=== PATIENT | male | born 1940 | race Caucasian/White ===

== ENCOUNTER → 2023-09-26 | Outpatient (CLI) | payer MEDICARE, SELFPAY ==
[2023-09-26 15:08] LABS: Creatinine, Serum 1.18 mg/dL (0.70-1.30); EST Glomerular Filtration Rate 63 mL/min (>60); Est Glom Filt Rate - Afr Amer 76 mL/min (>60)
== END | disposition home or self-care (01) ==
PROVIDERS: PCP Internal Medicine; Referring Provider Surgery Trauma Surgery; Visit Provider Surgery Trauma Surgery
DX: I65.21 Occlusion and stenosis of right carotid artery (principal)
CPT/HCPCS: 36415; 82565

== ENCOUNTER → 2023-10-11 | Outpatient (CLI) | payer MEDICARE, SELFPAY ==
--- NOTE | 2023-10-11 12:54 | ART_ITS ---
Reason For Study: Claudication Procedure A bilateral lower extremity continuous wave Doppler with analog waveform analysis,segmental pressures,and ankle brachial indexes without exercise. Left Segmental Pressures Left brachial= 114mmHg. Left posterior tibial artery = 186mmHg. Left dorsalis pedis artery = 170mmHg. Left digit = 169 mmHg. The left posterior tibial artery waveforms are triphasic. The left dorsalis pedis waveforms are triphasic. Right Segmental Pressures Right brachial= 164mmHg. Right posterior tibial artery = 175mmHg. Right dorsalis pedis artery = 163mmHg. Right digit = 127 mmHg. The right posterior tibial artery waveforms are triphasic. The right dorsalis pedis waveforms are triphasic. Indices The right ankle brachial index by the posterior tibial artery is 1.07. The right ankle brachial index by the dorsalis pedis is 0.99. The right digital-brachial index is 0.77. The left ankle brachial index by the posterior tibial artery is 1.13. The left ankle brachial index by the dorsalis pedis is 1.04. The left digital-brachial index is 1.03. VL/Lower Ext Art Exam w/o Exercis Interpretation Summary Right CORINNE 1.07, normal. TBI and Doppler/PVR waveforms of the right leg normal a t rest. Left CORINNE 1.13, normal. TBI and Doppler/PVR waveforms of the left leg normal at rest. Ordering Physician: Blake Gonzalez Referring Physician: Jaylen Delaney Performed By: Blas Palacios, RVT
--- NOTE | 2023-10-11 12:54 | CT_ITS ---
STUDY: CTA HEAD AND NECK WITH CONTRAST REASON FOR EXAM: Male, 82 years old. Carotid stenosis RADIATION DOSAGE (If Supplied By Facility): CTDIvol = ( 26.28 ) mGy, DLP = ( 1373.70 ) mGycm TECHNIQUE: CT angiography was performed with a multi-detector CT scanner. Data acquisition was obtained from the skull base through the vertex following intravenous administration of IV 100mL Isovue-370. MIP images were reconstructed from the axial data set. Post-processing of the angiographic images was performed, with multiplanar reformation and 3D reconstruction. Individualized dose optimization techniques were used for this CT. COMPARISON: No relevant priors. FINDINGS: Normal bilateral petrous carotid arteries. There is calcified plaque formation of the right cavernous carotid artery, without a cross-sectional luminal stenosis. There is calcified plaque formation of the left cavernous carotid artery, without a cross-sectional luminal stenosis. Normal right A1 segments of the anterior cerebral artery. Normal left A1 segments of the anterior cerebral artery. Normal intact anterior communicating artery (ACOM). Normal bilateral A2 segments of the anterior cerebral arteries. Normal right M1 and M2 segments of the middle cerebral arteries, with a normal M1 bifurcation. Normal left M1 and M2 segments of the middle cerebral arteries, with a normal M1 bifurcation. There is a persistent origin of the right posterior cerebral artery with absence of the posterior communicating artery (PCOM). There is a persistent origin of the left posterior cerebral artery with absence of the posterior communicating artery (PCOM). Normal bilateral vertebral arteries. Normal basilar artery with a normal basilar bifurcation. The visualized bilateral superior cerebellar (SCA) arteries are normal. Normal bilateral P1, P2 and visualized P3 segments of the posterior cerebral arteries. There is no demonstrated aneurysm of the [place]. Mild degree of cerebral atrophy. Focal hypodensity in the right villafana radiata suggestive of prior ischemic event. AORTIC ARCH: There is atherosclerotic calcific plaque formation of the aortic arch and great vessels arising from the aortic arch, without a hemodynamically significant stenosis. There is a normal origin of the brachiocephalic, left common carotid, and left subclavian arteries. Almost complete occlusion at the origin of the left subclavian artery. There is reconstitution in the region of the left clavicle. RIGHT CAROTID ARTERIES: Normal right common carotid artery (CCA). Normal right common carotid bulb. There is severe atherosclerotic plaque formation of the origin of the right internal carotid artery with a near complete occlusion. Normal visualized cervical portion of the right internal carotid artery. Normal origin of the right external carotid artery (ECA). LEFT CAROTID ARTERIES: Normal left common carotid artery (CCA). Normal left common carotid bulb. There is extensive atherosclerotic plaque formation of the origin of the left internal carotid artery with an estimated stenosis of greater than 70%. Normal visualized cervical portion of the left internal carotid artery. There is extensive atherosclerotic plaque formation of the origin of the left external carotid artery with an estimated stenosis of greater than 70%. VERTEBRAL ARTERIES: Normal bilateral vertebral arteries. CT/CTA Head AND Neck W/ Contrast IMPRESSION: High-grade stenosis of both internal carotid arteries at their origin worse on the right side. 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 Electronically Signed: Abhay Alcantar MD at 15:20 EST ,
== END | disposition home or self-care (01) ==
LOC: CVS 12:54
PROVIDERS: PCP Internal Medicine; Referring Provider Surgery Trauma Surgery; Visit Provider Surgery Trauma Surgery
DX: I65.21 Occlusion and stenosis of right carotid artery (principal); I73.9 Peripheral vascular disease, unspecified
CPT/HCPCS: 70496; 70498; 93923; Q9967

== ENCOUNTER → 2024-03-25 | Outpatient (CLI) | payer MEDICARE, SELFPAY ==
--- NOTE | 2024-03-25 13:06 | CDU_ITS ---
Reason For Study: stenosis Rt. Velocities/BP Lt. Velocities/BP Prox CCA 66.6/14.2 cm/sec. Prox CCA 126.6/15.2 cm/sec. Mid CCA 88.4/13.3 cm/sec. Mid CCA 77.6/12.7 cm/sec. Dist CCA 87.5/14.2 cm/sec. Dist CCA 121.1/13.0 cm/sec. Prox ICA 175.9/35.3 cm/sec. Subclavian artery 322.9/9 cm/sec. Mid ICA 139.4/37.1 cm/sec. Prox ICA 121.6/15.7 cm/sec. Dist ICA 88.8/20.0 cm/sec. Mid ICA 80.6/20.4 cm/sec. Rt. ICA/CCA = 1.9. Dist ICA 81.8 cm/sec. Prox ECA 229./13.8 cm/sec. Lt. ICA/CCA = 1.5. Rt. Vert. 87.2/11.3 cm/sec. Prox ECA 166.0/5.3 cm/sec. Lt. Vert. 69.0/9.6 cm/sec. Right Extracranial There is intimal thickening but no significant atherosclerotic plaque noted in the right common carotid artery. There is heterogeneous, irregular atherosclerotic plaque noted in the right internal carotid artery. There is heterogeneous, irregular atherosclerotic plaque noted in the right external carotid artery. Antegrade flow is noted in the right vertebral artery. Left Extracranial There is intimal thickening but no significant atherosclerotic plaque noted in the left common carotid artery. There is heterogeneous, irregular atherosclerotic plaque noted in the left internal carotid artery. There is heterogeneous, irregular atherosclerotic plaque noted in the left external carotid artery. Retrograde flow noted. Procedure Carotid Duplex 11104. This is a Carotid Duplex examination using B-mode, color flow and specral Doppler. The exam was diagnostic. Exam performed in department. VL/Carotid Duplex Ultrasound Interpretation Summary Moderate (50-69%) stenosis right extracranial internal carotid. Mild (<50%) stenosis left extracranial internal carotid. The Right vertebral is patent and antegrade. The Left vertebral flow is retrograde. Left subclavian artery with >70% stenosis Ordering Physician: Blake Gonzalez Referring Physician: Blake Gonzalze Performed By: Irma Adrian RVT
== END | disposition home or self-care (01) ==
LOC: CVS 13:05
PROVIDERS: PCP Internal Medicine; Referring Provider Surgery Trauma Surgery; Visit Provider Surgery Trauma Surgery
DX: I65.21 Occlusion and stenosis of right carotid artery (principal)
CPT/HCPCS: 93880

== ENCOUNTER → 2024-05-05 | Outpatient (CLI) | payer MEDICARE, SELFPAY ==
[2024-05-05 15:26] LABS: PSA,Total - Annual Screen 7.09 ng/mL (0.00-4.00)
== END | disposition home or self-care (01) ==
LOC: LAB 14:22
PROVIDERS: PCP Internal Medicine; Referring Provider Urology; Visit Provider Urology
DX: Z12.5 Encounter for screening for malignant neoplasm of prostate (principal)
CPT/HCPCS: 36415; 84153; G0103

== ENCOUNTER → 2024-10-28 | Outpatient (CLI) | payer MEDICARE, SELFPAY ==
--- NOTE | 2024-10-28 12:32 | CDU_ITS ---
Reason For Study Reason For Study: Carotid Stenosis Rt. Velocities/BP Lt. Velocities/BP Prox CCA 73.2/10.6 cm/sec. Prox CCA 94.9/9.3 cm/sec. Mid CCA 86.7/8.1 cm/sec. Mid CCA 83.3/13.9 cm/sec. Dist CCA 101.6/10.2 cm/sec. Dist CCA 88.8/10.2 cm/sec. Prox ICA 237.9/40.7 cm/sec. Prox ICA 105.2/28.5 cm/sec. Mid ICA 136.3/14.5 cm/sec. Mid ICA 75.6/15.5 cm/sec. Dist ICA 102.6/22.3 cm/sec. Dist ICA 80.6/11.8 cm/sec. Rt. ICA/CCA = 2.7. Lt. ICA/CCA = 1.3. Prox ECA 205.6/0.0 cm/sec. Prox ECA 134.4/4.7 cm/sec. Rt. Vert. 107.8/9.3 cm/sec. Right Extracranial There is heterogeneous, irregular atherosclerotic plaque noted in the right common carotid artery. There is heterogeneous, irregular atherosclerotic plaque noted in the right internal carotid artery. The atherosclerotic plaque causes acoustic shadowing. There is heterogeneous, irregular atherosclerotic plaque noted in the right external carotid artery. Antegrade flow is noted in the right vertebral artery. Left Extracranial There is heterogeneous, irregular atherosclerotic plaque noted in the left common carotid artery. There is heterogeneous, irregular atherosclerotic plaque noted in the left internal carotid artery. The atherosclerotic plaque causes acoustic shadowing. There is heterogeneous, irregular atherosclerotic plaque noted in the left external carotid artery. Retrograde flow noted in left vertebral artery. Procedure Carotid Duplex 26830. This is a Carotid Duplex examination using B-mode, color flow and specral Doppler. Exam performed in department. VL/Carotid Duplex Ultrasound Interpretation Summary Severe (>70%) stenosis right extracranial internal carotid. Mild (<50%) stenosis left extracranial internal carotid. The Right vertebral is patent and antegrade. The Left vertebral flow is retrograde. Ordering Physician: Reanna Diaz Referring Physician: Shanice Delaney MD Performed By: Hoa Teague RVT and Student
== END | disposition home or self-care (01) ==
LOC: CVS 12:30
PROVIDERS: PCP Internal Medicine; Referring Provider Physician Assistant; Visit Provider Physician Assistant
DX: I65.21 Occlusion and stenosis of right carotid artery (principal); I77.1 Stricture of artery
CPT/HCPCS: 93880

== ENCOUNTER → 2025-04-26 | Outpatient (CLI) | payer MEDICARE, SELFPAY ==
--- NOTE | 2025-04-26 12:55 | CDU_ITS ---
Reason For Study Reason For Study: Right ICA stenosis Rt. Velocities/BP Lt. Velocities/BP Prox CCA 77.8/11.6 cm/sec. Prox CCA 140.7/13.7 cm/sec. Mid CCA 69.2/12.6 cm/sec. Mid CCA 104.5/11.1 cm/sec. Dist CCA 76.8/13.5 cm/sec. Dist CCA 103.8/11.6 cm/sec. Prox ICA 213.3/47.7 cm/sec. Prox ICA 123.6/18.2 cm/sec. Mid ICA 97.2/22.6 cm/sec. Mid ICA 88.8/20 cm/sec. Dist ICA 114.8/22.6 cm/sec. Dist ICA 81.4/18.8 cm/sec. Rt. ICA/CCA = 3.08. Lt. ICA/CCA = 1.18. Prox ECA 187.4/8.6 cm/sec. Prox ECA 163.1 cm/sec. Rt. Vert. 88.5/16 cm/sec. Right Extracranial There is heterogeneous, irregular atherosclerotic plaque noted in the right common carotid artery. There is heterogeneous, irregular atherosclerotic plaque noted in the right internal carotid artery. The atherosclerotic plaque causes acoustic shadowing. There is heterogeneous, irregular atherosclerotic plaque noted in the right external carotid artery. Antegrade flow is noted in the right vertebral artery. Left Extracranial There is heterogeneous, irregular atherosclerotic plaque noted in the left common carotid artery. There is heterogeneous, irregular atherosclerotic plaque noted in the left internal carotid artery. The atherosclerotic plaque causes acoustic shadowing. There is heterogeneous, irregular atherosclerotic plaque noted in the left external carotid artery. Retrograde flow noted in the left vertebral artery. Procedure Carotid Duplex [id number]. This is a Carotid Duplex examination using B-mode, color flow and specral Doppler. Exam performed in department. VL/Carotid Duplex Ultrasound Interpretation Summary Moderate (50-69%) stenosis right extracranial internal carotid. Limited due to calcific shadowing. Mild (<50%) stenosis left extracranial internal carotid. The Right vertebral is patent and antegrade. The Left vertebral flow is retrograde. Ordering Physician: Reanna Diaz Referring Physician: Shanice Delaney Performed By: Hoa Teague RVT
--- NOTE | 2025-04-26 12:55 | CDU_ITS ---
Reason For Study Reason For Study: Right ICA stenosis Rt. Velocities/BP Lt. Velocities/BP Prox CCA 77.8/11.6 cm/sec. Prox CCA 140.7/13.7 cm/sec. Mid CCA 69.2/12.6 cm/sec. Mid CCA 104.5/11.1 cm/sec. Dist CCA 76.8/13.5 cm/sec. Dist CCA 103.8/11.6 cm/sec. Prox ICA 213.3/47.7 cm/sec. Prox ICA 123.6/18.2 cm/sec. Mid ICA 97.2/22.6 cm/sec. Mid ICA 88.8/20 cm/sec. Dist ICA 114.8/22.6 cm/sec. Dist ICA 81.4/18.8 cm/sec. Rt. ICA/CCA = 3.08. Lt. ICA/CCA = 1.18. Prox ECA 187.4/8.6 cm/sec. Prox ECA 163.1 cm/sec. Rt. Vert. 88.5/16 cm/sec. Right Extracranial There is heterogeneous, irregular atherosclerotic plaque noted in the right common carotid artery. There is heterogeneous, irregular atherosclerotic plaque noted in the right internal carotid artery. The atherosclerotic plaque causes acoustic shadowing. There is heterogeneous, irregular atherosclerotic plaque noted in the right external carotid artery. Antegrade flow is noted in the right vertebral artery. Left Extracranial There is heterogeneous, irregular atherosclerotic plaque noted in the left common carotid artery. There is heterogeneous, irregular atherosclerotic plaque noted in the left internal carotid artery. The atherosclerotic plaque causes acoustic shadowing. There is heterogeneous, irregular atherosclerotic plaque noted in the left external carotid artery. Retrograde flow noted in the left vertebral artery. Procedure Carotid Duplex [id number]. This is a Carotid Duplex examination using B-mode, color flow and specral Doppler. Exam performed in department. VL/Carotid Duplex Ultrasound Interpretation Summary Moderate (50-69%) stenosis right extracranial internal carotid. Limited due to calcific shadowing. Mild (<50%) stenosis left extracranial internal carotid. The Right vertebral is patent and antegrade. The Left vertebral flow is retrograde. Ordering Physician: Reanna Diaz Referring Physician: Shanice Delaney Performed By: Hoa Teague RVT
--- OUTSIDE RECORDS SUMMARY | 2025-04-26 20:01 | XMS RPT_ITS | CCD ---
Author Organization [facility] Care Team Providers Care Document Improvement Specialist Name Role Phone BRENNAN BARROS Attending Unavailable BRENNAN BARROS Primary Care Unavailable BRENNAN BARROS Admitting Unavailable Dr. Blake Gonzalez Attending Provider Dr. Cody Delaney Primary Care Provider [phone] CODY DELANEY MD Attending Unavailable CODY DELANEY MD Admitting Unavailable CODY DELANEY MD Primary Care Unavailable CODY DELANEY MD Referring Unavailable LUIS LEBLANC JR Admitting Unavailable LUIS LEBLANC JR Primary Care Unavailable LUIS LEBLANC JR Attending Unavailable CODY DELANEY MD Consulting Unavailable PROVIDER, UNKNOWN Consulting Unavailable PROVIDER, UNKNOWN Consulting Unavailable PROVIDER, UNKNOWN Consulting Unavailable TOMEKA GOMES MD Admitting Unavailable TOMEKA GOMES MD Primary Care Unavailable TOMEKA GOMES MD Attending Unavailable TOMEKA GOMES MD Admitting Unavailable TOMEKA GOMES MD Primary Care Unavailable CODY DELANEY MD Consulting Unavailable TOMEKA GOMES MD Attending Unavailable PROVIDER, UNKNOWN Consulting Unavailable PROVIDER, UNKNOWN Consulting Unavailable PROVIDER, UNKNOWN Consulting Unavailable CODY DELANEY MD Attending Unavailable OCDY DELANEY MD Admitting Unavailable CODY DELANEY MD Primary Care Unavailable CODY DELANEY MD Consulting Unavailable PROVIDER, UNKNOWN Consulting Unavailable PROVIDER, UNKNOWN Consulting Unavailable PROVIDER, UNKNOWN Consulting Unavailable TOMEKA GOMES MD Admitting Unavailable TOMEKA GOMES MD Primary Care Unavailable TOMEKA GOMES MD Attending Unavailable TOMEKA GOMES MD Attending Unavailable TOMEKA GOMES MD Admitting Unavailable TOMEKA GOMES MD Primary Care Unavailable TOMEKA GOMES MD Admitting Unavailable TOMEKA GOMES MD Primary Care Unavailable TOMEKA GOMES MD Attending Unavailable Cody Delaney Primary Care Unavailable Issac Maravilla Referring Unavailable Issac Maravilla Attending Unavailable Cody Delaney Primary Care Unavailable Reanna Diaz Referring Unavailable Reanna Diaz Attending [facility] Unavailable Reanna Diaz Referring Unavailable Reanna Diaz Attending Unavailable [facility] Primary Care Unavailable Blake Gonzalez Attending Unavailable Reanna Diaz Referring Unavailable Medications Current Medications Medication Drug Class(es) Dates Sig (Normalized) Sig (Original) 8 hr acetaminophen 650 mg extended release oral tablet (2 sources) Start: 02-25-2023 take 1 tablet by mouth every eight hours Acetaminophen (Tylenol Arthritis Pain) 650 mg tablet extended release Active 650 MG PO Q8H February 24, 2023 11:00pm atorvastatin 20 mg oral tablet (2 sources) HMG-CoA Reductase Inhibitor Start: 09-26-2023 take 1 tablet by mouth at bedtime Atorvastatin (Lipitor) 20 mg tablet Active 20 MG PO AT BEDTIME September 26, 2023 12:00am folic acid 1 mg oral tablet (2 sources) Start: 02-25-2023 take 1 mg by mouth twice daily Folic Acid Active 1 MG PO TWICE A DAY February 24, 2023 11:00pm latanoprost 0.05 mg/ml ophthalmic solution (2 sources) Prostaglandin Analog Start: 02-25-2023 Latanoprost Active 1 DRP OPHTHALMIC EVERY EVENING February 24, 2023 11:00pm both eyes methotrexate 2.5 mg oral tablet (2 sources) Folate Analog Metabolic Inhibitor Start: 02-25-2023 take 12.5 mg by mouth every week Methotrexate Sodium Active 12.5 MG PO EVERY WEEK February 24, 2023 11:00pm Problems Active Problems Problem Classification Problem Date Documented Da te Episodic/Chronic Disorders of lipid metabolism (1 source) Pure hypercholesterolemi a, unspecified; Translations: [Pure hypercholesterolemi a, unspecified] Onset: 12-17-2024 Chronic Essential hypertension (3 sources) Hypertensive disorder; Translations: [Essential (primary) hypertension] Onset: 12-17-2024 02-25-2023 Chronic Occlusion or stenosis of precerebral arteries (6 sources) Right carotid artery stenosis; Translations: [Occlusion and stenosis of right carotid artery] Onset: 11-12-2024 09-26-2023 Chronic Other circulatory disease (2 sources) Subclavian artery stenosis; Translations: [Stricture of artery] 02-25-2023 Chronic Other circulatory disease (2 sources) Abnormal radial pulse; Translations: [Other specified symptoms and signs involving the circulatory and respiratory systems] 02-25-2023 Episodic Other nervous system disorders (2 sources) Cold feet; Translations: [Unspecified disturbances of skin sensation] 02-25-2023 Episodic Peripheral and visceral atherosclerosis (2 sources) Peripheral vascular disease; Translations: [Peripheral vascular disease, unspecified] 02-25-2023 Chronic Rheumatoid arthritis and related disease (3 sources) Rheumatoid arthritis with rheumatoid factor of unspecified site without organ or systems involvement; Translations: [Rheumatoid arthritis with rheumatoid factor of unspecified site without organ or systems involvement] Onset: 07-31-2024 Chronic Substance-related disorders (2 sources) Tobacco dependence syndrome; Translations: [Nicotine dependence, unspecified, uncomplicated] 02-25-2023 Chronic Past or Other Problems Problem Classification Problem Date Documented Da te Episodic/Chronic Other aftercare (1 source) 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; Translations: [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] Onset: 07-31-2024 Episodic Other screening for suspected conditions (not mental disorders or infectious disease) (2 sources) Other specified abnormal findings of blood chemistry; Translations: [Encounter for screening for malignant neoplasm of prostate] Onset: 05-26-2024 Episodic Results Test Name Value Interpretation Reference Range Facility CBC + DIFFon 04-08-2025 Baso # 0.02 x10EE3/UL Normal 0.00 - 0.10 [facility] Comment on above: Performed By: #### 2 71763 #### [place] [address] Basophils/100 WBC (Bld) 0.3 % Normal 0.0 - 2.0 [facility] Comment on above: Performed By: #### 2 41544 #### [place] [address] CBC + DIFF Normal [facility] Comment on above: Result Comment: CBC- COMPLETE BLOOD COUNT Performed By: #### 2 11293 #### [facility],[address] [place] [address] EO # 0.07 x10EE3/UL Normal 0.00 - 0.50 [facility] Comment on above: Performed By: #### 2 54535 #### [facility],[address] [place], [place] [id number] Eosinophils/100 WBC (Bld) 1.2 % Normal 0.0 - 7.0 [facility] Comment on above: Performed By: #### 2 31727 #### [facility],[address] [place] [address] Erythrocyte distribution width (RBC) [Ratio] 13.5 % Normal 12.0 - 15.6 [facility] Comment on above: Performed By: #### 2 04275 #### [facility],[address] [place] [address] Hematocrit (Bld) [Volume fraction] 41.4 % Normal 40.0 - 52.0 [facility] Comment on above: Performed By: #### 2 59729 #### [facility],[address] [place], [place] [address] Hemoglobin (Bld) [Mass/Vol] 14.4 g/dL Normal 13.0 - 17.5 [facility] Comment on above: Performed By: #### 2 52778 #### [facility],[address] [place] [address] 84915 Lymph # 1.04 x10EE3/UL Normal 0.80 - 2.80 [facility] Comment on above: Performed By: #### 2 78577 #### [facility],[address] [place] [address] 91278 Lymphocytes/100 WBC (Bld) 16.9 % Low 20.0 - 45.0 [facility] Comment on above: Performed By: #### 2 20705 #### [facility],[address] [place] [address] 92495 MANUAL DIFF N/A Normal [facility] Comment on above: Performed By: #### 2 01704 #### [facility],[address] [place] [address] 76454 MCH (RBC) [Entitic mass] 35 pg High 27 - 33 [facility] Comment on above: Performed By: #### 2 15659 #### [facility],[address] [place] [address] 67473 MCHC 35 X10 3 Normal 32 - 36 [facility] Comment on above: Performed By: #### 2 53764 #### [facility],[address] [place] [address] 96925 MCV (RBC) [Entitic vol] 100 fL High 81 - 98 [facility] Comment on above: Performed By: #### 2 05463 #### [facility],[address] [place] [address] 85168 Wharton # 0.66 x10EE3/UL Normal 0.20 - 1.00 [facility] Comment on above: Performed By: #### 2 49262 #### [facility],[address] [place] [address] 41836 MONOS % 10.8 % High 0.0 - 10.0 [facility] Comment on above: Performed By: #### 2 50854 #### [facility],[address] [place] [address] 01506 Morphology Yao (Bld) [Interp] N/A Normal [facility] Comment on above: Performed By: #### 2 02984 #### [facility],[address] [place] [address] 12113 Neut # 4.36 x10EE3/UL Normal 1.50 - 7.10 [facility] Comment on above: Performed By: #### 2 61070 #### [facility],[address] [place] [address] 68878 Neutrophils/100 WBC (Bld) 70.8 % Normal 46.0 - 76.0 [facility] Comment on above: Performed By: #### 2 30547 #### [facility],[address] [place] [address] 64772 PLATELET 186 x10EE3/UL Normal 150 - 450 [facility] Comment on above: Performed By: #### 2 95795 #### [facility],[address] [place] [address] 24296 Platelet mean volume (Bld) [Entitic vol] 9.1 fL Normal 6.4 - 10.5 [facility] Comment on above: Result Comment: AUTO MATED DIFFERENTIAL Performed By: #### 2 40128 #### [facility],[address] [place] [address] 52812 RBC 4.14 x 10EE6/UL Low 4.50 - 6.00 [facility] Comment on above: Performed By: #### 2 86318 #### [facility],[address] [place] [address] 99121 WBC 6.2 x 10EE3/UL Normal 4.5 - 10.8 [facility] Comment on above: Performed By: #### 2 48586 #### [facility],[address] [place] [address] 12700 CMP with eGFRon 04-08-2025 AGE 84 years Normal [facility] Comment on above: Performed By: #### 2 26477 #### [facility],[address] [place] [address] 32846 Albumin [Mass/Vol] 3.5 g/dL Normal 3.4 - 5.0 [facility] Comment on above: Performed By: #### 2 39083 #### [facility],[address] [place] [address] 55495 Albumin/Globulin [Mass ratio] 1.0 {ratio} Normal 0.9 - 1.6 [facility] Comment on above: Performed By: #### 2 25825 #### [facility],[address] [place] [address] 64291 ALK PHOS 118 U/L High 46 - 116 [facility] Comment on above: Performed By: #### 2 33950 #### [facility],[address] [place] [address] 68131 ALT [Catalytic activity/Vol] 42 U/L Normal 16 - 63 [facility] Comment on above: Performed By: #### 2 47748 #### [facility],[address] [place] [address] 83983 Anion gap [Moles/Vol] 11 mmol/L Normal 10 - 20 [facility] Comment on above: Performed By: #### 2 27155 #### [facility],[address] [place] [address] 40121 AST [Catalytic activity/Vol] 25 U/L Normal 15 - 37 [facility] Comment on above: Performed By: #### 2 50143 #### [facility],[address] [place] [address] 51491 B/C RATIO 30 ratio Normal 0 - 30 [facility] Comment on above: Performed By: #### 2 61536 #### [facility],[address] [place] [address] 08713 Bilirubin [Mass/Vol] 0.7 mg/dL Normal 0.2 - 1.0 [facility] Comment on above: Performed By: #### 2 86453 #### [facility],[address] [place] [address] 40464 Calcium [Mass/Vol] 9.1 mg/dL Normal 8.5 - 10.1 [facility] Comment on above: Performed By: #### 2 29837 #### [facility],[address] [place] [address] 01477 Chloride [Moles/Vol] 108 mmol/L High 98 - 107 [facility] Comment on above: Performed By: #### 2 15995 #### [facility],[address] [place] [address] 82067 CMP with eGFR Normal [facility] Comment on above: Result Comment: COMP REHENSIVE METABOLIC PANEL Performed By: #### 2 84792 #### [facility],[address] [place] [address] 71757 CO2 [Moles/Vol] 27.3 mmol/L Normal 21.0 - 32.0 [facility] Comment on above: Performed By: #### 2 29990 #### [facility],[address] [place] [address] 55212 Creatinine [Mass/Vol] 1.23 mg/dL Normal 0.70 - 1.30 [facility] Comment on above: Performed By: #### 2 30918 #### [facility],[address] [place] [address] 05801 eGFR 56 ML/MINUTE Low 60 - 999 [facility] Comment on above: Performed By: #### 2 61504 #### [facility],[address] [place] [address] 41225 GFR/1.73 sq M.predicted among non-blacks MDRD (S/P/Bld) [Vol rate/Area] mL/min/{1.73_m2} Normal 60 - 999 [facility] Comment on above: Result Comment: ACCO RDING TO THE NATIONAL KIDNEY DISEASE EDUCATION PROGRAM(NKDE), A NORMAL eGFR IS A VALUE GREATER THAN OR EQUAL TO 60 ML/MIN/1.73 SQ METERS. CHRONIC KIDNEY DISEASE: <60mL/MIN/1.73 SQ METERS KIDNEY FAILURE: <15mL/MIN/1.73 SQ METERS THIS TEST SHOULD ONLY BE USED FOR PATIENTS 18 YEARS OF AGE AND OLDER. Performed By: #### 2 45107 #### [facility],[address] [place] [address] 75137 Globulin (S) [Mass/Vol] 3.6 g/dL Normal 1.5 - 3.8 [facility] Comment on above: Performed By: #### 2 70708 #### [facility],[address] [place] [address] 35562 Glucose [Mass/Vol] 90 mg/dL Normal 74 - 106 [facility] Comment on above: Performed By: #### 2 73839 #### [facility],[address] [place] [address] Potassium [Moles/Vol] 4.6 mmol/L Normal 3.5 - 5.1 [facility] Comment on above: Performed By: #### 2 78064 #### [facility],[address] [place] [address] Protein [Mass/Vol] 7.1 g/dL Normal 6.4 - 8.2 [facility] Comment on above: Performed By: #### 2 00533 #### [place] [address] Sodium [Moles/Vol] 142 mmol/L Normal 136 - 145 [facility] Comment on above: Performed By: #### 2 43121 #### [place] [address] Urea nitrogen [Mass/Vol] 37 mg/dL High 7 - 18 [facility] Comment on above: Performed By: #### 2 70048 #### [place] [address] CBC + DIFFon 01-13-2025 Baso # 0.01 x10EE3/UL Normal 0.00 - 0.10 [facility] Comment on above: Performed By: #### 2 39384 #### [place] [id number] Basophils/100 WBC (Bld) 0.1 % Normal 0.0 - 2.0 [facility] Comment on above: Performed By: #### 2 02693 #### [place] [address] CBC + DIFF Normal [facility] Comment on above: Result Comment: CBC- COMPLETE BLOOD COUNT Performed By: #### 2 94889 #### [address] [address] EO # 0.03 x10EE3/UL Normal 0.00 - 0.50 [facility] Comment on above: Performed By: #### 2 39753 #### [facility],[address] [place] [address] 89303 Eosinophils/100 WBC (Bld) 0.5 % Normal 0.0 - 7.0 [facility] Comment on above: Performed By: #### 2 71287 #### [facility],[address] [place] [address] Erythrocyte distribution width (RBC) [Ratio] 13.1 % Normal 12.0 - 15.6 [facility] Comment on above: Performed By: #### 2 12220 #### [facility],[address] [place] [address] Hematocrit (Bld) [Volume fraction] 43.0 % Normal 40.0 - 52.0 [facility] Comment on above: Performed By: #### 2 24398 #### [facility],[address] [place] [address] Hemoglobin (Bld) [Mass/Vol] 14.5 g/dL Normal 13.0 - 17.5 [facility] Comment on above: Performed By: #### 2 72724 #### [facility],[address] [place] [address] 60912 Lymph # 0.87 x10EE3/UL Normal 0.80 - 2.80 [facility] Comment on above: Performed By: #### 2 34362 #### [facility],[address] [place] [address] 14472 Lymphocytes/100 WBC (Bld) 15.4 % Low 20.0 - 45.0 [facility] Comment on above: Performed By: #### 2 81856 #### [facility],[address] [place], [place] [address] MANUAL DIFF N/A Normal [facility] Comment on above: Performed By: #### 2 59263 #### [facility],[address] [place] [address] MCH (RBC) [Entitic mass] 35 pg High 27 - 33 [facility] Comment on above: Performed By: #### 2 88884 #### [facility],[address] [place] [address] MCHC 34 X10 3 Normal 32 - 36 [facility] Comment on above: Performed By: #### 2 03116 #### [facility],[address] [place], [place] [address] MCV (RBC) [Entitic vol] 103 fL High 81 - 98 [facility] Comment on above: Performed By: #### 2 26296 #### [facility],[address] [place] [address] Wharton # 0.36 x10EE3/UL Normal 0.20 - 1.00 [facility] Comment on above: Performed By: #### 2 93295 #### [facility],[address] [place], [place] [address] MONOS % 6.3 % Normal 0.0 - 10.0 [facility] Comment on above: Performed By: #### 2 97101 #### [facility],[address] [place], [place] [address] Morphology Yao (Bld) [Interp] N/A Normal [facility] Comment on above: Performed By: #### 2 46551 #### [facility],[address] [place] [address] Neut # 4.41 x10EE3/UL Normal 1.50 - 7.10 [facility] Comment on above: Performed By: #### 2 21116 #### [facility],[address] [place] [address] Neutrophils/100 WBC (Bld) 77.7 % High 46.0 - 76.0 [facility] Comment on above: Performed By: #### 2 45251 #### [facility],[address] [place] [address] 78208 PLATELET 214 x10EE3/UL Normal 150 - 450 [facility] Comment on above: Performed By: #### 2 14064 #### [facility],[address] [place] [address] 25334 Platelet mean volume (Bld) [Entitic vol] 9.1 fL Normal 6.4 - 10.5 [facility] Comment on above: Result Comment: AUTO MATED DIFFERENTIAL Performed By: #### 2 71626 #### [facility],[address] [place] [address] 11068 RBC 4.19 x 10EE6/UL Low 4.50 - 6.00 [facility] Comment on above: Performed By: #### 2 84570 #### [facility],[address] [place] [address] 87153 WBC 5.7 x 10EE3/UL Normal 4.5 - 10.8 [facility] Comment on above: Performed By: #### 2 48141 #### [facility],[address] [place] [address] 16478 CMP with eGFRon 01-13-2025 AGE 84 years Normal [facility] Comment on above: Performed By: #### 2 69729 #### [facility],[address] [place] [address] 75848 Albumin [Mass/Vol] 3.6 g/dL Normal 3.4 - 5.0 [facility] Comment on above: Performed By: #### 2 33171 #### [facility],[address] [place] [address] 79360 Albumin/Globulin [Mass ratio] 1.0 {ratio} Normal 0.9 - 1.6 [facility] Comment on above: Performed By: #### 2 49505 #### [facility],[address] [place] [address] 14598 ALK PHOS 112 U/L Normal 46 - 116 [facility] Comment on above: Performed By: #### 2 56143 #### [facility],[address] [place] [address] 59937 ALT [Catalytic activity/Vol] 30 U/L Normal 16 - 63 [facility] Comment on above: Performed By: #### 2 77381 #### [facility],[address] [place] [address] 80224 Anion gap [Moles/Vol] 13 mmol/L Normal 10 - 20 [facility] Comment on above: Performed By: #### 2 35833 #### [facility],[address] [place] [address] 37548 AST [Catalytic activity/Vol] 22 U/L Normal 15 - 37 [facility] Comment on above: Performed By: #### 2 01655 #### [facility],[address] [place] [address] 35625 B/C RATIO 26 ratio Normal 0 - 30 [facility] Comment on above: Performed By: #### 2 38059 #### [facility],[address] [place] [address] 52664 Bilirubin [Mass/Vol] 0.7 mg/dL Normal 0.2 - 1.0 [facility] Comment on above: Performed By: #### 2 02363 #### [facility],[address] [place] [address] 28786 Calcium [Mass/Vol] 9.6 mg/dL Normal 8.5 - 10.1 [facility] Comment on above: Performed By: #### 2 82976 #### [facility],[address] [place] [address] 27679 Chloride [Moles/Vol] 107 mmol/L Normal 98 - 107 [facility] Comment on above: Performed By: #### 2 27850 #### [facility],[address] [place] [address] 04780 CMP with eGFR Normal [facility] Comment on above: Result Comment: COMP REHENSIVE METABOLIC PANEL Performed By: #### 2 41007 #### [facility],[address] [place] [address] 22485 CO2 [Moles/Vol] 27.8 mmol/L Normal 21.0 - 32.0 [facility] Comment on above: Performed By: #### 2 94474 #### [facility],[address] [place] [address] 97810 Creatinine [Mass/Vol] 1.09 mg/dL Normal 0.70 - 1.30 [facility] Comment on above: Performed By: #### 2 67336 #### [facility],[address] [place] [address] 78100 GFR/1.73 sq M.predicted among non-blacks MDRD (S/P/Bld) [Vol rate/Area] mL/min/{1.73_m2} Normal 60 - 999 [facility] Comment on above: Performed By: #### 2 52994 #### [facility],[address] [place] [address] Result Comment: ACCO RDING TO THE NATIONAL KIDNEY DISEASE EDUCATION PROGRAM(NKDE), A NORMAL eGFR IS A VALUE GREATER THAN OR EQUAL TO 60 ML/MIN/1.73 SQ METERS. CHRONIC KIDNEY DISEASE: <60mL/MIN/1.73 SQ METERS KIDNEY FAILURE: <15mL/MIN/1.73 SQ METERS THIS TEST SHOULD ONLY BE USED FOR PATIENTS 18 YEARS OF AGE AND OLDER. Globulin (S) [Mass/Vol] 3.5 g/dL Normal 1.5 - 3.8 [facility] Comment on above: Performed By: #### 2 61617 #### [facility],[address] [place] [address] 78907 Glucose [Mass/Vol] 151 mg/dL High 74 - 106 [facility] Comment on above: Performed By: #### 2 25135 #### [facility],[address] [place] [address] 04478 Potassium [Moles/Vol] 4.3 mmol/L Normal 3.5 - 5.1 [facility] Comment on above: Performed By: #### 2 07844 #### [address] [address] Protein [Mass/Vol] 7.1 g/dL Normal 6.4 - 8.2 [facility] Comment on above: Performed By: #### 2 58623 #### [address] [address] Sodium [Moles/Vol] 143 mmol/L Normal 136 - 145 [facility] Comment on above: Performed By: #### 2 43015 #### [address] [address] Urea nitrogen [Mass/Vol] 28 mg/dL High 7 - 18 [facility] Comment on above: Performed By: #### 2 16811 #### [address] [address] T4, FREE [CCL]on 12-18-2024 Free T4 [Mass/Vol] 1.2 ng/dL Normal 0.9-1.7 [facility] Comment on above: Result Comment: [facility] [address] [place] [address] Wojciech Fuentes III, M.D. [id number] Performed By: #### 2 33533 #### [address] [address] CBC + DIFFon 12-17-2024 Baso # 0.02 x10EE3/UL Normal 0.00 - 0.10 [facility] Comment on above: Performed By: #### 2 54983 #### [address] [address] Basophils/100 WBC (Bld) 0.3 % Normal 0.0 - 2.0 [facility] Comment on above: Performed By: #### 2 03795 #### [facility] [place] [address] 26715 CBC + DIFF Normal [facility] Comment on above: Result Comment: CBC- COMPLETE BLOOD COUNT Performed By: #### 2 92882 #### [facility],[address] [place] [address] 19644 EO # 0.02 x10EE3/UL Normal 0.00 - 0.50 [facility] Comment on above: Performed By: #### 2 35888 #### [facility],[address] [place] [address] 78681 Eosinophils/100 WBC (Bld) 0.3 % Normal 0.0 - 7.0 [facility] Comment on above: Performed By: #### 2 61358 #### [facility],[address] [place] [address] 61914 Erythrocyte distribution width (RBC) [Ratio] 12.7 % Normal 12.0 - 15.6 [facility] Comment on above: Performed By: #### 2 44634 #### [facility],[address] [place] [address] 08818 Hematocrit (Bld) [Volume fraction] 42.0 % Normal 40.0 - 52.0 [facility] Comment on above: Performed By: #### 2 11863 #### [facility],[address] [place] [address] 14207 Hemoglobin (Bld) [Mass/Vol] 13.9 g/dL Normal 13.0 - 17.5 [facility] Comment on above: Performed By: #### 2 87044 #### [facility],[address] [place] [address] 98114 Lymph # 0.98 x10EE3/UL Normal 0.80 - 2.80 [facility] Comment on above: Performed By: #### 2 16449 #### [facility],[address] [place] [address] 59439 Lymphocytes/100 WBC (Bld) 16.9 % Low 20.0 - 45.0 [facility] Comment on above: Performed By: #### 2 97161 #### [facility],[address] [place] [address] 34041 MANUAL DIFF N/A Normal [facility] Comment on above: Performed By: #### 2 82622 #### [facility],[address] [place] [address] MCH (RBC) [Entitic mass] 34 pg High 27 - 33 [facility] Comment on above: Performed By: #### 2 12430 #### [facility],[address] [place] [address] MCHC 33 X10 3 Normal 32 - 36 [facility] Comment on above: Performed By: #### 2 79063 #### [facility],[address] [place] [address] MCV (RBC) [Entitic vol] 102 fL High 81 - 98 [facility] Comment on above: Performed By: #### 2 39645 #### [facility],[address] [place] [address] Wharton # 0.65 x10EE3/UL Normal 0.20 - 1.00 [facility] Comment on above: Performed By: #### 2 12447 #### [facility],[address] [place] [address] 78608 MONOS % 11.3 % High 0.0 - 10.0 [facility] Comment on above: Performed By: #### 2 80845 #### [facility],[address] [place], [place] [address] Morphology Yao (Bld) [Interp] N/A Normal [facility] Comment on above: Performed By: #### 2 51622 #### [facility],[address] [place] [address] 78350 Neut # 4.10 x10EE3/UL Normal 1.50 - 7.10 [facility] Comment on above: Performed By: #### 2 44910 #### [facility],[address] [place] [address] 10336 Neutrophils/100 WBC (Bld) 71.1 % Normal 46.0 - 76.0 [facility] Comment on above: Performed By: #### 2 74579 #### [facility],[address] [place] [address] 61827 PLATELET 190 x10EE3/UL Normal 150 - 450 [facility] Comment on above: Performed By: #### 2 19341 #### [facility],[address] [place] [address] 59868 Platelet mean volume (Bld) [Entitic vol] 8.7 fL Normal 6.4 - 10.5 [facility] Comment on above: Result Comment: AUTO MATED DIFFERENTIAL Performed By: #### 2 83185 #### [facility],[address] [place] [address] 88197 RBC 4.12 x 10EE6/UL Low 4.50 - 6.00 [facility] Comment on above: Performed By: #### 2 56720 #### [facility],[address] [place] [address] 89277 WBC 5.8 x 10EE3/UL Normal 4.5 - 10.8 [facility] Comment on above: Performed By: #### 2 01106 #### [facility],[address] [place] [address] 42796 CMP with eGFRon 12-17-2024 AGE 84 years Normal [facility] Comment on above: Performed By: #### 2 92520 #### [facility],[address] [place] [address] 81509 Albumin [Mass/Vol] 3.5 g/dL Normal 3.4 - 5.0 [facility] Comment on above: Performed By: #### 2 14658 #### [facility],[address] [place] [address] 11218 Albumin/Globulin [Mass ratio] 1.0 {ratio} Normal 0.9 - 1.6 [facility] Comment on above: Performed By: #### 2 64750 #### [facility],[address] [place] [address] 83407 ALK PHOS 117 U/L High 46 - 116 [facility] Comment on above: Performed By: #### 2 83896 #### [facility],[address] [place] [address] 10747 ALT [Catalytic activity/Vol] 28 U/L Normal 16 - 63 [facility] Comment on above: Performed By: #### 2 19571 #### [facility],[address] [place] [address] 78061 Anion gap [Moles/Vol] 11 mmol/L Normal 10 - 20 [facility] Comment on above: Performed By: #### 2 46969 #### [facility],[address] [place] [address] 50906 AST [Catalytic activity/Vol] 17 U/L Normal 15 - 37 [facility] Comment on above: Performed By: #### 2 21215 #### [facility],[address] [place] [address] 10596 B/C RATIO 22 ratio Normal 0 - 30 [facility] Comment on above: Performed By: #### 2 44692 #### [facility],[address] [place] [address] 25370 Bilirubin [Mass/Vol] 0.7 mg/dL Normal 0.2 - 1.0 [facility] Comment on above: Performed By: #### 2 72263 #### [facility],[address] [place] [address] 59714 Calcium [Mass/Vol] 9.0 mg/dL Normal 8.5 - 10.1 [facility] Comment on above: Performed By: #### 2 77155 #### [facility],[address] [place] [address] 60062 Chloride [Moles/Vol] 106 mmol/L Normal 98 - 107 [facility] Comment on above: Performed By: #### 2 21809 #### [facility],[address] [place] [address] 41103 CMP with eGFR Normal [facility] Comment on above: Result Comment: COMP REHENSIVE METABOLIC PANEL Performed By: #### 2 34489 #### [facility],[address] [place], [place] [address] CO2 [Moles/Vol] 28.8 mmol/L Normal 21.0 - 32.0 [facility] Comment on above: Performed By: #### 2 31626 #### [facility],[address] [place] [address] Creatinine [Mass/Vol] 1.05 mg/dL Normal 0.70 - 1.30 [facility] Comment on above: Performed By: #### 2 23718 #### [place] [address] GFR/1.73 sq M.predicted among non-blacks MDRD (S/P/Bld) [Vol rate/Area] mL/min/{1.73_m2} Normal 60 - 999 [facility] Comment on above: Performed By: #### 2 51391 #### [facility],[address] [place] [address] Result Comment: ACCO RDING TO THE NATIONAL KIDNEY DISEASE EDUCATION PROGRAM(NKDE), A NORMAL eGFR IS A VALUE GREATER THAN OR EQUAL TO 60 ML/MIN/1.73 SQ METERS. CHRONIC KIDNEY DISEASE: <60mL/MIN/1.73 SQ METERS KIDNEY FAILURE: <15mL/MIN/1.73 SQ METERS THIS TEST SHOULD ONLY BE USED FOR PATIENTS 18 YEARS OF AGE AND OLDER. Globulin (S) [Mass/Vol] 3.4 g/dL Normal 1.5 - 3.8 [facility] Comment on above: Performed By: #### 2 27831 #### [facility],[address] [place], [place] [address] Glucose [Mass/Vol] 93 mg/dL Normal 74 - 106 [facility] Comment on above: Performed By: #### 2 53000 #### [facility],[address] [place] [address] 24116 Potassium [Moles/Vol] 4.3 mmol/L Normal 3.5 - 5.1 [facility] Comment on above: Performed By: #### 2 61068 #### [facility],[address] [place] [address] 52084 Protein [Mass/Vol] 6.9 g/dL Normal 6.4 - 8.2 [facility] Comment on above: Performed By: #### 2 85226 #### [facility],[address] [place] [address] 72060 Sodium [Moles/Vol] 141 mmol/L Normal 136 - 145 [facility] Comment on above: Performed By: #### 2 02784 #### [facility],[address] [place] [address] 70124 Urea nitrogen [Mass/Vol] 23 mg/dL High 7 - 18 [facility] Comment on above: Performed By: #### 2 38867 #### [facility],[address] [place] [address] 60877 LIPID PROFILEon 12-17-2024 Cholesterol [Mass/Vol] 158 mg/dL Normal 0 - 240 [facility] Comment on above: Performed By: #### 2 33563 #### [facility],[address] [place] [address] 47714 Cholesterol in HDL [Mass/Vol] 72 mg/dL High 40 - 60 [facility] Comment on above: Performed By: #### 2 25700 #### [facility],[address] [place] [address] 13217 Cholesterol in LDL [Mass/Vol] 81 mg/dL Normal 0 - 129 [facility] Comment on above: Performed By: #### 2 11726 #### [facility],[address] [place] [address] Cholesterol.total/Beatrice sterol in HDL [Mass ratio] 2.2 {ratio} Normal 0.0 - 5.0 [facility] Comment on above: Performed By: #### 2 14541 #### [facility],[address] [place] [address] 59868 Lipid 1996 panel Normal [facility] Comment on above: Result Comment: LIPI D PROFILE Performed By: #### 2 82933 #### [facility],[address] [place] [address] 31458 Triglyceride [Mass/Vol] 27 mg/dL Normal 0 - 150 [facility] Comment on above: Performed By: #### 2 93442 #### [facility],[address] [place] [address] 67035 TSHon 12-17-2024 TSH Qn 3.05 m[IU]/L Normal 0.35 - 3.74 [facility] Comment on above: Performed By: #### 2 01655 #### [facility],[address] [place] [address] 97846 Carotid Duplex Ultrasoundon 10-28-2024 Carotid Duplex Ultrasound [facility] [address] [place] [address] Carotid Duplex Ultrasound 10/28/24 1300 MR#: [id number] Acct: [id number] Name: SABIHA WEBBER Rep #: [id number] : 1940 83 From: Blake Gonzalez MD Attending Dr: TATY Maciel Status: REG CLI Ordering Dr: Reanna Diaz Date: 10/28/24 Location: [facility] Sex: M C Admitted: Reason For Study Reason For Study: Carotid Stenosis Rt. Velocities/BP Lt. Velocities/BP Prox CCA 73.2/10.6 cm/sec. Prox CCA 94.9/9.3 cm/sec. Mid CCA 86.7/8.1 cm/sec. Mid CCA 83.3/13.9 cm/sec. Dist CCA 101.6/10.2 cm/sec. Dist CCA 88.8/10.2 cm/sec. Prox ICA 237.9/40.7 cm/sec. Prox ICA 105.2/28.5 cm/sec. Mid ICA 136.3/14.5 cm/sec. Mid ICA 75.6/15.5 cm/sec. Dist ICA 102.6/22.3 cm/sec. Dist ICA 80.6/11.8 cm/sec. Rt. ICA/CCA = 2.7. Lt. ICA/CCA = 1.3. Prox ECA 205.6/0.0 cm/sec. Prox ECA 134.4/4.7 cm/sec. Rt. Vert. 107.8/9.3 cm/sec. Right Extracranial There is heterogeneous, irregular atherosclerotic plaque noted in the right common carotid artery. There is heterogeneous, irregular atherosclerotic plaque noted in the right internal carotid artery. The atherosclerotic plaque causes acoustic shadowing. There is heterogeneous, irregular atherosclerotic plaque noted in the right external carotid artery. Antegrade flow is noted in the right vertebral artery. Left Extracranial There is heterogeneous, irregular atherosclerotic plaque noted in the left common carotid artery. There is heterogeneous, irregular atherosclerotic plaque noted in the left internal carotid artery. The atherosclerotic plaque causes acoustic shadowing. There is heterogeneous, irregular atherosclerotic plaque noted in the left external carotid artery. Retrograde flow noted in left vertebral artery. Procedure Carotid Duplex 03116. This is a Carotid Duplex examination using B-mode, color flow and specral Doppler. Exam performed in department. VL/Carotid Duplex Ultrasound Interpretation Summary Severe (>70%) stenosis right extracranial internal carotid. Mild (<50%) stenosis left extracranial internal carotid. The Right vertebral is patent and antegrade. The Left vertebral flow is retrograde. Ordering Physician: Reanna Diaz Referring Physician: Cody Delaney MD Performed By: Hoa Teague RVT and Student 10/29/24940 Date Blake Gonzalez MD CC: TATY Maciel; Dr. Cody Delaney MD Date Dictated: 10/28/24 1300 Date Transcribed: 10/29/24940 [employer] Bobbin Winder: Signed Normal [facility] CBC + DIFFon 10-16-2024 Baso # 0.03 x10EE3/UL Normal 0.00 - 0.10 [facility] Comment on above: Performed By: #### 2 49321 #### [facility],[address] [place] [address] Basophils/100 WBC (Bld) 0.3 % Normal 0.0 - 2.0 [facility] Comment on above: Performed By: #### 2 67928 #### [place] [address] CBC + DIFF Normal [facility] Comment on above: Result Comment: CBC- COMPLETE BLOOD COUNT Performed By: #### 2 54708 #### [place] [address] EO # 0.06 x10EE3/UL Normal 0.00 - 0.50 [facility] Comment on above: Performed By: #### 2 30894 #### [facility],[address] [place] [address] Eosinophils/100 WBC (Bld) 0.6 % Normal 0.0 - 7.0 [facility] Comment on above: Performed By: #### 2 03187 #### [place] [address] Erythrocyte distribution width (RBC) [Ratio] 13.6 % Normal 12.0 - 15.6 [facility] Comment on above: Performed By: #### 2 70857 #### [place] [address] Hematocrit (Bld) [Volume fraction] 42.4 % Normal 40.0 - 52.0 [facility] Comment on above: Performed By: #### 2 47685 #### [facility],[address] [place] [address] 90534 Hemoglobin (Bld) [Mass/Vol] 14.1 g/dL Normal 13.0 - 17.5 [facility] Comment on above: Performed By: #### 2 23252 #### [facility],[address] [place], [place] [address] Lymph # 0.70 x10EE3/UL Low 0.80 - 2.80 [facility] Comment on above: Performed By: #### 2 64960 #### [facility],[address] [place], [place] [address] Lymphocytes/100 WBC (Bld) 6.7 % Low 20.0 - 45.0 [facility] Comment on above: Performed By: #### 2 74443 #### [facility],[address] [place] [address] 73623 MANUAL DIFF N/A Normal [facility] Comment on above: Performed By: #### 2 01263 #### [facility],[address] [place] [address] 72988 MCH (RBC) [Entitic mass] 34 pg High 27 - 33 [facility] Comment on above: Performed By: #### 2 12795 #### [facility],[address] [place] [address] 25026 MCHC 33 X10 3 Normal 32 - 36 [facility] Comment on above: Performed By: #### 2 42569 #### [facility],[address] [place] [address] 61029 MCV (RBC) [Entitic vol] 104 fL High 81 - 98 [facility] Comment on above: Performed By: #### 2 78039 #### [facility],[address] [place] [address] 78917 Wharton # 1.04 x10EE3/UL High 0.20 - 1.00 [facility] Comment on above: Performed By: #### 2 17075 #### [facility],[address] [place] [address] 60405 MONOS % 10.1 % High 0.0 - 10.0 [facility] Comment on above: Performed By: #### 2 31271 #### [facility],[address] [place] [address] Morphology Yao (Bld) [Interp] N/A Normal [facility] Comment on above: Performed By: #### 2 29168 #### [facility],[address] [place] [address] Neut # 8.55 x10EE3/UL High 1.50 - 7.10 [facility] Comment on above: Performed By: #### 2 52178 #### [facility],[address] [place], [place] [address] Neutrophils/100 WBC (Bld) 82.4 % High 46.0 - 76.0 [facility] Comment on above: Performed By: #### 2 11790 #### [facility],[address] [place] [address] 59168 PLATELET 194 x10EE3/UL Normal 150 - 450 [facility] Comment on above: Performed By: #### 2 02230 #### [facility],[address] [place] [address] 84093 Platelet mean volume (Bld) [Entitic vol] 9.5 fL Normal 6.4 - 10.5 [facility] Comment on above: Result Comment: AUTO MATED DIFFERENTIAL Performed By: #### 2 99689 #### [facility],[address] [place] [address] 46704 RBC 4.10 x 10EE6/UL Low 4.50 - 6.00 [facility] Comment on above: Performed By: #### 2 96503 #### [facility],[address] [place] [address] 04729 WBC 10.4 x 10EE3/UL Normal 4.5 - 10.8 [facility] Comment on above: Performed By: #### 2 55387 #### [facility],[address] [place] [address] 13889 CMP with eGFRon 10-16-2024 AGE 83 years Normal [facility] Comment on above: Performed By: #### 2 48416 #### [facility],[address] [place] [address] 31116 Albumin [Mass/Vol] 3.3 g/dL Low 3.4 - 5.0 [facility] Comment on above: Performed By: #### 2 57181 #### [facility],[address] [place], [place] [address] Albumin/Globulin [Mass ratio] 1.0 {ratio} Normal 0.9 - 1.6 [facility] Comment on above: Performed By: #### 2 89668 #### [facility],[address] [place] [address] 59979 ALK PHOS 100 U/L Normal 46 - 116 [facility] Comment on above: Performed By: #### 2 74610 #### [facility],[address] [place] [address] 79552 ALT [Catalytic activity/Vol] 36 U/L Normal 16 - 63 [facility] Comment on above: Performed By: #### 2 73728 #### [facility],[address] [place] [address] 68145 Anion gap [Moles/Vol] 7 mmol/L Low 10 - 20 [facility] Comment on above: Performed By: #### 2 11616 #### [facility],[address] [place] [address] 06649 AST [Catalytic activity/Vol] 21 U/L Normal 15 - 37 [facility] Comment on above: Performed By: #### 2 74691 #### [facility],[address] [place] [address] 69303 B/C RATIO 23 ratio Normal 0 - 30 [facility] Comment on above: Performed By: #### 2 45684 #### [facility],[address] [place] [address] 13886 Bilirubin [Mass/Vol] 0.6 mg/dL Normal 0.2 - 1.0 [facility] Comment on above: Performed By: #### 2 80708 #### [facility],[address] [place] [address] 58216 Calcium [Mass/Vol] 9.0 mg/dL Normal 8.5 - 10.1 [facility] Comment on above: Performed By: #### 2 94492 #### [facility],[address] [place] [address] 30058 Chloride [Moles/Vol] 107 mmol/L Normal 98 - 107 [facility] Comment on above: Performed By: #### 2 36261 #### [facility],[address] [place] [address] 96422 CMP with eGFR Normal [facility] Comment on above: Result Comment: COMP REHENSIVE METABOLIC PANEL Performed By: #### 2 35492 #### [facility],[address] [place] [address] 73241 CO2 [Moles/Vol] 30.8 mmol/L Normal 21.0 - 32.0 [facility] Comment on above: Performed By: #### 2 30859 #### [facility],[address] [place] [address] 19769 Creatinine [Mass/Vol] 1.11 mg/dL Normal 0.70 - 1.30 [facility] Comment on above: Performed By: #### 2 00834 #### [facility],[address] [place] [address] 65893 GFR/1.73 sq M.predicted among non-blacks MDRD (S/P/Bld) [Vol rate/Area] mL/min/{1.73_m2} Normal 60 - 999 [facility] Comment on above: Performed By: #### 2 79053 #### [facility],[address] [place] [address] 31594 Result Comment: ACCO RDING TO THE NATIONAL KIDNEY DISEASE EDUCATION PROGRAM(NKDE), A NORMAL eGFR IS A VALUE GREATER THAN OR EQUAL TO 60 ML/MIN/1.73 SQ METERS. CHRONIC KIDNEY DISEASE: <60mL/MIN/1.73 SQ METERS KIDNEY FAILURE: <15mL/MIN/1.73 SQ METERS THIS TEST SHOULD ONLY BE USED FOR PATIENTS 18 YEARS OF AGE AND OLDER. Globulin (S) [Mass/Vol] 3.3 g/dL Normal 1.5 - 3.8 [facility] Comment on above: Performed By: #### 2 69948 #### [facility],[address] [place] [address] 06607 Glucose [Mass/Vol] 86 mg/dL Normal 74 - 106 [facility] Comment on above: Performed By: #### 2 14809 #### [facility],[address] [place] [address] 41530 Potassium [Moles/Vol] 4.1 mmol/L Normal 3.5 - 5.1 [facility] Comment on above: Performed By: #### 2 61319 #### [facility],[address] [place] [address] 93183 Protein [Mass/Vol] 6.6 g/dL Normal 6.4 - 8.2 [facility] Comment on above: Performed By: #### 2 47704 #### [facility],[address] [place] [address] 64096 Sodium [Moles/Vol] 141 mmol/L Normal 136 - 145 [facility] Comment on above: Performed By: #### 2 37967 #### [facility],[address] [place] [address] 54925 Urea nitrogen [Mass/Vol] 25 mg/dL High 7 - 18 [facility] Comment on above: Performed By: #### 2 61591 #### [facility],[address] [place] [address] 23866 ED MED ADMINISTRATION DETAIL on 09-06-2024 ED MED ADMINISTRATION DETAIL Core Man Medication Administration Record [address] [address] [id number] 09/06/2024 Patient: SABIHA WEBBER Sex: Male : 1940 Age: 83y MEASUREMENTS: Wt: 72.6 kg ALLERGIES: No known drug allergies Medication Ordered Medication Administration Date/Time Acetaminophen 14:23 12 Acetaminophen (Tylenol) PO 975 mg given. Allergies Given (Tylenol) PO 975 verified and confirmed 5 rights. Information reviewed with patient 14:23 09/06/2024 mg (NOW x1) including reason for taking this medication, signs of allergic reaction Brannon Melendez R.N. and precautions. Verbalizes understanding. - 14:24 Villa Edwards R.N. 1 of 1 Normal [facility] ED NURSES CLINICAL NOTEon ED NURSES CLINICAL NOTE Nurse Narrative Nurse Clinical Narrative [address] [address] [id number] 09/06/2024 Patient: SABIHA WEBBER Sex: Male : 1940 Age: 83y Disposition: Discharge to Home Disposition Decision Time: 16:04 09/06/2024 Departure Time: 16:57 09/06/2024 TRIAGE Arrived by private vehicle. Historian: patient. Accompanied by family. Triage time: 14:01 09/06/2024. Acuity: LEVEL 4. Chief Complaint: INJURY TO RIGHT KNEE. INJURY TO THE RIGHT HIP. SEPSIS SCREEN: NEGATIVE. SIRS criteria negative. No possible sources of infection. -- 14:11 09/06/24 PADMINI Nascimento R.N. 14:10 09/06/24. BP: 143/81 MAP: 102. HR: 87. RR: 18. O2 saturation: 95% Temperature: 98.9 F. Pain level now 6/10. -- 14:10 09/06/24 PADMINI Nascimento R.N. Measurements: 14:11 09/06/24 Wt: 72.6 kg -- 14:11 09/06/24 PADMINI Nascimento R.N. Medications: unable to obtain home medications -- 14:06 09/06/24 PADMINI Nascimento R.N. Allergies: no known drug allergies -- 14:06 09/06/24 PADMINI Nascimento R.N. 1 of 3 Nurse Narrative Problems: Hyperlipidemia -- 14:06 09/06/24 PADMINI Nascimento R.N. Arthritis -- 14:06 09/06/24 PADMINI Nascimento R.N. ADDITIONAL SURGERIES: Hernia Repair -- 14:08 09/06/24 PADMINI Nascimento R.N. History 14:09/06/24. SOCIAL HX: Former smoker. No alcohol use or drug use. The patient has not traveled outside the [place] Infectious disease exposure: No infectious disease exposure. ABUSE ASSESSMENT: The patient answered yes to the question(s) Do you feel safe in your home? and no to the question(s) Are you afraid to go home?. SELF HARM ASSESSMENT: Self harm assessment was performed. The patient answered no to the question(s) Have you recently felt down, depressed, or hopeless? and Do you have thoughts of harming or killing yourself?. FALL RISK ASSESSMENT: Fall risk assessment completed. Risk factors identified include severe pain. -- 14:11 09/06/24 PADMINI Nascimento R.N. Interventions 14:09/06/24. Advanced care plan discussed with patient. Patient does not have advanced directive. -- 14:11 09/06/24 PADMINI Nascimento R.N. PHYSICAL ASSESSMENT 14:09/06/24. Ambulatory to room. GENERAL / NEURO / PSYCH: Oriented X 4. Alert. Appears in pain. EXTREMITIES: Capillary refill is less than 2 seconds in the extremities. Extremity pulses are within normal limits. Extremities exhibit normal ROM. Neuro-vascular status intact to the extremity. Normal gait. Right hip: tenderness. Right knee: tenderness. SKIN: Skin intact. Skin is warm and dry. -- 14:05 09/06/24 PADMINI Nascimento R.N. 2 of 3 Nurse Narrative NURSING PROGRESS NOTES 14:23 09/06/24. Acetaminophen (Tylenol) PO 975 mg given. Allergies verified and confirmed 5 rights. Information reviewed with patient including reason for taking this medication, signs of allergic reaction and precautions. Verbalizes understanding. -- 14:24 09/06/24 PADMINI Melendez R.N. 15:24 09/06/24. Call light placed in reach. Side rails up x 2. Bed placed in lowest position. Brakes of bed on. -- 15:24 09/06/24 PADMINI Melendez R.N. 15:52 09/06/24. Patient returned from radiology by stretcher. -- 16:17 09/06/24 PADMINI Melendez R.N. DISPOSITION / DISCHARGE Departure time: 16:57 09/06/2024. Condition at departure: improved. The patient was discharged by the physician. The patient was discharged home and accompanied by family. The patient left ambulatory and via private vehicle. Family member driving. -- 17:07 09/06/24 PADMINI Melendez R.N. 16:57 09/06/24. BP: 124/79 MAP: 94. HR: 72. RR: 16. O2 saturation: 96% Temperature: 98 F. Pain level now 10. -- 17:06 09/06/24 PADMINI Melendez R.N. (Electronically signed by Brannon Melendez R.N. 09/06/24 17:10:38 EST) Generated by [facility] 3 of 3 Normal [facility] ED ORDER SHEET (CPOE ONLY)on 09-06-2024 ED ORDER SHEET (CPOE ONLY) Order Sheet Order Sheet [address] [address] [id number] 09/06/2024 Patient: SABIHA WEBBER Sex: Male : 1940 Age: 83y MEASUREMENTS: Wt: 72.6 kg ALLERGIES: No known drug allergies MEDICATION/IV/DRIP/F LUID ORDERS Order Description Priority Entered Acknowledged Completed Acetaminophen (Tylenol) 14:19 09/06/2024 14:19 14:24 PO975 mg (NOW x1) Luis Leblanc D.O. 09/06/2024 09/06/2024 Brannon Edwards R.N. RRhoda LAB ORDERS Order Description Priority Entered Acknowledged Collected Completed DIAGNOSTIC STUDY ORDERS Order Description Priority Entered Acknowledged Completed Knee R Complete Stat Stat 14:18 09/06/2024 14:19 16:15 Luis Leblanc D.O. 09/06/2024 09/06/2024 Brannon Edwards R.N. RRhoda Reason for Study: Pain Femur R 2V Stat Stat 14:18 09/06/2024 14:19 16:15 Luis Leblanc D.O. 09/06/2024 09/06/2024 Brannon Edwards, 1 of 2 Order Sheet R.N. R.N. Reason for Study: Thigh Injury STAFF ORDERS Order Description Priority Entered Acknowledged Collected Completed [Electronically signed by Luis Leblanc D.O. (09/06/2024 16:04 EST)] 2 of 2 Normal [facility] ED PHYSICIAN CLINICAL REPORT on 09-06-2024 ED PHYSICIAN CLINICAL REPORT Narrative Physician Clinical Narrative [address] [address] [id number] 09/06/2024 Patient: SABIHA WEBBER Sex: Male : 1940 Age: 83y Measurements Wt: 72.6 kg Initial Vital Sign Measured Time BP MAP HR RR O2Sat ETCO2 Temp Pain GCS RTS 14:10 09/06/2024 143/81 102 87 18 95% 98.9 F 6 Time Seen: 14:19 09/06/2024. Arrived- By private vehicle. Historian- patient. HISTORY OF PRESENT ILLNESS Chief Complaint: LOWER EXTREMITY PAIN. This started 4 weeks and is still present. Similar symptoms previously. Recent medical care: Not recently seen/assessed. REVIEW OF SYSTEMS CVS: No chest pain. CONSTITUTIONAL: No fever. SKIN: No skin rash. NEUROLOGICAL: No headache. EYES: No blurred vision. THROAT: No sore throat. GI: No abdominal pain, vomiting, diarrhea or black stools. ENDO/HEME/LYMPH: No enlarged lymph nodes. RESPIRATORY: No cough or difficulty breathing. PAST HISTORY See nurses notes. 1 of 3 Narrative Arthritis Hyperlipidemia Surgeries: Hernia Repair Medications: unable to obtain home medications Allergies: no known drug allergies SOCIAL HISTORY No alcohol use or drug use. FAMILY HISTORY Negative. ADDITIONAL NOTES The nursing notes have been reviewed. PHYSICAL EXAM Vital Signs: Have been reviewed. Appearance: Alert. Oriented X3. No acute distress. Anxious. Eyes: Pupils equal, round and reactive to light. Eyes normal inspection. CVS: Normal heart rate and rhythm. Respiratory: No respiratory distress. Back: Normal inspection. Extremities: (There is tenderness to palpation over the right mid hamstring. No bony tenderness or deformity. There is tenderness to palpation proximal to posterior Right knee in the popliteal region. Cords palpated. Deformity. No patellar tenderness. No ligamentous laxity.). Neuro: Oriented X 3. No motor deficit. No sensory deficit. 2 of 3 Narrative PROGRESS AND PROCEDURES MEDICAL DECISION MAKING: (this is an 83-year-old male presenting with right leg pain. It is mostly located behind his right knee and mid hamstring. No obvious deformities. Extensor mechanism is intact in the right knee. No patellar tenderness. Patient is given Tylenol and we did obtain x-rays of the right knee and right femur. Two views of the right femur and four views of the right knee interpreted by myself shows no evidence of fracture or subluxation. patient was counseled on these findings I believe he more than likely has a muscle tear or muscle strain. He is counseled on this. I believe he is stable for discharge home. He is discharged in the care). Disposition: Condition: good. Discharged in good condition. CLINICAL IMPRESSION Contusion to the right thigh and right knee. Fall on the same level by stumbling. DISCHARGE INSTRUCTIONS Follow-up: Follow up with your healthcare provider. Understanding of the discharge instructions verbalized by patient and parent. (Electronically signed by Luis Leblanc D.O. 09/06/24 16:04:18 EST) Generated by [facility] 3 of 3 Normal [facility] ED [facility] BILL 09-06-2024 ED [place] [address] [place] [address] [id number] 09/06/2024 Patient: SABIHA WEBBER Sex: Male : 1940 Age: 83y Item Professional Category Description Facility Code Code Quantity Fee Total Nurse/E/M EMERGENCY 940495 1 $0.00 $0.00 DEPARTMENT VISIT MODERATE SEVERITY (80995-66) Grand Total $0.00 Providers Luis Leblanc D.O. Chief Complaint LOWER EXTREMITY PAIN. Principal Diagnosis Contusion to the right thigh and right knee. Fall on the same level by stumbling. 1 of 2 Superbill ICD-10 Codes W01.0XXA: Fall on same level from slipping, tripping and stumbling without subsequent striking against object, initial encounter S70.11xA: Contusion of right thigh, initial encounter S80.01xA: Contusion of right knee, initial encounter 2 of 2 Normal [facility] ED VISIT SUMMARYon ED VISIT SUMMARY Visit Overview Visit Overview [address] [place] [address] [id number] 09/06/2024 Patient: SABIHA WEBBER Sex: Male : 1940 Age: 83y 09/06/2024 05:10 PM EST ED Arrival:13:53 09/06/2024 EST Status: Recent Travel:no Language:eng Adv Directive:No Isolation Status: Ethnicity:N Fall Risk:risk Infectious Disease Exposure:no Measurements:160.0 lb / 72.6 kg Self-Harm Status:risk Sepsis Screen:negative Chief Complaint:INJURY TO RIGHT KNEE ALLERGIES No Known Drug Allergies HOME MEDICATIONS Unable To Obtain PAST MEDICAL HISTORY / PROBLEMS Arthritis Hyperlipidemia See nurses notes 1 of 3 Visit Overview PAST SURGICAL HISTORY Hernia Repair SOCIAL HISTORY Smoking status: No Alcohol use: No Drug use: No ED COURSE MEDICATIONS GIVEN IN EMERGENCY DEPARTMENT 14:23 09/06/24 Acetaminophen (Tylenol) PO 975 mg IV SITE INFORMATION INTAKE OUTPUT REASSESMENT (most recent) 14:05 09/06/24. Ambulatory to room. GENERAL / NEURO / PSYCH: Oriented X 4. Alert. Appears in pain. EXTREMITIES: Capillary refill is less than 2 seconds in the extremities. Extremity pulses are within normal limits. Extremities exhibit normal ROM. Neuro-vascular status intact to the extremity. Normal gait. Right hip: tenderness. Right knee: tenderness. SKIN: Skin intact. Skin is warm and dry. VITAL SIGNS First Vitals Last Vitals Temp 14:10 09/06/24 98.9 F Temp 16:57 09/06/24 98.0 F BP 14:10 09/06/24 143/81 BP 16:57 09/06/24 124/79 HR 14:10 09/06/24 87 HR 16:57 09/06/24 72 RR 14:10 09/06/24 18 RR 16:57 09/06/24 16 O2 Sat 14:10 09/06/24 95% O2 Sat 16:57 09/06/24 96% Pain 14:10 09/06/24 6 Pain 16:57 09/06/24 1 ETCO2 14:10 09/06/24 ETCO2 16:57 09/06/24 GCS 14:10 09/06/24 GCS 16:57 09/06/24 RTS 14:10 09/06/24 RTS 16:57 09/06/24 2 of 3 Visit Overview PROCEDURES NURSING INTERVENTIONS LABS / STUDIES LABS / STUDIES ORDERED Femur R 2V Knee R Complete CLINICAL IMPRESSION CONTUSION TO THE RIGHT THIGH AND RIGHT KNEE FALL ON THE SAME LEVEL BY STUMBLING 3 of 3 Normal [facility] ED VITALS FLOW SHEETon 09-06 ED VITALS FLOW SHEET Vitals Vital Sign Flow Sheet [address] [address] [id number] 09/06/2024 Patient: SABIHA WEBBER Sex: Male : 1940 Age: 83y Measurements Wt: 72.6 kg Measured Time BP MAP HR RR O2Sat ETCO2 Temp Pain GCS RTS 16:57 09/06/2024 124/79 94 72 16 96% 98.0 F 1 14:10 09/06/2024 143/81 102 87 18 95% 98.9 F 6 1 of 1 Normal [facility] FEMUR RT 2+ VIEWSon 09-06-20 24 FEMUR RT 2+ VIEWS [address] [address] Patient: SABIHA WEBBER Alexandra Phone#: : 1940 Age: 83 Gender: M Pt. Type: ER Account: [id number] Location: [facility] Ordering: LUIS LEBLANC Exam Date: 09/06/2024/14:47 Family Phys: CODY BREWSTERF Charge Code: 412015 Physician: [place] Order #: [id number] Dose#: PROCEDURE: X-RAY FEMUR RT MIN 2 VIEWS COMPARISON: None. INDICATIONS: Thigh injury. FINDINGS: BONES: No significant arthropathy or acute abnormality. Degenerative changes are present at the hip. SOFT TISSUES: Negative. No visible soft tissue swelling. EFFUSION: None visible. OTHER: Negative. CONCLUSION: No acute disease. Dictated by: Luly Zambrano MD on 09/06/2024 at 22:02 Approved by: Luly Zambrano MD on 09/06/2024 at 22:03 Normal [facility] KNEE COMPLETE RT MIN 4 VIEWS on 09-06-2024 KNEE COMPLETE RT MIN 4 VIEWS [place] [address] Patient: SABIHA WEBBER Phone#: : 1940 Age: 83 Gender: M Pt. Type: ER Account: [id number] Location: [facility] Ordering: LUIS LEBLANC Exam Date: 09/06/2024/14:38 Family Phys: CODY DELANEY Charge Code: 708829 Physician: [place] Order #: [id number] Dose#: PROCEDURE: X-RAY KNEE RT COMPLETE 4 VIEWS COMPARISON: None. INDICATIONS: Pain. FINDINGS: BONES: Normal. No significant arthropathy or acute abnormality. SOFT TISSUES: Negative. No visible soft tissue swelling. EFFUSION: None visible. OTHER: Negative. CONCLUSION: No acute disease. Dictated by: Luly Zambrano MD on 09/06/2024 at 22:01 Approved by: Luly Zambrano MD on 09/06/2024 at 22:01 Normal [facility] CBC + DIFFon 07-31-2024 Baso # 0.02 x10EE3/UL Normal 0.00 - 0.10 [facility] Comment on above: Performed By: #### 2 00456 #### [facility],[address],[place] [address] Basophils/100 WBC (Bld) 0.3 % Normal 0.0 - 2.0 [facility] Comment on above: Performed By: #### 2 54044 #### [facility],[address] [place] [address] CBC + DIFF Normal [facility] Comment on above: Result Comment: CBC- COMPLETE BLOOD COUNT Performed By: #### 2 68618 #### [facility],[address] [place] [address] EO # 0.03 x10EE3/UL Normal 0.00 - 0.50 [facility] Comment on above: Performed By: #### 2 55600 #### [facility],[address] [place] [address] Eosinophils/100 WBC (Bld) 0.5 % Normal 0.0 - 7.0 [facility] Comment on above: Performed By: #### 2 60786 #### [facility],[address] [place] [address] Erythrocyte distribution width (RBC) [Ratio] 13.6 % Normal 12.0 - 15.6 [facility] Comment on above: Performed By: #### 2 94919 #### [facility],[address] [place] [address] Hematocrit (Bld) [Volume fraction] 43.5 % Normal 40.0 - 52.0 [facility] Comment on above: Performed By: #### 2 61329 #### [facility],[address] [place] [address] Hemoglobin (Bld) [Mass/Vol] 14.7 g/dL Normal 13.0 - 17.5 [facility] Comment on above: Performed By: #### 2 87475 #### [facility],[address] [place], [place] [id number] Lymph # 0.99 x10EE3/UL Normal 0.80 - 2.80 [facility] Comment on above: Performed By: #### 2 39234 #### [facility],[address] [place], [place] [address] Lymphocytes/100 WBC (Bld) 13.4 % Low 20.0 - 45.0 [facility] Comment on above: Performed By: #### 2 77040 #### [facility],[address] [place] [address] MANUAL DIFF N/A Normal [facility] Comment on above: Performed By: #### 2 07331 #### [facility],[address] [place] [address] MCH (RBC) [Entitic mass] 34 pg High 27 - 33 [facility] Comment on above: Performed By: #### 2 51233 #### [facility],[address] [place] [address] MCHC 34 X10 3 Normal 32 - 36 [facility] Comment on above: Performed By: #### 2 22560 #### [facility],[address] [place], [place] [address] MCV (RBC) [Entitic vol] 100 fL High 81 - 98 [facility] Comment on above: Performed By: #### 2 84633 #### [facility],[address] [place] [address] [place] # 0.60 x10EE3/UL Normal 0.20 - 1.00 [facility] Comment on above: Performed By: #### 2 46889 #### [facility],[address] [place], [place] [address] MONOS % 8.0 % Normal 0.0 - 10.0 [facility] Comment on above: Performed By: #### 2 89640 #### [facility],[address] [place] [address] Morphology Yao (Bld) [Interp] N/A Normal [facility] Comment on above: Performed By: #### 2 76761 #### [facility],[address] [place] [address] Neut # 5.79 x10EE3/UL Normal 1.50 - 7.10 [facility] Comment on above: Performed By: #### 2 64367 #### [facility],[address] [place] [address] Neutrophils/100 WBC (Bld) 77.9 % High 46.0 - 76.0 [facility] Comment on above: Performed By: #### 2 27447 #### [facility],[address] [place] [address] PLATELET 198 x10EE3/UL Normal 150 - 450 [facility] Comment on above: Performed By: #### 2 20190 #### [facility],[address] [place] [address]73 Platelet mean volume (Bld) [Entitic vol] 8.8 fL Normal 6.4 - 10.5 [facility] Comment on above: Result Comment: AUTO MATED DIFFERENTIAL Performed By: #### 2 80311 #### [facility],[address] [place] [address] 28072 RBC 4.33 x 10EE6/UL Low 4.50 - 6.00 [facility] Comment on above: Performed By: #### 2 64990 #### [facility],[address] [place] [address] WBC 7.4 x 10EE3/UL Normal 4.5 - 10.8 [facility] Comment on above: Performed By: #### 2 06945 #### [facility],[address] [place] [address] CMP with eGFRon 07-31-2024 AGE 83 years Normal [facility] Comment on above: Performed By: #### 2 26608 #### [facility],[address] [place] [address] Albumin [Mass/Vol] 3.7 g/dL Normal 3.4 - 5.0 [facility] Comment on above: Performed By: #### 2 45544 #### [facility],[address] [place] [address] Albumin/Globulin [Mass ratio] 1.0 {ratio} Normal 0.9 - 1.6 [facility] Comment on above: Performed By: #### 2 70624 #### [facility],[address] [place] [address]46[address] ALK PHOS 109 U/L Normal 46 - 116 [facility] Comment on above: Performed By: #### 2 85830 #### [facility],[address] [place] [address]2707 ALT [Catalytic activity/Vol] 25 U/L Normal 16 - 63 [facility] Comment on above: Performed By: #### 2 07357 #### [facility],[address] [place] [address]33 Anion gap [Moles/Vol] 12 mmol/L Normal 10 - 20 [facility] Comment on above: Performed By: #### 2 46381 #### [facility],[address] [place] [address] 34227 AST [Catalytic activity/Vol] 23 U/L Normal 15 - 37 [facility] Comment on above: Performed By: #### 2 04812 #### [facility],[address] [place] [address]7838 B/C RATIO 22 ratio Normal 0 - 30 [facility] Comment on above: Performed By: #### 2 03007 #### [facility],[address] [place] [address]228 Bilirubin [Mass/Vol] 0.7 mg/dL Normal 0.2 - 1.0 [facility] Comment on above: Performed By: #### 2 29891 #### [facility],[address] [place] [address] 10868 Calcium [Mass/Vol] 9.7 mg/dL Normal 8.5 - 10.1 [facility] Comment on above: Performed By: #### 2 56569 #### [facility],[address] [place] [address]3962 Chloride [Moles/Vol] 105 mmol/L Normal 98 - 107 [facility] Comment on above: Performed By: #### 2 58230 #### [facility],[address] [place] [address]9380 CMP with eGFR Normal [facility] Comment on above: Result Comment: COMP REHENSIVE METABOLIC PANEL Performed By: #### 2 94718 #### [facility],[address] [place] [address] 97951 CO2 [Moles/Vol] 29.1 mmol/L Normal 21.0 - 32.0 [facility] Comment on above: Performed By: #### 2 20361 #### [facility],[address] [place] [address]3542 Creatinine [Mass/Vol] 1.22 mg/dL Normal 0.70 - 1.30 [facility] Comment on above: Performed By: #### 2 63629 #### [facility],[address] [place] [address]2375 eGFR 57 ML/MINUTE Low 60 - 999 [facility] Comment on above: Performed By: #### 2 77967 #### [facility],[address] [place] [address] 11426 GFR/1.73 sq M.predicted among non-blacks MDRD (S/P/Bld) [Vol rate/Area] mL/min/{1.73_m2} Normal 60 - 999 [facility] Comment on above: Result Comment: ACCO RDING TO THE NATIONAL KIDNEY DISEASE EDUCATION PROGRAM(NKDE), A NORMAL eGFR IS A VALUE GREATER THAN OR EQUAL TO 60 ML/MIN/1.73 SQ METERS. CHRONIC KIDNEY DISEASE: <60mL/MIN/1.73 SQ METERS KIDNEY FAILURE: <15mL/MIN/1.73 SQ METERS THIS TEST SHOULD ONLY BE USED FOR PATIENTS 18 YEARS OF AGE AND OLDER. Performed By: #### 2 24709 #### [facility],[address] [place] [address]356 Globulin (S) [Mass/Vol] 3.7 g/dL Normal 1.5 - 3.8 [facility] Comment on above: Performed By: #### 2 16577 #### [facility],[address] [place] [address] 94636 Glucose [Mass/Vol] 97 mg/dL Normal 74 - 106 [facility] Comment on above: Performed By: #### 2 72887 #### [facility],[address] [place] [address] Potassium [Moles/Vol] 4.9 mmol/L Normal 3.5 - 5.1 [facility] Comment on above: Performed By: #### 2 65381 #### [facility],[address] [place] [address] 18799 Protein [Mass/Vol] 7.4 g/dL Normal 6.4 - 8.2 [facility] Comment on above: Performed By: #### 2 39042 #### [facility],[address] [place] [address] 12519 Sodium [Moles/Vol] 141 mmol/L Normal 136 - 145 [facility] Comment on above: Performed By: #### 2 79542 #### [facility],[address] [place] [address] 56873 Urea nitrogen [Mass/Vol] 27 mg/dL High 7 - 18 [facility] Comment on above: Performed By: #### 2 78010 #### [facility],[address] [place] [address] 38587 CBC + DIFFon 05-07-2024 Baso # 0.02 x10EE3/UL Normal 0.00 - 0.10 [facility] Comment on above: Performed By: #### 2 35196 #### [facility],[address] [place] [address] 07748 Basophils/100 WBC (Bld) 0.3 % Normal 0.0 - 2.0 [facility] Comment on above: Performed By: #### 2 73717 #### [facility],[address] [place] [address] CBC + DIFF Normal [facility] Comment on above: Result Comment: CBC- COMPLETE BLOOD COUNT Performed By: #### 2 79041 #### [facility],[address] [place] [address] EO # 0.05 x10EE3/UL Normal 0.00 - 0.50 [facility] Comment on above: Performed By: #### 2 06061 #### [facility],[address] [place] [address] Eosinophils/100 WBC (Bld) 0.9 % Normal 0.0 - 7.0 [facility] Comment on above: Performed By: #### 2 33651 #### [facility],[address] [place] [address] Erythrocyte distribution width (RBC) [Ratio] 13.4 % Normal 12.0 - 15.6 [facility] Comment on above: Performed By: #### 2 91198 #### [facility],[address] [place] [address] Hematocrit (Bld) [Volume fraction] 40.2 % Normal 40.0 - 52.0 [facility] Comment on above: Performed By: #### 2 10440 #### [facility],[address] [place] [address] Hemoglobin (Bld) [Mass/Vol] 13.6 g/dL Normal 13.0 - 17.5 [facility] Comment on above: Performed By: #### 2 90807 #### [facility],[address] [place] [address] Lymph # 0.82 x10EE3/UL Normal 0.80 - 2.80 [facility] Comment on above: Performed By: #### 2 96214 #### [facility],[address] [place], [place] [address] Lymphocytes/100 WBC (Bld) 13.3 % Low 20.0 - 45.0 [facility] Comment on above: Performed By: #### 2 98292 #### [facility],[address] [place] [address] MANUAL DIFF N/A Normal [facility] Comment on above: Performed By: #### 2 65411 #### [facility],[address] [place] [address] MCH (RBC) [Entitic mass] 34 pg High 27 - 33 [facility] Comment on above: Performed By: #### 2 71835 #### [facility],[address] [place] [address] MCHC 34 X10 3 Normal 32 - 36 [facility] Comment on above: Performed By: #### 2 [id number] #### [facility],[address] [place] [address] MCV (RBC) [Entitic vol] 99 fL High 81 - 98 [facility] Comment on above: Performed By: #### 2 99038 #### [facility],[address] [place] [address] Wharton # 0.64 x10EE3/UL Normal 0.20 - 1.00 [facility] Comment on above: Performed By: #### 2 15548 #### [facility],[address] [place] [address] MONOS % 10.5 % High 0.0 - 10.0 [facility] Comment on above: Performed By: #### 2 27756 #### [facility],[address] [place], [place] [id number] Morphology Yao (Bld) [Interp] N/A Normal [facility] Comment on above: Performed By: #### 2 43987 #### [facility],[address],[place] [address] Neut # 4.61 x10EE3/UL Normal 1.50 - 7.10 [facility] Comment on above: Performed By: #### 2 24269 #### [facility],[address] [place] [address] 76894 Neutrophils/100 WBC (Bld) 75.0 % Normal 46.0 - 76.0 [facility] Comment on above: Performed By: #### 2 18069 #### [facility],[address] [place] [address] 88096 PLATELET 184 x10EE3/UL Normal 150 - 450 [facility] Comment on above: Performed By: #### 2 43900 #### [facility],[address] [place] [address] 65484 Platelet mean volume (Bld) [Entitic vol] 8.6 fL Normal 6.4 - 10.5 [facility] Comment on above: Result Comment: AUTO MATED DIFFERENTIAL Performed By: #### 2 42936 #### [facility],[address] [place] [address] 72899 RBC 4.04 x 10EE6/UL Low 4.50 - 6.00 [facility] Comment on above: Performed By: #### 2 44884 #### [facility],[address] [place] [address] 56983 WBC 6.1 x 10EE3/UL Normal 4.5 - 10.8 [facility] Comment on above: Performed By: #### 2 35228 #### [facility],[address] [place] [address] 40927 CMP with eGFRon 05-07-2024 AGE 83 years Normal [facility] Comment on above: Performed By: #### 2 22913 #### [facility],[address] [place] [address] 58136 Albumin [Mass/Vol] 3.3 g/dL Low 3.4 - 5.0 [facility] Comment on above: Performed By: #### 2 10005 #### [facility],[address] [place] [address] 43885 Albumin/Globulin [Mass ratio] 0.9 {ratio} Normal 0.9 - 1.6 [facility] Comment on above: Performed By: #### 2 48993 #### [facility],[address] [place] [address] 49087 ALK PHOS 117 U/L High 46 - 116 [facility] Comment on above: Performed By: #### 2 11873 #### [facility],[address] [place] [address] 94746 ALT [Catalytic activity/Vol] 23 U/L Normal 16 - 63 [facility] Comment on above: Performed By: #### 2 01723 #### [facility],[address] [place] [address] 95721 Anion gap [Moles/Vol] 12 mmol/L Normal 10 - 20 [facility] Comment on above: Performed By: #### 2 24578 #### [facility],[address] [place] [address] 86206 AST [Catalytic activity/Vol] 21 U/L Normal 15 - 37 [facility] Comment on above: Performed By: #### 2 24331 #### [facility],[address] [place] [address] 48632 B/C RATIO 25 ratio Normal 0 - 30 [facility] Comment on above: Performed By: #### 2 03376 #### [facility],[address] [place] [address] 21745 Bilirubin [Mass/Vol] 0.7 mg/dL Normal 0.2 - 1.0 [facility] Comment on above: Performed By: #### 2 11022 #### [facility],[address] [place] [address] 97890 Calcium [Mass/Vol] 9.6 mg/dL Normal 8.5 - 10.1 [facility] Comment on above: Performed By: #### 2 89526 #### [facility],[address] [place] [address] 75507 Chloride [Moles/Vol] 105 mmol/L Normal 98 - 107 [facility] Comment on above: Performed By: #### 2 14554 #### [facility],[address] [place] [address] 72542 CMP with eGFR Normal [facility] Comment on above: Result Comment: COMP REHENSIVE METABOLIC PANEL Performed By: #### 2 21812 #### [facility],[address] [place] [address] 66283 CO2 [Moles/Vol] 27.6 mmol/L Normal 21.0 - 32.0 [facility] Comment on above: Performed By: #### 2 06520 #### [facility],[address] [place] [address] 36995 Creatinine [Mass/Vol] 1.06 mg/dL Normal 0.70 - 1.30 [facility] Comment on above: Performed By: #### 2 24637 #### [facility],[address] [place] [address] 25452 GFR/1.73 sq M.predicted among non-blacks MDRD (S/P/Bld) [Vol rate/Area] mL/min/{1.73_m2} Normal 60 - 999 [facility] Comment on above: Performed By: #### 2 26430 #### [facility],[address] [place] [address] 62974 Result Comment: ACCO RDING TO THE NATIONAL KIDNEY DISEASE EDUCATION PROGRAM(NKDE), A NORMAL eGFR IS A VALUE GREATER THAN OR EQUAL TO 60 ML/MIN/1.73 SQ METERS. CHRONIC KIDNEY DISEASE: <60mL/MIN/1.73 SQ METERS KIDNEY FAILURE: <15mL/MIN/1.73 SQ METERS THIS TEST SHOULD ONLY BE USED FOR PATIENTS 18 YEARS OF AGE AND OLDER. Globulin (S) [Mass/Vol] 3.7 g/dL Normal 1.5 - 3.8 [facility] Comment on above: Performed By: #### 2 04889 #### [facility],[address] [place] [address] 19942 Glucose [Mass/Vol] 80 mg/dL Normal 74 - 106 [facility] Comment on above: Performed By: #### 2 48373 #### [facility],[address] [place] [address] 45531 Potassium [Moles/Vol] 4.7 mmol/L Normal 3.5 - 5.1 [facility] Comment on above: Performed By: #### 2 07155 #### [facility],[address] [place] [address] 06789 Protein [Mass/Vol] 7.0 g/dL Normal 6.4 - 8.2 [facility] Comment on above: Performed By: #### 2 30099 #### [facility],[address] [place] [address] 84726 Sodium [Moles/Vol] 140 mmol/L Normal 136 - 145 [facility] Comment on above: Performed By: #### 2 69151 #### [facility],[address] [place] [address] 41792 Urea nitrogen [Mass/Vol] 27 mg/dL High 7 - 18 [facility] Comment on above: Performed By: #### 2 22102 #### [facility],[address] [place] [address] 92277 PSA,Total - Annual Screenon 05-05-2024 PSA,TOT SCREEN 7.09 ng/mL High 0.00-4.00 [facility] Comment on above: Result Comment: This test was performed using the TPSA assay method for the TripletPlus chemistry system. Values obtained with different assay methods cannot be used interchangably. When changing PSA assays in the course of monitoring a patient, additional sequential testing should be carried out to confirm baseline values. Performed By: #### L [phone] #### [facility] [place], [address] No Panel InformationOrdered By: Blake Gonzalez on 09-26-2023 Estimated GFR (MDRD) Amer 76 mL/min >60 [facility] Comment on above: GFR Calc Estimated GFR (MDRD) Non-Af Amer 63 mL/min >60 [facility] Comment on above: Non- GFR Calc Serum or plasma creatinine m easurement (mass/volume)Ordered By: Blake Gonzalez on 09-26-2023 Creatinine [Mass/Vol] 1.18 mg/dL 0.70-1.30 [facility] Comment on above: The validity of the calculated GFR & GFRAA in patients over 70 years has not been determined. Clinical correlation is essential. Vital Signs Date Time Vital Sign Value Performing Clinician Fionai valentinay 09-26-2023 13:14-0500 Body temperature 98.4 [degF] Dr. Blake Gonzalez Work Phone: [facility] 09-26-2023 13:14-0500 Body weight 59.[address] Blake Gonzalez Work Phone: [facility] 09-26-2023 13:14-0500 Diastolic blood pressure 76 mm[Hg] Dr. Blake Gonzalez Work Phone: [facility] 09-26-2023 13:14-0500 Heart rate 74 /min Dr. Blake Gonzalez Work Phone: [facility] 09-26-2023 13:14-0500 Respiratory rate 16 /min Dr. Blake Gonzalez Work Phone: [facility] 09-26-2023 13:14-0500 SaO2% (BldA) [Mass fraction] 96 % Dr. Blake Gonzalez Work Phone: [facility] 09-26-2023 13:14-0500 Systolic blood pressure 148 mm[Hg] Dr. Blake Gonzalez Work Phone: [facility] Encounters Encounter Date Encounter Type Care Provider Facility Start: 04-26-2025 ambulatory Cody Delaney Facility: [facility] Start: 04-08-2025 End: 04-08-2025 ambulatory TOMEKA MD VELLANKI [facility] Start: 01-13-2025 End: 01-13-2025 ambulatory [facility] L[facility]PEZ [facility] Start: 12-17-2024 End: 12-17-2024 ambulatory CODY DELANEY [facility] Start: 12-11-2024 ambulatory CODY DELANEY [facility] Start: 10-28-2024 ambulatory [facility] Facility: [facility] Start: 10-28-2024 End: 10-28-2024 ambulatory [facility] Facility:[facility] Start: 10-16-2024 End: 10-16-2024 ambulatory TOMEKA LÓPEZ [facility] Start: 09-06-2024 End: 09-06-2024 [facility] department [facility] Start: 07-31-2024 End: 07-31-2024 amb[facility] Start: 05-07-2024 End: 05-07-2024 ambulatory [facility] Start: 05-05-2024 End: 05-05-2024 ambulatory [facility] Facility:[facility] Start: 10-11-2023 Non-patient / Non-visit Dr. Boo Delaney Work Phone: [facility] Start: 10-11-2023 End: 10-11-[address] Cody Delaney Work Phone: [facility] Work Phone: Start: 10-11-2023 End: 10-11-[address] Cody Delaney Work Phone: [facility] Work Phone: Start: 09-26-2023 End: 09-26-[address] Blake Gonzalez Work Phone: [facility] Work Phone: Start: 09-26-2023 End: 09-26-[address] Blake Gonzalez Work Phone: [facility] Work Phone: Start: 09-26-2023 End: 09-26-[address] Blake Gonzalez Work Phone: [facility] Work Phone: Start: 08-16-2023 Emergency department patient visit BRENNAN BARROS [facility] Procedures Date Procedure Procedure Detail Performing Clinician Start: 10-11-2023 CT angiography of he ad and neck Dr. Cody Delaney Work Phone: Plan of Treatment Date Care Activity Detail Author Ankle brachial pressure index [facility] CTA Head vessels and Neck vessels W contrast IV [facility] Payers Date Payer Category Payer Self-pay 2010 Unknown [id number] 1940 Unknown [id number] 2.16.8 [id number] 1940 Unknown [id number] 2.16.8 [id number] 1940 Unknown [id number] 2.16.8 [id number] 1940 Unknown [id number] 2.16.8 [id number] 1940 Unknown [id number] 2.16.8 [id number] 1940 Unknown [id number] 2.16.8 [id number] 1940 Unknown [id number] 2.16.8 [id number] 1940 Unknown [id number] 2.16.8 [id number] Unknown [id number] 2.16.8 [id number] Unknown [id number] 2.16.8 [id number] Unknown [id number] 2.16.8 [id number] Unknown [id number] 2.16.8 [id number] Social History Date Type Detail Facility Start: [facility]23 [facility] Start: 1940 Sex Assigned At Male [facility] Clinical Note 09-06-2024 Note Date & Type Note Facility 09-06-2024 Note Discharge Instructio ns Discharge Summary [address] [address] [id number] 09/06/2024 Patient: SABIHA WEBBER Sex: Male : 1940 Age: 83y Thank you for visiting [facility]. You have been evaluated today by Luis Leblanc D.O. for the following condition(s): Principal Diagnosis Contusion to the right thigh and right knee. Fall on the same level by stumbling. INSTRUCTIONS Follow-up: Follow up with your healthcare provider. Understanding of the discharge instructions verbalized by patient and parent. You have been given the following additional information: After a Fall Lower Extremity Bruise Patient Signature Facility Photograph Editor Date/Time 1 of 5 Discharge Instructions General Instructions with ExitWriter [address] [address] [id number] 09/06/2024 Patient: SABIHA WEBBER Sex: Male : 1940 Age: 83y Thank you for visiting [facility]. You have been evaluated today by Luis Leblanc D.O. for the following condition(s): Principal Diagnosis Contusion to the right thigh and right knee. Fall on the same level by stumbling. INSTRUCTIONS Follow-up: Follow up with your healthcare provider. Understanding of the discharge instructions verbalized by patient and parent. ADDITIONAL INFORMATION After a Fall You have had a fall today. That means that you slipped, tripped, or lost your balance. If your fall had been because of fainting or a seizure, you might need other tests. It is normal to feel sore and tight in your muscles and back the next day, and not just the muscles you injured. Remember, all the parts of your body are connected, so while one area hurts now, the next day another may hurt. Also, when you injure yourself, it causes inflammation. This then causes the muscles to tighten up and hurt more. After the initial worsening, it should slowly improve over the next few days. Tell your healthcare provider if you have more severe pain. 2 of 5 Discharge Instructions Even without a definite head injury, you can still get a concussion from your head suddenly jerking forward, backward, or sideways when you fall. Concussions and even bleeding can still happen, especially if you have had a recent injury or take blood thinner medicine. It is not unusual to have a mild headache and feel tired and even nauseous or dizzy. Home care Rest today and go back to your normal activities when you are feeling back to normal. If you were injured during the fall, follow the advice from your healthcare provider about how to care for your injury. At first, don't try to stretch out the sore spots. If there is a strain, stretching may make it worse. Massage may help relax the muscles without stretching them. Use an ice pack or cold compress on and off at the sore spots 10 to 20 minutes at a time, as often as you feel comfortable. This may help reduce the inflammation, swelling, and pain. Know that if you have any scrapes (abrasions), they often heal within 10 days. Keep the scrapes clean while they start to heal. But an infection may happen even with correct care. So watch for early signs of infection (such as warmth, redness, or swelling). Medicines Talk with your healthcare provider before taking new medicines, especially if you have other health problems or are taking other medicines. If you need anything for pain, use acetaminophen or ibuprofen, unless you were given a different pain medicine to use. Talk with your healthcare provider before using these medicines if you: o Have chronic liver or kidney disease o Ever had a stomach ulcer or gastrointestinal bleeding o Are taking blood-thinner medicines Be careful if you are given prescription pain medicines, narcotics, or medicine for muscle spasm. They can make you sleepy and dizzy. And they can affect your coordination, reflexes, and judgment. Don't drive or do work where you can hurt yourself when taking them. Fall prevention Fix, remove, or replace anything that caused your fall. Make your home safe by keeping walkways clear of objects you may trip over. Use nonslip pads under rugs. Don't use small area rugs or throw rugs. Don't walk in poorly lit areas. Don't stand on chairs or wobbly ladders. 3 of 5 Discharge Instructions Be careful when reaching overhead or looking upward. This position can cause a loss of balance. Be sure your shoes fit correctly, have nonslip bottoms, and are in good condition. Be careful when going up and down curbs, and walking on uneven sidewalks. If your balance is poor, think about using a cane or walker. Stay as active as you can. Balance, flexibility, strength, and endurance all come from exercise. They all play a role in preventing falls. If (more content not included)... 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 Phone: Summary Purpose Family History No Family History Records Found Relationship Condition Age at Onset Recorded Date/T maria fernanda Not Specified Sudden cardiac Unknown father Myocardial infarction Unknown mother Cerebrovascular accident (CVA) Unknown brother Malignant neoplasm Unknown sister Chronic obstructive pulmonary disease Unk nown sister Dementia Unknown Advance Directives No Advanced Directives Records FoundNo Advanced Directives Records FoundNo Advanced Directives Records Found Chief Complaint and Reason for Visit Chief Complaint CAROTID STENOSIS EORDER Reason for Visit Carotid stenosis, ri ght Chief Complaint CAROTID STENOSIS EORDER Peripheral vascular disease, unspecified Reason for Visit Carotid stenosis, ri ght Additional Source Comments (unrecognized sect ion and content) No Status Records FoundNo Status Records FoundNo Status Records Found INFORMATION SOURCE (unrecogn ized section and content) DATE CREATED AUTHOR 08/19/2023 [facility] DATE CREATED AUTHOR AUTHOR'S ORGANIZ ATION 04/10/2025 [facility] DATE CREATED AUTHOR AUTHOR'S ORGANIZ ATION 04/20/2025 [facility] Care Teams (unrecognized sec tion and content) Team Status: Active Member Role Status Dates Dr. Cody Delaney MD Primary Care Provider Active Team Status: Inactive Member Role Status Dates Dr. Blake Gonzalez MD Attending Provider Active Team Status: Inactive Member Role Status Dates Dr. Cody Delaney MD Primary Care Provider Active Dr. Blake Gonzalez MD Attending Provider, Referring Pro vider Active Team Status: Active Member Role Status Dates Dr. Cody Delaney MD Primary Care Provider Active Dr. Blake Gonzalez MD Attending Provider Active Team Status: Inactive Member Role Status Dates Dr. Blake Gonzalez MD Attending Provider, Referring Pro vider Active Dr. Cody Delaney MD Primary Care Provider Active Goals (unrecognized section and content) Goals may be documented in a n alternate sectionGoals may be documented in an alternate section FOR RECORDS PERTAINING TO PATIENTS WHO ARE OR HAVE BEEN ENROLLED IN A CHEMICAL DEPENDENCY/SUBSTANCEABUSE PROGRAM, SOME INFORMATION MAY BE OMITTED. This clinical summary was aggregated from multiple sources. Caution should be exercised in using it in the provision of clinical care. This summary normalizes information from multiple sources, and as a consequence, information in this document may materially change the coding, format and clinical context of patient data. In addition, data may be omitted in some cases. CLINICAL DECISIONS SHOULD BE BASED ON THE PRIMARY CLINICAL RECORDS. [employer] provides no warranty or guarantee of the accuracy or completeness of information in this document.
--- OUTSIDE RECORDS SUMMARY | 2025-04-26 20:01 | XMS RPT_ITS | CCD ---
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 Blake Gonzalez Attending Provider Dr. Cody Delaney Primary Care Provider CODY DELANEY MD Attending Unavailable CODY DELANEY [...] Consulting Unavailable CODY DELANEY MD Attending Unavailable CODY DELANEY [...] Unavailable TOMEKA GOMES MD Admitting Unavailable TOMEKA GOEMS MD Primary Care Unavailable TOMEKA GOMES MD Attending Unavailable Cody Delaney Primary Care Unavailable Issac Maravilla Referring Unavailable Issac Maravilla Attending Unavailable Cody Delaney Primary Care Unavailable Reanna Diaz Referring Unavailable Reanna Diaz [facility] Unavailable Reanna Diaz Referring Unavailable Reanna Diaz Attending Unavailable [facility] Primary Care Unavailable Blake Gonzalez Attending Unavailable [...] te Episodic/Chronic Other aftercare (1 source) 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; Translations: [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] Onset: 07-31-2024 Episodic Other screening for suspected conditions (not mental disorders or infectious disease) (2 sources) Other specified abnormal findings of blood chemistry; Translations: [Encounter for screening for malignant neoplasm of prostate] Onset: 05-26-2024 Episodic Results Test Name Value Interpretation Reference Range Facility CBC + DIFFon 04-08-2025 Baso # 0.02 x10EE3/UL Normal 0.00 - 0.10 [facility] Comment on above: Performed By: #### 2 [id number] #### [place] [address] Basophils/100 WBC (Bld) 0.3 % Normal 0.0 - 2.0 [facility] Comment on above: Performed By: #### 2 79312 #### [place] [address] CBC + DIFF Normal [facility] Comment on above: Result Comment: CBC- COMPLETE BLOOD COUNT Performed By: #### 2 97846 #### [facility],[address] [place] [address] EO # 0.07 x10EE3/UL Normal 0.00 - 0.50 [facility] Comment on above: Performed By: #### 2 78671 #### [facility],[address] [place], [place] [address] Eosinophils/100 WBC (Bld) 1.2 % Normal 0.0 - 7.0 [facility] Comment on above: Performed By: #### 2 70967 #### [facility],[address] [place] [address] Erythrocyte distribution width (RBC) [Ratio] 13.5 % Normal 12.0 - 15.6 [facility] Comment on above: Performed By: #### 2 13789 #### [facility],[address] [place] [address] Hematocrit (Bld) [Volume fraction] 41.4 % Normal 40.0 - 52.0 [facility] Comment on above: Performed By: #### 2 51253 #### [facility],[address] [place], [place] [address] Hemoglobin (Bld) [Mass/Vol] 14.4 g/dL Normal 13.0 - 17.5 [facility] Comment on above: Performed By: #### 2 28392 #### [facility],[address] [place] [address] 55556 Lymph # 1.04 x10EE3/UL Normal 0.80 - 2.80 [facility] Comment on above: Performed By: #### 2 86889 #### [facility],[address] [place] [address] 53400 Lymphocytes/100 WBC (Bld) 16.9 % Low 20.0 - 45.0 [facility] Comment on above: Performed By: #### 2 41531 #### [facility],[address] [place] [address] 08786 MANUAL DIFF N/A Normal [facility] Comment on above: Performed By: #### 2 06514 #### [facility],[address] [place] [address] 35360 MCH (RBC) [Entitic mass] 35 pg High 27 - 33 [facility] Comment on above: Performed By: #### 2 22713 #### [facility],[address] [place] [address] 68373 MCHC 35 X10 3 Normal 32 - 36 [facility] Comment on above: Performed By: #### 2 72798 #### [facility],[address] [place] [address] 06003 MCV (RBC) [Entitic vol] 100 fL High 81 - 98 [facility] Comment on above: Performed By: #### 2 51978 #### [facility],[address] [place] [address] 55435 Dent # 0.66 x10EE3/UL Normal 0.20 - 1.00 [facility] Comment on above: Performed By: #### 2 24901 #### [facility],[address] [place] [address] 22311 MONOS % 10.8 % High 0.0 - 10.0 [facility] Comment on above: Performed By: #### 2 44681 #### [facility],[address] [place] [address] 98038 Morphology Yao (Bld) [Interp] N/A Normal [facility] Comment on above: Performed By: #### 2 65941 #### [facility],[address] [place] [address] 22961 Neut # 4.36 x10EE3/UL Normal 1.50 - 7.10 [facility] Comment on above: Performed By: #### 2 93904 #### [facility],[address] [place] [address] 79197 Neutrophils/100 WBC (Bld) 70.8 % Normal 46.0 - 76.0 [facility] Comment on above: Performed By: #### 2 79331 #### [facility],[address] [place] [address] 73851 PLATELET 186 x10EE3/UL Normal 150 - 450 [facility] Comment on above: Performed By: #### 2 22517 #### [facility],[address] [place] [address] 11124 Platelet mean volume (Bld) [Entitic vol] 9.1 fL Normal 6.4 - 10.5 [facility] Comment on above: Result Comment: AUTO MATED DIFFERENTIAL Performed By: #### 2 47187 #### [facility],[address] [place] [address] 33650 RBC 4.14 x 10EE6/UL Low 4.50 - 6.00 [facility] Comment on above: Performed By: #### 2 82395 #### [facility],[address] [place] [address] 34321 WBC 6.2 x 10EE3/UL Normal 4.5 - 10.8 [facility] Comment on above: Performed By: #### 2 00589 #### [facility],[address] [place] [address] 50864 CMP with eGFRon 04-08-2025 AGE 84 years Normal [facility] Comment on above: Performed By: #### 2 31008 #### [facility],[address] [place] [address] 67979 Albumin [Mass/Vol] 3.5 g/dL Normal 3.4 - 5.0 [facility] Comment on above: Performed By: #### 2 70120 #### [facility],[address] [place] [address] 16203 Albumin/Globulin [Mass ratio] 1.0 {ratio} Normal 0.9 - 1.6 [facility] Comment on above: Performed By: #### 2 40394 #### [facility],[address] [place] [address] 04977 ALK PHOS 118 U/L High 46 - 116 [facility] Comment on above: Performed By: #### 2 73219 #### [facility],[address] [place] [address] 99770 ALT [Catalytic activity/Vol] 42 U/L Normal 16 - 63 [facility] Comment on above: Performed By: #### 2 90626 #### [facility],[address] [place] [address] 78342 Anion gap [Moles/Vol] 11 mmol/L Normal 10 - 20 [facility] Comment on above: Performed By: #### 2 30630 #### [facility],[address] [place] [address] 96694 AST [Catalytic activity/Vol] 25 U/L Normal 15 - 37 [facility] Comment on above: Performed By: #### 2 30136 #### [facility],[address] [place] [address] 83203 B/C RATIO 30 ratio Normal 0 - 30 [facility] Comment on above: Performed By: #### 2 49669 #### [facility],[address] [place] [address] 44847 Bilirubin [Mass/Vol] 0.7 mg/dL Normal 0.2 - 1.0 [facility] Comment on above: Performed By: #### 2 52807 #### [facility],[address] [place] [address] 24845 Calcium [Mass/Vol] 9.1 mg/dL Normal 8.5 - 10.1 [facility] Comment on above: Performed By: #### 2 64887 #### [facility],[address] [place] [address] 85905 Chloride [Moles/Vol] 108 mmol/L High 98 - 107 [facility] Comment on above: Performed By: #### 2 61304 #### [facility],[address] [place] [address] 36388 CMP with eGFR Normal [facility] Comment on above: Result Comment: COMP REHENSIVE METABOLIC PANEL Performed By: #### 2 25203 #### [facility],[address] [place] [address] 65109 CO2 [Moles/Vol] 27.3 mmol/L Normal 21.0 - 32.0 [facility] Comment on above: Performed By: #### 2 72794 #### [facility],[address] [place] [address] 50517 Creatinine [Mass/Vol] 1.23 mg/dL Normal 0.70 - 1.30 [facility] Comment on above: Performed By: #### 2 99168 #### [facility],[address] [place] [address] 42503 eGFR 56 ML/MINUTE Low 60 - 999 [facility] Comment on above: Performed By: #### 2 36166 #### [facility],[address] [place] [address] 90148 GFR/1.73 sq M.predicted among non-blacks MDRD (S/P/Bld) [Vol rate/Area] mL/min/{1.73_m2} Normal 60 - 999 [facility] Comment on above: Result Comment: ACCO RDING TO THE NATIONAL KIDNEY DISEASE EDUCATION PROGRAM(NKDE), A NORMAL eGFR IS A VALUE GREATER THAN OR EQUAL TO 60 ML/MIN/1.73 SQ METERS. CHRONIC KIDNEY DISEASE: <60mL/MIN/1.73 SQ METERS KIDNEY FAILURE: <15mL/MIN/1.73 SQ METERS THIS TEST SHOULD ONLY BE USED FOR PATIENTS 18 YEARS OF AGE AND OLDER. Performed By: #### 2 91958 #### [facility],[address] [place] [address] 56291 Globulin (S) [Mass/Vol] 3.6 g/dL Normal 1.5 - 3.8 [facility] Comment on above: Performed By: #### 2 17032 #### [facility],[address] [place] [address] 65347 Glucose [Mass/Vol] 90 mg/dL Normal 74 - 106 [facility] Comment on above: Performed By: #### 2 87423 #### [facility],[address] [place] [address] Potassium [Moles/Vol] 4.6 mmol/L Normal 3.5 - 5.1 [facility] Comment on above: Performed By: #### 2 99570 #### [facility],[address] [place] [address] Protein [Mass/Vol] 7.1 g/dL Normal 6.4 - 8.2 [facility] Comment on above: Performed By: #### 2 68610 #### [place] [address] Sodium [Moles/Vol] 142 mmol/L Normal 136 - 145 [facility] Comment on above: Performed By: #### 2 51340 #### [place] [address] Urea nitrogen [Mass/Vol] 37 mg/dL High 7 - 18 [facility] Comment on above: Performed By: #### 2 67989 #### [place] [address] CBC + DIFFon 01-13-2025 Baso # 0.01 x10EE3/UL Normal 0.00 - 0.10 [facility] Comment on above: Performed By: #### 2 53502 #### [place] [id number] Basophils/100 WBC (Bld) 0.1 % Normal 0.0 - 2.0 [facility] Comment on above: Performed By: #### 2 75065 #### [place] [address] CBC + DIFF Normal [facility] Comment on above: Result Comment: CBC- COMPLETE BLOOD COUNT Performed By: #### 2 94606 #### [address] [address] EO # 0.03 x10EE3/UL Normal 0.00 - 0.50 [facility] Comment on above: Performed By: #### 2 36579 #### [facility],[address] [place] [address] 70228 Eosinophils/100 WBC (Bld) 0.5 % Normal 0.0 - 7.0 [facility] Comment on above: Performed By: #### 2 77438 #### [facility],[address] [place] [address] Erythrocyte distribution width (RBC) [Ratio] 13.1 % Normal 12.0 - 15.6 [facility] Comment on above: Performed By: #### 2 72287 #### [facility],[address] [place] [address] Hematocrit (Bld) [Volume fraction] 43.0 % Normal 40.0 - 52.0 [facility] Comment on above: Performed By: #### 2 17271 #### [facility],[address] [place] [address] Hemoglobin (Bld) [Mass/Vol] 14.5 g/dL Normal 13.0 - 17.5 [facility] Comment on above: Performed By: #### 2 33592 #### [facility],[address] [place] [address] 44811 Lymph # 0.87 x10EE3/UL Normal 0.80 - 2.80 [facility] Comment on above: Performed By: #### 2 10975 #### [facility],[address] [place] [address] 92896 Lymphocytes/100 WBC (Bld) 15.4 % Low 20.0 - 45.0 [facility] Comment on above: Performed By: #### 2 14528 #### [facility],[address] [place], [place] [address] MANUAL DIFF N/A Normal [facility] Comment on above: Performed By: #### 2 78595 #### [facility],[address] [place] [address] MCH (RBC) [Entitic mass] 35 pg High 27 - 33 [facility] Comment on above: Performed By: #### 2 06565 #### [facility],[address] [place] [address] MCHC 34 X10 3 Normal 32 - 36 [facility] Comment on above: Performed By: #### 2 52697 #### [facility],[address] [place], [place] [address] MCV (RBC) [Entitic vol] 103 fL High 81 - 98 [facility] Comment on above: Performed By: #### 2 69479 #### [facility],[address] [place] [address] Dent # 0.36 x10EE3/UL Normal 0.20 - 1.00 [facility] Comment on above: Performed By: #### 2 98287 #### [facility],[address] [place], [place] [address] MONOS % 6.3 % Normal 0.0 - 10.0 [facility] Comment on above: Performed By: #### 2 34955 #### [facility],[address] [place], [place] [address] Morphology Yao (Bld) [Interp] N/A Normal [facility] Comment on above: Performed By: #### 2 55516 #### [facility],[address] [place] [address] Neut # 4.41 x10EE3/UL Normal 1.50 - 7.10 [facility] Comment on above: Performed By: #### 2 55914 #### [facility],[address] [place] [address] Neutrophils/100 WBC (Bld) 77.7 % High 46.0 - 76.0 [facility] Comment on above: Performed By: #### 2 60188 #### [facility],[address] [place] [address] 67797 PLATELET 214 x10EE3/UL Normal 150 - 450 [facility] Comment on above: Performed By: #### 2 74684 #### [facility],[address] [place] [address] 01777 Platelet mean volume (Bld) [Entitic vol] 9.1 fL Normal 6.4 - 10.5 [facility] Comment on above: Result Comment: AUTO MATED DIFFERENTIAL Performed By: #### 2 63721 #### [facility],[address] [place] [address] 98269 RBC 4.19 x 10EE6/UL Low 4.50 - 6.00 [facility] Comment on above: Performed By: #### 2 21621 #### [facility],[address] [place] [address] 76218 WBC 5.7 x 10EE3/UL Normal 4.5 - 10.8 [facility] Comment on above: Performed By: #### 2 12897 #### [facility],[address] [place] [address] 99024 CMP with eGFRon 01-13-2025 AGE 84 years Normal [facility] Comment on above: Performed By: #### 2 91134 #### [facility],[address] [place] [address] 88505 Albumin [Mass/Vol] 3.6 g/dL Normal 3.4 - 5.0 [facility] Comment on above: Performed By: #### 2 67926 #### [facility],[address] [place] [address] 77886 Albumin/Globulin [Mass ratio] 1.0 {ratio} Normal 0.9 - 1.6 [facility] Comment on above: Performed By: #### 2 16485 #### [facility],[address] [place] [address] 59571 ALK PHOS 112 U/L Normal 46 - 116 [facility] Comment on above: Performed By: #### 2 00199 #### [facility],[address] [place] [address] 23548 ALT [Catalytic activity/Vol] 30 U/L Normal 16 - 63 [facility] Comment on above: Performed By: #### 2 52476 #### [facility],[address] [place] [address] 76606 Anion gap [Moles/Vol] 13 mmol/L Normal 10 - 20 [facility] Comment on above: Performed By: #### 2 32147 #### [facility],[address] [place] [address] 80582 AST [Catalytic activity/Vol] 22 U/L Normal 15 - 37 [facility] Comment on above: Performed By: #### 2 76078 #### [facility],[address] [place] [address] 46846 B/C RATIO 26 ratio Normal 0 - 30 [facility] Comment on above: Performed By: #### 2 32474 #### [facility],[address] [place] [address] 55317 Bilirubin [Mass/Vol] 0.7 mg/dL Normal 0.2 - 1.0 [facility] Comment on above: Performed By: #### 2 22366 #### [facility],[address] [place] [address] 51573 Calcium [Mass/Vol] 9.6 mg/dL Normal 8.5 - 10.1 [facility] Comment on above: Performed By: #### 2 71736 #### [facility],[address] [place] [address] 53028 Chloride [Moles/Vol] 107 mmol/L Normal 98 - 107 [facility] Comment on above: Performed By: #### 2 02568 #### [facility],[address] [place] [address] 49094 CMP with eGFR Normal [facility] Comment on above: Result Comment: COMP REHENSIVE METABOLIC PANEL Performed By: #### 2 69174 #### [facility],[address] [place] [address] 00873 CO2 [Moles/Vol] 27.8 mmol/L Normal 21.0 - 32.0 [facility] Comment on above: Performed By: #### 2 62842 #### [facility],[address] [place] [address] 19011 Creatinine [Mass/Vol] 1.09 mg/dL Normal 0.70 - 1.30 [facility] Comment on above: Performed By: #### 2 06851 #### [facility],[address] [place] [address] 72430 GFR/1.73 sq M.predicted among non-blacks MDRD (S/P/Bld) [Vol rate/Area] mL/min/{1.73_m2} Normal 60 - 999 [facility] Comment on above: Performed By: #### 2 75762 #### [facility],[address] [place] [address] Result Comment: ACCO RDING TO THE NATIONAL KIDNEY DISEASE EDUCATION PROGRAM(NKDE), A NORMAL eGFR IS A VALUE GREATER THAN OR EQUAL TO 60 ML/MIN/1.73 SQ METERS. CHRONIC KIDNEY DISEASE: <60mL/MIN/1.73 SQ METERS KIDNEY FAILURE: <15mL/MIN/1.73 SQ METERS THIS TEST SHOULD ONLY BE USED FOR PATIENTS 18 YEARS OF AGE AND OLDER. Globulin (S) [Mass/Vol] 3.5 g/dL Normal 1.5 - 3.8 [facility] Comment on above: Performed By: #### 2 03641 #### [facility],[address] [place] [address] 70135 Glucose [Mass/Vol] 151 mg/dL High 74 - 106 [facility] Comment on above: Performed By: #### 2 22319 #### [facility],[address] [place] [address] 35779 Potassium [Moles/Vol] 4.3 mmol/L Normal 3.5 - 5.1 [facility] Comment on above: Performed By: #### 2 07853 #### [address] [address] Protein [Mass/Vol] 7.1 g/dL Normal 6.4 - 8.2 [facility] Comment on above: Performed By: #### 2 87898 #### [address] [address] Sodium [Moles/Vol] 143 mmol/L Normal 136 - 145 [facility] Comment on above: Performed By: #### 2 51155 #### [address] [address] Urea nitrogen [Mass/Vol] 28 mg/dL High 7 - 18 [facility] Comment on above: Performed By: #### 2 05756 #### [address] [address] T4, FREE [CCL]on 12-18-2024 Free T4 [Mass/Vol] 1.2 ng/dL Normal 0.9-1.7 [facility] Comment on above: Result Comment: [facility] [address] [place] [address] Wojciech Fuentes III, M.D. [id number] Performed By: #### 2 76818 #### [address] [address] CBC + DIFFon 12-17-2024 Baso # 0.02 x10EE3/UL Normal 0.00 - 0.10 [facility] Comment on above: Performed By: #### 2 51037 #### [address] [address] Basophils/100 WBC (Bld) 0.3 % Normal 0.0 - 2.0 [facility] Comment on above: Performed By: #### 2 23554 #### [facility] [place] [address] 65341 CBC + DIFF Normal [facility] Comment on above: Result Comment: CBC- COMPLETE BLOOD COUNT Performed By: #### 2 23570 #### [facility],[address] [place] [address] 39469 EO # 0.02 x10EE3/UL Normal 0.00 - 0.50 [facility] Comment on above: Performed By: #### 2 81878 #### [facility],[address] [place] [address] 17322 Eosinophils/100 WBC (Bld) 0.3 % Normal 0.0 - 7.0 [facility] Comment on above: Performed By: #### 2 07622 #### [facility],[address] [place] [address] 13123 Erythrocyte distribution width (RBC) [Ratio] 12.7 % Normal 12.0 - 15.6 [facility] Comment on above: Performed By: #### 2 44866 #### [facility],[address] [place] [address] 46645 Hematocrit (Bld) [Volume fraction] 42.0 % Normal 40.0 - 52.0 [facility] Comment on above: Performed By: #### 2 78060 #### [facility],[address] [place] [address] 76351 Hemoglobin (Bld) [Mass/Vol] 13.9 g/dL Normal 13.0 - 17.5 [facility] Comment on above: Performed By: #### 2 26225 #### [facility],[address] [place] [address] 63977 Lymph # 0.98 x10EE3/UL Normal 0.80 - 2.80 [facility] Comment on above: Performed By: #### 2 43074 #### [facility],[address] [place] [address] 56905 Lymphocytes/100 WBC (Bld) 16.9 % Low 20.0 - 45.0 [facility] Comment on above: Performed By: #### 2 03367 #### [facility],[address] [place] [address] 52113 MANUAL DIFF N/A Normal [facility] Comment on above: Performed By: #### 2 90849 #### [facility],[address] [place] [address] MCH (RBC) [Entitic mass] 34 pg High 27 - 33 [facility] Comment on above: Performed By: #### 2 20415 #### [facility],[address] [place] [address] MCHC 33 X10 3 Normal 32 - 36 [facility] Comment on above: Performed By: #### 2 31161 #### [facility],[address] [place] [address] MCV (RBC) [Entitic vol] 102 fL High 81 - 98 [facility] Comment on above: Performed By: #### 2 33282 #### [facility],[address] [place] [address] Dent # 0.65 x10EE3/UL Normal 0.20 - 1.00 [facility] Comment on above: Performed By: #### 2 45763 #### [facility],[address] [place] [address] 90059 MONOS % 11.3 % High 0.0 - 10.0 [facility] Comment on above: Performed By: #### 2 37249 #### [facility],[address] [place], [place] [address] Morphology Yao (Bld) [Interp] N/A Normal [facility] Comment on above: Performed By: #### 2 58791 #### [facility],[address] [place] [address] 66528 Neut # 4.10 x10EE3/UL Normal 1.50 - 7.10 [facility] Comment on above: Performed By: #### 2 05774 #### [facility],[address] [place] [address] 62323 Neutrophils/100 WBC (Bld) 71.1 % Normal 46.0 - 76.0 [facility] Comment on above: Performed By: #### 2 07032 #### [facility],[address] [place] [address] 01580 PLATELET 190 x10EE3/UL Normal 150 - 450 [facility] Comment on above: Performed By: #### 2 33909 #### [facility],[address] [place] [address] 09961 Platelet mean volume (Bld) [Entitic vol] 8.7 fL Normal 6.4 - 10.5 [facility] Comment on above: Result Comment: AUTO MATED DIFFERENTIAL Performed By: #### 2 20732 #### [facility],[address] [place] [address] 16319 RBC 4.12 x 10EE6/UL Low 4.50 - 6.00 [facility] Comment on above: Performed By: #### 2 02050 #### [facility],[address] [place] [address] 78944 WBC 5.8 x 10EE3/UL Normal 4.5 - 10.8 [facility] Comment on above: Performed By: #### 2 17023 #### [facility],[address] [place] [address] 61461 CMP with eGFRon 12-17-2024 AGE 84 years Normal [facility] Comment on above: Performed By: #### 2 23238 #### [facility],[address] [place] [address] 40617 Albumin [Mass/Vol] 3.5 g/dL Normal 3.4 - 5.0 [facility] Comment on above: Performed By: #### 2 59945 #### [facility],[address] [place] [address] 47865 Albumin/Globulin [Mass ratio] 1.0 {ratio} Normal 0.9 - 1.6 [facility] Comment on above: Performed By: #### 2 07709 #### [facility],[address] [place] [address] 42201 ALK PHOS 117 U/L High 46 - 116 [facility] Comment on above: Performed By: #### 2 16123 #### [facility],[address] [place] [address] 91129 ALT [Catalytic activity/Vol] 28 U/L Normal 16 - 63 [facility] Comment on above: Performed By: #### 2 75016 #### [facility],[address] [place] [address] 69484 Anion gap [Moles/Vol] 11 mmol/L Normal 10 - 20 [facility] Comment on above: Performed By: #### 2 57291 #### [facility],[address] [place] [address] 09680 AST [Catalytic activity/Vol] 17 U/L Normal 15 - 37 [facility] Comment on above: Performed By: #### 2 52065 #### [facility],[address] [place] [address] 37893 B/C RATIO 22 ratio Normal 0 - 30 [facility] Comment on above: Performed By: #### 2 78715 #### [facility],[address] [place] [address] 66806 Bilirubin [Mass/Vol] 0.7 mg/dL Normal 0.2 - 1.0 [facility] Comment on above: Performed By: #### 2 73454 #### [facility],[address] [place] [address] 23785 Calcium [Mass/Vol] 9.0 mg/dL Normal 8.5 - 10.1 [facility] Comment on above: Performed By: #### 2 51574 #### [facility],[address] [place] [address] 75231 Chloride [Moles/Vol] 106 mmol/L Normal 98 - 107 [facility] Comment on above: Performed By: #### 2 53670 #### [facility],[address] [place] [address] 03412 CMP with eGFR Normal [facility] Comment on above: Result Comment: COMP REHENSIVE METABOLIC PANEL Performed By: #### 2 69636 #### [facility],[address] [place], [place] [address] CO2 [Moles/Vol] 28.8 mmol/L Normal 21.0 - 32.0 [facility] Comment on above: Performed By: #### 2 91062 #### [facility],[address] [place] [address] Creatinine [Mass/Vol] 1.05 mg/dL Normal 0.70 - 1.30 [facility] Comment on above: Performed By: #### 2 80376 #### [place] [address] GFR/1.73 sq M.predicted among non-blacks MDRD (S/P/Bld) [Vol rate/Area] mL/min/{1.73_m2} Normal 60 - 999 [facility] Comment on above: Performed By: #### 2 08480 #### [facility],[address] [place] [address] Result Comment: ACCO RDING TO THE NATIONAL KIDNEY DISEASE EDUCATION PROGRAM(NKDE), A NORMAL eGFR IS A VALUE GREATER THAN OR EQUAL TO 60 ML/MIN/1.73 SQ METERS. CHRONIC KIDNEY DISEASE: <60mL/MIN/1.73 SQ METERS KIDNEY FAILURE: <15mL/MIN/1.73 SQ METERS THIS TEST SHOULD ONLY BE USED FOR PATIENTS 18 YEARS OF AGE AND OLDER. Globulin (S) [Mass/Vol] 3.4 g/dL Normal 1.5 - 3.8 [facility] Comment on above: Performed By: #### 2 57282 #### [facility],[address] [place], [place] [address] Glucose [Mass/Vol] 93 mg/dL Normal 74 - 106 [facility] Comment on above: Performed By: #### 2 43264 #### [facility],[address] [place] [address] 68308 Potassium [Moles/Vol] 4.3 mmol/L Normal 3.5 - 5.1 [facility] Comment on above: Performed By: #### 2 31994 #### [facility],[address] [place] [address] 38106 Protein [Mass/Vol] 6.9 g/dL Normal 6.4 - 8.2 [facility] Comment on above: Performed By: #### 2 03533 #### [facility],[address] [place] [address] 86005 Sodium [Moles/Vol] 141 mmol/L Normal 136 - 145 [facility] Comment on above: Performed By: #### 2 59075 #### [facility],[address] [place] [address] 83608 Urea nitrogen [Mass/Vol] 23 mg/dL High 7 - 18 [facility] Comment on above: Performed By: #### 2 43886 #### [facility],[address] [place] [address] 58116 LIPID PROFILEon 12-17-2024 Cholesterol [Mass/Vol] 158 mg/dL Normal 0 - 240 [facility] Comment on above: Performed By: #### 2 72387 #### [facility],[address] [place] [address] 18066 Cholesterol in HDL [Mass/Vol] 72 mg/dL High 40 - 60 [facility] Comment on above: Performed By: #### 2 88863 #### [facility],[address] [place] [address] 14507 Cholesterol in LDL [Mass/Vol] 81 mg/dL Normal 0 - 129 [facility] Comment on above: Performed By: #### 2 23951 #### [facility],[address] [place] [address] Cholesterol.total/Beatrice sterol in HDL [Mass ratio] 2.2 {ratio} Normal 0.0 - 5.0 [facility] Comment on above: Performed By: #### 2 04907 #### [facility],[address] [place] [address] 24953 Lipid 1996 panel Normal [facility] Comment on above: Result Comment: LIPI D PROFILE Performed By: #### 2 89353 #### [facility],[address] [place] [address] 71343 Triglyceride [Mass/Vol] 27 mg/dL Normal 0 - 150 [facility] Comment on above: Performed By: #### 2 18510 #### [facility],[address] [place] [address] 27857 TSHon 12-17-2024 TSH Qn 3.05 m[IU]/L Normal 0.35 - 3.74 [facility] Comment on above: Performed By: #### 2 66228 #### [facility],[address] [place] [address] 86373 Carotid Duplex Ultrasoundon 10-28-2024 Carotid Duplex Ultrasound [facility] [address] [place] [address] Carotid Duplex Ultrasound 10/28/24 1300 MR#: [id number] Acct: [id number] Name: SABIHA WEBBER Rep #: [id number] : 1940 83 From: Blake Gonzalez MD [...] in left vertebral artery. Procedure Carotid Duplex 98477. This is a Carotid Duplex examination using [...] Date Dictated: 10/28/24 1300 Date Transcribed: 10/29/24940 [employer] Specialist: Signed Normal [facility] CBC + DIFFon 10-16-2024 Baso # 0.03 x10EE3/UL Normal 0.00 - 0.10 [facility] Comment on above: Performed By: #### 2 27281 #### [facility],[address] [place] [address] Basophils/100 WBC (Bld) 0.3 % Normal 0.0 - 2.0 [facility] Comment on above: Performed By: #### 2 28781 #### [place] [address] CBC + DIFF Normal [facility] Comment on above: Result Comment: CBC- COMPLETE BLOOD COUNT Performed By: #### 2 89832 #### [place] [address] EO # 0.06 x10EE3/UL Normal 0.00 - 0.50 [facility] Comment on above: Performed By: #### 2 67812 #### [facility],[address] [place] [address] Eosinophils/100 WBC (Bld) 0.6 % Normal 0.0 - 7.0 [facility] Comment on above: Performed By: #### 2 92464 #### [place] [address] Erythrocyte distribution width (RBC) [Ratio] 13.6 % Normal 12.0 - 15.6 [facility] Comment on above: Performed By: #### 2 50169 #### [place] [address] Hematocrit (Bld) [Volume fraction] 42.4 % Normal 40.0 - 52.0 [facility] Comment on above: Performed By: #### 2 43258 #### [facility],[address] [place] [address] 82221 Hemoglobin (Bld) [Mass/Vol] 14.1 g/dL Normal 13.0 - 17.5 [facility] Comment on above: Performed By: #### 2 33691 #### [facility],[address] [place], [place] [address] Lymph # 0.70 x10EE3/UL Low 0.80 - 2.80 [facility] Comment on above: Performed By: #### 2 62558 #### [facility],[address] [place], [place] [address] Lymphocytes/100 WBC (Bld) 6.7 % Low 20.0 - 45.0 [facility] Comment on above: Performed By: #### 2 73171 #### [facility],[address] [place] [address] 48960 MANUAL DIFF N/A Normal [facility] Comment on above: Performed By: #### 2 76905 #### [facility],[address] [place] [address] 87863 MCH (RBC) [Entitic mass] 34 pg High 27 - 33 [facility] Comment on above: Performed By: #### 2 38244 #### [facility],[address] [place] [address] 86593 MCHC 33 X10 3 Normal 32 - 36 [facility] Comment on above: Performed By: #### 2 64956 #### [facility],[address] [place] [address] 58758 MCV (RBC) [Entitic vol] 104 fL High 81 - 98 [facility] Comment on above: Performed By: #### 2 44438 #### [facility],[address] [place] [address] 38185 Dent # 1.04 x10EE3/UL High 0.20 - 1.00 [facility] Comment on above: Performed By: #### 2 13995 #### [facility],[address] [place] [address] 43291 MONOS % 10.1 % High 0.0 - 10.0 [facility] Comment on above: Performed By: #### 2 27198 #### [facility],[address] [place] [address] Morphology Yao (Bld) [Interp] N/A Normal [facility] Comment on above: Performed By: #### 2 07544 #### [facility],[address] [place] [address] Neut # 8.55 x10EE3/UL High 1.50 - 7.10 [facility] Comment on above: Performed By: #### 2 20500 #### [facility],[address] [place], [place] [address] Neutrophils/100 WBC (Bld) 82.4 % High 46.0 - 76.0 [facility] Comment on above: Performed By: #### 2 40214 #### [facility],[address] [place] [address] 09323 PLATELET 194 x10EE3/UL Normal 150 - 450 [facility] Comment on above: Performed By: #### 2 49307 #### [facility],[address] [place] [address] 19478 Platelet mean volume (Bld) [Entitic vol] 9.5 fL Normal 6.4 - 10.5 [facility] Comment on above: Result Comment: AUTO MATED DIFFERENTIAL Performed By: #### 2 09078 #### [facility],[address] [place] [address] 17699 RBC 4.10 x 10EE6/UL Low 4.50 - 6.00 [facility] Comment on above: Performed By: #### 2 57804 #### [facility],[address] [place] [address] 78176 WBC 10.4 x 10EE3/UL Normal 4.5 - 10.8 [facility] Comment on above: Performed By: #### 2 49295 #### [facility],[address] [place] [address] 80863 CMP with eGFRon 10-16-2024 AGE 83 years Normal [facility] Comment on above: Performed By: #### 2 31280 #### [facility],[address] [place] [address] 43711 Albumin [Mass/Vol] 3.3 g/dL Low 3.4 - 5.0 [facility] Comment on above: Performed By: #### 2 53961 #### [facility],[address] [place], [place] [address] Albumin/Globulin [Mass ratio] 1.0 {ratio} Normal 0.9 - 1.6 [facility] Comment on above: Performed By: #### 2 59017 #### [facility],[address] [place] [address] 96894 ALK PHOS 100 U/L Normal 46 - 116 [facility] Comment on above: Performed By: #### 2 89899 #### [facility],[address] [place] [address] 57284 ALT [Catalytic activity/Vol] 36 U/L Normal 16 - 63 [facility] Comment on above: Performed By: #### 2 87150 #### [facility],[address] [place] [address] 40263 Anion gap [Moles/Vol] 7 mmol/L Low 10 - 20 [facility] Comment on above: Performed By: #### 2 41026 #### [facility],[address] [place] [address] 87164 AST [Catalytic activity/Vol] 21 U/L Normal 15 - 37 [facility] Comment on above: Performed By: #### 2 65968 #### [facility],[address] [place] [address] 04356 B/C RATIO 23 ratio Normal 0 - 30 [facility] Comment on above: Performed By: #### 2 90541 #### [facility],[address] [place] [address] 63269 Bilirubin [Mass/Vol] 0.6 mg/dL Normal 0.2 - 1.0 [facility] Comment on above: Performed By: #### 2 35569 #### [facility],[address] [place] [address] 18116 Calcium [Mass/Vol] 9.0 mg/dL Normal 8.5 - 10.1 [facility] Comment on above: Performed By: #### 2 97885 #### [facility],[address] [place] [address] 68714 Chloride [Moles/Vol] 107 mmol/L Normal 98 - 107 [facility] Comment on above: Performed By: #### 2 21445 #### [facility],[address] [place] [address] 44336 CMP with eGFR Normal [facility] Comment on above: Result Comment: COMP REHENSIVE METABOLIC PANEL Performed By: #### 2 95640 #### [facility],[address] [place] [address] 32582 CO2 [Moles/Vol] 30.8 mmol/L Normal 21.0 - 32.0 [facility] Comment on above: Performed By: #### 2 67581 #### [facility],[address] [place] [address] 19303 Creatinine [Mass/Vol] 1.11 mg/dL Normal 0.70 - 1.30 [facility] Comment on above: Performed By: #### 2 45990 #### [facility],[address] [place] [address] 20007 GFR/1.73 sq M.predicted among non-blacks MDRD (S/P/Bld) [Vol rate/Area] mL/min/{1.73_m2} Normal 60 - 999 [facility] Comment on above: Performed By: #### 2 78878 #### [facility],[address] [place] [address] 13713 Result Comment: ACCO RDING TO THE NATIONAL KIDNEY DISEASE EDUCATION PROGRAM(NKDE), A NORMAL eGFR IS A VALUE GREATER THAN OR EQUAL TO 60 ML/MIN/1.73 SQ METERS. CHRONIC KIDNEY DISEASE: <60mL/MIN/1.73 SQ METERS KIDNEY FAILURE: <15mL/MIN/1.73 SQ METERS THIS TEST SHOULD ONLY BE USED FOR PATIENTS 18 YEARS OF AGE AND OLDER. Globulin (S) [Mass/Vol] 3.3 g/dL Normal 1.5 - 3.8 [facility] Comment on above: Performed By: #### 2 63199 #### [facility],[address] [place] [address] 63063 Glucose [Mass/Vol] 86 mg/dL Normal 74 - 106 [facility] Comment on above: Performed By: #### 2 21203 #### [facility],[address] [place] [address] 81718 Potassium [Moles/Vol] 4.1 mmol/L Normal 3.5 - 5.1 [facility] Comment on above: Performed By: #### 2 41775 #### [facility],[address] [place] [address] 37639 Protein [Mass/Vol] 6.6 g/dL Normal 6.4 - 8.2 [facility] Comment on above: Performed By: #### 2 91276 #### [facility],[address] [place] [address] 57171 Sodium [Moles/Vol] 141 mmol/L Normal 136 - 145 [facility] Comment on above: Performed By: #### 2 30306 #### [facility],[address] [place] [address] 45360 Urea nitrogen [Mass/Vol] 25 mg/dL High 7 - 18 [facility] Comment on above: Performed By: #### 2 61221 #### [facility],[address] [place] [address] 93966 ED MED ADMINISTRATION DETAIL on 09-06-2024 ED MED ADMINISTRATION DETAIL Can Dryer Medication Administration Record [address] [address] [id number] 09/06/2024 Patient: SABIHA WEBBER Sex: Male : [...] [place] Edwards R.N. 1 of 1 Normal [facility] ED NURSES CLINICAL NOTEon ED NURSES CLINICAL NOTE Nurse Narrative Nurse Clinical Narrative [address] [address] [id number] 09/06/2024 Patient: SABIHA WEBBER Sex: Male : [...] Melendez R.N. 09/06/24 17:10:38 EST) Generated by [facility] 3 of 3 Normal [facility] ED ORDER SHEET (CPOE ONLY)on 09-06-2024 ED ORDER SHEET (CPOE ONLY) Order Sheet Order Sheet [address] [address] [id number] 09/06/2024 Patient: SABIHA WEBBER Sex: Male : [...] (09/06/2024 16:04 EST)] 2 of 2 Normal [facility] ED PHYSICIAN CLINICAL REPORT on 09-06-2024 ED PHYSICIAN CLINICAL REPORT Narrative Physician Clinical Narrative [address] [address] [id number] 09/06/2024 Patient: SABIHA WEBBER Sex: Male : [...] Leblanc D.O. 09/06/24 16:04:18 EST) Generated by [facility] 3 of 3 Normal [facility] ED [facility] BILL 09-06-2024 ED [place] [id number] [facility] [place] [address] [id number] 09/06/2024 Patient: SABIHA WEBBER Sex: Male : 1940 Age: 83y Item Professional Category Description Facility Code Code Quantity Fee Total Nurse/E/M EMERGENCY 188697 1 $0.00 $0.00 DEPARTMENT VISIT MODERATE SEVERITY (97042-13) Grand Total $0.00 Providers Luis Leblanc D.O. [...] knee, initial encounter 2 of 2 Normal [facility] ED VISIT SUMMARYon ED VISIT SUMMARY Visit Overview Visit Overview [address] [place] [address] [id number] 09/06/2024 Patient: SABIHA WEBBER Sex: Male : [...] LEVEL BY STUMBLING 3 of 3 Normal [facility] ED VITALS FLOW SHEETon 09-06 ED VITALS FLOW SHEET Vitals Vital Sign Flow Sheet [address] [address] [id number] 09/06/2024 Patient: SABIHA WEBBER Sex: Male : 1940 Age: 83y Measurements Wt: 72.6 kg Measured Time BP MAP HR RR O2Sat ETCO2 Temp Pain GCS RTS 16:57 09/06/2024 124/79 94 72 16 96% 98.0 F 1 14:10 09/06/2024 143/81 102 87 18 95% 98.9 F 6 1 of 1 Normal [facility] FEMUR RT 2+ VIEWSon 09-06-20 24 FEMUR RT 2+ VIEWS [address] [address] Patient: SABIHA WEBBER Alexandra Phone#: : 1940 Age: 83 Gender: M Pt. Type: ER Account: [id number] Location: [facility] Ordering: LUIS LEBLANC Exam Date: 09/06/2024/14:47 Family Phys: CODY BREWSTERF Charge Code: [id number] Physician: Burke Order #: [id number] Dose#: PROCEDURE: X-RAY FEMUR RT MIN 2 [...] Zambrano MD on 09/06/2024 at 22:03 Normal [facility] KNEE COMPLETE RT MIN 4 VIEWS on 09-06-2024 KNEE COMPLETE RT MIN 4 VIEWS [place] [address] Patient: SABIHA WEBBER Phone#: : 1940 Age: 83 Gender: M Pt. Type: ER Account: [id number] Location: [facility] Ordering: LUIS LEBLANC Exam Date: 09/06/2024/14:38 Family Phys: CODY DELANEY Charge Code: [id number] Physician: Burke Order #: [id number] Dose#: PROCEDURE: X-RAY KNEE RT COMPLETE 4 VIEWS COMPARISON: None. INDICATIONS: Pain. FINDINGS: BONES: Normal. No significant arthropathy or acute abnormality. SOFT TISSUES: Negative. No visible soft tissue swelling. EFFUSION: None visible. OTHER: Negative. CONCLUSION: No acute disease. Dictated by: Luly Zambrano MD on 09/06/2024 at 22:01 Approved by: Luly Zambrano MD on 09/06/2024 at 22:01 Normal [facility] [facility] DIFFon 07-31-2024 Baso # 0.02 x10EE3/UL Normal 0.00 - 0.10 [facility] Comment on above: Performed By: #### 2 63225 #### [facility],[address],[place] [address] Basophils/100 WBC (Bld) 0.3 % Normal 0.0 - 2.0 [facility] Comment on above: Performed By: #### 2 52489 #### [facility],[address] [place] [address] CBC + DIFF Normal [facility] Comment on above: Result Comment: CBC- COMPLETE BLOOD COUNT Performed By: #### 2 38251 #### [facility],[address] [place] [address] EO # 0.03 x10EE3/UL Normal 0.00 - 0.50 [facility] Comment on above: Performed By: #### 2 44900 #### [facility],[address] [place] [address] Eosinophils/100 WBC (Bld) 0.5 % Normal 0.0 - 7.0 [facility] Comment on above: Performed By: #### 2 44555 #### [facility],[address] [place] [address] Erythrocyte distribution width (RBC) [Ratio] 13.6 % Normal 12.0 - 15.6 [facility] Comment on above: Performed By: #### 2 12459 #### [facility],[address] [place] [address] Hematocrit (Bld) [Volume fraction] 43.5 % Normal 40.0 - 52.0 [facility] Comment on above: Performed By: #### 2 42030 #### [facility],[address] [place] [address] Hemoglobin (Bld) [Mass/Vol] 14.7 g/dL Normal 13.0 - 17.5 [facility] Comment on above: Performed By: #### 2 98482 #### [facility],[address] [place], [place] [address] Lymph # 0.99 x10EE3/UL Normal 0.80 - 2.80 [facility] Comment on above: Performed By: #### 2 58903 #### [facility],[address] [place], [place] [address] Lymphocytes/100 WBC (Bld) 13.4 % Low 20.0 - 45.0 [facility] Comment on above: Performed By: #### 2 35763 #### [facility],[address] [place] [address] MANUAL DIFF N/A Normal [facility] Comment on above: Performed By: #### 2 12755 #### [facility],[address] [place] [address] MCH (RBC) [Entitic mass] 34 pg High 27 - 33 [facility] Comment on above: Performed By: #### 2 64606 #### [facility],[address] [place] [address] MCHC 34 X10 3 Normal 32 - 36 [facility] Comment on above: Performed By: #### 2 20035 #### [facility],[address] [place], [place] [address] MCV (RBC) [Entitic vol] 100 fL High 81 - 98 [facility] Comment on above: Performed By: #### 2 48090 #### [facility],[address] [place] [address] Dent # 0.60 x10EE3/UL Normal 0.20 - 1.00 [facility] Comment on above: Performed By: #### 2 65640 #### [facility],[address] [place], [place] [address] MONOS % 8.0 % Normal 0.0 - 10.0 [facility] Comment on above: Performed By: #### 2 45230 #### [facility],[address] [place] [address] 07959 Morphology Yao (Bld) [Interp] N/A Normal [facility] Comment on above: Performed By: #### 2 92090 #### [facility],[address] [place] [address] 44153 Neut # 5.79 x10EE3/UL Normal 1.50 - 7.10 [facility] Comment on above: Performed By: #### 2 41192 #### [facility],[address] [place] [address] 88196 Neutrophils/100 WBC (Bld) 77.9 % High 46.0 - 76.0 [facility] Comment on above: Performed By: #### 2 14383 #### [facility],[address] [place] [address] 55687 PLATELET 198 x10EE3/UL Normal 150 - 450 [facility] Comment on above: Performed By: #### 2 91978 #### [facility],[address] [place] [address] 18345 Platelet mean volume (Bld) [Entitic vol] 8.8 fL Normal 6.4 - 10.5 [facility] Comment on above: Result Comment: AUTO MATED DIFFERENTIAL Performed By: #### 2 16342 #### [facility],[address] [place] [address] 81188 RBC 4.33 x 10EE6/UL Low 4.50 - 6.00 [facility] Comment on above: Performed By: #### 2 05723 #### [facility],[address] [place] [address] 73959 WBC 7.4 x 10EE3/UL Normal 4.5 - 10.8 [facility] Comment on above: Performed By: #### 2 24300 #### [facility],[address] [place] [address] 25099 CMP with eGFRon 07-31-2024 AGE 83 years Normal [facility] Comment on above: Performed By: #### 2 93569 #### [facility],[address] [place] [address] 10773 Albumin [Mass/Vol] 3.7 g/dL Normal 3.4 - 5.0 [facility] Comment on above: Performed By: #### 2 30209 #### [facility],[address] [place] [address] 59852 Albumin/Globulin [Mass ratio] 1.0 {ratio} Normal 0.9 - 1.6 [facility] Comment on above: Performed By: #### 2 37178 #### [facility],[address] [place] [address] 99594 ALK PHOS 109 U/L Normal 46 - 116 [facility] Comment on above: Performed By: #### 2 57740 #### [facility],[address] [place] [address] 06794 ALT [Catalytic activity/Vol] 25 U/L Normal 16 - 63 [facility] Comment on above: Performed By: #### 2 33362 #### [facility],[address] [place] [address] 16523 Anion gap [Moles/Vol] 12 mmol/L Normal 10 - 20 [facility] Comment on above: Performed By: #### 2 02938 #### [facility],[address] [place] [address] 59443 AST [Catalytic activity/Vol] 23 U/L Normal 15 - 37 [facility] Comment on above: Performed By: #### 2 97089 #### [facility],[address] [place] [address] 17632 B/C RATIO 22 ratio Normal 0 - 30 [facility] Comment on above: Performed By: #### 2 78796 #### [facility],[address] [place] [address] 97525 Bilirubin [Mass/Vol] 0.7 mg/dL Normal 0.2 - 1.0 [facility] Comment on above: Performed By: #### 2 82934 #### [facility],[address] [place] [address] 14887 Calcium [Mass/Vol] 9.7 mg/dL Normal 8.5 - 10.1 [facility] Comment on above: Performed By: #### 2 83048 #### [facility],[address] [place] [address] 09771 Chloride [Moles/Vol] 105 mmol/L Normal 98 - 107 [facility] Comment on above: Performed By: #### 2 61253 #### [facility],[address] [place] [address] 68565 CMP with eGFR Normal [facility] Comment on above: Result Comment: COMP REHENSIVE METABOLIC PANEL Performed By: #### 2 06503 #### [facility],[address] [place] [address] 03667 CO2 [Moles/Vol] 29.1 mmol/L Normal 21.0 - 32.0 [facility] Comment on above: Performed By: #### 2 17521 #### [facility],[address] [place] [address] 87417 Creatinine [Mass/Vol] 1.22 mg/dL Normal 0.70 - 1.30 [facility] Comment on above: Performed By: #### 2 48945 #### [facility],[address] [place] [address] 56644 eGFR 57 ML/MINUTE Low 60 - 999 [facility] Comment on above: Performed By: #### 2 52695 #### [facility],[address] [place] [address] 67622 GFR/1.73 sq M.predicted among non-blacks MDRD (S/P/Bld) [Vol rate/Area] mL/min/{1.73_m2} Normal 60 - 999 [facility] Comment on above: Result Comment: ACCO RDING TO THE NATIONAL KIDNEY DISEASE EDUCATION PROGRAM(NKDE), A NORMAL eGFR IS A VALUE GREATER THAN OR EQUAL TO 60 ML/MIN/1.73 SQ METERS. CHRONIC KIDNEY DISEASE: <60mL/MIN/1.73 SQ METERS KIDNEY FAILURE: <15mL/MIN/1.73 SQ METERS THIS TEST SHOULD ONLY BE USED FOR PATIENTS 18 YEARS OF AGE AND OLDER. Performed By: #### 2 20010 #### [facility],[address] [place] [address] 36266 Globulin (S) [Mass/Vol] 3.7 g/dL Normal 1.5 - 3.8 [facility] Comment on above: Performed By: #### 2 34394 #### [facility],[address] [place] [address] 09422 Glucose [Mass/Vol] 97 mg/dL Normal 74 - 106 [facility] Comment on above: Performed By: #### 2 18351 #### [facility],[address] [place] [address] 17260 Potassium [Moles/Vol] 4.9 mmol/L Normal 3.5 - 5.1 [facility] Comment on above: Performed By: #### 2 66535 #### [facility],[address] [place] [address] 40381 Protein [Mass/Vol] 7.4 g/dL Normal 6.4 - 8.2 [facility] Comment on above: Performed By: #### 2 32167 #### [facility],[address] [place] [address] 13516 Sodium [Moles/Vol] 141 mmol/L Normal 136 - 145 [facility] Comment on above: Performed By: #### 2 06014 #### [facility],[address] [place] [address] 11681 Urea nitrogen [Mass/Vol] 27 mg/dL High 7 - 18 [facility] Comment on above: Performed By: #### 2 32822 #### [facility],[address] [place] [address] 73575 CBC + DIFFon 05-07-2024 Baso # 0.02 x10EE3/UL Normal 0.00 - 0.10 [facility] Comment on above: Performed By: #### 2 50961 #### [facility],[address] [place] [address] 28173 Basophils/100 WBC (Bld) 0.3 % Normal 0.0 - 2.0 [facility] Comment on above: Performed By: #### 2 83904 #### [facility],[address] [place] [address] CBC + DIFF Normal [facility] Comment on above: Result Comment: CBC- COMPLETE BLOOD COUNT Performed By: #### 2 36198 #### [facility],[address] [place] [address] EO # 0.05 x10EE3/UL Normal 0.00 - 0.50 [facility] Comment on above: Performed By: #### 2 57055 #### [facility],[address] [place] [address] Eosinophils/100 WBC (Bld) 0.9 % Normal 0.0 - 7.0 [facility] Comment on above: Performed By: #### 2 84370 #### [facility],[address] [place] [address] Erythrocyte distribution width (RBC) [Ratio] 13.4 % Normal 12.0 - 15.6 [facility] Comment on above: Performed By: #### 2 98527 #### [facility],[address] [place] [address] Hematocrit (Bld) [Volume fraction] 40.2 % Normal 40.0 - 52.0 [facility] Comment on above: Performed By: #### 2 96624 #### [facility],[address] [place] [address] Hemoglobin (Bld) [Mass/Vol] 13.6 g/dL Normal 13.0 - 17.5 [facility] Comment on above: Performed By: #### 2 58894 #### [facility],[address] [place] [address] Lymph # 0.82 x10EE3/UL Normal 0.80 - 2.80 [facility] Comment on above: Performed By: #### 2 40449 #### [facility],[address] [place], [place] [address] Lymphocytes/100 WBC (Bld) 13.3 % Low 20.0 - 45.0 [facility] Comment on above: Performed By: #### 2 64741 #### [facility],[address] [place] [address] MANUAL DIFF N/A Normal [facility] Comment on above: Performed By: #### 2 67254 #### [facility],[address] [place] [address] MCH (RBC) [Entitic mass] 34 pg High 27 - 33 [facility] Comment on above: Performed By: #### 2 45436 #### [facility],[address] [place] [address] MCHC 34 X10 3 Normal 32 - 36 [facility] Comment on above: Performed By: #### 2 75209 #### [facility],[address] [place] [address] MCV (RBC) [Entitic vol] 99 fL High 81 - 98 [facility] Comment on above: Performed By: #### 2 83828 #### [facility],[address] [place] [address] Dent # 0.64 x10EE3/UL Normal 0.20 - 1.00 [facility] Comment on above: Performed By: #### 2 32410 #### [facility],[address] [place] [address] MONOS % 10.5 % High 0.0 - 10.0 [facility] Comment on above: Performed By: #### 2 83991 #### [facility],[address] [place], [place] [address] Morphology Yao (Bld) [Interp] N/A Normal [facility] Comment on above: Performed By: #### 2 89530 #### [facility],[address],[place] [address] Neut # 4.61 x10EE3/UL Normal 1.50 - 7.10 [facility] Comment on above: Performed By: #### 2 00833 #### [facility],[address] [place] [address] 38553 Neutrophils/100 WBC (Bld) 75.0 % Normal 46.0 - 76.0 [facility] Comment on above: Performed By: #### 2 99853 #### [facility],[address] [place] [address] 30018 PLATELET 184 x10EE3/UL Normal 150 - 450 [facility] Comment on above: Performed By: #### 2 34412 #### [facility],[address] [place] [address] 34225 Platelet mean volume (Bld) [Entitic vol] 8.6 fL Normal 6.4 - 10.5 [facility] Comment on above: Result Comment: AUTO MATED DIFFERENTIAL Performed By: #### 2 36341 #### [facility],[address] [place] [address] 77745 RBC 4.04 x 10EE6/UL Low 4.50 - 6.00 [facility] Comment on above: Performed By: #### 2 62022 #### [facility],[address] [place] [address] 44711 WBC 6.1 x 10EE3/UL Normal 4.5 - 10.8 [facility] Comment on above: Performed By: #### 2 77216 #### [facility],[address] [place] [address] 29030 CMP with eGFRon 05-07-2024 AGE 83 years Normal [facility] Comment on above: Performed By: #### 2 07540 #### [facility],[address] [place] [address] 65486 Albumin [Mass/Vol] 3.3 g/dL Low 3.4 - 5.0 [facility] Comment on above: Performed By: #### 2 82977 #### [facility],[address] [place] [address] 12725 Albumin/Globulin [Mass ratio] 0.9 {ratio} Normal 0.9 - 1.6 [facility] Comment on above: Performed By: #### 2 72958 #### [facility],[address] [place] [address] 96088 ALK PHOS 117 U/L High 46 - 116 [facility] Comment on above: Performed By: #### 2 49044 #### [facility],[address] [place] [address] 06490 ALT [Catalytic activity/Vol] 23 U/L Normal 16 - 63 [facility] Comment on above: Performed By: #### 2 98494 #### [facility],[address] [place] [address] 76361 Anion gap [Moles/Vol] 12 mmol/L Normal 10 - 20 [facility] Comment on above: Performed By: #### 2 66287 #### [facility],[address] [place] [address] 27841 AST [Catalytic activity/Vol] 21 U/L Normal 15 - 37 [facility] Comment on above: Performed By: #### 2 30466 #### [facility],[address] [place] [address] 68226 B/C RATIO 25 ratio Normal 0 - 30 [facility] Comment on above: Performed By: #### 2 49343 #### [facility],[address] [place] [address] 26331 Bilirubin [Mass/Vol] 0.7 mg/dL Normal 0.2 - 1.0 [facility] Comment on above: Performed By: #### 2 05513 #### [facility],[address] [place] [address] 84595 Calcium [Mass/Vol] 9.6 mg/dL Normal 8.5 - 10.1 [facility] Comment on above: Performed By: #### 2 86022 #### [facility],[address] [place] [address] 81837 Chloride [Moles/Vol] 105 mmol/L Normal 98 - 107 [facility] Comment on above: Performed By: #### 2 25538 #### [facility],[address] [place] [address] 61444 CMP with eGFR Normal [facility] Comment on above: Result Comment: COMP REHENSIVE METABOLIC PANEL Performed By: #### 2 27605 #### [facility],[address] [place] [address] 49187 CO2 [Moles/Vol] 27.6 mmol/L Normal 21.0 - 32.0 [facility] Comment on above: Performed By: #### 2 91889 #### [facility],[address] [place] [address] 11618 Creatinine [Mass/Vol] 1.06 mg/dL Normal 0.70 - 1.30 [facility] Comment on above: Performed By: #### 2 40968 #### [facility],[address] [place] [address] 04944 GFR/1.73 sq M.predicted among non-blacks MDRD (S/P/Bld) [Vol rate/Area] mL/min/{1.73_m2} Normal 60 - 999 [facility] Comment on above: Performed By: #### 2 33245 #### [facility],[address] [place] [address] 49676 Result Comment: ACCO RDING TO THE NATIONAL KIDNEY DISEASE EDUCATION PROGRAM(NKDE), A NORMAL eGFR IS A VALUE GREATER THAN OR EQUAL TO 60 ML/MIN/1.73 SQ METERS. CHRONIC KIDNEY DISEASE: <60mL/MIN/1.73 SQ METERS KIDNEY FAILURE: <15mL/MIN/1.73 SQ METERS THIS TEST SHOULD ONLY BE USED FOR PATIENTS 18 YEARS OF AGE AND OLDER. Globulin (S) [Mass/Vol] 3.7 g/dL Normal 1.5 - 3.8 [facility] Comment on above: Performed By: #### 2 59444 #### [facility],[address] [place] [address] 69110 Glucose [Mass/Vol] 80 mg/dL Normal 74 - 106 [facility] Comment on above: Performed By: #### 2 55934 #### [facility],[address] [place] [address] 45172 Potassium [Moles/Vol] 4.7 mmol/L Normal 3.5 - 5.1 [facility] Comment on above: Performed By: #### 2 87749 #### [facility],[address] [place] [address] 18340 Protein [Mass/Vol] 7.0 g/dL Normal 6.4 - 8.2 [facility] Comment on above: Performed By: #### 2 59200 #### [facility],[address] [place] [address] 09813 Sodium [Moles/Vol] 140 mmol/L Normal 136 - 145 [facility] Comment on above: Performed By: #### 2 77738 #### [facility],[address] [place] [address] 10054 Urea nitrogen [Mass/Vol] 27 mg/dL High 7 - 18 [facility] Comment on above: Performed By: #### 2 98912 #### [facility],[address] [place] [address] 27160 PSA,Total - Annual Screenon 05-05-2024 PSA,TOT SCREEN 7.09 ng/mL High 0.00-4.00 [facility] Comment on above: Result Comment: This test was performed using the TPSA assay method for the [employer] chemistry system. Values obtained with different assay methods cannot be used interchangably. When changing PSA assays in the course of monitoring a patient, additional sequential testing should be carried out to confirm baseline values. Performed By: #### L [id number] #### [facility] [place], [address] No Panel InformationOrdered By: Blake Gonzalez on 09-26-2023 Estimated GFR (MDRD) Amer 76 mL/min >60 [facility] Comment on above: GFR Calc Estimated GFR (MDRD) Non-Af Amer 63 mL/min >60 [facility] Comment on above: Non- GFR Calc Serum or plasma creatinine m easurement (mass/volume)Ordered By: Blake Gonzalez on 09-26-2023 Creatinine [Mass/Vol] 1.18 mg/dL 0.70-1.30 [facility] Comment on above: The validity of the calculated GFR & GFRAA in patients over 70 years has not been determined. Clinical correlation is essential. Vital Signs Date Time Vital Sign Value Performing Clinician Fionai valentinay 09-26-2023 13:14-0500 Body temperature 98.4 [degF] Dr. Blake Gonzalez Work Phone: [facility] 09-26-2023 13:14-0500 Body weight 59.[address] Blake Gonzalez Work Phone: [facility] 09-26-2023 13:14-0500 Diastolic blood pressure 76 mm[Hg] Dr. Blake Gonzalez Work Phone: [facility] 09-26-2023 13:14-0500 Heart rate 74 /min Dr. Blake Gonzalez Work Phone: [facility] 09-26-2023 13:14-0500 Respiratory rate 16 /min Dr. Blake Gonzalez Work Phone: [facility] 09-26-2023 13:14-0500 SaO2% (BldA) [Mass fraction] 96 % Dr. Blake Gonzalez Work Phone: [facility] 09-26-2023 13:14-0500 Systolic blood pressure 148 mm[Hg] Dr. Blake Gonzalez Work Phone: [facility] Encounters Encounter Date Encounter Type Care Provider Facility Start: 04-26-2025 ambulatory Cody Delaney Facility: [facility] Start: 04-08-2025 End: 04-08-2025 ambulatory TOMEKA MD VELLANKI [facility] Start: 01-13-2025 End: 01-13-2025 [facility] Start: 12-17-2024 End: 12-17-2024 ambulatory CODY DELANEY [facility] Start: 12-11-2024 ambulatory CODY DELANEY [facility] Start: 10-28-2024 ambulatory [facility] Facility: [facility] Start: 10-28-2024 End: 10-28-2024 ambulatory [facility] Facility:[facility] Start: 10-16-2024 End: 10-16-2024 ambulatory TOMEKA LÓPEZ [facility] Start: 09-06-2024 End: 09-06-2024 Emergency department [facility] Start: 07-31-2024 End: 07-31-2024 [facility] Start: 05-07-2024 End: 05-07-2024 [facility] [facility] Start: 05-05-2024 End: 05-05-2024 ambulatory [facility] Facility:[facility] Start: 10-11-2023 Non-patient / Non-visit Dr. Boo Delaney Work Phone: [facility] Start: 10-11-2023 End: 10-11-[address] Cody Delaney Work Phone: [facility] Work Phone: Start: 10-11-2023 End: 10-11-[address] Cody Delaney Work Phone: [facility] Work Phone: Start: 09-26-2023 End: 09-26-[address] Blake Gonzalez Work Phone: [facility] Work Phone: Start: 09-26-2023 End: 09-26-[address] Blake Gonzalez Work Phone: [facility] Work Phone: Start: 09-26-2023 End: 09-26-[address] Blake Gonzalez Work Phone: [facility] Work Phone: Start: 08-16-2023 Emergency department patient visit BRENNAN BARROS [facility] Procedures Date Procedure Procedure Detail Performing Clinician Start: 10-11-2023 CT angiography of he ad and neck Dr. Cody Delaney Work Phone: Plan of Treatment Date Care Activity Detail Author Ankle brachial pressure index [facility] CTA Head vessels and Neck vessels W contrast IV [facility] Payers Date Payer Category Payer Self-pay 2010 Unknown [id number] 1940 Unknown [id number] 2.16.8 [id number] 1940 Unknown [id number] 2.16.8 [id number] 1940 Unknown [id number] 2.16.8 [id number] 1940 Unknown [id number] 2.16.8 [id number] 1940 Unknown [id number] 2.16.8 [id number] 1940 Unknown [id number] 2.16.8 [id number] 1940 Unknown [id number] 2.16.8 [id number] 1940 Unknown [id number] 2.16.8 [id number] Unknown [id number] 2.16.8 [id number] Unknown [id number] 2.16.8 [id number] Unknown [id number] 2.16.8 [id number] Unknown [id number] 2.16.8 [id number] Social History Date Type Detail Facility Start: 09-26-2023 [facility] Start: 1940 Sex Assigned At Male [facility] Clinical Note 09-06-2024 Note Date & Type Note Facility 09-06-2024 Note Discharge Instructio ns Discharge Summary [address] [address] [id number] 09/06/2024 Patient: SABIHA WEBBER Sex: Male : 1940 Age: 83y Thank you for visiting [facility]. 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 You have been evaluated today by Luis [...] preventing falls. If (more content not included)... 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 Work Phone: Summary Purpose Family History [...] section and content) DATE CREATED AUTHOR 08/19/2023 [facility] DATE CREATED AUTHOR AUTHOR'S ORGANIZ ATION 04/10/2025 [facility] DATE CREATED AUTHOR AUTHOR'S ORGANIZ ATION 04/20/2025 [facility] Care Teams (unrecognized sec tion and content) [...] BE BASED ON THE PRIMARY CLINICAL RECORDS. [employer] provides no warranty or guarantee of the accuracy or completeness of information in this document.
== END | disposition home or self-care (01) ==
PROVIDERS: Referring Provider Physician Assistant; Visit Provider Physician Assistant
DX: I65.21 Occlusion and stenosis of right carotid artery (principal)
CPT/HCPCS: 93880

== ENCOUNTER 2025-09-01 05:56 | Day surgery (SDC) | payer MEDICARE, SELFPAY ==
--- NOTE | 2025-08-27 15:41 | PAT.ANESEVAL ---
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 When Was Last Pacemaker Check QUESTION #4 FULL TEXT: You/Your Family Experience fever (hyperthermia) with Anesthesia Last Oral Intake Last Oral intake: Last Oral Intake NPO since Meds taken in AM with sips of water? Meds patient instructed to take am of surgery PONV PONV - aircraft instrument engineer: PONV - aircraft instrument engineer Female No 08/27/25 08:40 HX of Motion Sickness No 08/27/25 08:40 HX of N/V After Surgery No 08/27/25 08:40 Non-Smoker Yes 08/27/25 08:40 Duration of Surgery greater Yes 08/27/25 08:40 than 60 minutes Number of Risk Factors 2 08/27/25 08:40 PONV Score Moderate Risk 08/27/25 08:40 Respiratory Assessment Respiratory Assessment - aircraft instrument engineer: Respiratory Tract Infection Hx - aircraft instrument engineer Hx Respiratory Tract Infection No 08/27/25 08:40 STOP Sleep Apnea STOP Sleep Apnea - aircraft instrument engineer: STOP Sleep Apnea - aircraft instrument engineer Hx Hypertension No 08/27/25 08:40 Hx Sleep Apnea No 08/27/25 08:40 CPAP BIPAP Do you snore loudly (louder Yes 08/27/25 08:40 than talking or can be heard Do you often feel tired/ No 08/27/25 08:40 fatigued/ sleepy during daytime? Has anyone observed you stop Yes 08/27/25 08:40 breathing during sleep? STOP Results Positive 08/27/25 08:40 QUESTION #5 FULL TEXT : Do you snore loudly (louder than talking or can be heard through closed doors)? 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 Specify any problems Hx of Preganancy in last 3 N/A 08/27/25 08:40 Months Nurse Filling Out Transfusion DSCHRIBER 08/27/25 08:40 & Questions: Date: 08/27/25 08/27/25 08:40 Time: 08:44 08/27/25 08:40 Patient unable to answer at this time (ie. confused, unrespo /Reproduction History /Reproductive History - aircraft instrument engineer: /Reproductive Hx- aircraft instrument engineer Hx Now No 08/27/25 08:40 Gestational Age (in weeks): EDC: Hx Hx Para Hx Section SAB No 08/27/25 08:40 Does the father of the baby or his family experience fever w Father of the baby Malignant Hypertension history comment [facility] Medical History (Updated 08/27/25 @ 08:59 by Denisse Martinez) Wears glasses Fall Ambulates with cane Walker as ambulation aid Rheumatoid arthritis UTI (urinary tract infection) Prostate disease Indwelling urethral catheter present High cholesterol Back pain Shingles Former smoker History of pain when walking Elevated serum creatinine Glaucoma Benign prostatic hyperplasia Home Medications ?Medication ?Instructions ?Recorded ?Last Taken ?Type acetaminophen 650 mg 650 mg PO Q8H PRN pain 02/25/23 Unknown History tablet,extended release (Tylenol Arthritis Pain) folic acid 1 mg tablet 2 mg PO DAILY 02/25/23 Unknown History latanoprost 0.005 % eye drops 1 drp ophthalmic (eye) QPM 02/25/23 Unknown History methotrexate sodium 2.5 mg tablet 12.5 mg PO WE 02/25/23 Unknown History atorvastatin 40 mg tablet 40 mg PO QHS #30 tabs 12/08/24 Unknown Rx lutein 20 mg capsule 20 mg PO QDAY 06/09/25 Unknown History tamsulosin 0.4 mg capsule 0.4 mg PO QHS 06/09/25 Unknown History finasteride 5 mg tablet 5 mg PO DAILY 08/27/25 Unknown History prednisone 10 mg tablet 10 mg PO DAILY PRN RA 08/27/25 Unknown History tramadol 50 mg tablet 50 mg PO TID PRN PRN pain 08/27/25 Unknown History Allergy/AdvReac Type Severity Reaction Status Date / Time No Known Allergies Allergy Verified 08/27/25 08:35 Family History Father Myocardial infarction Mother CVA (cerebral vascular accident) Brother Cancer lung ca. Sister COPD (chronic obstructive pulmonary disease) Sister Dementia Other Sudden cardiac Surgical History (Updated 08/27/25 @ 08:59 by Denisse Martinez) Hx of colonoscopy History of prostate surgery H/O inguinal hernia repair (~2010) H/O cataract extraction (~2015) Social History Smoking Status: Former smoker Audit: Pertinent Findings Pertinent Findings EKG Perinent findings: 08/16/2023. Sinus rhythm with PACs. [address] abnormality. Recommendation Anesthesia Recommendation Anesthesia recommendation: OPTIMIZED for anesthesia
[2025-09-01] VITALS (21 sets, daily range): BP systolic 73–160; BP diastolic 59–93; PULSE 89–110; RESP 14–20; TEMP 36.1–36.7; O2SAT 90–99; BMI 21.4; BMI 25.7
--- OUTSIDE RECORDS SUMMARY | 2025-09-01 05:59 | XMS RPT_ITS | CCD ---
Author Organization [facility] Care Team Providers Care Vegetable Tester Name Role Phone BRENNAN BARROS Attending Unavailable BRENNAN BARROS Primary Care Unavailable BRENNAN BARROS Admitting Unavailable Dr. Blake Gonzalez Attending Provider [phone] Cody Delaney Primary Care Provider Unavailable Primary Care Provider Unavailabl e Reanna Maldonado Attending Provider [phone] Reanna Maldonado Referring Provider [phone] Care Physician, No Primary Primary Care Provider Unavailable Dr. Blake Gonzalez MD Attending Provider Cody Delaney Primary Care Unavailable Diaz, Reanna Attending Unavailable Diaz, Reanna Referring Unavailable Diaz, Reanna Attending Unavailable Diaz, Reanna Referring Unavailable Care Physician, No Primary Primary Care Unava ilable Cody Delaney Primary Care Unavailable Diaz, Reanna Referring Unavailable Blake Gonzalez Attending Unavailable Diaz, Reanna Referring Unavailable Lisa Blake Attending Unavailable Care Physician, No Primary Primary Care Unava ilable Blake Gonzalez Attending Unavailable Care Physician, No Primary Primary Care Unava ilable Care Physician, No Primary Referring Unava ilable Reanna Maldonado Attending Physician Care Physician, No Primary Primary Care Physicia n Unavailable Dr. Blake Gonzalez MD Attending Physician Care Physician, No Primary Referring Provider Un available TOMEKA GOMES MD Admitting Unavailable TOMEKA GOMES MD Attending Unavailable TOMEKA GOMES MD Primary Care Unavailable TOMEKA GOMES MD Admitting Unavailable TOMEKA GOMES MD Attending Unavailable TOMEKA GOMES MD Primary Care Unavailable TOMEKA GOMES MD Admitting Unavailable TOMEKA GOMES MD Attending Unavailable TOMEKA GOMES MD Primary Care Unavailable CODY DELANEY MD Consulting Unavailable PROVIDER, UNKNOWN Consulting Unavailable PROVIDER, UNKNOWN Consulting Unavailable PROVIDER, UNKNOWN Consulting Unavailable CODY DELANEY MD Consulting Unavailable CODY DELANEY MD Primary Care Unavailable CODY DELANEY MD Admitting Unavailable CODY DELANEY MD Attending Unavailable PROVIDER, UNKNOWN Consulting Unavailable PROVIDER, UNKNOWN Consulting Unavailable PROVIDER, UNKNOWN Consulting Unavailable TOMEKA GOMES MD Attending Unavailable TOMEKA GOMES MD Primary Care Unavailable TOMEKA GOMES MD Admitting Unavailable TOMEKA GOMES MD Admitting Unavailable TOMEKA GOMES MD Attending Unavailable VIRGIE GAMBOA APRN Referring UnavailTOMEKA Drummond MD Primary Care Unavailable CODY DELANEY MD Primary Care Unavailable CODY DELANEY MD Admitting Unavailable CODY DELANEY MD Attending Unavailable VIRGIE GAMBOA APRN Referring Unavailabl e VIRGIE GAMBOA APRN Consulting Unavailnima e JENNIFER GIMENEZ MD Attending Unavailable JENNIFER GIMENEZ MD Primary Care Unavailable JENNIFER GIMENEZ MD Admitting Unavailable PROVIDER, UNKNOWN Consulting Unavailable CODY DELANEY MD Consulting Unavailable LUIS LEBLANC JR Attending Unavailable LUIS LEBLANC JR Primary Care Unavailable LUIS LEBLANC JR Admitting Unavailable CODY DELANEY MD Referring Unavailable PROVIDER, UNKNOWN Consulting Unavailable PROVIDER, UNKNOWN Consulting Unavailable PROVIDER, UNKNOWN Consulting Unavailable Medications Current Medications Medication Drug Class(es) Dates Sig (Normalized) Sig (Original) 8 hr acetaminophen 650 mg extended release oral tablet (4 sources) Start: 02-25-2023 take 1 tablet by mouth every eight hours as needed for pain Acetaminophen (Tylenol Arthritis Pain) 650 mg tablet extended release Active 650 mg PO Q8H as needed for pain February 25, 2023 12:00am Complies with drug therapy methotrexate 2.5 mg oral tablet (5 sources) Folate Analog Metabolic Inhibitor Start: 02-25-2023 take 5 tablets by mouth every week Methotrexate Sodium 2.5 mg tablet Active 12.5 mg PO EVERY WEEK February 25, 2023 12:00am Complies with drug therapy Start: 02-25-2023 take 12.5 mg by mout h every week Methotrexate Sodium Active 12.5 MG PO EVERY WEEK February 24, 2023 11:00pm Comment on above: Take 12.5 mg by mout h. Completed/Discontinued Medications Medication Drug Class(es) Dates Sig (Normalized) Sig (Original) atorvastatin 40 mg oral tablet (13 sources) HMG-CoA Reductase Inhibitor Start: 10-16-2023 End: 12-08-2024 take 1 tablet by mouth at bedtime Atorvastatin 40 mg tablet Discontinued 40 mg PO AT BEDTIME 30 5 December 10, 2023 7:47am December 08, 2024 10:21am Start: 09-26-2023 End: 10-30-2023 take 1 tablet by mouth at bedtime Atorvastatin (Lipitor) 20 mg tablet Discontinued 20 mg PO AT BEDTIME 30 0 September 26, 2023 1:00am October 30, 2023 12:59pm Comment on above: Take 40 mg by mouth daily at bedtime. benzonatate 100 mg oral capsule (1 source) Non-narcotic Antitussive Start: 4 take 1 capsule by mouth three times daily as needed for cough benzonatate (TESSALON PERLES) 100 mg capsule Indications: Viral URI with cough Take 1 capsule by mouth three times a day as needed for cough. 30 capsule 0 12/20/2023 Active Comment on above: Take 1 capsule by mo [facility] three times a day as needed for cough. folic acid 1 mg oral tablet (5 sources) Start: 4 take 2 tablets by mouth once folic acid 1 mg tablet Take 2 tablets by mouth every afternoon. 0 11/12/2023 Active Start: 02-25-2023 [facility] Folic Acid 1 mg tablet Active 1 mg PO TWICE A DAY February 25, 2023 12:00am Complies with drug therapy Comment on above: Take 2 tablets by mo [facility] every afternoon. latanoprost 0.05 mg/ml ophthalmic solution (5 sources) Prostaglandin Analog Start: 4 take 1 drop(s) into the eye(s) once daily at bedtime latanoprost (XALATAN) 0.005 % ophthalmic solution Use 1 Drop in both eyes daily at bedtime. 0 11/11/2023 Active Start: 02-25-2023 Latanoprost 0. 005 % drops Active 1 NMA OPHTHALMIC EVERY EVENING February 25, 2023 12:00am both eyes Complies with drug therapy Start: 02-25-2023 Latanoprost Ac tive 1 DRP OPHTHALMIC EVERY EVENING February 24, 2023 11:00pm both eyes Comment on above: Use 1 Drop in both e yes daily at bedtime. lutein 20 mg oral capsule (1 source) Start: take 1 capsule by mouth once daily Lutein 20 mg capsule Discontinued 20 mg PO daily June 09, 2025 12:00am give with meal/snack tamsulosin hydrochloride 0.4 mg oral capsule (1 source) alpha-Adrenergic Myrna Start: 5 take 1 capsule by mouth once daily Tamsulosin 0.4 mg capsule Discontinued 0.4 mg PO daily June 09, 2025 12:00am Problems Problem Classification Problem Date Documented Date Episodic/Chronic Disorders of lipid metabolism (1 source) Pure hypercholesterolemia, unspecified; Translations: [Pure hypercholesterolemia, unspecified] Onset: 12-17-2024 Chronic Essential hypertension (5 sources) Hypertensive disorder; Translations: [Essential (primary) hypertension] Onset: 07-01-2025 02-25-2023 Chronic Hyperplasia of prostate (1 source) Benign prostatic hyperplasia without lower urinary tract symptoms; Translations: [Benign prostatic hyperplasia without lower urinary tract symptoms] Onset: 07-01-2025 Chronic Occlusion or stenosis of precerebral arteries (8 sources) Right carotid artery stenosis; Translations: [Occlusion and stenosis of right carotid artery] Onset: 04-30-2025 09-26-2023 Chronic Comment on above: CTA- images reviewed , right ICA 46% by NASCET, 67% by ECST, left ICA 18% by NASCET, 51% by ECST, left subclavian occlusion Duplex- Interpretati on SummaryModerate (50-69%) stenosis right extracranial internal carotid. Limited due to calcific shadowing.Mild (<50%) stenosis left extracranial internal carotid.The Right vertebral is patent and antegrade.The Left vertebral flow is retrograde. 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; Translations: [Other residential (current) drug therapy] Onset: 07-01-2025 Episodic Other circulatory disease (4 sources) Subclavian artery stenosis; Translations: [Stricture of artery] 02-25-2023 Chronic Other circulatory disease (4 sources) Abnormal radial pulse; Translations: [Other specified symptoms and signs involving the circulatory and respiratory systems] 02-25-2023 Episodic Other nervous system disorders (4 sources) Cold feet; Translations: [Unspecified disturbances of skin sensation] 02-25-2023 Episodic Other screening for suspected conditions (not mental disorders or infectious disease) (2 sources) Abnormal results of thyroid function studies; Translations: [Other specified abnormal findings of blood chemistry] Onset: 12-17-2024 Episodic Other upper respiratory infections (1 source) Viral upper respiratory tract infection; Translations: [Acute upper respiratory infection, unspecified] 12-20-2023 Episodic Peripheral and visceral atherosclerosis (4 sources) Peripheral vascular disease; Translations: [Peripheral vascular disease, unspecified] 02-25-2023 Chronic Rheumatoid arthritis and related disease (3 sources) Rheumatoid arthritis with rheumatoid factor of unspecified site without organ or systems involvement; Translations: [Rheumatoid arthritis with rheumatoid factor of unspecified site without organ or systems involvement] Onset: 07-01-2025 Chronic Substance-related disorders (4 sources) Tobacco dependence syndrome; Translations: [Nicotine dependence, unspecified, uncomplicated] 02-25-2023 Chronic Results Test Name Value Interpretation Reference Range Facility BMP with eGFRon 07-27-2025 AGE 84 years Normal [facility] Comment on above: Performed By: #### 2 [id number] ####[facility],[address] [place] [address] Anion gap [Moles/Vol] 9 mmol/L Low 10 - 20 [facility] Comment on above: Performed By: #### 2 [id number] ####[facility],[address] [place] [address] BMP with eGFR Normal [facility] Comment on above: Result Comment: BASI C METABOLIC PANEL Performed By: #### 2 [id number] ####[facility],[address] [place] [address] Calcium [Mass/Vol] 8.2 mg/dL Low 8.5 - 10.1 [facility] Comment on above: Performed By: #### 2 78417 ####[facility],[address] [place], [place] [id number] Chloride [Moles/Vol] 99 mmol/L Normal 98 - 107 [facility] Comment on above: Performed By: #### 2 34086 ####[facility],[address] [place], [place] [id number] CO2 [Moles/Vol] 26.1 mmol/L Normal 21.0 - 32.0 [facility] Comment on above: Performed By: #### 2 89795 ####[facility],[address] [place] [address] Creatinine [Mass/Vol] 0.96 mg/dL Normal 0.70 - 1.30 [facility] Comment on above: Performed By: #### 2 89053 ####[facility],[address] [place] [address] GFR/1.73 sq M.predicted among non-blacks MDRD (S/P/Bld) [Vol rate/Area] mL/min/{1.73_m2} Normal 60 - 999 [facility] Comment on above: Performed By: #### 2 67957 ####[facility],[address] [place] [address] Result Comment: ACCO RDING TO THE NATIONAL KIDNEY DISEASE EDUCATION PROGRAM(NKDE), A NORMAL eGFR IS A VALUE GREATER THAN OR EQUAL TO 60 ML/MIN/1.73 SQ METERS. CHRONIC KIDNEY DISEASE: <60mL/MIN/1.73 SQ METERS KIDNEY FAILURE: <15mL/MIN/1.73 SQ METERS THIS TEST SHOULD ONLY BE USED FOR PATIENTS 18 YEARS OF AGE AND OLDER. Glucose [Mass/Vol] 83 mg/dL Normal 74 - 106 [facility] Comment on above: Performed By: #### 2 51768 ####[facility],[address] [place], [place] [id number] Potassium [Moles/Vol] 4.2 mmol/L Normal 3.5 - 5.1 [facility] Comment on above: Performed By: #### 2 86851 ####[facility],[address] [place] [address] 56938 Sodium [Moles/Vol] 130 mmol/L Low 136 - 145 [facility] Comment on above: Performed By: #### 2 84026 ####[facility],[address] [place] [address] 79504 Urea nitrogen [Mass/Vol] 20 mg/dL High 7 - 18 [facility] Comment on above: Performed By: #### 2 82918 ####[facility],[address] [place] [address] 82070 B12 FOLATE PANELon Cobalamin (Vitamin B12) [Mass/Vol] 1094 pg/mL High 193 - 986 [facility] Comment on above: Performed By: #### 2 74426 #### [facility],[address] [place] [address] 83177 FOLATES 37.7 ng/ml Normal 8.6 - 58.9 [facility] Comment on above: Performed By: #### 2 91585 #### [facility],[address] [place] [address] 35285 CBC + DIFFon 07-26-2025 Baso # 0.02 x10EE3/UL Normal 0.00 - 0.10 [facility] Comment on above: Performed By: #### 2 76393 ####[facility],[address] [place] [address] 14374 Basophils/100 WBC (Bld) 0.3 % Normal 0.0 - 2.0 [facility] Comment on above: Performed By: #### 2 14258 ####[facility],[address] [place] [address] 21235 CBC + DIFF Normal [facility] Comment on above: Result Comment: CBC- COMPLETE BLOOD COUNT Performed By: #### 2 71036 ####[facility],[address] [place] [address] 01117 EO # 0.08 x10EE3/UL Normal 0.00 - 0.50 [facility] Comment on above: Performed By: #### 2 31295 ####[place] [address] Eosinophils/100 WBC (Bld) 1.1 % Normal 0.0 - 7.0 [facility] Comment on above: Performed By: #### 2 21527 ####[facility],[address] [place] [address] Erythrocyte distribution width (RBC) [Ratio] 12.9 % Normal 12.0 - 15.6 [facility] Comment on above: Performed By: #### 2 93253 ####[place] [address] Hematocrit (Bld) [Volume fraction] 39.3 % Low 40.0 - 52.0 [facility] Comment on above: Performed By: #### 2 65499 ####[place] [address] Hemoglobin (Bld) [Mass/Vol] 13.6 g/dL Normal 13.0 - 17.5 [facility] Comment on above: Performed By: #### 2 36823 ####[place] [address] Lymph # 0.84 x10EE3/UL Normal 0.80 - 2.80 [facility] Comment on above: Performed By: #### 2 31278 ####[place] [id number] Lymphocytes/100 WBC (Bld) 11.1 % Low 20.0 - 45.0 [facility] Comment on above: Performed By: #### 2 80316 ####[place] [id number] MANUAL DIFF N/A Normal [facility] Comment on above: Performed By: #### 2 47633 ####[place] [address] MCH (RBC) [Entitic mass] 34 pg High 27 - 33 [facility] Comment on above: Performed By: #### 2 73195 ####[facility],[address] [place] [address] MCHC 35 X10 3 Normal 32 - 36 [facility] Comment on above: Performed By: #### 2 48003 ####[facility],[address] [place] [address] MCV (RBC) [Entitic vol] 98 fL Normal 81 - 98 [facility] Comment on above: Performed By: #### 2 15242 ####[facility],[address] [place] [address] [place] # 1.40 x10EE3/UL High 0.20 - 1.00 [facility] Comment on above: Performed By: #### 2 77423 ####[facility],[address] [place] [address] MONOS % 18.5 % High 0.0 - 10.0 [facility] Comment on above: Performed By: #### 2 36237 ####[facility],[address] [place] [address] Morphology Yao (Bld) [Interp] N/A Normal [facility] Comment on above: Performed By: #### 2 14364 ####[facility],[address] [place] [address] Neut # 5.23 x10EE3/UL Normal 1.50 - 7.10 [facility] Comment on above: Performed By: #### 2 96039 ####[facility],[address] [place] [address] Neutrophils/100 WBC (Bld) 69.0 % Normal 46.0 - 76.0 [facility] Comment on above: Performed By: #### 2 06421 ####[facility],[address] [place] [address] PLATELET 127 x10EE3/UL Low 150 - 450 [facility] Comment on above: Performed By: #### 2 14522 ####[facility],[address] [place] [address] 67119 Platelet mean volume (Bld) [Entitic vol] 8.6 fL Normal 6.4 - 10.5 [facility] Comment on above: Result Comment: AUTO MATED DIFFERENTIAL Performed By: #### 2 74853 ####[facility],[address] [place] [address] RBC 4.03 x 10EE6/UL Low 4.50 - 6.00 [facility] Comment on above: Performed By: #### 2 28864 ####[facility],[address] [place], [place] [id number] WBC 7.6 x 10EE3/UL Normal 4.5 - 10.8 [facility] Comment on above: Performed By: #### 2 11953 ####[facility],[address] [place], [place] [id number] CMP with eGFRon 07-26-2025 AGE 84 years Normal [facility] Comment on above: Performed By: #### 2 21328 ####[facility],[address] [place], [place] [id number] Albumin [Mass/Vol] 2.5 g/dL Low 3.4 - 5.0 [facility] Comment on above: Performed By: #### 2 30904 ####[facility],[address] [place], [place] [address] Albumin/Globulin [Mass ratio] 0.9 {ratio} Normal 0.9 - 1.6 [facility] Comment on above: Performed By: #### 2 03984 ####[facility],[address] [place] [address] 19358 ALK PHOS 67 U/L Normal 46 - 116 [facility] Comment on above: Performed By: #### 2 69378 ####[facility],[address] [place] [address] 48352 ALT [Catalytic activity/Vol] 17 U/L Normal 16 - 63 [facility] Comment on above: Performed By: #### 2 09889 ####[facility],[address] [place] [address] 95413 Anion gap [Moles/Vol] 11 mmol/L Normal 10 - 20 [facility] Comment on above: Performed By: #### 2 04535 ####[facility],[address] [place] [address] 61204 AST [Catalytic activity/Vol] 23 U/L Normal 15 - 37 [facility] Comment on above: Performed By: #### 2 73472 ####[facility],[address] [place] [address] 56230 B/C RATIO 18 ratio Normal 0 - 30 [facility] Comment on above: Performed By: #### 2 75516 ####[facility],[address] [place] [address] 79858 Bilirubin [Mass/Vol] 0.7 mg/dL Normal 0.2 - 1.0 [facility] Comment on above: Performed By: #### 2 49721 ####[facility],[address] [place] [address] 02803 Calcium [Mass/Vol] 8.0 mg/dL Low 8.5 - 10.1 [facility] Comment on above: Performed By: #### 2 10088 ####[facility],[address] [place] [address] 20645 Chloride [Moles/Vol] 98 mmol/L Normal 98 - 107 [facility] Comment on above: Performed By: #### 2 99084 ####[facility],[address] [place] [address] 87358 CMP with eGFR Normal [facility] Comment on above: Result Comment: COMP REHENSIVE METABOLIC PANEL Performed By: #### 2 49370 ####[facility],[address] [place], [place] [address] CO2 [Moles/Vol] 23.5 mmol/L Normal 21.0 - 32.0 [facility] Comment on above: Performed By: #### 2 86077 ####[facility],[address] [place] [address] 19411 Creatinine [Mass/Vol] 0.95 mg/dL Normal 0.70 - 1.30 [facility] Comment on above: Performed By: #### 2 94553 ####[facility],[address] [place], [place] [address] GFR/1.73 sq M.predicted among non-blacks MDRD (S/P/Bld) [Vol rate/Area] mL/min/{1.73_m2} Normal 60 - 999 [facility] Comment on above: Performed By: #### 2 73144 ####[facility],[address] [place] [address] Result Comment: ACCO RDING TO THE NATIONAL KIDNEY DISEASE EDUCATION PROGRAM(NKDE), A NORMAL eGFR IS A VALUE GREATER THAN OR EQUAL TO 60 ML/MIN/1.73 SQ METERS. CHRONIC KIDNEY DISEASE: <60mL/MIN/1.73 SQ METERS KIDNEY FAILURE: <15mL/MIN/1.73 SQ METERS THIS TEST SHOULD ONLY BE USED FOR PATIENTS 18 YEARS OF AGE AND OLDER. Globulin (S) [Mass/Vol] 2.9 g/dL Normal 1.5 - 3.8 [facility] Comment on above: Performed By: #### 2 84460 ####[facility],[address] [place] [address] 93586 Glucose [Mass/Vol] 95 mg/dL Normal 74 - 106 [facility] Comment on above: Performed By: #### 2 20849 ####[facility],[address] [place] [address] 14684 Potassium [Moles/Vol] 3.9 mmol/L Normal 3.5 - 5.1 [facility] Comment on above: Performed By: #### 2 88900 ####[facility],[address] [place] [address] 37463 Protein [Mass/Vol] 5.4 g/dL Low 6.4 - 8.2 [facility] Comment on above: Performed By: #### 2 77775 ####[facility],[address] [place] [address] 83965 Sodium [Moles/Vol] 129 mmol/L Low 136 - 145 [facility] Comment on above: Performed By: #### 2 57764 ####[facility],[address] [place] [address] 41428 Urea nitrogen [Mass/Vol] 17 mg/dL Normal 7 - 18 [facility] Comment on above: Performed By: #### 2 10215 ####[facility],[address] [place] [address] 89403 TSH W/ REFLEX TO FREE T4on 1 09-25-2024 TSH Qn 3.54 m[IU]/L Normal 0.34 - 5.60 [facility] Comment on above: Performed By: #### 2 53570 #### [facility],[address] [place] [address] 28901 URINALYSISon 07-26-2025 Amorphous NONE Normal [facility] Comment on above: Performed By: #### 2 92441 ####[facility],[address] [place] [address] 96915 Bacteria TRACE Normal [facility] Comment on above: Performed By: #### 2 27799 ####[facility],[address] [place] [address] 46447 Bilirubin Ql (U) Negative Normal NORMAL: NEGATIVE [facility] Comment on above: Performed By: #### 2 41037 ####[facility],[address] [place] [address] 58004 Casts NONE Normal [facility] Comment on above: Performed By: #### 2 49818 ####[facility],[address] [place], [place] [address] Clarity (U) clear Normal NORMAL: CLEAR [facility] Comment on above: Performed By: #### 2 90470 ####[facility],[address] [place], [place] [id number] Color (U) p.yel Normal NORMAL: YELLOW [facility] Comment on above: Performed By: #### 2 40341 ####[facility],[address] [place], [place] [id number] Crystals LM Nom (Urine sed) NONE Normal [facility] Comment on above: Performed By: #### 2 57669 ####[facility],[address] [place], [place] [id number] Epi Cells NONE Normal [facility] Comment on above: Performed By: #### 2 75611 ####[facility],[address] [place], [place] [id number] Glucose Ql (U) NORM Normal NORMAL: NORMAL [facility] Comment on above: Performed By: #### 2 18736 ####[facility],[address] [place] [address] 69544 Hemoglobin Ql (U) 150 Abnormal NORMAL: NEGATIVE [facility] Comment on above: Performed By: #### 2 54932 ####[facility],[address] [place] [address] 29017 Ketone Negative Normal NORMAL: NEGATIVE [facility] Comment on above: Performed By: #### 2 36922 ####[facility],[address] [place] [address] 97830 Leukocytes Negative Normal NORMAL: NEGATIVE [facility] Comment on above: Performed By: #### 2 91251 ####[facility],[address] [place] [address] 05698 Mucous NONE Normal [facility] Comment on above: Performed By: #### 2 43028 ####[facility],[address] [place] [address] 49515 Nitrite Ql (U) Negative Normal NORMAL: NEGATIVE [facility] Comment on above: Performed By: #### 2 41751 ####[facility],[address] [place] [address] pH (U) 6 [pH] Normal NORMAL: 5.0-8.0 [facility] Comment on above: Performed By: #### 2 49704 ####[facility],[address] [place] [address] Protein Ql (U) 15 Abnormal NORMAL: NEGATIVE [facility] Comment on above: Performed By: #### 2 46939 ####[facility],[address] [place] [address] Rbc 5-10 Normal 0-3/hpf [facility] Comment on above: Performed By: #### 2 57113 ####[facility],[address] [place] [address] Sp [place] 1.010 Normal NORMAL: 1.010-1.030 [facility] Comment on above: Performed By: #### 2 02539 ####[facility],[address] [place] [address] Specimen Type Catheter Normal [facility] Comment on above: Performed By: #### 2 82704 ####[facility],[address] [place] [address] Urinalysis dipstick W Reflex Microscopic panel (U) SEE BELOW Normal [facility] Comment on above: Result Comment: MICR OSCOPIC Performed By: #### 2 84819 ####[facility],[address] [place] [address] Urobilinog NORM Normal NORMAL: NORMAL [facility] Comment on above: Performed By: #### 2 72991 ####[facility],[address] [place] [address] Wbc NONE Normal 0-5/hpf [facility] Comment on above: Performed By: #### 2 71984 ####[facility],[address] [place] [address] 61309 Yeast NONE Normal [facility] Comment on above: Performed By: #### 2 07618 ####[facility],[address] [place] [address] 35266 VITAMIN B-12on 07-26-2025 Cobalamin (Vitamin B12) [Mass/Vol] 1094 pg/mL High 193 - 986 [facility] Comment on above: Performed By: #### 2 96534 #### [facility],[address] [place] [address] 58839 VITAMIN D, 25 HYDROXYon 07-17 VitD 35.80 ng/mL Normal 30.00 - 100 [facility] Comment on above: Result Comment: 25-O HD3 indicates both endogenous production and supplementation. 25-OHD2 is an indicator of exogenous sources, such as diet or supplementation. Therapy is based on measurement of Total 25-OHD, with levels <20 ng/mL indicative of Vitamin D deficiency, while levels between 20 ng/mL and 30 ng/mL suggest insufficiency. Optimal levels are >=30ng/mL. Vitamin D, 25-OH D3 Not Established Vitamin D, 25-OH D2 Not Established Performed By: #### 2 94704 ####[facility],[address] [place] [address] 45322 CBC + DIFFon 07-25-2025 Baso # 0.03 x10EE3/UL Normal 0.00 - 0.10 [facility] Comment on above: Performed By: #### 2 70336 ####[facility],[address] [place] [address] 91720 Basophils/100 WBC (Bld) 0.3 % Normal 0.0 - 2.0 [facility] Comment on above: Performed By: #### 2 87268 ####[facility],[address] [place] [address] 35742 CBC + DIFF Normal [facility] Comment on above: Result Comment: CBC- COMPLETE BLOOD COUNT Performed By: #### 2 04052 ####[facility] [place] [address] 21081 EO # 0.07 x10EE3/UL Normal 0.00 - 0.50 [facility] Comment on above: Performed By: #### 2 32753 ####[facility],[address] [place] [address] 38868 Eosinophils/100 WBC (Bld) 0.8 % Normal 0.0 - 7.0 [facility] Comment on above: Performed By: #### 2 73567 ####[facility],[address] [place] [address] Erythrocyte distribution width (RBC) [Ratio] 12.9 % Normal 12.0 - 15.6 [facility] Comment on above: Performed By: #### 2 26259 ####[facility],[address] [place] [address] Hematocrit (Bld) [Volume fraction] 41.0 % Normal 40.0 - 52.0 [facility] Comment on above: Performed By: #### 2 92048 ####[facility],[address] [place] [address] Hemoglobin (Bld) [Mass/Vol] 14.4 g/dL Normal 13.0 - 17.5 [facility] Comment on above: Performed By: #### 2 48698 ####[facility],[address] [place] [address] 70329 Lymph # 0.71 x10EE3/UL Low 0.80 - 2.80 [facility] Comment on above: Performed By: #### 2 56709 ####[facility],[address] [place] [address] 84287 Lymphocytes/100 WBC (Bld) 7.7 % Low 20.0 - 45.0 [facility] Comment on above: Performed By: #### 2 42308 ####[facility],[address] [place], [place] [id number] MANUAL DIFF N/A Normal [facility] Comment on above: Performed By: #### 2 46920 ####[facility],[address] [place] [address] 80473 MCH (RBC) [Entitic mass] 34 pg High 27 - 33 [facility] Comment on above: Performed By: #### 2 16712 ####[facility],[address] [place] [address] 25556 MCHC 35 X10 3 Normal 32 - 36 [facility] Comment on above: Performed By: #### 2 20348 ####[facility],[address] [place] [address] 97403 MCV (RBC) [Entitic vol] 98 fL Normal 81 - 98 [facility] Comment on above: Performed By: #### 2 05804 ####[facility],[address] [place] [address] 85298 [place] # 1.47 x10EE3/UL High 0.20 - 1.00 [facility] Comment on above: Performed By: #### 2 42372 ####[facility],[address] [place] [address] 39375 MONOS % 15.9 % High 0.0 - 10.0 [facility] Comment on above: Performed By: #### 2 00057 ####[facility],[address] [place] [address] 29137 Morphology Yao (Bld) [Interp] N/A Normal [facility] Comment on above: Performed By: #### 2 83409 ####[facility],[address] [place] [address] 91858 Neut # 6.96 x10EE3/UL Normal 1.50 - 7.10 [facility] Comment on above: Performed By: #### 2 39508 ####[facility],[address] [place] [address] 47136 Neutrophils/100 WBC (Bld) 75.3 % Normal 46.0 - 76.0 [facility] Comment on above: Performed By: #### 2 82972 ####[facility],[address] [place] [address] 87765 PLATELET 118 x10EE3/UL Low 150 - 450 [facility] Comment on above: Performed By: #### 2 40485 ####[facility],[address] [place] [address] 88480 Platelet mean volume (Bld) [Entitic vol] 8.7 fL Normal 6.4 - 10.5 [facility] Comment on above: Result Comment: AUTO MATED DIFFERENTIAL Performed By: #### 2 65077 ####[facility],[address] [place] [address] 83389 RBC 4.19 x 10EE6/UL Low 4.50 - 6.00 [facility] Comment on above: Performed By: #### 2 23798 ####[facility],[address] [place] [address] 01018 WBC 9.2 x 10EE3/UL Normal 4.5 - 10.8 [facility] Comment on above: Performed By: #### 2 88680 ####[facility],[address] [place] [address] 79043 CMP with eGFRon 07-25-2025 AGE 84 years Normal [facility] Comment on above: Performed By: #### 2 88764 #### [facility],[address] [place] [address] 77149 Albumin [Mass/Vol] 2.9 g/dL Low 3.4 - 5.0 [facility] Comment on above: Performed By: #### 2 41079 #### [facility],[address] [place] [address] 54160 Albumin/Globulin [Mass ratio] 0.9 {ratio} Normal 0.9 - 1.6 [facility] Comment on above: Performed By: #### 2 14576 #### [facility],[address] [place] [address] 23671 ALK PHOS 86 U/L Normal 46 - 116 [facility] Comment on above: Performed By: #### 2 31160 #### [facility],[address] [place] [address] 97304 ALT [Catalytic activity/Vol] 18 U/L Normal 16 - 63 [facility] Comment on above: Performed By: #### 2 18566 #### [facility],[address] [place] [address] Anion gap [Moles/Vol] 12 mmol/L Normal 10 - 20 [facility] Comment on above: Performed By: #### 2 16958 #### [facility],[address] [place] [address] AST [Catalytic activity/Vol] 23 U/L Normal 15 - 37 [facility] Comment on above: Performed By: #### 2 99749 #### [facility],[address] [place] [address] B/C RATIO 25 ratio Normal 0 - 30 [facility] Comment on above: Performed By: #### 2 35968 #### [facility],[address] [place] [address] 63825 Bilirubin [Mass/Vol] 0.8 mg/dL Normal 0.2 - 1.0 [facility] Comment on above: Performed By: #### 2 61451 #### [facility],[address] [place] [address] 48062 Calcium [Mass/Vol] 8.8 mg/dL Normal 8.5 - 10.1 [facility] Comment on above: Performed By: #### 2 46541 #### [facility],[address] [place] [address] 58964 Chloride [Moles/Vol] 96 mmol/L Low 98 - 107 [facility] Comment on above: Performed By: #### 2 57401 #### [facility],[address] [place] [address] 01155 CMP with eGFR Normal [facility] Comment on above: Result Comment: COMP REHENSIVE METABOLIC PANEL Performed By: #### 2 08940 #### [facility],[address] [place] [address] 99571 CO2 [Moles/Vol] 25.6 mmol/L Normal 21.0 - 32.0 [facility] Comment on above: Performed By: #### 2 93991 #### [place] [id number] Creatinine [Mass/Vol] 1.16 mg/dL Normal 0.70 - 1.30 [facility] Comment on above: Performed By: #### 2 95634 #### [facility],[address] [place] [address] 19094 eGFR 60 ML/MINUTE Normal 60 - 999 [facility] Comment on above: Performed By: #### 2 58617 #### [place] [id number] GFR/1.73 sq M.predicted among non-blacks MDRD (S/P/Bld) [Vol rate/Area] mL/min/{1.73_m2} Normal 60 - 999 [facility] Comment on above: Result Comment: ACCO RDING TO THE NATIONAL KIDNEY DISEASE EDUCATION PROGRAM(NKDE), A NORMAL eGFR IS A VALUE GREATER THAN OR EQUAL TO 60 ML/MIN/1.73 SQ METERS. CHRONIC KIDNEY DISEASE: <60mL/MIN/1.73 SQ METERS KIDNEY FAILURE: <15mL/MIN/1.73 SQ METERS THIS TEST SHOULD ONLY BE USED FOR PATIENTS 18 YEARS OF AGE AND OLDER. Performed By: #### 2 69078 #### [facility],[address] [place] [address] 49459 Globulin (S) [Mass/Vol] 3.3 g/dL Normal 1.5 - 3.8 [facility] Comment on above: Performed By: #### 2 40519 #### [address] [address] Glucose [Mass/Vol] 106 mg/dL Normal 74 - 106 [facility] Comment on above: Performed By: #### 2 76089 #### [facility],[address] [place] [address] Potassium [Moles/Vol] 4.0 mmol/L Normal 3.5 - 5.1 [facility] Comment on above: Performed By: #### 2 63452 #### [facility],[address] [place] [address] Protein [Mass/Vol] 6.2 g/dL Low 6.4 - 8.2 [facility] Comment on above: Performed By: #### 2 34437 #### [facility],[address] [place] [address] Sodium [Moles/Vol] 130 mmol/L Low 136 - 145 [facility] Comment on above: Performed By: #### 2 59665 #### [facility],[address] [place] [address] Urea nitrogen [Mass/Vol] 29 mg/dL High 7 - 18 [facility] Comment on above: Performed By: #### 2 79364 #### [facility],[address] [place] [address] CORONAVIRUS (SARS) ANTIGEN T ESTon 07-25-2025 EXTERNAL QC DONE? YES Normal [facility] Comment on above: Performed By: #### 2 43866 #### [facility],[address] [place] [address] INTERNAL CONTROL PASS Normal [facility] Comment on above: Performed By: #### 2 79999 #### [facility],[address] [place] [address] SARS ANTIGEN Negative Normal NORMAL: NEGATIVE [facility] Comment on above: Performed By: #### 2 66751 #### [facility],[address] [place] [address] SEND TO ? NO Normal [facility] Comment on above: Result Comment: SARS -CoV-2 THIS TEST IS BEING USED UNDER THE FDA EUA PROCEDURE. THIS ASSAY HAS BEEN VALIDATED AT [facility] FOR USE WITH NASAL AND NASOPHARYNGEAL SWAB SPECIMENS. INTERPRETIVE DATA TEST RESULTS SHOULD ALWAYS BE CONSIDERED IN THE CONTEXT OF CLINICAL OBSERVATIONS AND EPIDEMIOLOGICAL DATA IN MAKING FINAL DIAGNOSIS AND PATIENT MANAGEMENT DECISIONS. PATIENT MANAGEMENT SHOULD FOLLOW CURRENT CDC GUIDELINES. THE MUNIR SARS ANTIGEN NIKKI DOES NOT DIFFERENTIATE BETWEEN SARS-CoV & SARS-CoV-2. A POSITIVE TEST RESULT INDICATES THE PRESENCE OF SARS-CoV-2 NUCLEOCAPSID PROTEIN ANTIGEN, AND THE PATIENT IS INFECTED WITH THE VIRUS AND PRESUMED TO BE CONTAGIOUS. A NEGATIVE TEST RESULT FOR THIS TEST MEANS THAT SARS-CoV-2 NUCLEOCAPSID PROTEIN ANTIGEN WAS NOT PRESENT IN THE SPECIMEN ABOVE THE LIMIT OF DETECTION. HOWEVER, A NEGATIVE RESULT DOES NOT RULE OUT COVID-19 AND SHOULD NOT BE USED THE SOLE BASIS FOR TREATMENT OR PATIENT MANAGEMENT DECISIONS. A NEGATIVE RESULT DOES NOT EXCLUDE THE POSSIBILITY OF COVID-19. NEGATIVE RESULTS, FROM PATIENTS WITH SYMPTOM ONSET BEYOND FIVE DAYS, SHOULD BE TREATED PRESUMPTIVE AND CONFIRMATION WITH A MOLECULAR ASSAY, IF NECESSARY, FOR PATIENT MANAGEMENT, MAY BE PERFORMED. WHEN DIAGNOSTIC TESTING IS NEGATIVE, THE POSSIBLILTY OF A FALSE NEGATIVE RESULT SHOULD BE CONSIDERED IN THE CONTEXT OF A PATIENT'S RECENT EXPOSURES AND THE PRESENCE OF CLINICAL SIGNS AND SYMPTOMS CONSISTENT WITH COVID-19. THE POSSIBILITY OF A FALSE NEGATIVE RESULT SHOULD ESPECIALLY BE CONSIDERED IF THE PATIENT'S RECENT EXPOSURES OR CLINICAL PRESENTATION INDICATE THAT COVID-19 IS LIKELY, AND DIAGNOSTIC TESTS FOR OTHER CAUSES OF ILLNESS (e.g., OTHER RESPIRATORY ILLNESS) ARE NEGATIVE. IF COVID-19 IS STILL SUSPECTED BASED ON EXPOSURE HISTORY TOGETHER WITH OTHER CLINICAL FINDINGS, RE-TESTING SHOULD BE CONSIDERED BY HEALTHCARE PROVIDERS IN CONSULTATION WITH PUBLIC HEALTH AUTHORITIES. Performed By: #### 2 10728 #### [facility],[address] [place], [place] [id number] CT BRAIN W/O CONTRASTon 11-0 CT BRAIN W/O CONTRAST [address] ? [place], [place] [address] ? Patient: SABIHA WEBBER Phone#: : 1940 Age: 84 Gender: M Pt. Type: ER Account: [id number] Location: 052 Ordering: DR. MADHAVI HARRISONDAJENISE Exam Date: 07/25/2025/9:50 Family Phys: VIRGIE SHAYURSZULA Charge Code: [id number] Physician: [place] Order #: [id number] Dose#: 52.3 mGy PROCEDURE: CT BRAIN WITHOUT CONTRAST COMPARISON: [facility], CT, BRAIN W/O CON, 07/03/2022, 17:58. INDICATIONS: Trauma. TECHNIQUE: CT images were obtained without contrast material. All CT scans at this facility use dose modulation, iterative reconstruction, and/or weight based dosing when appropriate to reduce radiation dose to as low as reasonably achievable. IV CONTRAST: No IV contrast used,0ml TOTAL DOSE: 52.3 CTDIvol(mGy) FINDINGS: CEREBRUM: Age-appropriate atrophy is present, without visible acute hemorrhage or lesion. CEREBELLUM: No edema, hemorrhage, mass, acute infarction, or inappropriate atrophy. BRAINSTEM: No edema, hemorrhage, mass, acute infarction, or inappropriate atrophy. CSF SPACES: Ventricles, cisterns, and sulci are appropriate for age. No hydrocephalus, subarachnoid hemorrhage, or mass. SKULL: No mass or other significant visible lesion. SINUSES: Mucosal thickening is present in the ethmoid and sphenoid sinuses. ORBITS: Limited views are unremarkable. OTHER: Negative. CONCLUSION: 1. There is no evidence of acute intracranial abnormality. Dictated by: Luly Zambrano MD on 07/25/2025 at 10:26 Approved by: Luly Zambrano MD on 07/25/2025 at 10:34 Normal [facility] CT CHEST (PE PROTOCOL)on CT CHEST (PE PROTOCOL) [address] ? [place] [address] ? Patient: SABIHA WEBBER Phone#: : 1940 Age: 84 Gender: M Pt. Type: ER Account: [id number] Location: 052 Ordering: DR. MADHAVI SYED Exam Date: 07/25/2025/11:59 Family Phys: VIRGIE GILBERTSTEFFEN Charge Code: [id number] Physician: [place] Order #: [id number] Dose#: 5.3 mGy PROCEDURE: CT CHEST WITH CONTRAST FOR PE COMPARISON: [facility], CT, CHEST W/O CON, 07/25/2025, 9:54. INDICATIONS: Chest pain. TECHNIQUE: After obtaining the patient's consent, CT images were obtained with non-ionic intravenous contrast material. Multi-planar images were created to optimize visualization of vascular anatomy with MPR/MIPS and 3D imaging. All CT scans at this facility use dose modulation, iterative reconstruction, and/or weight based dosing when appropriate to reduce radiation dose to as low as reasonably achievable. IV CONTRAST: Omnipaque 350,100ml TOTAL DOSE: 5.3 CTDIvol(mGy) FINDINGS: VASCULATURE: Normal. No visible pulmonary arterial thrombus or attenuation. AORTA: Calcification is present without aneurysmal dilatation. There is extensive calcification of the left subclavian artery. 3 centimeter filling defect is present initially demonstrated at 11 millimeters beyond the origin. There is reconstitution at approximately 4.3 centimeters from the origin. LUNGS: Normal. No visible pulmonary disease. PRO: Normal. No mass or adenopathy. MEDIASTINUM: Normal. No mass or adenopathy. CARDIAC: Trace pericardial effusion. Coronary artery calcification is present. PLEURA: Normal. No mass or effusion. CHEST WALL: Normal. No mass or axillary adenopathy. LIMITED ABDOMEN: Peripelvic renal cysts are present. BONES: Normal. No bony lesion or fracture. OTHER: Mixed plaque is present at the carotid bulb bilaterally. There is approximately 50% stenosis at the right carotid bulb and origin of the right internal carotid artery. Continued Report - Page 2 of 2 Patient: AKBAR SABIHA D. Phone#: : 1940 Age: 84 Gender: M Pt. Type: ER Account: [id number] Location: 2 Ordering: DR. MADHAVI SYED Exam Date: 07/25/2025/11:59 Family Phys: VIRGIE GAMBOA Charge Code: [id number] Physician: [place] Order #: [id number] Dose#: 5.3 mGy CONCLUSION: 1. There is no evidence of pulmonary embolus. 2. There is no evidence of acute pulmonary abnormality. 3. Hard plaque is present at the carotid bulb bilaterally. There is proximally 50% stenosis at the right bulb. 4. There is extensive dense calcification of the left subclavian artery. Filling defect is seen 11 millimeters beyond the origin with reconstitution at 4.3 centimeters. Similar finding is not seen on prior exam of July 03, 2022. Age of filling defect is uncertain. Dictated by: Luly Zambrano MD on 07/25/2025 at 12:33 Approved by: Luly Zambrano MD on 07/25/2025 at 12:52 Normal [facility] CT CHEST W/O CONTRASTon 11-0 CT CHEST W/O CONTRAST [address] ? [place] [address] ? Patient: SABIHA WEBBER Phone#: : 1940 Age: 84 Gender: M Pt. Type: ER Account: [id number] Location: [facility] Ordering: DR. MADHAVI SYED Exam Date: 07/25/2025/9:54 Family Phys: VIRGIE GILBERTSTEFFEN Charge Code: [id number] Physician: [place] Order #: [id number] Dose#: 4.1 mGy PROCEDURE: CT CHEST WITHOUT CONTRAST COMPARISON: [facility], CT, CHEST/ABDOMEN/PELVIS W CON, 07/03/2022, 18:13. INDICATIONS: Trauma. TECHNIQUE: CT images were created without the administration of contrast material. All CT scans at this facility use dose modulation, iterative reconstruction, and/or weight based dosing when appropriate to reduce radiation dose to as low as reasonably achievable. IV CONTRAST: No IV contrast used,0ml TOTAL DOSE: 4.1 CTDIvol(mGy) FINDINGS: LUNGS: The lungs are hyperinflated. No visible pulmonary disease. VASCULATURE: Normal. Thrombus cannot be excluded without intravenous contrast. PRO: Normal. No mass or adenopathy. MEDIASTINUM: Normal. No mass or adenopathy. CARDIAC: Coronary artery calcification is present. Trace pericardial effusion is present. PLEURA: Normal. No mass or effusion. AORTA: Aortic calcification is present without aneurysmal dilatation. CHEST WALL: Normal. No mass or axillary adenopathy. LIMITED ABDOMEN: Nonobstructing 5 millimeter left renal calculus. BONES: Healed left rib fractures unchanged from prior exam. Possible osseous hemangioma at T8 unchanged from previous exam. OTHER: Negative. CONCLUSION: 1. There is no evidence of acute thoracic abnormality. 2. COPD. 3. Remote healed left rib fracture. Continued Report - Page 2 of 2 Patient: SABIHA WEBBER Phone#: : 1940 Age: 84 Gender: M Pt. Type: ER Account: [id number] Location: [facility] Ordering: DR. MADHAVI SYED Exam Date: 07/25/2025/9:54 Family Phys: VIRGIE GAMBOA Charge Code: [id number] Physician: [place] Order #: [id number] Dose#: 4.1 mGy Dictated by: Luly Zambrano MD on 07/25/2025 at 10:35 Approved by: Luly Zambrano MD on 07/25/2025 at 10:44 Normal [facility] D-DIMER, QUANTITATIVEon 11-0 D-DIMER QUANT 1013 ng/ml High 0 - 230 [facility] Comment on above: Performed By: #### 2 64921 ####[facility],[address] [place], [place] [id number] D-DIMER, QUANTITATIVE Normal [facility] Comment on above: Result Comment: [place] T D-DIMER Performed By: #### 2 19486 ####[facility],[address] [place], [place] [id number] INFLUENZA VIRUS RAPID A/Bon 07-25-2025 INFLUENZA VIRUS RAPID A/B INFLUENZA A NEGATIVE INFLUENZA B NEGATIVE INTERNAL NEG QC PASS INTERNAL POS QC PASS EXTERNAL QC DONE? YES SEND TO IC? NO A NEGATIVE TEST RESULT DOES NOT EXCLUDE INFECTION WITH INFLUENZA A OR B. THEREFORE, THE RESULTS OBTAINED FROM THIS FLU TEST SHOULD BE USED IN CONJUCTION WITH CLINICAL FINDINGS TO MAKE AN ACCURATE DIAGNOSIS. A POSITIVE RESULT DOES NOT RULE OUT CO-INFECTIONS WITH OTHER PATHOGENS OR IDENTIFY ANY SPECIFIC INFLUENZA A VIRUS SUBTYPE.CO-INFECTION WITH INFLUENZA A AND B IS RARE. IT IS RECOMMENDED THAT DUAL POSITIVE RESULTS BE CONFIRMED BY VIRAL CULTURE OR AN FDA-CLEARED INFLUENZA A AND B MOLECULAR ASSAY. INDIVIDUALS WHO HAVE RECEIVED NASALLY ADMINISTERED INFLUENZA A VACCINE MAY TEST POSITIVE IN COMMERCIALLY AVAILABLE INFLUENZA RAPID DIAGNOSTIC TESTS FOR UP TO THREE DAYS. Normal [facility] Comment on above: Performed By: #### 2 96820 ####[facility],[address] [place] [address] 47502 LACTATEon 07-25-2025 Lactate [Moles/Vol] 1.7 mmol/L Normal 0.4 - 2.0 [facility] Comment on above: Performed By: #### 2 16807 #### [facility],[address] [place] [address] 66497 NT-proBNPon 07-25-2025 Natriuretic peptide B (Bld) [Mass/Vol] 316 pg/mL Normal 0 - 450 [facility] Comment on above: Performed By: #### 2 71773 ####[facility],[address] [place] [address] 17171 TROPONINon 07-25-2025 HS TROPONIN 24.5 pg/mL Normal 0.0 - 76.2 [facility] Comment on above: Performed By: #### 2 53210 #### [facility],[address] [place] [address] 14084 URINALYSISon 07-25-2025 Amorphous NONE Normal [facility] Comment on above: Performed By: #### 2 48756 #### [facility],[address] [place] [address] 97491 Bacteria NONE Normal [facility] Comment on above: Performed By: #### 2 63398 #### [facility],[address] [place] [address] 48830 Bilirubin Ql (U) Negative Normal NORMAL: NEGATIVE [facility] Comment on above: Performed By: #### 2 89609 #### [facility],[address] [place] [address] 99977 Casts NONE Normal [facility] Comment on above: Performed By: #### 2 88928 #### [facility],[address] [place] [address] Clarity (U) clear Normal NORMAL: CLEAR [facility] Comment on above: Performed By: #### 2 75373 #### [facility],[address] [place], [place] [address] Color (U) yellow Normal NORMAL: YELLOW [facility] Comment on above: Performed By: #### 2 15587 #### [facility],[address] [place], [place] [address] Crystals LM Nom (Urine sed) NONE Normal [facility] Comment on above: Performed By: #### 2 81832 #### [facility],[address] [place] [address] Epi Cells NONE Normal [facility] Comment on above: Performed By: #### 2 68207 #### [facility],[address] [place], [place] [address] Glucose Ql (U) NORM Normal NORMAL: NORMAL [facility] Comment on above: Performed By: #### 2 94204 #### [facility],[address] [place] [address] 75949 Hemoglobin Ql (U) 10 Abnormal NORMAL: NEGATIVE [facility] Comment on above: Performed By: #### 2 99411 #### [facility],[address] [place] [address] 59194 Ketone Negative Normal NORMAL: NEGATIVE [facility] Comment on above: Performed By: #### 2 01356 #### [facility],[address] [place] [address] 35437 Leukocytes Negative Normal NORMAL: NEGATIVE [facility] Comment on above: Performed By: #### 2 04979 #### [facility],[address] [place] [address] 07126 Mucous NONE Normal [facility] Comment on above: Performed By: #### 2 01819 #### [facility],[address] [place] [address] 70432 Nitrite Ql (U) Negative Normal NORMAL: NEGATIVE [facility] Comment on above: Performed By: #### 2 48508 #### [facility],[address] [place] [address] pH (U) 5 [pH] Normal NORMAL: 5.0-8.0 [facility] Comment on above: Performed By: #### 2 80220 #### [facility],[address] [place] [address] Protein Ql (U) 30 Abnormal NORMAL: NEGATIVE [facility] Comment on above: Performed By: #### 2 83148 #### [facility],[address] [place] [address] Rbc 0-5 Normal 0-3/hpf [facility] Comment on above: Performed By: #### 2 92671 #### [facility],[address] [place] [address] Sp [place] 1.015 Normal NORMAL: 1.010-1.030 [facility] Comment on above: Performed By: #### 2 05109 #### [facility],[address] [place] [address] Specimen Type R Normal [facility] Comment on above: Performed By: #### 2 69200 #### [facility],[address] [place] [address] Urinalysis dipstick W Reflex Microscopic panel (U) SEE BELOW Normal [facility] Comment on above: Result Comment: MICR OSCOPIC Performed By: #### 2 34198 #### [facility],[address] [place] [address] Urobilinog NORM Normal NORMAL: NORMAL [facility] Comment on above: Performed By: #### 2 59686 #### [facility],[address] [place] [address] Wbc NONE Normal 0-5/hpf [facility] Comment on above: Performed By: #### 2 66789 #### [facility],[address] [place] [address] 08633 Yeast NONE Normal [facility] Comment on above: Performed By: #### 2 99274 #### [facility],[address] [place], [place] [id number] CBC + DIFFon 07-01-2025 Baso # 0.02 x10EE3/UL Normal 0.00 - 0.10 [facility] Comment on above: Performed By: #### 2 12531 #### [facility],[address] [place] [address] 11030 Basophils/100 WBC (Bld) 0.3 % Normal 0.0 - 2.0 [facility] Comment on above: Performed By: #### 2 09799 #### [facility],[address] [place] [address] CBC + DIFF Normal [facility] Comment on above: Result Comment: CBC- COMPLETE BLOOD COUNT Performed By: #### 2 58303 #### [facility],[address] [place] [address] EO # 0.06 x10EE3/UL Normal 0.00 - 0.50 [facility] Comment on above: Performed By: #### 2 21557 #### [facility],[address] [place], [place] [address] Eosinophils/100 WBC (Bld) 0.8 % Normal 0.0 - 7.0 [facility] Comment on above: Performed By: #### 2 44338 #### [facility],[address] [place] [address] Erythrocyte distribution width (RBC) [Ratio] 13.1 % Normal 12.0 - 15.6 [facility] Comment on above: Performed By: #### 2 83145 #### [facility],[address] [place] [address] Hematocrit (Bld) [Volume fraction] 43.0 % Normal 40.0 - 52.0 [facility] Comment on above: Performed By: #### 2 68444 #### [facility],[address] [place] [address] 15848 Hemoglobin (Bld) [Mass/Vol] 14.5 g/dL Normal 13.0 - 17.5 [facility] Comment on above: Performed By: #### 2 28348 #### [facility],[address] [place] [address] 93425 Lymph # 0.74 x10EE3/UL Low 0.80 - 2.80 [facility] Comment on above: Performed By: #### 2 66056 #### [facility],[address] [place] [address] 42860 Lymphocytes/100 WBC (Bld) 9.2 % Low 20.0 - 45.0 [facility] Comment on above: Performed By: #### 2 71430 #### [facility],[address] [place] [address] 58458 MANUAL DIFF N/A Normal [facility] Comment on above: Performed By: #### 2 47140 #### [facility],[address] [place] [address] 03979 MCH (RBC) [Entitic mass] 34 pg High 27 - 33 [facility] Comment on above: Performed By: #### 2 48831 #### [facility],[address] [place] [address] 94700 MCHC 34 X10 3 Normal 32 - 36 [facility] Comment on above: Performed By: #### 2 72295 #### [facility],[address] [place] [address] 95746 MCV (RBC) [Entitic vol] 100 fL High 81 - 98 [facility] Comment on above: Performed By: #### 2 14865 #### [facility],[address] [place] [address] 89494 [place] # 0.68 x10EE3/UL Normal 0.20 - 1.00 [facility] Comment on above: Performed By: #### 2 78263 #### [facility],[address] [place] [address] 54506 MONOS % 8.4 % Normal 0.0 - 10.0 [facility] Comment on above: Performed By: #### 2 07332 #### [facility],[address] [place] [address] 09719 Morphology Yao (Bld) [Interp] N/A Normal [facility] Comment on above: Performed By: #### 2 41364 #### [facility],[address] [place] [address] 75234 Neut # 6.57 x10EE3/UL Normal 1.50 - 7.10 [facility] Comment on above: Performed By: #### 2 10122 #### [facility],[address] [place] [address] 36698 Neutrophils/100 WBC (Bld) 81.4 % High 46.0 - 76.0 [facility] Comment on above: Performed By: #### 2 79236 #### [facility],[address] [place] [address] 64330 PLATELET 168 x10EE3/UL Normal 150 - 450 [facility] Comment on above: Performed By: #### 2 71807 #### [facility],[address] [place] [address] 33342 Platelet mean volume (Bld) [Entitic vol] 8.7 fL Normal 6.4 - 10.5 [facility] Comment on above: Result Comment: AUTO MATED DIFFERENTIAL Performed By: #### 2 92272 #### [facility],[address] [place] [address] 77858 RBC 4.29 x 10EE6/UL Low 4.50 - 6.00 [facility] Comment on above: Performed By: #### 2 09291 #### [facility],[address] [place] [address] 06389 WBC 8.1 x 10EE3/UL Normal 4.5 - 10.8 [facility] Comment on above: Performed By: #### 2 17696 #### [facility],[address] [place] [address] 49307 CMP with eGFRon 07-01-2025 AGE 84 years Normal [facility] Comment on above: Performed By: #### 2 07108 ####[facility],[address] [place] [address] 19532 Albumin [Mass/Vol] 3.3 g/dL Low 3.4 - 5.0 [facility] Comment on above: Performed By: #### 2 13718 ####[facility],[address] [place] [address] 73537 Albumin/Globulin [Mass ratio] 1.1 {ratio} Normal 0.9 - 1.6 [facility] Comment on above: Performed By: #### 2 92278 ####[facility],[address] [place] [address] 50865 ALK PHOS 119 U/L High 46 - 116 [facility] Comment on above: Performed By: #### 2 45960 ####[facility],[address] [place] [address] 69233 ALT [Catalytic activity/Vol] 26 U/L Normal 16 - 63 [facility] Comment on above: Performed By: #### 2 34212 ####[facility],[address] [place] [address] 40642 Anion gap [Moles/Vol] 9 mmol/L Low 10 - 20 [facility] Comment on above: Performed By: #### 2 75532 ####[facility],[address] [place] [address] 34649 AST [Catalytic activity/Vol] 20 U/L Normal 15 - 37 [facility] Comment on above: Performed By: #### 2 58157 ####[facility],[address] [place] [address] 14715 B/C RATIO 24 ratio Normal 0 - 30 [facility] Comment on above: Performed By: #### 2 70892 ####[facility],[address] [place] [address] 54462 Bilirubin [Mass/Vol] 0.8 mg/dL Normal 0.2 - 1.0 [facility] Comment on above: Performed By: #### 2 44006 ####[facility],[address] [place] [address] 81033 Calcium [Mass/Vol] 9.1 mg/dL Normal 8.5 - 10.1 [facility] Comment on above: Performed By: #### 2 21697 ####[facility],[address] [place] [address] 32576 Chloride [Moles/Vol] 106 mmol/L Normal 98 - 107 [facility] Comment on above: Performed By: #### 2 33799 ####[facility],[address] [place], [place] [address] CMP with eGFR Normal [facility] Comment on above: Result Comment: COMP REHENSIVE METABOLIC PANEL Performed By: #### 2 60167 ####[facility],[address] [place] [address] 11715 CO2 [Moles/Vol] 29.2 mmol/L Normal 21.0 - 32.0 [facility] Comment on above: Performed By: #### 2 11401 ####[facility],[address] [place] [address] 95450 Creatinine [Mass/Vol] 0.87 mg/dL Normal 0.70 - 1.30 [facility] Comment on above: Performed By: #### 2 03948 ####[facility],[address] [place] [address] 60432 GFR/1.73 sq M.predicted among non-blacks MDRD (S/P/Bld) [Vol rate/Area] mL/min/{1.73_m2} Normal 60 - 999 [facility] Comment on above: Performed By: #### 2 69567 ####[facility],[address] [place] [address] Result Comment: ACCO RDING TO THE NATIONAL KIDNEY DISEASE EDUCATION PROGRAM(NKDE), A NORMAL eGFR IS A VALUE GREATER THAN OR EQUAL TO 60 ML/MIN/1.73 SQ METERS. CHRONIC KIDNEY DISEASE: <60mL/MIN/1.73 SQ METERS KIDNEY FAILURE: <15mL/MIN/1.73 SQ METERS THIS TEST SHOULD ONLY BE USED FOR PATIENTS 18 YEARS OF AGE AND OLDER. Globulin (S) [Mass/Vol] 3.1 g/dL Normal 1.5 - 3.8 [facility] Comment on above: Performed By: #### 2 59275 ####[place] [address] Glucose [Mass/Vol] 92 mg/dL Normal 74 - 106 [facility] Comment on above: Performed By: #### 2 47585 ####[facility],[address] [place] [address] Potassium [Moles/Vol] 4.6 mmol/L Normal 3.5 - 5.1 [facility] Comment on above: Performed By: #### 2 96244 ####[facility],[address] [place], [place] [address] Protein [Mass/Vol] 6.4 g/dL Normal 6.4 - 8.2 [facility] Comment on above: Performed By: #### 2 52439 ####[facility],[address] [place] [address] 26590 Sodium [Moles/Vol] 140 mmol/L Normal 136 - 145 [facility] Comment on above: Performed By: #### 2 68562 ####[address] [address] Urea nitrogen [Mass/Vol] 21 mg/dL High 7 - 18 [facility] Comment on above: Performed By: #### 2 48087 ####[facility],[address] [place] [address] 38865 LIPID PROFILEon 07-01-2025 Cholesterol [Mass/Vol] 104 mg/dL Normal 0 - 240 [facility] Comment on above: Performed By: #### 2 57299 ####[facility],[address] [place] [address] 86602 Cholesterol in HDL [Mass/Vol] 60 mg/dL Normal 40 - 60 [facility] Comment on above: Performed By: #### 2 26653 ####[facility],[address] [place] [address] 83874 Cholesterol in LDL [Mass/Vol] 40 mg/dL Normal 0 - 129 [facility] Comment on above: Performed By: #### 2 35791 ####[facility],[address] [place] [address] 61318 Cholesterol.total/Beatrice sterol in HDL [Mass ratio] 1.7 {ratio} Normal 0.0 - 5.0 [facility] Comment on above: Performed By: #### 2 80510 ####[facility],[address] [place] [address] 84237 Lipid 1996 panel Normal [facility] Comment on above: Result Comment: LIPI D PROFILE Performed By: #### 2 36449 ####[facility],[address] [place] [address] 99840 Triglyceride [Mass/Vol] 22 mg/dL Normal 0 - 150 [facility] Comment on above: Performed By: #### 2 42096 ####[facility],[address] [place] [address] 68762 MR/BMS.Ancelmo 06-09-2025 MR/BMS.[facility] Surgery [address] [place] [address]. [address] [place] [address] [id number] OFFICE VISIT Date of Service: 06/09/25 MR#: [id number] Acct: [id number] Name: SABIHA WEBBER Rep #: [id number] : 1940 Provider: Dr. Blake Gonzalez MD Age/Sex: 84/M Location: [facility] Status: Signed Intake Vital Signs 06/09/25 16:10 Weight: 135 lb BP 144/79 H Blood Pressure Location Rt brachial Position Sitting Respiration 16 Pulse 86 Pulse Source Monitor Temp 98.2 F Temp Source Temporal Pulse Oximetry (%) 95 Oxygen Delivery Method room air Intake Visit Reasons: 1 YR F/U Chief Complaint: establish care. Is patient in pain?: Yes Allergies No Known Allergies Allergy (Verified 06/09/25 16:08) Medications ???Medication ???Instructions ???Recorded ???Confirmed ???Type acetaminophen 650 mg 650 mg PO Q8H PRN pain 02/25/23 History tablet,extended release (Tylenol Arthritis Pain) folic acid 1 mg tablet 1 mg PO BID 02/25/23 06/09/25 Hist ory latanoprost 0.005 % eye drops 1 drp ophthalmic (eye) QPM 3 06/09/25 History methotrexate sodium 2.5 mg tablet 12.5 mg PO QWEEK 02/25/23 5 History atorvastatin 40 mg tablet 40 mg PO QHS #30 tabs 12/08/24 Rx lutein 20 mg capsule 20 mg PO QDAY 06/09/25 06/09/25 Hi story tamsulosin 0.4 mg capsule 0.4 mg PO QDAY 06/09/25 06/09/25 H istory Have you fallen in the past year?: Yes PFSH Medical History Tobacco dependence Elevated serum creatinine Situational depression Rheumatoid arteritis HTN (hypertension) Glaucoma Benign prostatic hyperplasia Subclavian arterial stenosis Surgical History History of prostate surgery ( 2016) H/O inguinal hernia repair ( 2010) H/O cataract extraction ( 2015) Family History Father Myocardial infarction Mother CVA (cerebral vascular accident) Brother Cancer lung ca. Sister COPD (chronic obstructive pulmonary disease) Sister Dementia Other Sudden cardiac Social History Smoking Status: Current some day smoker HPI HPI HPI: SABIHA WEBBER, is a 84 M who presents to the office today for yearly follow up of bilateral carotid stenosis, R>L. He has been doing well overall since his last visit with no new medical concerns or events. He denies numbness/weakness/vi cha loss/speech difficulty. He has been slowing down in general this past year, less active and just not as energetic/strong as before. ROS General General: Yes fatigue and weakness (legs); No weight change, appetite, colon cancer or breast cancer HEENT HEENT: Yes difficulty swallowing; No eye injury, eye surgery, swollen glands or hoarseness Endo Endocrine: No thyroid disease, diabetes mellitus, thyroid cancer, Hair loss, heat intolerance or cold intolerance Skin Skin: No rash or changing moles Musc Musculoskeletal: Yes back problems, arthritis, rheumatoid arthritis and joint pain; No gout Cardio Cardiovascular: Yes high blood pressure; No murmur, pacemaker, heart disease, atrial fibrillation, heart attack, heart stent, palpitations, shortness of breath with exertion or chest pain Psych Psychiatric: Yes depression; No anxiety or hearing voices Resp Respiratory: Yes shortness of breath, No sleep apnea, No cough, No COPD, No asthma, No emphysema and No wheezing Gastro Gastrointestinal: No abdominal pain, No nausea or vomiting, No diarrhea, No constipation, No blood in stool, Yes acid reflux, No hemorrhoids, No ulcers, No gallbladder problem and No black,tarry stools Mina Hematologic: No blood thinners, No blood disorders, No bleeding, No anemia and No blood clots Neuro Neurologic: No system reviewed and no additional complaints, except as documented, No as per HPI, No abnormal gait, No abnormal hearing, No abnormal movements, No abnormal speech, No behavioral changes, No burning sensations, Yes confusion, No convulsions, Yes disequilibrium, Yes dizziness, No localized weakness, No frequent falls, No headache(s), No lack of coordination, No loss of vision, No memory loss, Yes numbness, Yes other visual disturbances, No radicular pain, No restless legs, No sensory deficit, No syncope, Yes tingling, Yes tremor(s), Yes weakness (legs) and No other Exam Const General: cooperative, healthy appearing, comfortable, no acute distress and well developed Nutritional Appearance: well nourished Orientation: alert, awake and oriented x3 HENMT Head: normocephalic and atraumatic Ears: hearing grossly normal bilaterally Nose: external nose nor (more content not included)... Normal [facility] Carotid Duplex Ultrasoundon 04-26-2025 Carotid Duplex Ultrasound [facility] [place] [address] [place] [address] Carotid Duplex Ultrasound 04/26/25 1255 MR#: [id number] Acct: [id number] Name: SABIHA WEBBER Rep #: [id number] : 1940 84 From: Blake Gonzalez MD Attending Dr: TATY Maciel Status: REG CLI Ordering Dr: Reanna Diaz Date: 04/26/25 Location: [facility] Sex: M C Admitted: Reason For Study Reason For Study: Right ICA stenosis Rt. Velocities/BP Lt. Velocities/BP Prox CCA 77.8/11.6 cm/sec. Prox CCA 140.7/13.7 cm/sec. Mid CCA 69.2/12.6 cm/sec. Mid CCA 104.5/11.1 cm/sec. Dist CCA 76.8/13.5 cm/sec. Dist CCA 103.8/11.6 cm/sec. Prox ICA 213.3/47.7 cm/sec. Prox ICA 123.6/18.2 cm/sec. Mid ICA 97.2/22.6 cm/sec. Mid ICA 88.8/20 cm/sec. Dist ICA 114.8/22.6 cm/sec. Dist ICA 81.4/18.8 cm/sec. Rt. ICA/CCA = 3.08. Lt. ICA/CCA = 1.18. Prox ECA 187.4/8.6 cm/sec. Prox ECA 163.1 cm/sec. Rt. Vert. 88.5/16 cm/sec. Right Extracranial There is heterogeneous, irregular [...] external carotid artery. Retrograde flow noted in the left vertebral artery. Procedure Carotid Duplex 94180. This is a Carotid Duplex examination using B-mode, color flow and specral Doppler. Exam performed in department. VL/Carotid Duplex Ultrasound Interpretation Summary Moderate (50-69%) stenosis right extracranial internal carotid. Limited due to calcific shadowing. Mild (<50%) stenosis left extracranial internal carotid. The Right vertebral is patent and antegrade. The Left vertebral flow is retrograde. Ordering Physician: Reanna Diaz Referring Physician: Cody Delaney Performed By: Hoa Teague Israel 04/26/25 1608 Date Blake Gonzalez MD CC: TATY Maciel; No Primary Care Physician Date Dictated: 04/26/25 1255 Date Transcribed: 04/26/25 1608 Cigarette Catcher: Signed Normal [facility] Duplex ultrasound of carotid artery reportOrdered By: Blake Gonzalez on 04-26-2025 Study report [facility] [address] [place] [address] Carotid Duplex Ultrasound 04/26/25 1255 MR#: [id number] Acct: [id number] Name: SABIHA WEBBER Rep #:[id number] : 1940 84 From: Blake Lynn Attending Dr: TATY Maciel Stat us: REG CLI Ordering Dr: Reanna Diaz Date: Location: [facility] Sex: M C Admitted: Reason For Study Reason For Study: Right ICA stenosis Rt. Velocities/BP Lt. Velocities/BP Prox CCA 77.8/11.6 cm/sec. Prox CCA 140.7/13.7 cm/sec. Mid CCA 69.2/12.6 cm/sec. Mid CCA 104.5/11.1 cm/sec. Dist CCA 76.8/13.5 cm/sec. Dist CCA 103.8/11.6 cm/sec. Prox ICA 213.3/47.7 cm/sec. Prox ICA 123.6/18.2 cm/sec. Mid ICA 97.2/22.6 cm/sec. Mid ICA 88.8/20 cm/sec. Dist ICA 114.8/22.6 cm/sec. Dist ICA 81.4/18.8 cm/sec. Rt. ICA/CCA = 3.08. Lt. ICA/CCA = 1.18. Prox ECA 187.4/8.6 cm/sec. Prox ECA 163.1 cm/sec. Rt. Vert. 88.5/16 cm/sec. Right Extracranial There is heterogeneous, irregular [...] external carotid artery. Retrograde flow noted in the left vertebral artery. Procedure Carotid Duplex 75417. This is a Carotid Duplex examination using B-mode, color flow and specral Doppler. Exam performed in department. VL/Carotid Duplex Ultrasound Interpretation Summary Moderate (50-69%) stenosis right extracranial internal carotid. Limited due to calcific shadowing. Mild (<50%) stenosis left extracranial internal carotid. The Right vertebral is patent and antegrade. The Left vertebral flow is retrograde. Ordering Physician: Reanna Diaz Referring Physician: Cody Delaney Performed By: Hoa Teague RVT 04/26/25 1608 Date _ Blake Gonzalez MD CC: TATY Maciel; No Primary Care Physician ~ Date Dictated: 04/26/25 125 Date Transcribed: 04/26/251607 Cigarette Catcher: Signed [facility] Work Phone: CBC + DIFFon 04-08-2025 Baso # 0.02 x10EE3/UL Normal 0.00 - 0.10 [facility] Comment on above: Performed By: #### 2 94636 #### [address] [address] Basophils/100 WBC (Bld) 0.3 % Normal 0.0 - 2.0 [facility] Comment on above: Performed By: #### 2 67343 #### [facility],[address] [place] [address] 22213 CBC + DIFF Normal [facility] Comment on above: Result Comment: CBC- COMPLETE BLOOD COUNT Performed By: #### 2 98159 #### [facility],[address] [place] [address] 66242 EO # 0.07 x10EE3/UL Normal 0.00 - 0.50 [facility] Comment on above: Performed By: #### 2 16399 #### [facility],[address] [place] [address] 81971 Eosinophils/100 WBC (Bld) 1.2 % Normal 0.0 - 7.0 [facility] Comment on above: Performed By: #### 2 31074 #### [facility],[address] [place] [address] Erythrocyte distribution width (RBC) [Ratio] 13.5 % Normal 12.0 - 15.6 [facility] Comment on above: Performed By: #### 2 77824 #### [facility],[address] [place] [address] Hematocrit (Bld) [Volume fraction] 41.4 % Normal 40.0 - 52.0 [facility] Comment on above: Performed By: #### 2 74461 #### [facility],[address] [place] [address] Hemoglobin (Bld) [Mass/Vol] 14.4 g/dL Normal 13.0 - 17.5 [facility] Comment on above: Performed By: #### 2 34225 #### [facility],[address] [place] [address] Lymph # 1.04 x10EE3/UL Normal 0.80 - 2.80 [facility] Comment on above: Performed By: #### 2 07085 #### [facility],[address] [place], [place] [address] Lymphocytes/100 WBC (Bld) 16.9 % Low 20.0 - 45.0 [facility] Comment on above: Performed By: #### 2 15729 #### [facility],[address] [place], [place] [address] MANUAL DIFF N/A Normal [facility] Comment on above: Performed By: #### 2 95223 #### [place] [id number] MCH (RBC) [Entitic mass] 35 pg High 27 - 33 [facility] Comment on above: Performed By: #### 2 82449 #### [place] [address] MCHC 35 X10 3 Normal 32 - 36 [facility] Comment on above: Performed By: #### 2 77610 #### [facility],[address] [place] [address] 88482 MCV (RBC) [Entitic vol] 100 fL High 81 - 98 [facility] Comment on above: Performed By: #### 2 94436 #### [facility],[address] [place] [address] 91560 [place] # 0.66 x10EE3/UL Normal 0.20 - 1.00 [facility] Comment on above: Performed By: #### 2 17007 #### [facility],[address] [place] [address] 63352 MONOS % 10.8 % High 0.0 - 10.0 [facility] Comment on above: Performed By: #### 2 44693 #### [facility],[address] [place], [place] [address] Morphology Yao (Bld) [Interp] N/A Normal [facility] Comment on above: Performed By: #### 2 78217 #### [facility],[address] [place] [address] 60459 Neut # 4.36 x10EE3/UL Normal 1.50 - 7.10 [facility] Comment on above: Performed By: #### 2 91322 #### [facility],[address] [place] [address] 78534 Neutrophils/100 WBC (Bld) 70.8 % Normal 46.0 - 76.0 [facility] Comment on above: Performed By: #### 2 73027 #### [facility],[address] [place] [address] 74616 PLATELET 186 x10EE3/UL Normal 150 - 450 [facility] Comment on above: Performed By: #### 2 75153 #### [facility],[address] [place] [address] 73134 Platelet mean volume (Bld) [Entitic vol] 9.1 fL Normal 6.4 - 10.5 [facility] Comment on above: Result Comment: AUTO MATED DIFFERENTIAL Performed By: #### 2 54051 #### [facility],[address] [place] [address] 76729 RBC 4.14 x 10EE6/UL Low 4.50 - 6.00 [facility] Comment on above: Performed By: #### 2 98149 #### [facility],[address] [place] [address] 97474 WBC 6.2 x 10EE3/UL Normal 4.5 - 10.8 [facility] Comment on above: Performed By: #### 2 09314 #### [facility],[address] [place] [address] 89219 CMP with eGFRon 04-08-2025 AGE 84 years Normal [facility] Comment on above: Performed By: #### 2 16916 ####[facility],[address] [place] [address] 13225 Albumin [Mass/Vol] 3.5 g/dL Normal 3.4 - 5.0 [facility] Comment on above: Performed By: #### 2 91351 ####[facility],[address] [place] [address] 60569 Albumin/Globulin [Mass ratio] 1.0 {ratio} Normal 0.9 - 1.6 [facility] Comment on above: Performed By: #### 2 15707 ####[facility],[address] [place] [address] 01766 ALK PHOS 118 U/L High 46 - 116 [facility] Comment on above: Performed By: #### 2 48177 ####[facility],[address] [place] [address] 61610 ALT [Catalytic activity/Vol] 42 U/L Normal 16 - 63 [facility] Comment on above: Performed By: #### 2 51965 ####[facility],[address] [place] [address] 54953 Anion gap [Moles/Vol] 11 mmol/L Normal 10 - 20 [facility] Comment on above: Performed By: #### 2 04953 ####[facility],[address] [place] [address] 50288 AST [Catalytic activity/Vol] 25 U/L Normal 15 - 37 [facility] Comment on above: Performed By: #### 2 67313 ####[facility],[address] [place] [address] 90216 B/C RATIO 30 ratio Normal 0 - 30 [facility] Comment on above: Performed By: #### 2 44030 ####[facility],[address] [place] [address] 62187 Bilirubin [Mass/Vol] 0.7 mg/dL Normal 0.2 - 1.0 [facility] Comment on above: Performed By: #### 2 88102 ####[facility],[address] [place] [address] 38195 Calcium [Mass/Vol] 9.1 mg/dL Normal 8.5 - 10.1 [facility] Comment on above: Performed By: #### 2 24449 ####[facility],[address] [place] [address] 30530 Chloride [Moles/Vol] 108 mmol/L High 98 - 107 [facility] Comment on above: Performed By: #### 2 76983 ####[facility],[address] [place] [address] 58065 CMP with eGFR Normal [facility] Comment on above: Result Comment: COMP REHENSIVE METABOLIC PANEL Performed By: #### 2 01727 ####[facility],[address] [place] [address] 48068 CO2 [Moles/Vol] 27.3 mmol/L Normal 21.0 - 32.0 [facility] Comment on above: Performed By: #### 2 25745 ####[facility],[address] [place] [address] 88427 Creatinine [Mass/Vol] 1.23 mg/dL Normal 0.70 - 1.30 [facility] Comment on above: Performed By: #### 2 13128 ####[facility],[address] [place] [address] 50541 eGFR 56 ML/MINUTE Low 60 - 999 [facility] Comment on above: Performed By: #### 2 96775 ####[facility],[address] [place] [address] 75115 GFR/1.73 sq M.predicted among non-blacks MDRD (S/P/Bld) [Vol rate/Area] mL/min/{1.73_m2} Normal 60 - 999 [facility] Comment on above: Result Comment: ACCO RDING TO THE NATIONAL KIDNEY DISEASE EDUCATION PROGRAM(NKDE), A NORMAL eGFR IS A VALUE GREATER THAN OR EQUAL TO 60 ML/MIN/1.73 SQ METERS. CHRONIC KIDNEY DISEASE: <60mL/MIN/1.73 SQ METERS KIDNEY FAILURE: <15mL/MIN/1.73 SQ METERS THIS TEST SHOULD ONLY BE USED FOR PATIENTS 18 YEARS OF AGE AND OLDER. Performed By: #### 2 56686 ####[facility],[address] [place] [address] 18335 Globulin (S) [Mass/Vol] 3.6 g/dL Normal 1.5 - 3.8 [facility] Comment on above: Performed By: #### 2 94757 ####[facility],[address] [place] [address] 16568 Glucose [Mass/Vol] 90 mg/dL Normal 74 - 106 [facility] Comment on above: Performed By: #### 2 67567 ####[facility],[address] [place] [address] 02273 Potassium [Moles/Vol] 4.6 mmol/L Normal 3.5 - 5.1 [facility] Comment on above: Performed By: #### 2 48011 ####[facility],[address] [place] [address] 58078 Protein [Mass/Vol] 7.1 g/dL Normal 6.4 - 8.2 [facility] Comment on above: Performed By: #### 2 09363 ####[facility],[address] [place] [address] 79971 Sodium [Moles/Vol] 142 mmol/L Normal 136 - 145 [facility] Comment on above: Performed By: #### 2 00207 ####[facility],[address] [place] [address] 95265 Urea nitrogen [Mass/Vol] 37 mg/dL High 7 - 18 [facility] Comment on above: Performed By: #### 2 82406 ####[facility],[address] [place] [address] 84216 CBC + DIFFon 01-13-2025 Baso # 0.01 x10EE3/UL Normal 0.00 - 0.10 [facility] Comment on above: Performed By: #### 2 59214 ####[facility],[address] [place] [address] 39851 Basophils/100 WBC (Bld) 0.1 % Normal 0.0 - 2.0 [facility] Comment on above: Performed By: #### 2 04274 ####[facility],[address] [place] [address] 13743 CBC + DIFF Normal [facility] Comment on above: Result Comment: CBC- COMPLETE BLOOD COUNT Performed By: #### 2 90898 ####[facility],[address] [place] [address] 44301 EO # 0.03 x10EE3/UL Normal 0.00 - 0.50 [facility] Comment on above: Performed By: #### 2 83433 ####[facility],[address] [place] [address] 53871 Eosinophils/100 WBC (Bld) 0.5 % Normal 0.0 - 7.0 [facility] Comment on above: Performed By: #### 2 72626 ####[facility],[address] [place] [address] Erythrocyte distribution width (RBC) [Ratio] 13.1 % Normal 12.0 - 15.6 [facility] Comment on above: Performed By: #### 2 71470 ####[facility],[address] [place] [address] Hematocrit (Bld) [Volume fraction] 43.0 % Normal 40.0 - 52.0 [facility] Comment on above: Performed By: #### 2 21806 ####[facility],[address] [place] [address] Hemoglobin (Bld) [Mass/Vol] 14.5 g/dL Normal 13.0 - 17.5 [facility] Comment on above: Performed By: #### 2 21138 ####[place] [address] Lymph # 0.87 x10EE3/UL Normal 0.80 - 2.80 [facility] Comment on above: Performed By: #### 2 07257 ####[place] [address] Lymphocytes/100 WBC (Bld) 15.4 % Low 20.0 - 45.0 [facility] Comment on above: Performed By: #### 2 35977 ####[place] [id number] MANUAL DIFF N/A Normal [facility] Comment on above: Performed By: #### 2 26731 ####[place] [id number] MCH (RBC) [Entitic mass] 35 pg High 27 - 33 [facility] Comment on above: Performed By: #### 2 97275 ####[place] 008224 MCHC 34 X10 3 Normal 32 - 36 [facility] Comment on above: Performed By: #### 2 94357 ####[facility],[address] [place] [address] 00271 MCV (RBC) [Entitic vol] 103 fL High 81 - 98 [facility] Comment on above: Performed By: #### 2 78682 ####[facility],[address] [place] [address] 22515 [place] # 0.36 x10EE3/UL Normal 0.20 - 1.00 [facility] Comment on above: Performed By: #### 2 65923 ####[facility],[address] [place] [address] 51215 MONOS % 6.3 % Normal 0.0 - 10.0 [facility] Comment on above: Performed By: #### 2 27476 ####[facility],[address] [place], [place] [id number] Morphology Yao (Bld) [Interp] N/A Normal [facility] Comment on above: Performed By: #### 2 32189 ####[facility],[address] [place], [place] [address] Neut # 4.41 x10EE3/UL Normal 1.50 - 7.10 [facility] Comment on above: Performed By: #### 2 56870 ####[facility],[address] [place] [address] 97676 Neutrophils/100 WBC (Bld) 77.7 % High 46.0 - 76.0 [facility] Comment on above: Performed By: #### 2 62014 ####[facility],[address] [place] [address] 93934 PLATELET 214 x10EE3/UL Normal 150 - 450 [facility] Comment on above: Performed By: #### 2 43734 ####[facility],[address] [place] [address] 81252 Platelet mean volume (Bld) [Entitic vol] 9.1 fL Normal 6.4 - 10.5 [facility] Comment on above: Result Comment: AUTO MATED DIFFERENTIAL Performed By: #### 2 34925 ####[facility],[address] [place] [address] 28155 RBC 4.19 x 10EE6/UL Low 4.50 - 6.00 [facility] Comment on above: Performed By: #### 2 01792 ####[facility],[address] [place] [address] 09445 WBC 5.7 x 10EE3/UL Normal 4.5 - 10.8 [facility] Comment on above: Performed By: #### 2 17272 ####[facility],[address] [place] [address] 95892 CMP with eGFRon 01-13-2025 AGE 84 years Normal [facility] Comment on above: Performed By: #### 2 61662 ####[facility],[address] [place] [address] 72656 Albumin [Mass/Vol] 3.6 g/dL Normal 3.4 - 5.0 [facility] Comment on above: Performed By: #### 2 97924 ####[facility],[address] [place] [address] 99878 Albumin/Globulin [Mass ratio] 1.0 {ratio} Normal 0.9 - 1.6 [facility] Comment on above: Performed By: #### 2 86379 ####[facility],[address] [place] [address] 56606 ALK PHOS 112 U/L Normal 46 - 116 [facility] Comment on above: Performed By: #### 2 12872 ####[facility],[address] [place] [address] 38711 ALT [Catalytic activity/Vol] 30 U/L Normal 16 - 63 [facility] Comment on above: Performed By: #### 2 17931 ####[facility],[address] [place] [address] 58702 Anion gap [Moles/Vol] 13 mmol/L Normal 10 - 20 [facility] Comment on above: Performed By: #### 2 97794 ####[facility],[address] [place] [address] 39741 AST [Catalytic activity/Vol] 22 U/L Normal 15 - 37 [facility] Comment on above: Performed By: #### 2 89345 ####[facility],[address] [place] [address] 20326 B/C RATIO 26 ratio Normal 0 - 30 [facility] Comment on above: Performed By: #### 2 61989 ####[facility],[address] [place] [address] 62517 Bilirubin [Mass/Vol] 0.7 mg/dL Normal 0.2 - 1.0 [facility] Comment on above: Performed By: #### 2 03955 ####[facility],[address] [place], [place] [address] Calcium [Mass/Vol] 9.6 mg/dL Normal 8.5 - 10.1 [facility] Comment on above: Performed By: #### 2 97718 ####[facility],[address] [place] [address] 01213 Chloride [Moles/Vol] 107 mmol/L Normal 98 - 107 [facility] Comment on above: Performed By: #### 2 52556 ####[facility],[address] [place] [address] 56502 CMP with eGFR Normal [facility] Comment on above: Result Comment: COMP REHENSIVE METABOLIC PANEL Performed By: #### 2 50906 ####[facility],[address] [place] [address] 47569 CO2 [Moles/Vol] 27.8 mmol/L Normal 21.0 - 32.0 [facility] Comment on above: Performed By: #### 2 00561 ####[facility],[address] [place] [address] 88221 Creatinine [Mass/Vol] 1.09 mg/dL Normal 0.70 - 1.30 [facility] Comment on above: Performed By: #### 2 89062 ####[facility],[address] [place] [address] 12180 GFR/1.73 sq M.predicted among non-blacks MDRD (S/P/Bld) [Vol rate/Area] mL/min/{1.73_m2} Normal 60 - 999 [facility] Comment on above: Performed By: #### 2 37058 ####[facility],[address] [place] [address] Result Comment: ACCO RDING TO THE NATIONAL KIDNEY DISEASE EDUCATION PROGRAM(NKDE), A NORMAL eGFR IS A VALUE GREATER THAN OR EQUAL TO 60 ML/MIN/1.73 SQ METERS. CHRONIC KIDNEY DISEASE: <60mL/MIN/1.73 SQ METERS KIDNEY FAILURE: <15mL/MIN/1.73 SQ METERS THIS TEST SHOULD ONLY BE USED FOR PATIENTS 18 YEARS OF AGE AND OLDER. Globulin (S) [Mass/Vol] 3.5 g/dL Normal 1.5 - 3.8 [facility] Comment on above: Performed By: #### 2 36766 ####[facility],[address] [place] [address] 02557 Glucose [Mass/Vol] 151 mg/dL High 74 - 106 [facility] Comment on above: Performed By: #### 2 34748 ####[facility],[address] [place] [address] 82471 Potassium [Moles/Vol] 4.3 mmol/L Normal 3.5 - 5.1 [facility] Comment on above: Performed By: #### 2 20011 ####[facility],[address] [place] [address] 44683 Protein [Mass/Vol] 7.1 g/dL Normal 6.4 - 8.2 [facility] Comment on above: Performed By: #### 2 88073 ####[facility],[address] [place] [address] 68099 Sodium [Moles/Vol] 143 mmol/L Normal 136 - 145 [facility] Comment on above: Performed By: #### 2 15730 ####[facility],[address] [place] [address] 61074 Urea nitrogen [Mass/Vol] 28 mg/dL High 7 - 18 [facility] Comment on above: Performed By: #### 2 31200 ####[facility],[address] [place] [address] 95254 T4, FREE [CCL]on 12-18-2024 Free T4 [Mass/Vol] 1.2 ng/dL Normal 0.9-1.7 [facility] Comment on above: Result Comment: [place] [address] Wojciech Fuentes III, M.D. [id number] Performed By: #### 2 88043 #### [facility],[address] [place] [address] 78744 CBC + DIFFon 12-17-2024 Baso # 0.02 x10EE3/UL Normal 0.00 - 0.10 [facility] Comment on above: Performed By: #### 2 78965 #### [facility],[address] [place] [address] 02389 Basophils/100 WBC (Bld) 0.3 % Normal 0.0 - 2.0 [facility] Comment on above: Performed By: #### 2 10895 #### [facility],[address] [place] [address] 61577 CBC + DIFF Normal [facility] Comment on above: Result Comment: CBC- COMPLETE BLOOD COUNT Performed By: #### 2 23769 #### [facility],[address] [place] [address] 45464 EO # 0.02 x10EE3/UL Normal 0.00 - 0.50 [facility] Comment on above: Performed By: #### 2 78888 #### [place] [address] Eosinophils/100 WBC (Bld) 0.3 % Normal 0.0 - 7.0 [facility] Comment on above: Performed By: #### 2 50150 #### [facility],[address] [place] [address] Erythrocyte distribution width (RBC) [Ratio] 12.7 % Normal 12.0 - 15.6 [facility] Comment on above: Performed By: #### 2 59913 #### [place] [address] Hematocrit (Bld) [Volume fraction] 42.0 % Normal 40.0 - 52.0 [facility] Comment on above: Performed By: #### 2 21622 #### [place] [address] Hemoglobin (Bld) [Mass/Vol] 13.9 g/dL Normal 13.0 - 17.5 [facility] Comment on above: Performed By: #### 2 15320 #### [facility],[address] [place] [address] Lymph # 0.98 x10EE3/UL Normal 0.80 - 2.80 [facility] Comment on above: Performed By: #### 2 21496 #### [place] [id number] Lymphocytes/100 WBC (Bld) 16.9 % Low 20.0 - 45.0 [facility] Comment on above: Performed By: #### 2 33686 #### [place] [address] MANUAL DIFF N/A Normal [facility] Comment on above: Performed By: #### 2 96011 #### [place] [address] MCH (RBC) [Entitic mass] 34 pg High 27 - 33 [facility] Comment on above: Performed By: #### 2 28662 #### [address] [address] MCHC 33 X10 3 Normal 32 - 36 [facility] Comment on above: Performed By: #### 2 04913 #### [facility],[address] [place] [address] 42201 MCV (RBC) [Entitic vol] 102 fL High 81 - 98 [facility] Comment on above: Performed By: #### 2 22309 #### [facility],[address] [place] [address] 51692 [place] # 0.65 x10EE3/UL Normal 0.20 - 1.00 [facility] Comment on above: Performed By: #### 2 67535 #### [facility],[address] [place] [address] 01719 MONOS % 11.3 % High 0.0 - 10.0 [facility] Comment on above: Performed By: #### 2 39430 #### [facility],[address] [place] [address] 24357 Morphology Yao (Bld) [Interp] N/A Normal [facility] Comment on above: Performed By: #### 2 51350 #### [facility],[address] [place] [address] 68320 Neut # 4.10 x10EE3/UL Normal 1.50 - 7.10 [facility] Comment on above: Performed By: #### 2 57094 #### [address] [address]66 Neutrophils/100 WBC (Bld) 71.1 % Normal 46.0 - 76.0 [facility] Comment on above: Performed By: #### 2 15376 #### [place] [phone] PLATELET 190 x10EE3/UL Normal 150 - 450 [facility] Comment on above: Performed By: #### 2 93182 #### [facility],[address] [place] [address] 09430 Platelet mean volume (Bld) [Entitic vol] 8.7 fL Normal 6.4 - 10.5 [facility] Comment on above: Result Comment: AUTO MATED DIFFERENTIAL Performed By: #### 2 50699 #### [facility],[address] [place] [address] RBC 4.12 x 10EE6/UL Low 4.50 - 6.00 [facility] Comment on above: Performed By: #### 2 24849 #### [facility],[address] [place] [address] 51899 WBC 5.8 x 10EE3/UL Normal 4.5 - 10.8 [facility] Comment on above: Performed By: #### 2 92472 #### [facility],[address] [place] [address] 82677 CMP with eGFRon 12-17-2024 AGE 84 years Normal [facility] Comment on above: Performed By: #### 2 26829 ####[facility],[address] [place] [address] 38952 Albumin [Mass/Vol] 3.5 g/dL Normal 3.4 - 5.0 [facility] Comment on above: Performed By: #### 2 33553 ####[facility],[address] [place] [address] 95790 Albumin/Globulin [Mass ratio] 1.0 {ratio} Normal 0.9 - 1.6 [facility] Comment on above: Performed By: #### 2 48109 ####[facility],[address] [place] [address] 56267 ALK PHOS 117 U/L High 46 - 116 [facility] Comment on above: Performed By: #### 2 99780 ####[facility],[address] [place] [address] 72432 ALT [Catalytic activity/Vol] 28 U/L Normal 16 - 63 [facility] Comment on above: Performed By: #### 2 93815 ####[facility],[address] [place] [address] 61454 Anion gap [Moles/Vol] 11 mmol/L Normal 10 - 20 [facility] Comment on above: Performed By: #### 2 15761 ####[facility],[address] [place] [address] 32310 AST [Catalytic activity/Vol] 17 U/L Normal 15 - 37 [facility] Comment on above: Performed By: #### 2 71332 ####[facility],[address] [place] [address] 25969 B/C RATIO 22 ratio Normal 0 - 30 [facility] Comment on above: Performed By: #### 2 95086 ####[facility],[address] [place] [address] 70317 Bilirubin [Mass/Vol] 0.7 mg/dL Normal 0.2 - 1.0 [facility] Comment on above: Performed By: #### 2 82510 ####[facility],[address] [place] [address] 58264 Calcium [Mass/Vol] 9.0 mg/dL Normal 8.5 - 10.1 [facility] Comment on above: Performed By: #### 2 10135 ####[facility],[address] [place] [address] 73111 Chloride [Moles/Vol] 106 mmol/L Normal 98 - 107 [facility] Comment on above: Performed By: #### 2 13776 ####[facility],[address] [place] [address] 81510 CMP with eGFR Normal [facility] Comment on above: Result Comment: COMP REHENSIVE METABOLIC PANEL Performed By: #### 2 99688 ####[facility],[address] [place] [address] 68427 CO2 [Moles/Vol] 28.8 mmol/L Normal 21.0 - 32.0 [facility] Comment on above: Performed By: #### 2 02497 ####[facility],[address] [place] [address] 98745 Creatinine [Mass/Vol] 1.05 mg/dL Normal 0.70 - 1.30 [facility] Comment on above: Performed By: #### 2 04055 ####[facility],[address] [place] [address] 41378 GFR/1.73 sq M.predicted among non-blacks MDRD (S/P/Bld) [Vol rate/Area] mL/min/{1.73_m2} Normal 60 - 999 [facility] Comment on above: Performed By: #### 2 87906 ####[facility],[address] [place] [address] Result Comment: ACCO RDING TO THE NATIONAL KIDNEY DISEASE EDUCATION PROGRAM(NKDE), A NORMAL eGFR IS A VALUE GREATER THAN OR EQUAL TO 60 ML/MIN/1.73 SQ METERS. CHRONIC KIDNEY DISEASE: <60mL/MIN/1.73 SQ METERS KIDNEY FAILURE: <15mL/MIN/1.73 SQ METERS THIS TEST SHOULD ONLY BE USED FOR PATIENTS 18 YEARS OF AGE AND OLDER. Globulin (S) [Mass/Vol] 3.4 g/dL Normal 1.5 - 3.8 [facility] Comment on above: Performed By: #### 2 13782 ####[facility],[address] [place] [address] 89823 Glucose [Mass/Vol] 93 mg/dL Normal 74 - 106 [facility] Comment on above: Performed By: #### 2 67549 ####[facility],[address] [place] [address] 31267 Potassium [Moles/Vol] 4.3 mmol/L Normal 3.5 - 5.1 [facility] Comment on above: Performed By: #### 2 29880 ####[facility],[address] [place] [address] 79935 Protein [Mass/Vol] 6.9 g/dL Normal 6.4 - 8.2 [facility] Comment on above: Performed By: #### 2 44871 ####[facility],[address] [place] [address] 64691 Sodium [Moles/Vol] 141 mmol/L Normal 136 - 145 [facility] Comment on above: Performed By: #### 2 91151 ####[facility],[address] [place] [address] 73353 Urea nitrogen [Mass/Vol] 23 mg/dL High 7 - 18 [facility] Comment on above: Performed By: #### 2 12821 ####[facility],[address] [place] [address] 88220 LIPID PROFILEon 12-17-2024 Cholesterol [Mass/Vol] 158 mg/dL Normal 0 - 240 [facility] Comment on above: Performed By: #### 2 35657 #### [facility],[address] [place] [address] 91589 Cholesterol in HDL [Mass/Vol] 72 mg/dL High 40 - 60 [facility] Comment on above: Performed By: #### 2 71422 #### [facility],[address] [place] [address] 58650 Cholesterol in LDL [Mass/Vol] 81 mg/dL Normal 0 - 129 [facility] Comment on above: Performed By: #### 2 08285 #### [facility],[address] [place] [address] 87744 Cholesterol.total/Beatrice sterol in HDL [Mass ratio] 2.2 {ratio} Normal 0.0 - 5.0 [facility] Comment on above: Performed By: #### 2 85973 #### [facility],[address] [place] [address] 87336 Lipid 1996 panel Normal [facility] Comment on above: Result Comment: LIPI D PROFILE Performed By: #### 2 76467 #### [facility],[address] [place] [address] 38410 Triglyceride [Mass/Vol] 27 mg/dL Normal 0 - 150 [facility] Comment on above: Performed By: #### 2 75335 #### [facility],[address] [place] [address] 98465 T4 Free SerPl-mCncon 025 Free T4 [Mass/Vol] 1.2 ng/dL Normal 0.9-1.7 [facility] Comment on above: Order Comment: Speci men Type: BLOOD SPECIMEN Ordering Facility: [facility] Address: [address] [place] [address] Performed By: #### 3 024-7 #### [facility] CLIA [id number] [address] [place] [address] [place] TSHon 12-17-2024 TSH Qn 3.05 m[IU]/L Normal 0.35 - 3.74 [facility] Comment on above: Performed By: #### 2 96095 #### [facility],[address] [place] [address] 96437 Carotid Duplex Ultrasoundon 10-28-2024 Carotid Duplex Ultrasound [facility] [address] [place] [address] Carotid Duplex Ultrasound 10/28/24 1300 MR#: [id number] Acct: [id number] Name: SABIHA WEBBER Rep #: [id number] : 1940 83 From: Blake Gonzalez MD [...] in left vertebral artery. Procedure Carotid Duplex 34375. This is a Carotid Duplex examination using [...] Date Dictated: 10/28/24 1300 Date Transcribed: 10/29/24940 Cigarette Catcher: Signed Normal [facility] CBC + DIFFon 10-16-2024 Baso # 0.03 x10EE3/UL Normal 0.00 - 0.10 [facility] Comment on above: Performed By: #### 2 13565 ####[facility],[address] [place] [address] 81184 Basophils/100 WBC (Bld) 0.3 % Normal 0.0 - 2.0 [facility] Comment on above: Performed By: #### 2 62320 ####[facility],[address] [place] [address] 56857 CBC + DIFF Normal [facility] Comment on above: Result Comment: CBC- COMPLETE BLOOD COUNT Performed By: #### 2 23211 ####[facility],[address] [place] [address] 29143 EO # 0.06 x10EE3/UL Normal 0.00 - 0.50 [facility] Comment on above: Performed By: #### 2 79546 ####[facility],[address] [place] [address] 72785 Eosinophils/100 WBC (Bld) 0.6 % Normal 0.0 - 7.0 [facility] [facility] Comment on above: Performed By: #### 2 21034 ####[facility],[address] [place] [address] 54460 Erythrocyte distribution width (RBC) [Ratio] 13.6 % Normal 12.0 - 15.6 [facility] Comment on above: Performed By: #### 2 19634 ####[facility],[address] [place] [address] 34139 Hematocrit (Bld) [Volume fraction] 42.4 % Normal 40.0 - 52.0 [facility] Comment on above: Performed By: #### 2 90800 ####[facility],[address] [place] [address] 77160 Hemoglobin (Bld) [Mass/Vol] 14.1 g/dL Normal 13.0 - 17.5 [facility] Comment on above: Performed By: #### 2 93435 ####[facility],[address] [place] [address] 41723 Lymph # 0.70 x10EE3/UL Low 0.80 - 2.80 [facility] Comment on above: Performed By: #### 2 87885 ####[facility],[address] [place], [place] [address] Lymphocytes/100 WBC (Bld) 6.7 % Low 20.0 - 45.0 [facility] Comment on above: Performed By: #### 2 78429 ####[facility],[address] [place] [address] 57795 MANUAL DIFF N/A Normal [facility] Comment on above: Performed By: #### 2 48514 ####[facility],[address] [place] [address] 84882 MCH (RBC) [Entitic mass] 34 pg High 27 - 33 [facility] Comment on above: Performed By: #### 2 83208 ####[facility],[address] [place] [address] 26003 MCHC 33 X10 3 Normal 32 - 36 [facility] Comment on above: Performed By: #### 2 01771 ####[facility],[address] [place] [address] 53659 MCV (RBC) [Entitic vol] 104 fL High 81 - 98 [facility] Comment on above: Performed By: #### 2 38186 ####[facility],[address] [place] [address] 77169 [place] # 1.04 x10EE3/UL High 0.20 - 1.00 [facility] Comment on above: Performed By: #### 2 37978 ####[facility],[address] [place] [address] 62571 MONOS % 10.1 % High 0.0 - 10.0 [facility] Comment on above: Performed By: #### 2 00521 ####[facility],[address] [place] [address] 44655 Morphology Yao (Bld) [Interp] N/A Normal [facility] Comment on above: Performed By: #### 2 50047 ####[facility],[address] [place] [address] 06755 Neut # 8.55 x10EE3/UL High 1.50 - 7.10 [facility] Comment on above: Performed By: #### 2 32247 ####[facility],[address] [place] [address] 69701 Neutrophils/100 WBC (Bld) 82.4 % High 46.0 - 76.0 [facility] Comment on above: Performed By: #### 2 20120 ####[facility],[address] [place] [address] 60986 PLATELET 194 x10EE3/UL Normal 150 - 450 [facility] Comment on above: Performed By: #### 2 51287 ####[facility],[address] [place] [address] 08534 Platelet mean volume (Bld) [Entitic vol] 9.5 fL Normal 6.4 - 10.5 [facility] Comment on above: Result Comment: AUTO MATED DIFFERENTIAL Performed By: #### 2 47630 ####[facility],[address] [place] [address] 81093 RBC 4.10 x 10EE6/UL Low 4.50 - 6.00 [facility] Comment on above: Performed By: #### 2 74983 ####[facility],[address] [place] [address] 36174 WBC 10.4 x 10EE3/UL Normal 4.5 - 10.8 [facility] Comment on above: Performed By: #### 2 81019 ####[facility],[address] [place] [address] 65593 CMP with eGFRon 10-16-2024 AGE 83 years Normal [facility] Comment on above: Performed By: #### 2 54780 #### [facility],[address] [place] [address] 58252 Albumin [Mass/Vol] 3.3 g/dL Low 3.4 - 5.0 [facility] Comment on above: Performed By: #### 2 58652 #### [facility],[address] [place] [address] 85490 Albumin/Globulin [Mass ratio] 1.0 {ratio} Normal 0.9 - 1.6 [facility] Comment on above: Performed By: #### 2 36715 #### [facility],[address] [place] [address] 05399 ALK PHOS 100 U/L Normal 46 - 116 [facility] Comment on above: Performed By: #### 2 51706 #### [facility],[address] [place] [address] 59225 ALT [Catalytic activity/Vol] 36 U/L Normal 16 - 63 [facility] Comment on above: Performed By: #### 2 00721 #### [facility],[address] [place] [address] 31459 Anion gap [Moles/Vol] 7 mmol/L Low 10 - 20 [facility] Comment on above: Performed By: #### 2 58669 #### [facility],[address] [place] [address] 64603 AST [Catalytic activity/Vol] 21 U/L Normal 15 - 37 [facility] Comment on above: Performed By: #### 2 98069 #### [facility],[address] [place] [address] 00632 B/C RATIO 23 ratio Normal 0 - 30 [facility] Comment on above: Performed By: #### 2 85348 #### [facility],[address] [place] [address] 05733 Bilirubin [Mass/Vol] 0.6 mg/dL Normal 0.2 - 1.0 [facility] Comment on above: Performed By: #### 2 44197 #### [facility],[address] [place] [address] 53707 Calcium [Mass/Vol] 9.0 mg/dL Normal 8.5 - 10.1 [facility] Comment on above: Performed By: #### 2 36478 #### [facility],[address] [place] [address] 97858 Chloride [Moles/Vol] 107 mmol/L Normal 98 - 107 [facility] Comment on above: Performed By: #### 2 69146 #### [facility],[address] [place] [address] 58587 CMP with eGFR Normal [facility] Comment on above: Result Comment: COMP REHENSIVE METABOLIC PANEL Performed By: #### 2 13387 #### [facility],[address] [place] [address] 28973 CO2 [Moles/Vol] 30.8 mmol/L Normal 21.0 - 32.0 [facility] Comment on above: Performed By: #### 2 35243 #### [facility],[address] [place] [address] 58617 Creatinine [Mass/Vol] 1.11 mg/dL Normal 0.70 - 1.30 [facility] Comment on above: Performed By: #### 2 05455 #### [facility],[address] [place] [address] 58622 GFR/1.73 sq M.predicted among non-blacks MDRD (S/P/Bld) [Vol rate/Area] mL/min/{1.73_m2} Normal 60 - 999 [facility] Comment on above: Performed By: #### 2 35323 #### [facility],[address] [place] [address] 56524 Result Comment: ACCO RDING TO THE NATIONAL KIDNEY DISEASE EDUCATION PROGRAM(NKDE), A NORMAL eGFR IS A VALUE GREATER THAN OR EQUAL TO 60 ML/MIN/1.73 SQ METERS. CHRONIC KIDNEY DISEASE: <60mL/MIN/1.73 SQ METERS KIDNEY FAILURE: <15mL/MIN/1.73 SQ METERS THIS TEST SHOULD ONLY BE USED FOR PATIENTS 18 YEARS OF AGE AND OLDER. Globulin (S) [Mass/Vol] 3.3 g/dL Normal 1.5 - 3.8 [facility] Comment on above: Performed By: #### 2 11558 #### [facility],[address] [place] [address] 41554 Glucose [Mass/Vol] 86 mg/dL Normal 74 - 106 [facility] Comment on above: Performed By: #### 2 05057 #### [facility],[address] [place] [address] 81109 Potassium [Moles/Vol] 4.1 mmol/L Normal 3.5 - 5.1 [facility] Comment on above: Performed By: #### 2 85169 #### [facility],[address] [place] [address] 89223 Protein [Mass/Vol] 6.6 g/dL Normal 6.4 - 8.2 [facility] Comment on above: Performed By: #### 2 04557 #### [facility],[address] [place] [address] 29362 Sodium [Moles/Vol] 141 mmol/L Normal 136 - 145 [facility] Comment on above: Performed By: #### 2 89321 #### [facility],[address] [place] [address] 30694 Urea nitrogen [Mass/Vol] 25 mg/dL High 7 - 18 [facility] Comment on above: Performed By: #### 2 68505 #### [facility],[address] [place] [address] 08311 ED MED ADMINISTRATION DETAIL on 09-06-2024 ED MED ADMINISTRATION DETAIL [employer]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 1 of 1 Normal [facility] ED NURSES CLINICAL NOTEon ED NURSES CLINICAL NOTE Nurse Narrative Nurse Clinical Narrative [address] [address] [id number] 09/06/2024 Patient: SABIHA WEBBER Sex: Male : [...] 95% Temperature: 98.9 F. Pain level now 02/23. -- 14:10 09/06/24 PADMINI Nascimento R.N. Measurements: [...] Melendez R.N. 09/06/24 17:10:38 EST) Generated by [facility] 3 of 3 Normal [facility] ED ORDER SHEET (CPOE ONLY)on 09-06-2024 ED ORDER SHEET (CPOE ONLY) Order Sheet Order Sheet [address] [place] [address] [id number] 09/06/2024 Patient: SABIHA WEBBER Sex: Male : 1940 Age: 83y MEASUREMENTS: Wt: 72.6 kg ALLERGIES: No known drug allergies MEDICATION/IV/DRIP/F LUID ORDERS Order Description Priority Entered Acknowledged Completed Acetaminophen (Tylenol) 14:19 09/06/2024 14:19 14:24 PO975 mg (NOW x1) Luis Leblanc D.O. 09/06/2024 09/06/2024 Brannon Edwards, GeorgeNTracee RTraceeNTracee LAB ORDERS Order Description Priority Entered Acknowledged Collected Completed DIAGNOSTIC STUDY ORDERS Order Description Priority Entered Acknowledged Completed Knee R Complete Stat Stat 14:18 09/06/2024 14:19 16:15 Luis Leblanc D.O. 09/06/2024 09/06/2024 Brannon Edwards, Mare.NTracee R.NTracee Reason for Study: Pain Femur R 2V Stat Stat 14:18 09/06/2024 14:19 16:15 Luis Leblanc D.O. 09/06/2024 09/06/2024 Brannon Edwards, 1 of 2 Order Sheet R.N. R.N. Reason for Study: Thigh Injury STAFF ORDERS Order Description Priority Entered Acknowledged Collected Completed [Electronically signed by Luis Leblanc D.O. (09/06/2024 16:04 EST)] 2 of 2 Normal [facility] ED PHYSICIAN CLINICAL REPORT on 09-06-2024 ED PHYSICIAN CLINICAL REPORT Narrative Physician Clinical Narrative [address] [place] [address] [id number] 09/06/2024 Patient: SABIHA WEBBER Sex: Male : [...] Leblanc D.O. 09/06/24 16:04:18 EST) Generated by [facility] 3 of 3 Normal [facility] ED [facility] BILL 09-06-2024 ED [facility] [address] [place] [address] [id number] 09/06/2024 Patient: SABIHA WEBBER Sex: Male : 1940 Age: 83y Item Professional Category Description Facility Code Code Quantity Fee Total Nurse/E/M EMERGENCY 277493 1 $0.00 $0.00 DEPARTMENT VISIT MODERATE SEVERITY (24254-77) Grand Total $0.00 Providers Luis Leblanc D.O. [...] knee, initial encounter 2 of 2 Normal [facility] ED VISIT SUMMARYon ED VISIT SUMMARY Visit Overview Visit Overview [address] [place] [address] [id number] 09/06/2024 Patient: SABIHA WEBBER Sex: Male : [...] LEVEL BY STUMBLING 3 of 3 Normal [facility] ED VITALS FLOW SHEETon 09-06 ED VITALS FLOW SHEET Vitals Vital Sign Flow Sheet [address] [address] [id number] 09/06/2024 Patient: SABIHA WEBBER Sex: Male : 1940 Age: 83y Measurements Wt: 72.6 kg Measured Time BP MAP HR RR O2Sat ETCO2 Temp Pain GCS RTS 16:57 09/06/2024 124/79 94 72 16 96% 98.0 F 1 14:10 09/06/2024 143/81 102 87 18 95% 98.9 F 6 1 of 1 Normal [facility] FEMUR RT 2+ VIEWSon 09-06-20 FEMUR RT 2+ VIEWS [address] [address] Patient: SABIHA WEBBER Phone#: : 1940 Age: 83 Gender: M Pt. Type: ER Account: [id number] Location: 052 Ordering: LUIS LEBLANC Exam Date: 09/06/2024/14:47 Family Phys: BUTROS LATOUF Charge Code: 680929 Physician: [place] Order #: [id number] Dose#: PROCEDURE: X-RAY FEMUR RT MIN 2 [...] Zambrano MD on 09/06/2024 at 22:03 Normal [facility] KNEE COMPLETE RT MIN 4 VIEWS on 09-06-2024 KNEE COMPLETE RT MIN 4 VIEWS [place] [address] Patient: SABIHA WEBBER Phone#: : 1940 Age: 83 Gender: M Pt. Type: ER Account: [id number] Location: 052 Ordering: LUIS LEBLANC Exam Date: 09/06/2024/14:38 Family Phys: BUTROS LATOUF Charge Code: 078698 Physician: [place] Order #: [id number] Dose#: PROCEDURE: X-RAY KNEE RT COMPLETE 4 VIEWS COMPARISON: None. INDICATIONS: Pain. FINDINGS: BONES: Normal. No significant arthropathy or acute abnormality. SOFT TISSUES: Negative. No visible soft tissue swelling. EFFUSION: None visible. OTHER: Negative. CONCLUSION: No acute disease. Dictated by: Luly Zambrano MD on 09/06/2024 at 22:01 Approved by: Luly Zambrano MD on 09/06/2024 at 22:01 Normal [facility] CBC + DIFFon 07-31-2024 Baso # 0.02 x10EE3/UL Normal 0.00 - 0.10 [facility] Comment on above: Performed By: #### 2 11565 ####[facility],[address] [place] [address] 04706 Basophils/100 WBC (Bld) 0.3 % Normal 0.0 - 2.0 [facility] Comment on above: Performed By: #### 2 91121 ####[facility],[address] [place] [address] CBC + DIFF Normal [facility] Comment on above: Result Comment: CBC- COMPLETE BLOOD COUNT Performed By: #### 2 63087 ####[facility],[address] [place] [address] EO # 0.03 x10EE3/UL Normal 0.00 - 0.50 [facility] Comment on above: Performed By: #### 2 54698 ####[facility],[address] [place] [address] 15795 Eosinophils/100 WBC (Bld) 0.5 % Normal 0.0 - 7.0 [facility] Comment on above: Performed By: #### 2 11757 ####[facility],[address] [place] [address] Erythrocyte distribution width (RBC) [Ratio] 13.6 % Normal 12.0 - 15.6 [facility] Comment on above: Performed By: #### 2 46247 ####[facility],[address] [place] [address] Hematocrit (Bld) [Volume fraction] 43.5 % Normal 40.0 - 52.0 [facility] Comment on above: Performed By: #### 2 01730 ####[facility],[address] [place] [address] 46383 Hemoglobin (Bld) [Mass/Vol] 14.7 g/dL Normal 13.0 - 17.5 [facility] Comment on above: Performed By: #### 2 98227 ####[facility],[address] [place], [place] [address] Lymph # 0.99 x10EE3/UL Normal 0.80 - 2.80 [facility] Comment on above: Performed By: #### 2 57133 ####[facility],[address] [place] [address] 38189 Lymphocytes/100 WBC (Bld) 13.4 % Low 20.0 - 45.0 [facility] Comment on above: Performed By: #### 2 36058 ####[facility],[address] [place] [address] MANUAL DIFF N/A Normal [facility] Comment on above: Performed By: #### 2 07072 ####[facility],[address] [place] [address] MCH (RBC) [Entitic mass] 34 pg High 27 - 33 [facility] Comment on above: Performed By: #### 2 07873 ####[facility],[address] [place] [address] MCHC 34 X10 3 Normal 32 - 36 [facility] Comment on above: Performed By: #### 2 22930 ####[facility],[address] [place], [place] [address] MCV (RBC) [Entitic vol] 100 fL High 81 - 98 [facility] Comment on above: Performed By: #### 2 63113 ####[facility],[address] [place] [address] [place] # 0.60 x10EE3/UL Normal 0.20 - 1.00 [facility] Comment on above: Performed By: #### 2 86489 ####[address] [address] MONOS % 8.0 % Normal 0.0 - 10.0 [facility] Comment on above: Performed By: #### 2 88581 ####[facility],[address] [place] [address] 39595 Morphology Yao (Bld) [Interp] N/A Normal [facility] Comment on above: Performed By: #### 2 91407 ####[facility],[address] [place] [address] 54694 Neut # 5.79 x10EE3/UL Normal 1.50 - 7.10 [facility] Comment on above: Performed By: #### 2 68620 ####[facility],[address] [place] [address] 15476 Neutrophils/100 WBC (Bld) 77.9 % High 46.0 - 76.0 [facility] Comment on above: Performed By: #### 2 64756 ####[facility],[address] [place] [address] 19659 PLATELET 198 x10EE3/UL Normal 150 - 450 [facility] Comment on above: Performed By: #### 2 98771 ####[facility],[address] [place] [address] 67098 Platelet mean volume (Bld) [Entitic vol] 8.8 fL Normal 6.4 - 10.5 [facility] Comment on above: Result Comment: AUTO MATED DIFFERENTIAL Performed By: #### 2 90776 ####[facility],[address] [place] [address] 65386 RBC 4.33 x 10EE6/UL Low 4.50 - 6.00 [facility] Comment on above: Performed By: #### 2 12777 ####[facility],[address] [place] [address] 87195 WBC 7.4 x 10EE3/UL Normal 4.5 - 10.8 [facility] Comment on above: Performed By: #### 2 38546 ####[facility],[address] [place] [address] 16961 CMP with eGFRon 07-31-2024 AGE 83 years Normal [facility] Comment on above: Performed By: #### 2 94789 #### [facility],[address] [place] [address] 52881 Albumin [Mass/Vol] 3.7 g/dL Normal 3.4 - 5.0 [facility] Comment on above: Performed By: #### 2 73488 #### [facility],[address] [place] [address] Albumin/Globulin [Mass ratio] 1.0 {ratio} Normal 0.9 - 1.6 [facility] Comment on above: Performed By: #### 2 02428 #### [facility],[address] [place] [address] ALK PHOS 109 U/L Normal 46 - 116 [facility] Comment on above: Performed By: #### 2 49827 #### [facility],[address] [place] [address] ALT [Catalytic activity/Vol] 25 U/L Normal 16 - 63 [facility] Comment on above: Performed By: #### 2 79884 #### [facility],[address] [place] [address] Anion gap [Moles/Vol] 12 mmol/L Normal 10 - 20 [facility] Comment on above: Performed By: #### 2 70889 #### [facility],[address] [place] [address] AST [Catalytic activity/Vol] 23 U/L Normal 15 - 37 [facility] Comment on above: Performed By: #### 2 72241 #### [facility],[address] [place] [address] B/C RATIO 22 ratio Normal 0 - 30 [facility] Comment on above: Performed By: #### 2 85134 #### [facility],[address] [place] [address] 85774 Bilirubin [Mass/Vol] 0.7 mg/dL Normal 0.2 - 1.0 [facility] Comment on above: Performed By: #### 2 79831 #### [facility],[address] [place] [address] 45906 Calcium [Mass/Vol] 9.7 mg/dL Normal 8.5 - 10.1 [facility] Comment on above: Performed By: #### 2 66660 #### [facility],[address] [place], [place] [address] Chloride [Moles/Vol] 105 mmol/L Normal 98 - 107 [facility] Comment on above: Performed By: #### 2 50641 #### [facility],[address] [place] [address] CMP with eGFR Normal [facility] Comment on above: Result Comment: COMP REHENSIVE METABOLIC PANEL Performed By: #### 2 75759 #### [facility],[address] [place] [address] CO2 [Moles/Vol] 29.1 mmol/L Normal 21.0 - 32.0 [facility] Comment on above: Performed By: #### 2 20715 #### [facility],[address] [place], [place] [address] Creatinine [Mass/Vol] 1.22 mg/dL Normal 0.70 - 1.30 [facility] Comment on above: Performed By: #### 2 28351 #### [facility],[address] [place] [address] eGFR 57 ML/MINUTE Low 60 - 999 [facility] Comment on above: Performed By: #### 2 98628 #### [facility],[address] [place], [place] [address] GFR/1.73 sq M.predicted among non-blacks MDRD (S/P/Bld) [Vol rate/Area] mL/min/{1.73_m2} Normal 60 - 999 [facility] Comment on above: Result Comment: ACCO RDING TO THE NATIONAL KIDNEY DISEASE EDUCATION PROGRAM(NKDE), A NORMAL eGFR IS A VALUE GREATER THAN OR EQUAL TO 60 ML/MIN/1.73 SQ METERS. CHRONIC KIDNEY DISEASE: <60mL/MIN/1.73 SQ METERS KIDNEY FAILURE: <15mL/MIN/1.73 SQ METERS THIS TEST SHOULD ONLY BE USED FOR PATIENTS 18 YEARS OF AGE AND OLDER. Performed By: #### 2 57294 #### [facility],[address] [place] [address] 56000 Globulin (S) [Mass/Vol] 3.7 g/dL Normal 1.5 - 3.8 [facility] Comment on above: Performed By: #### 2 76569 #### [facility],[address] [place] [address] 87060 Glucose [Mass/Vol] 97 mg/dL Normal 74 - 106 [facility] Comment on above: Performed By: #### 2 71599 #### [facility],[address] [place] [address] 84944 Potassium [Moles/Vol] 4.9 mmol/L Normal 3.5 - 5.1 [facility] Comment on above: Performed By: #### 2 98961 #### [facility],[address] [place] [address] 87603 Protein [Mass/Vol] 7.4 g/dL Normal 6.4 - 8.2 [facility] Comment on above: Performed By: #### 2 37325 #### [facility],[address] [place] [address] 37347 Sodium [Moles/Vol] 141 mmol/L Normal 136 - 145 [facility] Comment on above: Performed By: #### 2 34396 #### [facility],[address] [place] [address] 04778 Urea nitrogen [Mass/Vol] 27 mg/dL High 7 - 18 [facility] Comment on above: Performed By: #### 2 49023 #### [facility],[address] [place] [address] 33170 No Panel InformationOrdered By: Blake Gonzalez on 09-26-2023 Estimated GFR (MDRD) Amer 76 mL/min >60 [facility] Comment on above: GFR Calc Estimated GFR (MDRD) Non-Af Amer 63 mL/min >60 [facility] Comment on above: Non- GFR Calc Serum or plasma creatinine m easurement (mass/volume)Ordered By: Blake Gonzalez on 09-26-2023 Creatinine [Mass/Vol] 1.18 mg/dL 0.70-1.30 [facility] Comment on above: The validity of the calculated GFR & GFRAA in patients over 70 years has not been determined. Clinical correlation is essential. Vital Signs Date Time Vital Sign Value Performing Clinician Facility 06-09-2025 16:10-0400 Body temperature 98.2 [degF] Reanna Diaz PA Work Phone: [facility] 06-09-2025 16:10-0400 Body weight 61.23 kg Reanna Diaz PA Work Phone: [facility] 06-09-2025 16:10-0400 Diastolic blood pressure 79 mm[Hg] Reanna Diaz PA Work Phone: [facility] 06-09-2025 16:10-0400 Heart rate 86 /min Reanna Diaz PA Work Phone: [facility] 06-09-2025 16:10-0400 Respiratory rate 16 /min Reanna Diaz PA Work Phone: [facility] 06-09-2025 16:10-0400 SaO2% (BldA) [Mass fraction] 95 % Reanna Diaz PA Work Phone: [facility] 06-09-2025 16:10-0400 Systolic blood pressure 144 mm[Hg] Reanna Diaz PA Work Phone: [facility] 12-20-2023 14:47-0400 Body temperature 97.39 [degF] Cristina Elias [employer] Work Phone: [facility] 12-20-2023 14:47-0400 Body weight 62.9 kg Cristina Elias [employer] Work Phone: [facility] 12-20-2023 14:47-0400 Diastolic blood pressure 61 mm[Hg] Cristina Elias [employer] Work Phone: [facility] 12-20-2023 14:47-0400 Heart rate 74 /min Cristina Praisler-Wood [employer] Work Phone: [facility] 12-20-2023 14:47-0400 Respiratory rate 18 /min Cristina Praisler-Wood [employer] Work Phone: [facility] 12-20-2023 14:47-0400 SaO2% (BldA) [Mass fraction] 99 % Cristina Praisler-Wood [employer] Work Phone: [facility] 12-20-2023 14:47-0400 Systolic blood pressure 92 mm[Hg] Cristina Praisler-Wood [employer] Work Phone: [facility] 09-26-2023 13:14-0500 Body temperature 98.4 [degF] Dr. Blake Gonzalez Work Phone: [facility] 09-26-2023 13:14-0500 Body weight 59.[address] Blake Gonzalez Work Phone: [facility] 09-26-2023 13:14-0500 Diastolic blood pressure 76 mm[Hg] Dr. Blake Gonzalez Work Phone: [facility] 09-26-2023 13:14-0500 Heart rate 74 /min Dr. Blake Gonzalez Work Phone: [facility] 09-26-2023 13:14-0500 Respiratory rate 16 /min Dr. Blake Gonzalez Work Phone: [facility] 09-26-2023 13:14-0500 SaO2% (BldA) [Mass fraction] 96 % Dr. Blake Gonzalez Work Phone: [facility] 09-26-2023 13:14-0500 Systolic blood pressure 148 mm[Hg] Dr. Blake Gonzalez Work Phone: [facility] Encounters Encounter Date Encounter Type Care Provider Facility Start: 07-25-2025 End: 07-27-2025 ambulatory VIRGIE BURLAP SPREADER SEFFENS [facility] Start: 07-01-2025 End: 07-01-2025 [facility] Start: 06-09-2025 End: 06-09-[address] Blake Gonzalez MD [facility] Work Phone: Start: 06-09-2025 End: 06-09-2025 ambulatory Blake Gonzalez Facility:[facility] Start: 04-26-2025 Non-patient / Non-visit Dr. Blake yuen MD -[facility] Start: 04-26-2025 End: 04-26-2025 ambulatory Reanna POSEY Work Phone: -[facility] Start: 04-26-2025 End: 04-26-2025 Patient encounter procedure Reanna POSEY -[facility] Services Work Phone: Start: 04-26-2025 End: 04-26-2025 ambulatory Reanna Diaz Facility:[facility] Start: 04-08-2025 End: 04-08-2025 ambulatory TOMEKA GOMES [facility] Start: 01-13-2025 End: 01-13-2025 ambulatory [facility] Start: 12-17-2024 End: 12-17-2024 ambulatory CODY DELANEY [facility] Start: 12-11-2024 ambulatory [facility] Start: 10-28-2024 ambulatory Cody Crowrobert Facility: [facility] Start: 10-28-2024 End: 10-28-2024 ambulatory Cody [facility] Facility:[facility] Start: 10-16-2024 End: 10-16-2024 ambulatory TOMEKA GOMES [facility] Start: 09-06-2024 End: 09-06-2024 Emergency department [facility] Start: 07-31-2024 End: 07-31-2024 ambulatory TOMEKA GOMES [facility] Start: 12-20-2023 End: 12-20-2023 Patient encounter procedure Cristina LevinOsvaldo ARMSTRONG Work Phone: [facility] Comment on above: Viral URI with cough (Primary Dx) Start: 10-11-2023 Non-patient / Non-visit Dr. oBo Delaney Work Phone: [facility] Start: 10-11-2023 End: 10-11-[address] Cody Delaney Work Phone: [facility] Work Phone: Start: 10-11-2023 End: 10-11-[address] Cody Delaney Work Phone: [facility]-Cardiovascular Services Work Phone: Start: 09-26-2023 End: 09-26-[address] Blake Gonzalez Work Phone: [facility] Work Phone: Start: 09-26-2023 End: 09-26-[address] Blake Gonzalez Work Phone: [facility]-Laboratory Work Phone: Start: 09-26-2023 End: 09-26-[address] Blake Gonzalez Work Phone: [facility] Work Phone: Start: 08-16-2023 Emergency department patient visit BRENNAN BARROS [facility] Procedures Date Procedure Procedure Detail Performing Clinician Start: 07-26-2025 Urinalysis TOMEKA ROSALVA ANKI Comment on above: Result Comment: URIN ALYSIS Performed By: #### [id number] ####[facility],[address] [place] [address] Start: 07-25-2025 Urinalysis TOMEKA ROSALVA ANKI Comment on above: Result Comment: URIN ALYSIS Performed By: #### 2 [id number] #### [facility],[address] [facility] [address] Start: 10-11-2023 CT angiography of he ad and neck Dr. Cody Delaney Work Phone: Plan of Treatment Date Care Activity Detail Author Start: 05-17-2024 Influenza vaccination Influenza Vaccine (Season Ended) [facility] Start: 09-16-2023 Advance Directive Discussion Advance Directive Discussion [facility] Start: 09-16-2023 Behavioral Health Screening Behavioral Health Screening [facility] Start: 05-17-2023 Covid-19 Vaccine ( season) Covid-19 Vaccine ( season) [facility] Start: 2005 Pneumococcal Vaccine: 65+ (1 of 1 - PCV) Pneumococcal Vaccine: 65+ (1 of 1 - PCV) [facility] Start: 2000 RSV Vaccine (1 - 1-dose 60+ series) RSV Vaccine (1 - 1-dose 60+ series) [facility] Start: 1990 Shingrix Vaccine (1 of 2) Shingrix Vaccine (1 of 2) [facility] Start: 1985 Diabetes Screening Diabetes Screening [facility] Start: 12-16-1959 Urine microalbumin profile DTaP,Tdap,Td Vaccine (1 - Tdap) [facility] Ankle brachial press ure index [facility] CTA Head vessels and Neck vessels W contrast IV [facility] US Carotid arteries [facility] Payers Date Payer Category Payer Self-pay 2023 Unknown [employer]IMETIME [employer] H[employer] POS [id number] 2023-Present [phone] [address] [place] [address] O [id number] 2010 Unknown [id number] 1940 Unknown [id number] 1940 Unknown [id number] [id number] 1940 Unknown [id number] [id number] 1940 Unknown [id number] [id number] 1940 Unknown [id number] [id number] 1940 Unknown [id number] [id number] 1940 Unknown [id number] [id number] 1940 Unknown [id number] [id number] 1940 Unknown [id number] [id number] Unknown [id number] [id number] Unknown [id number] [id number] Unknown [id number] [id number] Unknown [id number] [id number] Unknown [id number] Social History Date Type Detail Facility Start: 09-26-2023 [facility] ever smoked [facility] Start: 1940 Sex Assigned At Male [facility] Start: 12-20-2023 Tobacco [facility] Never smoked tobacco [facility] Start: 12-20-2023 Tobacco use and exposure Smokeless tobacco non-user [facility] Start: 12-20-2023 History of Social function [facility] Start: 12-20-2023 Tobacco use panel [facility] Start: 1940 Sex Assigned At Not on file [facility] Start: 10-16-2023 Tobacco smoking stat [facility] Current some day smoker [facility] Clinical Notes 12-20-2023 to 07-25-2025 Note Date & Type Note Facility 07-25-2025 Note . MICRO - Microbiology PROCEDURE: Blood Culture (bacterial) [*1] SOURCE: Blood BODY SITE: COLLECTED DATE/TIME: 07/25/2025 09:45 EST RECEIVED DATE/TIME: 07/25/2025 17:30 EST START DATE/TIME: 07/25/2025 17:30 EST FREE TEXT SOURCE: PRELIMINARY REPORTS Preliminary Report [] Verified Date/Time/Personnel: 07/25/2025 18:59 EST Culture has been received in lab and is no growth to date. Routine cultures are held for 5 days. Performing Locations *1: This test was performed at: [address], [facility] , [facility] 07-25-2025 Note . MICRO - Microbiology PROCEDURE: Blood Culture (bacterial) [*1] SOURCE: Blood BODY SITE: COLLECTED DATE/TIME: 07/25/2025 09:33 EST RECEIVED DATE/TIME: 07/25/2025 17:30 EST START DATE/TIME: 07/25/2025 17:30 EST FREE TEXT SOURCE: PRELIMINARY REPORTS Preliminary Report [] Verified Date/Time/Personnel: 07/25/2025 18:59 EST Culture has been received in lab and is no growth to date. Routine cultures are held for 5 days. Performing Locations *1: This test was performed at: [address], [address] [place] [address] 06-09-2025 Progress note [facility] 06-09-2025 Progress note Note Date/Time June 09, 2025 4:29pm [facility] [address] [place] [address] OFFICE VISIT Date of Service: 06/09/25 MR#: [id number] Acct: [id number] Name: SABIHA WEBBER Rep #: [id number] : 1940 Provider: Dr. Blake Gonzalez MD Age/Sex: 84/M Location: [facility] Status: Signed Intake Vital Signs 06/09/25 16:10 Weight: 135 lb BP 144/79 H Blood Pressure Location Rt brachial Position Sitting Respiration 16 Pulse 86 Pulse Source Monitor Temp 98.2 F Temp Source Temporal Pulse Oximetry (%) 95 Oxygen Delivery Method room air Intake Visit Reasons: 1 YR F/U Chief Complaint: establish care. Is patient in pain?: Yes Allergies No Known Allergies Allergy (Verified 06/09/25 16:08) Medications ?Medication ?Instructions ?Recorded ?Confirmed ?Type acetaminophen 650 mg 650 mg PO Q8H PRN pain 02/2506/09/25 History tablet,extended release (Tylenol Arthritis Pain) folic acid 1 mg tablet 1 mg PO BID 02/25/23 5 History latanoprost 0.005 % eye drops 1 drp ophthalmic (eye) Q PM 02/25/23 06/09/25 History methotrexate sodium 2.5 mg tablet 12.5 mg PO QWEEK 09/0706/09/25 History atorvastatin 40 mg tablet 40 mg PO QHS #30 tabs 06/09/25 Rx lutein 20 mg capsule 20 mg PO QDAY 06/09/2506/09 History tamsulosin 0.4 mg capsule 0.4 mg PO QDAY 06/09/2505/18 History Have you fallen in the past year?: Yes PFSH Medical History Tobacco dependence Elevated serum creatinine Situational depression Rheumatoid arteritis HTN (hypertension) Glaucoma Benign prostatic hyperplasia Subclavian arterial stenosis Surgical History History of prostate surgery (~2016) H/O inguinal hernia repair (~2010) H/O cataract extraction (~2015) Family History Father Myocardial infarction Mother CVA (cerebral vascular accident) Brother Cancer lung ca. Sister COPD (chronic obstructive pulmonary disease) Sister Dementia Other Sudden cardiac Social History Smoking Status: Current some day smoker HPI HPI HPI: SABIHA WEBBER, is a 84 M who presents to the office today for yearly follow up of bilateral carotid stenosis, R>L. He has been doing well overall since his last visit with no new medical concerns or events. He denies numbness/weakness/vision loss/speech difficulty. He has been slowing down in general this past year, less active and just not as energetic/strong as before. ROS General General: Yes fatigue and weakness (legs); No weight change, appetite, colon cancer or breast cancer HEENT HEENT: Yes difficulty swallowing; No eye injury, eye surgery, swollen glands or hoarseness Endo Endocrine: No thyroid disease, diabetes mellitus, thyroid cancer, Hair loss, heat intolerance or cold intolerance Skin Skin: No rash or changing moles Musc Musculoskeletal: Yes back problems, arthritis, rheumatoid arthritis and joint pain; No gout Cardio Cardiovascular: Yes high blood pressure; No murmur, pacemaker, heart disease, atrial fibrillation, heart attack, heart stent, palpitations, shortness of breath with exertion or chest pain Psych Psychiatric: Yes depression; No anxiety or hearing voices Resp Respiratory: Yes shortness of breath, No sleep apnea, No cough, No COPD, No asthma, No emphysema and No wheezing Gastro Gastrointestinal: No abdominal pain, No nausea or vomiting, No diarrhea, No constipation, No blood in stool, Yes acid reflux, No hemorrhoids, No ulcers, No gallbladder problem and No black,tarry stools Mina Hematologic: No blood thinners, No blood disorders, No bleeding, No anemia and No blood clots Neuro Neurologic: No system reviewed and no additional complaints, except as documented, No as per HPI, No abnormal gait, No abnormal hearing, No abnormal movements, No abnormal speech, No behavioral changes, No burning sensations, Yesconfusion, No convulsions, Yes disequilibrium, Yes dizziness, No localized weakness, No frequent falls, No headache(s), No lack of coordination, No loss ofvision, No memory loss, Yes numbness, Yes other visual disturbances, No radicular pain, No restless legs, No sensory deficit, No syncope, Yes tingling, Yes tremor(s), Yes weakness (legs) and No other Exam Const General: cooperative, healthy appearing, comfortable, no acute distress and welldeveloped Nutritional Appearance: well nourished Orientation: alert, awake and oriented x3 HENMT Head: normocephalic and atraumatic Ears: hearing grossly normal bilaterally Nose: external nose normal Eyes General: appearance normal, both eyes and all related structures EOM: EOM intact bilaterally Neck Neck: normal visual inspection, full ROM, no lymphadenopathy and trachea midline Thyroid: thyroid normal Lymphatic: no lymphadenopathy noted Resp Effort & Inspection: normal respiratory effort, able to speak in complete sentences, symmetric chest movement, no audible wheezes, not labored, no stridorand no use of accessory muscles Auscultation: clear to auscultation bilaterally Cardio Rate: regular rate Rhythm: regular rhythm Heart Sounds: no murmurs Bruits: carotid bruit (right) Pulses: brachial pulses present, radial pulses present, posterior tibial pulses present and dorsalis pedis present Skin General: no rashes or lesions noted and no erythema Wounds: no wounds Neuro Cranial Nerves: CN's II-XI intact bilaterally and EOM intact bilaterally Speech: speech normal Gait: normal gait Motor: strength 5/5 throughout Sensory Exam: no sensory deficits noted Psych Appearance: grossly normal and well kempt Mental Status: mental status grossly normal Mood: congruent mood Speech and Movement: speech and movement normal Thought Content: normal Judgment: judgment good Coding Level of Care Code Off vis,est,level 3 Diagnoses Carotid stenosis, right I65.21 Assessment and Plan Assessment and Plan (1) Carotid stenosis, right: Status: Chronic Comment: Duplex- Interpretation Summary Moderate (50-69%) stenosis right extracranial internal carotid. Limited due to calcific shadowing. Mild (<50%) stenosis left extracranial internal carotid. The Right vertebral is patent and antegrade. The Left vertebral flow is retrograde. Plan: -stable duplex within low end of moderate category -next study 1 year, return at 2 year if stable Orders: Orders Carotid Duplex Ultrasound 1 Year I65.21 - Occlusion and stenosis of right carotid artery Clinical Quality Measures Falls Risk Screening/Assistive Devices Have you fallen in the past year?: Yes 06/10/25 6256 <Electronically signed by Blake Lynn> Date _ Blake Joel Signature: Date (if applicable) CC: ~ [facility] [employer] Work Phone: [phone] 278-108712-22-2024 NoteDischarge Instructions Discharge Summary [address] [place] [address] [id number] 09/06/2024 Patient: SABIHA WEBBER Sex: Male : 1940 Age: 83y Thank you for visiting [facility]. 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 [address] [phone] 09/06/2024 Patient: SABIHA WEBBER Sex: Male : 1940 Age: 83y Thank you for visiting [facility]. You have been evaluated today by [...] tripped, or lost your balance. If your fallhad been because of fainting or a seizure, you might need other tests. It is normal to feel sore and tight in your muscles and back the next day, and not just the musclesyou injured. Remember, all the parts of your [...] get a concussion from your head suddenly jerkingforward, backward, or sideways when you fall. Concussions [...] in preventing falls. If (more content not included)...[facility]-05-2024 Instructions* Patient Instructions* Cristina Elias APRN.COMMERCIAL INSTALLER - 12/20/2023 3:07 PM EDT ASSESSMENT/PLAN: 1. Viral URI with cough - ICD9: 465.9, ICD10: J06.9 - Discussed viral etiology and rationale for treatment. - Symptomatic treatment with prn analgesia - Supportive care with fluids and rest - The patient may also use OTC cough and cold meds as needed. - BENZONATATE 100 MG CAPSULE Treatment for Viral Upper Respiratory Tract Infections Your body will kill off the virus by itself. Additionally, you can prime your body's immune system.This may help you get better more quickly. Drink lots of fluids Make sure you are eating well Get plenty of rest We do not have any medications that kill off these viruses. Antibiotics are used to treat bacterialinfections; however, they are not active against viral infections. There are some things that mighthelp you feel better, though. Vaporizers, humidifiers, hot showers, and hot fluids help open respiratory and sinus passages [place] Nasal Emma may offer relief of nasal and head congestion Jaun's Vapor Rub may relieve congestion Tylenol and Advil help control fevers and headaches Salt water gargles help relieve sore throats Chloraceptic spray or throat lozenges may also help relieve sore throat symptoms Occasionally, viral infections turn into something more serious. You should see your doctor or return to the Urgent Care if: You have fevers for longer than five days You have fevers above 102 degrees You are still sick after 10 days You have shortness of breath or wheezing After several days you are getting worse rather than better [facility] History of Present illness Narrative* Bess Wallace - 12/20/2023 3:02 PM EDT Subjective Cough Associated symptoms include sore throat and myalgias. Pertinent negatives include no chest pain, nochills, no ear pain, no headaches and no shortness of breath. Pt presents to clinic with on December 20, 2023 for CC: cough and nasal drainage x 2 days Productive cough that is intermittent Nasal congestion and runny nose Sore throat- postnasal drip Body aches due to RA, not present illness Sleeping well No sick exposures Meds: cold and flu capsules Does not want to do a flu and covid test Used vix vapor rub Denies: sinus pain, ear pain, n/v, diarrhea, constipation, headache, dizziness, fever, chills, sweats, fatigue Eating and drinking well Review of Systems Constitutional: Negative for chills, diaphoresis, fever and malaise/fatigue. HENT: Positive for congestion and sore throat. Negative for ear discharge, ear pain and sinus pain. Eyes: Negative for pain. Respiratory: Positive for cough and sputum production. Negative for shortness of breath. Cardiovascular: Negative for chest pain. Gastrointestinal: Negative for abdominal pain, constipation, diarrhea, nausea and vomiting. Genitourinary: Negative for dysuria. Musculoskeletal: Positive for myalgias. Neurological: Negative for dizziness and headaches. BP 92/61 Pulse 74 Temp 36.3 C (97.4 F) Resp 18 Wt 62.9 kg (138 lb 10.7 oz) SpO2 99% No past medical history on file. No past surgical history on file. ALLERGIES Patient has no known allergies. MEDICATIONS atorvastatin (LIPITOR) 40 mg tablet Take 40 mg by mouth daily at bedtime. folic acid 1 mg tablet Take 2 tablets by mouth every afternoon. latanoprost (XALATAN) 0.005 % ophthalmic solution Use 1 Drop in both eyes daily at bedtime. methotrexate 2.5 mg tablet Take 12.5 mg by mouth. No family history on file. Social History Tobacco Use Smoking status: Never Smokeless tobacco: Never Objective Physical Exam Constitutional: General: He is not in acute distress. Appearance: Normal appearance. He is not ill-appearing, toxic-appearing or diaphoretic. HENT: Head: Normocephalic. Right Ear: Tympanic membrane, ear canal and external ear normal. There is no impacted cerumen. Left Ear: Tympanic membrane, ear canal and external ear normal. There is no impacted cerumen. Nose: Congestion and rhinorrhea present. Mouth/Throat: Mouth: Mucous membranes are moist. Pharynx: Posterior oropharyngeal erythema present. No oropharyngeal exudate. Eyes: General: Right eye: No discharge. Left eye: No discharge. Conjunctiva/sclera: Conjunctivae normal. Cardiovascular: Rate and Rhythm: Normal rate and regular rhythm. Heart sounds: Normal heart sounds. No murmur heard. No gallop. Pulmonary: Effort: Pulmonary effort is normal. No respiratory distress. Breath sounds: Normal breath sounds. No stridor. No wheezing, rhonchi or rales. Chest: Chest wall: No tenderness. Neurological: Mental Status: He is alert and oriented to person, place, and time. Psychiatric: Mood and Affect: Mood normal. Behavior: Behavior normal. Thought Content: Thought content normal. Judgment: Judgment normal. ASSESSMENT/PLAN: 1. Viral URI with cough - ICD9: 465.9, ICD10: J06.9 - Discussed viral etiology and rationale for treatment. - Symptomatic treatment with prn analgesia - Supportive care with fluids and rest - The patient may also use OTC cough and cold meds as needed. - BENZONATATE 100 MG CAPSULE - Offered viral testing, patient declined. CHERYL Brand TEACHING PROVIDER (Physician/PA/BURLAP SPREADER) NOTE OF PERSONAL INVOLVEMENT IN CARE: I have personally seen and examined the patient and performed the medical decision-making components. I have reviewed the Advanced Practice Registered Nurse (BURLAP SPREADER) Student's documentation and verified the findings in the note as written. Any additions or changes are noted in bold/italics. 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 [facility] Work Phone: Evaluation note* Diagnosis Viral URI with cough- Primary Acute upper respiratory infections of unspecified site documented in this encounter [facility] noteNo assessment information availableWWVUMed[facility] Work Phone: Evaluation note* Diagnosis Onset Date Resolution Status Admit Date Carotid stenosis, right chronic S eptember 2024 3:59pm [facility] Work Phone: Reason for referral (narrative)No reason for referral information availableWWVUMedicine [facility] Work Phone: Summary Purpose Family History No Family History Records Found Relationship Condition Age at Onset Recorded Date/T sebastián Not Specified Sudden cardiac Unknown father Myocardial [...] Visit Carotid stenosis, ri ght Chief Complaint Admit Date R ICA STENOSIS April 26, 2025 12 :53pm Chief Complaint Admit Date R ICA STENOSIS April 26, 2025 12 :53pm 1 YR F/U June 09, 2025 3:59pm Reason for Visit Admit Date Carotid stenosis, right June 09, 2025 3:59pm Additional Source Comments (unrecognized sect ion and content) No Status Records FoundNo Status Records FoundNo Status Records FoundNo Status Records FoundNo Status Records Found INFORMATION SOURCE (unrecogn ized section and content) DATE CREATED AUTHOR 08/19/2023 Brannon Carmichael [facility] DATE CREATED AUTHOR AUTHOR'S ORGANIZ ATION 12/20/2024 [facility] DATE CREATED AUTHOR AUTHOR'S ORGANIZ ATION 06/11/2025 [facility] DATE CREATED AUTHOR AUTHOR'S ORGANIZ ATION 07/26/2025 [facility] DATE CREATED AUTHOR AUTHOR'S ORGANIZ ATION 07/28/2025 [facility] Care Teams (unrecognized sec tion and [...] MD Primary Care Provider Active Team Status: Active Member Role/Relationship Status Dates No Primary Care Physician Primary Care Provider Active Team Status: Inactive Member Role/Relationship Status Dates TATY Maciel Attending Provider Active Star t: April 26, 2025 End: April 26, 2025 TATY Maciel Referring Provider Active Star t: April 26, 2025 End: April 26, 2025 No Primary Care Physician Primary Care Provider Active Start: April 26, 2025 End: April 26, 2025 Team Status: Active Member Role/Relationship Status Dates No Primary Care Physician Primary Care Provider Active Start: April 26, 2025 Dr. Blake Gonzalez MD Attending Provider Active S tart: April 26, 2025 Team Status: Active Member Role/Relationship Status Dates No Primary Care Physician Primary care physician Activ e Team Status: Inactive Member Role/Relationship Status Dates TATY Maciel Attending physician Active Sta rt: April 26, 2025 End: April 26, 2025 TATY Maciel Referring Provider Active Star t: April 26, 2025 End: April 26, 2025 No Primary Care Physician Primary care physician Activ e Start: April 26, 2025 End: April 26, 2025 Team Status: Active Member Role/Relationship Status Dates No Primary Care Physician Primary care physician Activ e Start: April 26, 2025 Dr. Blake Gonzalez MD Attending physician Active Start: April 26, 2025 TATY Maciel Referring Provider Active Star t: April 26, 2025 Team Status: Inactive Member Role/Relationship Status Dates No Primary Care Physician Primary care physician Activ e Start: June 09, 2025 End: June 09, 2025 No Primary Care Physician Referring Provider Active Start: June 09, 2025 End: June 09, 2025 Dr. Blake Gonzalez MD Attending physician Active Start: June 09, 2025 End: June 09, 2025 Goals (unrecognized section and content) Goals may be documented in a n alternate sectionGoals may be documented in an alternate sectionGoals may be documented in an alternate sectionGoals may be documented in an alternate section Source Comments (unrecognize d section and content) In the event this informatio n is protected by the Federal Confidentiality of Alcohol and Drug Abuse Patient Records regulations: The Federal rules restrict any use of the information to criminally investigate or prosecute any alcohol or drug abuse patient.[facility] Reason for Visit (unrecogniz ed section and content) Reason Comments Cough Runny nose, congesti on x2 days FOR RECORDS PERTAINING TO PATIENTS WHO ARE [...] BE BASED ON THE PRIMARY CLINICAL RECORDS. [employer] provides no warranty or guarantee of the accuracy or completeness of information in this document.
[2025-09-01] MEDS: Lactated Ringers 1,000 ML 15 ML IV (06:45)
--- NOTE | 2025-09-01 06:59 | PCM.PRE.AN2 ---
ASA Classification* ASA Classification ASA Classification: 3 Assessment & Plan Anesthesia* Anesthesia Assessment Anesthesia Assessment: Discussed sedation and/or anesthesia options, risks, benefits, and alternatives with patient/parents/legal guardian/POA. Questions invited. The patient/parents/legal guardian/POA seems to understand and agrees to proceed with anesthesia plan. Reviewed the physical assessment, medical history, allergy history and patient home medications list prior to surgery/procedure/anesthetic and documented any changes. Performed airway and anesthesia risk assessments. Anesthesia Type Anesthesia Type: General History Source History Obtained from:: Patient and Chart Anesthesia Focused Assessment* Temperature: 98.1 F Pulse Rate: 92 Blood Pressure: 160/88 Respiratory Rate: 16 Pulse Ox: 96 Oxygen Delivery Method: Room Air Airway Assessment Mouth opens: >3 cm Mallampati Score: III Teeth Condition: Missing (Patient missing a couple of molars on the left lower jaw. Everything else is tight.) Neck Range of motion (ROM): Limited ROM (Somewhat Decreased) Labs Anesthesia Preop lab: CBC WBC, (4.4-11.0) 6.6 k/mm3 09/01/12, 13:12 RBC, (4.6-6.2) 4.78 M/mm3 09/01/12, 13:12 Hgb, (13.0-16.5) 15.2 g/dl 09/01/12, 13:12 Hct, (40-54) 45.8 % 09/01/12, 13:12 Plt Count, (150-450) 252 K/mm3 09/01/12, 13:12 CHEMISTRY Potassium, (3.5-5.1) 4.5 mmol/L 09/01/12, 13:12 Sodium, (136-145) 138 mmol/L 09/01/12, 13:12 BUN, (7-18) 26 mg/dL H 09/01/12, 13:12 Creatinine, (0.70-1.30) 1.18 mg/dL 09/26/23, 14:25 Glucose, (70-110) 73 mg/dL 09/01/12, 13:12 COAG Pre-Assessment Diagnosis/Proposed Procedure Planned Operative Procedure(s): ROBOTIC SIMPLE PROSTATECTOMY Anesthesia History 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 When Was Last Pacemaker Check QUESTION #4 FULL TEXT: You/Your Family Experience fever (hyperthermia) with Anesthesia Last Oral Intake Last Oral intake: Last Oral Intake NPO since 21:00 09/01/25 06:40 Meds taken in AM with sips of water? Meds patient instructed to take am of surgery PONV PONV - websphere process server developer: PONV - websphere process server developer Female No 08/27/25 08:40 HX of Motion Sickness No 08/27/25 08:40 HX of N/V After Surgery No 08/27/25 08:40 Non-Smoker Yes 08/27/25 08:40 Duration of Surgery greater Yes 08/27/25 08:40 than 60 minutes Number of Risk Factors 2 08/27/25 08:40 PONV Score Moderate Risk 08/27/25 08:40 Height & Weight Height & Weight: Anesthesia: Height & Weight Height 5 ft 5 in 09/01/25 06:40 Weight: 58.513 kg 09/01/25 06:40 Body Mass Index (BMI) 21.4 09/01/25 06:40 Respiratory Assessment Respiratory Assessment - websphere process server developer: Respiratory Tract Infection Hx - websphere process server developer Hx Respiratory Tract Infection No 08/27/25 08:40 STOP Sleep Apnea STOP Sleep Apnea - websphere process server developer: STOP Sleep Apnea - websphere process server developer Hx Hypertension No 08/27/25 08:40 Hx Sleep Apnea No 08/27/25 08:40 CPAP BIPAP Do you snore loudly (louder Yes 08/27/25 08:40 than talking or can be heard Do you often feel tired/ No 08/27/25 08:40 fatigued/ sleepy during daytime? Has anyone observed you stop Yes 08/27/25 08:40 breathing during sleep? STOP Results Positive 08/27/25 08:40 QUESTION #5 FULL TEXT : Do you snore loudly (louder than talking or can be heard through closed doors)? 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 Specify any problems Hx of Preganancy in last 3 N/A 08/27/25 08:40 Months Nurse Filling Out Transfusion DSCHRIBER 08/27/25 08:40 & Questions: Date: 08/27/25 08/27/25 08:40 Time: 08:44 08/27/25 08:40 Patient unable to answer at this time (ie. confused, unrespo /Reproduction History /Reproductive History - websphere process server developer: /Reproductive Hx- websphere process server developer Hx Now No 08/27/25 08:40 Gestational Age (in weeks): EDC: Hx Hx Para Hx Section SAB No 08/27/25 08:40 Does the father of the baby or his family experience fever w Father of the baby Malignant Hypertension history comment Active Medications Active Medications: Current Medications Generic Name Dose Route Start Last Admin Trade Name Freq PRN Reason Stop Dose Admin Cefazolin Sodium 2 gm/ Sodium 110 mls @ 200 mls/hr 09/01/25 07:00 Chloride IV 09/01/25 07:32 INTRAOP ONE Lactated Ringer's 1,000 mls @ 15 mls/hr 09/01/25 06:15 09/01/25 06:45 IV 15 mls/hr .Q48H ULICES Administration PFSH Medical History (Updated 08/27/25 @ 08:59 by Denisse Martinez) Wears glasses Fall Ambulates with cane Walker as ambulation aid Rheumatoid arthritis UTI (urinary tract infection) Prostate disease Indwelling urethral catheter present High cholesterol Back pain Shingles Former smoker History of pain when walking Elevated serum creatinine Glaucoma Benign prostatic hyperplasia Home Medications ?Medication ?Instructions ?Recorded ?Last Taken ?Type acetaminophen 650 mg 650 mg PO Q8H PRN pain 02/25/23 Unknown History tablet,extended release (Tylenol Arthritis Pain) folic acid 1 mg tablet 2 mg PO DAILY 02/25/23 Unknown History latanoprost 0.005 % eye drops 1 drp ophthalmic (eye) QPM 02/25/23 Unknown History methotrexate sodium 2.5 mg tablet 12.5 mg PO WE 02/25/23 Unknown History atorvastatin 40 mg tablet 40 mg PO QHS #30 tabs 12/08/24 Unknown Rx lutein 20 mg capsule 20 mg PO QDAY 06/09/25 Unknown History tamsulosin 0.4 mg capsule 0.4 mg PO QHS 06/09/25 Unknown History finasteride 5 mg tablet 5 mg PO DAILY 08/27/25 Unknown History prednisone 10 mg tablet 10 mg PO DAILY PRN RA 08/27/25 Unknown History tramadol 50 mg tablet 50 mg PO TID PRN PRN pain 08/27/25 Unknown History gabapentin 100 mg capsule 100 mg PO BID 09/01/25 Unknown History Allergy/AdvReac Type Severity Reaction Status Date / Time No Known Allergies Allergy Verified 09/01/25 06:27 Family History Father Myocardial infarction Mother CVA (cerebral vascular accident) Brother Cancer lung ca. Sister COPD (chronic obstructive pulmonary disease) Sister Dementia Other Sudden cardiac Surgical History (Updated 08/27/25 @ 08:59 by Denisse Martinez) Hx of colonoscopy History of prostate surgery H/O inguinal hernia repair (~2010) H/O cataract extraction (~2015) Social History Smoking Status: Former smoker Review of Systems (Anesthesia) ROS Narrative System reviewed and no additional complaints, except as documented.
--- NOTE | 2025-09-01 07:30 | PROST_PTH ---
PATIENT: SABIHA WEBBER LOC: [facility] [place] U#:[id number] AGE/SX: 84/M ROOM: RE09/01/[address]: Dr. Issac Maravilla MD : 1940 BED: DIS: 09/02/2025 SPEC #: [id number] RECD: 09/01/25 11:20 STATUS: KAYDEN REQ #: [id number] LOGAN: 09/01/25 07:[address]: Issac Maravilla DEPT: SURGICAL PATHOLOGY RECD BY: Alec Chavez ENTERED: 09/01/25 15:42 SP TYPE: PROSTATE OTHR DR: Kaylee Primary Care Phys Tissues: A - Prostate, NOS Procedures: Surgery Specimen Level V HEADER OPERATION: Laparoscopic robotic simple prostatectomy PRE-OP DIAGNOSIS: Benign prostatic hyperplasia TISSUE SUBMITTED: A- Prostate MICROSCOPIC DIAGNOSIS A. Prostate, simple prostatectomy: Benign prostatic tissue. Acute inflammation, patchy. MICROSCOPIC DESCRIPTION Slides are reviewed. GROSS DESCRIPTION A. Received in formalin labeled with the patient's name and date of . Designated as prostate is a 64.9 g schaffer-pink, shaggy, nodular and disrupted prostate in multiple pieces, 6.5 x 5.5 x 3.6 cm in aggregate. A few lambert metallic clip like portions of hardware are identified. Sectioning reveals pale schaffer-pink to yellow, rubbery, edematous cut surfaces with focal erythema, and possible calculi. Integration Developer sections are submitted in 10 cassettes. AR 09/01/2025 CPT:96933
[2025-09-01] MEDS: Cefazolin 1 GM/5 ML Vial 2 GM IV (07:48)
[2025-09-01] MEDS: dexMEDEtomidine 200 MCG/2 ML ML IV (07:49)
[2025-09-01] MEDS: fentaNYL 100 MCG/2 ML Ampul IV (08:29)
[2025-09-01] MEDS: Lidocaine 1% (5 ml sdv) 5 ML Vial 15 ML IV (09:59)
--- NOTE | 2025-09-01 10:09 | DCINST_ITS ---
Discharge Instructions DC O2, CPAP, BIPAP needs Home O2 Discharge instructions: No Dressing / Incision Discharge Activity: May Not Drive and May Shower Dressing / Incision Call your doctor if you observe: Fever of 101 or Higher and Uncontrolled pain Cleanse incision/area with: Soap & Water and Keep Dressing Clean & Dry Catheter: Ortiz to leg bag and Ortiz to large bag Drain: [place] Follow Up Care Please Follow Up With: Issac Maravilla MD When: Call [phone] for an appointment Test Results: Test results from this visit will be discussed in further detail at your follow- up appointment, if applicable. Discharge Plan Admission Primary Reason for Your Visit: Simple robotic prostatectomy Attending Provider: Issac Maravilla Primary Care Provider: Care Physician,No Primary Instructions Print Language: Greenlandic Discharge Orders/Prescriptions Prescriptions: New oxycodone 5 mg tablet 5 mg PO Q6H PRN (Reason: pain) 7 Days Qty: 20 0RF ciprofloxacin HCl 500 mg tablet 500 mg PO BID Qty: 14 0RF docusate sodium [Colace] 100 mg capsule 100 mg PO BID Qty: 20 0RF Continued folic acid 1 mg tablet 2 mg PO DAILY acetaminophen [Tylenol Arthritis Pain] 650 mg tablet extended release 650 mg PO Q8H PRN (Reason: pain) latanoprost 0.005 % drops 1 drp ophthalmic (eye) QPM Rx Instructions: both eyes methotrexate sodium 2.5 mg tablet 12.5 mg PO WE lutein 20 mg capsule 20 mg PO QDAY Rx Instructions: give with meal/snack prednisone 10 mg tablet 10 mg PO DAILY PRN (Reason: RA) tramadol 50 mg tablet 50 mg PO TID PRN PRN (Reason: pain) gabapentin 100 mg capsule 100 mg PO BID atorvastatin 40 mg tablet 40 mg PO QHS Qty: 30 5RF Discontinued tamsulosin 0.4 mg capsule 0.4 mg PO QHS finasteride 5 mg tablet 5 mg PO DAILY Referrals / Follow Up: Issac Maravilla MD [Med Staff - Active Staff, Urology] Care Physician,No Primary [Primary Care Provider, Medical] Disposition Disposition (needs filled in before D/C Order can be placed): Home, Self Care
--- NOTE | 2025-09-01 10:19 | OP.PCM_ITS ---
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 Post-Operative Diagnosis: The same Surgery/Procedure Performed: Laparoscopic robotic assisted simple prostatectomy car salter: Yes Case Assembler: [place] Tasks completed by speech correction assistant: Opening, Closing, Opening & closing, Harvesting grafts, Dissecting tissue, Removing tissue, Implanting device, Altering tissue, Insert Trochanter, Hemostasis: Clamp, Hemostasis: Tie, Hemostasis: Electrocautery, Trocar, Retracting and Other Type of Anesthesia: General RN Documented Start/Stop Times: Operation Date: 09/01/25 07:30 Case Time Into Pre-Op 09/01/25 06:05 Out of Pre-Op 09/01/25 07:33 Anesthesia Start 09/01/25 07:38 Into Room 09/01/25 07:38 Procedure Start 09/01/25 08:09 Procedure Start Time: 08:09 Procedure Stop Time: 10:20 Select all DRAINS/GRAFTS/IMPLANTS that apply: Drains Drain details: 22 [place] three-way Oritz Special Medications: None Estimated Blood Loss: 50 cc Specimen collected: Yes Description of specimen(s) removed: Prostate adenoma Description of surgery: Indication this is an 84-year-old male with a enlarged prostate with BPH has had retention of urine is not able to urinate he was found to have an enlarged obstructing prostate so organ to proceed with a simple robotic prostatectomy to remove the obstructing adenoma and hopefully restore normal urination. Patient understand the risk of surgery is bleeding infection failure to the surgery to work unable to urinate afterwards postop requiring a catheter long-term or intermittent catheterization. Patient was taken back to the operating room after induction of anesthesia he was placed supine on the table he was intubated and then the existing catheter was removed the penis and testicles and lower abdomen were prepped and draped in usual sterile fashion he was placed in dorsolithotomy position on the surgical table ensuring that all pressure points were padded we did a tilt test to make sure he did not slide off the table, we then prepped and draped the patient for a robotic approach to the bladder. Using 10 cc of lidocaine the skin was infiltrated above the umbilicus to create a wheal and then made an incision above the umbilicus with a 15 blade knife dissected down to the anterior fascia with hemostat identified the fascia and then using a Veress needle the Veress needle was then advanced through the anterior fascia into the peritoneal cavity after the second click then we aspirated the Veress needle to ensure correct position and then insufflated the abdomen with CO2 gas. Once the abdomen was insufflated with CO2 gas then we used a bait bladeless trocar to going with the robotic 8 mm trocar above the umbilicus and advanced this through the umbilicus into the abdomen. Once were inside the abdomen we used the 0 degree lens robotic camera to go into the abdomen and inspected no obvious injury structures were normal within the abdomen then after inspecting the abdomen and then we marked out our other sites organ to place a trocar on the right side and a trocar in the left side for robotic arms and the trocar in the umbilicus will be the camera trocar and then we placed an air seal port bilaterally so we first placed a first trocar infiltrated the skin with lidocaine and advanced the needle into the abdomen we could see the needle poking into the peritoneum and then we made incision in the skin and then we advanced a trocar through the skin through the peritoneum into the peritoneal cavity. Once this trocar was placed then we went to the other trocar site we infiltrated the skin with lidocaine and advanced the needle into the peritoneal cavity making sure it is safe to go in and then we placed a second trocar into the peritoneal cavity. Then we looked in the lateral wall of the abdomen and we decided to place our AirSeal port made an incision in the site for the AirSeal port this was can be used by the assistant auto center manager Rey to pass sutures and to suction during the case we advanced the 15 1012 AirSeal port into the abdomen under direct visualization and once this was placed then we initiated the AirSeal port and with continuous-flow AirSeal port. The patient was then placed in steep Trendelenburg we then brought in the robot over the patient and then docked the robot arm to the trocars and then under direct visualization station we brought in the scissors and then there direct visualization was brought in the ProGrasp scissors in the right arm and the ProGrasp in the left arm and then the assistant auto center manager will use the suction port through the AirSeal port for suction. After inside the abdomen the first thing that was necessary was to release some adhesions between the colon and the lateral wall of the bladder once this was released the lateral colon and appendix were released off the bladder wall and then I could see the bladder in the midline. The assistant auto center manager then filled the bladder up with a 300 mL of normal saline this distended the bladder and then in the midline using electrocautery the bladder was opened we went through the peritoneal layer layer of the serosal layer and then through the muscle and then finally through the mucosal layer of the bladder opened up the bladder in the midline. Next up was attacked the bladder laterally using a Andres needle we find a safe place to go and laterally to the inferior epigastric artery and we advanced a Andres needle in the direct visitation into the peritoneal cavity the needle was then grabbed by the scissors and then used to retract we went through the lateral edge of the bladder and then put the Andres needle back up and so the the Nereida was then clamped on both the edges of the suture to then lateral retract the bladder on the right side than the left side we did the same thing we found a safe spot to come into the left lower abdomen with a Andres needle grab the Andres needle and then put it through the lateral edges of the bladder and then retracted the bladder laterally once the retraction of the bladder was sufficient then we started working into the bladder and the bladder but opened in the midline to keep beetles warm up to the bladder edges laterally we then went into the the bladder and we saw the the BPH adenoma prostate then first made an incision in the peritoneum mucosa working my way circumferentially around the urethra to get down to the adenoma. The adenoma on the patient's left side was much larger than the than the right side adenoma once I dissected down to the adenoma then we identified the avascular plane between the adenoma and the prostatic pseudocapsule between the adenoma and the prostate use electrocautery to go through the muscle layers to get down to the adenoma and then was slowly dissected inferior to the adenoma the assistant auto center manager would retract the adenoma superiorly and I would retract inferiorly and then we would we went through this bloodless plane to go inferiorly as possible towards the urethra and sphincter inferior to the adenoma we dissected the left side adenoma first and then work towards the right side adenoma and then using the retraction on the adenoma superiorly and lateral retraction on the prostate capsule we continued following this is a avascular plane around the adenoma as deep as possible working away from the 6 o'clock position to the 5:00 3:00 and then finally to the anterior part of the adenoma working away towards the sphincter complex in order to dissect out the adenoma so that with the Endo it could be freed up once we got anteriorly then we had to pull back and we went back underneath the adenoma and then worked our way to the right side and then worked her way laterally on the right side and the adenoma again retracting the adenoma and the medially retracting the prostate capsule laterally to free up the adenoma as we went deeper inside the prostate and finally we got to the anterior part of the prostate came to the anterior commensurate with electrocautery to dissect into the adenoma to free up the anterior part of prostate from the adenoma then d ecided to split the prostate in half we the patient had a catheter put in a ready at the beginning of the case it was a new catheter I left the balloon up but did not deflate the balloon and then incised the mucosa and splitting the adenoma in half so that the right and the left side were separate this allowed me to then dissect only the right adenoma first it was a smaller adenoma was quite adherent as I kept working my way to the adenoma I could not get around the edges of it so we decided to break up the adenoma into smaller little pieces and this allowed me then to finally get to the bottom of the adenoma which was attached to urethral strep and then very carefully I dissected the adenoma off the urethral strip and then the the adenoma came out of note also during the dissection the patient did have a prior UroLift procedure this was done by another surgeon long time ago and I did come across several UroLift clips the adenoma was being removed and these clips were then removed one by one and some of the clips were removed manually and then some of the other clips were attached to the adenoma these were left attached to the adenoma 1 site has successfully then enucleated the right adenoma then we went to the left adenoma I went underneath the adenoma and anterior the adenoma and then very carefully worked anterior trying to roll the adenoma towards me and I was able then to get down to the urethral complex and then identified the urethral strip but then the urethral strip was cut very carefully and then then I released the adenoma from the left side and at this point the adenoma pieces the right adenoma broken with a bunch of little pieces this was then put in Endo Catch bag and then the left adenoma was then put in Endo Catch bag as well make sure that all the pieces were put in the Endo Catch bag and then the Endo Catch bag was then closed up and left in the abdomen for the end of the case we went back and this now we inspected the cavity where both the adenoma were and this was the cavity that was open cavity can see the urethra complex and the urethra we irrigated and suctioned out the cavity and then identified some minor bleeding use electrocautery to cauterize is much as possible and then within the cavity I placed Surgiflo and left the Surgiflo and there for about 5 minutes to allow for to help with hemostasis after the surgical was left in there then we suctioned out the Surgiflo there was only a minor amount of oozing at this point and I decided to proceed with the reconstruction of the bladder neck between the bladder and the urethra we used a 3 oh V-Loc stitch and started at the bladder neck at the 6:00 I placed a stage stitch at the bladder neck and then I ran the stitch coming from the bladder neck to the urethra so I ran it inside out on the urethra and outside and in the bladder neck slowly approximating the bladder neck to the urethral complex all the way working from the 6 o'clock position to the 12 o'clock position in the left side this is the first V-Loc stitch then I switched over to the second V-Loc stitch and I ran in the second side I used a V-Loc stitch placed it on the bladder neck secured this to the loop and then did the ureter approximating stitch on the the right side bringing the mucosa of the bladder down to the urethral complex we would follow the catheter when we did the stitches onto the urethra and then eventually reconstructed the bladder next to advance the mucosa circumferentially down to the urethra complex to cover the gaps from the adenoma resection. This point the large catheter was removed and then we put into a 22 [place] three-way irrigating catheter this was advanced under direct visualization and then once the catheter was then we inflated 30 cc in the balloon and then the lateral pena of the bladder were released the Andres needles were then released off of the lateral pena of the bladder and then we proceeded with closing up the bladder in the midline I used a 2 oh V-Loc stitch started the stitch inferior to the bladder and bladder incision and then slowly working my way up the bladder we closed the bladder in the midline with a continuous fashion using the 2 oh V-Loc stitch once this was closed continuously then left the end of the stitch at the top edge of the bladder closure cut off and then the the suture was bent to allow it to come out the trocar and then went with the assistant auto center manager and then removed the suture from the trocar over the 1012 mm trocar we then closed the second layer of the bladder using a 0 Vicryl stitch again using surgeons not to start a stitch at the bottom and then we did a continuous stitch all the way up following along the bladder to close the bladder and a second layer and then we tied the 0 Vicryl to the 2 oh V-Loc at the top and and then I buried the stitch and cut the ends of the sutures off of both sides the 0 Vicryl stitch was then bent so that I could come out the port and then the surgeon remove the port we then inspected the abdomen and there was no signs of any injury or bleeding at this point the abdomen was clear we irrigated and suctioned we then took out the robot fourth arm and then put in the camera through that arm and then through our umbilicus camera we grabbed the end the Endo Catch bag they had the adenoma and then all the robotic arms were removed the dock the robot was undocked and the patient was taken out of Trendelenburg and the robot was moved out the way and then we went and proceeded with the extraction of the prostate adenoma made an incision at above the umbilicus and around the port I extended an incision about centimeter half each way and then use retractors to dissect down to the fascia open up the fascia in the midline will let the air seal on during this time to facilitate the di ssection and then once we opened into the peritoneal cavity the air seal was turned off I then manually retracted and then opened up the fascia enough above the umbilicus and then pulled out the adenoma through the extraction site. Then the other ports were removed and the AirSeal port was removed and then we closed the fascia with 0 Vicryl in a running fashion making sure to get good approximation of both edges to close the fascia completely and once the fascia was closed then we closed the fascia on the AirSeal port which was a 1012 mm AirSeal port and then at this point the catheter was irrigated and we started continuous irrigation the urine was a light pizano colored but running freely and then the assistant auto center manager and I finished closing the and subcuticular incisions using 4-0 Monocryl on the 3 sites the 3 trocar sites and also the AirSeal port site the abdomen was then cleaned dressings and bandages were placed the ports the catheter was then secured to the patient's leg using the secure cath patient is anesthetic is was reversed he was extubated and taken back to the PACU in stable condition all sponges and needles were accounted for blood loss was fairly minimal at 50 cc and patient was stable in the PACU I then went spoke to the family after the procedure and and told on the results of the procedure Surgical Findings: Prostate adenoma enucleated Complications Complications: No Admit VTE Documentation VTE Present on Admission: No VTE Mechan Device Prophylaxis: SCD's VTE Pharm Prophylaxis ordered?: No
--- NOTE | 2025-09-01 10:30 | PCM.POST.ANE ---
Anesthesia: Postop Eval I Current Vital Signs Temperature: 97.7 F Pulse Rate: 95 Blood Pressure: 90/73 Respiratory Rate: 20 Pulse Ox: 91 Oxygen Delivery Method: Room Air Assessment Airway patent: Yes Spontaneous unlabored respirations: Yes Mental status: Awake and Calm nausea: No Vomiting: No Anesthesia Complication: No Fluid Hydration Crystalloid volume administer (ml): 1,800 Total IV fluid infused: 1,800 Progress Note Anesthesia document: Postop Eval 1 completed: Yes
[2025-09-01] MEDS: 0.9% Normal Saline (1000mL) 1,000 ML 75 ML IV (13:46)
[2025-09-01] MEDS: Latanoprost 0.005% 1 Bottle 1 DRP OPHTHALMIC (21:56)
--- NOTE | 2025-09-01 22:12 | POSTOPAN2_ITS ---
Anesthesia Postop Eval I Sum Postop Eval Completion status Anesthesia document: Postop Eval 1 completed: Yes Anesthesia Postop Eval I Summary Anesthesia Postop Eval I Summary: Anesthesia Postop Eval I: Assessment Summary Airway patent Yes 09/01/25 10:31 MENTAL RETARDATION AIDE.[email or web address] Spontaneous unlabored Yes 09/01/25 10:31 MENTAL RETARDATION AIDE.JDEF respirations Mental status Awake,Calm 09/01/25 10:31 MENTAL RETARDATION AIDE.JDEF nausea No 09/01/25 10:31 MENTAL RETARDATION AIDE.JDEF Vomiting No 09/01/25 10:31 MENTAL RETARDATION AIDE.JDEF Anesthesia Postop Eval I: Fluid Summary Crystalloid volume administer 1,800 09/01/25 10:31 MENTAL RETARDATION AIDE.JDEF (ml) Colloids volume administered ( ml) Blood Product volume administered (ml) Total IV fluid infused 1,800 09/01/25 10:31 MENTAL RETARDATION AIDE.JDEF Anesthesia Postop Eval I: Summary Notes Anesthesia Complication No 09/01/25 10:31 MENTAL RETARDATION AIDE.JDEF Anesthesia Complication Comment: Post-operative progress note Anesthesia: Postop Eval II Evaluation Mental status: Awake and Calm Pain Level: 2 nausea: No Vomiting: No Complications Anesthesia Complication: No
--- NOTE | 2025-09-01 22:12 | PCM.POSTANE2 ---
Anesthesia Postop Eval I Sum Postop Eval Completion status Anesthesia document: Postop Eval 1 completed: Yes Anesthesia Postop Eval I Summary Anesthesia Postop Eval I Summary: Anesthesia Postop Eval I: Assessment Summary Airway patent Yes 09/01/25 10:31 AWNING [email or web address] Spontaneous unlabored Yes 09/01/25 10:31 AWNING [email or web address].JDEF respirations Mental status Awake,Calm 09/01/25 10:31 AWNING [email or web address].JDEF nausea No 09/01/25 10:31 AWNING HANGER.JDEF Vomiting No 09/01/25 10:31 AWNING [email or web address].JDEF Anesthesia Postop Eval I: Fluid Summary Crystalloid volume administer 1,800 09/01/25 10:31 AWNING [email or web address].JDEF (ml) Colloids volume administered ( ml) Blood Product volume administered (ml) Total IV fluid infused 1,800 09/01/25 10:31 AWNING [email or web address].JDEF Anesthesia Postop Eval I: Summary Notes Anesthesia Complication No 09/01/25 10:31 AWNING [email or web address].JDEF Anesthesia Complication Comment: Post-operative progress note Anesthesia: Postop Eval II Evaluation Mental status: Awake and Calm Pain Level: 2 nausea: No Vomiting: No Complications Anesthesia Complication: No
[2025-09-02 01:14] VITALS: BP 143/75; PULSE 63; RESP 18; TEMP 36.6; O2SAT 96
[2025-09-02] MEDS: 0.9% Normal Saline (1000mL) 1,000 ML 75 ML IV (02:55)
[2025-09-02 05:07] LABS: Hematocrit 29.3 % (40-54); Hemoglobin 9.8 g/dL (13.0-16.5); Immature Granulocytes Count 0.080 X10^3/uL (0.0-0.0); Mean Corp Hgb Conc 33.4 g/dL (32-36); Mean Corpuscular Volume 101.7 fL (80-94); Mean Platelet Vol. 10.5 fl (6.2-12.0); NRBC Flagged by Analyzer 0 % (0-5); POSITIVE DIFFERENTIAL YES; Platelet Count 190 K/mm3 (150-450); RBC Distribution Width CV 13.3 % (11.6-14.6); RBC Distribution Width SD 49.1 fl (35.1-43.9); Red Blood Count 2.88 M/mm3 (4.6-6.2); White Blood Count 14.1 K/mm3 (4.4-11.0)
[2025-09-02 05:09] LABS: Differential Indicated SCAN CRITERIA MET
[2025-09-02 05:28] VITALS: BP 140/64; PULSE 83; RESP 18; TEMP 36.3; O2SAT 95
[2025-09-02 05:46] LABS: Anion Gap 11 (5-15); BUN 34 mg/dL (4-19); BUN/Creat Ratio 10.4 RATIO (10-20); Calcium,Total 8.5 mg/dL (7.6-11.0); Carbon Dioxide 19.5 mmol/L (21.0-32.0); Chloride 102 mmol/L (98-108); Estimated Creatinine Clearance 14.58 ml/min (50-250); Glucose 111 mg/dL (70-99); Potassium 5.9 mmol/L (3.3-5.1)
[2025-09-02 05:53] LABS: Differential Comment SCANNED
--- NOTE | 2025-09-02 07:20 | PN.URO_ITS ---
Subjective Subjective Status post simple prostatectomy he can go home today with a Ortiz catheter on a regular diet and follow-up for catheter removal Objective Data Objective Data Vital Signs: Vital Signs Temp Pulse Resp BP Pulse Ox O2 Del Method O2 Flow Rate 97.4 F L 83 18 140/64 H 95 Room Air 2 09/02/25 05:28 09/02/25 05:28 09/02/25 05:28 09/02/25 05:28 09/02/25 05:28 09/02/25 05:28 09/01/25 12:30 Oxygen Flow Rate (L/min) 2 Oxygen Delivery Method Room Air Weight: 70.2 kg Body Mass Index (BMI) 25.7 Intake & Output: Intake and Output for Last 24 Hours 08/31/25 09/01/25 09/02/25 23:59 23:59 23:59 Intake Total 3200 / 3200 986.25 / 986.25 Output Total 2675 / 2675 400 / 400 Balance 525 / 525 586.25 / 586.25 Lab / Micro Data 09/02/25 04:19 09/02/25 04:19 Labs: Laboratory Results - last 24 hr 09/02/25 04:19: WBC 14.1 H, RBC 2.88 L, Hgb 9.8 L, Hct 29.3 L, MCV 101.7 H, MCH 34.0 H, MCHC 33.4, RDW Std Deviation 49.1 H, RDW Coeff of Jaky 13.3, Plt Count 190, MPV 10.5, Immature Gran % (Auto) 0.600, Neut % (Auto) 80.8 H, Lymph % (Auto) 5.1 L, [place] % (Auto) 13.3 H, Eos % (Auto) 0.1, Baso % (Auto) 0.1, A bsolute Neuts (auto) 11.4 H, Absolute Lymphs (auto) 0.72 L, Nucleated RBC % 0, Differential Comment SCANNED, Sodium 132 L, Potassium 5.9 H, Chloride 102, C arbon Dioxide 19.5 L, Anion Gap 11, BUN 34 H, Creatinine 3.28 H, Estim Creat Clear Calc 14.58 L, Est GFR (MDRD) Non-Af 18 L, BUN/Creatinine Ratio 10.4, G lucose 111 H, Calcium 8.5
[2025-09-02 09:00] VITALS: BP 132/59; PULSE 65; RESP 18; TEMP 36.2; O2SAT 98
--- NOTE | 2025-09-02 09:15 | CASEMGMT ---
RN CRESCENCIO NOTE: Discharge order is in. Pt to dc home w/ F/C. RN CM to room. Pt resting in bed. RNCarito, @ bedside. Pt aware he is discharging today & states and daughter will be taking him home. He states he does have some steps to get into the home and his and daughter will assist him up them. He uses a walker @ baseline. He states nursing got him and assisted walking him to [place] and back, stating he was a little dizzy @ first, but felt like he did well over-all. Carito states will get him and have him ambulate to ensure he is walking safely prior to dc. He was made aware Rx's have been sent to [facility] in [place] and states they can pick them up on the way home. Pt states is familiar w/managing F/C @ home, as he has had this in the past. PARAS Patino, will review w/pt prior to dc. Pt denies having any concerns w/going home or further questions. Yossi BOJORQUEZ RN CM
[2025-09-02] MEDS: Tolterodine Tartrate 4 MG CAP.SA PO (09:35)
[2025-09-02 09:56] VITALS: BP 132/59; PULSE 65; RESP 18; TEMP 36.2; O2SAT 96
--- NOTE | 2025-09-02 11:55 | PHA.DC.COU.R ---
Pharmacy [facility] has performed discharge medication counseling for this patient. The patient was counseled on the following discharge medications and changes in medications for homegoing review. - Ciprofloxacin 500 mg tablet, Docusate 100 mg capsule, Oxycodone 5 mg tablet The Reason for Use, instructions for use, and potential side effects were reviewed for all new medications. The patient's questions regarding all of their medications were answered. The patient was able to verbally demonstrate an understanding of their discharge medications but could be helped by further reinforcement regarding new medications. Medications at Discharge Home Medications acetaminophen 650 mg tablet,extended release (Tylenol Arthritis Pain) 650 mg PO Q8H PRN pain 02/25/23 folic acid 1 mg tablet 2 mg PO DAILY 02/25/23 latanoprost 0.005 % eye drops 1 drp ophthalmic (eye) QPM 02/25/23 methotrexate sodium 2.5 mg tablet 12.5 mg PO WE 02/25/23 atorvastatin 40 mg tablet 40 mg PO QHS #30 tabs 12/08/24 lutein 20 mg capsule 20 mg PO QDAY 06/09/25 prednisone 10 mg tablet 10 mg PO DAILY PRN RA 08/27/25 tramadol 50 mg tablet 50 mg PO TID PRN PRN pain 08/27/25 ciprofloxacin HCl 500 mg tablet 500 mg PO BID #14 tabs 09/01/25 docusate sodium 100 mg capsule (Colace) 100 mg PO BID #20 caps 09/01/25 gabapentin 100 mg capsule 100 mg PO BID 09/01/25 oxycodone 5 mg tablet 5 mg PO Q6H PRN pain 7 days #20 tabs 09/01/25
[2025-09-02 14:16] VITALS: BP 122/70; PULSE 77; RESP 18; TEMP 37.2; O2SAT 96
== END 2025-09-02 14:16 | disposition home or self-care (01) ==
LOC: SDC 05:57 → AC 05:58 → MS3 16:53
PROVIDERS: Referring Provider Urology; Visit Provider Urology
PROC: 0VT04ZZ Resection of Prostate, Percutaneous Endoscopic Approach (ICD-10-PCS; CPT 55867; principal; 2025-09-01 07:10)
DX: D29.1 Benign neoplasm of prostate (principal); D30.3 Benign neoplasm of bladder; R33.8 Other retention of urine; Z79.899 Other long term (current) drug therapy
CPT/HCPCS: 55867; S2900; 00840; 80048; 85025; 88309; 94668; J0744; J2405; J8610

== ENCOUNTER 2025-09-04 12:17 | Inpatient (IN) | payer MEDICARE, SELFPAY ==
[2025-09-04 12:18] VITALS: BP 152/63; PULSE 112; RESP 20; TEMP 36.8; O2SAT 94; BMI 20.7
--- NOTE | 2025-09-04 12:34 | EDS_ITS ---
HPI History of Present Illness Chief Complaint: Ortiz C/O Detail of Chief Complaint: Ortiz catheter problem Informant: patient and family Narrative Narrative: Patient presents to the emergency department with a problem with his Ortiz catheter. Patient states that he had surgery [address] Maravilla who then placed a catheter in his bladder. He has had hematuria since that time but the blood seems to be getting darker. He thinks the catheter then subsequently became blocked and has been leaking around it and he is having abdominal discomfort. Denies fevers or chills or sweats. Not anticoagulated. No significant medical history otherwise [facility] Medical History (Updated 09/04/25 @ 15:[address] Laura Wolfe, DO) Wears glasses Fall Ambulates with cane Walker as ambulation aid Rheumatoid arthritis UTI (urinary tract infection) Prostate disease Indwelling urethral catheter present High cholesterol Back pain Shingles Former smoker History of pain when walking Elevated serum creatinine Glaucoma Benign prostatic hyperplasia Home Medications ?Medication ?Instructions ?Recorded ?Last Taken ?Type acetaminophen 650 mg 650 mg PO Q8H PRN pain 02/25 Unknown History tablet,extended release (Tylenol Arthritis Pain) folic acid 1 mg tablet 2 mg PO DAILY 02/25/23 Unkno wn History latanoprost 0.005 % eye drops 1 drp ophthalmic (eye) Q PM 02/25/23 Unknown History methotrexate sodium 2.5 mg tablet 12.5 mg PO WE Unknown History atorvastatin 40 mg tablet 40 mg PO QHS #30 tabs Unknown Rx lutein 20 mg capsule 20 mg PO QDAY 06/09/25 Unkno wn History prednisone 10 mg tablet 10 mg PO DAILY PRN RA Unknown History tramadol 50 mg tablet 50 mg PO TID PRN PRN pain Unknown History ciprofloxacin HCl 500 mg tablet 500 mg PO BID #14 tabs 09/01/25 Unknown Rx docusate sodium 100 mg capsule 100 mg PO BID #20 caps 09/01/25 Unknown Rx (Colace) gabapentin 100 mg capsule 100 mg PO BID 09/01/25 Unkno wn History oxycodone 5 mg tablet 5 mg PO Q6H PRN pain 7 days #20 09/01/25 Unknown Rx tabs Allergy/AdvReac Type Severity Reaction Status Date / Time No Known Allergies Allergy Verified 09/04/25 12:21 Family History Father Myocardial infarction Mother CVA (cerebral vascular accident) Brother Cancer lung ca. Sister COPD (chronic obstructive pulmonary disease) Sister Dementia Other Sudden cardiac Surgical History Hx of colonoscopy History of prostate surgery H/O inguinal hernia repair (~2010) H/O cataract extraction (~2015) Social History Smoking Status: Former smoker ROS ROS ED Review of Systems ROS Unobtainable: other Constitutional Constitutional ED: Reports lethargy; Denies chills, fever(s), sweats or weight loss Eyes Eyes: Denies blurry vision, change in vision or diplopia ENT ENT ED: Denies rhinorrhea or sore throat Cardiovascular Cardiovascular: Denies chest pain, orthopnea or racing heartbeat Respiratory/Chest Respiratory/Chest: Denies cough, dyspnea, dyspnea on exertion, orthopnea or sputum Gastrointestinal Gastrointestinal: Reports abdominal pain; Denies diarrhea, nausea or vomiting Genitourinary Genitourinary ED: Reports hematuria and other Details: Clogged Ortiz catheter ; Denies dysuria or urinary frequency Musculoskeletal Musculoskeletal: Denies arthralgias, back pain, myalgias or neck pain Integumentary Denies abscess, Abrasions or rash Neurologic Neurologic: Denies headache(s) or weakness Psychiatric Psychiatric: Denies anxiety, depression or suicidal thoughts Endocrine Endocrinology: Denies polydipsia, polyphagia or polyuria Hematologic/Lymphatic Hematologic/Lymphatic: Denies easy bleeding, easy bruising or lymphadenopathy Allergic/Immunologic Allergic/Immunologic ED: Denies mouth swelling, tongue swelling or urticaria EXAM Physical Exam Const Vital Signs: 09/04/25 12:18 Temperature 98.3 F Temperature Source Oral Pulse Rate 112 H Respiratory Rate 20 H Blood Pressure 152/63 H Blood Pressure Mean 92 Pulse Ox 94 Oxygen Delivery Method Room Air Positive well nourished and well developed General Appearance ED: well developed and NAD HEENT Reports TM's clear and moist mucous membranes normocephalic and atraumatic; Negative for trauma or tenderness Tympanic Membrane ED: Yes TM's clear Eyes PERRL and EOMs intact bilaterally General Eye ED: Negative for pale conjunctiva or scleral icterus Neck no lymphadenopathy, supple and no JVD General: Negative for tenderness Chest Wall inspection of chest normal and palpation of chest normal Chest: Negative for tenderness Resp normal respiratory effort and clear to auscultation bilaterally Effort and Inspection: Negative for respiratory distress or pain with movement Auscultation: Negative for rhonchi, wheezes or diminished lung sounds Cardio regular rate, regular rhythm, S1 normal heart sound, S2 normal heart sound and no murmurs Peripheral Pulses: pulses 2+ throughout GI normal to inspection, nondistended, normoactive bowel sounds, soft to palpation, non-distended and no masses GI Narrative: Mild fullness and tenderness palpation over the suprapubic region with some guarding. There is no rebound, rigidity, or. No signs Narrative: Ortiz catheter in place and dark blood small amount within the Ortiz bag. Back/Spine no CVA tenderness and no thoracic nor lumbar tenderness Extremity normal to inspection General Extremety ED: Negative for edema General Extremity: Negative for edema Neuro oriented x3, CN's II-XII intact bilaterally, no sensory deficits noted and gait normal Sensorium / Orientation: awake, alert, oriented to person, oriented to place and oriented to time Motor Exam: strength 5/5 throughout and strength abnormal Psych mental status grossly normal Skin no rashes or lesions noted and no wounds MDM MDM MDM Narrative Medical decision making narrative: Patient presents to the emergency department with postop pain and concern for his Ortiz catheter not draining properly. He has hematuria. He is status post prostatectomy 3 days ago. IV line established. Initially with attempted to irrigate his Ortiz catheter and did get some clots out but was not draining very well. Nursing staff placed a three-way Ortiz catheter. Patient continued to complain of significant pain and was medicated with morphine and Zofran. CBC with differential white, 13.9 with hemoglobin 9.5 and platelet count of 206. Chemistries unremarkable. BUN 35 and creatinine 1.78. I did obtain a CT scan o f the abdomen pelvis which showed bilateral wall thickening of the bladder which may be due to decompressed state or cystitis. Patient also had scattered pneumoperitoneum of the abdomen and pelvis this could be secondary to recent procedure. Patient also had extensive subcutaneous emphysema of the abdomen proximal thigh and scrotum. He has some fecal stasis. I feel all these CT changes likely related to recent surgery. I did discuss case with patient's urologist Dr. Maravilla who will evaluate patient for admission. Patient's Ortiz catheter was draining and after placing the three-way catheter were obtained about 200 cc of pink-tinged urine. Lab Data Attestation: I reviewed the patient's lab results. Labs: Laboratory Results - last 24 hr 09/04/25 12:40 WBC 13.9 H RBC 2.84 L Hgb 9.5 L Hct 28.5 L MCV 100.4 H MCH 33.5 H MCHC 33.3 RDW Std Deviation 48.2 H RDW Coeff of Jaky 13.2 Plt Count 206 MPV 10.2 Immature Gran % (Auto) 0.500 Neut % (Auto) 93.8 H Lymph % (Auto) 3.7 L [place] % (Auto) 1.6 Eos % (Auto) 0.3 Baso % (Auto) 0.1 Absolute Neuts (auto) 13.1 H Absolute Lymphs (auto) 0.52 L Nucleated RBC % 0 Sodium 132 L Potassium 5.4 H Chloride 101 Carbon Dioxide 20.1 L Anion Gap 11 BUN 35 H Creatinine 1.78 H Estim Creat Clear Calc 24.77 L Est GFR (MDRD) Non-Af 37 L BUN/Creatinine Ratio 19.6 Glucose 118 H Calcium 9.4 Radiography Diagnostic Testing: Clinical Impression(s) from Imaging Studies Abdomen/Pelvis CT 09/04/25 13:22 IMPRESSION: 1. Emphysematous lung changes. Right pleural effusion with partial consolidation could be atelectasis or pneumonia. Partially visualized soft tissue emphysema of the right chest wall. 2. Bladder wall thickening which may be due to the decompressed state of the bladder or due to cystitis. 3. Scattered pneumoperitoneum of the abdomen and pelvis. This could be secondary to recent procedure. Clinical correlation is recommended. 4. Fecal retention in the colon consistent with constipation. 5. Extensive subcutaneous emphysema of the abdome, proximal thigh and scrotum n. 6. Degenerative changes of the spine as above. Reading Location: [id number] Discharge Plan Dx/Rx/DC Orders Clinical Impression: Post-operative pain, Hematuria Disposition Disposition: Acute Care Hospital [facility]
[2025-09-04 12:54] LABS: Hematocrit 28.5 % (40-54); Hemoglobin 9.5 g/dL (13.0-16.5); Immature Granulocytes Count 0.070 X10^3/uL (0.0-0.0); Mean Corp Hgb Conc 33.3 g/dL (32-36); Mean Corpuscular Volume 100.4 fL (80-94); Mean Platelet Vol. 10.2 fl (6.2-12.0); NRBC Flagged by Analyzer 0 % (0-5); POSITIVE DIFFERENTIAL YES; Platelet Count 206 K/mm3 (150-450); RBC Distribution Width CV 13.2 % (11.6-14.6); RBC Distribution Width SD 48.2 fl (35.1-43.9); Red Blood Count 2.84 M/mm3 (4.6-6.2); White Blood Count 13.9 K/mm3 (4.4-11.0)
--- OUTSIDE RECORDS SUMMARY | 2025-09-04 13:03 | XMS RPT_ITS | CCD ---
Author Organization [facility] Care Team Providers Care Form Designer Name Role Phone BRENNAN BARROS Attending Unavailable BRENNAN BARROS Primary Care Unavailable BRENNAN BARROS Admitting Unavailable Dr. Blake Gonzalez Attending Provider [phone] Cody Delaney Primary Care Provider Unavailable Primary Care Provider Unavailabl e Reanna Maldonado Attending Provider [phone] Reanna Maldonado Referring Provider [phone] Care Physician, No Primary Primary Care [...] Unavailable Dr. Blake Gonzalez MD Attending Physician [phone] Care Physician, No Primary Referring Provider Un [...] on above: Take 1 capsule by mo [facility] three times a day as needed for cough. folic acid 1 mg oral tablet (5 sources) Start: 4 take 2 tablets by mouth once folic acid 1 mg tablet Take 2 tablets by mouth every afternoon. 0 11/12/2023 Active Start: 02-25-2023 [facility] Folic Acid 1 mg tablet Active 1 mg PO TWICE A DAY February 25, 2023 12:00am Complies with drug therapy Comment on above: Take 2 tablets by mo [facility] every afternoon. latanoprost 0.05 mg/ml ophthalmic solution [...] 07-01-2025 Chronic Other aftercare (1 source) Other [place] (current) drug therapy; Translations: [Other [facility] (current) drug therapy] Onset: 07-01-2025 Episodic Other [...] Comment on above: Performed By: #### 2 68939 ####[facility],[address] [place] [address] Anion gap [Moles/Vol] 9 mmol/L Low 10 - 20 [facility] Comment on above: Performed By: #### 2 06905 ####[facility],[address] [place] [address] BMP with eGFR Normal [facility] Comment on above: Result Comment: BASI C METABOLIC PANEL Performed By: #### 2 47488 ####[facility],[address] [place] [address] Calcium [Mass/Vol] 8.2 mg/dL Low 8.5 - 10.1 [facility] Comment on above: Performed By: #### 2 22052 ####[facility],[address] [place], [place] [id number] Chloride [Moles/Vol] 99 mmol/L Normal 98 - 107 [facility] Comment on above: Performed By: #### 2 75745 ####[facility],[address] [place], [place] [id number] CO2 [Moles/Vol] 26.1 mmol/L Normal 21.0 - 32.0 [facility] Comment on above: Performed By: #### 2 73783 ####[facility],[address] [place] [address] Creatinine [Mass/Vol] 0.96 mg/dL Normal 0.70 - 1.30 [facility] Comment on above: Performed By: #### 2 78505 ####[facility],[address] [place] [address] GFR/1.73 sq M.predicted among non-blacks MDRD (S/P/Bld) [Vol rate/Area] mL/min/{1.73_m2} Normal 60 - 999 [facility] Comment on above: Performed By: #### 2 31284 ####[facility],[address] [place] [address] Result Comment: ACCO RDING TO THE NATIONAL KIDNEY DISEASE EDUCATION PROGRAM(NKDE), A NORMAL eGFR IS A VALUE GREATER THAN OR EQUAL TO 60 ML/MIN/1.73 SQ METERS. CHRONIC KIDNEY DISEASE: <60mL/MIN/1.73 SQ METERS KIDNEY FAILURE: <15mL/MIN/1.73 SQ METERS THIS TEST SHOULD ONLY BE USED FOR PATIENTS 18 YEARS OF AGE AND OLDER. Glucose [Mass/Vol] 83 mg/dL Normal 74 - 106 [facility] Comment on above: Performed By: #### 2 94445 ####[facility],[address] [place], [place] [id number] Potassium [Moles/Vol] 4.2 mmol/L Normal 3.5 - 5.1 [facility] Comment on above: Performed By: #### 2 05296 ####[facility],[address] [place] [address] 31780 Sodium [Moles/Vol] 130 mmol/L Low 136 - 145 [facility] Comment on above: Performed By: #### 2 45779 ####[facility],[address] [place] [address] 58751 Urea nitrogen [Mass/Vol] 20 mg/dL High 7 - 18 [facility] Comment on above: Performed By: #### 2 78457 ####[facility],[address] [place] [address] 67486 B12 FOLATE PANELon Cobalamin (Vitamin B12) [Mass/Vol] 1094 pg/mL High 193 - 986 [facility] Comment on above: Performed By: #### 2 28053 #### [facility],[address] [place] [address] 68240 FOLATES 37.7 ng/ml Normal 8.6 - 58.9 [facility] Comment on above: Performed By: #### 2 87841 #### [facility],[address] [place] [address] 13795 CBC + DIFFon 07-26-2025 Baso # 0.02 x10EE3/UL Normal 0.00 - 0.10 [facility] Comment on above: Performed By: #### 2 26699 ####[facility],[address] [place] [address] 60560 Basophils/100 WBC (Bld) 0.3 % Normal 0.0 - 2.0 [facility] Comment on above: Performed By: #### 2 80874 ####[facility],[address] [place] [address] 44995 CBC + DIFF Normal [facility] Comment on above: Result Comment: CBC- COMPLETE BLOOD COUNT Performed By: #### 2 81122 ####[facility],[address] [place] [address] 70507 EO # 0.08 x10EE3/UL Normal 0.00 - 0.50 [facility] Comment on above: Performed By: #### 2 77293 ####[place] [address] Eosinophils/100 WBC (Bld) 1.1 % Normal 0.0 - 7.0 [facility] Comment on above: Performed By: #### 2 18175 ####[facility],[address] [place] [address] Erythrocyte distribution width (RBC) [Ratio] 12.9 % Normal 12.0 - 15.6 [facility] Comment on above: Performed By: #### 2 15705 ####[place] [address] Hematocrit (Bld) [Volume fraction] 39.3 % Low 40.0 - 52.0 [facility] Comment on above: Performed By: #### 2 13502 ####[place] [address] Hemoglobin (Bld) [Mass/Vol] 13.6 g/dL Normal 13.0 - 17.5 [facility] Comment on above: Performed By: #### 2 90660 ####[place] [address] Lymph # 0.84 x10EE3/UL Normal 0.80 - 2.80 [facility] Comment on above: Performed By: #### 2 18527 ####[place] [id number] Lymphocytes/100 WBC (Bld) 11.1 % Low 20.0 - 45.0 [facility] Comment on above: Performed By: #### 2 99388 ####[place] [id number] MANUAL DIFF N/A Normal [facility] Comment on above: Performed By: #### 2 92028 ####[place] [address] MCH (RBC) [Entitic mass] 34 pg High 27 - 33 [facility] Comment on above: Performed By: #### 2 51720 ####[facility],[address] [place] [address] MCHC 35 X10 3 Normal 32 - 36 [facility] Comment on above: Performed By: #### 2 19383 ####[facility],[address] [place] [address] MCV (RBC) [Entitic vol] 98 fL Normal 81 - 98 [facility] Comment on above: Performed By: #### 2 47352 ####[facility],[address] [place] [address] [place] # 1.40 x10EE3/UL High 0.20 - 1.00 [facility] Comment on above: Performed By: #### 2 40801 ####[facility],[address] [place] [address] MONOS % 18.5 % High 0.0 - 10.0 [facility] Comment on above: Performed By: #### 2 00843 ####[facility],[address] [place] [address] Morphology Yao (Bld) [Interp] N/A Normal [facility] Comment on above: Performed By: #### 2 92902 ####[facility],[address] [place] [address] Neut # 5.23 x10EE3/UL Normal 1.50 - 7.10 [facility] Comment on above: Performed By: #### 2 99594 ####[facility],[address] [place] [address] Neutrophils/100 WBC (Bld) 69.0 % Normal 46.0 - 76.0 [facility] Comment on above: Performed By: #### 2 86659 ####[facility],[address] [place] [address] PLATELET 127 x10EE3/UL Low 150 - 450 [facility] Comment on above: Performed By: #### 2 34856 ####[facility],[address] [place] [address] 66505 Platelet mean volume (Bld) [Entitic vol] 8.6 fL Normal 6.4 - 10.5 [facility] Comment on above: Result Comment: AUTO MATED DIFFERENTIAL Performed By: #### 2 72648 ####[facility],[address] [place] [address] RBC 4.03 x 10EE6/UL Low 4.50 - 6.00 [facility] Comment on above: Performed By: #### 2 01085 ####[facility],[address] [place], [place] [id number] WBC 7.6 x 10EE3/UL Normal 4.5 - 10.8 [facility] Comment on above: Performed By: #### 2 10092 ####[facility],[address] [place], [place] [phone] CMP with eGFRon 07-26-2025 AGE 84 years Normal [facility] Comment on above: Performed By: #### 2 94452 ####[facility],[address] [place], [place] [id number] Albumin [Mass/Vol] 2.5 g/dL Low 3.4 - 5.0 [facility] Comment on above: Performed By: #### 2 39767 ####[facility],[address] [place], [place] [id number] Albumin/Globulin [Mass ratio] 0.9 {ratio} Normal 0.9 - 1.6 [facility] Comment on above: Performed By: #### 2 75144 ####[facility],[address] [place] [address] 00163 ALK PHOS 67 U/L Normal 46 - 116 [facility] Comment on above: Performed By: #### 2 27845 ####[facility],[address] [place] [address] 40791 ALT [Catalytic activity/Vol] 17 U/L Normal 16 - 63 [facility] Comment on above: Performed By: #### 2 67798 ####[facility],[address] [place] [address] 76883 Anion gap [Moles/Vol] 11 mmol/L Normal 10 - 20 [facility] Comment on above: Performed By: #### 2 59692 ####[facility],[address] [place] [address] 93960 AST [Catalytic activity/Vol] 23 U/L Normal 15 - 37 [facility] Comment on above: Performed By: #### 2 04141 ####[facility],[address] [place] [address] 94426 B/C RATIO 18 ratio Normal 0 - 30 [facility] Comment on above: Performed By: #### 2 53214 ####[facility],[address] [place] [address] 75364 Bilirubin [Mass/Vol] 0.7 mg/dL Normal 0.2 - 1.0 [facility] Comment on above: Performed By: #### 2 13884 ####[facility],[address] [place] [address] 30850 Calcium [Mass/Vol] 8.0 mg/dL Low 8.5 - 10.1 [facility] Comment on above: Performed By: #### 2 27270 ####[facility],[address] [place] [address] 16099 Chloride [Moles/Vol] 98 mmol/L Normal 98 - 107 [facility] Comment on above: Performed By: #### 2 35315 ####[facility],[address] [place] [address] 94088 CMP with eGFR Normal [facility] Comment on above: Result Comment: COMP REHENSIVE METABOLIC PANEL Performed By: #### 2 17754 ####[facility],[address] [place], [place] [id number] CO2 [Moles/Vol] 23.5 mmol/L Normal 21.0 - 32.0 [facility] Comment on above: Performed By: #### 2 00976 ####[facility],[address] [place] [address] 45654 Creatinine [Mass/Vol] 0.95 mg/dL Normal 0.70 - 1.30 [facility] Comment on above: Performed By: #### 2 56423 ####[facility],[address] [place], [place] [address] GFR/1.73 sq M.predicted among non-blacks MDRD (S/P/Bld) [Vol rate/Area] mL/min/{1.73_m2} Normal 60 - 999 [facility] Comment on above: Performed By: #### 2 54392 ####[facility],[address] [place] [address] Result Comment: ACCO RDING TO THE NATIONAL KIDNEY DISEASE EDUCATION PROGRAM(NKDE), A NORMAL eGFR IS A VALUE GREATER THAN OR EQUAL TO 60 ML/MIN/1.73 SQ METERS. CHRONIC KIDNEY DISEASE: <60mL/MIN/1.73 SQ METERS KIDNEY FAILURE: <15mL/MIN/1.73 SQ METERS THIS TEST SHOULD ONLY BE USED FOR PATIENTS 18 YEARS OF AGE AND OLDER. Globulin (S) [Mass/Vol] 2.9 g/dL Normal 1.5 - 3.8 [facility] Comment on above: Performed By: #### 2 33082 ####[facility],[address] [place] [address] 20797 Glucose [Mass/Vol] 95 mg/dL Normal 74 - 106 [facility] Comment on above: Performed By: #### 2 61302 ####[facility],[address] [place] [address] 22722 Potassium [Moles/Vol] 3.9 mmol/L Normal 3.5 - 5.1 [facility] Comment on above: Performed By: #### 2 61314 ####[facility],[address] [place] [address] 27544 Protein [Mass/Vol] 5.4 g/dL Low 6.4 - 8.2 [facility] Comment on above: Performed By: #### 2 62414 ####[facility],[address] [place] [address] 99296 Sodium [Moles/Vol] 129 mmol/L Low 136 - 145 [facility] Comment on above: Performed By: #### 2 86871 ####[facility],[address] [place] [address] 36603 Urea nitrogen [Mass/Vol] 17 mg/dL Normal 7 - 18 [facility] Comment on above: Performed By: #### 2 39837 ####[facility],[address] [place] [address] 56766 TSH W/ REFLEX TO FREE T4on 1 09-25-2024 TSH Qn 3.54 m[IU]/L Normal 0.34 - 5.60 [facility] Comment on above: Performed By: #### 2 80450 #### [facility],[address] [place] [address] 95303 URINALYSISon 07-26-2025 Amorphous NONE Normal [facility] Comment on above: Performed By: #### 2 25229 ####[facility],[address] [place] [address] 68750 Bacteria TRACE Normal [facility] Comment on above: Performed By: #### 2 89054 ####[facility],[address] [place] [address] 12306 Bilirubin Ql (U) Negative Normal NORMAL: NEGATIVE [facility] Comment on above: Performed By: #### 2 47508 ####[facility],[address] [place] [address] 67858 Casts NONE Normal [facility] Comment on above: Performed By: #### 2 19146 ####[facility],[address] [place], [place] [phone] Clarity (U) clear Normal NORMAL: CLEAR [facility] Comment on above: Performed By: #### 2 51033 ####[facility],[address] [place], [place] [id number] Color (U) p.yel Normal NORMAL: YELLOW [facility] Comment on above: Performed By: #### 2 17297 ####[facility],[address] [place], [place] [phone] Crystals LM Nom (Urine sed) NONE Normal [facility] Comment on above: Performed By: #### 2 45419 ####[facility],[address] [place], [place] [id number] Epi Cells NONE Normal [facility] Comment on above: Performed By: #### 2 41334 ####[facility],[address] [place], [place] [id number] Glucose Ql (U) NORM Normal NORMAL: NORMAL [facility] Comment on above: Performed By: #### 2 80676 ####[facility],[address] [place] [address] 81196 Hemoglobin Ql (U) 150 Abnormal NORMAL: NEGATIVE [facility] Comment on above: Performed By: #### 2 41122 ####[facility],[address] [place] [address] 95428 Ketone Negative Normal NORMAL: NEGATIVE [facility] Comment on above: Performed By: #### 2 12658 ####[facility],[address] [place] [address] 88306 Leukocytes Negative Normal NORMAL: NEGATIVE [facility] Comment on above: Performed By: #### 2 64390 ####[facility],[address] [place] [address] 03764 Mucous NONE Normal [facility] Comment on above: Performed By: #### 2 27129 ####[facility],[address] [place] [address] 53556 Nitrite Ql (U) Negative Normal NORMAL: NEGATIVE [facility] Comment on above: Performed By: #### 2 56694 ####[facility],[address] [place] [address] pH (U) 6 [pH] Normal NORMAL: 5.0-8.0 [facility] Comment on above: Performed By: #### 2 93915 ####[facility],[address] [place] [address] Protein Ql (U) 15 Abnormal NORMAL: NEGATIVE [facility] Comment on above: Performed By: #### 2 01923 ####[facility],[address] [place] [address] Rbc 5-10 Normal 0-3/hpf [facility] Comment on above: Performed By: #### 2 81810 ####[facility],[address] [place] [address] Sp [place] 1.010 Normal NORMAL: 1.010-1.030 [facility] Comment on above: Performed By: #### 2 02798 ####[facility],[address] [place] [address] Specimen Type Catheter Normal [facility] Comment on above: Performed By: #### 2 11301 ####[facility],[address] [place] [address] Urinalysis dipstick W Reflex Microscopic panel (U) SEE BELOW Normal [facility] Comment on above: Result Comment: MICR OSCOPIC Performed By: #### 2 07611 ####[facility],[address] [place] [address] Urobilinog NORM Normal NORMAL: NORMAL [facility] Comment on above: Performed By: #### 2 72225 ####[facility],[address] [place] [address] Wbc NONE Normal 0-5/hpf [facility] Comment on above: Performed By: #### 2 71491 ####[facility],[address] [place] [address] 09947 Yeast NONE Normal [facility] Comment on above: Performed By: #### 2 85059 ####[facility],[address] [place] [address] 63328 VITAMIN B-12on 07-26-2025 Cobalamin (Vitamin B12) [Mass/Vol] 1094 pg/mL High 193 - 986 [facility] Comment on above: Performed By: #### 2 22976 #### [facility],[address] [place] [address] 94181 VITAMIN D, 25 HYDROXYon 07-17 VitD 35.80 ng/mL Normal 30.00 - 100 [facility] Comment on above: Result Comment: 25-O [...] D2 Not Established Performed By: #### 2 49247 ####[facility],[address] [place] [address] 64630 CBC + DIFFon 07-25-2025 Baso # 0.03 x10EE3/UL Normal 0.00 - 0.10 [facility] Comment on above: Performed By: #### 2 38874 ####[facility],[address] [place] [address] 96374 Basophils/100 WBC (Bld) 0.3 % Normal 0.0 - 2.0 [facility] Comment on above: Performed By: #### 2 21274 ####[facility],[address] [place] [address] 87157 CBC + DIFF Normal [facility] Comment on above: Result Comment: CBC- COMPLETE BLOOD COUNT Performed By: #### 2 92514 ####[facility] [place] [address] 77595 EO # 0.07 x10EE3/UL Normal 0.00 - 0.50 [facility] Comment on above: Performed By: #### 2 20630 ####[facility],[address] [place] [address] 83180 Eosinophils/100 WBC (Bld) 0.8 % Normal 0.0 - 7.0 [facility] Comment on above: Performed By: #### 2 47710 ####[facility],[address] [place] [address] Erythrocyte distribution width (RBC) [Ratio] 12.9 % Normal 12.0 - 15.6 [facility] Comment on above: Performed By: #### 2 61319 ####[facility],[address] [place] [address] Hematocrit (Bld) [Volume fraction] 41.0 % Normal 40.0 - 52.0 [facility] Comment on above: Performed By: #### 2 87795 ####[facility],[address] [place] [address] Hemoglobin (Bld) [Mass/Vol] 14.4 g/dL Normal 13.0 - 17.5 [facility] Comment on above: Performed By: #### 2 24390 ####[facility],[address] [place] [address] 23732 Lymph # 0.71 x10EE3/UL Low 0.80 - 2.80 [facility] Comment on above: Performed By: #### 2 52509 ####[facility],[address] [place] [address] 13368 Lymphocytes/100 WBC (Bld) 7.7 % Low 20.0 - 45.0 [facility] Comment on above: Performed By: #### 2 57431 ####[facility],[address] [place], [place] [id number] MANUAL DIFF N/A Normal [facility] Comment on above: Performed By: #### 2 41949 ####[facility],[address] [place] [address] 72895 MCH (RBC) [Entitic mass] 34 pg High 27 - 33 [facility] Comment on above: Performed By: #### 2 00979 ####[facility],[address] [place] [address] 45569 MCHC 35 X10 3 Normal 32 - 36 [facility] Comment on above: Performed By: #### 2 49691 ####[facility],[address] [place] [address] 13168 MCV (RBC) [Entitic vol] 98 fL Normal 81 - 98 [facility] Comment on above: Performed By: #### 2 26024 ####[facility],[address] [place] [address] 89453 [place] # 1.47 x10EE3/UL High 0.20 - 1.00 [facility] Comment on above: Performed By: #### 2 66014 ####[facility],[address] [place] [address] 23453 MONOS % 15.9 % High 0.0 - 10.0 [facility] Comment on above: Performed By: #### 2 78969 ####[facility],[address] [place] [address] 06532 Morphology Yao (Bld) [Interp] N/A Normal [facility] Comment on above: Performed By: #### 2 34576 ####[facility],[address] [place] [address] 20725 Neut # 6.96 x10EE3/UL Normal 1.50 - 7.10 [facility] Comment on above: Performed By: #### 2 34029 ####[facility],[address] [place] [address] 38010 Neutrophils/100 WBC (Bld) 75.3 % Normal 46.0 - 76.0 [facility] Comment on above: Performed By: #### 2 27206 ####[facility],[address] [place] [address] 34855 PLATELET 118 x10EE3/UL Low 150 - 450 [facility] Comment on above: Performed By: #### 2 18118 ####[facility],[address] [place] [address] 74929 Platelet mean volume (Bld) [Entitic vol] 8.7 fL Normal 6.4 - 10.5 [facility] Comment on above: Result Comment: AUTO MATED DIFFERENTIAL Performed By: #### 2 47036 ####[facility],[address] [place] [address] 69445 RBC 4.19 x 10EE6/UL Low 4.50 - 6.00 [facility] Comment on above: Performed By: #### 2 51087 ####[facility],[address] [place] [address] 60692 WBC 9.2 x 10EE3/UL Normal 4.5 - 10.8 [facility] Comment on above: Performed By: #### 2 82620 ####[facility],[address] [place] [address] 01293 CMP with eGFRon 07-25-2025 AGE 84 years Normal [facility] Comment on above: Performed By: #### 2 48753 #### [facility],[address] [place] [address] 34276 Albumin [Mass/Vol] 2.9 g/dL Low 3.4 - 5.0 [facility] Comment on above: Performed By: #### 2 01681 #### [facility],[address] [place] [address] 36296 Albumin/Globulin [Mass ratio] 0.9 {ratio} Normal 0.9 - 1.6 [facility] Comment on above: Performed By: #### 2 94436 #### [facility],[address] [place] [address] 32784 ALK PHOS 86 U/L Normal 46 - 116 [facility] Comment on above: Performed By: #### 2 36889 #### [facility],[address] [place] [address] 61189 ALT [Catalytic activity/Vol] 18 U/L Normal 16 - 63 [facility] Comment on above: Performed By: #### 2 05070 #### [facility],[address] [place] [address] Anion gap [Moles/Vol] 12 mmol/L Normal 10 - 20 [facility] Comment on above: Performed By: #### 2 86519 #### [facility],[address] [place] [address] AST [Catalytic activity/Vol] 23 U/L Normal 15 - 37 [facility] Comment on above: Performed By: #### 2 35341 #### [facility],[address] [place] [address] B/C RATIO 25 ratio Normal 0 - 30 [facility] Comment on above: Performed By: #### 2 55577 #### [facility],[address] [place] [address] 74160 Bilirubin [Mass/Vol] 0.8 mg/dL Normal 0.2 - 1.0 [facility] Comment on above: Performed By: #### 2 31881 #### [facility],[address] [place] [address] 21949 Calcium [Mass/Vol] 8.8 mg/dL Normal 8.5 - 10.1 [facility] Comment on above: Performed By: #### 2 97769 #### [facility],[address] [place] [address] 33627 Chloride [Moles/Vol] 96 mmol/L Low 98 - 107 [facility] Comment on above: Performed By: #### 2 96967 #### [facility],[address] [place] [address] 93461 CMP with eGFR Normal [facility] Comment on above: Result Comment: COMP REHENSIVE METABOLIC PANEL Performed By: #### 2 07625 #### [facility],[address] [place] [address] 86971 CO2 [Moles/Vol] 25.6 mmol/L Normal 21.0 - 32.0 [facility] Comment on above: Performed By: #### 2 09202 #### [place] [id number] Creatinine [Mass/Vol] 1.16 mg/dL Normal 0.70 - 1.30 [facility] Comment on above: Performed By: #### 2 51081 #### [facility],[address] [place] [address] 33186 eGFR 60 ML/MINUTE Normal 60 - 999 [facility] Comment on above: Performed By: #### 2 06429 #### [place] [id number] GFR/1.73 sq M.predicted among non-blacks MDRD (S/P/Bld) [...] AGE AND OLDER. Performed By: #### 2 81490 #### [facility],[address] [place] [address] 15925 Globulin (S) [Mass/Vol] 3.3 g/dL Normal 1.5 - 3.8 [facility] Comment on above: Performed By: #### 2 25161 #### [address] [address] Glucose [Mass/Vol] 106 mg/dL Normal 74 - 106 [facility] Comment on above: Performed By: #### 2 83286 #### [facility],[address] [place] [address] Potassium [Moles/Vol] 4.0 mmol/L Normal 3.5 - 5.1 [facility] Comment on above: Performed By: #### 2 25465 #### [facility],[address] [place] [address] Protein [Mass/Vol] 6.2 g/dL Low 6.4 - 8.2 [facility] Comment on above: Performed By: #### 2 71816 #### [facility],[address] [place] [address] Sodium [Moles/Vol] 130 mmol/L Low 136 - 145 [facility] Comment on above: Performed By: #### 2 85090 #### [facility],[address] [place] [address] Urea nitrogen [Mass/Vol] 29 mg/dL High 7 - 18 [facility] Comment on above: Performed By: #### 2 31458 #### [facility],[address] [place] [address] CORONAVIRUS (SARS) ANTIGEN T ESTon 07-25-2025 EXTERNAL QC DONE? YES Normal [facility] Comment on above: Performed By: #### 2 05460 #### [facility],[address] [place] [address] INTERNAL CONTROL PASS Normal [facility] Comment on above: Performed By: #### 2 68138 #### [facility],[address] [place] [address] SARS ANTIGEN Negative Normal NORMAL: NEGATIVE [facility] Comment on above: Performed By: #### 2 98977 #### [facility],[address] [place] [address] SEND TO ? NO Normal [facility] Comment on above: Result Comment: SARS -CoV-2 THIS TEST IS BEING USED UNDER THE FDA EUA PROCEDURE. THIS ASSAY HAS BEEN VALIDATED AT [facility] FOR USE WITH NASAL AND NASOPHARYNGEAL SWAB [...] PUBLIC HEALTH AUTHORITIES. Performed By: #### 2 68283 #### [facility],[address] [place], [place] [id number] CT BRAIN W/O CONTRASTon 11-0 CT BRAIN W/O CONTRAST [address] ? [place], [place] [address] ? Patient: SABIHA WEBBER Phone#: : 1940 Age: 84 Gender: M Pt. Type: ER Account: [id number] Location: 052 Ordering: DR. MADHAVI HARRISONDAJENISE Exam Date: 07/25/2025/9:50 Family Phys: VIRGIE SHAYURSZULA Charge Code: [id number] Physician: [place] Order #: [id number] Dose#: 52.3 mGy PROCEDURE: CT BRAIN WITHOUT CONTRAST COMPARISON: [facility], CT, BRAIN W/O CON, 07/03/2022, 17:58. [...] CHEST (PE PROTOCOL)on CT CHEST (PE PROTOCOL) [address] ? [place] [address] ? Patient: SABIHA WEBBER Phone#: : 1940 Age: 84 Gender: M Pt. Type: ER Account: [id number] Location: 052 Ordering: DR. MADHAVI SYED Exam Date: 07/25/2025/11:59 Family Phys: VIRGIE GILBERTSTEFFEN Charge Code: [id number] Physician: [place] Order #: [id number] Dose#: 5.3 mGy PROCEDURE: CT CHEST WITH CONTRAST FOR PE COMPARISON: [facility], CT, CHEST W/O CON, 07/25/2025, 9:54. [...] 84 Gender: M Pt. Type: ER Account: [id number] Location: 2 Ordering: DR. MADHAVI SYED Exam Date: 07/25/2025/11:59 Family Phys: VIRGIE GAMBOA Charge Code: [id number] Physician: [place] Order #: [id number] Dose#: 5.3 mGy CONCLUSION: 1. There is [...] W/O CONTRASTon 11-0 CT CHEST W/O CONTRAST [address] ? [place] [address] ? Patient: SABIHA WEBBER Phone#: : 1940 Age: 84 Gender: M Pt. Type: ER Account: [id number] Location: [facility] Ordering: DR. MADHAVI SYED Exam Date: 07/25/2025/9:54 Family Phys: VIRGIE GILBERTSTEFFEN Charge Code: [id number] Physician: [place] Order #: [id number] Dose#: 4.1 mGy PROCEDURE: CT CHEST WITHOUT CONTRAST COMPARISON: [facility], CT, CHEST/ABDOMEN/PELVIS W CON, 07/03/2022, 18:13. [...] 84 Gender: M Pt. Type: ER Account: [id number] Location: [facility] Ordering: DR. MADHAVI SYED Exam Date: 07/25/2025/9:54 Family Phys: VIRGIE GAMBOA Charge Code: [id number] Physician: [place] Order #: [id number] Dose#: 4.1 mGy Dictated by: Luly Zambrano MD on 07/25/2025 at 10:35 Approved by: Luly Zambrano MD on 07/25/2025 at 10:44 Normal [facility] D-DIMER, QUANTITATIVEon 11-0 D-DIMER QUANT 1013 ng/ml High 0 - 230 [facility] Comment on above: Performed By: #### 2 57239 ####[facility],[address] [place], [place] [id number] D-DIMER, QUANTITATIVE Normal [facility] Comment on above: Result Comment: [place] T D-DIMER Performed By: #### 2 87551 ####[facility],[address] [place], [place] [id number] INFLUENZA VIRUS RAPID A/Bon 07-25-2025 INFLUENZA VIRUS [...] Comment on above: Performed By: #### 2 97139 ####[facility],[address] [place] [address] 80025 LACTATEon 07-25-2025 Lactate [Moles/Vol] 1.7 mmol/L Normal 0.4 - 2.0 [facility] Comment on above: Performed By: #### 2 05287 #### [facility],[address] [place] [address] 48389 NT-proBNPon 07-25-2025 Natriuretic peptide B (Bld) [Mass/Vol] 316 pg/mL Normal 0 - 450 [facility] Comment on above: Performed By: #### 2 39237 ####[facility],[address] [place] [address] 98297 TROPONINon 07-25-2025 HS TROPONIN 24.5 pg/mL Normal 0.0 - 76.2 [facility] Comment on above: Performed By: #### 2 65074 #### [facility],[address] [place] [address] 75755 URINALYSISon 07-25-2025 Amorphous NONE Normal [facility] Comment on above: Performed By: #### 2 24044 #### [facility],[address] [place] [address] 89554 Bacteria NONE Normal [facility] Comment on above: Performed By: #### 2 79307 #### [facility],[address] [place] [address] 12907 Bilirubin Ql (U) Negative Normal NORMAL: NEGATIVE [facility] Comment on above: Performed By: #### 2 05902 #### [facility],[address] [place] [address] 60433 Casts NONE Normal [facility] Comment on above: Performed By: #### 2 79241 #### [facility],[address] [place] [address] Clarity (U) clear Normal NORMAL: CLEAR [facility] Comment on above: Performed By: #### 2 83256 #### [facility],[address] [place], [place] [phone] Color (U) yellow Normal NORMAL: YELLOW [facility] Comment on above: Performed By: #### 2 49110 #### [facility],[address] [place], [place] [phone] Crystals LM Nom (Urine sed) NONE Normal [facility] Comment on above: Performed By: #### 2 16406 #### [facility],[address] [place] [address] Epi Cells NONE Normal [facility] Comment on above: Performed By: #### 2 66404 #### [facility],[address] [place], [place] [phone] Glucose Ql (U) NORM Normal NORMAL: NORMAL [facility] Comment on above: Performed By: #### 2 24541 #### [facility],[address] [place] [address] 58179 Hemoglobin Ql (U) 10 Abnormal NORMAL: NEGATIVE [facility] Comment on above: Performed By: #### 2 86310 #### [facility],[address] [place] [address] 69789 Ketone Negative Normal NORMAL: NEGATIVE [facility] Comment on above: Performed By: #### 2 16085 #### [facility],[address] [place] [address] 26199 Leukocytes Negative Normal NORMAL: NEGATIVE [facility] Comment on above: Performed By: #### 2 63412 #### [facility],[address] [place] [address] 90314 Mucous NONE Normal [facility] Comment on above: Performed By: #### 2 80114 #### [facility],[address] [place] [address] 00373 Nitrite Ql (U) Negative Normal NORMAL: NEGATIVE [facility] Comment on above: Performed By: #### 2 86243 #### [facility],[address] [place] [address] pH (U) 5 [pH] Normal NORMAL: 5.0-8.0 [facility] Comment on above: Performed By: #### 2 40551 #### [facility],[address] [place] [address] Protein Ql (U) 30 Abnormal NORMAL: NEGATIVE [facility] Comment on above: Performed By: #### 2 17795 #### [facility],[address] [place] [address] Rbc 0-5 Normal 0-3/hpf [facility] Comment on above: Performed By: #### 2 17229 #### [facility],[address] [place] [address] Sp [place] 1.015 Normal NORMAL: 1.010-1.030 [facility] Comment on above: Performed By: #### 2 49768 #### [facility],[address] [place] [address] Specimen Type R Normal [facility] Comment on above: Performed By: #### 2 33729 #### [facility],[address] [place] [address] Urinalysis dipstick W Reflex Microscopic panel (U) SEE BELOW Normal [facility] Comment on above: Result Comment: MICR OSCOPIC Performed By: #### 2 27308 #### [facility],[address] [place] [address] Urobilinog NORM Normal NORMAL: NORMAL [facility] Comment on above: Performed By: #### 2 70737 #### [facility],[address] [place] [address] Wbc NONE Normal 0-5/hpf [facility] Comment on above: Performed By: #### 2 56379 #### [facility],[address] [place] [address] 70674 Yeast NONE Normal [facility] Comment on above: Performed By: #### 2 34971 #### [facility],[address] [place], [place] [id number] CBC + DIFFon 07-01-2025 Baso # 0.02 x10EE3/UL Normal 0.00 - 0.10 [facility] Comment on above: Performed By: #### 2 76262 #### [facility],[address] [place] [address] 10175 Basophils/100 WBC (Bld) 0.3 % Normal 0.0 - 2.0 [facility] Comment on above: Performed By: #### 2 53741 #### [facility],[address] [place] [address] CBC + DIFF Normal [facility] Comment on above: Result Comment: CBC- COMPLETE BLOOD COUNT Performed By: #### 2 65054 #### [facility],[address] [place] [address] EO # 0.06 x10EE3/UL Normal 0.00 - 0.50 [facility] Comment on above: Performed By: #### 2 51137 #### [facility],[address] [place], [place] [id number] Eosinophils/100 WBC (Bld) 0.8 % Normal 0.0 - 7.0 [facility] Comment on above: Performed By: #### 2 97480 #### [facility],[address] [place] [address] Erythrocyte distribution width (RBC) [Ratio] 13.1 % Normal 12.0 - 15.6 [facility] Comment on above: Performed By: #### 2 74990 #### [facility],[address] [place] [address] Hematocrit (Bld) [Volume fraction] 43.0 % Normal 40.0 - 52.0 [facility] Comment on above: Performed By: #### 2 22584 #### [facility],[address] [place] [address] 97992 Hemoglobin (Bld) [Mass/Vol] 14.5 g/dL Normal 13.0 - 17.5 [facility] Comment on above: Performed By: #### 2 79937 #### [facility],[address] [place] [address] 95328 Lymph # 0.74 x10EE3/UL Low 0.80 - 2.80 [facility] Comment on above: Performed By: #### 2 23115 #### [facility],[address] [place] [address] 50274 Lymphocytes/100 WBC (Bld) 9.2 % Low 20.0 - 45.0 [facility] Comment on above: Performed By: #### 2 81805 #### [facility],[address] [place] [address] 12880 MANUAL DIFF N/A Normal [facility] Comment on above: Performed By: #### 2 16410 #### [facility],[address] [place] [address] 37896 MCH (RBC) [Entitic mass] 34 pg High 27 - 33 [facility] Comment on above: Performed By: #### 2 76112 #### [facility],[address] [place] [address] 53171 MCHC 34 X10 3 Normal 32 - 36 [facility] Comment on above: Performed By: #### 2 76717 #### [facility],[address] [place] [address] 42933 MCV (RBC) [Entitic vol] 100 fL High 81 - 98 [facility] Comment on above: Performed By: #### 2 10258 #### [facility],[address] [place] [address] 02458 [place] # 0.68 x10EE3/UL Normal 0.20 - 1.00 [facility] Comment on above: Performed By: #### 2 40584 #### [facility],[address] [place] [address] 78861 MONOS % 8.4 % Normal 0.0 - 10.0 [facility] Comment on above: Performed By: #### 2 93661 #### [facility],[address] [place] [address] 23082 Morphology Yao (Bld) [Interp] N/A Normal [facility] Comment on above: Performed By: #### 2 51008 #### [facility],[address] [place] [address] 86793 Neut # 6.57 x10EE3/UL Normal 1.50 - 7.10 [facility] Comment on above: Performed By: #### 2 09826 #### [facility],[address] [place] [address] 51557 Neutrophils/100 WBC (Bld) 81.4 % High 46.0 - 76.0 [facility] Comment on above: Performed By: #### 2 58871 #### [facility],[address] [place] [address] 73891 PLATELET 168 x10EE3/UL Normal 150 - 450 [facility] Comment on above: Performed By: #### 2 43133 #### [facility],[address] [place] [address] 60967 Platelet mean volume (Bld) [Entitic vol] 8.7 fL Normal 6.4 - 10.5 [facility] Comment on above: Result Comment: AUTO MATED DIFFERENTIAL Performed By: #### 2 25974 #### [facility],[address] [place] [address] 35603 RBC 4.29 x 10EE6/UL Low 4.50 - 6.00 [facility] Comment on above: Performed By: #### 2 99664 #### [facility],[address] [place] [address] 20285 WBC 8.1 x 10EE3/UL Normal 4.5 - 10.8 [facility] Comment on above: Performed By: #### 2 10984 #### [facility],[address] [place] [address] 62115 CMP with eGFRon 07-01-2025 AGE 84 years Normal [facility] Comment on above: Performed By: #### 2 54517 ####[facility],[address] [place] [address] 65873 Albumin [Mass/Vol] 3.3 g/dL Low 3.4 - 5.0 [facility] Comment on above: Performed By: #### 2 90484 ####[facility],[address] [place] [address] 21722 Albumin/Globulin [Mass ratio] 1.1 {ratio} Normal 0.9 - 1.6 [facility] Comment on above: Performed By: #### 2 98905 ####[facility],[address] [place] [address] 20229 ALK PHOS 119 U/L High 46 - 116 [facility] Comment on above: Performed By: #### 2 10080 ####[facility],[address] [place] [address] 03461 ALT [Catalytic activity/Vol] 26 U/L Normal 16 - 63 [facility] Comment on above: Performed By: #### 2 50259 ####[facility],[address] [place] [address] 24149 Anion gap [Moles/Vol] 9 mmol/L Low 10 - 20 [facility] Comment on above: Performed By: #### 2 61321 ####[facility],[address] [place] [address] 57994 AST [Catalytic activity/Vol] 20 U/L Normal 15 - 37 [facility] Comment on above: Performed By: #### 2 42795 ####[facility],[address] [place] [address] 72331 B/C RATIO 24 ratio Normal 0 - 30 [facility] Comment on above: Performed By: #### 2 14096 ####[facility],[address] [place] [address] 22198 Bilirubin [Mass/Vol] 0.8 mg/dL Normal 0.2 - 1.0 [facility] Comment on above: Performed By: #### 2 76956 ####[facility],[address] [place] [address] 03270 Calcium [Mass/Vol] 9.1 mg/dL Normal 8.5 - 10.1 [facility] Comment on above: Performed By: #### 2 96934 ####[facility],[address] [place] [address] 08069 Chloride [Moles/Vol] 106 mmol/L Normal 98 - 107 [facility] Comment on above: Performed By: #### 2 95725 ####[facility],[address] [place], [place] [phone] CMP with eGFR Normal [facility] Comment on above: Result Comment: COMP REHENSIVE METABOLIC PANEL Performed By: #### 2 76785 ####[facility],[address] [place] [address] 83283 CO2 [Moles/Vol] 29.2 mmol/L Normal 21.0 - 32.0 [facility] Comment on above: Performed By: #### 2 72472 ####[facility],[address] [place] [address] 97837 Creatinine [Mass/Vol] 0.87 mg/dL Normal 0.70 - 1.30 [facility] Comment on above: Performed By: #### 2 03197 ####[facility],[address] [place] [address] 45584 GFR/1.73 sq M.predicted among non-blacks MDRD (S/P/Bld) [Vol rate/Area] mL/min/{1.73_m2} Normal 60 - 999 [facility] Comment on above: Performed By: #### 2 32192 ####[facility],[address] [place] [address] Result Comment: ACCO RDING TO THE NATIONAL KIDNEY DISEASE EDUCATION PROGRAM(NKDE), A NORMAL eGFR IS A VALUE GREATER THAN OR EQUAL TO 60 ML/MIN/1.73 SQ METERS. CHRONIC KIDNEY DISEASE: <60mL/MIN/1.73 SQ METERS KIDNEY FAILURE: <15mL/MIN/1.73 SQ METERS THIS TEST SHOULD ONLY BE USED FOR PATIENTS 18 YEARS OF AGE AND OLDER. Globulin (S) [Mass/Vol] 3.1 g/dL Normal 1.5 - 3.8 [facility] Comment on above: Performed By: #### 2 28418 ####[place] [address] Glucose [Mass/Vol] 92 mg/dL Normal 74 - 106 [facility] Comment on above: Performed By: #### 2 61783 ####[facility],[address] [place] [address] Potassium [Moles/Vol] 4.6 mmol/L Normal 3.5 - 5.1 [facility] Comment on above: Performed By: #### 2 87430 ####[facility],[address] [place], [place] [id number] Protein [Mass/Vol] 6.4 g/dL Normal 6.4 - 8.2 [facility] Comment on above: Performed By: #### 2 35515 ####[facility],[address] [place] [address] 25281 Sodium [Moles/Vol] 140 mmol/L Normal 136 - 145 [facility] Comment on above: Performed By: #### 2 76008 ####[address] [address] Urea nitrogen [Mass/Vol] 21 mg/dL High 7 - 18 [facility] Comment on above: Performed By: #### 2 62048 ####[facility],[address] [place] [address] 49986 LIPID PROFILEon 07-01-2025 Cholesterol [Mass/Vol] 104 mg/dL Normal 0 - 240 [facility] Comment on above: Performed By: #### 2 67625 ####[facility],[address] [place] [address] 76879 Cholesterol in HDL [Mass/Vol] 60 mg/dL Normal 40 - 60 [facility] Comment on above: Performed By: #### 2 58729 ####[facility],[address] [place] [address] 30700 Cholesterol in LDL [Mass/Vol] 40 mg/dL Normal 0 - 129 [facility] Comment on above: Performed By: #### 2 60897 ####[facility],[address] [place] [address] 80793 Cholesterol.total/Beatrice sterol in HDL [Mass ratio] 1.7 {ratio} Normal 0.0 - 5.0 [facility] Comment on above: Performed By: #### 2 56224 ####[facility],[address] [place] [address] 38376 Lipid 1996 panel Normal [facility] Comment on above: Result Comment: LIPI D PROFILE Performed By: #### 2 87283 ####[facility],[address] [place] [address] 71896 Triglyceride [Mass/Vol] 22 mg/dL Normal 0 - 150 [facility] Comment on above: Performed By: #### 2 55421 ####[facility],[address] [place] [address] 37325 MR/BMS.Ancelmo 06-09-2025 MR/BMS.[facility] Surgery [address] [place] [address]. [address] [place] [address] [id number] OFFICE VISIT Date of Service: 06/09/25 MR#: [id number] Acct: [id number] Name: SABIHA WEBBER Rep #: [id number] : 1940 Provider: Dr. Blake Gonzalez MD Age/Sex: 84/M Location: [facility] Status: Signed Intake Vital Signs 06/09/25 16:10 [...] nose nor (more content not included)... Normal [facility] Carotid Duplex Ultrasoundon 04-26-2025 Carotid Duplex Ultrasound [facility] [place] [address] [place] [address] Carotid Duplex Ultrasound 04/26/25 1255 MR#: [id number] Acct: [id number] Name: SABIHA WEBBER Rep #: [id number] : 1940 84 From: Blake Gonzalez MD [...] the left vertebral artery. Procedure Carotid Duplex 02521. This is a Carotid Duplex examination using [...] Dictated: 04/26/25 1255 Date Transcribed: 04/26/25 1608 Legal Mediator: Signed Normal [facility] Duplex ultrasound of carotid artery reportOrdered By: Blake Gonzalez on 04-26-2025 Study report [facility] [address] [place] [address] Carotid Duplex Ultrasound 04/26/25 1255 MR#: [id number] Acct: [id number] Name: SABIHA WEBBER Rep #:[id number] : 1940 84 From: Blake Lynn Attending Dr: TATY Maciel Stat us: REG CLI Ordering Dr: Reanna Diaz Date: Location: [facility] Sex: M C Admitted: Reason For [...] the left vertebral artery. Procedure Carotid Duplex 66720. This is a Carotid Duplex examination using [...] Date Dictated: 04/26/25 125 Date Transcribed: 04/26/251607 Legal Mediator: Signed [facility] Work Phone: CBC + DIFFon 04-08-2025 Baso # 0.02 x10EE3/UL Normal 0.00 - 0.10 [facility] Comment on above: Performed By: #### 2 03372 #### [address] [address] Basophils/100 WBC (Bld) 0.3 % Normal 0.0 - 2.0 [facility] Comment on above: Performed By: #### 2 50708 #### [facility],[address] [place] [address] 88313 CBC + DIFF Normal [facility] [facility] Comment on above: Result Comment: CBC- COMPLETE BLOOD COUNT Performed By: #### 2 95172 #### [facility],[address] [place] [address] 98035 EO # 0.07 x10EE3/UL Normal 0.00 - 0.50 [facility] Comment on above: Performed By: #### 2 93990 #### [facility],[address] [place] [address] 36741 Eosinophils/100 WBC (Bld) 1.2 % Normal 0.0 - 7.0 [facility] Comment on above: Performed By: #### 2 62017 #### [facility],[address] [place] [address] Erythrocyte distribution width (RBC) [Ratio] 13.5 % Normal 12.0 - 15.6 [facility] Comment on above: Performed By: #### 2 69656 #### [facility],[address] [place] [address] Hematocrit (Bld) [Volume fraction] 41.4 % Normal 40.0 - 52.0 [facility] Comment on above: Performed By: #### 2 59935 #### [facility],[address] [place] [address] Hemoglobin (Bld) [Mass/Vol] 14.4 g/dL Normal 13.0 - 17.5 [facility] Comment on above: Performed By: #### 2 73055 #### [facility],[address] [place] [address] Lymph # 1.04 x10EE3/UL Normal 0.80 - 2.80 [facility] Comment on above: Performed By: #### 2 43443 #### [facility],[address] [place], [place] [phone] Lymphocytes/100 WBC (Bld) 16.9 % Low 20.0 - 45.0 [facility] Comment on above: Performed By: #### 2 37914 #### [facility],[address] [place], [place] [id number] MANUAL DIFF N/A Normal [facility] Comment on above: Performed By: #### 2 07642 #### [place] [phone] MCH (RBC) [Entitic mass] 35 pg High 27 - 33 [facility] Comment on above: Performed By: #### 2 06757 #### [place] [address] MCHC 35 X10 3 Normal 32 - 36 [facility] Comment on above: Performed By: #### 2 49816 #### [facility],[address] [place] [address] 43253 MCV (RBC) [Entitic vol] 100 fL High 81 - 98 [facility] Comment on above: Performed By: #### 2 93543 #### [facility],[address] [place] [address] 72764 [place] # 0.66 x10EE3/UL Normal 0.20 - 1.00 [facility] Comment on above: Performed By: #### 2 69303 #### [facility],[address] [place] [address] 59087 MONOS % 10.8 % High 0.0 - 10.0 [facility] Comment on above: Performed By: #### 2 72280 #### [facility],[address] [place], [place] [phone] Morphology Yao (Bld) [Interp] N/A Normal [facility] Comment on above: Performed By: #### 2 78332 #### [facility],[address] [place] [address] 45075 Neut # 4.36 x10EE3/UL Normal 1.50 - 7.10 [facility] Comment on above: Performed By: #### 2 69481 #### [facility],[address] [place] [address] 71353 Neutrophils/100 WBC (Bld) 70.8 % Normal 46.0 - 76.0 [facility] Comment on above: Performed By: #### 2 65539 #### [facility],[address] [place] [address] 87057 PLATELET 186 x10EE3/UL Normal 150 - 450 [facility] Comment on above: Performed By: #### 2 66776 #### [facility],[address] [place] [address] 37267 Platelet mean volume (Bld) [Entitic vol] 9.1 fL Normal 6.4 - 10.5 [facility] Comment on above: Result Comment: AUTO MATED DIFFERENTIAL Performed By: #### 2 94634 #### [facility],[address] [place] [address] 22406 RBC 4.14 x 10EE6/UL Low 4.50 - 6.00 [facility] Comment on above: Performed By: #### 2 45133 #### [facility],[address] [place] [address] 67924 WBC 6.2 x 10EE3/UL Normal 4.5 - 10.8 [facility] Comment on above: Performed By: #### 2 30446 #### [facility],[address] [place] [address] 92944 CMP with eGFRon 04-08-2025 AGE 84 years Normal [facility] Comment on above: Performed By: #### 2 14698 ####[facility],[address] [place] [address] 78326 Albumin [Mass/Vol] 3.5 g/dL Normal 3.4 - 5.0 [facility] Comment on above: Performed By: #### 2 63159 ####[facility],[address] [place] [address] 18306 Albumin/Globulin [Mass ratio] 1.0 {ratio} Normal 0.9 - 1.6 [facility] Comment on above: Performed By: #### 2 39807 ####[facility],[address] [place] [address] 46996 ALK PHOS 118 U/L High 46 - 116 [facility] Comment on above: Performed By: #### 2 60812 ####[facility],[address] [place] [address] 67785 ALT [Catalytic activity/Vol] 42 U/L Normal 16 - 63 [facility] Comment on above: Performed By: #### 2 65445 ####[facility],[address] [place] [address] 57410 Anion gap [Moles/Vol] 11 mmol/L Normal 10 - 20 [facility] Comment on above: Performed By: #### 2 11789 ####[facility],[address] [place] [address] 73669 AST [Catalytic activity/Vol] 25 U/L Normal 15 - 37 [facility] Comment on above: Performed By: #### 2 16175 ####[facility],[address] [place] [address] 30423 B/C RATIO 30 ratio Normal 0 - 30 [facility] Comment on above: Performed By: #### 2 48459 ####[facility],[address] [place] [address] 51767 Bilirubin [Mass/Vol] 0.7 mg/dL Normal 0.2 - 1.0 [facility] Comment on above: Performed By: #### 2 37897 ####[facility],[address] [place] [address] 05159 Calcium [Mass/Vol] 9.1 mg/dL Normal 8.5 - 10.1 [facility] Comment on above: Performed By: #### 2 18849 ####[facility],[address] [place] [address] 34239 Chloride [Moles/Vol] 108 mmol/L High 98 - 107 [facility] Comment on above: Performed By: #### 2 35096 ####[facility],[address] [place] [address] 96011 CMP with eGFR Normal [facility] Comment on above: Result Comment: COMP REHENSIVE METABOLIC PANEL Performed By: #### 2 80553 ####[facility],[address] [place] [address] 79000 CO2 [Moles/Vol] 27.3 mmol/L Normal 21.0 - 32.0 [facility] Comment on above: Performed By: #### 2 84991 ####[facility],[address] [place] [address] 79626 Creatinine [Mass/Vol] 1.23 mg/dL Normal 0.70 - 1.30 [facility] Comment on above: Performed By: #### 2 77763 ####[facility],[address] [place] [address] 51831 eGFR 56 ML/MINUTE Low 60 - 999 [facility] Comment on above: Performed By: #### 2 20852 ####[facility],[address] [place] [address] 80875 GFR/1.73 sq M.predicted among non-blacks MDRD (S/P/Bld) [...] AGE AND OLDER. Performed By: #### 2 31624 ####[facility],[address] [place] [address] 36617 Globulin (S) [Mass/Vol] 3.6 g/dL Normal 1.5 - 3.8 [facility] Comment on above: Performed By: #### 2 23390 ####[facility],[address] [place] [address] 93924 Glucose [Mass/Vol] 90 mg/dL Normal 74 - 106 [facility] Comment on above: Performed By: #### 2 85239 ####[facility],[address] [place] [address] 34953 Potassium [Moles/Vol] 4.6 mmol/L Normal 3.5 - 5.1 [facility] Comment on above: Performed By: #### 2 06716 ####[facility],[address] [place] [address] 68930 Protein [Mass/Vol] 7.1 g/dL Normal 6.4 - 8.2 [facility] Comment on above: Performed By: #### 2 20677 ####[facility],[address] [place] [address] 75952 Sodium [Moles/Vol] 142 mmol/L Normal 136 - 145 [facility] Comment on above: Performed By: #### 2 76053 ####[facility],[address] [place] [address] 28274 Urea nitrogen [Mass/Vol] 37 mg/dL High 7 - 18 [facility] Comment on above: Performed By: #### 2 77751 ####[facility],[address] [place] [address] 57414 CBC + DIFFon 01-13-2025 Baso # 0.01 x10EE3/UL Normal 0.00 - 0.10 [facility] Comment on above: Performed By: #### 2 40994 ####[facility],[address] [place] [address] 06506 Basophils/100 WBC (Bld) 0.1 % Normal 0.0 - 2.0 [facility] Comment on above: Performed By: #### 2 00906 ####[facility],[address] [place] [address] 49180 CBC + DIFF Normal [facility] Comment on above: Result Comment: CBC- COMPLETE BLOOD COUNT Performed By: #### 2 69722 ####[facility],[address] [place] [address] 96072 EO # 0.03 x10EE3/UL Normal 0.00 - 0.50 [facility] Comment on above: Performed By: #### 2 17018 ####[facility],[address] [place] [address] 64715 Eosinophils/100 WBC (Bld) 0.5 % Normal 0.0 - 7.0 [facility] Comment on above: Performed By: #### 2 49590 ####[facility],[address] [place] [address] Erythrocyte distribution width (RBC) [Ratio] 13.1 % Normal 12.0 - 15.6 [facility] Comment on above: Performed By: #### 2 79252 ####[facility],[address] [place] [address] Hematocrit (Bld) [Volume fraction] 43.0 % Normal 40.0 - 52.0 [facility] Comment on above: Performed By: #### 2 35915 ####[facility],[address] [place] [address] Hemoglobin (Bld) [Mass/Vol] 14.5 g/dL Normal 13.0 - 17.5 [facility] Comment on above: Performed By: #### 2 71786 ####[place] [address] Lymph # 0.87 x10EE3/UL Normal 0.80 - 2.80 [facility] Comment on above: Performed By: #### 2 80692 ####[place] [address] Lymphocytes/100 WBC (Bld) 15.4 % Low 20.0 - 45.0 [facility] Comment on above: Performed By: #### 2 78568 ####[place] [phone] MANUAL DIFF N/A Normal [facility] Comment on above: Performed By: #### 2 63403 ####[place] [phone] MCH (RBC) [Entitic mass] 35 pg High 27 - 33 [facility] Comment on above: Performed By: #### 2 95269 ####[place] [address] MCHC 34 X10 3 Normal 32 - 36 [facility] Comment on above: Performed By: #### 2 91029 ####[facility],[address] [place] [address] 14069 MCV (RBC) [Entitic vol] 103 fL High 81 - 98 [facility] Comment on above: Performed By: #### 2 43692 ####[facility],[address] [place] [address] 45712 [place] # 0.36 x10EE3/UL Normal 0.20 - 1.00 [facility] Comment on above: Performed By: #### 2 35086 ####[facility],[address] [place] [address] 09053 MONOS % 6.3 % Normal 0.0 - 10.0 [facility] Comment on above: Performed By: #### 2 13152 ####[facility],[address] [place], [place] [address] Morphology Yao (Bld) [Interp] N/A Normal [facility] Comment on above: Performed By: #### 2 19285 ####[facility],[address] [place], [place] [address] Neut # 4.41 x10EE3/UL Normal 1.50 - 7.10 [facility] Comment on above: Performed By: #### 2 00276 ####[facility],[address] [place] [address] 37081 Neutrophils/100 WBC (Bld) 77.7 % High 46.0 - 76.0 [facility] Comment on above: Performed By: #### 2 62938 ####[facility],[address] [place] [address] 24678 PLATELET 214 x10EE3/UL Normal 150 - 450 [facility] Comment on above: Performed By: #### 2 56737 ####[facility],[address] [place] [address] 04714 Platelet mean volume (Bld) [Entitic vol] 9.1 fL Normal 6.4 - 10.5 [facility] Comment on above: Result Comment: AUTO MATED DIFFERENTIAL Performed By: #### 2 73040 ####[facility],[address] [place] [address] 28089 RBC 4.19 x 10EE6/UL Low 4.50 - 6.00 [facility] Comment on above: Performed By: #### 2 69189 ####[facility],[address] [place] [address] 71488 WBC 5.7 x 10EE3/UL Normal 4.5 - 10.8 [facility] Comment on above: Performed By: #### 2 67496 ####[facility],[address] [place] [address] 89188 CMP with eGFRon 01-13-2025 AGE 84 years Normal [facility] Comment on above: Performed By: #### 2 70157 ####[facility],[address] [place] [address] 54676 Albumin [Mass/Vol] 3.6 g/dL Normal 3.4 - 5.0 [facility] Comment on above: Performed By: #### 2 85060 ####[facility],[address] [place] [address] 71957 Albumin/Globulin [Mass ratio] 1.0 {ratio} Normal 0.9 - 1.6 [facility] Comment on above: Performed By: #### 2 03580 ####[facility],[address] [place] [address] 27625 ALK PHOS 112 U/L Normal 46 - 116 [facility] Comment on above: Performed By: #### 2 86489 ####[facility],[address] [place] [address] 70906 ALT [Catalytic activity/Vol] 30 U/L Normal 16 - 63 [facility] Comment on above: Performed By: #### 2 55867 ####[facility],[address] [place] [address] 03693 Anion gap [Moles/Vol] 13 mmol/L Normal 10 - 20 [facility] Comment on above: Performed By: #### 2 49968 ####[facility],[address] [place] [address] 40882 AST [Catalytic activity/Vol] 22 U/L Normal 15 - 37 [facility] Comment on above: Performed By: #### 2 36291 ####[facility],[address] [place] [address] 12143 B/C RATIO 26 ratio Normal 0 - 30 [facility] Comment on above: Performed By: #### 2 11922 ####[facility],[address] [place] [address] 98169 Bilirubin [Mass/Vol] 0.7 mg/dL Normal 0.2 - 1.0 [facility] Comment on above: Performed By: #### 2 08931 ####[facility],[address] [place], [place] [address] Calcium [Mass/Vol] 9.6 mg/dL Normal 8.5 - 10.1 [facility] Comment on above: Performed By: #### 2 16496 ####[facility],[address] [place] [address] 57508 Chloride [Moles/Vol] 107 mmol/L Normal 98 - 107 [facility] Comment on above: Performed By: #### 2 53630 ####[facility],[address] [place] [address] 15022 CMP with eGFR Normal [facility] Comment on above: Result Comment: COMP REHENSIVE METABOLIC PANEL Performed By: #### 2 63699 ####[facility],[address] [place] [address] 71404 CO2 [Moles/Vol] 27.8 mmol/L Normal 21.0 - 32.0 [facility] Comment on above: Performed By: #### 2 36292 ####[facility],[address] [place] [address] 30416 Creatinine [Mass/Vol] 1.09 mg/dL Normal 0.70 - 1.30 [facility] Comment on above: Performed By: #### 2 18010 ####[facility],[address] [place] [address] 77285 GFR/1.73 sq M.predicted among non-blacks MDRD (S/P/Bld) [Vol rate/Area] mL/min/{1.73_m2} Normal 60 - 999 [facility] Comment on above: Performed By: #### 2 63212 ####[facility],[address] [place] [address] Result Comment: ACCO RDING TO THE NATIONAL KIDNEY DISEASE EDUCATION PROGRAM(NKDE), A NORMAL eGFR IS A VALUE GREATER THAN OR EQUAL TO 60 ML/MIN/1.73 SQ METERS. CHRONIC KIDNEY DISEASE: <60mL/MIN/1.73 SQ METERS KIDNEY FAILURE: <15mL/MIN/1.73 SQ METERS THIS TEST SHOULD ONLY BE USED FOR PATIENTS 18 YEARS OF AGE AND OLDER. Globulin (S) [Mass/Vol] 3.5 g/dL Normal 1.5 - 3.8 [facility] Comment on above: Performed By: #### 2 09983 ####[facility],[address] [place] [address] 78039 Glucose [Mass/Vol] 151 mg/dL High 74 - 106 [facility] Comment on above: Performed By: #### 2 48134 ####[facility],[address] [place] [address] 13465 Potassium [Moles/Vol] 4.3 mmol/L Normal 3.5 - 5.1 [facility] Comment on above: Performed By: #### 2 17679 ####[facility],[address] [place] [address] 31619 Protein [Mass/Vol] 7.1 g/dL Normal 6.4 - 8.2 [facility] Comment on above: Performed By: #### 2 28272 ####[facility],[address] [place] [address] 95815 Sodium [Moles/Vol] 143 mmol/L Normal 136 - 145 [facility] Comment on above: Performed By: #### 2 25405 ####[facility],[address] [place] [address] 41964 Urea nitrogen [Mass/Vol] 28 mg/dL High 7 - 18 [facility] Comment on above: Performed By: #### 2 55068 ####[facility],[address] [place] [address] 00035 T4, FREE [CCL]on 12-18-2024 Free T4 [Mass/Vol] 1.2 ng/dL Normal 0.9-1.7 [facility] Comment on above: Result Comment: [place] [address] Wojciech Fuentes III, M.D. [id number] Performed By: #### 2 80321 #### [facility],[address] [place] [address] 35862 CBC + DIFFon 12-17-2024 Baso # 0.02 x10EE3/UL Normal 0.00 - 0.10 [facility] Comment on above: Performed By: #### 2 82245 #### [facility],[address] [place] [address] 58923 Basophils/100 WBC (Bld) 0.3 % Normal 0.0 - 2.0 [facility] Comment on above: Performed By: #### 2 74106 #### [facility],[address] [place] [address] 57224 CBC + DIFF Normal [facility] Comment on above: Result Comment: CBC- COMPLETE BLOOD COUNT Performed By: #### 2 00263 #### [facility],[address] [place] [address] 41646 EO # 0.02 x10EE3/UL Normal 0.00 - 0.50 [facility] Comment on above: Performed By: #### 2 59756 #### [place] [address] Eosinophils/100 WBC (Bld) 0.3 % Normal 0.0 - 7.0 [facility] Comment on above: Performed By: #### 2 42626 #### [facility],[address] [place] [address] Erythrocyte distribution width (RBC) [Ratio] 12.7 % Normal 12.0 - 15.6 [facility] Comment on above: Performed By: #### 2 83126 #### [place] [address] Hematocrit (Bld) [Volume fraction] 42.0 % Normal 40.0 - 52.0 [facility] Comment on above: Performed By: #### 2 19485 #### [place] [address] Hemoglobin (Bld) [Mass/Vol] 13.9 g/dL Normal 13.0 - 17.5 [facility] Comment on above: Performed By: #### 2 45669 #### [facility],[address] [place] [address] Lymph # 0.98 x10EE3/UL Normal 0.80 - 2.80 [facility] Comment on above: Performed By: #### 2 32472 #### [place] [phone] Lymphocytes/100 WBC (Bld) 16.9 % Low 20.0 - 45.0 [facility] Comment on above: Performed By: #### 2 67499 #### [place] [address] MANUAL DIFF N/A Normal [facility] Comment on above: Performed By: #### 2 62314 #### [place] [address] MCH (RBC) [Entitic mass] 34 pg High 27 - 33 [facility] Comment on above: Performed By: #### 2 98818 #### [address] [address] MCHC 33 X10 3 Normal 32 - 36 [facility] Comment on above: Performed By: #### 2 84432 #### [facility],[address] [place] [address] 68875 MCV (RBC) [Entitic vol] 102 fL High 81 - 98 [facility] Comment on above: Performed By: #### 2 20043 #### [facility],[address] [place] [address] 29598 [place] # 0.65 x10EE3/UL Normal 0.20 - 1.00 [facility] Comment on above: Performed By: #### 2 18282 #### [facility],[address] [place] [address] 73246 MONOS % 11.3 % High 0.0 - 10.0 [facility] Comment on above: Performed By: #### 2 00753 #### [facility],[address] [place] [address] 21247 Morphology Yao (Bld) [Interp] N/A Normal [facility] Comment on above: Performed By: #### 2 05800 #### [facility],[address] [place] [address] 67847 Neut # 4.10 x10EE3/UL Normal 1.50 - 7.10 [facility] Comment on above: Performed By: #### 2 25299 #### [address] [address] Neutrophils/100 WBC (Bld) 71.1 % Normal 46.0 - 76.0 [facility] Comment on above: Performed By: #### 2 90709 #### [place] [phone] PLATELET 190 x10EE3/UL Normal 150 - 450 [facility] Comment on above: Performed By: #### 2 79609 #### [facility],[address] [place] [address] 02722 Platelet mean volume (Bld) [Entitic vol] 8.7 fL Normal 6.4 - 10.5 [facility] Comment on above: Result Comment: AUTO MATED DIFFERENTIAL Performed By: #### 2 97690 #### [facility],[address] [place] [address] RBC 4.12 x 10EE6/UL Low 4.50 - 6.00 [facility] Comment on above: Performed By: #### 2 42710 #### [facility],[address] [place] [address] 53746 WBC 5.8 x 10EE3/UL Normal 4.5 - 10.8 [facility] Comment on above: Performed By: #### 2 68715 #### [facility],[address] [place] [address] 86835 CMP with eGFRon 12-17-2024 AGE 84 years Normal [facility] Comment on above: Performed By: #### 2 10678 ####[facility],[address] [place] [address] 11430 Albumin [Mass/Vol] 3.5 g/dL Normal 3.4 - 5.0 [facility] Comment on above: Performed By: #### 2 85836 ####[facility],[address] [place] [address] 87834 Albumin/Globulin [Mass ratio] 1.0 {ratio} Normal 0.9 - 1.6 [facility] Comment on above: Performed By: #### 2 07379 ####[facility],[address] [place] [address] 00057 ALK PHOS 117 U/L High 46 - 116 [facility] Comment on above: Performed By: #### 2 96242 ####[facility],[address] [place] [address] 24868 ALT [Catalytic activity/Vol] 28 U/L Normal 16 - 63 [facility] Comment on above: Performed By: #### 2 91113 ####[facility],[address] [place] [address] 63749 Anion gap [Moles/Vol] 11 mmol/L Normal 10 - 20 [facility] Comment on above: Performed By: #### 2 37856 ####[facility],[address] [place] [address] 45681 AST [Catalytic activity/Vol] 17 U/L Normal 15 - 37 [facility] Comment on above: Performed By: #### 2 96348 ####[facility],[address] [place] [address] 11852 B/C RATIO 22 ratio Normal 0 - 30 [facility] Comment on above: Performed By: #### 2 45334 ####[facility],[address] [place] [address] 75463 Bilirubin [Mass/Vol] 0.7 mg/dL Normal 0.2 - 1.0 [facility] Comment on above: Performed By: #### 2 51339 ####[facility],[address] [place] [address] 14574 Calcium [Mass/Vol] 9.0 mg/dL Normal 8.5 - 10.1 [facility] Comment on above: Performed By: #### 2 68142 ####[facility],[address] [place] [address] 88766 Chloride [Moles/Vol] 106 mmol/L Normal 98 - 107 [facility] Comment on above: Performed By: #### 2 63554 ####[facility],[address] [place] [address] 20977 CMP with eGFR Normal [facility] Comment on above: Result Comment: COMP REHENSIVE METABOLIC PANEL Performed By: #### 2 11104 ####[facility],[address] [place] [address] 11345 CO2 [Moles/Vol] 28.8 mmol/L Normal 21.0 - 32.0 [facility] Comment on above: Performed By: #### 2 93073 ####[facility],[address] [place] [address] 90738 Creatinine [Mass/Vol] 1.05 mg/dL Normal 0.70 - 1.30 [facility] Comment on above: Performed By: #### 2 41563 ####[facility],[address] [place] [address] 99959 GFR/1.73 sq M.predicted among non-blacks MDRD (S/P/Bld) [Vol rate/Area] mL/min/{1.73_m2} Normal 60 - 999 [facility] Comment on above: Performed By: #### 2 66288 ####[facility],[address] [place] [address] Result Comment: ACCO RDING TO THE NATIONAL KIDNEY DISEASE EDUCATION PROGRAM(NKDE), A NORMAL eGFR IS A VALUE GREATER THAN OR EQUAL TO 60 ML/MIN/1.73 SQ METERS. CHRONIC KIDNEY DISEASE: <60mL/MIN/1.73 SQ METERS KIDNEY FAILURE: <15mL/MIN/1.73 SQ METERS THIS TEST SHOULD ONLY BE USED FOR PATIENTS 18 YEARS OF AGE AND OLDER. Globulin (S) [Mass/Vol] 3.4 g/dL Normal 1.5 - 3.8 [facility] Comment on above: Performed By: #### 2 19371 ####[facility],[address] [place] [address] 00574 Glucose [Mass/Vol] 93 mg/dL Normal 74 - 106 [facility] Comment on above: Performed By: #### 2 88587 ####[facility],[address] [place] [address] 48419 Potassium [Moles/Vol] 4.3 mmol/L Normal 3.5 - 5.1 [facility] Comment on above: Performed By: #### 2 48726 ####[facility],[address] [place] [address] 75978 Protein [Mass/Vol] 6.9 g/dL Normal 6.4 - 8.2 [facility] Comment on above: Performed By: #### 2 25281 ####[facility],[address] [place] [address] 64955 Sodium [Moles/Vol] 141 mmol/L Normal 136 - 145 [facility] Comment on above: Performed By: #### 2 04082 ####[facility],[address] [place] [address] 40720 Urea nitrogen [Mass/Vol] 23 mg/dL High 7 - 18 [facility] Comment on above: Performed By: #### 2 60731 ####[facility],[address] [place] [address] 84362 LIPID PROFILEon 12-17-2024 Cholesterol [Mass/Vol] 158 mg/dL Normal 0 - 240 [facility] Comment on above: Performed By: #### 2 16988 #### [facility],[address] [place] [address] 82541 Cholesterol in HDL [Mass/Vol] 72 mg/dL High 40 - 60 [facility] Comment on above: Performed By: #### 2 73717 #### [facility],[address] [place] [address] 60613 Cholesterol in LDL [Mass/Vol] 81 mg/dL Normal 0 - 129 [facility] Comment on above: Performed By: #### 2 23790 #### [facility],[address] [place] [address] 85511 Cholesterol.total/Beatrice sterol in HDL [Mass ratio] 2.2 {ratio} Normal 0.0 - 5.0 [facility] Comment on above: Performed By: #### 2 86666 #### [facility],[address] [place] [address] 92656 Lipid 1996 panel Normal [facility] Comment on above: Result Comment: LIPI D PROFILE Performed By: #### 2 37839 #### [facility],[address] [place] [address] 23379 Triglyceride [Mass/Vol] 27 mg/dL Normal 0 - 150 [facility] Comment on above: Performed By: #### 2 79096 #### [facility],[address] [place] [address] 47296 T4 Free SerPl-mCncon 025 Free T4 [Mass/Vol] 1.2 ng/dL Normal 0.9-1.7 [facility] Comment on above: Order Comment: Speci men Type: BLOOD SPECIMEN Ordering Facility: [facility] Address: [address] [place] [address] Performed By: #### 3 024-7 #### [facility] CLIA [id number] [address] [place] [address] [place] TSHon 12-17-2024 TSH Qn 3.05 m[IU]/L Normal 0.35 - 3.74 [facility] Comment on above: Performed By: #### 2 21367 #### [facility],[address] [place] [address] 01080 Carotid Duplex Ultrasoundon 10-28-2024 Carotid Duplex Ultrasound [facility] [address] [place] [address] Carotid Duplex Ultrasound 10/28/24 1300 MR#: [id number] Acct: [id number] Name: SABIHA WEBBER Rep #: [id number] : 1940 83 From: Blake Gonzalez MD [...] in left vertebral artery. Procedure Carotid Duplex 54302. This is a Carotid Duplex examination using [...] Date Dictated: 10/28/24 1300 Date Transcribed: 10/29/24940 Legal Mediator: Signed Normal [facility] CBC + DIFFon 10-16-2024 Baso # 0.03 x10EE3/UL Normal 0.00 - 0.10 [facility] Comment on above: Performed By: #### 2 68025 ####[facility],[address] [place] [address] 27228 Basophils/100 WBC (Bld) 0.3 % Normal 0.0 - 2.0 [facility] Comment on above: Performed By: #### 2 96774 ####[facility],[address] [place] [address] 53090 CBC + DIFF Normal [facility] Comment on above: Result Comment: CBC- COMPLETE BLOOD COUNT Performed By: #### 2 35888 ####[facility],[address] [place] [address] 50548 EO # 0.06 x10EE3/UL Normal 0.00 - 0.50 [facility] Comment on above: Performed By: #### 2 74577 ####[facility],[address] [place] [address] 83714 Eosinophils/100 WBC (Bld) 0.6 % Normal 0.0 - 7.0 [facility] Comment on above: Performed By: #### 2 69807 ####[facility],[address] [place] [address] 89673 Erythrocyte distribution width (RBC) [Ratio] 13.6 % Normal 12.0 - 15.6 [facility] Comment on above: Performed By: #### 2 33938 ####[facility],[address] [place] [address] 72642 Hematocrit (Bld) [Volume fraction] 42.4 % Normal 40.0 - 52.0 [facility] Comment on above: Performed By: #### 2 82771 ####[facility],[address] [place] [address] 52786 Hemoglobin (Bld) [Mass/Vol] 14.1 g/dL Normal 13.0 - 17.5 [facility] Comment on above: Performed By: #### 2 21858 ####[facility],[address] [place] [address] 99122 Lymph # 0.70 x10EE3/UL Low 0.80 - 2.80 [facility] Comment on above: Performed By: #### 2 86931 ####[facility],[address] [place], [place] [address] Lymphocytes/100 WBC (Bld) 6.7 % Low 20.0 - 45.0 [facility] Comment on above: Performed By: #### 2 72825 ####[facility],[address] [place] [address] 19006 MANUAL DIFF N/A Normal [facility] Comment on above: Performed By: #### 2 45077 ####[facility],[address] [place] [address] 30145 MCH (RBC) [Entitic mass] 34 pg High 27 - 33 [facility] Comment on above: Performed By: #### 2 52518 ####[facility],[address] [place] [address] 18276 MCHC 33 X10 3 Normal 32 - 36 [facility] Comment on above: Performed By: #### 2 75520 ####[facility],[address] [place] [address] 66409 MCV (RBC) [Entitic vol] 104 fL High 81 - 98 [facility] Comment on above: Performed By: #### 2 99348 ####[facility],[address] [place] [address] 27908 [place] # 1.04 x10EE3/UL High 0.20 - 1.00 [facility] Comment on above: Performed By: #### 2 67619 ####[facility],[address] [place] [address] 95749 MONOS % 10.1 % High 0.0 - 10.0 [facility] Comment on above: Performed By: #### 2 63339 ####[facility],[address] [place] [address] 98321 Morphology Yao (Bld) [Interp] N/A Normal [facility] Comment on above: Performed By: #### 2 24136 ####[facility],[address] [place] [address] 65110 Neut # 8.55 x10EE3/UL High 1.50 - 7.10 [facility] Comment on above: Performed By: #### 2 04844 ####[facility],[address] [place] [address] 74490 Neutrophils/100 WBC (Bld) 82.4 % High 46.0 - 76.0 [facility] Comment on above: Performed By: #### 2 85693 ####[facility],[address] [place] [address] 68845 PLATELET 194 x10EE3/UL Normal 150 - 450 [facility] Comment on above: Performed By: #### 2 91876 ####[facility],[address] [place] [address] 14062 Platelet mean volume (Bld) [Entitic vol] 9.5 fL Normal 6.4 - 10.5 [facility] Comment on above: Result Comment: AUTO MATED DIFFERENTIAL Performed By: #### 2 56279 ####[facility],[address] [place] [address] 70187 RBC 4.10 x 10EE6/UL Low 4.50 - 6.00 [facility] Comment on above: Performed By: #### 2 50006 ####[facility],[address] [place] [address] 02444 WBC 10.4 x 10EE3/UL Normal 4.5 - 10.8 [facility] Comment on above: Performed By: #### 2 24254 ####[facility],[address] [place] [address] 55482 CMP with eGFRon 10-16-2024 AGE 83 years Normal [facility] Comment on above: Performed By: #### 2 73300 #### [facility],[address] [place] [address] 84475 Albumin [Mass/Vol] 3.3 g/dL Low 3.4 - 5.0 [facility] Comment on above: Performed By: #### 2 37268 #### [facility],[address] [place] [address] 69822 Albumin/Globulin [Mass ratio] 1.0 {ratio} Normal 0.9 - 1.6 [facility] Comment on above: Performed By: #### 2 52753 #### [facility],[address] [place] [address] 21153 ALK PHOS 100 U/L Normal 46 - 116 [facility] Comment on above: Performed By: #### 2 23075 #### [facility],[address] [place] [address] 24094 ALT [Catalytic activity/Vol] 36 U/L Normal 16 - 63 [facility] Comment on above: Performed By: #### 2 14101 #### [facility],[address] [place] [address] 12645 Anion gap [Moles/Vol] 7 mmol/L Low 10 - 20 [facility] Comment on above: Performed By: #### 2 14663 #### [facility],[address] [place] [address] 55062 AST [Catalytic activity/Vol] 21 U/L Normal 15 - 37 [facility] Comment on above: Performed By: #### 2 93079 #### [facility],[address] [place] [address] 01534 B/C RATIO 23 ratio Normal 0 - 30 [facility] Comment on above: Performed By: #### 2 07693 #### [facility],[address] [place] [address] 61577 Bilirubin [Mass/Vol] 0.6 mg/dL Normal 0.2 - 1.0 [facility] Comment on above: Performed By: #### 2 26565 #### [facility],[address] [place] [address] 06893 Calcium [Mass/Vol] 9.0 mg/dL Normal 8.5 - 10.1 [facility] Comment on above: Performed By: #### 2 14519 #### [facility],[address] [place] [address] 65318 Chloride [Moles/Vol] 107 mmol/L Normal 98 - 107 [facility] Comment on above: Performed By: #### 2 30012 #### [facility],[address] [place] [address] 27791 CMP with eGFR Normal [facility] Comment on above: Result Comment: COMP REHENSIVE METABOLIC PANEL Performed By: #### 2 46835 #### [facility],[address] [place] [address] 09511 CO2 [Moles/Vol] 30.8 mmol/L Normal 21.0 - 32.0 [facility] Comment on above: Performed By: #### 2 01771 #### [facility],[address] [place] [address] 17575 Creatinine [Mass/Vol] 1.11 mg/dL Normal 0.70 - 1.30 [facility] Comment on above: Performed By: #### 2 25946 #### [facility],[address] [place] [address] 99654 GFR/1.73 sq M.predicted among non-blacks MDRD (S/P/Bld) [Vol rate/Area] mL/min/{1.73_m2} Normal 60 - 999 [facility] Comment on above: Performed By: #### 2 25335 #### [facility],[address] [place] [address] 11215 Result Comment: ACCO RDING TO THE NATIONAL KIDNEY DISEASE EDUCATION PROGRAM(NKDE), A NORMAL eGFR IS A VALUE GREATER THAN OR EQUAL TO 60 ML/MIN/1.73 SQ METERS. CHRONIC KIDNEY DISEASE: <60mL/MIN/1.73 SQ METERS KIDNEY FAILURE: <15mL/MIN/1.73 SQ METERS THIS TEST SHOULD ONLY BE USED FOR PATIENTS 18 YEARS OF AGE AND OLDER. Globulin (S) [Mass/Vol] 3.3 g/dL Normal 1.5 - 3.8 [facility] Comment on above: Performed By: #### 2 69391 #### [facility],[address] [place] [address] 90581 Glucose [Mass/Vol] 86 mg/dL Normal 74 - 106 [facility] Comment on above: Performed By: #### 2 16315 #### [facility],[address] [place] [address] 44553 Potassium [Moles/Vol] 4.1 mmol/L Normal 3.5 - 5.1 [facility] Comment on above: Performed By: #### 2 83935 #### [facility],[address] [place] [address] 58635 Protein [Mass/Vol] 6.6 g/dL Normal 6.4 - 8.2 [facility] Comment on above: Performed By: #### 2 34465 #### [facility],[address] [place] [address] 51973 Sodium [Moles/Vol] 141 mmol/L Normal 136 - 145 [facility] Comment on above: Performed By: #### 2 59792 #### [facility],[address] [place] [address] 47284 Urea nitrogen [Mass/Vol] 25 mg/dL High 7 - 18 [facility] Comment on above: Performed By: #### 2 57356 #### [facility],[address] [place] [address] 81027 ED MED ADMINISTRATION DETAIL on 09-06-2024 ED MED ADMINISTRATION DETAIL Clerical Coordinator Medication Administration Record [address] [address] [id number] 09/06/2024 Patient: SABIHA WEBBER Sex: Male : [...] and precautions. Verbalizes understanding. - 14:24 Villa Edwrads R.N. 1 of 1 Normal [facility] ED NURSES CLINICAL NOTEon ED NURSES CLINICAL NOTE Nurse Narrative Nurse Clinical Narrative [address] [address] [id number] 09/06/2024 Patient: SABIHA WEBBER Sex: Male : [...] Melendez R.N. 09/06/24 17:10:38 EST) Generated by [facility] 3 of 3 Normal [facility] ED ORDER SHEET (CPOE ONLY)on 09-06-2024 ED ORDER SHEET (CPOE ONLY) Order Sheet Order Sheet [address] [place] [address] [id number] 09/06/2024 Patient: SABIHA WEBBER Sex: Male : [...] PHYSICIAN CLINICAL REPORT Narrative Physician Clinical Narrative [address] [place] [address] [id number] 09/06/2024 Patient: SABIHA WEBBER Sex: Male : [...] Leblanc D.O. 09/06/24 16:04:18 EST) Generated by [facility] 3 of 3 Normal [facility] ED [facility] BILL 09-06-2024 ED [facility] [address] [place] [address] [phone] 09/06/2024 Patient: SABIHA WEBBER Sex: Male : 1940 Age: 83y Item Professional Category Description Facility Code Code Quantity Fee Total Nurse/E/M EMERGENCY 814429 1 $0.00 $0.00 DEPARTMENT VISIT MODERATE SEVERITY (63368-17) Grand Total $0.00 Providers Luis Leblanc D.O. [...] ED VISIT SUMMARY Visit Overview Visit Overview [address] [place] [address] [id number] 09/06/2024 Patient: SABIHA WEBBER Sex: Male : [...] FLOW SHEET Vitals Vital Sign Flow Sheet [address] [address] [id number] 09/06/2024 Patient: SABIHA WEBBER Sex: Male : 1940 Age: 83y Measurements Wt: 72.6 kg Measured Time BP MAP HR RR O2Sat ETCO2 Temp Pain [facility] RTS 16:57 09/06/2024 124/79 94 72 16 96% 98.0 F 1 14:10 09/06/2024 143/81 102 87 18 95% 98.9 F 6 1 of 1 Normal [facility] FEMUR RT 2+ VIEWSon 09-06-20 FEMUR RT 2+ VIEWS [address] [address] Patient: SABIHA WEBBER Phone#: : 1940 Age: 83 Gender: M Pt. Type: ER Account: [id number] Location: 052 Ordering: LUIS LEBLANC Exam Date: 09/06/2024/14:47 Family Phys: BUTROS LATOUF Charge Code: [id number] Physician: [place] Order #: [id number] Dose#: PROCEDURE: X-RAY FEMUR RT MIN 2 [...] 09-06-2024 KNEE COMPLETE RT MIN 4 VIEWS [place] [address] Patient: SABIHA WEBBER Phone#: : 1940 Age: 83 Gender: M Pt. Type: ER Account: [id number] Location: 052 Ordering: LUIS LEBLANC Exam Date: 09/06/2024/14:38 Family Phys: BUTROS LATOUF Charge Code: [id number] Physician: [place] Order #: [id number] Dose#: PROCEDURE: X-RAY KNEE RT COMPLETE 4 [...] # 0.02 x10EE3/UL Normal 0.00 - 0.10 [facility] Comment on above: Performed By: #### 2 83195 ####[facility],[address] [place] [address] 96839 Basophils/100 WBC (Bld) 0.3 % Normal 0.0 - 2.0 [facility] Comment on above: Performed By: #### 2 46239 ####[facility],[address] [place] [address] CBC + DIFF Normal [facility] Comment on above: Result Comment: CBC- COMPLETE BLOOD COUNT Performed By: #### 2 49284 ####[facility],[address] [place] [address] EO # 0.03 x10EE3/UL Normal 0.00 - 0.50 [facility] Comment on above: Performed By: #### 2 29187 ####[facility],[address] [place] [address] 18220 Eosinophils/100 WBC (Bld) 0.5 % Normal 0.0 - 7.0 [facility] Comment on above: Performed By: #### 2 87668 ####[facility],[address] [place] [address] Erythrocyte distribution width (RBC) [Ratio] 13.6 % Normal 12.0 - 15.6 [facility] Comment on above: Performed By: #### 2 63992 ####[facility],[address] [place] [address] Hematocrit (Bld) [Volume fraction] 43.5 % Normal 40.0 - 52.0 [facility] Comment on above: Performed By: #### 2 78692 ####[facility],[address] [place] [address] 21855 Hemoglobin (Bld) [Mass/Vol] 14.7 g/dL Normal 13.0 - 17.5 [facility] Comment on above: Performed By: #### 2 35615 ####[facility],[address] [place], [place] [address] Lymph # 0.99 x10EE3/UL Normal 0.80 - 2.80 [facility] Comment on above: Performed By: #### 2 64946 ####[facility],[address] [place] [address] 04490 Lymphocytes/100 WBC (Bld) 13.4 % Low 20.0 - 45.0 [facility] Comment on above: Performed By: #### 2 05812 ####[facility],[address] [place] [address] MANUAL DIFF N/A Normal [facility] Comment on above: Performed By: #### 2 99092 ####[facility],[address] [place] [address] MCH (RBC) [Entitic mass] 34 pg High 27 - 33 [facility] Comment on above: Performed By: #### 2 15313 ####[facility],[address] [place] [address] MCHC 34 X10 3 Normal 32 - 36 [facility] Comment on above: Performed By: #### 2 77551 ####[facility],[address] [place], [place] [phone] MCV (RBC) [Entitic vol] 100 fL High 81 - 98 [facility] Comment on above: Performed By: #### 2 67964 ####[facility],[address] [place] [address] [place] # 0.60 x10EE3/UL Normal 0.20 - 1.00 [facility] Comment on above: Performed By: #### 2 75934 ####[address] [address] MONOS % 8.0 % Normal 0.0 - 10.0 [facility] Comment on above: Performed By: #### 2 69260 ####[facility],[address] [place] [address] 33398 Morphology Yao (Bld) [Interp] N/A Normal [facility] Comment on above: Performed By: #### 2 54286 ####[facility],[address] [place] [address] 57716 Neut # 5.79 x10EE3/UL Normal 1.50 - 7.10 [facility] Comment on above: Performed By: #### 2 66817 ####[facility],[address] [place] [address] 24584 Neutrophils/100 WBC (Bld) 77.9 % High 46.0 - 76.0 [facility] Comment on above: Performed By: #### 2 03900 ####[facility],[address] [place] [address] 94597 PLATELET 198 x10EE3/UL Normal 150 - 450 [facility] Comment on above: Performed By: #### 2 21761 ####[facility],[address] [place] [address] 39478 Platelet mean volume (Bld) [Entitic vol] 8.8 fL Normal 6.4 - 10.5 [facility] Comment on above: Result Comment: AUTO MATED DIFFERENTIAL Performed By: #### 2 44627 ####[facility],[address] [place] [address] 25420 RBC 4.33 x 10EE6/UL Low 4.50 - 6.00 [facility] Comment on above: Performed By: #### 2 66538 ####[facility],[address] [place] [address] 64114 WBC 7.4 x 10EE3/UL Normal 4.5 - 10.8 [facility] Comment on above: Performed By: #### 2 81676 ####[facility],[address] [place] [address] 73294 CMP with eGFRon 07-31-2024 AGE 83 years Normal [facility] Comment on above: Performed By: #### 2 28651 #### [facility],[address] [place] [address] 78411 Albumin [Mass/Vol] 3.7 g/dL Normal 3.4 - 5.0 [facility] Comment on above: Performed By: #### 2 80840 #### [facility],[address] [place] [address] Albumin/Globulin [Mass ratio] 1.0 {ratio} Normal 0.9 - 1.6 [facility] Comment on above: Performed By: #### 2 37674 #### [facility],[address] [place] [address] ALK PHOS 109 U/L Normal 46 - 116 [facility] Comment on above: Performed By: #### 2 60111 #### [facility],[address] [place] [address] ALT [Catalytic activity/Vol] 25 U/L Normal 16 - 63 [facility] Comment on above: Performed By: #### 2 06653 #### [facility],[address] [place] [address] Anion gap [Moles/Vol] 12 mmol/L Normal 10 - 20 [facility] Comment on above: Performed By: #### 2 96291 #### [facility],[address] [place] [address] AST [Catalytic activity/Vol] 23 U/L Normal 15 - 37 [facility] Comment on above: Performed By: #### 2 48160 #### [facility],[address] [place] [address] B/C RATIO 22 ratio Normal 0 - 30 [facility] Comment on above: Performed By: #### 2 10852 #### [facility],[address] [place] [address] 79648 Bilirubin [Mass/Vol] 0.7 mg/dL Normal 0.2 - 1.0 [facility] Comment on above: Performed By: #### 2 91961 #### [facility],[address] [place] [address] 66842 Calcium [Mass/Vol] 9.7 mg/dL Normal 8.5 - 10.1 [facility] Comment on above: Performed By: #### 2 17515 #### [facility],[address] [place], [place] [address] Chloride [Moles/Vol] 105 mmol/L Normal 98 - 107 [facility] Comment on above: Performed By: #### 2 00536 #### [facility],[address] [place] [address] CMP with eGFR Normal [facility] Comment on above: Result Comment: COMP REHENSIVE METABOLIC PANEL Performed By: #### 2 65522 #### [facility],[address] [place] [address] CO2 [Moles/Vol] 29.1 mmol/L Normal 21.0 - 32.0 [facility] Comment on above: Performed By: #### 2 32539 #### [facility],[address] [place], [place] [address] Creatinine [Mass/Vol] 1.22 mg/dL Normal 0.70 - 1.30 [facility] Comment on above: Performed By: #### 2 31436 #### [facility],[address] [place] [address] eGFR 57 ML/MINUTE Low 60 - 999 [facility] Comment on above: Performed By: #### 2 99088 #### [facility],[address] [place], [place] [address] GFR/1.73 sq M.predicted among non-blacks MDRD (S/P/Bld) [...] AGE AND OLDER. Performed By: #### 2 79717 #### [facility],[address] [place] [address] 79134 Globulin (S) [Mass/Vol] 3.7 g/dL Normal 1.5 - 3.8 [facility] Comment on above: Performed By: #### [id number] #### [facility],[address] [place] [address]41 Glucose [Mass/Vol] 97 mg/dL Normal 74 - 106 [facility] Comment on above: Performed By: #### [id number] #### [facility],[address] [place] [address] 09833 Potassium [Moles/Vol] 4.9 mmol/L Normal 3.5 - 5.1 [facility] Comment on above: Performed By: #### [id number] #### [facility],[address] [place] [address] 72749 Protein [Mass/Vol] 7.4 g/dL Normal 6.4 - 8.2 [facility] Comment on above: Performed By: #### 2 [id number] #### [facility],[address] [place] [address] 94076 Sodium [Moles/Vol] 141 mmol/L Normal 136 - 145 [facility] Comment on above: Performed By: #### [id number] #### [facility],[address] [place] [address] 98739 Urea nitrogen [Mass/Vol] 27 mg/dL High 7 - 18 [facility] Comment on above: Performed By: #### 2 [id number] #### [facility],[address] [place] [address] No Panel InformationOrdered By: Blake Gonzalez on 09-26-2023 Estimated GFR (MDRD) Amer 76 mL/min >60 [facility] Comment on above: GFR Calc Estimated GFR (MDRD) Non-Af Amer 63 mL/min >60 [facility] Comment on above: Non- GFR Calc Serum or plasma creatinine m easurement (mass/volume)Ordered By: Blake Gonzalez on 09-26-2023 Creatinine [Mass/Vol] 1.18 mg/dL 0.70-1.30 [facility] Comment on above: The validity of the calculated GFR & GFRAA in patients over 70 years has not been determined. Clinical correlation is essential. Vital Signs Date Time Vital Sign Value Performing Clinician Facility 06-09-2025 16:10-0400 Body temperature 98.2 [degF] Reanna Diaz PA Work Phone: [facility] 06-09-2025 16:10-0400 Body weight 61.23 kg Reanna Diaz PA Work Phone: [facility] 06-09-2025 16:10-0400 Diastolic blood pressure 79 mm[Hg] Reanna Diaz PA Work Phone: [facility] 06-09-2025 16:10-0400 Heart rate 86 /min Reanna Diaz PA Work Phone: [facility] 06-09-2025 16:10-0400 Respiratory rate 16 /min Reanna Diaz PA Work Phone: [facility] 06-09-2025 16:10-0400 SaO2% (BldA) [Mass fraction] 95 % Reanna Diaz PA Work Phone: [facility] 06-09-2025 16:10-0400 Systolic blood pressure 144 mm[Hg] Reanna Diaz PA Work Phone: [facility] 12-20-2023 14:47-0400 Body temperature 97.39 [degF] Cristina Elias GRE TUTOR.TRAFFIC DIVISION COMMANDING OFFICER Work Phone: [facility] 12-20-2023 14:47-0400 Body weight 62.9 kg Cristina Elias GRE TUTOR.TRAFFIC DIVISION COMMANDING OFFICER Work Phone: [facility] 12-20-2023 14:47-0400 Diastolic blood pressure 61 mm[Hg] Cristina Elias GRE TUTOR.TRAFFIC DIVISION COMMANDING OFFICER Work Phone: [facility] 12-20-2023 14:47-0400 Heart rate 74 /min Cristina Praisler-Wood GRE TUTOR.TRAFFIC DIVISION COMMANDING OFFICER Work Phone: [facility] 12-20-2023 14:47-0400 Respiratory rate 18 /min Cristina Praisler-Wood GRE TUTOR.TRAFFIC DIVISION COMMANDING OFFICER Work Phone: [facility] 12-20-2023 14:47-0400 SaO2% (BldA) [Mass fraction] 99 % Cristina Praisler-Wood GRE TUTOR.TRAFFIC DIVISION COMMANDING OFFICER Work Phone: [facility] 12-20-2023 14:47-0400 Systolic blood pressure 92 mm[Hg] Cristina Praisler-Wood GRE TUTOR.TRAFFIC DIVISION COMMANDING OFFICER Work Phone: [facility] 09-26-2023 13:14-0500 Body temperature 98.4 [degF] Dr. Blake Gonzalez Work Phone: [facility] 09-26-2023 13:14-0500 Body weight 59.[address] Blake Gonzalez Work Phone: [facility] 09-26-2023 13:14-0500 Diastolic blood pressure 76 mm[Hg] Dr. Blake Gonzalez Work Phone: [facility] 09-26-2023 13:14-0500 Heart rate 74 /min Dr. Blake Gonzalez Work Phone: [facility] 09-26-2023 13:14-0500 Respiratory rate 16 /min Dr. Blake Gonzalez Work Phone: [facility] 09-26-2023 13:14-0500 SaO2% (BldA) [Mass fraction] 96 % Dr. Blake Gonzalez Work Phone: [facility] 09-26-2023 13:14-0500 Systolic blood pressure 148 mm[Hg] Dr. Blake Gonzalez Work Phone: [facility] Encounters Encounter Date Encounter Type Care Provider Facility Start: 07-25-2025 End: 07-27-2025 ambulatory VIRGIE GRE TUTOR SEFFENS [facility] Start: 07-01-2025 End: 07-01-2025 [facility] Start: 06-09-2025 End: 06-09-[address] Blake Gonzalez MD -[facility] Work Phone: Start: 06-09-2025 End: 06-09-2025 ambulatory Blake Gonzalez Facility:[facility] Start: 04-26-2025 Non-patient / Non-visit Dr. Blake yuen MD -[facility] Start: 04-26-2025 End: 04-26-2025 ambulatory Reanna POSEY Work Phone: -[facility] Start: 04-26-2025 End: 04-26-2025 Patient encounter procedure Reanna POSEY -[facility] Work Phone: Start: 04-26-2025 End: 04-26-2025 ambulatory Reanna Diaz Facility:[facility] Start: 04-08-2025 End: 04-08-2025 ambulatory TOMEKA GOMES [facility] Start: 01-13-2025 End: 01-13-2025 amb[facility] Start: 12-17-2024 End: 12-17-2024 ambulatory CODY DELANEY [facility] Start: 12-11-2024 ambulatory CODY DELANEY [facility] Start: 10-28-2024 ambulatory Cody Crowrobert Facility: [facility] Start: 10-28-2024 End: 10-28-2024 ambulatory Cody [facility] Facility:[facility] Start: 10-16-2024 End: 10-16-2024 ambulatory TOMEKA GOMES [facility] Start: 09-06-2024 End: 09-06-2024 Emergency department [facility] Start: 07-31-2024 End: 07-31-2024 ambulatory TOMEKA GOMES [facility] Start: 12-20-2023 End: 12-20-2023 Patient encounter procedure Cristina LevinOsvaldo ARMSTRONG Work Phone: [facility] Comment on above: Viral URI with cough (Primary Dx) Start: 10-11-2023 Non-patient / Non-visit Dr. Boo Delaney Work Phone: [facility] Start: 10-11-2023 End: 10-11-[address] Cody Delaney Work Phone: [facility] Work Phone: Start: 10-11-2023 End: 10-11-[address] Cody Delaney Work Phone: [facility]-Cardiovascular Services Work Phone: Start: 09-26-2023 End: 09-26-[address] Blake Gonzalez Work Phone: [facility] Work Phone: Start: 09-26-2023 End: 09-26-[address] Blake Gonzalez Work Phone: [facility]-Laboratory Work Phone: Start: 09-26-2023 End: 09-26-[address] Blake Gonzalez Work Phone: [facility] Work Phone: Start: 08-16-2023 Emergency department patient visit BRENNAN BARROS [facility] Procedures Date Procedure Procedure Detail Performing Clinician Start: 07-26-2025 Urinalysis TOMEKA ROSALVA ANKI Comment on above: Result Comment: URIN ALYSIS Performed By: #### [id number] ####[facility],[address] [place] [address] Start: 07-25-2025 Urinalysis TOMEKA ROSALVA ANKI Comment on above: Result Comment: URIN ALYSIS Performed By: #### 2 [id number] #### [facility],[address] [facility] [address] Start: 10-11-2023 CT angiography of he ad and neck Dr. Cody Delaney Work Phone: Plan of Treatment Date Care Activity Detail Author Start: 05-17-2024 Influenza vaccination Influenza Vaccine (Season Ended) [facility] Start: 09-16-2023 Advance Directive Discussion Advance Directive Discussion [facility] Start: 09-16-2023 Behavioral Health Screening Behavioral Health Screening [facility] Start: 05-17-2023 Covid-19 Vaccine ( season) Covid-19 Vaccine ( season) [facility] Start: 2005 Pneumococcal Vaccine: 65+ (1 of 1 - PCV) Pneumococcal Vaccine: 65+ (1 of 1 - PCV) [facility] Start: 2000 RSV Vaccine (1 - 1-dose 60+ series) RSV Vaccine (1 - 1-dose 60+ series) [facility] Start: 1990 Shingrix Vaccine (1 of 2) Shingrix Vaccine (1 of 2) [facility] Start: 1985 Diabetes Screening Diabetes Screening [facility] Start: 12-16-1959 Urine microalbumin profile DTaP,Tdap,Td Vaccine (1 - Tdap) [facility] Ankle brachial press ure index [facility] CTA Head vessels and Neck vessels W contrast IV [facility] US Carotid arteries [facility] Payers Date Payer Category Payer Self-pay 2023 Unknown [employer] H[employer] POS [id number] 2023-Present [phone] [address] [place] [address] O [id number] 2010 Unknown [id number] 1940 Unknown [id number] 1940 Unknown [id number] [id number] 1940 Unknown [id number] [id number] 1940 Unknown [id number] [id number] 1940 Unknown [id number] [id number] 1940 Unknown [id number] [id number] 1940 Unknown [id number] [id number] 1940 Unknown [id number] [id number] 1940 Unknown [id number] [id number] Unknown [id number] [id number] Unknown [id number] [id number] Unknown [id number] [id number] Unknown [id number] [id number] Unknown [id number] Social History Date Type Detail Facility Start: 09-26-2023 [facility] Start: 1940 Sex Assigned At Male [facility] Start: 12-20-2023 [facility] Never smoked tobacco [facility] Start: 12-20-2023 Tobacco use and exposure Smokeless tobacco non-user [facility] Start: 12-20-2023 History of Social function [facility] Start: 12-20-2023 Tobacco use panel [facility] Start: 1940 Sex Assigned At Not on file [facility] Start: 10-16-2023 Tobacco smoking stat us NHIS Current some day smoker [facility] Clinical Notes 12-20-2023 to 07-25-2025 Note [...] Locations *1: This test was performed at: [address], [facility] 07-25-2025 Note . MICRO - Microbiology [...] Locations *1: This test was performed at: [address], [address] [place] [address] 06-09-2025 Progress note [facility] 06-09-2025 Progress note Note Date/Time June 09, 2025 4:29pm [facility] [address] [place] [address] OFFICE VISIT Date of Service: 06/09/25 MR#: [id number] Acct: [id number] Name: SABIHA WEBBER Rep #: [id number] : 1940 Provider: Dr. Blake Gonzalez MD Age/Sex: 84/M Location: [facility] Status: Signed Intake Vital Signs 06/09/25 16:10 [...] fallen in the past year?: Yes 06/10/25 [id number] <Electronically signed by Blake Lynn> Date _ Blake Joel Signature: Date (if applicable) CC: ~ [facility] Work Phone: 1(228) 185-823512-22-2024 NoteDischarge Instructions Discharge Summary [address] [place] [address] [phone] 09/06/2024 Patient: SABIHA WEBBER Sex: Male : 1940 Age: 83y Thank you for visiting [facility]. You have been evaluated today by [...] Fall Lower Extremity Bruise Patient Signature Facility [facility]er Date/Time 1 of 5 Discharge Instructions General Instructions with ExitWriter [address] [place] [address] [phone] 09/06/2024 Patient: SABIHA WEBBER Sex: Male : 1940 Age: 83y Thank you for visiting [facility]. You have been evaluated today by [...] not included)...[facility]04-05-2024 Instructions* Patient Instructions* Cristnia Elias APRN.TRAFFIC DIVISION COMMANDING OFFICER - 12/20/2023 3:07 PM EDT ASSESSMENT/PLAN: 1. [...] fluids help open respiratory and sinus passages [place] [facility] [place] may offer relief of nasal and head [...] worse rather than better [facility] History of Present illness Narrative* Bess [...] testing, patient declined. CHERYL Brand TEACHING PROVIDER (Physician/PA/GRE TUTOR) NOTE OF PERSONAL INVOLVEMENT IN CARE: I have personally seen and examined the patient and performed the medical decision-making components. I have reviewed the Advanced Practice Registered Nurse (GRE TUTOR) Student's documentation and verified the findings in the note as written. Any additions or changes are noted in bold/italics. 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 Work Phone: Reason for referral (narrative)No reason for referral information availableWOhioHealth Hardin [facility] Hospital Work Phone: Summary Purpose Family History [...] content) DATE CREATED AUTHOR 08/19/2023 Brannon Carmichael [facility] DATE CREATED AUTHOR AUTHOR'S ORGANIZ ATION 12/20/2024 [facility] DATE CREATED AUTHOR AUTHOR'S ORGANIZ ATION 06/11/2025 [facility] DATE CREATED AUTHOR AUTHOR'S ORGANIZ ATION 07/26/2025 [facility] DATE CREATED AUTHOR AUTHOR'S ORGANIZ ATION 07/28/2025 [facility] Care Teams (unrecognized sec tion and content) Team Status: Active Member Role Status Dates Dr. Cody Delaney MD Primary Care Provider Active Team Status: Inactive Member Role Status Dates Dr. Blake Gonzalez MD Attending Provider Active Team Status: Inactive Member Role Status Dates Dr. Cody eDlaney MD Primary Care Provider Active Dr. Blake [...] or prosecute any alcohol or drug abuse patient.[facility] Reason for Visit (unrecogniz ed section [...] BE BASED ON THE PRIMARY CLINICAL RECORDS. [employer] provides no warranty or guarantee of the accuracy or completeness of information in this document.
[2025-09-04 13:10] LABS: Anion Gap 11 (5-15); BUN 35 mg/dL (4-19); BUN/Creat Ratio 19.6 RATIO (10-20); Calcium,Total 9.4 mg/dL (7.6-11.0); Carbon Dioxide 20.1 mmol/L (21.0-32.0); Chloride 101 mmol/L (98-108); Estimated Creatinine Clearance 24.77 ml/min (50-250); Glucose 118 mg/dL (70-99); Potassium 5.4 mmol/L (3.3-5.1)
--- NOTE | 2025-09-04 13:22 | CT_ITS ---
EXAM: CT Abdomen and Pelvis Without Intravenous Contrast CLINICAL INDICATION: ABDOMINAL PAIN POST OP TECHNIQUE: Axial computed tomography images of the abdomen and pelvis without intravenous contrast. This CT exam was performed using one or more of the following dose reduction techniques: automated exposure control, adjustment of the mA and/or kV according to patient size, and/or use of iterative reconstruction technique. RADIATION DOSE: CTDIvol = 6 mGy, DLP = 324 mGy-cm COMPARISON: No relevant prior studies available. FINDINGS: LUNG BASES: See below. PLEURAL SPACE: Emphysematous lung changes. Right pleural effusion with partial consolidation could be atelectasis or pneumonia. Partially visualized soft tissue emphysema of the right chest wall. HEART: Calcified coronary arterial disease. ABDOMEN: LIVER: Unremarkable. GALLBLADDER AND BILE DUCTS: Unremarkable. No calcified stones. No ductal dilation. PANCREAS: Unremarkable. No ductal dilation. SPLEEN: Unremarkable. No splenomegaly. ADRENALS: Unremarkable. No mass. KIDNEYS AND URETERS: Unremarkable. No obstructing stones. No hydronephrosis. STOMACH AND BOWEL: Fecal retention in the colon consistent with constipation. No obstruction. No mucosal thickening. PELVIS: APPENDIX: No findings to suggest acute appendicitis. BLADDER: Bladder wall thickening which may be due to the decompressed state of the bladder or due to cystitis. No stones. REPRODUCTIVE: Unremarkable as visualized. ABDOMEN and PELVIS: INTRAPERITONEAL SPACE: Scattered pneumoperitoneum of the abdomen and pelvis. This could be secondary to recent procedure. Clinical correlation is recommended. No significant fluid collection. BONES/JOINTS: Multilevel endplate degenerative changes and disc degeneration of the visualized spine. No acute fracture. No dislocation. SOFT TISSUES: Extensive subcutaneous emphysema of the abdome, proximal thigh and scrotum n. VASCULATURE: Scattered calcified atherosclerotic disease of aorta. LYMPH NODES: Unremarkable. No enlarged lymph nodes. CT/Abdomen/Pelvis without Cont IMPRESSION: 1. Emphysematous lung changes. Right pleural effusion with partial consolidat ion could be atelectasis or pneumonia. Partially visualized soft tissue emphysema of the right chest wall. 2. Bladder wall thickening which may be due to the decompressed state of the b ladder or due to cystitis. 3. Scattered pneumoperitoneum of the abdomen and pelvis. This could be second lydia to recent procedure. Clinical correlation is recommended. 4. Fecal retention in the colon consistent with constipation. 5. Extensive subcutaneous emphysema of the abdome, proximal thigh and scrotum n. 6. Degenerative changes of the spine as above. Reading Location: [facility]
[2025-09-04 15:09] VITALS: BP 152/89; PULSE 101; RESP 18; TEMP 36.6; O2SAT 99
--- OUTSIDE RECORDS SUMMARY | 2025-09-04 15:53 | XMS RPT_ITS | CCD ---
Author Organization [facility] Care Team Providers Care Interventional Physiatrist Name Role Phone BRENNAN BARROS Attending Unavailable BRENNAN BARROS Primary Care Unavailable BRENNAN BARROS Admitting Unavailable Dr. Blake Gonzalez Attending Provider [phone] Cody Delaney Primary Care Provider Unavailable Primary Care Provider Unavailabl e Reanna Maldonado Attending Provider [phone] Reanna Maldonado Referring Provider [phone] Care Physician, No Primary Primary Care Provider Unavailable Dr. Blake Gonzalez MD Attending Provider [phone] Cody Delaney Primary Care Unavailable Diaz, Reanna Attending Unavailable Diaz, Reanna Referring Unavailable Diaz, Reanna Attending Unavailable Diaz, Reanna Referring Unavailable Care Physician, No Primary Primary Care Unava ilable Cody Delaney Primary Care Unavailable Diaz, Reanna Referring Unavailable Blaek Gonzalez Attending Unavailable Diaz, Reanna Referring Unavailable Lisa Blake Attending Unavailable Care Physician, No Primary Primary Care Unava ilable Blake Gonzalez Attending Unavailable Care Physician, No Primary Primary Care Unava ilable Care Physician, No Primary Referring Unava ilable Reanna Maldonado Attending Physician Care Physician, No Primary Primary Care Physicia n Unavailable Dr. Blake Gonzalez MD Attending Physician [phone] Care Physician, No Primary Referring Provider Un [...] on above: Take 1 capsule by mo [facility] three times a day as needed for cough. folic acid 1 mg oral tablet (5 sources) Start: 4 take 2 tablets by mouth once folic acid 1 mg tablet Take 2 tablets by mouth every afternoon. 0 11/12/2023 Active Start: 02-25-2023 [facility] Folic Acid 1 mg tablet Active 1 mg PO TWICE A DAY February 25, 2023 12:00am Complies with drug therapy Comment on above: Take 2 tablets by mo [facility] every afternoon. 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; Translations: [Other longterm (current) drug therapy] Onset: 07-01-2025 Episodic Other [...] with eGFRon 07-27-2025 AGE 84 years Normal [facility] Comment on above: Performed By: #### 2 [id number] ####[facility],[address] [place] [address] Anion gap [Moles/Vol] 9 mmol/L Low 10 - 20 [facility] Comment on above: Performed By: #### 2 50144 ####[facility],[address] [place] [address] BMP with eGFR Normal [facility] Comment on above: Result Comment: BASI C METABOLIC PANEL Performed By: #### 2 03982 ####[facility],[address] [place] [address] Calcium [Mass/Vol] 8.2 mg/dL Low 8.5 - 10.1 [facility] Comment on above: Performed By: #### 2 55360 ####[facility],[address] [place], [place] [address] Chloride [Moles/Vol] 99 mmol/L Normal 98 - 107 [facility] Comment on above: Performed By: #### 2 33311 ####[facility],[address] [place], [place] [address] CO2 [Moles/Vol] 26.1 mmol/L Normal 21.0 - 32.0 [facility] Comment on above: Performed By: #### 2 20483 ####[facility],[address] [place] [address] Creatinine [Mass/Vol] 0.96 mg/dL Normal 0.70 - 1.[address] [facility] Comment on above: Performed By: #### 2 97821 ####[facility],[address] [place] [address] GFR/1.73 sq M.predicted among non-blacks MDRD (S/P/Bld) [Vol rate/Area] mL/min/{1.73_m2} Normal 60 - 999 [facility] Comment on above: Performed By: #### 2 69277 ####[facility],[address] [place] [address] Result Comment: ACCO RDING TO THE NATIONAL KIDNEY DISEASE EDUCATION PROGRAM(NKDE), A NORMAL eGFR IS A VALUE GREATER THAN OR EQUAL TO 60 ML/MIN/1.73 SQ METERS. CHRONIC KIDNEY DISEASE: <60mL/MIN/1.73 SQ METERS KIDNEY FAILURE: <15mL/MIN/1.73 SQ METERS THIS TEST SHOULD ONLY BE USED FOR PATIENTS 18 YEARS OF AGE AND OLDER. Glucose [Mass/Vol] 83 mg/dL Normal 74 - 106 [facility] Comment on above: Performed By: #### 2 97301 ####[facility],[address] [place], [place] [address] Potassium [Moles/Vol] 4.2 mmol/L Normal 3.5 - 5.1 [facility] Comment on above: Performed By: #### 2 24561 ####[facility],[address] [place] [address] 07423 Sodium [Moles/Vol] 130 mmol/L Low 136 - 145 [facility] Comment on above: Performed By: #### 2 61577 ####[facility],[address] [place] [address] 64224 Urea nitrogen [Mass/Vol] 20 mg/dL High 7 - 18 [facility] Comment on above: Performed By: #### 2 79572 ####[facility],[address] [place] [address] 38976 B12 FOLATE PANELon Cobalamin (Vitamin B12) [Mass/Vol] 1094 pg/mL High 193 - 986 [facility] Comment on above: Performed By: #### 2 17963 #### [facility],[address] [place] [address] 68859 FOLATES 37.7 ng/ml Normal 8.6 - 58.9 [facility] Comment on above: Performed By: #### 2 09649 #### [facility],[address] [place] [address] 31279 CBC + DIFFon 07-26-2025 Baso # 0.02 x10EE3/UL Normal 0.00 - 0.10 [facility] Comment on above: Performed By: #### 2 75938 ####[facility],[address] [place] [address] 04838 Basophils/100 WBC (Bld) 0.3 % Normal 0.0 - 2.0 [facility] Comment on above: Performed By: #### 2 59446 ####[facility],[address] [place] [address] 85639 CBC + DIFF Normal [facility] Comment on above: Result Comment: CBC- COMPLETE BLOOD COUNT Performed By: #### 2 95790 ####[facility],[address] [place] [address] 26966 EO # 0.08 x10EE3/UL Normal 0.00 - 0.50 [facility] Comment on above: Performed By: #### 2 39367 ####[place] [address] Eosinophils/100 WBC (Bld) 1.1 % Normal 0.0 - 7.0 [facility] Comment on above: Performed By: #### 2 24631 ####[facility],[address] [place] [address] Erythrocyte distribution width (RBC) [Ratio] 12.9 % Normal 12.0 - 15.6 [facility] Comment on above: Performed By: #### 2 94784 ####[place] [address] Hematocrit (Bld) [Volume fraction] 39.3 % Low 40.0 - 52.0 [facility] Comment on above: Performed By: #### 2 32921 ####[place] [address] Hemoglobin (Bld) [Mass/Vol] 13.6 g/dL Normal 13.0 - 17.5 [facility] Comment on above: Performed By: #### 2 40169 ####[place] [address] Lymph # 0.84 x10EE3/UL Normal 0.80 - 2.80 [facility] Comment on above: Performed By: #### 2 70062 ####[place] [id number] Lymphocytes/100 WBC (Bld) 11.1 % Low 20.0 - 45.0 [facility] Comment on above: Performed By: #### 2 32700 ####[place] [id number] MANUAL DIFF N/A Normal [facility] Comment on above: Performed By: #### 2 23819 ####[place] [address] MCH (RBC) [Entitic mass] 34 pg High 27 - 33 [facility] Comment on above: Performed By: #### 2 67730 ####[facility],[address] [place] [address] MCHC 35 X10 3 Normal 32 - 36 [facility] Comment on above: Performed By: #### 2 13969 ####[facility],[address] [place] [address] MCV (RBC) [Entitic vol] 98 fL Normal 81 - 98 [facility] Comment on above: Performed By: #### 2 34785 ####[facility],[address] [place] [address] [place] # 1.40 x10EE3/UL High 0.20 - 1.00 [facility] Comment on above: Performed By: #### 2 45736 ####[facility],[address] [place] [address] MONOS % 18.5 % High 0.0 - 10.0 [facility] Comment on above: Performed By: #### 2 66726 ####[facility],[address] [place] [address] Morphology Yao (Bld) [Interp] N/A Normal [facility] Comment on above: Performed By: #### 2 61294 ####[facility],[address] [place] [address] Neut # 5.23 x10EE3/UL Normal 1.50 - 7.10 [facility] Comment on above: Performed By: #### 2 31007 ####[facility],[address] [place] [address] Neutrophils/100 WBC (Bld) 69.0 % Normal 46.0 - 76.0 [facility] Comment on above: Performed By: #### 2 69627 ####[facility],[address] [place] [address] PLATELET 127 x10EE3/UL Low 150 - 450 [facility] Comment on above: Performed By: #### 2 91810 ####[facility],[address] [place] [address] 48328 Platelet mean volume (Bld) [Entitic vol] 8.6 fL Normal 6.4 - 10.5 [facility] Comment on above: Result Comment: AUTO MATED DIFFERENTIAL Performed By: #### 2 60274 ####[facility],[address] [place] [address] RBC 4.03 x 10EE6/UL Low 4.50 - 6.00 [facility] Comment on above: Performed By: #### 2 35109 ####[facility],[address] [place], [place] [address] WBC 7.6 x 10EE3/UL Normal 4.5 - 10.8 [facility] Comment on above: Performed By: #### 2 69365 ####[facility],[address] [place], [place] [address] CMP with eGFRon 07-26-2025 AGE 84 years Normal [facility] Comment on above: Performed By: #### 2 89515 ####[facility],[address] [place], [place] [address] Albumin [Mass/Vol] 2.5 g/dL Low 3.4 - 5.0 [facility] Comment on above: Performed By: #### 2 29597 ####[facility],[address] [place], [place] [address] Albumin/Globulin [Mass ratio] 0.9 {ratio} Normal 0.9 - 1.6 [facility] Comment on above: Performed By: #### 2 91698 ####[facility],[address] [place] [address] 89366 ALK PHOS 67 U/L Normal 46 - 116 [facility] Comment on above: Performed By: #### 2 40975 ####[facility],[address] [place] [address] 20322 ALT [Catalytic activity/Vol] 17 U/L Normal 16 - 63 [facility] Comment on above: Performed By: #### 2 25504 ####[facility],[address] [place] [address] 88252 Anion gap [Moles/Vol] 11 mmol/L Normal 10 - 20 [facility] Comment on above: Performed By: #### 2 94738 ####[facility],[address] [place] [address] 81957 AST [Catalytic activity/Vol] 23 U/L Normal 15 - 37 [facility] Comment on above: Performed By: #### 2 64798 ####[facility],[address] [place] [address] 79672 B/C RATIO 18 ratio Normal 0 - 30 [facility] Comment on above: Performed By: #### 2 11860 ####[facility],[address] [place] [address] 24940 Bilirubin [Mass/Vol] 0.7 mg/dL Normal 0.2 - 1.0 [facility] Comment on above: Performed By: #### 2 64170 ####[facility],[address] [place] [address] 28047 Calcium [Mass/Vol] 8.0 mg/dL Low 8.5 - 10.1 [facility] Comment on above: Performed By: #### 2 73597 ####[facility],[address] [place] [address] 75205 Chloride [Moles/Vol] 98 mmol/L Normal 98 - 107 [facility] Comment on above: Performed By: #### 2 58638 ####[facility],[address] [place] [address] 93668 CMP with eGFR Normal [facility] Comment on above: Result Comment: COMP REHENSIVE METABOLIC PANEL Performed By: #### 2 09952 ####[facility],[address] [place], [place] [address] CO2 [Moles/Vol] 23.5 mmol/L Normal 21.0 - 32.0 [facility] Comment on above: Performed By: #### 2 25672 ####[facility],[address] [place] [address] 80722 Creatinine [Mass/Vol] 0.95 mg/dL Normal 0.70 - 1.[address] [facility] Comment on above: Performed By: #### 2 38300 ####[facility],[address] [place], [place] [address] GFR/1.73 sq M.predicted among non-blacks MDRD (S/P/Bld) [Vol rate/Area] mL/min/{1.73_m2} Normal 60 - 999 [facility] Comment on above: Performed By: #### 2 50350 ####[facility],[address] [place] [address] Result Comment: ACCO RDING TO THE NATIONAL KIDNEY DISEASE EDUCATION PROGRAM(NKDE), A NORMAL eGFR IS A VALUE GREATER THAN OR EQUAL TO 60 ML/MIN/1.73 SQ METERS. CHRONIC KIDNEY DISEASE: <60mL/MIN/1.73 SQ METERS KIDNEY FAILURE: <15mL/MIN/1.73 SQ METERS THIS TEST SHOULD ONLY BE USED FOR PATIENTS 18 YEARS OF AGE AND OLDER. Globulin (S) [Mass/Vol] 2.9 g/dL Normal 1.5 - 3.8 [facility] Comment on above: Performed By: #### 2 45124 ####[facility],[address] [place] [address] 97202 Glucose [Mass/Vol] 95 mg/dL Normal 74 - 106 [facility] Comment on above: Performed By: #### 2 60678 ####[facility],[address] [place] [address] 62788 Potassium [Moles/Vol] 3.9 mmol/L Normal 3.5 - 5.1 [facility] Comment on above: Performed By: #### 2 11785 ####[facility],[address] [place] [address] 21853 Protein [Mass/Vol] 5.4 g/dL Low 6.4 - 8.2 [facility] Comment on above: Performed By: #### 2 16771 ####[facility],[address] [place] [address] 20550 Sodium [Moles/Vol] 129 mmol/L Low 136 - 145 [facility] Comment on above: Performed By: #### 2 69382 ####[facility],[address] [place] [address] 01750 Urea nitrogen [Mass/Vol] 17 mg/dL Normal 7 - 18 [facility] Comment on above: Performed By: #### 2 53064 ####[facility],[address] [place] [address] 30870 TSH W/ REFLEX TO FREE T4on 1 09-25-2024 TSH Qn 3.54 m[IU]/L Normal 0.34 - 5.60 [facility] Comment on above: Performed By: #### 2 49772 #### [facility],[address] [place] [address] 07200 URINALYSISon 07-26-2025 Amorphous NONE Normal [facility] Comment on above: Performed By: #### 2 95884 ####[facility],[address] [place] [address] 36301 Bacteria TRACE Normal [facility] Comment on above: Performed By: #### 2 77661 ####[facility],[address] [place] [address] 34806 Bilirubin Ql (U) Negative Normal NORMAL: NEGATIVE [facility] Comment on above: Performed By: #### 2 15320 ####[facility],[address] [place] [address] 93276 Casts NONE Normal [facility] Comment on above: Performed By: #### 2 61773 ####[facility],[address] [place], [place] [address] Clarity (U) clear Normal NORMAL: CLEAR [facility] Comment on above: Performed By: #### 2 08755 ####[facility],[address] [place], [place] [address] Color (U) p.yel Normal NORMAL: YELLOW [facility] Comment on above: Performed By: #### 2 08403 ####[facility],[address] [place], [place] [address] Crystals LM Nom (Urine sed) NONE Normal [facility] Comment on above: Performed By: #### 2 54348 ####[facility],[address] [place], [place] [address] Epi Cells NONE Normal [facility] Comment on above: Performed By: #### 2 87572 ####[facility],[address] [place], [place] [address] Glucose Ql (U) NORM Normal NORMAL: NORMAL [facility] Comment on above: Performed By: #### 2 56743 ####[facility],[address] [place] [address] 53243 Hemoglobin Ql (U) 150 Abnormal NORMAL: NEGATIVE [facility] Comment on above: Performed By: #### 2 96350 ####[facility],[address] [place] [address] 78557 Ketone Negative Normal NORMAL: NEGATIVE [facility] Comment on above: Performed By: #### 2 86314 ####[facility],[address] [place] [address] 57819 Leukocytes Negative Normal NORMAL: NEGATIVE [facility] Comment on above: Performed By: #### 2 20863 ####[facility],[address] [place] [address] 77831 Mucous NONE Normal [facility] Comment on above: Performed By: #### 2 56510 ####[facility],[address] [place] [address] 21439 Nitrite Ql (U) Negative Normal NORMAL: NEGATIVE [facility] Comment on above: Performed By: #### 2 81893 ####[facility],[address] [place] [address] pH (U) 6 [pH] Normal NORMAL: 5.0-8.0 [facility] Comment on above: Performed By: #### 2 06500 ####[facility],[address] [place] [address] Protein Ql (U) 15 Abnormal NORMAL: NEGATIVE [facility] Comment on above: Performed By: #### 2 53812 ####[facility],[address] [place] [address] Rbc 5-10 Normal 0-3/hpf [facility] Comment on above: Performed By: #### 2 57937 ####[facility],[address] [place] [address] Sp [place] 1.010 Normal NORMAL: 1.010-1.030 [facility] Comment on above: Performed By: #### 2 27910 ####[facility],[address] [place] [address] Specimen Type Catheter Normal [facility] Comment on above: Performed By: #### 2 67686 ####[facility],[address] [place] [address] Urinalysis dipstick W Reflex Microscopic panel (U) SEE BELOW Normal [facility] Comment on above: Result Comment: MICR OSCOPIC Performed By: #### 2 85102 ####[facility],[address] [place] [address] Urobilinog NORM Normal NORMAL: NORMAL [facility] Comment on above: Performed By: #### 2 79318 ####[facility],[address] [place] [address] Wbc NONE Normal 0-5/hpf [facility] Comment on above: Performed By: #### 2 42449 ####[facility],[address] [place] [address] 43899 Yeast NONE Normal [facility] Comment on above: Performed By: #### 2 43069 ####[facility],[address] [place] [address] 49533 VITAMIN B-12on 07-26-2025 Cobalamin (Vitamin B12) [Mass/Vol] 1094 pg/mL High 193 - 986 [facility] Comment on above: Performed By: #### 2 41302 #### [facility],[address] [place] [address] 75091 VITAMIN D, 25 HYDROXYon 07-17 VitD 35.80 ng/mL Normal 30.00 - 100 [facility] Comment on above: Result Comment: 25-O [...] D2 Not Established Performed By: #### 2 27814 ####[facility],[address] [place] [address] 60510 CBC + DIFFon 07-25-2025 Baso # 0.03 x10EE3/UL Normal 0.00 - 0.10 [facility] Comment on above: Performed By: #### 2 63207 ####[facility],[address] [place] [address] 91202 Basophils/100 WBC (Bld) 0.3 % Normal 0.0 - 2.0 [facility] Comment on above: Performed By: #### 2 02774 ####[facility],[address] [place] [address] 04451 CBC + DIFF Normal [facility] Comment on above: Result Comment: CBC- COMPLETE BLOOD COUNT Performed By: #### 2 65038 ####[facility] [place] [address] 87979 EO # 0.07 x10EE3/UL Normal 0.00 - 0.50 [facility] Comment on above: Performed By: #### 2 54555 ####[facility],[address] [place] [address] 93422 Eosinophils/100 WBC (Bld) 0.8 % Normal 0.0 - 7.0 [facility] Comment on above: Performed By: #### 2 94636 ####[facility],[address] [place] [address] Erythrocyte distribution width (RBC) [Ratio] 12.9 % Normal 12.0 - 15.6 [facility] Comment on above: Performed By: #### 2 63070 ####[facility],[address] [place] [address] Hematocrit (Bld) [Volume fraction] 41.0 % Normal 40.0 - 52.0 [facility] Comment on above: Performed By: #### 2 87293 ####[facility],[address] [place] [address] Hemoglobin (Bld) [Mass/Vol] 14.4 g/dL Normal 13.0 - 17.5 [facility] Comment on above: Performed By: #### 2 70304 ####[facility],[address] [place] [address] 63681 Lymph # 0.71 x10EE3/UL Low 0.80 - 2.80 [facility] Comment on above: Performed By: #### 2 79352 ####[facility],[address] [place] [address] 56812 Lymphocytes/100 WBC (Bld) 7.7 % Low 20.0 - 45.0 [facility] Comment on above: Performed By: #### 2 91074 ####[facility],[address] [place], [place] [address] MANUAL DIFF N/A Normal [facility] Comment on above: Performed By: #### 2 14994 ####[facility],[address] [place] [address] 86983 MCH (RBC) [Entitic mass] 34 pg High 27 - 33 [facility] Comment on above: Performed By: #### 2 83848 ####[facility],[address] [place] [address] 64755 MCHC 35 X10 3 Normal 32 - 36 [facility] Comment on above: Performed By: #### 2 31178 ####[facility],[address] [place] [address] 06506 MCV (RBC) [Entitic vol] 98 fL Normal 81 - 98 [facility] Comment on above: Performed By: #### 2 31271 ####[facility],[address] [place] [address] 36392 [place] # 1.47 x10EE3/UL High 0.20 - 1.00 [facility] Comment on above: Performed By: #### 2 96306 ####[facility],[address] [place] [address] 15097 MONOS % 15.9 % High 0.0 - 10.0 [facility] [facility] Comment on above: Performed By: #### 2 09186 ####[facility],[address] [place] [address] 05377 Morphology Yao (Bld) [Interp] N/A Normal [facility] Comment on above: Performed By: #### 2 10606 ####[facility],[address] [place] [address] 97143 Neut # 6.96 x10EE3/UL Normal 1.50 - 7.10 [facility] Comment on above: Performed By: #### 2 74117 ####[facility],[address] [place] [address] 21098 Neutrophils/100 WBC (Bld) 75.3 % Normal 46.0 - 76.0 [facility] Comment on above: Performed By: #### 2 62751 ####[facility],[address] [place] [address] 08733 PLATELET 118 x10EE3/UL Low 150 - 450 [facility] Comment on above: Performed By: #### 2 98570 ####[facility],[address] [place] [address] 60859 Platelet mean volume (Bld) [Entitic vol] 8.7 fL Normal 6.4 - 10.5 [facility] Comment on above: Result Comment: AUTO MATED DIFFERENTIAL Performed By: #### 2 04982 ####[facility],[address] [place] [address] 82694 RBC 4.19 x 10EE6/UL Low 4.50 - 6.00 [facility] Comment on above: Performed By: #### 2 50455 ####[facility],[address] [place] [address] 28968 WBC 9.2 x 10EE3/UL Normal 4.5 - 10.8 [facility] Comment on above: Performed By: #### 2 40365 ####[facility],[address] [place] [address] 63516 CMP with eGFRon 07-25-2025 AGE 84 years Normal [facility] Comment on above: Performed By: #### 2 25241 #### [facility],[address] [place] [address] 00511 Albumin [Mass/Vol] 2.9 g/dL Low 3.4 - 5.0 [facility] Comment on above: Performed By: #### 2 98165 #### [facility],[address] [place] [address] 08131 Albumin/Globulin [Mass ratio] 0.9 {ratio} Normal 0.9 - 1.6 [facility] Comment on above: Performed By: #### 2 56300 #### [facility],[address] [place] [address] 95410 ALK PHOS 86 U/L Normal 46 - 116 [facility] Comment on above: Performed By: #### 2 80803 #### [facility],[address] [place] [address] 12351 ALT [Catalytic activity/Vol] 18 U/L Normal 16 - 63 [facility] Comment on above: Performed By: #### 2 34609 #### [facility],[address] [place] [address] Anion gap [Moles/Vol] 12 mmol/L Normal 10 - 20 [facility] Comment on above: Performed By: #### 2 89117 #### [facility],[address] [place] [address] AST [Catalytic activity/Vol] 23 U/L Normal 15 - 37 [facility] Comment on above: Performed By: #### 2 03284 #### [facility],[address] [place] [address] B/C RATIO 25 ratio Normal 0 - 30 [facility] Comment on above: Performed By: #### 2 23331 #### [facility],[address] [place] [address] 11864 Bilirubin [Mass/Vol] 0.8 mg/dL Normal 0.2 - 1.0 [facility] Comment on above: Performed By: #### 2 72894 #### [facility],[address] [place] [address] 66251 Calcium [Mass/Vol] 8.8 mg/dL Normal 8.5 - 10.1 [facility] Comment on above: Performed By: #### 2 58485 #### [facility],[address] [place] [address] 56145 Chloride [Moles/Vol] 96 mmol/L Low 98 - 107 [facility] Comment on above: Performed By: #### 2 38662 #### [facility],[address] [place] [address] 56016 CMP with eGFR Normal [facility] Comment on above: Result Comment: COMP REHENSIVE METABOLIC PANEL Performed By: #### 2 77895 #### [facility],[address] [place] [address] 37663 CO2 [Moles/Vol] 25.6 mmol/L Normal 21.0 - 32.0 [facility] Comment on above: Performed By: #### 2 49083 #### [place] [id number] Creatinine [Mass/Vol] 1.16 mg/dL Normal 0.70 - 1.[address] [facility] Comment on above: Performed By: #### 2 51408 #### [facility],[address] [place] [address] 47919 eGFR 60 ML/MINUTE Normal 60 - 999 [facility] Comment on above: Performed By: #### 2 33236 #### [place] [id number] GFR/1.73 sq M.predicted among non-blacks MDRD (S/P/Bld) [Vol rate/Area] mL/min/{1.73_m2} Normal 60 - 999 [facility] Comment on above: Result Comment: ACCO RDING TO THE NATIONAL KIDNEY DISEASE EDUCATION PROGRAM(NKDE), A NORMAL eGFR IS A VALUE GREATER THAN OR EQUAL TO 60 ML/MIN/1.73 SQ METERS. CHRONIC KIDNEY DISEASE: <60mL/MIN/1.73 SQ METERS KIDNEY FAILURE: <15mL/MIN/1.73 SQ METERS THIS TEST SHOULD ONLY BE USED FOR PATIENTS 18 YEARS OF AGE AND OLDER. Performed By: #### 2 42786 #### [facility],[address] [place] [address] 03695 Globulin (S) [Mass/Vol] 3.3 g/dL Normal 1.5 - 3.8 [facility] Comment on above: Performed By: #### 2 19640 #### [address] [address] Glucose [Mass/Vol] 106 mg/dL Normal 74 - 106 [facility] Comment on above: Performed By: #### 2 06940 #### [facility],[address] [place] [address] Potassium [Moles/Vol] 4.0 mmol/L Normal 3.5 - 5.1 [facility] Comment on above: Performed By: #### 2 19204 #### [facility],[address] [place] [address] Protein [Mass/Vol] 6.2 g/dL Low 6.4 - 8.2 [facility] Comment on above: Performed By: #### 2 48174 #### [facility],[address] [place] [address] Sodium [Moles/Vol] 130 mmol/L Low 136 - 145 [facility] Comment on above: Performed By: #### 2 21694 #### [facility],[address] [place] [address] Urea nitrogen [Mass/Vol] 29 mg/dL High 7 - 18 [facility] Comment on above: Performed By: #### 2 24218 #### [facility],[address] [place] [address] CORONAVIRUS (SARS) ANTIGEN T ESTon 07-25-2025 EXTERNAL QC DONE? YES Normal [facility] Comment on above: Performed By: #### 2 11332 #### [facility],[address] [place] [address] INTERNAL CONTROL PASS Normal [facility] Comment on above: Performed By: #### 2 62160 #### [facility],[address] [place] [address] SARS ANTIGEN Negative Normal NORMAL: NEGATIVE [facility] Comment on above: Performed By: #### 2 73400 #### [facility],[address] [place] [address] SEND TO ? NO Normal [facility] Comment on above: Result Comment: SARS -CoV-2 THIS TEST IS BEING USED UNDER THE FDA EUA PROCEDURE. THIS ASSAY HAS BEEN VALIDATED AT [facility] FOR USE WITH NASAL AND NASOPHARYNGEAL SWAB [...] PUBLIC HEALTH AUTHORITIES. Performed By: #### 2 25521 #### [facility],[address] [place], [place] [id number] CT BRAIN W/O CONTRASTon 11-0 CT BRAIN W/O CONTRAST [address] ? [place], [place] [address] ? Patient: SABIHA WEBBER Phone#: : 1940 Age: 84 Gender: M Pt. Type: ER Account: [id number] Location: 052 Ordering: DR. MADHAVI HARRISONDAJENISE Exam Date: 07/25/2025/9:50 Family Phys: VIRGIE SHAYURSZULA Charge Code: [id number] Physician: [place] Order #: [id number] Dose#: 52.3 mGy PROCEDURE: CT BRAIN WITHOUT CONTRAST COMPARISON: [facility], CT, BRAIN W/O CON, 07/03/2022, 17:58. [...] Zambrano MD on 07/25/2025 at 10:34 Normal [facility] CT CHEST (PE PROTOCOL)on CT CHEST (PE PROTOCOL) [address] ? [place] [address] ? Patient: SABIHA WEBBER Phone#: : 1940 Age: 84 Gender: M Pt. Type: ER Account: [id number] Location: 052 Ordering: DR. MADHAVI SYED Exam Date: 07/25/2025/11:59 Family Phys: VIRGIE GILBERTSTEFFEN Charge Code: [id number] Physician: [place] Order #: [id number] Dose#: 5.3 mGy PROCEDURE: CT CHEST WITH CONTRAST FOR PE COMPARISON: [facility], CT, CHEST W/O CON, 07/25/2025, 9:54. [...] 84 Gender: M Pt. Type: ER Account: [id number] Location: 2 Ordering: DR. MADHAVI SYED Exam Date: 07/25/2025/11:59 Family Phys: VIRGIE GAMBOA Charge Code: [id number] Physician: [place] Order #: [id number] Dose#: 5.3 mGy CONCLUSION: 1. There is [...] Zambrano MD on 07/25/2025 at 12:52 Normal [facility] CT CHEST W/O CONTRASTon 11-0 CT CHEST W/O CONTRAST [address] ? [place] [address] ? Patient: SABIHA WEBBER Phone#: : 1940 Age: 84 Gender: M Pt. Type: ER Account: [id number] Location: [facility] Ordering: DR. MADHAVI SYED Exam Date: 07/25/2025/9:54 Family Phys: VIRGIE GILBERTSTEFFEN Charge Code: [id number] Physician: [place] Order #: [id number] Dose#: 4.1 mGy PROCEDURE: CT CHEST WITHOUT CONTRAST COMPARISON: [facility], CT, CHEST/ABDOMEN/PELVIS W CON, 07/03/2022, 18:13. [...] 84 Gender: M Pt. Type: ER Account: [id number] Location: [facility] Ordering: DR. MADHAVI SYED Exam Date: 07/25/2025/9:54 Family Phys: VIRGIE GAMBOA Charge Code: [id number] Physician: [place] Order #: [id number] Dose#: 4.1 mGy Dictated by: Luly Zambrano MD on 07/25/2025 at 10:35 Approved by: Luly Zambrano MD on 07/25/2025 at 10:44 Normal [facility] D-DIMER, QUANTITATIVEon 11-0 D-DIMER QUANT 1013 ng/ml High 0 - 230 [facility] Comment on above: Performed By: #### 2 89640 ####[facility],[address] [place], [place] [address] D-DIMER, QUANTITATIVE Normal [facility] Comment on above: Result Comment: [place] T D-DIMER Performed By: #### 2 15210 ####[facility],[address] [place], [place] [address] INFLUENZA VIRUS RAPID A/Bon 07-25-2025 INFLUENZA VIRUS [...] TESTS FOR UP TO THREE DAYS. Normal [facility] Comment on above: Performed By: #### 2 24395 ####[facility],[address] [place] [address] 91796 LACTATEon 07-25-2025 Lactate [Moles/Vol] 1.7 mmol/L Normal 0.4 - 2.0 [facility] Comment on above: Performed By: #### 2 55037 #### [facility],[address] [place] [address] 81601 NT-proBNPon 07-25-2025 Natriuretic peptide B (Bld) [Mass/Vol] 316 pg/mL Normal 0 - 450 [facility] Comment on above: Performed By: #### 2 79927 ####[facility],[address] [place] [address] 19210 TROPONINon 07-25-2025 HS TROPONIN 24.5 pg/mL Normal 0.0 - 76.2 [facility] Comment on above: Performed By: #### 2 48891 #### [facility],[address] [place] [address] 02770 URINALYSISon 07-25-2025 Amorphous NONE Normal [facility] Comment on above: Performed By: #### 2 80641 #### [facility],[address] [place] [address] 19733 Bacteria NONE Normal [facility] Comment on above: Performed By: #### 2 72656 #### [facility],[address] [place] [address] 63693 Bilirubin Ql (U) Negative Normal NORMAL: NEGATIVE [facility] Comment on above: Performed By: #### 2 82184 #### [facility],[address] [place] [address] 84165 Casts NONE Normal [facility] Comment on above: Performed By: #### 2 31831 #### [facility],[address] [place] [address] Clarity (U) clear Normal NORMAL: CLEAR [facility] Comment on above: Performed By: #### 2 45465 #### [facility],[address] [place], [place] [address] Color (U) yellow Normal NORMAL: YELLOW [facility] Comment on above: Performed By: #### 2 66212 #### [facility],[address] [place], [place] [address] Crystals LM Nom (Urine sed) NONE Normal [facility] Comment on above: Performed By: #### 2 95817 #### [facility],[address] [place] [address] Epi Cells NONE Normal [facility] Comment on above: Performed By: #### 2 72032 #### [facility],[address] [place], [place] [address] Glucose Ql (U) NORM Normal NORMAL: NORMAL [facility] Comment on above: Performed By: #### 2 59354 #### [facility],[address] [place] [address] 96131 Hemoglobin Ql (U) 10 Abnormal NORMAL: NEGATIVE [facility] Comment on above: Performed By: #### 2 21799 #### [facility],[address] [place] [address] 60143 Ketone Negative Normal NORMAL: NEGATIVE [facility] Comment on above: Performed By: #### 2 73683 #### [facility],[address] [place] [address] 53381 Leukocytes Negative Normal NORMAL: NEGATIVE [facility] Comment on above: Performed By: #### 2 92584 #### [facility],[address] [place] [address] 60864 Mucous NONE Normal [facility] Comment on above: Performed By: #### 2 08917 #### [facility],[address] [place] [address] 74159 Nitrite Ql (U) Negative Normal NORMAL: NEGATIVE [facility] Comment on above: Performed By: #### 2 07183 #### [facility],[address] [place] [address] pH (U) 5 [pH] Normal NORMAL: 5.0-8.0 [facility] Comment on above: Performed By: #### 2 84517 #### [facility],[address] [place] [address] Protein Ql (U) 30 Abnormal NORMAL: NEGATIVE [facility] Comment on above: Performed By: #### 2 70054 #### [facility],[address] [place] [address] Rbc 0-5 Normal 0-3/hpf [facility] Comment on above: Performed By: #### 2 97453 #### [facility],[address] [place] [address] Sp [place] 1.015 Normal NORMAL: 1.010-1.030 [facility] Comment on above: Performed By: #### 2 37657 #### [facility],[address] [place] [address] Specimen Type R Normal [facility] Comment on above: Performed By: #### 2 88975 #### [facility],[address] [place] [address] Urinalysis dipstick W Reflex Microscopic panel (U) SEE BELOW Normal [facility] Comment on above: Result Comment: MICR OSCOPIC Performed By: #### 2 90907 #### [facility],[address] [place] [address] Urobilinog NORM Normal NORMAL: NORMAL [facility] Comment on above: Performed By: #### 2 59405 #### [facility],[address] [place] [address] Wbc NONE Normal 0-5/hpf [facility] Comment on above: Performed By: #### 2 05699 #### [facility],[address] [place] [address] 88905 Yeast NONE Normal [facility] Comment on above: Performed By: #### 2 52708 #### [facility],[address] [place], [place] [address] CBC + DIFFon 07-01-2025 Baso # 0.02 x10EE3/UL Normal 0.00 - 0.10 [facility] Comment on above: Performed By: #### 2 21876 #### [facility],[address] [place] [address] 31210 Basophils/100 WBC (Bld) 0.3 % Normal 0.0 - 2.0 [facility] Comment on above: Performed By: #### 2 63067 #### [facility],[address] [place] [address] CBC + DIFF Normal [facility] Comment on above: Result Comment: CBC- COMPLETE BLOOD COUNT Performed By: #### 2 91079 #### [facility],[address] [place] [address] EO # 0.06 x10EE3/UL Normal 0.00 - 0.50 [facility] Comment on above: Performed By: #### 2 39669 #### [facility],[address] [place], [place] [address] Eosinophils/100 WBC (Bld) 0.8 % Normal 0.0 - 7.0 [facility] Comment on above: Performed By: #### 2 01918 #### [facility],[address] [place] [address] Erythrocyte distribution width (RBC) [Ratio] 13.1 % Normal 12.0 - 15.6 [facility] Comment on above: Performed By: #### 2 33395 #### [facility],[address] [place] [address] Hematocrit (Bld) [Volume fraction] 43.0 % Normal 40.0 - 52.0 [facility] Comment on above: Performed By: #### 2 62269 #### [facility],[address] [place] [address] 91143 Hemoglobin (Bld) [Mass/Vol] 14.5 g/dL Normal 13.0 - 17.5 [facility] Comment on above: Performed By: #### 2 83875 #### [facility],[address] [place] [address] 44951 Lymph # 0.74 x10EE3/UL Low 0.80 - 2.80 [facility] Comment on above: Performed By: #### 2 64192 #### [facility],[address] [place] [address] 63092 Lymphocytes/100 WBC (Bld) 9.2 % Low 20.0 - 45.0 [facility] Comment on above: Performed By: #### 2 64755 #### [facility],[address] [place] [address] 53991 MANUAL DIFF N/A Normal [facility] Comment on above: Performed By: #### 2 82969 #### [facility],[address] [place] [address] 16371 MCH (RBC) [Entitic mass] 34 pg High 27 - 33 [facility] Comment on above: Performed By: #### 2 85149 #### [facility],[address] [place] [address] 97926 MCHC 34 X10 3 Normal 32 - 36 [facility] Comment on above: Performed By: #### 2 90872 #### [facility],[address] [place] [address] 07410 MCV (RBC) [Entitic vol] 100 fL High 81 - 98 [facility] Comment on above: Performed By: #### 2 14734 #### [facility],[address] [place] [address] 36046 [place] # 0.68 x10EE3/UL Normal 0.20 - 1.00 [facility] Comment on above: Performed By: #### 2 56249 #### [facility],[address] [place] [address] 35105 MONOS % 8.4 % Normal 0.0 - 10.0 [facility] Comment on above: Performed By: #### 2 70903 #### [facility],[address] [place] [address] 03617 Morphology Yao (Bld) [Interp] N/A Normal [facility] Comment on above: Performed By: #### 2 87931 #### [facility],[address] [place] [address] 22158 Neut # 6.57 x10EE3/UL Normal 1.50 - 7.10 [facility] Comment on above: Performed By: #### 2 55268 #### [facility],[address] [place] [address] 56198 Neutrophils/100 WBC (Bld) 81.4 % High 46.0 - 76.0 [facility] Comment on above: Performed By: #### 2 12021 #### [facility],[address] [place] [address] 41163 PLATELET 168 x10EE3/UL Normal 150 - 450 [facility] Comment on above: Performed By: #### 2 18656 #### [facility],[address] [place] [address] 77685 Platelet mean volume (Bld) [Entitic vol] 8.7 fL Normal 6.4 - 10.5 [facility] Comment on above: Result Comment: AUTO MATED DIFFERENTIAL Performed By: #### 2 91701 #### [facility],[address] [place] [address] 33490 RBC 4.29 x 10EE6/UL Low 4.50 - 6.00 [facility] Comment on above: Performed By: #### 2 27924 #### [facility],[address] [place] [address] 33093 WBC 8.1 x 10EE3/UL Normal 4.5 - 10.8 [facility] Comment on above: Performed By: #### 2 97368 #### [facility],[address] [place] [address] 91510 CMP with eGFRon 07-01-2025 AGE 84 years Normal [facility] Comment on above: Performed By: #### 2 74300 ####[facility],[address] [place] [address] 97576 Albumin [Mass/Vol] 3.3 g/dL Low 3.4 - 5.0 [facility] Comment on above: Performed By: #### 2 11902 ####[facility],[address] [place] [address] 85388 Albumin/Globulin [Mass ratio] 1.1 {ratio} Normal 0.9 - 1.6 [facility] Comment on above: Performed By: #### 2 23188 ####[facility],[address] [place] [address] 59514 ALK PHOS 119 U/L High 46 - 116 [facility] Comment on above: Performed By: #### 2 84177 ####[facility],[address] [place] [address] 04781 ALT [Catalytic activity/Vol] 26 U/L Normal 16 - 63 [facility] Comment on above: Performed By: #### 2 04568 ####[facility],[address] [place] [address] 27453 Anion gap [Moles/Vol] 9 mmol/L Low 10 - 20 [facility] Comment on above: Performed By: #### 2 85459 ####[facility],[address] [place] [address] 15975 AST [Catalytic activity/Vol] 20 U/L Normal 15 - 37 [facility] Comment on above: Performed By: #### 2 49486 ####[facility],[address] [place] [address] 89673 B/C RATIO 24 ratio Normal 0 - 30 [facility] Comment on above: Performed By: #### 2 39297 ####[facility],[address] [place] [address] 02177 Bilirubin [Mass/Vol] 0.8 mg/dL Normal 0.2 - 1.0 [facility] Comment on above: Performed By: #### 2 93080 ####[facility],[address] [place] [address] 31725 Calcium [Mass/Vol] 9.1 mg/dL Normal 8.5 - 10.1 [facility] Comment on above: Performed By: #### 2 59413 ####[facility],[address] [place] [address] 21940 Chloride [Moles/Vol] 106 mmol/L Normal 98 - 107 [facility] Comment on above: Performed By: #### 2 81584 ####[facility],[address] [place], [place] [address] CMP with eGFR Normal [facility] Comment on above: Result Comment: COMP REHENSIVE METABOLIC PANEL Performed By: #### 2 01854 ####[facility],[address] [place] [address] 95014 CO2 [Moles/Vol] 29.2 mmol/L Normal 21.0 - 32.0 [facility] Comment on above: Performed By: #### 2 60736 ####[facility],[address] [place] [address] 48048 Creatinine [Mass/Vol] 0.87 mg/dL Normal 0.70 - 1.[address] [facility] Comment on above: Performed By: #### 2 22802 ####[facility],[address] [place] [address] 84475 GFR/1.73 sq M.predicted among non-blacks MDRD (S/P/Bld) [Vol rate/Area] mL/min/{1.73_m2} Normal 60 - 999 [facility] Comment on above: Performed By: #### 2 99665 ####[facility],[address] [place] [address] Result Comment: ACCO RDING TO THE NATIONAL KIDNEY DISEASE EDUCATION PROGRAM(NKDE), A NORMAL eGFR IS A VALUE GREATER THAN OR EQUAL TO 60 ML/MIN/1.73 SQ METERS. CHRONIC KIDNEY DISEASE: <60mL/MIN/1.73 SQ METERS KIDNEY FAILURE: <15mL/MIN/1.73 SQ METERS THIS TEST SHOULD ONLY BE USED FOR PATIENTS 18 YEARS OF AGE AND OLDER. Globulin (S) [Mass/Vol] 3.1 g/dL Normal 1.5 - 3.8 [facility] Comment on above: Performed By: #### 2 24640 ####[place] [address] Glucose [Mass/Vol] 92 mg/dL Normal 74 - 106 [facility] Comment on above: Performed By: #### 2 00983 ####[facility],[address] [place] [address] Potassium [Moles/Vol] 4.6 mmol/L Normal 3.5 - 5.1 [facility] Comment on above: Performed By: #### 2 73936 ####[facility],[address] [place], [place] [address] Protein [Mass/Vol] 6.4 g/dL Normal 6.4 - 8.2 [facility] Comment on above: Performed By: #### 2 58864 ####[facility],[address] [place] [address] 74727 Sodium [Moles/Vol] 140 mmol/L Normal 136 - 145 [facility] Comment on above: Performed By: #### 2 12221 ####[address] [address] Urea nitrogen [Mass/Vol] 21 mg/dL High 7 - 18 [facility] Comment on above: Performed By: #### 2 73182 ####[facility],[address] [place] [address] 24498 LIPID PROFILEon 07-01-2025 Cholesterol [Mass/Vol] 104 mg/dL Normal 0 - [address] [facility] Comment on above: Performed By: #### 2 20774 ####[facility],[address] [place] [address] 24146 Cholesterol in HDL [Mass/Vol] 60 mg/dL Normal 40 - 60 [facility] Comment on above: Performed By: #### 2 37030 ####[facility],[address] [place] [address] 25388 Cholesterol in LDL [Mass/Vol] 40 mg/dL Normal 0 - 129 [facility] Comment on above: Performed By: #### 2 73844 ####[facility],[address] [place] [address] 29790 Cholesterol.total/Beatrice sterol in HDL [Mass ratio] 1.7 {ratio} Normal 0.0 - 5.0 [facility] Comment on above: Performed By: #### 2 10696 ####[facility],[address] [place] [address] 24582 Lipid 1996 panel Normal [facility] Comment on above: Result Comment: LIPI D PROFILE Performed By: #### 2 11580 ####[facility],[address] [place] [address] 37968 Triglyceride [Mass/Vol] 22 mg/dL Normal 0 - 150 [facility] Comment on above: Performed By: #### 2 26586 ####[facility],[address] [place] [address] 38268 MR/BMS.Ancelmo 06-09-2025 MR/BMS.[facility] Vascular Surgery [address] [place] [address]. [address] [place] [address] 316671 OFFICE VISIT Date of Service: 06/09/25 MR#: [id number] Acct: [id number] Name: SABIHA WEBBER Rep #: [id number] : 1940 Provider: Dr. Blake Gonzalez MD Age/Sex: 84/M Location: [facility] Status: Signed Intake Vital Signs 06/09/25 16:10 [...] nose nor (more content not included)... Normal [facility] Carotid Duplex Ultrasoundon 04-26-2025 Carotid Duplex Ultrasound [facility] [place] [address] [place] [address] Carotid Duplex Ultrasound 04/26/25 1255 MR#: [id number] Acct: [id number] Name: SABIHA WEBBER Rep #: [id number] : 1940 84 From: Blake Gonzalez MD [...] the left vertebral artery. Procedure Carotid Duplex 90327. This is a Carotid Duplex examination using [...] Dictated: 04/26/25 1255 Date Transcribed: 04/26/25 1608 Claims Correspondence Clerk: Signed Normal [facility] Duplex ultrasound of carotid artery reportOrdered By: Blake Gonzalez on 04-26-2025 Study report [facility] [address] [place] [address] Carotid Duplex Ultrasound 04/26/25 1255 MR#: [id number] Acct: [id number] Name: SABIHA WEBBER Rep #:[id number] : 1940 84 From: Blake Lynn Attending Dr: TATY Maciel Stat us: REG CLI Ordering Dr: Reanna Diaz Date: Location: [facility] Sex: M C Admitted: Reason For [...] the left vertebral artery. Procedure Carotid Duplex 61386. This is a Carotid Duplex examination using [...] Date Dictated: 04/26/25 125 Date Transcribed: 04/26/251607 Claims Correspondence Clerk: Signed [facility] Work Phone: CBC + DIFFon 04-08-2025 Baso # 0.02 x10EE3/UL Normal 0.00 - 0.10 [facility] Comment on above: Performed By: #### 2 56901 #### [address] [address] Basophils/100 WBC (Bld) 0.3 % Normal 0.0 - 2.0 [facility] Comment on above: Performed By: #### 2 70643 #### [facility],[address] [place] [address] 04305 CBC + DIFF Normal [facility] Comment on above: Result Comment: CBC- COMPLETE BLOOD COUNT Performed By: #### 2 46419 #### [facility],[address] [place] [address] 65960 EO # 0.07 x10EE3/UL Normal 0.00 - 0.50 [facility] Comment on above: Performed By: #### 2 79444 #### [facility],[address] [place] [address] 99079 Eosinophils/100 WBC (Bld) 1.2 % Normal 0.0 - 7.0 [facility] Comment on above: Performed By: #### 2 35267 #### [facility],[address] [place] [address] Erythrocyte distribution width (RBC) [Ratio] 13.5 % Normal 12.0 - 15.6 [facility] Comment on above: Performed By: #### 2 48197 #### [facility],[address] [place] [address] Hematocrit (Bld) [Volume fraction] 41.4 % Normal 40.0 - 52.0 [facility] Comment on above: Performed By: #### 2 01051 #### [facility],[address] [place] [address] Hemoglobin (Bld) [Mass/Vol] 14.4 g/dL Normal 13.0 - 17.5 [facility] Comment on above: Performed By: #### 2 58655 #### [facility],[address] [place] [address] Lymph # 1.04 x10EE3/UL Normal 0.80 - 2.80 [facility] Comment on above: Performed By: #### 2 51604 #### [facility],[address] [place], [place] [address] Lymphocytes/100 WBC (Bld) 16.9 % Low 20.0 - 45.0 [facility] Comment on above: Performed By: #### 2 86457 #### [facility],[address] [place], [place] [address] MANUAL DIFF N/A Normal [facility] Comment on above: Performed By: #### 2 95215 #### [place] [id number] MCH (RBC) [Entitic mass] 35 pg High 27 - 33 [facility] Comment on above: Performed By: #### 2 72774 #### [place] [address] MCHC 35 X10 3 Normal 32 - 36 [facility] Comment on above: Performed By: #### 2 65465 #### [facility],[address] [place] [address] 44463 MCV (RBC) [Entitic vol] 100 fL High 81 - 98 J l [facility] Comment on above: Performed By: #### 2 19247 #### [facility],[address] [place] [address] 55744 [place] # 0.66 x10EE3/UL Normal 0.20 - 1.00 [facility] Comment on above: Performed By: #### 2 76034 #### [facility],[address] [place] [address] 43660 MONOS % 10.8 % High 0.0 - 10.0 [facility] Comment on above: Performed By: #### 2 66448 #### [facility],[address] [place], [place] [address] Morphology Yao (Bld) [Interp] N/A Normal [facility] Comment on above: Performed By: #### 2 24381 #### [facility],[address] [place] [address] 32035 Neut # 4.36 x10EE3/UL Normal 1.50 - 7.10 [facility] Comment on above: Performed By: #### 2 89027 #### [facility],[address] [place] [address] 46487 Neutrophils/100 WBC (Bld) 70.8 % Normal 46.0 - 76.0 [facility] Comment on above: Performed By: #### 2 57204 #### [facility],[address] [place] [address] 30777 PLATELET 186 x10EE3/UL Normal 150 - 450 [facility] Comment on above: Performed By: #### 2 89995 #### [facility],[address] [place] [address] 78580 Platelet mean volume (Bld) [Entitic vol] 9.1 fL Normal 6.4 - 10.5 [facility] Comment on above: Result Comment: AUTO MATED DIFFERENTIAL Performed By: #### 2 59716 #### [facility],[address] [place] [address] 74998 RBC 4.14 x 10EE6/UL Low 4.50 - 6.00 [facility] Comment on above: Performed By: #### 2 97001 #### [facility],[address] [place] [address] 28809 WBC 6.2 x 10EE3/UL Normal 4.5 - 10.8 [facility] Comment on above: Performed By: #### 2 34597 #### [facility],[address] [place] [address] 65662 CMP with eGFRon 04-08-2025 AGE 84 years Normal [facility] Comment on above: Performed By: #### 2 97493 ####[facility],[address] [place] [address] 43231 Albumin [Mass/Vol] 3.5 g/dL Normal 3.4 - 5.0 [facility] Comment on above: Performed By: #### 2 13130 ####[facility],[address] [place] [address] 73642 Albumin/Globulin [Mass ratio] 1.0 {ratio} Normal 0.9 - 1.6 [facility] Comment on above: Performed By: #### 2 15683 ####[facility],[address] [place] [address] 44429 ALK PHOS 118 U/L High 46 - 116 [facility] Comment on above: Performed By: #### 2 82273 ####[facility],[address] [place] [address] 90709 ALT [Catalytic activity/Vol] 42 U/L Normal 16 - 63 [facility] Comment on above: Performed By: #### 2 82367 ####[facility],[address] [place] [address] 04809 Anion gap [Moles/Vol] 11 mmol/L Normal 10 - 20 [facility] Comment on above: Performed By: #### 2 95631 ####[facility],[address] [place] [address] 26786 AST [Catalytic activity/Vol] 25 U/L Normal 15 - 37 [facility] Comment on above: Performed By: #### 2 95197 ####[facility],[address] [place] [address] 00228 B/C RATIO 30 ratio Normal 0 - 30 [facility] Comment on above: Performed By: #### 2 31811 ####[facility],[address] [place] [address] 66794 Bilirubin [Mass/Vol] 0.7 mg/dL Normal 0.2 - 1.0 [facility] Comment on above: Performed By: #### 2 33349 ####[facility],[address] [place] [address] 31712 Calcium [Mass/Vol] 9.1 mg/dL Normal 8.5 - 10.1 [facility] Comment on above: Performed By: #### 2 60226 ####[facility],[address] [place] [address] 28478 Chloride [Moles/Vol] 108 mmol/L High 98 - 107 [facility] Comment on above: Performed By: #### 2 71881 ####[facility],[address] [place] [address] 95983 CMP with eGFR Normal [facility] Comment on above: Result Comment: COMP REHENSIVE METABOLIC PANEL Performed By: #### 2 98069 ####[facility],[address] [place] [address] 39033 CO2 [Moles/Vol] 27.3 mmol/L Normal 21.0 - 32.0 [facility] Comment on above: Performed By: #### 2 54906 ####[facility],[address] [place] [address] 85927 Creatinine [Mass/Vol] 1.23 mg/dL Normal 0.70 - 1.[address] [facility] Comment on above: Performed By: #### 2 03877 ####[facility],[address] [place] [address] 53964 eGFR 56 ML/MINUTE Low 60 - 999 [facility] Comment on above: Performed By: #### 2 27689 ####[facility],[address] [place] [address] 20801 GFR/1.73 sq M.predicted among non-blacks MDRD (S/P/Bld) [Vol rate/Area] mL/min/{1.73_m2} Normal 60 - 999 [facility] Comment on above: Result Comment: ACCO RDING TO THE NATIONAL KIDNEY DISEASE EDUCATION PROGRAM(NKDE), A NORMAL eGFR IS A VALUE GREATER THAN OR EQUAL TO 60 ML/MIN/1.73 SQ METERS. CHRONIC KIDNEY DISEASE: <60mL/MIN/1.73 SQ METERS KIDNEY FAILURE: <15mL/MIN/1.73 SQ METERS THIS TEST SHOULD ONLY BE USED FOR PATIENTS 18 YEARS OF AGE AND OLDER. Performed By: #### 2 41300 ####[facility],[address] [place] [address] 09233 Globulin (S) [Mass/Vol] 3.6 g/dL Normal 1.5 - 3.8 [facility] Comment on above: Performed By: #### 2 78033 ####[facility],[address] [place] [address] 66936 Glucose [Mass/Vol] 90 mg/dL Normal 74 - 106 [facility] Comment on above: Performed By: #### 2 22427 ####[facility],[address] [place] [address] 77371 Potassium [Moles/Vol] 4.6 mmol/L Normal 3.5 - 5.1 [facility] Comment on above: Performed By: #### 2 18762 ####[facility],[address] [place] [address] 21470 Protein [Mass/Vol] 7.1 g/dL Normal 6.4 - 8.2 [facility] Comment on above: Performed By: #### 2 69476 ####[facility],[address] [place] [address] 04842 Sodium [Moles/Vol] 142 mmol/L Normal 136 - 145 [facility] Comment on above: Performed By: #### 2 20765 ####[facility],[address] [place] [address] 76524 Urea nitrogen [Mass/Vol] 37 mg/dL High 7 - 18 [facility] Comment on above: Performed By: #### 2 07742 ####[facility],[address] [place] [address] 37277 CBC + DIFFon 01-13-2025 Baso # 0.01 x10EE3/UL Normal 0.00 - 0.10 [facility] Comment on above: Performed By: #### 2 79298 ####[facility],[address] [place] [address] 94432 Basophils/100 WBC (Bld) 0.1 % Normal 0.0 - 2.0 [facility] Comment on above: Performed By: #### 2 37523 ####[facility],[address] [place] [address] 61550 CBC + DIFF Normal [facility] Comment on above: Result Comment: CBC- COMPLETE BLOOD COUNT Performed By: #### 2 30931 ####[facility],[address] [place] [address] 50562 EO # 0.03 x10EE3/UL Normal 0.00 - 0.50 [facility] Comment on above: Performed By: #### 2 11003 ####[facility],[address] [place] [address] 15881 Eosinophils/100 WBC (Bld) 0.5 % Normal 0.0 - 7.0 [facility] Comment on above: Performed By: #### 2 36383 ####[facility],[address] [place] [address] Erythrocyte distribution width (RBC) [Ratio] 13.1 % Normal 12.0 - 15.6 [facility] Comment on above: Performed By: #### 2 15808 ####[facility],[address] [place] [address] Hematocrit (Bld) [Volume fraction] 43.0 % Normal 40.0 - 52.0 [facility] Comment on above: Performed By: #### 2 08578 ####[facility],[address] [place] [address] Hemoglobin (Bld) [Mass/Vol] 14.5 g/dL Normal 13.0 - 17.5 [facility] Comment on above: Performed By: #### 2 92835 ####[place] [address] Lymph # 0.87 x10EE3/UL Normal 0.80 - 2.80 [facility] Comment on above: Performed By: #### 2 07699 ####[place] [address] Lymphocytes/100 WBC (Bld) 15.4 % Low 20.0 - 45.0 [facility] Comment on above: Performed By: #### 2 07685 ####[place] [id number] MANUAL DIFF N/A Normal [facility] Comment on above: Performed By: #### 2 03999 ####[place] [id number] MCH (RBC) [Entitic mass] 35 pg High 27 - 33 [facility] Comment on above: Performed By: #### 2 44050 ####[place] [address] MCHC 34 X10 3 Normal 32 - 36 [facility] Comment on above: Performed By: #### 2 60078 ####[facility],[address] [place] [address] 70433 MCV (RBC) [Entitic vol] 103 fL High 81 - 98 J [facility] Comment on above: Performed By: #### 2 64162 ####[facility],[address] [place] [address] 36258 [place] # 0.36 x10EE3/UL Normal 0.20 - 1.00 [facility] Comment on above: Performed By: #### 2 46187 ####[facility],[address] [place] [address] 25822 MONOS % 6.3 % Normal 0.0 - 10.0 [facility] Comment on above: Performed By: #### 2 00105 ####[facility],[address] [place], [place] [address] Morphology Yao (Bld) [Interp] N/A Normal [facility] Comment on above: Performed By: #### 2 85600 ####[facility],[address] [place], [place] [address] Neut # 4.41 x10EE3/UL Normal 1.50 - 7.10 [facility] Comment on above: Performed By: #### 2 65033 ####[facility],[address] [place] [address] 13296 Neutrophils/100 WBC (Bld) 77.7 % High 46.0 - 76.0 [facility] Comment on above: Performed By: #### 2 89079 ####[facility],[address] [place] [address] 23727 PLATELET 214 x10EE3/UL Normal 150 - 450 [facility] Comment on above: Performed By: #### 2 05187 ####[facility],[address] [place] [address] 94350 Platelet mean volume (Bld) [Entitic vol] 9.1 fL Normal 6.4 - 10.5 [facility] Comment on above: Result Comment: AUTO MATED DIFFERENTIAL Performed By: #### 2 37424 ####[facility],[address] [place] [address] 56027 RBC 4.19 x 10EE6/UL Low 4.50 - 6.00 [facility] Comment on above: Performed By: #### 2 21314 ####[facility],[address] [place] [address] 91799 WBC 5.7 x 10EE3/UL Normal 4.5 - 10.8 [facility] Comment on above: Performed By: #### 2 67042 ####[facility],[address] [place] [address] 79835 CMP with eGFRon 01-13-2025 AGE 84 years Normal [facility] Comment on above: Performed By: #### 2 66991 ####[facility],[address] [place] [address] 29191 Albumin [Mass/Vol] 3.6 g/dL Normal 3.4 - 5.0 [facility] Comment on above: Performed By: #### 2 99617 ####[facility],[address] [place] [address] 81916 Albumin/Globulin [Mass ratio] 1.0 {ratio} Normal 0.9 - 1.6 [facility] Comment on above: Performed By: #### 2 09275 ####[facility],[address] [place] [address] 85446 ALK PHOS 112 U/L Normal 46 - 116 [facility] Comment on above: Performed By: #### 2 18038 ####[facility],[address] [place] [address] 65550 ALT [Catalytic activity/Vol] 30 U/L Normal 16 - 63 [facility] Comment on above: Performed By: #### 2 69841 ####[facility],[address] [place] [address] 55446 Anion gap [Moles/Vol] 13 mmol/L Normal 10 - 20 [facility] Comment on above: Performed By: #### 2 20758 ####[facility],[address] [place] [address] 10021 AST [Catalytic activity/Vol] 22 U/L Normal 15 - 37 [facility] Comment on above: Performed By: #### 2 38262 ####[facility],[address] [place] [address] 01933 B/C RATIO 26 ratio Normal 0 - 30 [facility] Comment on above: Performed By: #### 2 57502 ####[facility],[address] [place] [address] 64073 Bilirubin [Mass/Vol] 0.7 mg/dL Normal 0.2 - 1.0 [facility] Comment on above: Performed By: #### 2 68357 ####[facility],[address] [place], [place] [address] Calcium [Mass/Vol] 9.6 mg/dL Normal 8.5 - 10.1 [facility] Comment on above: Performed By: #### 2 41815 ####[facility],[address] [place] [address] 21061 Chloride [Moles/Vol] 107 mmol/L Normal 98 - 107 [facility] Comment on above: Performed By: #### 2 33428 ####[facility],[address] [place] [address] 83589 CMP with eGFR Normal [facility] Comment on above: Result Comment: COMP REHENSIVE METABOLIC PANEL Performed By: #### 2 89284 ####[facility],[address] [place] [address] 16793 CO2 [Moles/Vol] 27.8 mmol/L Normal 21.0 - 32.0 [facility] Comment on above: Performed By: #### 2 60342 ####[facility],[address] [place] [address] 42660 Creatinine [Mass/Vol] 1.09 mg/dL Normal 0.70 - 1.[address] [facility] Comment on above: Performed By: #### 2 19534 ####[facility],[address] [place] [address] 34766 GFR/1.73 sq M.predicted among non-blacks MDRD (S/P/Bld) [Vol rate/Area] mL/min/{1.73_m2} Normal 60 - 999 [facility] Comment on above: Performed By: #### 2 55039 ####[facility],[address] [place] [address] Result Comment: ACCO RDING TO THE NATIONAL KIDNEY DISEASE EDUCATION PROGRAM(NKDE), A NORMAL eGFR IS A VALUE GREATER THAN OR EQUAL TO 60 ML/MIN/1.73 SQ METERS. CHRONIC KIDNEY DISEASE: <60mL/MIN/1.73 SQ METERS KIDNEY FAILURE: <15mL/MIN/1.73 SQ METERS THIS TEST SHOULD ONLY BE USED FOR PATIENTS 18 YEARS OF AGE AND OLDER. Globulin (S) [Mass/Vol] 3.5 g/dL Normal 1.5 - 3.8 [facility] Comment on above: Performed By: #### 2 90979 ####[facility],[address] [place] [address] 64106 Glucose [Mass/Vol] 151 mg/dL High 74 - 106 [facility] [facility] Comment on above: Performed By: #### 2 81789 ####[facility],[address] [place] [address] 94073 Potassium [Moles/Vol] 4.3 mmol/L Normal 3.5 - 5.1 [facility] Comment on above: Performed By: #### 2 81305 ####[facility],[address] [place] [address] 49222 Protein [Mass/Vol] 7.1 g/dL Normal 6.4 - 8.2 [facility] Comment on above: Performed By: #### 2 16673 ####[facility],[address] [place] [address] 78635 Sodium [Moles/Vol] 143 mmol/L Normal 136 - 145 [facility] Comment on above: Performed By: #### 2 06389 ####[facility],[address] [place] [address] 61626 Urea nitrogen [Mass/Vol] 28 mg/dL High 7 - 18 [facility] Comment on above: Performed By: #### 2 12295 ####[facility],[address] [place] [address] 82651 T4, FREE [CCL]on 12-18-2024 Free T4 [Mass/Vol] 1.2 ng/dL Normal 0.9-1.7 [facility] Comment on above: Result Comment: [place] [address] Wojciech Fuentes III, M.D. [id number] Performed By: #### 2 63097 #### [facility],[address] [place] [address] 26148 CBC + DIFFon 12-17-2024 Baso # 0.02 x10EE3/UL Normal 0.00 - 0.10 [facility] Comment on above: Performed By: #### 2 88605 #### [facility],[address] [place] [address] 44404 Basophils/100 WBC (Bld) 0.3 % Normal 0.0 - 2.0 [facility] Comment on above: Performed By: #### 2 83832 #### [facility],[address] [place] [address] 73731 CBC + DIFF Normal [facility] Comment on above: Result Comment: CBC- COMPLETE BLOOD COUNT Performed By: #### 2 84113 #### [facility],[address] [place] [address] 18818 EO # 0.02 x10EE3/UL Normal 0.00 - 0.50 [facility] Comment on above: Performed By: #### 2 81576 #### [place] [address] Eosinophils/100 WBC (Bld) 0.3 % Normal 0.0 - 7.0 [facility] Comment on above: Performed By: #### 2 37347 #### [facility],[address] [place] [address] Erythrocyte distribution width (RBC) [Ratio] 12.7 % Normal 12.0 - 15.6 [facility] Comment on above: Performed By: #### 2 18363 #### [place] [address] Hematocrit (Bld) [Volume fraction] 42.0 % Normal 40.0 - 52.0 [facility] Comment on above: Performed By: #### 2 97608 #### [place] [address] Hemoglobin (Bld) [Mass/Vol] 13.9 g/dL Normal 13.0 - 17.5 [facility] Comment on above: Performed By: #### 2 90989 #### [facility],[address] [place] [address] Lymph # 0.98 x10EE3/UL Normal 0.80 - 2.80 [facility] Comment on above: Performed By: #### 2 08758 #### [place] [id number] Lymphocytes/100 WBC (Bld) 16.9 % Low 20.0 - 45.0 [facility] Comment on above: Performed By: #### 2 47598 #### [place] [address] MANUAL DIFF N/A Normal [facility] Comment on above: Performed By: #### 2 73356 #### [place] [address] MCH (RBC) [Entitic mass] 34 pg High 27 - 33 [facility] Comment on above: Performed By: #### 2 81816 #### [address] [address] MCHC 33 X10 3 Normal 32 - 36 [facility] Comment on above: Performed By: #### 2 09916 #### [facility],[address] [place] [address] 35669 MCV (RBC) [Entitic vol] 102 fL High 81 - 98 [facility] Comment on above: Performed By: #### 2 67024 #### [facility],[address] [place] [address] 20778 [place] # 0.65 x10EE3/UL Normal 0.20 - 1.00 [facility] Comment on above: Performed By: #### 2 15630 #### [facility],[address] [place] [address] 06969 MONOS % 11.3 % High 0.0 - 10.0 [facility] Comment on above: Performed By: #### 2 70769 #### [facility],[address] [place] [address] 87428 Morphology Yao (Bld) [Interp] N/A Normal [facility] Comment on above: Performed By: #### 2 31346 #### [facility],[address] [place] [address] 81516 Neut # 4.10 x10EE3/UL Normal 1.50 - 7.10 [facility] Comment on above: Performed By: #### 2 82604 #### [address] [address] Neutrophils/100 WBC (Bld) 71.1 % Normal 46.0 - 76.0 [facility] Comment on above: Performed By: #### 2 00246 #### [place] [id number] PLATELET 190 x10EE3/UL Normal 150 - 450 [facility] Comment on above: Performed By: #### 2 27316 #### [facility],[address] [place] [address] 67018 Platelet mean volume (Bld) [Entitic vol] 8.7 fL Normal 6.4 - 10.5 [facility] Comment on above: Result Comment: AUTO MATED DIFFERENTIAL Performed By: #### 2 89328 #### [facility],[address] [place] [address] RBC 4.12 x 10EE6/UL Low 4.50 - 6.00 [facility] Comment on above: Performed By: #### 2 26791 #### [facility],[address] [place] [address] 30573 WBC 5.8 x 10EE3/UL Normal 4.5 - 10.8 [facility] Comment on above: Performed By: #### 2 62978 #### [facility],[address] [place] [address] 65321 CMP with eGFRon 12-17-2024 AGE 84 years Normal [facility] Comment on above: Performed By: #### 2 49299 ####[facility],[address] [place] [address] 92573 Albumin [Mass/Vol] 3.5 g/dL Normal 3.4 - 5.0 [facility] Comment on above: Performed By: #### 2 80537 ####[facility],[address] [place] [address] 73119 Albumin/Globulin [Mass ratio] 1.0 {ratio} Normal 0.9 - 1.6 [facility] Comment on above: Performed By: #### 2 61260 ####[facility],[address] [place] [address] 82862 ALK PHOS 117 U/L High 46 - 116 [facility] Comment on above: Performed By: #### 2 55165 ####[facility],[address] [place] [address] 89056 ALT [Catalytic activity/Vol] 28 U/L Normal 16 - 63 [facility] Comment on above: Performed By: #### 2 70265 ####[facility],[address] [place] [address] 50768 Anion gap [Moles/Vol] 11 mmol/L Normal 10 - 20 [facility] Comment on above: Performed By: #### 2 59360 ####[facility],[address] [place] [address] 89727 AST [Catalytic activity/Vol] 17 U/L Normal 15 - 37 [facility] Comment on above: Performed By: #### 2 95627 ####[facility],[address] [place] [address] 48305 B/C RATIO 22 ratio Normal 0 - 30 [facility] Comment on above: Performed By: #### 2 93754 ####[facility],[address] [place] [address] 19873 Bilirubin [Mass/Vol] 0.7 mg/dL Normal 0.2 - 1.0 [facility] Comment on above: Performed By: #### 2 71813 ####[facility],[address] [place] [address] 09481 Calcium [Mass/Vol] 9.0 mg/dL Normal 8.5 - 10.1 [facility] Comment on above: Performed By: #### 2 57561 ####[facility],[address] [place] [address] 53039 Chloride [Moles/Vol] 106 mmol/L Normal 98 - 107 [facility] Comment on above: Performed By: #### 2 66001 ####[facility],[address] [place] [address] 03324 CMP with eGFR Normal [facility] Comment on above: Result Comment: COMP REHENSIVE METABOLIC PANEL Performed By: #### 2 94547 ####[facility],[address] [place] [address] 02687 CO2 [Moles/Vol] 28.8 mmol/L Normal 21.0 - 32.0 [facility] Comment on above: Performed By: #### 2 89265 ####[facility],[address] [place] [address] 83195 Creatinine [Mass/Vol] 1.05 mg/dL Normal 0.70 - 1.[address] [facility] Comment on above: Performed By: #### 2 08933 ####[facility],[address] [place] [address] 74939 GFR/1.73 sq M.predicted among non-blacks MDRD (S/P/Bld) [Vol rate/Area] mL/min/{1.73_m2} Normal 60 - 999 [facility] Comment on above: Performed By: #### 2 13816 ####[facility],[address] [place] [address] Result Comment: ACCO RDING TO THE NATIONAL KIDNEY DISEASE EDUCATION PROGRAM(NKDE), A NORMAL eGFR IS A VALUE GREATER THAN OR EQUAL TO 60 ML/MIN/1.73 SQ METERS. CHRONIC KIDNEY DISEASE: <60mL/MIN/1.73 SQ METERS KIDNEY FAILURE: <15mL/MIN/1.73 SQ METERS THIS TEST SHOULD ONLY BE USED FOR PATIENTS 18 YEARS OF AGE AND OLDER. Globulin (S) [Mass/Vol] 3.4 g/dL Normal 1.5 - 3.8 [facility] Comment on above: Performed By: #### 2 65692 ####[facility],[address] [place] [address] 07226 Glucose [Mass/Vol] 93 mg/dL Normal 74 - 106 [facility] Comment on above: Performed By: #### 2 92406 ####[facility],[address] [place] [address] 09367 Potassium [Moles/Vol] 4.3 mmol/L Normal 3.5 - 5.1 [facility] Comment on above: Performed By: #### 2 33815 ####[facility],[address] [place] [address] 06451 Protein [Mass/Vol] 6.9 g/dL Normal 6.4 - 8.2 [facility] Comment on above: Performed By: #### 2 57620 ####[facility],[address] [place] [address] 47979 Sodium [Moles/Vol] 141 mmol/L Normal 136 - 145 [facility] Comment on above: Performed By: #### 2 86845 ####[facility],[address] [place] [address] 25106 Urea nitrogen [Mass/Vol] 23 mg/dL High 7 - 18 [facility] Comment on above: Performed By: #### 2 92808 ####[facility],[address] [place] [address] 52112 LIPID PROFILEon 12-17-2024 Cholesterol [Mass/Vol] 158 mg/dL Normal 0 - [address] [facility] Comment on above: Performed By: #### 2 42239 #### [facility],[address] [place] [address] 09976 Cholesterol in HDL [Mass/Vol] 72 mg/dL High 40 - 60 [facility] Comment on above: Performed By: #### 2 67531 #### [facility],[address] [place] [address] 74662 Cholesterol in LDL [Mass/Vol] 81 mg/dL Normal 0 - 129 [facility] Comment on above: Performed By: #### 2 75675 #### [facility],[address] [place] [address] 74068 Cholesterol.total/Beatrice sterol in HDL [Mass ratio] 2.2 {ratio} Normal 0.0 - 5.0 [facility] Comment on above: Performed By: #### 2 25435 #### [facility],[address] [place] [address] 12005 Lipid 1996 panel Normal [facility] Comment on above: Result Comment: LIPI D PROFILE Performed By: #### 2 59617 #### [facility],[address] [place] [address] 98937 Triglyceride [Mass/Vol] 27 mg/dL Normal 0 - 150 [facility] Comment on above: Performed By: #### 2 84496 #### [facility],[address] [place] [address] 62829 T4 Free SerPl-mCncon 025 Free T4 [Mass/Vol] 1.2 ng/dL Normal 0.9-1.7 [facility] Comment on above: Order Comment: Speci men Type: BLOOD SPECIMEN Ordering Facility: [facility] Address: [address] [place] [address] Performed By: #### 3 024-7 #### [facility] CLIA [id number] [address] [place] [address] [place] TSHon 12-17-2024 TSH Qn 3.05 m[IU]/L Normal 0.35 - 3.74 [facility] Comment on above: Performed By: #### 2 29453 #### [facility],[address] [place] [address] 06942 Carotid Duplex Ultrasoundon 10-28-2024 Carotid Duplex Ultrasound [facility] [address] [place] [address] Carotid Duplex Ultrasound 10/28/24 1300 MR#: [id number] Acct: [id number] Name: SABIHA WEBBER Rep #: [id number] : 1940 83 From: Blake Gonzalez MD [...] in left vertebral artery. Procedure Carotid Duplex 11135. This is a Carotid Duplex examination using [...] Date Dictated: 10/28/24 1300 Date Transcribed: 10/29/24940 Claims Correspondence Clerk: Signed Normal [facility] CBC + DIFFon 10-16-2024 Baso # 0.03 x10EE3/UL Normal 0.00 - 0.10 [facility] Comment on above: Performed By: #### 2 55345 ####[facility],[address] [place] [address] 24174 Basophils/100 WBC (Bld) 0.3 % Normal 0.0 - 2.0 [facility] Comment on above: Performed By: #### 2 01169 ####[facility],[address] [place] [address] 70296 CBC + DIFF Normal [facility] Comment on above: Result Comment: CBC- COMPLETE BLOOD COUNT Performed By: #### 2 54909 ####[facility],[address] [place] [address] 79401 EO # 0.06 x10EE3/UL Normal 0.00 - 0.50 [facility] Comment on above: Performed By: #### 2 01083 ####[facility],[address] [place] [address] 04651 Eosinophils/100 WBC (Bld) 0.6 % Normal 0.0 - 7.0 [facility] Comment on above: Performed By: #### 2 17509 ####[facility],[address] [place] [address] 35958 Erythrocyte distribution width (RBC) [Ratio] 13.6 % Normal 12.0 - 15.6 [facility] Comment on above: Performed By: #### 2 63667 ####[facility],[address] [place] [address] 15680 Hematocrit (Bld) [Volume fraction] 42.4 % Normal 40.0 - 52.0 [facility] Comment on above: Performed By: #### 2 65101 ####[facility],[address] [place] [address] 12980 Hemoglobin (Bld) [Mass/Vol] 14.1 g/dL Normal 13.0 - 17.5 [facility] Comment on above: Performed By: #### 2 01914 ####[facility],[address] [place] [address] 28715 Lymph # 0.70 x10EE3/UL Low 0.80 - 2.80 [facility] Comment on above: Performed By: #### 2 56823 ####[facility],[address] [place], [place] [address] Lymphocytes/100 WBC (Bld) 6.7 % Low 20.0 - 45.0 [facility] Comment on above: Performed By: #### 2 94751 ####[facility],[address] [place] [address] 71988 MANUAL DIFF N/A Normal [facility] Comment on above: Performed By: #### 2 46982 ####[facility],[address] [place] [address] 91498 MCH (RBC) [Entitic mass] 34 pg High 27 - 33 [facility] Comment on above: Performed By: #### 2 76651 ####[facility],[address] [place] [address] 58752 MCHC 33 X10 3 Normal 32 - 36 [facility] Comment on above: Performed By: #### 2 00089 ####[facility],[address] [place] [address] 65663 MCV (RBC) [Entitic vol] 104 fL High 81 - 98 [facility] Comment on above: Performed By: #### 2 01112 ####[facility],[address] [place] [address] 72604 [place] # 1.04 x10EE3/UL High 0.20 - 1.00 [facility] Comment on above: Performed By: #### 2 19166 ####[facility],[address] [place] [address] 98935 MONOS % 10.1 % High 0.0 - 10.0 [facility] Comment on above: Performed By: #### 2 38938 ####[facility],[address] [place] [address] 81143 Morphology Yao (Bld) [Interp] N/A Normal [facility] Comment on above: Performed By: #### 2 81875 ####[facility],[address] [place] [address] 79355 Neut # 8.55 x10EE3/UL High 1.50 - 7.10 [facility] Comment on above: Performed By: #### 2 17792 ####[facility],[address] [place] [address] 40993 Neutrophils/100 WBC (Bld) 82.4 % High 46.0 - 76.0 [facility] Comment on above: Performed By: #### 2 64985 ####[facility],[address] [place] [address] 09546 PLATELET 194 x10EE3/UL Normal 150 - 450 [facility] Comment on above: Performed By: #### 2 14319 ####[facility],[address] [place] [address] 20542 Platelet mean volume (Bld) [Entitic vol] 9.5 fL Normal 6.4 - 10.5 [facility] Comment on above: Result Comment: AUTO MATED DIFFERENTIAL Performed By: #### 2 73188 ####[facility],[address] [place] [address] 60541 RBC 4.10 x 10EE6/UL Low 4.50 - 6.00 [facility] Comment on above: Performed By: #### 2 86298 ####[facility],[address] [place] [address] 51556 WBC 10.4 x 10EE3/UL Normal 4.5 - 10.8 [facility] Comment on above: Performed By: #### 2 59514 ####[facility],[address] [place] [address] 08865 CMP with eGFRon 10-16-2024 AGE 83 years Normal [facility] Comment on above: Performed By: #### 2 12977 #### [facility],[address] [place] [address] 65328 Albumin [Mass/Vol] 3.3 g/dL Low 3.4 - 5.0 [facility] Comment on above: Performed By: #### 2 38801 #### [facility],[address] [place] [address] 27099 Albumin/Globulin [Mass ratio] 1.0 {ratio} Normal 0.9 - 1.6 [facility] Comment on above: Performed By: #### 2 26064 #### [facility],[address] [place] [address] 83769 ALK PHOS 100 U/L Normal 46 - 116 [facility] Comment on above: Performed By: #### 2 13645 #### [facility],[address] [place] [address] 61245 ALT [Catalytic activity/Vol] 36 U/L Normal 16 - 63 [facility] Comment on above: Performed By: #### 2 25759 #### [facility],[address] [place] [address] 68110 Anion gap [Moles/Vol] 7 mmol/L Low 10 - 20 [facility] Comment on above: Performed By: #### 2 53957 #### [facility],[address] [place] [address] 49729 AST [Catalytic activity/Vol] 21 U/L Normal 15 - 37 [facility] Comment on above: Performed By: #### 2 70149 #### [facility],[address] [place] [address] 34843 B/C RATIO 23 ratio Normal 0 - 30 [facility] Comment on above: Performed By: #### 2 94364 #### [facility],[address] [place] [address] 38387 Bilirubin [Mass/Vol] 0.6 mg/dL Normal 0.2 - 1.0 [facility] Comment on above: Performed By: #### 2 52199 #### [facility],[address] [place] [address] 43088 Calcium [Mass/Vol] 9.0 mg/dL Normal 8.5 - 10.1 [facility] Comment on above: Performed By: #### 2 39695 #### [facility],[address] [place] [address] 69720 Chloride [Moles/Vol] 107 mmol/L Normal 98 - 107 [facility] Comment on above: Performed By: #### 2 66443 #### [facility],[address] [place] [address] 46167 CMP with eGFR Normal [facility] Comment on above: Result Comment: COMP REHENSIVE METABOLIC PANEL Performed By: #### 2 50444 #### [facility],[address] [place] [address] 46719 CO2 [Moles/Vol] 30.8 mmol/L Normal 21.0 - 32.0 [facility] Comment on above: Performed By: #### 2 10605 #### [facility],[address] [place] [address] 41834 Creatinine [Mass/Vol] 1.11 mg/dL Normal 0.70 - 1.[address] [facility] Comment on above: Performed By: #### 2 17539 #### [facility],[address] [place] [address] 74909 GFR/1.73 sq M.predicted among non-blacks MDRD (S/P/Bld) [Vol rate/Area] mL/min/{1.73_m2} Normal 60 - 999 [facility] Comment on above: Performed By: #### 2 35329 #### [facility],[address] [place] [address] 81868 Result Comment: ACCO RDING TO THE NATIONAL KIDNEY DISEASE EDUCATION PROGRAM(NKDE), A NORMAL eGFR IS A VALUE GREATER THAN OR EQUAL TO 60 ML/MIN/1.73 SQ METERS. CHRONIC KIDNEY DISEASE: <60mL/MIN/1.73 SQ METERS KIDNEY FAILURE: <15mL/MIN/1.73 SQ METERS THIS TEST SHOULD ONLY BE USED FOR PATIENTS 18 YEARS OF AGE AND OLDER. Globulin (S) [Mass/Vol] 3.3 g/dL Normal 1.5 - 3.8 [facility] Comment on above: Performed By: #### 2 63245 #### [facility],[address] [place] [address] 42536 Glucose [Mass/Vol] 86 mg/dL Normal 74 - 106 [facility] Comment on above: Performed By: #### 2 79787 #### [facility],[address] [place] [address] 92908 Potassium [Moles/Vol] 4.1 mmol/L Normal 3.5 - 5.1 [facility] Comment on above: Performed By: #### 2 31202 #### [facility],[address] [place] [address] 97771 Protein [Mass/Vol] 6.6 g/dL Normal 6.4 - 8.2 [facility] Comment on above: Performed By: #### 2 07629 #### [facility],[address] [place] [address] 31138 Sodium [Moles/Vol] 141 mmol/L Normal 136 - 145 [facility] Comment on above: Performed By: #### 2 70893 #### [facility],[address] [place] [address] 84028 Urea nitrogen [Mass/Vol] 25 mg/dL High 7 - 18 [facility] Comment on above: Performed By: #### 2 07798 #### [facility],[address] [place] [address] 16525 ED MED ADMINISTRATION DETAIL on 09-06-2024 ED MED ADMINISTRATION DETAIL [employer] Medication Administration Record [address] [address] [id number] 09/06/2024 Patient: SABIHA WEBBER Sex: Male : [...] [place] R.N. 1 of 1 Normal [facility] ED NURSES CLINICAL NOTEon ED NURSES CLINICAL NOTE Nurse Narrative Nurse Clinical Narrative [address] [address] [id number] 09/06/2024 Patient: SABIHA WEBBER Sex: Male : [...] Melendez R.N. 09/06/24 17:10:38 EST) Generated by [facility] 3 of 3 Normal [facility] [facility] ED ORDER SHEET (CPOE ONLY)on 09-06-2024 ED ORDER SHEET (CPOE ONLY) Order Sheet Order Sheet [address] [place] [address] [id number] 09/06/2024 Patient: SABIHA WEBBER Sex: Male : [...] (09/06/2024 16:04 EST)] 2 of 2 Normal [facility] ED PHYSICIAN CLINICAL REPORT on 09-06-2024 ED PHYSICIAN CLINICAL REPORT Narrative Physician Clinical Narrative [address] [place] [address] [id number] 09/06/2024 Patient: SABIHA WEBBER Sex: Male : [...] Leblanc D.O. 09/06/24 16:04:18 EST) Generated by [facility] 3 of 3 Normal [facility] ED [facility] BILL 09-06-2024 ED [facility] [address] [place] [address] [id number] 09/06/2024 Patient: SABIHA WEBBER Sex: Male : 1940 Age: 83y Item Professional Category Description Facility Code Code Quantity Fee Total Nurse/E/M EMERGENCY 689091 1 $0.00 $0.00 DEPARTMENT VISIT MODERATE SEVERITY (35085-56) Grand Total $0.00 Providers Luis Leblanc D.O. [...] knee, initial encounter 2 of 2 Normal [facility] ED VISIT SUMMARYon ED VISIT SUMMARY Visit Overview Visit Overview [address] [place] [address] [id number] 09/06/2024 Patient: SABIHA WEBBER Sex: Male : [...] LEVEL BY STUMBLING 3 of 3 Normal [facility] ED VITALS FLOW SHEETon 09-06 ED VITALS FLOW SHEET Vitals Vital Sign Flow Sheet [address] [address] [id number] 09/06/2024 Patient: SABIHA WEBBER Sex: Male : 1940 Age: 83y Measurements Wt: 72.6 kg Measured Time BP MAP HR RR O2Sat ETCO2 Temp Pain GCS RTS 16:57 09/06/2024 124/79 94 72 16 96% 98.0 F 1 14:10 09/06/2024 143/81 102 87 18 95% 98.9 F 6 1 of 1 Normal [facility] FEMUR RT 2+ VIEWSon 09-06-20 FEMUR RT 2+ VIEWS [address] [address] Patient: SABIHA WEBBER Phone#: : 1940 Age: 83 Gender: M Pt. Type: ER Account: [id number] Location: 052 Ordering: LUIS LEBLANC Exam Date: 09/06/2024/14:47 Family Phys: BUTROS LATOUF Charge Code: 180816 Physician: [place] Order #: [id number] Dose#: PROCEDURE: X-RAY FEMUR RT MIN 2 [...] Zambrano MD on 09/06/2024 at 22:03 Normal [facility] KNEE COMPLETE RT MIN 4 VIEWS on 09-06-2024 KNEE COMPLETE RT MIN 4 VIEWS [place] [address] Patient: SABIHA WEBBER Phone#: : 1940 Age: 83 Gender: M Pt. Type: ER Account: [id number] Location: 052 Ordering: LUIS LEBLANC Exam Date: 09/06/2024/14:38 Family Phys: BUTROS LATOUF Charge Code: 583003 Physician: [place] Order #: [id number] Dose#: PROCEDURE: X-RAY KNEE RT COMPLETE 4 VIEWS COMPARISON: None. INDICATIONS: Pain. FINDINGS: BONES: Normal. No significant arthropathy or acute abnormality. SOFT TISSUES: Negative. No visible soft tissue swelling. EFFUSION: None visible. OTHER: Negative. CONCLUSION: No acute disease. Dictated by: Luly Zambrano MD on 09/06/2024 at 22:01 Approved by: Luly Zambrano MD on 09/06/2024 at 22:01 Normal [facility] CBC + DIFFon 07-31-2024 Baso # 0.02 x10EE3/UL Normal 0.00 - 0.10 [facility] Comment on above: Performed By: #### 2 27687 ####[facility],[address] [place] [address] 35265 Basophils/100 WBC (Bld) 0.3 % Normal 0.0 - 2.0 [facility] Comment on above: Performed By: #### 2 90315 ####[facility],[address] [place] [address] CBC + DIFF Normal [facility] Comment on above: Result Comment: CBC- COMPLETE BLOOD COUNT Performed By: #### 2 14605 ####[facility],[address] [place] [address] EO # 0.03 x10EE3/UL Normal 0.00 - 0.50 [facility] Comment on above: Performed By: #### 2 20384 ####[facility],[address] [place] [address]47 Eosinophils/100 WBC (Bld) 0.5 % Normal 0.0 - 7.0 [facility] Comment on above: Performed By: #### 2 36575 ####[facility],[address] [place] [address] Erythrocyte distribution width (RBC) [Ratio] 13.6 % Normal 12.0 - 15.6 [facility] Comment on above: Performed By: #### 2 69044 ####[facility],[address] [place] [address] Hematocrit (Bld) [Volume fraction] 43.5 % Normal 40.0 - 52.0 [facility] Comment on above: Performed By: #### 2 46949 ####[facility],[address] [place] [address] Hemoglobin (Bld) [Mass/Vol] 14.7 g/dL Normal 13.0 - 17.5 [facility] Comment on above: Performed By: #### 2 52059 ####[facility],[address] [place], [place] [address] Lymph # 0.99 x10EE3/UL Normal 0.80 - 2.80 [facility] Comment on above: Performed By: #### 2 56982 ####[facility],[address] [place] [address]286 Lymphocytes/100 WBC (Bld) 13.4 % Low 20.0 - 45.0 [facility] Comment on above: Performed By: #### 2 91294 ####[facility],[address] [place] [address] MANUAL DIFF N/A Normal [facility] Comment on above: Performed By: #### 2 63902 ####[facility],[address] [place] [address] MCH (RBC) [Entitic mass] 34 pg High 27 - 33 [facility] Comment on above: Performed By: #### 2 00524 ####[facility],[address] [place] [address] MCHC 34 X10 3 Normal 32 - 36 [facility] Comment on above: Performed By: #### 2 09648 ####[facility],[address] [place], [place] [address] MCV (RBC) [Entitic vol] 100 fL High 81 - 98 [facility] Comment on above: Performed By: #### 2 93492 ####[facility],[address] [place] [address] [place] # 0.60 x10EE3/UL Normal 0.20 - 1.00 [facility] Comment on above: Performed By: #### 2 52030 ####[address] [address] MONOS % 8.0 % Normal 0.0 - 10.0 [facility] Comment on above: Performed By: #### 2 75448 ####[facility],[address] [place] [address] Morphology Yao (Bld) [Interp] N/A Normal [facility] Comment on above: Performed By: #### 2 34740 ####[facility],[address] [place] [address]649 Neut # 5.79 x10EE3/UL Normal 1.50 - 7.10 [facility] Comment on above: Performed By: #### 2 61091 ####[facility],[address] [place] [address]244 Neutrophils/100 WBC (Bld) 77.9 % High 46.0 - 76.0 [facility] Comment on above: Performed By: #### 2 68553 ####[facility],[address] [place] [address] PLATELET 198 x10EE3/UL Normal 150 - 450 [facility] Comment on above: Performed By: #### 2 22935 ####[facility],[address] [place] [address] 35970 Platelet mean volume (Bld) [Entitic vol] 8.8 fL Normal 6.4 - 10.5 [facility] Comment on above: Result Comment: AUTO MATED DIFFERENTIAL Performed By: #### 2 51325 ####[facility],[address] [place] [address] 91968 RBC 4.33 x 10EE6/UL Low 4.50 - 6.00 [facility] Comment on above: Performed By: #### 2 21744 ####[facility],[address] [place] [address] WBC 7.4 x 10EE3/UL Normal 4.5 - 10.8 [facility] Comment on above: Performed By: #### 2 25414 ####[facility],[address] [place] [address] 14556 CMP with eGFRon 07-31-2024 AGE 83 years Normal [facility] Comment on above: Performed By: #### 2 62625 #### [facility],[address] [place] [address] 83163 Albumin [Mass/Vol] 3.7 g/dL Normal 3.4 - 5.0 [facility] Comment on above: Performed By: #### 2 37277 #### [facility],[address] [place] [address] Albumin/Globulin [Mass ratio] 1.0 {ratio} Normal 0.9 - 1.6 [facility] Comment on above: Performed By: #### 2 25507 #### [facility],[address] [place] [address] ALK PHOS 109 U/L Normal 46 - 116 [facility] Comment on above: Performed By: #### 2 42760 #### [facility],[address] [place] [address] ALT [Catalytic activity/Vol] 25 U/L Normal 16 - 63 [facility] Comment on above: Performed By: #### 2 22375 #### [facility],[address] [place] [address] Anion gap [Moles/Vol] 12 mmol/L Normal 10 - 20 [facility] Comment on above: Performed By: #### 2 82333 #### [facility],[address] [place] [address] AST [Catalytic activity/Vol] 23 U/L Normal 15 - 37 [facility] Comment on above: Performed By: #### 2 20528 #### [facility],[address] [place] [address] B/C RATIO 22 ratio Normal 0 - 30 [facility] Comment on above: Performed By: #### 2 29846 #### [facility],[address] [place] [address]4670 Bilirubin [Mass/Vol] 0.7 mg/dL Normal 0.2 - 1.0 [facility] Comment on above: Performed By: #### 2 99550 #### [facility],[address] [place] [address]897 Calcium [Mass/Vol] 9.7 mg/dL Normal 8.5 - 10.1 [facility] Comment on above: Performed By: #### 2 25485 #### [facility],[address] [place], [place] [address] Chloride [Moles/Vol] 105 mmol/L Normal 98 - 107 [facility] Comment on above: Performed By: #### 2 91588 #### [facility],[address] [place] [address] CMP with eGFR Normal [facility] Comment on above: Result Comment: COMP REHENSIVE METABOLIC PANEL Performed By: #### 2 79330 #### [facility],[address] [place] [address] CO2 [Moles/Vol] 29.1 mmol/L Normal 21.0 - 32.0 [facility] Comment on above: Performed By: #### 2 34933 #### [facility],[address] [place], [place] [address] Creatinine [Mass/Vol] 1.22 mg/dL Normal 0.70 - 1.[address] [facility] Comment on above: Performed By: #### 2 42161 #### [facility],[address] [place] [address] eGFR 57 ML/MINUTE Low 60 - 999 [facility] Comment on above: Performed By: #### 2 02579 #### [facility],[address] [place], [place] [address] GFR/1.73 sq M.predicted among non-blacks MDRD (S/P/Bld) [Vol rate/Area] mL/min/{1.73_m2} Normal 60 - 999 [facility] Comment on above: Result Comment: ACCO RDING TO THE NATIONAL KIDNEY DISEASE EDUCATION PROGRAM(NKDE), A NORMAL eGFR IS A VALUE GREATER THAN OR EQUAL TO 60 ML/MIN/1.73 SQ METERS. CHRONIC KIDNEY DISEASE: <60mL/MIN/1.73 SQ METERS KIDNEY FAILURE: <15mL/MIN/1.73 SQ METERS THIS TEST SHOULD ONLY BE USED FOR PATIENTS 18 YEARS OF AGE AND OLDER. Performed By: #### 2 73452 #### [facility],[address] [place] [address] Globulin (S) [Mass/Vol] 3.7 g/dL Normal 1.5 - 3.8 [facility] Comment on above: Performed By: #### 2 35162 #### [facility],[address] [place] [address]3761 Glucose [Mass/Vol] 97 mg/dL Normal 74 - 106 [facility] Comment on above: Performed By: #### 2 38633 #### [facility],[address] [place] [address] 20971 Potassium [Moles/Vol] 4.9 mmol/L Normal 3.5 - 5.1 [facility] Comment on above: Performed By: #### 2 35789 #### [facility],[address] [place] [address]6031 Protein [Mass/Vol] 7.4 g/dL Normal 6.4 - 8.2 [facility] Comment on above: Performed By: #### 2 89546 #### [facility],[address] [place] [address] 26792 Sodium [Moles/Vol] 141 mmol/L Normal 136 - 145 [facility] Comment on above: Performed By: #### 2 88712 #### [facility],[address] [place] [address] 79710 Urea nitrogen [Mass/Vol] 27 mg/dL High 7 - 18 [facility] Comment on above: Performed By: #### 2 87046 #### [facility],[address] [place] [address] 06273 No Panel InformationOrdered By: Blake Gonzalez on 09-26-2023 Estimated GFR (MDRD) Amer 76 mL/min >60 [facility] Comment on above: GFR Calc Estimated GFR (MDRD) Non-Af Amer 63 mL/min >60 [facility] Comment on above: Non- GFR Calc Serum or plasma creatinine m easurement (mass/volume)Ordered By: Blake Gonzalez on 09-26-2023 Creatinine [Mass/Vol] 1.18 mg/dL 0.70-1.30 [facility] Comment on above: The validity of the calculated GFR & GFRAA in patients over 70 years has not been determined. Clinical correlation is essential. Vital Signs Date Time Vital Sign Value Performing Clinician Facility 06-09-2025 16:10-0400 Body temperature 98.2 [degF] Reanna Diaz PA Work Phone: [facility] 06-09-2025 16:10-0400 Body weight 61.23 kg Reanna Diaz PA Work Phone: [facility] 06-09-2025 16:10-0400 Diastolic blood pressure 79 mm[Hg] Reanna Diaz PA Work Phone: [facility] 06-09-2025 16:10-0400 Heart rate 86 /min Reanna Diaz PA Work Phone: [facility] 06-09-2025 16:10-0400 Respiratory rate 16 /min Reanna Diaz PA Work Phone: [facility] 06-09-2025 16:10-0400 SaO2% (BldA) [Mass fraction] 95 % Reanna Diaz PA Work Phone: [facility] 06-09-2025 16:10-0400 Systolic blood pressure 144 mm[Hg] Reanna Diaz PA Work Phone: [facility] 12-20-2023 14:47-0400 Body temperature 97.39 [degF] Cristina Elias BILLING CLINICIAN.CONDITIONING MACHINE OPERATOR Work Phone: [facility] 12-20-2023 14:47-0400 Body weight 62.9 kg Cristina Elias BILLING CLINICIAN.CONDITIONING MACHINE OPERATOR Work Phone: [facility] 12-20-2023 14:47-0400 Diastolic blood pressure 61 mm[Hg] Cristina Elias BILLING CLINICIAN.CONDITIONING MACHINE OPERATOR Work Phone: [facility] 12-20-2023 14:47-0400 Heart rate 74 /min Cristina Praisler-Wood BILLING CLINICIAN.CONDITIONING MACHINE OPERATOR Work Phone: [facility] 12-20-2023 14:47-0400 Respiratory rate 18 /min Cristina Praisler-Wood BILLING CLINICIAN.CONDITIONING MACHINE OPERATOR Work Phone: [facility] 12-20-2023 14:47-0400 SaO2% (BldA) [Mass fraction] 99 % Cristina Praisler-Wood BILLING CLINICIAN.CONDITIONING MACHINE OPERATOR Work Phone: [facility] 12-20-2023 14:47-0400 Systolic blood pressure 92 mm[Hg] Cristina Praisler-Wood BILLING CLINICIAN.CONDITIONING MACHINE OPERATOR Work Phone: [facility] 09-26-2023 13:14-0500 Body temperature 98.4 [degF] Dr. Blake Gonzalez Work Phone: [facility] 09-26-2023 13:14-0500 Body weight 59.[address] Blake Gonzalez Work Phone: [facility] 09-26-2023 13:14-0500 Diastolic blood pressure 76 mm[Hg] Dr. Blake Gonzalez Work Phone: [facility] 09-26-2023 13:14-0500 Heart rate 74 /min Dr. Blake Gonzalez Work Phone: [facility] 09-26-2023 13:14-0500 Respiratory rate 16 /min Dr. Blake Gonzalez Work Phone: [facility] 09-26-2023 13:14-0500 SaO2% (BldA) [Mass fraction] 96 % Dr. Blake Gonzalez Work Phone: [facility] 09-26-2023 13:14-0500 Systolic blood pressure 148 mm[Hg] Dr. Blake Gonzalez Work Phone: [facility] Encounters Encounter Date Encounter Type Care Provider Facility Start: 07-25-2025 End: 07-27-2025 ambulatory VIRGIE BILLING CLINICIAN SEFFENS [facility] Start: 07-01-2025 End: 07-01-2025 amb[facility] Start: 06-09-2025 End: 06-09-[address] Blake Gonzalez MD -[facility] Work Phone: Start: 06-09-2025 End: 06-09-2025 ambulatory Blake Gonzalez Facility:[facility] Start: 04-26-2025 Non-patient / Non-visit Dr. Blake yuen MD -[facility] Start: 04-26-2025 End: 04-26-2025 ambulatory Reanna POSEY Work Phone: -[facility] Start: 04-26-2025 End: 04-26-2025 Patient encounter procedure Reanna POSEY -[facility] Work Phone: Start: 04-26-2025 End: 04-26-2025 ambulatory Reanna Diaz Facility:[facility] Start: 04-08-2025 End: 04-08-2025 ambulatory TOMEKA GOMES [facility] Start: 01-13-2025 End: 01-13-2025 ambulatory T[facility] L[facility]PEZ [facility] Start: 12-17-2024 End: 12-17-2024 ambulatory CODY DELANEY [facility] Start: 12-11-2024 ambulatory CODY DELANEY [facility] Start: 10-28-2024 ambulatory Cody Crowrobert Facility: [facility] Start: 10-28-2024 End: 10-28-2024 ambulatory Cody [facility] Facility:[facility] Start: 10-16-2024 End: 10-16-2024 ambulatory TOMEKA GOMES [facility] Start: 09-06-2024 End: 09-06-2024 [facility] Start: 07-31-2024 End: 07-31-2024 ambulatory TOMEKA GOMES [facility] Start: 12-20-2023 End: 12-20-2023 Patient encounter procedure Cristina LevinOsvaldo ARMSTRONG Work Phone: [facility] Comment on above: Viral URI with cough (Primary Dx) Start: 10-11-2023 Non-patient / Non-visit Dr. Boo Delaney Work Phone: [facility] Start: 10-11-2023 End: 10-11-[address] Cody Delaney Work Phone: [facility] Work Phone: Start: 10-11-2023 End: 10-11-[address] Cody Delaney Work Phone: [facility] Work Phone: Start: 09-26-2023 End: 09-26-[address] Blake Gonzalez Work Phone: [facility] Work Phone: Start: 09-26-2023 End: 09-26-[address] Blake Gonzalez Work Phone: [facility]Laboratory Work Phone: Start: 09-26-2023 End: 09-26-[address] Blake Gonzalez Work Phone: [facility] Work Phone: Start: 08-16-2023 Emergency department patient visit BRENNAN BARROS [facility] Procedures Date Procedure Procedure Detail Performing Clinician Start: 07-26-2025 Urinalysis TOMEKA ROSALVA ANKI Comment on above: Result Comment: URIN ALYSIS Performed By: #### 2 43625 ####[facility],[address] [place] [address] Start: 07-25-2025 Urinalysis TOMEKA ROSALVA ANKI Comment on above: Result Comment: URIN ALYSIS Performed By: #### 2 80922 #### [facility],[address] [facility] [address] Start: 10-11-2023 CT angiography of he ad and neck Dr. Cody Delaney Work Phone: Plan of Treatment Date Care Activity Detail Author Start: 05-17-2024 Influenza vaccination Influenza Vaccine (Season Ended) [facility] Start: 09-16-2023 Advance Directive Discussion Advance Directive Discussion [facility] Start: 09-16-2023 Behavioral Health Screening Behavioral Health Screening [facility] Start: 05-17-2023 Covid-19 Vaccine ( season) Covid-19 Vaccine ( season) [facility] Start: 2005 Pneumococcal Vaccine: 65+ (1 of 1 - PCV) Pneumococcal Vaccine: 65+ (1 of 1 - PCV) [facility] Start: 2000 RSV Vaccine (1 - 1-dose 60+ series) RSV Vaccine (1 - 1-dose 60+ series) [facility] Start: 1990 Shingrix Vaccine (1 of 2) Shingrix Vaccine (1 of 2) [facility] Start: 1985 Diabetes Screening Diabetes Screening [facility] Start: 12-16-1959 Urine microalbumin profile DTaP,Tdap,Td Vaccine (1 - Tdap) [facility] Ankle brachial press ure index [facility] CTA Head vessels and Neck vessels W contrast IV [facility] US Carotid arteries [facility] Payers Date Payer Category Payer Self-pay 2023 Unknown [employer] H[employer] POS [id number] 2023-Present [phone] [address] [place] [address] O [id number] 2010 Unknown [id number] 1940 Unknown [id number] 1940 Unknown [id number] 2.16.840.1.060491.3.579.2.651 1940 Unknown [id number] 2.16.840.1.586725.3.579.2.651 1940 Unknown [id number] 2.16.840.1.478485.3.579.2.651 1940 Unknown [id number] 2.16.840.1.964334.3.579.2.651 1940 Unknown [id number] 2.16.840.1.855002.3.579.2.651 1940 Unknown [id number] 2.16.840.1.410437.3.579.2.651 1940 Unknown [id number] 2.16.840.1.237969.3.579.2.651 1940 Unknown [id number] 2.16.840.1.476747.3.579.2.651 Unknown [id number] 2.16.840.1.270082.3.579.2.462 Unknown [id number] 2.16.840.1.825351.3.579.2.462 Unknown [id number] 2.16.840.1.345777.3.579.2.462 Unknown [id number] 2.16.840.1.720115.3.579.2.462 Unknown [id number] 2.16.840.1.128894.3.579.2.462 Social History Date Type Detail Facility Start: 09-26-[address] [facility] Start: 1940 Sex Assigned At Male [facility] Start: 12-20-[address] [facility] tobacco [facility] Start: 12-20-2023 Tobacco use and exposure Smokeless tobacco non-user [facility] Start: 12-20-2023 History of Social function [facility] Start: 12-20-2023 Tobacco use panel [facility] Start: 1940 Sex Assigned At Not on file [facility] Start: 10-16-2023 Tobacco smoking stat us NHIS Current some day smoker [facility] Clinical Notes 12-20-2023 to 07-25-2025 [...] Locations *1: This test was performed at: [address], [facility] , [facility] 07-25-2025 Note . MICRO - Microbiology PROCEDURE: [...] Locations *1: This test was performed at: [address], [address] [place] [address] 06-09-2025 Progress note [facility] 06-09-2025 Progress note Note Date/Time June 09, 2025 4:29pm [facility] [address] [place] [address] OFFICE VISIT Date of Service: 06/09/25 MR#: [id number] Acct: [id number] Name: SABIHA WEBBER Rep #: [id number] : 1940 Provider: Dr. Blake Gonzalez MD Age/Sex: 84/M Location: [facility] Status: Signed Intake Vital Signs 06/09/25 16:10 [...] fallen in the past year?: Yes 06/10/25 1846 <Electronically signed by Blake Lynn> Date _ Blake Joel Signature: Date (if applicable) CC: ~ [facility] Work Phone: 1(882) 279-180012-22-2024 NoteDischarge Instructions Discharge Summary [address] [place] [address] [id number] 09/06/2024 Patient: SABIHA WEBBER Sex: Male : 1940 Age: 83y Thank you for visiting [facility]. You have been evaluated today by [...] Fall Lower Extremity Bruise Patient Signature Facility Configuration Consultant Date/Time 1 of 5 Discharge Instructions General Instructions with ExitWriter [address] [place] [address] [phone] 09/06/2024 Patient: SABIHA WEBBER Sex: Male : 1940 Age: 83y Thank you for visiting [facility]. You have been evaluated today by [...] in preventing falls. If (more content not included)...[facility]04-05-2024 Instructions* Patient Instructions* Cristina Elias APRN.CONDITIONING MACHINE OPERATOR - 12/20/2023 3:07 PM EDT ASSESSMENT/PLAN: 1. [...] fluids help open respiratory and sinus passages [place] Nasal Brewer may offer relief of nasal and head [...] worse rather than better [facility] History of Present illness Narrative* Bess [...] testing, patient declined. CHERYL Brand TEACHING PROVIDER (Physician/PA/BILLING CLINICIAN) NOTE OF PERSONAL INVOLVEMENT IN CARE: I have personally seen and examined the patient and performed the medical decision-making components. I have reviewed the Advanced Practice Registered Nurse (BILLING CLINICIAN) Student's documentation and verified the findings in the note as written. Any additions or changes are noted in bold/italics. Signature: Cristina Elias Date: 12/20/2023 Time: 3:21 PM [facility]* Diagnosis Onset Date Resolution Status Carotid stenosis, right chore worker [facility] Work Phone: Evaluation note* Diagnosis Viral URI with cough- Primary Acute upper respiratory infections of unspecified site [facility] encounter [facility] noteNo assessment information availableWMagruder [facility] Work Phone: Evaluation note* Diagnosis Onset Date Resolution Status Admit Date Carotid stenosis, right chronic S eptember 2024 3:59pm [facility] Work Phone: Reason for referral (narrative)No reason for referral information availableWMagruder Memorial Hospital Work Phone: Summary Purpose Family [...] content) DATE CREATED AUTHOR 08/19/2023 Brannon Carmichael [facility] DATE CREATED AUTHOR AUTHOR'S ORGANIZ ATION 12/20/2024 [facility] DATE CREATED AUTHOR AUTHOR'S ORGANIZ ATION 06/11/2025 [facility] DATE CREATED AUTHOR AUTHOR'S ORGANIZ ATION 07/26/2025 [facility] DATE CREATED AUTHOR AUTHOR'S ORGANIZ ATION 07/28/2025 [facility] Care Teams (unrecognized sec tion and [...] or prosecute any alcohol or drug abuse patient.[facility] Reason for Visit (unrecogniz ed section [...] BE BASED ON THE PRIMARY CLINICAL RECORDS. [employer] provides no warranty or guarantee of the accuracy or completeness of information in this document.
[2025-09-04 16:30] VITALS: BP 154/69; PULSE 96; RESP 18; TEMP 36.6; O2SAT 98
[2025-09-04 16:55] VITALS: PULSE 96; RESP 18; O2SAT 98; BMI 20.7
--- NOTE | 2025-09-04 17:42 | PCM.HP.STD ---
HPI - General General Date of Admission: 09/04/25 Chief Complaint: post op pain HPI Narrative SABIHA WEBBER, is a 84 M who presents to er with bladder spasma and postop pain will admit. [facility] Medical History (Updated 09/04/25 @ 15:[address] Laura Wolfe, DO) Wears glasses Fall Ambulates with cane Walker as ambulation aid Rheumatoid arthritis UTI (urinary tract infection) Prostate disease Indwelling urethral catheter present High cholesterol Back pain Shingles Former smoker History of pain when walking Elevated serum creatinine Glaucoma Benign prostatic hyperplasia Home Medications ?Medication ?Instructions ?Recorded ?Last Taken ?Type acetaminophen 650 mg 650 mg PO Q8H PRN pain 02/25/23 Unknown History tablet,extended release (Tylenol Arthritis Pain) folic acid 1 mg tablet 2 mg PO DAILY 02/25/23 Unknown History latanoprost 0.005 % eye drops 1 drp ophthalmic (eye) QPM 02/25/23 Unknown History methotrexate sodium 2.5 mg tablet 12.5 mg PO WE 02/25/23 Unknown History atorvastatin 40 mg tablet 40 mg PO QHS #30 tabs 12/08/24 Unknown Rx lutein 20 mg capsule 20 mg PO QDAY 06/09/25 Unknown History prednisone 10 mg tablet 10 mg PO DAILY PRN RA 08/27/25 Unknown History tramadol 50 mg tablet 50 mg PO TID PRN PRN pain 08/27/25 Unknown History ciprofloxacin HCl 500 mg tablet 500 mg PO BID #14 tabs 09/01/25 Unknown Rx docusate sodium 100 mg capsule 100 mg PO BID #20 caps 09/01/25 Unknown Rx (Colace) gabapentin 100 mg capsule 100 mg PO BID 09/01/25 Unknown History oxycodone 5 mg tablet 5 mg PO Q6H PRN pain 7 days #20 09/01/25 Unknown Rx tabs Allergy/AdvReac Type Severity Reaction Status Date / Time No Known Allergies Allergy Verified 09/04/25 12:21 Family History Father Myocardial infarction Mother CVA (cerebral vascular accident) Brother Cancer lung ca. Sister COPD (chronic obstructive pulmonary disease) Sister Dementia Other Sudden cardiac Surgical History Hx of colonoscopy History of prostate surgery H/O inguinal hernia repair (~2010) H/O cataract extraction (~2015) Social History Smoking Status: Former smoker Patient's Goals Of Care . What would you like to achieve or improve as a result of your hospital stay?: yes Vital Signs Vital Signs Vital Signs: 09/04/25 12:18 09/04/25 15:09 09/04/25 16:15 Temperature 98.3 F 98 F 98 F Temperature Source Oral Oral Pulse Rate 112 H 101 H 96 Respiratory Rate 20 H 18 18 Blood Pressure 152/63 H 152/89 H 154/69 H Blood Pressure Mean 92 110 97 Blood Pressure Source Monitor Blood Pressure Position Semi-Fowlers Blood Pressure Location Right Arm Pulse Ox 94 99 98 Oxygen Delivery Method Room Air Room Air Weight Weight: 56.699 kg Body Mass Index (BMI) 20.7 Physical Exam Const alert and oriented x3 General Appearance: cooperative HEENT normocephalic, head/scalp atraumatic, EAC's normal and TM's normal bilaterally Eyes PERRL and EOMs intact bilaterally Pupil: sluggish Neck no lymphadenopathy, supple and no JVD General: trachea midline Lymph Lymphatic: no lymphadenopathy noted, lymphedema and lymphadenopathy Resp normal respiratory effort, normal air movement and clear to auscultation bilaterally Cardio regular rate, regular rhythm and peripheral pulses 2+ throughout GI soft to palpation, non-tender and non-distended Extremity normal capillary refill and no clubbing, cyanosis or edema General Extremity: no tenderness to palpation of joints or extremities Skin no rashes or lesions noted General Skin Exam: turgor normal Lesions: no lesions Rashes: no rashes Neuro CN's II-XII intact bilaterally Speech: speech normal Motor Exam: strength 5/5 throughout; Negative for general weakness Psych thought process normal, cooperative and affect normal Appearance: appropriate Results Lab / Micro Data 09/04/25 12:40 09/04/25 12:40 Labs: Laboratory Results - last 24 hr 09/04/25 12:40: WBC 13.9 H, RBC 2.84 L, Hgb 9.5 L, Hct 28.5 L, MCV 100.4 H, MCH 33.5 H, MCHC 33.3, RDW Std Deviation 48.2 H, RDW Coeff of Jaky 13.2, Plt Count 206, MPV 10.2, Immature Gran % (Auto) 0.500, Neut % (Auto) 93.8 H, Lymph % (Auto) 3.7 L, [place] % (Auto) 1.6, Eos % (Auto) 0.3, Baso % (Auto) 0.1, Absolute Neuts (auto) 13.1 H, Absolute Lymphs (auto) 0.52 L, Nucleated RBC % 0, Sodium 132 L, Potassium 5.4 H, Chloride 101, Carbon Dioxide 20.1 L, Anion Gap 11, BUN 35 H, Creatinine 1.78 H, Estim Creat Clear Calc 24.77 L, Est GFR (MDRD) Non-Af 37 L, BUN/Creatinine Ratio 19.6, Glucose 118 H, Calcium 9.4 Imaging Radiology Impression Abdomen/Pelvis CT 09/04/25 13:22 IMPRESSION: 1. Emphysematous lung changes. Right pleural effusion with partial consolidation could be atelectasis or pneumonia. Partially visualized soft tissue emphysema of the right chest wall. 2. Bladder wall thickening which may be due to the decompressed state of the bladder or due to cystitis. 3. Scattered pneumoperitoneum of the abdomen and pelvis. This could be secondary to recent procedure. Clinical correlation is recommended. 4. Fecal retention in the colon consistent with constipation. 5. Extensive subcutaneous emphysema of the abdome, proximal thigh and scrotum n. 6. Degenerative changes of the spine as above. Reading Location: [id number] Assessment & Plan Assessment/Plan (1) Hematuria: PLAN: admit for obs (2) Post-operative pain:
--- OUTSIDE RECORDS SUMMARY | 2025-09-04 18:10 | XMS RPT_ITS | CCD ---
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 Blake Gonzalez Attending Provider [phone] Cody Delaney Primary Care Provider Unavailable Primary Care Provider Unavailabl e Reanna Maldonado Attending Provider [phone] Reanna Maldonado Referring Provider [phone] Care Physician, No Primary Primary Care [...] Referring Unava ilable Reanna Maldonado Attending Physician [phone] Care Physician, No Primary Primary Care Physicia [...] on above: Take 1 capsule by [facility] three times a day as needed for cough. folic acid 1 mg oral tablet (5 sources) Start: 4 take 2 tablets by mouth once folic acid 1 mg tablet Take 2 tablets by mouth every afternoon. 0 11/12/2023 Active Start: 02-25-2023 [facility] F[facility] 1 mg tablet Active 1 mg PO TWICE A DAY February 25, 2023 12:00am Complies with drug therapy Comment on above: Take 2 tablets by mo [facility] every afternoon. 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; Translations: [Other [facility] [...] eGFRon 07-27-2025 AGE 84 years Normal [facility] Comment on above: Performed By: #### 2 81880 ####[facility],[address] [place] [address] Anion gap [Moles/Vol] 9 mmol/L Low 10 - 20 [facility] Comment on above: Performed By: #### 2 83189 ####[facility],[address] [place] [address] BMP with eGFR Normal [facility] Comment on above: Result Comment: BASI C METABOLIC PANEL Performed By: #### 2 28156 ####[facility],[address] [place] [address] Calcium [Mass/Vol] 8.2 mg/dL Low 8.5 - 10.1 [facility] Comment on above: Performed By: #### 2 84507 ####[facility],[address] [place], [place] [address] Chloride [Moles/Vol] 99 mmol/L Normal 98 - 107 [facility] Comment on above: Performed By: #### 2 89720 ####[facility],[address] [place], [place] [address] CO2 [Moles/Vol] 26.1 mmol/L Normal 21.0 - 32.0 [facility] Comment on above: Performed By: #### 2 76928 ####[facility],[address] [place] [address] Creatinine [Mass/Vol] 0.96 mg/dL Normal 0.70 - 1.30 [place] Comment on above: Performed By: #### 2 80601 ####[facility],[address] [place] [address] GFR/1.73 sq M.predicted among non-blacks MDRD (S/P/Bld) [Vol rate/Area] mL/min/{1.73_m2} Normal 60 - 999 [facility] Comment on above: Performed By: #### 2 87347 ####[facility],[address] [place] [address] Result Comment: ACCO RDING TO THE NATIONAL KIDNEY DISEASE EDUCATION PROGRAM(NKDE), A NORMAL eGFR IS A VALUE GREATER THAN OR EQUAL TO 60 ML/MIN/1.73 SQ METERS. CHRONIC KIDNEY DISEASE: <60mL/MIN/1.73 SQ METERS KIDNEY FAILURE: <15mL/MIN/1.73 SQ METERS THIS TEST SHOULD ONLY BE USED FOR PATIENTS 18 YEARS OF AGE AND OLDER. Glucose [Mass/Vol] 83 mg/dL Normal 74 - 106 [facility] Comment on above: Performed By: #### 2 76421 ####[facility],[address] [place], [place] [address] Potassium [Moles/Vol] 4.2 mmol/L Normal 3.5 - 5.1 [facility] Comment on above: Performed By: #### 2 35235 ####[facility],[address] [place] [address] 83036 Sodium [Moles/Vol] 130 mmol/L Low 136 - 145 [facility] Comment on above: Performed By: #### 2 57146 ####[facility],[address] [place] [address] 18714 Urea nitrogen [Mass/Vol] 20 mg/dL High 7 - 18 [facility] Comment on above: Performed By: #### 2 60942 ####[facility],[address] [place] [address] 27996 B12 FOLATE PANELon Cobalamin (Vitamin B12) [Mass/Vol] 1094 pg/mL High 193 - 986 [facility] Comment on above: Performed By: #### 2 38431 #### [facility],[address] [place] [address] 45538 FOLATES 37.7 ng/ml Normal 8.6 - 58.9 [facility] Comment on above: Performed By: #### 2 00511 #### [facility],[address] [place] [address] 71546 CBC + DIFFon 07-26-2025 Baso # 0.02 x10EE3/UL Normal 0.00 - 0.10 [facility] Comment on above: Performed By: #### 2 24240 ####[facility],[address] [place] [address] 36812 Basophils/100 WBC (Bld) 0.3 % Normal 0.0 - 2.[address] [facility] Comment on above: Performed By: #### 2 69953 ####[facility],[address] [place] [address] 97452 CBC + DIFF Normal [facility] Comment on above: Result Comment: CBC- COMPLETE BLOOD COUNT Performed By: #### 2 35538 ####[facility],[address] [place] [address] 26244 EO # 0.08 x10EE3/UL Normal 0.00 - 0.50 [facility] Comment on above: Performed By: #### 2 38663 ####[place] [address] Eosinophils/100 WBC (Bld) 1.1 % Normal 0.0 - 7.0 [facility] Comment on above: Performed By: #### 2 45364 ####[facility],[address] [place] [address] Erythrocyte distribution width (RBC) [Ratio] 12.9 % Normal 12.0 - 15.6 [facility] Comment on above: Performed By: #### 2 57183 ####[place] [address] Hematocrit (Bld) [Volume fraction] 39.3 % Low 40.0 - 52.0 [facility] Comment on above: Performed By: #### 2 71577 ####[place] [address] Hemoglobin (Bld) [Mass/Vol] 13.6 g/dL Normal 13.0 - 17.5 [facility] Comment on above: Performed By: #### 2 52203 ####[place] [address] Lymph # 0.84 x10EE3/UL Normal 0.80 - 2.80 [facility] Comment on above: Performed By: #### 2 90404 ####[place] [id number] Lymphocytes/100 WBC (Bld) 11.1 % Low 20.0 - 45.0 [facility] Comment on above: Performed By: #### 2 56701 ####[place] [id number] MANUAL DIFF N/A Normal [facility] Comment on above: Performed By: #### 2 46836 ####[place] [address] MCH (RBC) [Entitic mass] 34 pg High 27 - 33 [facility] Comment on above: Performed By: #### 2 08947 ####[facility],[address] [place] [address] MCHC 35 X10 3 Normal 32 - 36 [facility] Comment on above: Performed By: #### 2 68014 ####[facility],[address] [place] [address] MCV (RBC) [Entitic vol] 98 fL Normal 81 - [address] [facility] Comment on above: Performed By: #### 2 44197 ####[facility],[address] [place] [address] Tama # 1.40 x10EE3/UL High 0.20 - 1.00 [facility] Comment on above: Performed By: #### 2 64757 ####[facility],[address] [place] [address] MONOS % 18.5 % High 0.0 - 10.0 [facility] Comment on above: Performed By: #### 2 61676 ####[facility],[address] [place] [address] Morphology Yao (Bld) [Interp] N/A Normal [facility] Comment on above: Performed By: #### 2 88168 ####[facility],[address] [place] [address] Neut # 5.23 x10EE3/UL Normal 1.50 - 7.10 [facility] Comment on above: Performed By: #### 2 56683 ####[facility],[address] [place] [address] Neutrophils/100 WBC (Bld) 69.0 % Normal 46.0 - 76.0 [facility] Comment on above: Performed By: #### 2 01934 ####[facility],[address] [place] [address] PLATELET 127 x10EE3/UL Low 150 - 450 [facility] Comment on above: Performed By: #### 2 26935 ####[facility],[address] [place] [address] 38666 Platelet mean volume (Bld) [Entitic vol] 8.6 fL Normal 6.4 - 10.5 [facility] Comment on above: Result Comment: AUTO MATED DIFFERENTIAL Performed By: #### 2 42788 ####[facility],[address] [place] [address] RBC 4.03 x 10EE6/UL Low 4.50 - 6.00 [facility] Comment on above: Performed By: #### 2 02879 ####[facility],[address] [place], [place] [address] WBC 7.6 x 10EE3/UL Normal 4.5 - 10.8 [facility] Comment on above: Performed By: #### 2 19188 ####[facility],[address] [place], [place] [address] CMP with eGFRon 07-26-2025 AGE 84 years Normal [facility] Comment on above: Performed By: #### 2 41209 ####[facility],[address] [place], [place] [address] Albumin [Mass/Vol] 2.5 g/dL Low 3.4 - 5.0 [facility] Comment on above: Performed By: #### 2 69100 ####[facility],[address] [place], [place] [address] Albumin/Globulin [Mass ratio] 0.9 {ratio} Normal 0.9 - 1.6 [facility] Comment on above: Performed By: #### 2 91252 ####[facility],[address] [place] [address] 63705 ALK PHOS 67 U/L Normal 46 - 116 [facility] Comment on above: Performed By: #### 2 18592 ####[facility],[address] [place] [address] 11392 ALT [Catalytic activity/Vol] 17 U/L Normal 16 - 63 [facility] Comment on above: Performed By: #### 2 03589 ####[facility],[address] [place] [address] 23265 Anion gap [Moles/Vol] 11 mmol/L Normal 10 - 20 [facility] Comment on above: Performed By: #### 2 99730 ####[facility],[address] [place] [address] 17244 AST [Catalytic activity/Vol] 23 U/L Normal 15 - 37 [facility] Comment on above: Performed By: #### 2 19555 ####[facility],[address] [place] [address] 74573 B/C RATIO 18 ratio Normal 0 - 30 [facility] Comment on above: Performed By: #### 2 91885 ####[facility],[address] [place] [address] 20841 Bilirubin [Mass/Vol] 0.7 mg/dL Normal 0.2 - 1.0 [facility] Comment on above: Performed By: #### 2 02411 ####[facility],[address] [place] [address] 58600 Calcium [Mass/Vol] 8.0 mg/dL Low 8.5 - 10.1 [facility] Comment on above: Performed By: #### 2 76871 ####[facility],[address] [place] [address] 67603 Chloride [Moles/Vol] 98 mmol/L Normal 98 - 107 [facility] Comment on above: Performed By: #### 2 45141 ####[facility],[address] [place] [address] 58135 CMP with eGFR Normal [facility] Comment on above: Result Comment: COMP REHENSIVE METABOLIC PANEL Performed By: #### 2 11560 ####[facility],[address] [place], [place] [address] CO2 [Moles/Vol] 23.5 mmol/L Normal 21.0 - 32.0 [facility] Comment on above: Performed By: #### 2 56250 ####[facility],[address] [place] [address] 49681 Creatinine [Mass/Vol] 0.95 mg/dL Normal 0.70 - 1.30 [place] Comment on above: Performed By: #### 2 50341 ####[facility],[address] [place], [place] [address] GFR/1.73 sq M.predicted among non-blacks MDRD (S/P/Bld) [Vol rate/Area] mL/min/{1.73_m2} Normal 60 - 999 [facility] Comment on above: Performed By: #### 2 32869 ####[facility],[address] [place] [address] Result Comment: ACCO RDING TO THE NATIONAL KIDNEY DISEASE EDUCATION PROGRAM(NKDE), A NORMAL eGFR IS A VALUE GREATER THAN OR EQUAL TO 60 ML/MIN/1.73 SQ METERS. CHRONIC KIDNEY DISEASE: <60mL/MIN/1.73 SQ METERS KIDNEY FAILURE: <15mL/MIN/1.73 SQ METERS THIS TEST SHOULD ONLY BE USED FOR PATIENTS 18 YEARS OF AGE AND OLDER. Globulin (S) [Mass/Vol] 2.9 g/dL Normal 1.5 - 3.[address] [facility] Comment on above: Performed By: #### 2 63948 ####[facility],[address] [place] [address] 34790 Glucose [Mass/Vol] 95 mg/dL Normal 74 - 106 [facility] Comment on above: Performed By: #### 2 56880 ####[facility],[address] [place] [address] 30173 Potassium [Moles/Vol] 3.9 mmol/L Normal 3.5 - 5.1 [facility] Comment on above: Performed By: #### 2 63638 ####[facility],[address] [place] [address] 75838 Protein [Mass/Vol] 5.4 g/dL Low 6.4 - 8.2 [facility] Comment on above: Performed By: #### 2 96992 ####[facility],[address] [place] [address] 77643 Sodium [Moles/Vol] 129 mmol/L Low 136 - 145 [facility] Comment on above: Performed By: #### 2 31094 ####[facility],[address] [place] [address] 87456 Urea nitrogen [Mass/Vol] 17 mg/dL Normal 7 - 18 [facility] Comment on above: Performed By: #### 2 56935 ####[facility],[address] [place] [address] 59237 TSH W/ REFLEX TO FREE T4on 1 09-25-2024 TSH Qn 3.54 m[IU]/L Normal 0.34 - 5.60 [facility] Comment on above: Performed By: #### 2 16242 #### [facility],[address] [place] [address] 69429 URINALYSISon 07-26-2025 Amorphous NONE Normal [facility] Comment on above: Performed By: #### 2 00319 ####[facility],[address] [place] [address] 19563 Bacteria TRACE Normal [facility] Comment on above: Performed By: #### 2 64542 ####[facility],[address] [place] [address] 49486 Bilirubin Ql (U) Negative Normal NORMAL: NEGATIVE [facility] Comment on above: Performed By: #### 2 33926 ####[facility],[address] [place] [address] 15077 Casts NONE Normal [facility] Comment on above: Performed By: #### 2 14452 ####[facility],[address] [place], [place] [address] Clarity (U) clear Normal NORMAL: CLEAR [facility] Comment on above: Performed By: #### 2 05145 ####[facility],[address] [place], [place] [address] Color (U) p.yel Normal NORMAL: YELLOW [facility] Comment on above: Performed By: #### 2 64943 ####[facility],[address] [place], [place] [address] Crystals LM Nom (Urine sed) NONE Normal [facility] Comment on above: Performed By: #### 2 72017 ####[facility],[address] [place], [place] [address] Epi Cells NONE Normal [facility] Comment on above: Performed By: #### 2 55234 ####[facility],[address] [place], [place] [address] Glucose Ql (U) NORM Normal NORMAL: NORMAL [facility] Comment on above: Performed By: #### 2 08020 ####[facility],[address] [place] [address] 88470 Hemoglobin Ql (U) 150 Abnormal NORMAL: NEGATIVE [facility] Comment on above: Performed By: #### 2 87544 ####[facility],[address] [place] [address] 72479 Ketone Negative Normal NORMAL: NEGATIVE [facility] Comment on above: Performed By: #### 2 46019 ####[facility],[address] [place] [address] 28215 Leukocytes Negative Normal NORMAL: NEGATIVE [facility] Comment on above: Performed By: #### 2 21811 ####[facility],[address] [place] [address] 64686 Mucous NONE Normal [facility] Comment on above: Performed By: #### 2 35338 ####[facility],[address] [place] [address] 68760 Nitrite Ql (U) Negative Normal NORMAL: NEGATIVE [facility] Comment on above: Performed By: #### 2 87522 ####[facility],[address] [place] [address] pH (U) 6 [pH] Normal NORMAL: 5.0-8.0 [facility] Comment on above: Performed By: #### 2 87117 ####[facility],[address] [place] [address] Protein Ql (U) 15 Abnormal NORMAL: NEGATIVE [facility] Comment on above: Performed By: #### 2 64917 ####[facility],[address] [place] [address] Rbc 5-10 Normal 0-3/hpf [facility] Comment on above: Performed By: #### 2 27426 ####[facility],[address] [place] [address] Sp [place] 1.010 Normal NORMAL: 1.010-1.030 [facility] Comment on above: Performed By: #### 2 28427 ####[facility],[address] [place] [address] Specimen Type Catheter Normal [facility] Comment on above: Performed By: #### 2 33499 ####[facility],[address] [place] [address] Urinalysis dipstick W Reflex Microscopic panel (U) SEE BELOW Normal [facility] Comment on above: Result Comment: MICR OSCOPIC Performed By: #### 2 11000 ####[facility],[address] [place] [address] Urobilinog NORM Normal NORMAL: NORMAL [facility] Comment on above: Performed By: #### 2 78234 ####[facility],[address] [place] [address] Wbc NONE Normal 0-5/hpf [facility] Comment on above: Performed By: #### 2 98732 ####[facility],[address] [place] [address] 58583 Yeast NONE Normal [facility] Comment on above: Performed By: #### 2 06759 ####[facility],[address] [place] [address] 97426 VITAMIN B-12on 07-26-2025 Cobalamin (Vitamin B12) [Mass/Vol] 1094 pg/mL High 193 - 986 [facility] Comment on above: Performed By: #### 2 51493 #### [facility],[address] [place] [address] 16463 VITAMIN D, 25 HYDROXYon 07-17 VitD 35.80 ng/mL Normal 30.00 - 100 [facility] Comment on above: Result Comment: 25-O [...] D2 Not Established Performed By: #### 2 02023 ####[facility],[address] [place] [address] 82072 CBC + DIFFon 07-25-2025 Baso # 0.03 x10EE3/UL Normal 0.00 - 0.10 [facility] Comment on above: Performed By: #### 2 04047 ####[facility],[address] [place] [address] 13317 Basophils/100 WBC (Bld) 0.3 % Normal 0.0 - 2.[address] [facility] Comment on above: Performed By: #### 2 88150 ####[facility],[address] [place] [address] 63173 CBC + DIFF Normal [facility] Comment on above: Result Comment: CBC- COMPLETE BLOOD COUNT Performed By: #### 2 41318 ####[facility] [place] [address] 42253 EO # 0.07 x10EE3/UL Normal 0.00 - 0.50 [facility] Comment on above: Performed By: #### 2 16297 ####[facility],[address] [place] [address] 15100 Eosinophils/100 WBC (Bld) 0.8 % Normal 0.0 - 7.0 [facility] Comment on above: Performed By: #### 2 96197 ####[facility],[address] [place] [address] Erythrocyte distribution width (RBC) [Ratio] 12.9 % Normal 12.0 - 15.6 [facility] Comment on above: Performed By: #### 2 64464 ####[facility],[address] [place] [address] Hematocrit (Bld) [Volume fraction] 41.0 % Normal 40.0 - 52.0 [facility] Comment on above: Performed By: #### 2 38253 ####[facility],[address] [place] [address] Hemoglobin (Bld) [Mass/Vol] 14.4 g/dL Normal 13.0 - 17.5 [facility] Comment on above: Performed By: #### 2 96119 ####[facility],[address] [place] [address] 00839 Lymph # 0.71 x10EE3/UL Low 0.80 - 2.80 [facility] Comment on above: Performed By: #### 2 84432 ####[facility],[address] [place] [address] 91822 Lymphocytes/100 WBC (Bld) 7.7 % Low 20.0 - 45.0 [facility] Comment on above: Performed By: #### 2 65305 ####[facility],[address] [place], [place] [address] MANUAL DIFF N/A Normal [facility] Comment on above: Performed By: #### 2 24547 ####[facility],[address] [place] [address] 81835 MCH (RBC) [Entitic mass] 34 pg High 27 - 33 [facility] Comment on above: Performed By: #### 2 46790 ####[facility],[address] [place] [address] 93066 MCHC 35 X10 3 Normal 32 - 36 [facility] Comment on above: Performed By: #### 2 88013 ####[facility],[address] [place] [address] 49853 MCV (RBC) [Entitic vol] 98 fL Normal 81 - [address] [facility] Comment on above: Performed By: #### 2 67367 ####[facility],[address] [place] [address] 08695 Tama # 1.47 x10EE3/UL High 0.20 - 1.00 [facility] Comment on above: Performed By: #### 2 14671 ####[facility],[address] [place] [address] 06678 MONOS % 15.9 % High 0.0 - 10.0 [facility] Comment on above: Performed By: #### 2 08956 ####[facility],[address] [place] [address] 44640 Morphology Yao (Bld) [Interp] N/A Normal [facility] Comment on above: Performed By: #### 2 48458 ####[facility],[address] [place] [address] 21055 Neut # 6.96 x10EE3/UL Normal 1.50 - 7.10 [facility] Comment on above: Performed By: #### 2 45208 ####[facility],[address] [place] [address] 84583 Neutrophils/100 WBC (Bld) 75.3 % Normal 46.0 - 76.0 [facility] Comment on above: Performed By: #### 2 45802 ####[facility],[address] [place] [address] 28083 PLATELET 118 x10EE3/UL Low 150 - 450 [facility] Comment on above: Performed By: #### 2 61188 ####[facility],[address] [place] [address] 17693 Platelet mean volume (Bld) [Entitic vol] 8.7 fL Normal 6.4 - 10.5 [facility] Comment on above: Result Comment: AUTO MATED DIFFERENTIAL Performed By: #### 2 88968 ####[facility],[address] [place] [address] 31647 RBC 4.19 x 10EE6/UL Low 4.50 - 6.00 [facility] Comment on above: Performed By: #### 2 60928 ####[facility],[address] [place] [address] 67599 WBC 9.2 x 10EE3/UL Normal 4.5 - 10.8 [facility] Comment on above: Performed By: #### 2 41237 ####[facility],[address] [place] [address] 04513 CMP with eGFRon 07-25-2025 AGE 84 years Normal [facility] Comment on above: Performed By: #### 2 17347 #### [facility],[address] [place] [address] 67971 Albumin [Mass/Vol] 2.9 g/dL Low 3.4 - 5.0 [facility] Comment on above: Performed By: #### 2 62702 #### [facility],[address] [place] [address] 77981 Albumin/Globulin [Mass ratio] 0.9 {ratio} Normal 0.9 - 1.6 [facility] Comment on above: Performed By: #### 2 79255 #### [facility],[address] [place] [address] 87088 ALK PHOS 86 U/L Normal 46 - 116 [facility] Comment on above: Performed By: #### 2 91231 #### [facility],[address] [place] [address] 24735 ALT [Catalytic activity/Vol] 18 U/L Normal 16 - 63 [facility] Comment on above: Performed By: #### 2 77283 #### [facility],[address] [place] [address] Anion gap [Moles/Vol] 12 mmol/L Normal 10 - 20 [facility] Comment on above: Performed By: #### 2 64363 #### [facility],[address] [place] [address] AST [Catalytic activity/Vol] 23 U/L Normal 15 - 37 [facility] Comment on above: Performed By: #### 2 08091 #### [facility],[address] [place] [address] B/C RATIO 25 ratio Normal 0 - 30 [facility] Comment on above: Performed By: #### 2 77623 #### [facility],[address] [place] [address] 32570 Bilirubin [Mass/Vol] 0.8 mg/dL Normal 0.2 - 1.0 [facility] Comment on above: Performed By: #### 2 25448 #### [facility],[address] [place] [address] 38486 Calcium [Mass/Vol] 8.8 mg/dL Normal 8.5 - 10.1 [facility] Comment on above: Performed By: #### 2 54758 #### [facility],[address] [place] [address] 39714 Chloride [Moles/Vol] 96 mmol/L Low 98 - 107 [facility] Comment on above: Performed By: #### 2 23174 #### [facility],[address] [place] [address] 36934 CMP with eGFR Normal [facility] Comment on above: Result Comment: COMP REHENSIVE METABOLIC PANEL Performed By: #### 2 58253 #### [facility],[address] [place] [address] 18329 CO2 [Moles/Vol] 25.6 mmol/L Normal 21.0 - 32.0 [facility] Comment on above: Performed By: #### 2 73730 #### [place] [id number] Creatinine [Mass/Vol] 1.16 mg/dL Normal 0.70 - 1.30 [place] Comment on above: Performed By: #### 2 97489 #### [facility],[address] [place] [address] 79640 eGFR 60 ML/MINUTE Normal 60 - 999 [facility] Comment on above: Performed By: #### 2 88271 #### [place] [id number] GFR/1.73 sq M.predicted among non-blacks MDRD (S/P/Bld) [Vol rate/Area] mL/min/{1.73_m2} Normal 60 - 999 [facility] Comment on above: Result Comment: ACCO RDING TO THE NATIONAL KIDNEY DISEASE EDUCATION PROGRAM(NKDE), A NORMAL eGFR IS A VALUE GREATER THAN OR EQUAL TO 60 ML/MIN/1.73 SQ METERS. CHRONIC KIDNEY DISEASE: <60mL/MIN/1.73 SQ METERS KIDNEY FAILURE: <15mL/MIN/1.73 SQ METERS THIS TEST SHOULD ONLY BE USED FOR PATIENTS 18 YEARS OF AGE AND OLDER. Performed By: #### 2 94300 #### [facility],[address] [place] [address] 95213 Globulin (S) [Mass/Vol] 3.3 g/dL Normal 1.5 - 3.[address] [facility] Comment on above: Performed By: #### 2 57003 #### [address] [address] Glucose [Mass/Vol] 106 mg/dL Normal 74 - 106 [facility] Comment on above: Performed By: #### 2 98369 #### [facility],[address] [place] [address] Potassium [Moles/Vol] 4.0 mmol/L Normal 3.5 - 5.1 [facility] Comment on above: Performed By: #### 2 99159 #### [facility],[address] [place] [address] Protein [Mass/Vol] 6.2 g/dL Low 6.4 - 8.2 [facility] Comment on above: Performed By: #### 2 09175 #### [facility],[address] [place] [address] Sodium [Moles/Vol] 130 mmol/L Low 136 - 145 [facility] Comment on above: Performed By: #### 2 85905 #### [facility],[address] [place] [address] Urea nitrogen [Mass/Vol] 29 mg/dL High 7 - 18 [facility] Comment on above: Performed By: #### 2 32044 #### [facility],[address] [place] [address] CORONAVIRUS (SARS) ANTIGEN T ESTon 07-25-2025 EXTERNAL QC DONE? YES Normal [facility] Comment on above: Performed By: #### 2 46781 #### [facility],[address] [place] [address] INTERNAL CONTROL PASS Normal [facility] Comment on above: Performed By: #### 2 36423 #### [facility],[address] [place] [address] SARS ANTIGEN Negative Normal NORMAL: NEGATIVE [facility] Comment on above: Performed By: #### 2 47860 #### [facility],[address] [place] [address] SEND TO ? NO Normal [facility] Comment on above: Result Comment: SARS -CoV-2 THIS TEST IS BEING USED UNDER THE FDA EUA PROCEDURE. THIS ASSAY HAS BEEN VALIDATED AT [facility] FOR USE WITH NASAL AND NASOPHARYNGEAL [...] PUBLIC HEALTH AUTHORITIES. Performed By: #### 2 48859 #### [facility],[address] [place], [place] [id number] CT BRAIN W/O CONTRASTon 11-0 CT BRAIN W/O CONTRAST [address] ? [place], [place] [address] ? Patient: SABIHA WEBBER Phone#: : 1940 Age: 84 Gender: M Pt. Type: ER Account: [id number] Location: 052 Ordering: DR. MADHAVI HARRISONDAJENISE Exam Date: 07/25/2025/9:50 Family Phys: VIRGIE SHAYURSZULA Charge Code: 142127 Physician: [place] Order #: [id number] Dose#: 52.3 mGy PROCEDURE: CT BRAIN WITHOUT CONTRAST COMPARISON: [facility], [place], BRAIN W/O CON, 07/03/2022, 17:58. INDICATIONS: [...] MD on 07/25/2025 at 10:34 Normal [facility] CT CHEST (PE PROTOCOL)on CT CHEST (PE PROTOCOL) [address] ? [place] [address] ? Patient: SABIHA WEBBER Phone#: : 1940 Age: 84 Gender: M Pt. Type: ER Account: [id number] Location: 052 Ordering: DR. MADHAVI SYED Exam Date: 07/25/2025/11:59 Family Phys: VIRGIE GILBERTSTEFFEN Charge Code: [id number] Physician: Mesa Order #: [id number] Dose#: 5.3 mGy PROCEDURE: CT CHEST WITH CONTRAST FOR PE COMPARISON: [facility], [place], CHEST W/O CON, 07/25/2025, 9:54. INDICATIONS: [...] 84 Gender: M Pt. Type: ER Account: [id number] Location: 2 Ordering: DR. MADHAVI SYED Exam Date: 07/25/2025/11:59 Family Phys: VIRGIE GAMBOA Charge Code: [id number] Physician: Mesa Order #: [id number] Dose#: 5.3 mGy CONCLUSION: 1. There is [...] MD on 07/25/2025 at 12:52 Normal [facility] CT CHEST W/O CONTRASTon 11-0 CT CHEST W/O CONTRAST [address] ? [place] [address] ? Patient: SABIHA WEBBER Phone#: : 1940 Age: 84 Gender: M Pt. Type: ER Account: [id number] Location: [facility] Ordering: DR. MADHAVI SYED Exam Date: 07/25/2025/9:54 Family Phys: VIRGIE GILBERTSTEFFEN Charge Code: [id number] Physician: Mesa Order #: [id number] Dose#: 4.1 mGy PROCEDURE: CT CHEST WITHOUT CONTRAST COMPARISON: [facility], CT, CHEST/ABDOMEN/PELVIS W CON, 07/03/2022, 18:13. INDICATIONS: [...] 84 Gender: M Pt. Type: ER Account: [id number] Location: [facility] Ordering: DR. MADHAVI SYED Exam Date: 07/25/2025/9:54 Family Phys: VIRGIE GAMBOA Charge Code: [id number] Physician: Mesa Order #: [id number] Dose#: 4.1 mGy Dictated by: Luly Zambrano MD on 07/25/2025 at 10:35 Approved by: Luly Zambrano MD on 07/25/2025 at 10:44 Normal [facility] D-DIMER, QUANTITATIVEon 11-0 D-DIMER QUANT 1013 ng/ml High 0 - 230 [facility] Comment on above: Performed By: #### 2 11614 ####[facility],[address] [place], [place] [address] D-DIMER, QUANTITATIVE Normal [facility] Comment on above: Result Comment: [place] T D-DIMER Performed By: #### 2 13023 ####[facility],[address] [place], [place] [address] INFLUENZA VIRUS RAPID A/Bon 07-25-2025 INFLUENZA VIRUS [...] FOR UP TO THREE DAYS. Normal [facility] Comment on above: Performed By: #### 2 73378 ####[facility],[address] [place] [address] 64385 LACTATEon 07-25-2025 Lactate [Moles/Vol] 1.7 mmol/L Normal 0.4 - 2.0 [facility] Comment on above: Performed By: #### 2 88793 #### [facility],[address] [place] [address] 49751 NT-proBNPon 07-25-2025 Natriuretic peptide B (Bld) [Mass/Vol] 316 pg/mL Normal 0 - 450 [facility] Comment on above: Performed By: #### 2 65050 ####[facility],[address] [place] [address] 22571 TROPONINon 07-25-2025 HS TROPONIN 24.5 pg/mL Normal 0.0 - 76.2 [facility] Comment on above: Performed By: #### 2 82071 #### [facility],[address] [place] [address] 87905 URINALYSISon 07-25-2025 Amorphous NONE Normal [facility] Comment on above: Performed By: #### 2 80932 #### [facility],[address] [place] [address] 10311 Bacteria NONE Normal [facility] Comment on above: Performed By: #### 2 73899 #### [facility],[address] [place] [address] 47815 Bilirubin Ql (U) Negative Normal NORMAL: NEGATIVE [facility] Comment on above: Performed By: #### 2 39774 #### [facility],[address] [place] [address] 00656 Casts NONE Normal [facility] Comment on above: Performed By: #### 2 17851 #### [facility],[address] [place] [address] Clarity (U) clear Normal NORMAL: CLEAR [facility] Comment on above: Performed By: #### 2 02263 #### [facility],[address] [place], [place] [address] Color (U) yellow Normal NORMAL: YELLOW [facility] Comment on above: Performed By: #### 2 96577 #### [facility],[address] [place], [place] [address] Crystals LM Nom (Urine sed) NONE Normal [facility] Comment on above: Performed By: #### 2 33872 #### [facility],[address] [place] [address] Epi Cells NONE Normal [facility] Comment on above: Performed By: #### 2 32019 #### [facility],[address] [place], [place] [address] Glucose Ql (U) NORM Normal NORMAL: NORMAL [facility] Comment on above: Performed By: #### 2 65179 #### [facility],[address] [place] [address] 50923 Hemoglobin Ql (U) 10 Abnormal NORMAL: NEGATIVE [facility] Comment on above: Performed By: #### 2 39032 #### [facility],[address] [place] [address] 18345 Ketone Negative Normal NORMAL: NEGATIVE [facility] Comment on above: Performed By: #### 2 56049 #### [facility],[address] [place] [address] 97817 Leukocytes Negative Normal NORMAL: NEGATIVE [facility] Comment on above: Performed By: #### 2 70037 #### [facility],[address] [place] [address] 56668 Mucous NONE Normal [facility] Comment on above: Performed By: #### 2 97798 #### [facility],[address] [place] [address] 66933 Nitrite Ql (U) Negative Normal NORMAL: NEGATIVE [facility] Comment on above: Performed By: #### 2 58455 #### [facility],[address] [place] [address] pH (U) 5 [pH] Normal NORMAL: 5.0-8.0 [facility] Comment on above: Performed By: #### 2 97071 #### [facility],[address] [place] [address] Protein Ql (U) 30 Abnormal NORMAL: NEGATIVE [facility] Comment on above: Performed By: #### 2 41365 #### [facility],[address] [place] [address] Rbc 0-5 Normal 0-3/hpf [facility] Comment on above: Performed By: #### 2 79235 #### [facility],[address] [place] [address] Sp [place] 1.015 Normal NORMAL: 1.010-1.030 [facility] Comment on above: Performed By: #### 2 16322 #### [facility],[address] [place] [address] Specimen Type R Normal [facility] Comment on above: Performed By: #### 2 21626 #### [facility],[address] [place] [address] Urinalysis dipstick W Reflex Microscopic panel (U) SEE BELOW Normal [facility] Comment on above: Result Comment: MICR OSCOPIC Performed By: #### 2 92075 #### [facility],[address] [place] [address] Urobilinog NORM Normal NORMAL: NORMAL [facility] Comment on above: Performed By: #### 2 57898 #### [facility],[address] [place] [address] Wbc NONE Normal 0-5/hpf [facility] Comment on above: Performed By: #### 2 05497 #### [facility],[address] [place] [address] 45546 Yeast NONE Normal [facility] Comment on above: Performed By: #### 2 13751 #### [facility],[address] [place], [place] [address] CBC + DIFFon 07-01-2025 Baso # 0.02 x10EE3/UL Normal 0.00 - 0.10 [facility] Comment on above: Performed By: #### 2 92008 #### [facility],[address] [place] [address] 01068 Basophils/100 WBC (Bld) 0.3 % Normal 0.0 - 2.[address] [facility] Comment on above: Performed By: #### 2 59351 #### [facility],[address] [place] [address] CBC + DIFF Normal [facility] Comment on above: Result Comment: CBC- COMPLETE BLOOD COUNT Performed By: #### 2 28421 #### [facility],[address] [place] [address] EO # 0.06 x10EE3/UL Normal 0.00 - 0.50 [facility] Comment on above: Performed By: #### 2 51746 #### [facility],[address] [place], [place] [address] Eosinophils/100 WBC (Bld) 0.8 % Normal 0.0 - 7.0 [facility] Comment on above: Performed By: #### 2 82377 #### [facility],[address] [place] [address] Erythrocyte distribution width (RBC) [Ratio] 13.1 % Normal 12.0 - 15.6 [facility] Comment on above: Performed By: #### 2 95316 #### [facility],[address] [place] [address] Hematocrit (Bld) [Volume fraction] 43.0 % Normal 40.0 - 52.0 [facility] Comment on above: Performed By: #### 2 45480 #### [facility],[address] [place] [address] 90409 Hemoglobin (Bld) [Mass/Vol] 14.5 g/dL Normal 13.0 - 17.5 [facility] Comment on above: Performed By: #### 2 89665 #### [facility],[address] [place] [address] 86983 Lymph # 0.74 x10EE3/UL Low 0.80 - 2.80 [facility] Comment on above: Performed By: #### 2 25346 #### [facility],[address] [place] [address] 19901 Lymphocytes/100 WBC (Bld) 9.2 % Low 20.0 - 45.0 [facility] Comment on above: Performed By: #### 2 22409 #### [facility],[address] [place] [address] 70766 MANUAL DIFF N/A Normal [facility] Comment on above: Performed By: #### 2 19136 #### [facility],[address] [place] [address] 57557 MCH (RBC) [Entitic mass] 34 pg High 27 - 33 [facility] Comment on above: Performed By: #### 2 04048 #### [facility],[address] [place] [address] 28591 MCHC 34 X10 3 Normal 32 - 36 [facility] Comment on above: Performed By: #### 2 43015 #### [facility],[address] [place] [address] 95879 MCV (RBC) [Entitic vol] 100 fL High 81 - [address] [facility] Comment on above: Performed By: #### 2 71511 #### [facility],[address] [place] [address] 88207 Tama # 0.68 x10EE3/UL Normal 0.20 - 1.00 [facility] Comment on above: Performed By: #### 2 85858 #### [facility],[address] [place] [address] 64160 MONOS % 8.4 % Normal 0.0 - 10.0 [facility] Comment on above: Performed By: #### 2 06155 #### [facility],[address] [place] [address] 55608 Morphology Yao (Bld) [Interp] N/A Normal [facility] Comment on above: Performed By: #### 2 95095 #### [facility],[address] [place] [address] 26108 Neut # 6.57 x10EE3/UL Normal 1.50 - 7.10 [facility] Comment on above: Performed By: #### 2 08882 #### [facility],[address] [place] [address] 28916 Neutrophils/100 WBC (Bld) 81.4 % High 46.0 - 76.0 [facility] Comment on above: Performed By: #### 2 87290 #### [facility],[address] [place] [address] 26178 PLATELET 168 x10EE3/UL Normal 150 - 450 [facility] Comment on above: Performed By: #### 2 35362 #### [facility],[address] [place] [address] 91952 Platelet mean volume (Bld) [Entitic vol] 8.7 fL Normal 6.4 - 10.5 [facility] Comment on above: Result Comment: AUTO MATED DIFFERENTIAL Performed By: #### 2 36553 #### [facility],[address] [place] [address] 99676 RBC 4.29 x 10EE6/UL Low 4.50 - 6.00 [facility] Comment on above: Performed By: #### 2 73496 #### [facility],[address] [place] [address] 28401 WBC 8.1 x 10EE3/UL Normal 4.5 - 10.8 [facility] Comment on above: Performed By: #### 2 24858 #### [facility],[address] [place] [address] 07279 CMP with eGFRon 07-01-2025 AGE 84 years Normal [facility] Comment on above: Performed By: #### 2 10821 ####[facility],[address] [place] [address] 03292 Albumin [Mass/Vol] 3.3 g/dL Low 3.4 - 5.0 [facility] Comment on above: Performed By: #### 2 55309 ####[facility],[address] [place] [address] 79993 Albumin/Globulin [Mass ratio] 1.1 {ratio} Normal 0.9 - 1.6 [facility] Comment on above: Performed By: #### 2 04608 ####[facility],[address] [place] [address] 15732 ALK PHOS 119 U/L High 46 - 116 [facility] Comment on above: Performed By: #### 2 56257 ####[facility],[address] [place] [address] 31609 ALT [Catalytic activity/Vol] 26 U/L Normal 16 - 63 [facility] Comment on above: Performed By: #### 2 02198 ####[facility],[address] [place] [address] 48663 Anion gap [Moles/Vol] 9 mmol/L Low 10 - 20 [facility] Comment on above: Performed By: #### 2 38015 ####[facility],[address] [place] [address] 11210 AST [Catalytic activity/Vol] 20 U/L Normal 15 - 37 [facility] Comment on above: Performed By: #### 2 12799 ####[facility],[address] [place] [address] 06606 B/C RATIO 24 ratio Normal 0 - 30 [facility] Comment on above: Performed By: #### 2 40925 ####[facility],[address] [place] [address] 25753 Bilirubin [Mass/Vol] 0.8 mg/dL Normal 0.2 - 1.0 [facility] Comment on above: Performed By: #### 2 92887 ####[facility],[address] [place] [address] 22250 Calcium [Mass/Vol] 9.1 mg/dL Normal 8.5 - 10.1 [facility] Comment on above: Performed By: #### 2 61931 ####[facility],[address] [place] [address] 28879 Chloride [Moles/Vol] 106 mmol/L Normal 98 - 107 [facility] Comment on above: Performed By: #### 2 12211 ####[facility],[address] [place], [place] [address] CMP with eGFR Normal [facility] Comment on above: Result Comment: COMP REHENSIVE METABOLIC PANEL Performed By: #### 2 10521 ####[facility],[address] [place] [address] 06309 CO2 [Moles/Vol] 29.2 mmol/L Normal 21.0 - 32.0 [facility] Comment on above: Performed By: #### 2 90496 ####[facility],[address] [place] [address] 88698 Creatinine [Mass/Vol] 0.87 mg/dL Normal 0.70 - 1.30 [place] Comment on above: Performed By: #### 2 73539 ####[facility],[address] [place] [address] 31783 GFR/1.73 sq M.predicted among non-blacks MDRD (S/P/Bld) [Vol rate/Area] mL/min/{1.73_m2} Normal 60 - 999 [facility] Comment on above: Performed By: #### 2 34174 ####[facility],[address] [place] [address] Result Comment: ACCO RDING TO THE NATIONAL KIDNEY DISEASE EDUCATION PROGRAM(NKDE), A NORMAL eGFR IS A VALUE GREATER THAN OR EQUAL TO 60 ML/MIN/1.73 SQ METERS. CHRONIC KIDNEY DISEASE: <60mL/MIN/1.73 SQ METERS KIDNEY FAILURE: <15mL/MIN/1.73 SQ METERS THIS TEST SHOULD ONLY BE USED FOR PATIENTS 18 YEARS OF AGE AND OLDER. Globulin (S) [Mass/Vol] 3.1 g/dL Normal 1.5 - 3.[address] [facility] Comment on above: Performed By: #### 2 40791 ####[place] [address] Glucose [Mass/Vol] 92 mg/dL Normal 74 - 106 [facility] Comment on above: Performed By: #### 2 95545 ####[facility],[address] [place] [address] Potassium [Moles/Vol] 4.6 mmol/L Normal 3.5 - 5.1 [facility] Comment on above: Performed By: #### 2 33060 ####[facility],[address] [place], [place] [address] Protein [Mass/Vol] 6.4 g/dL Normal 6.4 - 8.2 [facility] Comment on above: Performed By: #### 2 74686 ####[facility],[address] [place] [address] 13134 Sodium [Moles/Vol] 140 mmol/L Normal 136 - 145 [facility] Comment on above: Performed By: #### 2 07436 ####[address] [address] Urea nitrogen [Mass/Vol] 21 mg/dL High 7 - 18 [facility] Comment on above: Performed By: #### 2 74563 ####[facility],[address] [place] [address] 84035 LIPID PROFILEon 07-01-2025 Cholesterol [Mass/Vol] 104 mg/dL Normal 0 - 240 [place] Comment on above: Performed By: #### 2 05961 ####[facility],[address] [place] [address] 78005 Cholesterol in HDL [Mass/Vol] 60 mg/dL Normal 40 - 60 [facility] Comment on above: Performed By: #### 2 02467 ####[facility],[address] [place] [address] 85146 Cholesterol in LDL [Mass/Vol] 40 mg/dL Normal 0 - 129 [facility] Comment on above: Performed By: #### 2 41473 ####[facility],[address] [place] [address] 79808 Cholesterol.total/Beatrice sterol in HDL [Mass ratio] 1.7 {ratio} Normal 0.0 - 5.0 [facility] Comment on above: Performed By: #### 2 50420 ####[facility],[address] [place] [address] 37057 Lipid 1996 panel Normal [facility] Comment on above: Result Comment: LIPI D PROFILE Performed By: #### 2 70865 ####[facility],[address] [place] [address] 99285 Triglyceride [Mass/Vol] 22 mg/dL Normal 0 - [address] [facility] Comment on above: Performed By: #### 2 03351 ####[facility],[address] [place] [address] 46480 MR/BMS.Ancelmo 06-09-2025 MR/BMS.[facility] [address] [place] [address]. [address] [place] [address] 199731 OFFICE VISIT Date of Service: 06/09/25 MR#: [id number] Acct: [id number] Name: SABIHA WEBBER Rep #: [id number] : 1940 Provider: Dr. Blake Gonzalez MD Age/Sex: 84/M Location: [facility].BVS Status: Signed Intake Vital Signs 06/09/25 16:10 [...] nose nor (more content not included)... Normal [facility] Carotid Duplex Ultrasoundon 04-26-2025 Carotid Duplex Ultrasound [facility] [place] [address] [place] [address] Carotid Duplex Ultrasound 04/26/25 1255 MR#: [id number] Acct: [id number] Name: SABIHA WEBBER Rep #: [id number] : 1940 84 From: Blake Gonzalez MD [...] the left vertebral artery. Procedure Carotid Duplex 83331. This is a Carotid Duplex examination using [...] Referring Physician: Cody Delaney Performed By: Hoa Taegue Israel 04/26/25 1608 Date Blake Gonzalez MD CC: TATY Maciel; No Primary Care Physician Date Dictated: 04/26/25 1255 Date Transcribed: 04/26/25 1608 [employer] Principal: Signed Normal [facility] Duplex ultrasound of carotid artery reportOrdered By: Blake Gonzalez on 04-26-2025 Study report [facility] [address] [place] [address] Carotid Duplex Ultrasound 04/26/25 1255 MR#: [id number] Acct: [id number] Name: SABIHA WEBBER Rep #:[id number] : 1940 84 From: Blake Lynn Attending Dr: TATY Maciel Stat us: REG CLI Ordering Dr: Reanna Diaz Date: Location: [facility] Sex: M C Admitted: Reason For Study [...] the left vertebral artery. Procedure Carotid Duplex 48271. This is a Carotid Duplex examination using [...] Date Dictated: 04/26/25 125 Date Transcribed: 04/26/251607 [employer] Principal: Signed [facility] Work Phone: CBC + DIFFon 04-08-2025 Baso # 0.02 x10EE3/UL Normal 0.00 - 0.10 [facility] Comment on above: Performed By: #### 2 65482 #### [address] [address] Basophils/100 WBC (Bld) 0.3 % Normal 0.0 - 2.[address] [facility] Comment on above: Performed By: #### 2 42175 #### [facility],[address] [place] [address] 16837 CBC + DIFF Normal [facility] Comment on above: Result Comment: CBC- COMPLETE BLOOD COUNT Performed By: #### 2 07260 #### [facility],[address] [place] [address] 28896 EO # 0.07 x10EE3/UL Normal 0.00 - 0.50 [facility] Comment on above: Performed By: #### 2 50056 #### [facility],[address] [place] [address] 85195 Eosinophils/100 WBC (Bld) 1.2 % Normal 0.0 - 7.0 [facility] Comment on above: Performed By: #### 2 19484 #### [facility],[address] [place] [address] Erythrocyte distribution width (RBC) [Ratio] 13.5 % Normal 12.0 - 15.6 [facility] Comment on above: Performed By: #### 2 42469 #### [facility],[address] [place] [address] Hematocrit (Bld) [Volume fraction] 41.4 % Normal 40.0 - 52.0 [facility] Comment on above: Performed By: #### 2 02291 #### [facility],[address] [place] [address] Hemoglobin (Bld) [Mass/Vol] 14.4 g/dL Normal 13.0 - 17.5 [facility] Comment on above: Performed By: #### 2 10865 #### [facility],[address] [place] [address] Lymph # 1.04 x10EE3/UL Normal 0.80 - 2.80 [facility] Comment on above: Performed By: #### 2 62195 #### [facility],[address] [place], [place] [address] Lymphocytes/100 WBC (Bld) 16.9 % Low 20.0 - 45.0 [facility] Comment on above: Performed By: #### 2 62046 #### [facility],[address] [place], [place] [address] MANUAL DIFF N/A Normal [facility] Comment on above: Performed By: #### 2 68842 #### [place] [id number] MCH (RBC) [Entitic mass] 35 pg High 27 - 33 [facility] Comment on above: Performed By: #### 2 58742 #### [place] [address] MCHC 35 X10 3 Normal 32 - 36 [facility] Comment on above: Performed By: #### 2 15482 #### [facility],[address] [place] [address] 37391 MCV (RBC) [Entitic vol] 100 fL High 81 - 98 [facility] Comment on above: Performed By: #### 2 08176 #### [facility],[address] [place] [address] 47352 Tama # 0.66 x10EE3/UL Normal 0.20 - 1.00 [facility] Comment on above: Performed By: #### 2 16376 #### [facility],[address] [place] [address] 90543 MONOS % 10.8 % High 0.0 - 10.0 [facility] Comment on above: Performed By: #### 2 09803 #### [facility],[address] [place], [place] [address] Morphology Yao (Bld) [Interp] N/A Normal [facility] Comment on above: Performed By: #### 2 07598 #### [facility],[address] [place] [address] 27890 Neut # 4.36 x10EE3/UL Normal 1.50 - 7.10 [facility] Comment on above: Performed By: #### 2 54171 #### [facility],[address] [place] [address] 65655 Neutrophils/100 WBC (Bld) 70.8 % Normal 46.0 - 76.0 [facility] Comment on above: Performed By: #### 2 68949 #### [facility],[address] [place] [address] 34184 PLATELET 186 x10EE3/UL Normal 150 - 450 [facility] Comment on above: Performed By: #### 2 43989 #### [facility],[address] [place] [address] 87146 Platelet mean volume (Bld) [Entitic vol] 9.1 fL Normal 6.4 - 10.5 [facility] Comment on above: Result Comment: AUTO MATED DIFFERENTIAL Performed By: #### 2 13724 #### [facility],[address] [place] [address] 04335 RBC 4.14 x 10EE6/UL Low 4.50 - 6.00 [facility] Comment on above: Performed By: #### 2 95681 #### [facility],[address] [place] [address] 62525 WBC 6.2 x 10EE3/UL Normal 4.5 - 10.8 [facility] Comment on above: Performed By: #### 2 65180 #### [facility],[address] [place] [address] 14770 CMP with eGFRon 04-08-2025 AGE 84 years Normal [facility] Comment on above: Performed By: #### 2 42692 ####[facility],[address] [place] [address] 69917 Albumin [Mass/Vol] 3.5 g/dL Normal 3.4 - 5.0 [facility] Comment on above: Performed By: #### 2 79249 ####[facility],[address] [place] [address] 27600 Albumin/Globulin [Mass ratio] 1.0 {ratio} Normal 0.9 - 1.6 [facility] Comment on above: Performed By: #### 2 07748 ####[facility],[address] [place] [address] 30472 ALK PHOS 118 U/L High 46 - 116 [facility] Comment on above: Performed By: #### 2 81222 ####[facility],[address] [place] [address] 95234 ALT [Catalytic activity/Vol] 42 U/L Normal 16 - 63 [facility] Comment on above: Performed By: #### 2 61231 ####[facility],[address] [place] [address] 39882 Anion gap [Moles/Vol] 11 mmol/L Normal 10 - 20 [facility] Comment on above: Performed By: #### 2 96319 ####[facility],[address] [place] [address] 75360 AST [Catalytic activity/Vol] 25 U/L Normal 15 - 37 [facility] Comment on above: Performed By: #### 2 19162 ####[facility],[address] [place] [address] 54114 B/C RATIO 30 ratio Normal 0 - 30 [facility] Comment on above: Performed By: #### 2 00855 ####[facility],[address] [place] [address] 80899 Bilirubin [Mass/Vol] 0.7 mg/dL Normal 0.2 - 1.0 [facility] Comment on above: Performed By: #### 2 47332 ####[facility],[address] [place] [address] 18239 Calcium [Mass/Vol] 9.1 mg/dL Normal 8.5 - 10.1 [facility] Comment on above: Performed By: #### 2 04888 ####[facility],[address] [place] [address] 22953 Chloride [Moles/Vol] 108 mmol/L High 98 - 107 [facility] Comment on above: Performed By: #### 2 90544 ####[facility],[address] [place] [address] 34853 CMP with eGFR Normal [facility] Comment on above: Result Comment: COMP REHENSIVE METABOLIC PANEL Performed By: #### 2 83435 ####[facility],[address] [place] [address] 22460 CO2 [Moles/Vol] 27.3 mmol/L Normal 21.0 - 32.0 [facility] Comment on above: Performed By: #### 2 60776 ####[facility],[address] [place] [address] 64711 Creatinine [Mass/Vol] 1.23 mg/dL Normal 0.70 - 1.30 [place] Comment on above: Performed By: #### 2 96980 ####[facility],[address] [place] [address] 34311 eGFR 56 ML/MINUTE Low 60 - 999 [facility] Comment on above: Performed By: #### 2 82161 ####[facility],[address] [place] [address] 33578 GFR/1.73 sq M.predicted among non-blacks MDRD (S/P/Bld) [Vol rate/Area] mL/min/{1.73_m2} Normal 60 - 999 [facility] Comment on above: Result Comment: ACCO RDING TO THE NATIONAL KIDNEY DISEASE EDUCATION PROGRAM(NKDE), A NORMAL eGFR IS A VALUE GREATER THAN OR EQUAL TO 60 ML/MIN/1.73 SQ METERS. CHRONIC KIDNEY DISEASE: <60mL/MIN/1.73 SQ METERS KIDNEY FAILURE: <15mL/MIN/1.73 SQ METERS THIS TEST SHOULD ONLY BE USED FOR PATIENTS 18 YEARS OF AGE AND OLDER. Performed By: #### 2 76225 ####[facility],[address] [place] [address] 94375 Globulin (S) [Mass/Vol] 3.6 g/dL Normal 1.5 - 3.[address] [facility] Comment on above: Performed By: #### 2 85039 ####[facility],[address] [place] [address] 96875 Glucose [Mass/Vol] 90 mg/dL Normal 74 - 106 [facility] Comment on above: Performed By: #### 2 73213 ####[facility],[address] [place] [address] 37372 Potassium [Moles/Vol] 4.6 mmol/L Normal 3.5 - 5.1 [facility] Comment on above: Performed By: #### 2 52512 ####[facility],[address] [place] [address] 67174 Protein [Mass/Vol] 7.1 g/dL Normal 6.4 - 8.2 [facility] Comment on above: Performed By: #### 2 13878 ####[facility],[address] [place] [address] 50531 Sodium [Moles/Vol] 142 mmol/L Normal 136 - 145 [facility] Comment on above: Performed By: #### 2 40241 ####[facility],[address] [place] [address] 56148 Urea nitrogen [Mass/Vol] 37 mg/dL High 7 - 18 [facility] Comment on above: Performed By: #### 2 56370 ####[facility],[address] [place] [address] 96688 CBC + DIFFon 01-13-2025 Baso # 0.01 x10EE3/UL Normal 0.00 - 0.10 [facility] Comment on above: Performed By: #### 2 82522 ####[facility],[address] [place] [address] 25682 Basophils/100 WBC (Bld) 0.1 % Normal 0.0 - 2.[address] [facility] Comment on above: Performed By: #### 2 47392 ####[facility],[address] [place] [address] 69267 CBC + DIFF Normal [facility] Comment on above: Result Comment: CBC- COMPLETE BLOOD COUNT Performed By: #### 2 79798 ####[facility],[address] [place] [address] 09123 EO # 0.03 x10EE3/UL Normal 0.00 - 0.50 [facility] Comment on above: Performed By: #### 2 47164 ####[facility],[address] [place] [address] 40028 Eosinophils/100 WBC (Bld) 0.5 % Normal 0.0 - 7.0 [facility] Comment on above: Performed By: #### 2 09100 ####[facility],[address] [place] [address] Erythrocyte distribution width (RBC) [Ratio] 13.1 % Normal 12.0 - 15.6 [facility] Comment on above: Performed By: #### 2 82526 ####[facility],[address] [place] [address] Hematocrit (Bld) [Volume fraction] 43.0 % Normal 40.0 - 52.0 [facility] Comment on above: Performed By: #### 2 16453 ####[facility],[address] [place] [address] Hemoglobin (Bld) [Mass/Vol] 14.5 g/dL Normal 13.0 - 17.5 [facility] Comment on above: Performed By: #### 2 98289 ####[place] [address] Lymph # 0.87 x10EE3/UL Normal 0.80 - 2.80 [facility] Comment on above: Performed By: #### 2 99134 ####[place] [address] Lymphocytes/100 WBC (Bld) 15.4 % Low 20.0 - 45.0 [facility] Comment on above: Performed By: #### 2 71247 ####[place] [id number] MANUAL DIFF N/A Normal [facility] Comment on above: Performed By: #### 2 03139 ####[place] [id number] MCH (RBC) [Entitic mass] 35 pg High 27 - 33 [facility] Comment on above: Performed By: #### 2 80895 ####[place] [address]04 MCHC 34 X10 3 Normal 32 - 36 [facility] Comment on above: Performed By: #### 2 66440 ####[facility],[address] [place] [address] 00974 MCV (RBC) [Entitic vol] 103 fL High 81 - [address] [facility] Comment on above: Performed By: #### 2 66157 ####[facility],[address] [place] [address] 47510 Tama # 0.36 x10EE3/UL Normal 0.20 - 1.00 [facility] Comment on above: Performed By: #### 2 97129 ####[facility],[address] [place] [address] 31488 MONOS % 6.3 % Normal 0.0 - 10.0 [facility] Comment on above: Performed By: #### 2 74459 ####[facility],[address] [place], [place] [address] Morphology Yao (Bld) [Interp] N/A Normal [facility] Comment on above: Performed By: #### 2 09514 ####[facility],[address] [place], [place] [address] Neut # 4.41 x10EE3/UL Normal 1.50 - 7.10 [facility] Comment on above: Performed By: #### 2 78764 ####[facility],[address] [place] [address] 31364 Neutrophils/100 WBC (Bld) 77.7 % High 46.0 - 76.0 [facility] Comment on above: Performed By: #### 2 21080 ####[facility],[address] [place] [address] 56277 PLATELET 214 x10EE3/UL Normal 150 - 450 [facility] Comment on above: Performed By: #### 2 10500 ####[facility],[address] [place] [address] 26377 Platelet mean volume (Bld) [Entitic vol] 9.1 fL Normal 6.4 - 10.5 [facility] Comment on above: Result Comment: AUTO MATED DIFFERENTIAL Performed By: #### 2 65953 ####[facility],[address] [place] [address] 65837 RBC 4.19 x 10EE6/UL Low 4.50 - 6.00 [facility] Comment on above: Performed By: #### 2 62551 ####[facility],[address] [place] [address] 31209 WBC 5.7 x 10EE3/UL Normal 4.5 - 10.8 [facility] Comment on above: Performed By: #### 2 89679 ####[facility],[address] [place] [address] 95101 CMP with eGFRon 01-13-2025 AGE 84 years Normal [facility] Comment on above: Performed By: #### 2 30254 ####[facility],[address] [place] [address] 76765 Albumin [Mass/Vol] 3.6 g/dL Normal 3.4 - 5.0 [facility] Comment on above: Performed By: #### 2 64741 ####[facility],[address] [place] [address] 81867 Albumin/Globulin [Mass ratio] 1.0 {ratio} Normal 0.9 - 1.6 [facility] Comment on above: Performed By: #### 2 38600 ####[facility],[address] [place] [address] 11740 ALK PHOS 112 U/L Normal 46 - 116 [facility] Comment on above: Performed By: #### 2 03267 ####[facility],[address] [place] [address] 67666 ALT [Catalytic activity/Vol] 30 U/L Normal 16 - 63 [facility] Comment on above: Performed By: #### 2 37447 ####[facility],[address] [place] [address] 68588 Anion gap [Moles/Vol] 13 mmol/L Normal 10 - 20 [facility] Comment on above: Performed By: #### 2 77277 ####[facility],[address] [place] [address] 48251 AST [Catalytic activity/Vol] 22 U/L Normal 15 - 37 [facility] Comment on above: Performed By: #### 2 23518 ####[facility],[address] [place] [address] 46890 B/C RATIO 26 ratio Normal 0 - 30 [facility] Comment on above: Performed By: #### 2 78947 ####[facility],[address] [place] [address] 28094 Bilirubin [Mass/Vol] 0.7 mg/dL Normal 0.2 - 1.0 [facility] Comment on above: Performed By: #### 2 33177 ####[facility],[address] [place], [place] [address] Calcium [Mass/Vol] 9.6 mg/dL Normal 8.5 - 10.1 [facility] Comment on above: Performed By: #### 2 02968 ####[facility],[address] [place] [address] 38188 Chloride [Moles/Vol] 107 mmol/L Normal 98 - 107 [facility] Comment on above: Performed By: #### 2 54175 ####[facility],[address] [place] [address] 07749 CMP with eGFR Normal [facility] Comment on above: Result Comment: COMP REHENSIVE METABOLIC PANEL Performed By: #### 2 28716 ####[facility],[address] [place] [address] 39278 CO2 [Moles/Vol] 27.8 mmol/L Normal 21.0 - 32.0 [facility] Comment on above: Performed By: #### 2 34131 ####[facility],[address] [place] [address] 57403 Creatinine [Mass/Vol] 1.09 mg/dL Normal 0.70 - 1.30 [place] Comment on above: Performed By: #### 2 52278 ####[facility],[address] [place] [address] 66841 GFR/1.73 sq M.predicted among non-blacks MDRD (S/P/Bld) [Vol rate/Area] mL/min/{1.73_m2} Normal 60 - 999 [facility] Comment on above: Performed By: #### 2 96468 ####[facility],[address] [place] [address] Result Comment: ACCO RDING TO THE NATIONAL KIDNEY DISEASE EDUCATION PROGRAM(NKDE), A NORMAL eGFR IS A VALUE GREATER THAN OR EQUAL TO 60 ML/MIN/1.73 SQ METERS. CHRONIC KIDNEY DISEASE: <60mL/MIN/1.73 SQ METERS KIDNEY FAILURE: <15mL/MIN/1.73 SQ METERS THIS TEST SHOULD ONLY BE USED FOR PATIENTS 18 YEARS OF AGE AND OLDER. Globulin (S) [Mass/Vol] 3.5 g/dL Normal 1.5 - 3.[address] [facility] Comment on above: Performed By: #### 2 31319 ####[facility],[address] [place] [address] 26535 Glucose [Mass/Vol] 151 mg/dL High 74 - 106 [facility] Comment on above: Performed By: #### 2 69542 ####[facility],[address] [place] [address] 88799 Potassium [Moles/Vol] 4.3 mmol/L Normal 3.5 - 5.1 [facility] Comment on above: Performed By: #### 2 57685 ####[facility],[address] [place] [address] 18665 Protein [Mass/Vol] 7.1 g/dL Normal 6.4 - 8.2 [facility] Comment on above: Performed By: #### 2 54677 ####[facility],[address] [place] [address] 86163 Sodium [Moles/Vol] 143 mmol/L Normal 136 - 145 [facility] Comment on above: Performed By: #### 2 51119 ####[facility],[address] [place] [address] 45703 Urea nitrogen [Mass/Vol] 28 mg/dL High 7 - 18 [facility] Comment on above: Performed By: #### 2 11279 ####[facility],[address] [place] [address] 96444 T4, FREE [CCL]on 12-18-2024 Free T4 [Mass/Vol] 1.2 ng/dL Normal 0.9-1.7 [facility] Comment on above: Result Comment: [place] [address] Wojciech Fuentes III, M.D. [id number] Performed By: #### 2 96917 #### [facility],[address] [place] [address] 90385 CBC + DIFFon 12-17-2024 Baso # 0.02 x10EE3/UL Normal 0.00 - 0.10 [facility] Comment on above: Performed By: #### 2 13258 #### [facility],[address] [place] [address] 34589 Basophils/100 WBC (Bld) 0.3 % Normal 0.0 - 2.[address] [facility] Comment on above: Performed By: #### 2 92347 #### [facility],[address] [place] [address] 79793 CBC + DIFF Normal [facility] Comment on above: Result Comment: CBC- COMPLETE BLOOD COUNT Performed By: #### 2 27119 #### [facility],[address] [place] [address] 49522 EO # 0.02 x10EE3/UL Normal 0.00 - 0.50 [facility] Comment on above: Performed By: #### 2 61280 #### [place] [address] Eosinophils/100 WBC (Bld) 0.3 % Normal 0.0 - 7.0 [facility] Comment on above: Performed By: #### 2 96153 #### [facility],[address] [place] [address] Erythrocyte distribution width (RBC) [Ratio] 12.7 % Normal 12.0 - 15.6 [facility] Comment on above: Performed By: #### 2 26071 #### [place] [address] Hematocrit (Bld) [Volume fraction] 42.0 % Normal 40.0 - 52.0 [facility] Comment on above: Performed By: #### 2 33235 #### [place] [address] Hemoglobin (Bld) [Mass/Vol] 13.9 g/dL Normal 13.0 - 17.5 [facility] Comment on above: Performed By: #### 2 27873 #### [facility],[address] [place] [address] Lymph # 0.98 x10EE3/UL Normal 0.80 - 2.80 [facility] Comment on above: Performed By: #### 2 35254 #### [place] [id number] Lymphocytes/100 WBC (Bld) 16.9 % Low 20.0 - 45.0 [facility] Comment on above: Performed By: #### 2 14131 #### [place] [address] MANUAL DIFF N/A Normal [facility] Comment on above: Performed By: #### 2 28486 #### [place] [address] MCH (RBC) [Entitic mass] 34 pg High 27 - 33 [facility] Comment on above: Performed By: #### 2 27037 #### [address] [address] MCHC 33 X10 3 Normal 32 - 36 [facility] Comment on above: Performed By: #### 2 35195 #### [facility],[address] [place] [address] 89022 MCV (RBC) [Entitic vol] 102 fL High 81 - [address] [facility] Comment on above: Performed By: #### 2 83412 #### [facility],[address] [place] [address] 35362 Tama # 0.65 x10EE3/UL Normal 0.20 - 1.00 [facility] Comment on above: Performed By: #### 2 67881 #### [facility],[address] [place] [address] 83532 MONOS % 11.3 % High 0.0 - 10.0 [facility] Comment on above: Performed By: #### 2 73954 #### [facility],[address] [place] [address] 58032 Morphology Yao (Bld) [Interp] N/A Normal [facility] Comment on above: Performed By: #### 2 84364 #### [facility],[address] [place] [address] 44390 Neut # 4.10 x10EE3/UL Normal 1.50 - 7.10 [facility] Comment on above: Performed By: #### 2 48487 #### [address] [address] Neutrophils/100 WBC (Bld) 71.1 % Normal 46.0 - 76.0 [facility] Comment on above: Performed By: #### 2 83482 #### [place] [id number] PLATELET 190 x10EE3/UL Normal 150 - 450 [facility] Comment on above: Performed By: #### 2 82759 #### [facility],[address] [place] [address] 18799 Platelet mean volume (Bld) [Entitic vol] 8.7 fL Normal 6.4 - 10.5 [facility] Comment on above: Result Comment: AUTO MATED DIFFERENTIAL Performed By: #### 2 34763 #### [facility],[address] [place] [address] RBC 4.12 x 10EE6/UL Low 4.50 - 6.00 [facility] Comment on above: Performed By: #### 2 47305 #### [facility],[address] [place] [address] 00269 WBC 5.8 x 10EE3/UL Normal 4.5 - 10.8 [facility] Comment on above: Performed By: #### 2 44151 #### [facility],[address] [place] [address] 50758 CMP with eGFRon 12-17-2024 AGE 84 years Normal [facility] Comment on above: Performed By: #### 2 72620 ####[facility],[address] [place] [address] 30211 Albumin [Mass/Vol] 3.5 g/dL Normal 3.4 - 5.0 [facility] Comment on above: Performed By: #### 2 93994 ####[facility],[address] [place] [address] 35870 Albumin/Globulin [Mass ratio] 1.0 {ratio} Normal 0.9 - 1.6 [facility] Comment on above: Performed By: #### 2 35693 ####[facility],[address] [place] [address] 09340 ALK PHOS 117 U/L High 46 - 116 [facility] Comment on above: Performed By: #### 2 23106 ####[facility],[address] [place] [address] 15335 ALT [Catalytic activity/Vol] 28 U/L Normal 16 - 63 [facility] Comment on above: Performed By: #### 2 40253 ####[facility],[address] [place] [address] 30670 Anion gap [Moles/Vol] 11 mmol/L Normal 10 - 20 [facility] Comment on above: Performed By: #### 2 24297 ####[facility],[address] [place] [address] 18885 AST [Catalytic activity/Vol] 17 U/L Normal 15 - 37 [facility] Comment on above: Performed By: #### 2 10885 ####[facility],[address] [place] [address] 00260 B/C RATIO 22 ratio Normal 0 - 30 [facility] Comment on above: Performed By: #### 2 95211 ####[facility],[address] [place] [address] 67680 Bilirubin [Mass/Vol] 0.7 mg/dL Normal 0.2 - 1.0 [facility] Comment on above: Performed By: #### 2 03535 ####[facility],[address] [place] [address] 50219 Calcium [Mass/Vol] 9.0 mg/dL Normal 8.5 - 10.1 [facility] Comment on above: Performed By: #### 2 50967 ####[facility],[address] [place] [address] 11970 Chloride [Moles/Vol] 106 mmol/L Normal 98 - 107 [facility] Comment on above: Performed By: #### 2 47866 ####[facility],[address] [place] [address] 86151 CMP with eGFR Normal [facility] Comment on above: Result Comment: COMP REHENSIVE METABOLIC PANEL Performed By: #### 2 15023 ####[facility],[address] [place] [address] 03313 CO2 [Moles/Vol] 28.8 mmol/L Normal 21.0 - 32.0 [facility] Comment on above: Performed By: #### 2 85665 ####[facility],[address] [place] [address] 44599 Creatinine [Mass/Vol] 1.05 mg/dL Normal 0.70 - 1.30 [place] Comment on above: Performed By: #### 2 10129 ####[facility],[address] [place] [address] 03136 GFR/1.73 sq M.predicted among non-blacks MDRD (S/P/Bld) [Vol rate/Area] mL/min/{1.73_m2} Normal 60 - 999 [facility] Comment on above: Performed By: #### 2 45309 ####[facility],[address] [place] [address] Result Comment: ACCO RDING TO THE NATIONAL KIDNEY DISEASE EDUCATION PROGRAM(NKDE), A NORMAL eGFR IS A VALUE GREATER THAN OR EQUAL TO 60 ML/MIN/1.73 SQ METERS. CHRONIC KIDNEY DISEASE: <60mL/MIN/1.73 SQ METERS KIDNEY FAILURE: <15mL/MIN/1.73 SQ METERS THIS TEST SHOULD ONLY BE USED FOR PATIENTS 18 YEARS OF AGE AND OLDER. Globulin (S) [Mass/Vol] 3.4 g/dL Normal 1.5 - 3.[address] [facility] Comment on above: Performed By: #### 2 13339 ####[facility],[address] [place] [address] 05392 Glucose [Mass/Vol] 93 mg/dL Normal 74 - 106 [facility] Comment on above: Performed By: #### 2 06419 ####[facility],[address] [place] [address] 38385 Potassium [Moles/Vol] 4.3 mmol/L Normal 3.5 - 5.1 [facility] Comment on above: Performed By: #### 2 00341 ####[facility],[address] [place] [address] 27952 Protein [Mass/Vol] 6.9 g/dL Normal 6.4 - 8.2 [facility] Comment on above: Performed By: #### 2 28629 ####[facility],[address] [place] [address] 94858 Sodium [Moles/Vol] 141 mmol/L Normal 136 - 145 [facility] Comment on above: Performed By: #### 2 10636 ####[facility],[address] [place] [address] 97901 Urea nitrogen [Mass/Vol] 23 mg/dL High 7 - 18 [facility] Comment on above: Performed By: #### 2 80675 ####[facility],[address] [place] [address] 27072 LIPID PROFILEon 12-17-2024 Cholesterol [Mass/Vol] 158 mg/dL Normal 0 - 240 [place] Comment on above: Performed By: #### 2 69556 #### [facility],[address] [place] [address] 90685 Cholesterol in HDL [Mass/Vol] 72 mg/dL High 40 - 60 [facility] Comment on above: Performed By: #### 2 53163 #### [facility],[address] [place] [address] 57507 Cholesterol in LDL [Mass/Vol] 81 mg/dL Normal 0 - 129 [facility] Comment on above: Performed By: #### 2 92692 #### [facility],[address] [place] [address] 00238 Cholesterol.total/Beatrice sterol in HDL [Mass ratio] 2.2 {ratio} Normal 0.0 - 5.0 [facility] Comment on above: Performed By: #### 2 20104 #### [facility],[address] [place] [address] 99851 Lipid 1996 panel Normal [facility] Comment on above: Result Comment: LIPI D PROFILE Performed By: #### 2 30456 #### [facility],[address] [place] [address] 92543 Triglyceride [Mass/Vol] 27 mg/dL Normal 0 - [address] [facility] Comment on above: Performed By: #### 2 55025 #### [facility],[address] [place] [address] 63550 T4 Free SerPl-mCncon 025 Free T4 [Mass/Vol] 1.2 ng/dL Normal 0.9-1.7 [facility] Comment on above: Order Comment: Speci men Type: BLOOD SPECIMEN Ordering Facility: [facility] Address: [address] [place] [address] Performed By: #### 3 024-7 #### [facility] CLIA [id number] [address] [place] [address] [place] TSHon 12-17-2024 TSH Qn 3.05 m[IU]/L Normal 0.35 - 3.74 [facility] Comment on above: Performed By: #### 2 70573 #### [facility],[address] [place] [address] 15722 Carotid Duplex Ultrasoundon 10-28-2024 Carotid Duplex Ultrasound [facility] [address] [place] [address] Carotid Duplex Ultrasound 10/28/24 1300 MR#: [id number] Acct: [id number] Name: SABIHA WEBBER Rep #: [id number] : 1940 83 From: Blake Gonzalez MD [...] in left vertebral artery. Procedure Carotid Duplex 91474. This is a Carotid Duplex examination using [...] Date Dictated: 10/28/24 1300 Date Transcribed: 10/29/24940 [employer] Principal: Signed Normal [facility] CBC + DIFFon 10-16-2024 Baso # 0.03 x10EE3/UL Normal 0.00 - 0.10 [facility] Comment on above: Performed By: #### 2 83723 ####[facility],[address] [place] [address] 03187 Basophils/100 WBC (Bld) 0.3 % Normal 0.0 - 2.[address] [facility] Comment on above: Performed By: #### 2 19856 ####[facility],[address] [place] [address] 82630 CBC + DIFF Normal [facility] Comment on above: Result Comment: CBC- COMPLETE BLOOD COUNT Performed By: #### 2 76125 ####[facility],[address] [place] [address] 00546 EO # 0.06 x10EE3/UL Normal 0.00 - 0.50 [facility] Comment on above: Performed By: #### 2 75002 ####[facility],[address] [place] [address] 38506 Eosinophils/100 WBC (Bld) 0.6 % Normal 0.0 - 7.0 [facility] Comment on above: Performed By: #### 2 58684 ####[facility],[address] [place] [address] 96010 Erythrocyte distribution width (RBC) [Ratio] 13.6 % Normal 12.0 - 15.6 [facility] Comment on above: Performed By: #### 2 77654 ####[facility],[address] [place] [address] 96155 Hematocrit (Bld) [Volume fraction] 42.4 % Normal 40.0 - 52.0 [facility] Comment on above: Performed By: #### 2 68222 ####[facility],[address] [place] [address] 53700 Hemoglobin (Bld) [Mass/Vol] 14.1 g/dL Normal 13.0 - 17.5 [facility] Comment on above: Performed By: #### 2 55122 ####[facility],[address] [place] [address] 31250 Lymph # 0.70 x10EE3/UL Low 0.80 - 2.80 [facility] Comment on above: Performed By: #### 2 31793 ####[facility],[address] [place], [place] [address] Lymphocytes/100 WBC (Bld) 6.7 % Low 20.0 - 45.0 [facility] Comment on above: Performed By: #### 2 29805 ####[facility],[address] [place] [address] 79209 MANUAL DIFF N/A Normal [facility] Comment on above: Performed By: #### 2 35992 ####[facility],[address] [place] [address] 01280 MCH (RBC) [Entitic mass] 34 pg High 27 - 33 [facility] Comment on above: Performed By: #### 2 91857 ####[facility],[address] [place] [address] 51188 MCHC 33 X10 3 Normal 32 - 36 [facility] Comment on above: Performed By: #### 2 65650 ####[facility],[address] [place] [address] 77547 MCV (RBC) [Entitic vol] 104 fL High 81 - [address] [facility] Comment on above: Performed By: #### 2 11864 ####[facility],[address] [place] [address] 24165 Tama # 1.04 x10EE3/UL High 0.20 - 1.00 [facility] Comment on above: Performed By: #### 2 56269 ####[facility],[address] [place] [address] 47638 MONOS % 10.1 % High 0.0 - 10.0 [facility] Comment on above: Performed By: #### 2 64359 ####[facility],[address] [place] [address] 72038 Morphology Yao (Bld) [Interp] N/A Normal [facility] Comment on above: Performed By: #### 2 26420 ####[facility],[address] [place] [address] 46700 Neut # 8.55 x10EE3/UL High 1.50 - 7.10 [facility] Comment on above: Performed By: #### 2 89505 ####[facility],[address] [place] [address] 22274 Neutrophils/100 WBC (Bld) 82.4 % High 46.0 - 76.0 [facility] Comment on above: Performed By: #### 2 06904 ####[facility],[address] [place] [address] 47307 PLATELET 194 x10EE3/UL Normal 150 - 450 [facility] Comment on above: Performed By: #### 2 66800 ####[facility],[address] [place] [address] 72695 Platelet mean volume (Bld) [Entitic vol] 9.5 fL Normal 6.4 - 10.5 [facility] Comment on above: Result Comment: AUTO MATED DIFFERENTIAL Performed By: #### 2 17951 ####[facility],[address] [place] [address] 63713 RBC 4.10 x 10EE6/UL Low 4.50 - 6.00 [facility] Comment on above: Performed By: #### 2 35147 ####[facility],[address] [place] [address] 62639 WBC 10.4 x 10EE3/UL Normal 4.5 - 10.8 [facility] Comment on above: Performed By: #### 2 54178 ####[facility],[address] [place] [address] 17240 CMP with eGFRon 10-16-2024 AGE 83 years Normal [facility] Comment on above: Performed By: #### 2 67325 #### [facility],[address] [place] [address] 01173 Albumin [Mass/Vol] 3.3 g/dL Low 3.4 - 5.0 [facility] Comment on above: Performed By: #### 2 61571 #### [facility],[address] [place] [address] 60633 Albumin/Globulin [Mass ratio] 1.0 {ratio} Normal 0.9 - 1.6 [facility] Comment on above: Performed By: #### 2 52516 #### [facility],[address] [place] [address] 02782 ALK PHOS 100 U/L Normal 46 - 116 [facility] Comment on above: Performed By: #### 2 75264 #### [facility],[address] [place] [address] 28125 ALT [Catalytic activity/Vol] 36 U/L Normal 16 - 63 [facility] Comment on above: Performed By: #### 2 06036 #### [facility],[address] [place] [address] 61038 Anion gap [Moles/Vol] 7 mmol/L Low 10 - 20 [facility] Comment on above: Performed By: #### 2 98729 #### [facility],[address] [place] [address] 93830 AST [Catalytic activity/Vol] 21 U/L Normal 15 - 37 [facility] Comment on above: Performed By: #### 2 56437 #### [facility],[address] [place] [address] 55243 B/C RATIO 23 ratio Normal 0 - 30 [facility] Comment on above: Performed By: #### 2 16814 #### [facility],[address] [place] [address] 17449 Bilirubin [Mass/Vol] 0.6 mg/dL Normal 0.2 - 1.0 [facility] Comment on above: Performed By: #### 2 82391 #### [facility],[address] [place] [address] 61576 Calcium [Mass/Vol] 9.0 mg/dL Normal 8.5 - 10.1 [facility] Comment on above: Performed By: #### 2 66415 #### [facility],[address] [place] [address] 13821 Chloride [Moles/Vol] 107 mmol/L Normal 98 - 107 [facility] Comment on above: Performed By: #### 2 59747 #### [facility],[address] [place] [address] 10414 CMP with eGFR Normal [facility] Comment on above: Result Comment: COMP REHENSIVE METABOLIC PANEL Performed By: #### 2 87542 #### [facility],[address] [place] [address] 10655 CO2 [Moles/Vol] 30.8 mmol/L Normal 21.0 - 32.0 [facility] Comment on above: Performed By: #### 2 63054 #### [facility],[address] [place] [address] 82280 Creatinine [Mass/Vol] 1.11 mg/dL Normal 0.70 - 1.30 [place] Comment on above: Performed By: #### 2 67857 #### [facility],[address] [place] [address] 51505 GFR/1.73 sq M.predicted among non-blacks MDRD (S/P/Bld) [Vol rate/Area] mL/min/{1.73_m2} Normal 60 - 999 [facility] Comment on above: Performed By: #### 2 92423 #### [facility],[address] [place] [address] 14470 Result Comment: ACCO RDING TO THE NATIONAL KIDNEY DISEASE EDUCATION PROGRAM(NKDE), A NORMAL eGFR IS A VALUE GREATER THAN OR EQUAL TO 60 ML/MIN/1.73 SQ METERS. CHRONIC KIDNEY DISEASE: <60mL/MIN/1.73 SQ METERS KIDNEY FAILURE: <15mL/MIN/1.73 SQ METERS THIS TEST SHOULD ONLY BE USED FOR PATIENTS 18 YEARS OF AGE AND OLDER. Globulin (S) [Mass/Vol] 3.3 g/dL Normal 1.5 - 3.[address] [facility] Comment on above: Performed By: #### 2 73955 #### [facility],[address] [place] [address] 21110 Glucose [Mass/Vol] 86 mg/dL Normal 74 - 106 [facility] Comment on above: Performed By: #### 2 62657 #### [facility],[address] [place] [address] 38103 Potassium [Moles/Vol] 4.1 mmol/L Normal 3.5 - 5.1 [facility] Comment on above: Performed By: #### 2 77465 #### [facility],[address] [place] [address] 65778 Protein [Mass/Vol] 6.6 g/dL Normal 6.4 - 8.2 [facility] Comment on above: Performed By: #### 2 64557 #### [facility],[address] [place] [address] 79248 Sodium [Moles/Vol] 141 mmol/L Normal 136 - 145 [facility] Comment on above: Performed By: #### 2 42468 #### [facility],[address] [place] [address] 06320 Urea nitrogen [Mass/Vol] 25 mg/dL High 7 - 18 [facility] Comment on above: Performed By: #### 2 15043 #### [facility],[address] [place] [address] 13628 ED MED ADMINISTRATION DETAIL on 09-06-2024 ED MED ADMINISTRATION DETAIL Senior Network Engineer Medication Administration Record [address] [address] [id number] 09/06/2024 Patient: SABIHA WEBBER Sex: Male : [...] Edwards R.N. 1 of 1 Normal [facility] ED NURSES CLINICAL NOTEon ED NURSES CLINICAL NOTE Nurse Narrative Nurse Clinical Narrative [address] [address] [id number] 09/06/2024 Patient: SABIHA WEBBER Sex: Male : [...] Melendez R.N. 09/06/24 17:10:38 EST) Generated by [facility] 3 of 3 Normal [facility] ED ORDER SHEET (CPOE ONLY)on 09-06-2024 ED ORDER SHEET (CPOE ONLY) Order Sheet Order Sheet [address] [place] [address] [id number] 09/06/2024 Patient: SABIHA WEBBER Sex: Male : [...] 16:04 EST)] 2 of 2 Normal [facility] ED PHYSICIAN CLINICAL REPORT on 09-06-2024 ED PHYSICIAN CLINICAL REPORT Narrative Physician Clinical Narrative [address] [place] [address] [id number] 09/06/2024 Patient: SABIHA WEBBER Sex: Male : [...] Leblanc D.O. 09/06/24 16:04:18 EST) Generated by [facility] 3 of 3 Normal [facility] ED [facility] BILL 09-06-2024 ED [facility] [address] [place] [address] [id number] 09/06/2024 Patient: SABIHA WEBBER Sex: Male : 1940 Age: 83y Item Professional Category Description Facility Code Code Quantity Fee Total Nurse/E/M EMERGENCY 538577 1 $0.00 $0.00 DEPARTMENT VISIT MODERATE SEVERITY (01941-00) Grand Total $0.00 Providers Luis Leblanc D.O. [...] initial encounter 2 of 2 Normal [facility] ED VISIT SUMMARYon ED VISIT SUMMARY Visit Overview Visit Overview [address] [place] [address] [id number] 09/06/2024 Patient: SABIHA WEBBER Sex: Male : [...] BY STUMBLING 3 of 3 Normal [facility] ED VITALS FLOW SHEETon 09-06 ED VITALS FLOW SHEET Vitals Vital Sign Flow Sheet [address] [address] [id number] 09/06/2024 Patient: SABIHA WEBBER Sex: Male : 1940 Age: 83y Measurements Wt: 72.6 kg Measured Time BP MAP HR RR O2Sat ETCO2 Temp Pain GCS RTS 16:57 09/06/2024 124/79 94 72 16 96% 98.0 F 1 14:10 09/06/2024 143/81 102 87 18 95% 98.9 F 6 1 of 1 Normal [facility] FEMUR RT 2+ VIEWSon 09-06-20 FEMUR RT 2+ VIEWS [address] [address] Patient: SABIHA WEBBER Phone#: : 1940 Age: 83 Gender: M Pt. Type: ER Account: [id number] Location: 052 Ordering: LUIS LEBLANC Exam Date: 09/06/2024/14:47 Family Phys: BUTROS LATOUF Charge Code: 520408 Physician: Mesa Order #: [id number] Dose#: PROCEDURE: X-RAY FEMUR RT MIN 2 [...] MD on 09/06/2024 at 22:03 Normal [facility] KNEE COMPLETE RT MIN 4 VIEWS on 09-06-2024 KNEE COMPLETE RT MIN 4 VIEWS [place] [address] Patient: SABIHA WEBBER Phone#: : 1940 Age: 83 Gender: M Pt. Type: ER Account: [id number] Location: 052 Ordering: LUIS LEBLANC Exam Date: 09/06/2024/14:38 Family Phys: BUTROS LATOUF Charge Code: 730228 Physician: Mesa Order #: [id number] Dose#: PROCEDURE: X-RAY KNEE RT COMPLETE 4 VIEWS COMPARISON: None. INDICATIONS: Pain. FINDINGS: BONES: Normal. No significant arthropathy or acute abnormality. SOFT TISSUES: Negative. No visible soft tissue swelling. EFFUSION: None visible. OTHER: Negative. CONCLUSION: No acute disease. Dictated by: Luly Zambrano MD on 09/06/2024 at 22:01 Approved by: Luly Zambrano MD on 09/06/2024 at 22:01 Normal [facility] CBC + DIFFon 07-31-2024 Baso # 0.02 x10EE3/UL Normal 0.00 - 0.10 [facility] Comment on above: Performed By: #### 2 [id number] ####[facility],[address] [place] [address]896 Basophils/100 WBC (Bld) 0.3 % Normal 0.0 - 2.[address] [facility] Comment on above: Performed By: #### 2 02485 ####[facility],[address] [place] [address] CBC + DIFF Normal [facility] Comment on above: Result Comment: CBC- COMPLETE BLOOD COUNT Performed By: #### 2 97881 ####[facility],[address] [place] [address] EO # 0.03 x10EE3/UL Normal 0.00 - 0.50 [facility] Comment on above: Performed By: #### 2 23759 ####[facility],[address] [place] [address]87 Eosinophils/100 WBC (Bld) 0.5 % Normal 0.0 - 7.0 [facility] Comment on above: Performed By: #### 2 94043 ####[facility],[address] [place] [address] Erythrocyte distribution width (RBC) [Ratio] 13.6 % Normal 12.0 - 15.6 [facility] Comment on above: Performed By: #### 2 29106 ####[facility],[address] [place] [address] Hematocrit (Bld) [Volume fraction] 43.5 % Normal 40.0 - 52.0 [facility] Comment on above: Performed By: #### 2 80429 ####[facility],[address] [place] [address] 31575 Hemoglobin (Bld) [Mass/Vol] 14.7 g/dL Normal 13.0 - 17.5 [facility] Comment on above: Performed By: #### 2 24843 ####[facility],[address] [place], [place] [address] Lymph # 0.99 x10EE3/UL Normal 0.80 - 2.80 [facility] Comment on above: Performed By: #### 2 44110 ####[facility],[address] [place] [address]69 Lymphocytes/100 WBC (Bld) 13.4 % Low 20.0 - 45.0 [facility] Comment on above: Performed By: #### 2 48754 ####[facility],[address] [place] [address] MANUAL DIFF N/A Normal [facility] Comment on above: Performed By: #### 2 82676 ####[facility],[address] [place] [address] MCH (RBC) [Entitic mass] 34 pg High 27 - 33 [facility] Comment on above: Performed By: #### 2 64735 ####[facility],[address] [place] [address] MCHC 34 X10 3 Normal 32 - 36 [facility] Comment on above: Performed By: #### 2 58671 ####[facility],[address] [place], [place] [address] MCV (RBC) [Entitic vol] 100 fL High 81 - [address] [facility] Comment on above: Performed By: #### 2 22616 ####[facility],[address] [place] [address] Tama # 0.60 x10EE3/UL Normal 0.20 - 1.00 [facility] Comment on above: Performed By: #### 2 70717 ####[address] [address] MONOS % 8.0 % Normal 0.0 - 10.0 [facility] Comment on above: Performed By: #### 2 77455 ####[facility],[address] [place] [address]370 Morphology Yao (Bld) [Interp] N/A Normal [facility] Comment on above: Performed By: #### 2 95063 ####[facility],[address] [place] [address] Neut # 5.79 x10EE3/UL Normal 1.50 - 7.10 [facility] Comment on above: Performed By: #### 2 65414 ####[facility],[address] [place] [address]2367 Neutrophils/100 WBC (Bld) 77.9 % High 46.0 - 76.0 [facility] Comment on above: Performed By: #### 2 50066 ####[facility],[address] [place] [address] PLATELET 198 x10EE3/UL Normal 150 - 450 [facility] Comment on above: Performed By: #### 2 26917 ####[facility],[address] [place] [address]609 Platelet mean volume (Bld) [Entitic vol] 8.8 fL Normal 6.4 - 10.5 [facility] Comment on above: Result Comment: AUTO MATED DIFFERENTIAL Performed By: #### 2 71464 ####[facility],[address] [place] [address] 45223 RBC 4.33 x 10EE6/UL Low 4.50 - 6.00 [facility] Comment on above: Performed By: #### 2 70911 ####[facility],[address] [place] [address]355 WBC 7.4 x 10EE3/UL Normal 4.5 - 10.8 [facility] Comment on above: Performed By: #### 2 21718 ####[facility],[address] [place] [address] CMP with eGFRon 07-31-2024 AGE 83 years Normal [facility] Comment on above: Performed By: #### 2 43226 #### [facility],[address] [place] [address] 05367 Albumin [Mass/Vol] 3.7 g/dL Normal 3.4 - 5.0 [facility] Comment on above: Performed By: #### 2 54779 #### [facility],[address] [place] [address] Albumin/Globulin [Mass ratio] 1.0 {ratio} Normal 0.9 - 1.6 [facility] Comment on above: Performed By: #### 2 38349 #### [facility],[address] [place] [address] ALK PHOS 109 U/L Normal 46 - 116 [facility] Comment on above: Performed By: #### 2 80071 #### [facility],[address] [place] [address] ALT [Catalytic activity/Vol] 25 U/L Normal 16 - 63 [facility] Comment on above: Performed By: #### 2 31595 #### [facility],[address] [place] [address] Anion gap [Moles/Vol] 12 mmol/L Normal 10 - 20 [facility] Comment on above: Performed By: #### 2 63306 #### [facility],[address] [place] [address] AST [Catalytic activity/Vol] 23 U/L Normal 15 - 37 [facility] Comment on above: Performed By: #### 2 04945 #### [facility],[address] [place] [address] B/C RATIO 22 ratio Normal 0 - 30 [facility] Comment on above: Performed By: #### 2 84311 #### [facility],[address] [place] [address] Bilirubin [Mass/Vol] 0.7 mg/dL Normal 0.2 - 1.0 [facility] Comment on above: Performed By: #### 2 32795 #### [facility],[address] [place] [address]323 Calcium [Mass/Vol] 9.7 mg/dL Normal 8.5 - 10.1 [facility] Comment on above: Performed By: #### 2 31827 #### [facility],[address] [place], [place] [address] Chloride [Moles/Vol] 105 mmol/L Normal 98 - 107 [facility] Comment on above: Performed By: #### 2 36190 #### [facility],[address] [place] [address] CMP with eGFR Normal [facility] Comment on above: Result Comment: COMP REHENSIVE METABOLIC PANEL Performed By: #### 2 17799 #### [facility],[address] [place] [address] CO2 [Moles/Vol] 29.1 mmol/L Normal 21.0 - 32.0 [facility] Comment on above: Performed By: #### 2 05304 #### [facility],[address] [place], [place] [address] Creatinine [Mass/Vol] 1.22 mg/dL Normal 0.70 - 1.30 [place] Comment on above: Performed By: #### 2 96357 #### [facility],[address] [place] [address] eGFR 57 ML/MINUTE Low 60 - 999 [facility] Comment on above: Performed By: #### 2 72114 #### [facility],[address] [place], [place] [address] GFR/1.73 sq M.predicted among non-blacks MDRD (S/P/Bld) [Vol rate/Area] mL/min/{1.73_m2} Normal 60 - 999 [facility] Comment on above: Result Comment: ACCO RDING TO THE NATIONAL KIDNEY DISEASE EDUCATION PROGRAM(NKDE), A NORMAL eGFR IS A VALUE GREATER THAN OR EQUAL TO 60 ML/MIN/1.73 SQ METERS. CHRONIC KIDNEY DISEASE: <60mL/MIN/1.73 SQ METERS KIDNEY FAILURE: <15mL/MIN/1.73 SQ METERS THIS TEST SHOULD ONLY BE USED FOR PATIENTS 18 YEARS OF AGE AND OLDER. Performed By: #### 2 05459 #### [facility],[address] [place] [address] Globulin (S) [Mass/Vol] 3.7 g/dL Normal 1.5 - 3.[address] [facility] Comment on above: Performed By: #### 2 33574 #### [facility],[address] [place] [address]605 Glucose [Mass/Vol] 97 mg/dL Normal 74 - 106 [facility] Comment on above: Performed By: #### 2 42981 #### [facility],[address] [place] [address] Potassium [Moles/Vol] 4.9 mmol/L Normal 3.5 - 5.1 [facility] Comment on above: Performed By: #### 2 32196 #### [facility],[address] [place] [address] 50413 Protein [Mass/Vol] 7.4 g/dL Normal 6.4 - 8.2 [facility] Comment on above: Performed By: #### 2 79105 #### [facility],[address] [place] [address]351 Sodium [Moles/Vol] 141 mmol/L Normal 136 - 145 [facility] Comment on above: Performed By: #### 2 33403 #### [facility],[address] [place] [address] 09469 Urea nitrogen [Mass/Vol] 27 mg/dL High 7 - 18 [facility] Comment on above: Performed By: #### 2 82573 #### [facility],[address] [place] [address] 86127 No Panel InformationOrdered By: Blake Gonzalez on 09-26-2023 Estimated GFR (MDRD) Amer 76 mL/min >60 [facility] Comment on above: GFR Calc Estimated GFR (MDRD) Non-Af Amer 63 mL/min >60 [facility] Comment on above: Non- GFR Calc Serum or plasma creatinine m easurement (mass/volume)Ordered By: Blake Gonzalez on 09-26-2023 Creatinine [Mass/Vol] 1.18 mg/dL 0.70-1.30 [facility] Comment on above: The validity of the calculated GFR & GFRAA in patients over 70 years has not been determined. Clinical correlation is essential. Vital Signs Date Time Vital Sign Value Performing Clinician Facility 06-09-2025 16:10-0400 Body temperature 98.2 [degF] Reanna Diaz PA Work Phone: [facility] 06-09-2025 16:10-0400 Body weight 61.23 kg Reanna Diaz PA Work Phone: [facility] 06-09-2025 16:10-0400 Diastolic blood pressure 79 mm[Hg] Reanna Diaz PA Work Phone: [facility] 06-09-2025 16:10-0400 Heart rate 86 /min Reanna Diaz PA Work Phone: [facility] 06-09-2025 16:10-0400 Respiratory rate 16 /min Reanna Diaz PA Work Phone: [facility] 06-09-2025 16:10-0400 SaO2% (BldA) [Mass fraction] 95 % Reanna Diaz PA Work Phone: [facility] 06-09-2025 16:10-0400 Systolic blood pressure 144 mm[Hg] Reanna Diaz PA Work Phone: [facility] 12-20-2023 14:47-0400 Body temperature 97.39 [degF] Cristina Elias [employer]ER.MANAGER SERVICES Work Phone: [facility] 12-20-2023 14:47-0400 Body weight 62.9 kg Cristina Elias [employer].MANAGER SERVICES Work Phone: [facility] 12-20-2023 14:47-0400 Diastolic blood pressure 61 mm[Hg] Cristina Elias [employer]ER.MANAGER SERVICES Work Phone: [facility] 12-20-2023 14:47-0400 Heart rate 74 /min Cristina Praisler-Wood [employer]ER.MANAGER SERVICES Work Phone: [facility] 12-20-2023 14:47-0400 Respiratory rate 18 /min Cristina Praisler-Wood [employer]ER.MANAGER SERVICES Work Phone: [facility] 12-20-2023 14:47-0400 SaO2% (BldA) [Mass fraction] 99 % Cristina Praisler-Wood [employer]ER.MANAGER SERVICES Work Phone: [facility] 12-20-2023 14:47-0400 Systolic blood pressure 92 mm[Hg] Cristina Praisler-Wood [employer]ER.MANAGER SERVICES Work Phone: [facility] 09-26-2023 13:14-0500 Body temperature 98.4 [degF] Dr. Blake Gonzalez Work Phone: [facility] 09-26-2023 13:14-0500 Body weight 59.[address] Blake Gonzalez Work Phone: [facility] 09-26-2023 13:14-0500 Diastolic blood pressure 76 mm[Hg] Dr. Blake Gonzalez Work Phone: [facility] 09-26-2023 13:14-0500 Heart rate 74 /min Dr. Blake Gonzalez Work Phone: [facility] 09-26-2023 13:14-0500 Respiratory rate 16 /min Dr. Blake Gonzalez Work Phone: [facility] 09-26-2023 13:14-0500 SaO2% (BldA) [Mass fraction] 96 % Dr. Blake Gonzalez Work Phone: [facility] 09-26-2023 13:14-0500 Systolic blood pressure 148 mm[Hg] Dr. Blake Gonzalez Work Phone: [facility] Encounters Encounter Date Encounter Type Care Provider Facility Start: 07-25-2025 End: 07-27-2025 ambulatory VIRGIE [employer] SEFFENS [facility] Start: 07-01-2025 End: 07-01-2025 amb[facility] Start: 06-09-2025 End: 06-09-[address] Blake Gonzalez MD -[facility] Work Phone: Start: 06-09-2025 End: 06-09-2025 ambulatory Blake Gonzalez Facility:[facility] Start: 04-26-2025 Non-patient / Non-visit Dr. Blake yuen MD -[facility] Start: 04-26-2025 End: 04-26-2025 ambulatory Reanna POSEY Work Phone: -[facility] Start: 04-26-2025 End: 04-26-2025 Patient encounter procedure Reanna POSEY [facility] Work Phone: Start: 04-26-2025 End: 04-26-2025 ambulatory Reanna Diaz Facility:[facility] Start: 04-08-2025 End: 04-08-2025 ambulatory TOMEKA GOMES [facility] Start: 01-13-2025 End: 01-13-2025 ambulatory [facility] Start: 12-17-2024 End: 12-17-2024 ambulatory CODY DELANEY [facility] Start: 12-11-2024 ambulatory CODY DELANEY [facility] Start: 10-28-2024 ambulatory Cody Crowrobert Facility: [facility] Start: 10-28-2024 End: 10-28-2024 ambulatory Cody [facility] Facility:[facility] Start: 10-16-2024 End: 10-16-2024 ambulatory TOMEKA GOMES [facility] Start: 09-06-2024 End: 09-06-2024 Emergency department [facility] Start: 07-31-2024 End: 07-31-2024 ambulatory TOMEKA GOMES [facility] Start: 12-20-2023 End: 12-20-2023 Patient encounter procedure Cristina LevinOsvaldo ARMSTRONG Work Phone: [facility] Comment on above: Viral URI with cough (Primary Dx) Start: 10-11-2023 Non-patient / Non-visit Dr. Boo Delaney Work Phone: [facility] Start: 10-11-2023 End: 10-11-[address] Cody Delaney Work Phone: [facility] Work Phone: Start: 10-11-2023 End: 10-11-[address] Cody Delaney Work Phone: [facility]-Cardiovascular Services Work Phone: Start: 09-26-2023 End: 09-26-[address] Blake Gonzalez Work Phone: [facility] Work Phone: Start: 09-26-2023 End: 09-26-[address] Blake Gonzalez Work Phone: [facility]-Laboratory Work Phone: Start: 09-26-2023 End: 09-26-[address] Blake Gonzalez Work Phone: [facility] Work Phone: Start: 08-16-2023 Emergency department patient visit BRENNAN BARROS [facility] Procedures Date Procedure Procedure Detail Performing Clinician Start: 07-26-2025 Urinalysis TOMEKA ROSALVA ANKI Comment on above: Result Comment: URIN ALYSIS Performed By: #### 2 [id number] ####[facility],[address] [place] [address] Start: 07-25-2025 Urinalysis TOMEKA ROSALVA ANKI Comment on above: Result Comment: URIN ALYSIS Performed By: #### 2 89788 #### [facility],[address] [facility] [address] Start: 10-11-2023 CT angiography of he ad and neck Dr. Cody Delaney Work Phone: Plan of Treatment Date Care Activity Detail Author Start: 05-17-2024 Influenza vaccination Influenza Vaccine (Season Ended) [facility] Start: 09-16-2023 Advance Directive Discussion Advance Directive Discussion [facility] Start: 09-16-2023 Behavioral Health Screening Behavioral Health Screening [facility] Start: 05-17-2023 Covid-19 Vaccine ( season) Covid-19 Vaccine ( season) [facility] Start: 2005 Pneumococcal Vaccine: 65+ (1 of 1 - PCV) Pneumococcal Vaccine: 65+ (1 of 1 - PCV) [facility] Start: 2000 RSV Vaccine (1 - 1-dose 60+ series) RSV Vaccine (1 - 1-dose 60+ series) [facility] Start: 1990 Shingrix Vaccine (1 of 2) Shingrix Vaccine (1 of 2) [facility] Start: 1985 Diabetes Screening Diabetes Screening [facility] Start: 12-16-1959 Urine microalbumin profile DTaP,Tdap,Td Vaccine (1 - Tdap) [facility] Ankle brachial press ure index [facility] CTA Head vessels and Neck vessels W contrast IV [facility] US Carotid arteries [facility] Payers Date Payer Category Payer Self-pay 2023 Unknown [employer]IM[employer]IME [employer] HMO POS [id number] 2023-Present [phone] [address] [place] [address] O [id number] 2010 Unknown [id number] 1940 Unknown [id number] 1940 Unknown [id number] [id number] 1940 Unknown [id number] [id number] 1940 Unknown [id number] 2.16.840.1.478955.3.579.2.651 1940 Unknown [id number] 2.16.840.1.516378.3.579.2.651 1940 Unknown [id number] 2.16.840.1.426118.3.579.2.651 1940 Unknown [id number] 2.16.840.1.986078.3.579.2.651 1940 Unknown [id number] 2.16.840.1.774542.3.579.2.651 1940 Unknown [id number] [id number] Unknown [id number] [id number] Unknown [id number] 2.16.840.1.042311.3.579.2.462 Unknown [id number] 2.16.840.1.190782.3.579.2.462 Unknown [id number] [id number] Unknown [id number] [id number] Social History Date Type Detail Facility Start: [facility]-26-2023 [facility] Start: 1940 Sex Assigned At Male [facility] Start: 12-20-2023 [facility] tobacco [facility] Start: 12-20-2023 Tobacco use and exposure Smokeless tobacco non-user [facility] Start: 12-20-2023 History of Social function [facility] Start: 12-20-2023 Tobacco use panel [facility] Start: 1940 Sex Assigned At Not on file [facility] Start: 10-16-2023 Tobacco smoking stat us NHIS Current some day smoker [facility] Clinical Notes 12-20-2023 to 07-25-2025 Note [...] Locations *1: This test was performed at: [address], [facility] , [facility] 07-25-2025 Note . MICRO - Microbiology PROCEDURE: [...] Locations *1: This test was performed at: [address], [address] [place] [address] 06-09-2025 Progress note [facility] 06-09-2025 Progress note Note Date/Time June 09, 2025 4:29pm [facility] [address] [place] [address] OFFICE VISIT Date of Service: 06/09/25 MR#: [id number] Acct: [id number] Name: SABIHA WEBBER Rep #: [id number] : 1940 Provider: Dr. Blake Gonzalez MD Age/Sex: 84/M Location: [facility] Status: Signed Intake Vital Signs 06/09/25 16:10 [...] fallen in the past year?: Yes 06/10/25 9717 <Electronically signed by Blake Lynn> Date _ Blake Joel Signature: Date (if applicable) CC: ~ [facility] Work Phone: 1(609) 977-738912-22-2024 NoteDischarge Instructions Discharge Summary [address] [place] [address] [id number] 09/06/2024 Patient: SABIHA WEBBER Sex: Male : 1940 Age: 83y Thank you for visiting [facility]. 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 [address] [phone] 09/06/2024 Patient: SABIHA WEBBER Sex: Male : 1940 Age: 83y Thank you for visiting [facility]. You have been evaluated today by Luis [...] preventing falls. If (more content not included)...[facility]04-05-2024 Instructions* Patient Instructions* Cristina Elias APRN.MANAGER SERVICES - 12/20/2023 3:07 PM EDT ASSESSMENT/PLAN: 1. [...] fluids help open respiratory and sinus passages [place] [facility] [place] may offer relief of nasal and head [...] worse rather than better [facility] History of Present illness Narrative* Bess [...] testing, patient declined. CHERYL Brand TEACHING PROVIDER (Physician/PA/[employer] GRINDER) NOTE OF PERSONAL INVOLVEMENT IN CARE: I have personally seen and examined the patient and performed the medical decision-making components. I have reviewed the Advanced Practice Registered Nurse (PREC[employer] GRINDER) Student's documentation and verified the findings in the note as written. Any additions or changes are noted in bold/italics. Signature: Cristina Elias Date: 12/20/2023 Time: 3:21 PM [facility]* Diagnosis Onset Date Resolution Status Carotid stenosis, right confidential investigator rikki [facility] Work Phone: Evaluation note* Diagnosis Viral URI with cough- Primary Acute upper respiratory infections of unspecified site documented in this encounter [facility] noteNo assessment information availableWWyandot [facility] Work Phone: Evaluation note* Diagnosis Onset Date Resolution Status Admit Date Carotid stenosis, right chronic S eptember 2024 3:59pm [facility] Work Phone: Reason for referral (narrative)No reason for referral information availableWWyandot Memorial Hospital Work Phone: Summary Purpose Family [...] content) DATE CREATED AUTHOR 08/19/[address] [facility] DATE CREATED AUTHOR AUTHOR'S ORGANIZ ATION 12/20/2024 [facility] DATE CREATED AUTHOR AUTHOR'S ORGANIZ ATION 06/11/2025 [facility] DATE CREATED AUTHOR AUTHOR'S ORGANIZ ATION 07/26/2025 [facility] DATE CREATED AUTHOR AUTHOR'S ORGANIZ ATION 07/28/2025 [facility] Care Teams (unrecognized sec tion and content) [...] or prosecute any alcohol or drug abuse patient.[facility] Reason for Visit (unrecogniz ed section [...] BE BASED ON THE PRIMARY CLINICAL RECORDS. [employer] provides no warranty or guarantee of the accuracy or completeness of information in this document.
--- OUTSIDE RECORDS SUMMARY | 2025-09-04 18:12 | XMS RPT_ITS | CCD ---
Author Organization [facility] Care Team Providers Care Assistant Store Manager Operations Name Role Phone BRENNAN BARROS Attending Unavailable BRENNAN BARROS Primary Care Unavailable BRENNAN BARROS Admitting Unavailable Dr. Blake Gonzalez Attending Provider [phone] Cody Delaney Primary Care Provider Unavailable Primary Care Provider Unavailabl e Reanna Maldonado Attending Provider [phone] Reanna Maldonado Referring Provider [phone] Care Physician, No Primary Primary Care Provider Unavailable Dr. Blake Gonzalez MD Attending Provider [phone] Cody Delaney Primary Care Unavailable Diaz, Reanna [...] Referring Unava ilable Reanna Maldonado Attending Physician [phone] Care Physician, No Primary Primary Care [...] on above: Take 1 capsule by mo [facility] three times a day as needed for cough. folic acid 1 mg oral tablet (5 sources) Start: 4 take 2 tablets by mouth once folic acid 1 mg tablet Take 2 tablets by mouth every afternoon. 0 11/12/2023 Active Start: 02-25-2023 [facility] Folic Acid 1 mg tablet Active 1 mg PO TWICE A DAY February 25, 2023 12:00am Complies with drug therapy Comment on above: Take 2 tablets by mo [facility] every afternoon. 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) drug therapy; Translations: [Other senior care (current) drug therapy] Onset: 07-01-2025 Episodic Other [...] with eGFRon 07-27-2025 AGE 84 years Normal [facility] Comment on above: Performed By: #### 2 07075 ####[facility],[address] [place] [address] Anion gap [Moles/Vol] 9 mmol/L Low 10 - 20 [facility] Comment on above: Performed By: #### 2 11321 ####[facility],[address] [place] [address] BMP with eGFR Normal [facility] Comment on above: Result Comment: BASI C METABOLIC PANEL Performed By: #### 2 50789 ####[facility],[address] [place] [address] Calcium [Mass/Vol] 8.2 mg/dL Low 8.5 - 10.1 [facility] Comment on above: Performed By: #### 2 52315 ####[facility],[address] [place], [place] [address] Chloride [Moles/Vol] 99 mmol/L Normal 98 - 107 [facility] Comment on above: Performed By: #### 2 38617 ####[facility],[address] [place], [place] [address] CO2 [Moles/Vol] 26.1 mmol/L Normal 21.0 - 32.0 [facility] Comment on above: Performed By: #### 2 99174 ####[facility],[address] [place] [address] Creatinine [Mass/Vol] 0.96 mg/dL Normal 0.70 - 1.30 [facility] Comment on above: Performed By: #### 2 50225 ####[facility],[address] [place] [address] GFR/1.73 sq M.predicted among non-blacks MDRD (S/P/Bld) [Vol rate/Area] mL/min/{1.73_m2} Normal 60 - 999 [facility] Comment on above: Performed By: #### 2 35515 ####[facility],[address] [place] [address] Result Comment: ACCO RDING TO THE NATIONAL KIDNEY DISEASE EDUCATION PROGRAM(NKDE), A NORMAL eGFR IS A VALUE GREATER THAN OR EQUAL TO 60 ML/MIN/1.73 SQ METERS. CHRONIC KIDNEY DISEASE: <60mL/MIN/1.73 SQ METERS KIDNEY FAILURE: <15mL/MIN/1.73 SQ METERS THIS TEST SHOULD ONLY BE USED FOR PATIENTS 18 YEARS OF AGE AND OLDER. Glucose [Mass/Vol] 83 mg/dL Normal 74 - 106 [facility] Comment on above: Performed By: #### 2 81704 ####[facility],[address] [place], [place] [address] Potassium [Moles/Vol] 4.2 mmol/L Normal 3.5 - 5.1 [facility] Comment on above: Performed By: #### 2 97708 ####[facility],[address] [place] [address] 98746 Sodium [Moles/Vol] 130 mmol/L Low 136 - 145 [facility] Comment on above: Performed By: #### 2 69797 ####[facility],[address] [place] [address] 48372 Urea nitrogen [Mass/Vol] 20 mg/dL High 7 - 18 [facility] Comment on above: Performed By: #### 2 59416 ####[facility],[address] [place] [address] 58576 B12 FOLATE PANELon Cobalamin (Vitamin B12) [Mass/Vol] 1094 pg/mL High 193 - 986 [facility] Comment on above: Performed By: #### 2 62571 #### [facility],[address] [place] [address] 42353 FOLATES 37.7 ng/ml Normal 8.6 - 58.9 [facility] Comment on above: Performed By: #### 2 65349 #### [facility],[address] [place] [address] 73950 CBC + DIFFon 07-26-2025 Baso # 0.02 x10EE3/UL Normal 0.00 - 0.10 [facility] Comment on above: Performed By: #### 2 73356 ####[facility],[address] [place] [address] 32011 Basophils/100 WBC (Bld) 0.3 % Normal 0.0 - 2.0 [facility] Comment on above: Performed By: #### 2 27835 ####[facility],[address] [place] [address] 35767 CBC + DIFF Normal [facility] Comment on above: Result Comment: CBC- COMPLETE BLOOD COUNT Performed By: #### 2 54884 ####[facility],[address] [place] [address] 77365 EO # 0.08 x10EE3/UL Normal 0.00 - 0.50 [facility] Comment on above: Performed By: #### 2 50748 ####[place] [address] Eosinophils/100 WBC (Bld) 1.1 % Normal 0.0 - 7.0 [facility] Comment on above: Performed By: #### 2 93456 ####[facility],[address] [place] [address] Erythrocyte distribution width (RBC) [Ratio] 12.9 % Normal 12.0 - 15.6 [facility] Comment on above: Performed By: #### 2 73723 ####[place] [address] Hematocrit (Bld) [Volume fraction] 39.3 % Low 40.0 - 52.0 [facility] Comment on above: Performed By: #### 2 58624 ####[place] [address] Hemoglobin (Bld) [Mass/Vol] 13.6 g/dL Normal 13.0 - 17.5 [facility] Comment on above: Performed By: #### 2 22469 ####[place] [address] Lymph # 0.84 x10EE3/UL Normal 0.80 - 2.80 [facility] Comment on above: Performed By: #### 2 42190 ####[place] [id number] Lymphocytes/100 WBC (Bld) 11.1 % Low 20.0 - 45.0 [facility] Comment on above: Performed By: #### 2 40431 ####[place] [id number] MANUAL DIFF N/A Normal [facility] Comment on above: Performed By: #### 2 72770 ####[place] [address] MCH (RBC) [Entitic mass] 34 pg High 27 - 33 [facility] Comment on above: Performed By: #### 2 01116 ####[facility],[address] [place] [address] MCHC 35 X10 3 Normal 32 - 36 [facility] Comment on above: Performed By: #### 2 57885 ####[facility],[address] [place] [address] MCV (RBC) [Entitic vol] 98 fL Normal 81 - 98 [facility] Comment on above: Performed By: #### 2 15942 ####[facility],[address] [place] [address] [place] # 1.40 x10EE3/UL High 0.20 - 1.00 [facility] Comment on above: Performed By: #### 2 15330 ####[facility],[address] [place] [address] MONOS % 18.5 % High 0.0 - 10.0 [facility] Comment on above: Performed By: #### 2 50915 ####[facility],[address] [place] [address] Morphology Yao (Bld) [Interp] N/A Normal [facility] Comment on above: Performed By: #### 2 72173 ####[facility],[address] [place] [address] Neut # 5.23 x10EE3/UL Normal 1.50 - 7.10 [facility] Comment on above: Performed By: #### 2 47697 ####[facility],[address] [place] [address] Neutrophils/100 WBC (Bld) 69.0 % Normal 46.0 - 76.0 [facility] Comment on above: Performed By: #### 2 94414 ####[facility],[address] [place] [address] PLATELET 127 x10EE3/UL Low 150 - 450 [facility] Comment on above: Performed By: #### 2 41848 ####[facility],[address] [place] [address] 68531 Platelet mean volume (Bld) [Entitic vol] 8.6 fL Normal 6.4 - 10.5 [facility] Comment on above: Result Comment: AUTO MATED DIFFERENTIAL Performed By: #### 2 21362 ####[facility],[address] [place] [address] RBC 4.03 x 10EE6/UL Low 4.50 - 6.00 [facility] Comment on above: Performed By: #### 2 00937 ####[facility],[address] [place], [place] [address] WBC 7.6 x 10EE3/UL Normal 4.5 - 10.8 [facility] Comment on above: Performed By: #### 2 55228 ####[facility],[address] [place], [place] [address] CMP with eGFRon 07-26-2025 AGE 84 years Normal [facility] Comment on above: Performed By: #### 2 80006 ####[facility],[address] [place], [place] [address] Albumin [Mass/Vol] 2.5 g/dL Low 3.4 - 5.0 [facility] Comment on above: Performed By: #### 2 60829 ####[facility],[address] [place], [place] [address] Albumin/Globulin [Mass ratio] 0.9 {ratio} Normal 0.9 - 1.6 [facility] Comment on above: Performed By: #### 2 07430 ####[facility],[address] [place] [address] 12468 ALK PHOS 67 U/L Normal 46 - 116 [facility] Comment on above: Performed By: #### 2 00473 ####[facility],[address] [place] [address] 49419 ALT [Catalytic activity/Vol] 17 U/L Normal 16 - 63 [facility] Comment on above: Performed By: #### 2 95613 ####[facility],[address] [place] [address] 63445 Anion gap [Moles/Vol] 11 mmol/L Normal 10 - 20 [facility] Comment on above: Performed By: #### 2 67384 ####[facility],[address] [place] [address] 08077 AST [Catalytic activity/Vol] 23 U/L Normal 15 - 37 [facility] Comment on above: Performed By: #### 2 06765 ####[facility],[address] [place] [address] 01099 B/C RATIO 18 ratio Normal 0 - 30 [facility] Comment on above: Performed By: #### 2 65822 ####[facility],[address] [place] [address] 36131 Bilirubin [Mass/Vol] 0.7 mg/dL Normal 0.2 - 1.0 [facility] Comment on above: Performed By: #### 2 36405 ####[facility],[address] [place] [address] 91683 Calcium [Mass/Vol] 8.0 mg/dL Low 8.5 - 10.1 [facility] Comment on above: Performed By: #### 2 96331 ####[facility],[address] [place] [address] 98467 Chloride [Moles/Vol] 98 mmol/L Normal 98 - 107 [facility] Comment on above: Performed By: #### 2 00486 ####[facility],[address] [place] [address] 62878 CMP with eGFR Normal [facility] Comment on above: Result Comment: COMP REHENSIVE METABOLIC PANEL Performed By: #### 2 21357 ####[facility],[address] [place], [place] [address] CO2 [Moles/Vol] 23.5 mmol/L Normal 21.0 - 32.0 [facility] Comment on above: Performed By: #### 2 81493 ####[facility],[address] [place] [address] 62144 Creatinine [Mass/Vol] 0.95 mg/dL Normal 0.70 - 1.30 [facility] Comment on above: Performed By: #### 2 17687 ####[facility],[address] [place], [place] [address] GFR/1.73 sq M.predicted among non-blacks MDRD (S/P/Bld) [Vol rate/Area] mL/min/{1.73_m2} Normal 60 - 999 [facility] Comment on above: Performed By: #### 2 22991 ####[facility],[address] [place] [address] Result Comment: ACCO RDING TO THE NATIONAL KIDNEY DISEASE EDUCATION PROGRAM(NKDE), A NORMAL eGFR IS A VALUE GREATER THAN OR EQUAL TO 60 ML/MIN/1.73 SQ METERS. CHRONIC KIDNEY DISEASE: <60mL/MIN/1.73 SQ METERS KIDNEY FAILURE: <15mL/MIN/1.73 SQ METERS THIS TEST SHOULD ONLY BE USED FOR PATIENTS 18 YEARS OF AGE AND OLDER. Globulin (S) [Mass/Vol] 2.9 g/dL Normal 1.5 - 3.8 [facility] Comment on above: Performed By: #### 2 69947 ####[facility],[address] [place] [address] 94342 Glucose [Mass/Vol] 95 mg/dL Normal 74 - 106 [facility] Comment on above: Performed By: #### 2 44899 ####[facility],[address] [place] [address] 10062 Potassium [Moles/Vol] 3.9 mmol/L Normal 3.5 - 5.1 [facility] Comment on above: Performed By: #### 2 78439 ####[facility],[address] [place] [address] 19500 Protein [Mass/Vol] 5.4 g/dL Low 6.4 - 8.2 [facility] Comment on above: Performed By: #### 2 55943 ####[facility],[address] [place] [address] 84386 Sodium [Moles/Vol] 129 mmol/L Low 136 - 145 [facility] Comment on above: Performed By: #### 2 39928 ####[facility],[address] [place] [address] 53202 Urea nitrogen [Mass/Vol] 17 mg/dL Normal 7 - 18 [facility] Comment on above: Performed By: #### 2 39661 ####[facility],[address] [place] [address] 99743 TSH W/ REFLEX TO FREE T4on 1 09-25-2024 TSH Qn 3.54 m[IU]/L Normal 0.34 - 5.60 [facility] Comment on above: Performed By: #### 2 58034 #### [facility],[address] [place] [address] 35309 URINALYSISon 07-26-2025 Amorphous NONE Normal [facility] Comment on above: Performed By: #### 2 37514 ####[facility],[address] [place] [address] 74380 Bacteria TRACE Normal [facility] Comment on above: Performed By: #### 2 71400 ####[facility],[address] [place] [address] 70574 Bilirubin Ql (U) Negative Normal NORMAL: NEGATIVE [facility] Comment on above: Performed By: #### 2 46413 ####[facility],[address] [place] [address] 11513 Casts NONE Normal [facility] Comment on above: Performed By: #### 2 41748 ####[facility],[address] [place], [place] [address] Clarity (U) clear Normal NORMAL: CLEAR [facility] Comment on above: Performed By: #### 2 73523 ####[facility],[address] [place], [place] [address] Color (U) p.yel Normal NORMAL: YELLOW [facility] Comment on above: Performed By: #### 2 58880 ####[facility],[address] [place], [place] [address] Crystals LM Nom (Urine sed) NONE Normal [facility] Comment on above: Performed By: #### 2 88644 ####[facility],[address] [place], [place] [address] Epi Cells NONE Normal [facility] Comment on above: Performed By: #### 2 64266 ####[facility],[address] [place], [place] [address] Glucose Ql (U) NORM Normal NORMAL: NORMAL [facility] Comment on above: Performed By: #### 2 57170 ####[facility],[address] [place] [address] 44793 Hemoglobin Ql (U) 150 Abnormal NORMAL: NEGATIVE [facility] Comment on above: Performed By: #### 2 10271 ####[facility],[address] [place] [address] 01703 Ketone Negative Normal NORMAL: NEGATIVE [facility] Comment on above: Performed By: #### 2 89874 ####[facility],[address] [place] [address] 80560 Leukocytes Negative Normal NORMAL: NEGATIVE [facility] Comment on above: Performed By: #### 2 71597 ####[facility],[address] [place] [address] 99493 Mucous NONE Normal [facility] Comment on above: Performed By: #### 2 47070 ####[facility],[address] [place] [address] 00869 Nitrite Ql (U) Negative Normal NORMAL: NEGATIVE [facility] Comment on above: Performed By: #### 2 01810 ####[facility],[address] [place] [address] pH (U) 6 [pH] Normal NORMAL: 5.0-8.0 [facility] Comment on above: Performed By: #### 2 55962 ####[facility],[address] [place] [address] Protein Ql (U) 15 Abnormal NORMAL: NEGATIVE [facility] Comment on above: Performed By: #### 2 53644 ####[facility],[address] [place] [address] Rbc 5-10 Normal 0-3/hpf [facility] Comment on above: Performed By: #### 2 38050 ####[facility],[address] [place] [address] Sp [place] 1.010 Normal NORMAL: 1.010-1.030 [facility] Comment on above: Performed By: #### 2 01290 ####[facility],[address] [place] [address] Specimen Type Catheter Normal [facility] Comment on above: Performed By: #### 2 73594 ####[facility],[address] [place] [address] Urinalysis dipstick W Reflex Microscopic panel (U) SEE BELOW Normal [facility] Comment on above: Result Comment: MICR OSCOPIC Performed By: #### 2 39243 ####[facility],[address] [place] [address] Urobilinog NORM Normal NORMAL: NORMAL [facility] Comment on above: Performed By: #### 2 42541 ####[facility],[address] [place] [address] Wbc NONE Normal 0-5/hpf [facility] Comment on above: Performed By: #### 2 65268 ####[facility],[address] [place] [address] 14147 Yeast NONE Normal [facility] Comment on above: Performed By: #### 2 82791 ####[facility],[address] [place] [address] 31073 VITAMIN B-12on 07-26-2025 Cobalamin (Vitamin B12) [Mass/Vol] 1094 pg/mL High 193 - 986 [facility] Comment on above: Performed By: #### 2 12866 #### [facility],[address] [place] [address] 71956 VITAMIN D, 25 HYDROXYon 07-17 VitD 35.80 ng/mL Normal 30.00 - 100 [facility] Comment on above: Result Comment: 25-O HD3 [...] D2 Not Established Performed By: #### 2 77065 ####[facility],[address] [place] [address] 32614 CBC + DIFFon 07-25-2025 Baso # 0.03 x10EE3/UL Normal 0.00 - 0.10 [facility] Comment on above: Performed By: #### 2 39500 ####[facility],[address] [place] [address] 12447 Basophils/100 WBC (Bld) 0.3 % Normal 0.0 - 2.0 [facility] Comment on above: Performed By: #### 2 71762 ####[facility],[address] [place] [address] 77241 CBC + DIFF Normal [facility] Comment on above: Result Comment: CBC- COMPLETE BLOOD COUNT Performed By: #### 2 03823 ####[facility] [place] [address] 00505 EO # 0.07 x10EE3/UL Normal 0.00 - 0.50 [facility] Comment on above: Performed By: #### 2 79022 ####[facility],[address] [place] [address] 20499 Eosinophils/100 WBC (Bld) 0.8 % Normal 0.0 - 7.0 [facility] Comment on above: Performed By: #### 2 55309 ####[facility],[address] [place] [address] Erythrocyte distribution width (RBC) [Ratio] 12.9 % Normal 12.0 - 15.6 [facility] Comment on above: Performed By: #### 2 02272 ####[facility],[address] [place] [address] Hematocrit (Bld) [Volume fraction] 41.0 % Normal 40.0 - 52.0 [facility] Comment on above: Performed By: #### 2 30870 ####[facility],[address] [place] [address] Hemoglobin (Bld) [Mass/Vol] 14.4 g/dL Normal 13.0 - 17.5 [facility] Comment on above: Performed By: #### 2 00721 ####[facility],[address] [place] [address] 74267 Lymph # 0.71 x10EE3/UL Low 0.80 - 2.80 [facility] Comment on above: Performed By: #### 2 98092 ####[facility],[address] [place] [address] 72742 Lymphocytes/100 WBC (Bld) 7.7 % Low 20.0 - 45.0 [facility] Comment on above: Performed By: #### 2 94302 ####[facility],[address] [place], [place] [address] MANUAL DIFF N/A Normal [facility] Comment on above: Performed By: #### 2 81892 ####[facility],[address] [place] [address] 56616 MCH (RBC) [Entitic mass] 34 pg High 27 - 33 [facility] Comment on above: Performed By: #### 2 61801 ####[facility],[address] [place] [address] 95836 MCHC 35 X10 3 Normal 32 - 36 [facility] Comment on above: Performed By: #### 2 41049 ####[facility],[address] [place] [address] 33950 MCV (RBC) [Entitic vol] 98 fL Normal 81 - 98 [facility] Comment on above: Performed By: #### 2 43099 ####[facility],[address] [place] [address] 04869 [place] # 1.47 x10EE3/UL High 0.20 - 1.00 [facility] Comment on above: Performed By: #### 2 62417 ####[facility],[address] [place] [address] 80380 MONOS % 15.9 % High 0.0 - 10.0 [facility] Comment on above: Performed By: #### 2 44528 ####[facility],[address] [place] [address] 38175 Morphology Yao (Bld) [Interp] N/A Normal [facility] Comment on above: Performed By: #### 2 78346 ####[facility],[address] [place] [address] 81697 Neut # 6.96 x10EE3/UL Normal 1.50 - 7.10 [facility] Comment on above: Performed By: #### 2 24198 ####[facility],[address] [place] [address] 71003 Neutrophils/100 WBC (Bld) 75.3 % Normal 46.0 - 76.0 [facility] Comment on above: Performed By: #### 2 91949 ####[facility],[address] [place] [address] 94640 PLATELET 118 x10EE3/UL Low 150 - 450 [facility] Comment on above: Performed By: #### 2 06859 ####[facility],[address] [place] [address] 55505 Platelet mean volume (Bld) [Entitic vol] 8.7 fL Normal 6.4 - 10.5 [facility] Comment on above: Result Comment: AUTO MATED DIFFERENTIAL Performed By: #### 2 15147 ####[facility],[address] [place] [address] 03557 RBC 4.19 x 10EE6/UL Low 4.50 - 6.00 [facility] Comment on above: Performed By: #### 2 97083 ####[facility],[address] [place] [address] 82403 WBC 9.2 x 10EE3/UL Normal 4.5 - 10.8 [facility] Comment on above: Performed By: #### 2 75843 ####[facility],[address] [place] [address] 84534 CMP with eGFRon 07-25-2025 AGE 84 years Normal [facility] Comment on above: Performed By: #### 2 77001 #### [facility],[address] [place] [address] 93084 Albumin [Mass/Vol] 2.9 g/dL Low 3.4 - 5.0 [facility] Comment on above: Performed By: #### 2 93318 #### [facility],[address] [place] [address] 36872 Albumin/Globulin [Mass ratio] 0.9 {ratio} Normal 0.9 - 1.6 [facility] Comment on above: Performed By: #### 2 02290 #### [facility],[address] [place] [address] 88486 ALK PHOS 86 U/L Normal 46 - 116 [facility] Comment on above: Performed By: #### 2 46986 #### [facility],[address] [place] [address] 60106 ALT [Catalytic activity/Vol] 18 U/L Normal 16 - 63 [facility] Comment on above: Performed By: #### 2 22480 #### [facility],[address] [place] [address] Anion gap [Moles/Vol] 12 mmol/L Normal 10 - 20 [facility] Comment on above: Performed By: #### 2 39761 #### [facility] [facility],[address] [place] [address] AST [Catalytic activity/Vol] 23 U/L Normal 15 - 37 [facility] Comment on above: Performed By: #### 2 91101 #### [facility],[address] [place] [address] B/C RATIO 25 ratio Normal 0 - 30 [facility] Comment on above: Performed By: #### 2 95652 #### [facility],[address] [place] [address] 07926 Bilirubin [Mass/Vol] 0.8 mg/dL Normal 0.2 - 1.0 [facility] Comment on above: Performed By: #### 2 07242 #### [facility],[address] [place] [address] 11691 Calcium [Mass/Vol] 8.8 mg/dL Normal 8.5 - 10.1 [facility] Comment on above: Performed By: #### 2 82920 #### [facility],[address] [place] [address] 30193 Chloride [Moles/Vol] 96 mmol/L Low 98 - 107 [facility] Comment on above: Performed By: #### 2 46254 #### [facility],[address] [place] [address] 31530 CMP with eGFR Normal [facility] Comment on above: Result Comment: COMP REHENSIVE METABOLIC PANEL Performed By: #### 2 91550 #### [facility],[address] [place] [address] 25507 CO2 [Moles/Vol] 25.6 mmol/L Normal 21.0 - 32.0 [facility] Comment on above: Performed By: #### 2 21844 #### [place] [id number] Creatinine [Mass/Vol] 1.16 mg/dL Normal 0.70 - 1.30 [facility] Comment on above: Performed By: #### 2 19405 #### [facility],[address] [place] [address] 35545 eGFR 60 ML/MINUTE Normal 60 - 999 [facility] Comment on above: Performed By: #### 2 17000 #### [place] [id number] GFR/1.73 sq M.predicted among non-blacks MDRD (S/P/Bld) [Vol rate/Area] mL/min/{1.73_m2} Normal 60 - 999 [facility] Comment on above: Result Comment: ACCO RDING TO THE NATIONAL KIDNEY DISEASE EDUCATION PROGRAM(NKDE), A NORMAL eGFR IS A VALUE GREATER THAN OR EQUAL TO 60 ML/MIN/1.73 SQ METERS. CHRONIC KIDNEY DISEASE: <60mL/MIN/1.73 SQ METERS KIDNEY FAILURE: <15mL/MIN/1.73 SQ METERS THIS TEST SHOULD ONLY BE USED FOR PATIENTS 18 YEARS OF AGE AND OLDER. Performed By: #### 2 65362 #### [facility],[address] [place] [address] 58098 Globulin (S) [Mass/Vol] 3.3 g/dL Normal 1.5 - 3.8 [facility] Comment on above: Performed By: #### 2 94162 #### [address] [address] Glucose [Mass/Vol] 106 mg/dL Normal 74 - 106 [facility] Comment on above: Performed By: #### 2 53126 #### [facility],[address] [place] [address] Potassium [Moles/Vol] 4.0 mmol/L Normal 3.5 - 5.1 [facility] Comment on above: Performed By: #### 2 87996 #### [facility],[address] [place] [address] Protein [Mass/Vol] 6.2 g/dL Low 6.4 - 8.2 [facility] Comment on above: Performed By: #### 2 04902 #### [facility],[address] [place] [address] Sodium [Moles/Vol] 130 mmol/L Low 136 - 145 [facility] Comment on above: Performed By: #### 2 23904 #### [facility],[address] [place] [address] Urea nitrogen [Mass/Vol] 29 mg/dL High 7 - 18 [facility] Comment on above: Performed By: #### 2 17381 #### [facility],[address] [place] [address] CORONAVIRUS (SARS) ANTIGEN T ESTon 07-25-2025 EXTERNAL QC DONE? YES Normal [facility] Comment on above: Performed By: #### 2 13899 #### [facility],[address] [place] [address] INTERNAL CONTROL PASS Normal [facility] Comment on above: Performed By: #### 2 60821 #### [facility],[address] [place] [address] SARS ANTIGEN Negative Normal NORMAL: NEGATIVE [facility] Comment on above: Performed By: #### 2 18616 #### [facility],[address] [place] [address] SEND TO ? NO Normal [facility] Comment on above: Result Comment: SARS -CoV-2 THIS TEST IS BEING USED UNDER THE FDA EUA PROCEDURE. THIS ASSAY HAS BEEN VALIDATED AT [facility] FOR USE WITH NASAL AND [...] PUBLIC HEALTH AUTHORITIES. Performed By: #### 2 74207 #### [facility],[address] [place], [place] [address] CT BRAIN W/O CONTRASTon 11-0 CT BRAIN W/O CONTRAST [address] ? [place], [place] [address] ? Patient: SABIHA WEBBER Phone#: : 1940 Age: 84 Gender: M Pt. Type: ER Account: [id number] Location: 052 Ordering: DR. MADHAVI HARRISONDAJENISE Exam Date: 07/25/2025/9:50 Family Phys: VIRGIE SHAYURSZULA Charge Code: 419693 Physician: Lowndes Order #: [id number] Dose#: 52.3 mGy PROCEDURE: CT BRAIN WITHOUT CONTRAST COMPARISON: [facility], CT, BRAIN W/O CON, 07/03/2022, 17:58. [...] Zambrano MD on 07/25/2025 at 10:34 Normal [facility] CT CHEST (PE PROTOCOL)on CT CHEST (PE PROTOCOL) [address] ? [place] [address] ? Patient: SABIHA WEBBER Phone#: : 1940 Age: 84 Gender: M Pt. Type: ER Account: [id number] Location: 052 Ordering: DR. MADHAVI SYED Exam Date: 07/25/2025/11:59 Family Phys: VIRGIE GILBERTSTEFFEN Charge Code: 689007 Physician: Lowndes Order #: [id number] Dose#: 5.3 mGy PROCEDURE: CT CHEST WITH CONTRAST FOR PE COMPARISON: [facility], CT, CHEST W/O CON, 07/25/2025, 9:54. [...] 84 Gender: M Pt. Type: ER Account: [id number] Location: 2 Ordering: DR. MADHAVI SYED Exam Date: 07/25/2025/11:59 Family Phys: VIRGIE GAMBOA Charge Code: [id number] Physician: Lowndes Order #: [id number] Dose#: 5.3 mGy CONCLUSION: 1. There is [...] Zambrano MD on 07/25/2025 at 12:52 Normal [facility] CT CHEST W/O CONTRASTon 11-0 CT CHEST W/O CONTRAST [address] ? [place] [address] ? Patient: SABIHA WEBBER Phone#: : 1940 Age: 84 Gender: M Pt. Type: ER Account: [id number] Location: [facility] Ordering: DR. MADHAVI SYED Exam Date: 07/25/2025/9:54 Family Phys: VIRGIE GILBERTSTEFFEN Charge Code: [id number] Physician: Lowndes Order #: [id number] Dose#: 4.1 mGy PROCEDURE: CT CHEST WITHOUT CONTRAST COMPARISON: [facility], CT, CHEST/ABDOMEN/PELVIS W CON, 07/03/2022, 18:13. [...] 84 Gender: M Pt. Type: ER Account: [id number] Location: [facility] Ordering: DR. MADHAVI SYED Exam Date: 07/25/2025/9:54 Family Phys: VIRGIE GAMBOA Charge Code: [id number] Physician: Lowndes Order #: [id number] Dose#: 4.1 mGy Dictated by: Luly Zambrano MD on 07/25/2025 at 10:35 Approved by: Luly Zambrano MD on 07/25/2025 at 10:44 Normal [facility] D-DIMER, QUANTITATIVEon 11-0 D-DIMER QUANT 1013 ng/ml High 0 - 230 [facility] Comment on above: Performed By: #### 2 38092 ####[facility],[address] [place], [place] [address] D-DIMER, QUANTITATIVE Normal [facility] Comment on above: Result Comment: AUSTIN T D-DIMER Performed By: #### 2 28064 ####[facility],[address] [place], [place] [address] INFLUENZA VIRUS RAPID A/Bon 07-25-2025 INFLUENZA VIRUS [...] TESTS FOR UP TO THREE DAYS. Normal [facility] Comment on above: Performed By: #### 2 99478 ####[facility],[address] [place] [address] 99194 LACTATEon 07-25-2025 Lactate [Moles/Vol] 1.7 mmol/L Normal 0.4 - 2.0 [facility] Comment on above: Performed By: #### 2 16653 #### [facility],[address] [place] [address] 64290 NT-proBNPon 07-25-2025 Natriuretic peptide B (Bld) [Mass/Vol] 316 pg/mL Normal 0 - 450 [facility] Comment on above: Performed By: #### 2 74748 ####[facility],[address] [place] [address] 56115 TROPONINon 07-25-2025 HS TROPONIN 24.5 pg/mL Normal 0.0 - 76.2 [facility] Comment on above: Performed By: #### 2 04576 #### [facility],[address] [place] [address] 76198 URINALYSISon 07-25-2025 Amorphous NONE Normal [facility] Comment on above: Performed By: #### 2 56295 #### [facility],[address] [place] [address] 09583 Bacteria NONE Normal [facility] Comment on above: Performed By: #### 2 99762 #### [facility],[address] [place] [address] 36718 Bilirubin Ql (U) Negative Normal NORMAL: NEGATIVE [facility] Comment on above: Performed By: #### 2 01111 #### [facility],[address] [place] [address] 47774 Casts NONE Normal [facility] Comment on above: Performed By: #### 2 34564 #### [facility],[address] [place] [address] Clarity (U) clear Normal NORMAL: CLEAR [facility] Comment on above: Performed By: #### 2 84777 #### [facility],[address] [place], [place] [address] Color (U) yellow Normal NORMAL: YELLOW [facility] Comment on above: Performed By: #### 2 92947 #### [facility],[address] [place], [place] [address] Crystals LM Nom (Urine sed) NONE Normal [facility] Comment on above: Performed By: #### 2 32058 #### [facility],[address] [place] [address] Epi Cells NONE Normal [facility] Comment on above: Performed By: #### 2 39170 #### [facility],[address] [place], [place] [address] Glucose Ql (U) NORM Normal NORMAL: NORMAL [facility] Comment on above: Performed By: #### 2 17890 #### [facility],[address] [place] [address] 27340 Hemoglobin Ql (U) 10 Abnormal NORMAL: NEGATIVE [facility] Comment on above: Performed By: #### 2 24019 #### [facility],[address] [place] [address] 21366 Ketone Negative Normal NORMAL: NEGATIVE [facility] Comment on above: Performed By: #### 2 99114 #### [facility],[address] [place] [address] 42605 Leukocytes Negative Normal NORMAL: NEGATIVE [facility] Comment on above: Performed By: #### 2 07781 #### [facility],[address] [place] [address] 12659 Mucous NONE Normal [facility] Comment on above: Performed By: #### 2 32084 #### [facility],[address] [place] [address] 30514 Nitrite Ql (U) Negative Normal NORMAL: NEGATIVE [facility] Comment on above: Performed By: #### 2 24189 #### [facility],[address] [place] [address] pH (U) 5 [pH] Normal NORMAL: 5.0-8.0 [facility] Comment on above: Performed By: #### 2 47196 #### [facility],[address] [place] [address] Protein Ql (U) 30 Abnormal NORMAL: NEGATIVE [facility] Comment on above: Performed By: #### 2 03026 #### [facility],[address] [place] [address] Rbc 0-5 Normal 0-3/hpf [facility] Comment on above: Performed By: #### 2 49970 #### [facility],[address] [place] [address] Sp [place] 1.015 Normal NORMAL: 1.010-1.030 [facility] Comment on above: Performed By: #### 2 67551 #### [facility],[address] [place] [address] Specimen Type R Normal [facility] Comment on above: Performed By: #### 2 99658 #### [facility],[address] [place] [address] Urinalysis dipstick W Reflex Microscopic panel (U) SEE BELOW Normal [facility] Comment on above: Result Comment: MICR OSCOPIC Performed By: #### 2 04094 #### [facility],[address] [place] [address] Urobilinog NORM Normal NORMAL: NORMAL [facility] Comment on above: Performed By: #### 2 21622 #### [facility],[address] [place] [address] Wbc NONE Normal 0-5/hpf [facility] Comment on above: Performed By: #### 2 34111 #### [facility],[address] [place] [address] 88430 Yeast NONE Normal [facility] Comment on above: Performed By: #### 2 76141 #### [facility],[address] [place], [place] [address] CBC + DIFFon 07-01-2025 Baso # 0.02 x10EE3/UL Normal 0.00 - 0.10 [facility] Comment on above: Performed By: #### 2 62437 #### [facility],[address] [place] [address] 43024 Basophils/100 WBC (Bld) 0.3 % Normal 0.0 - 2.0 [facility] Comment on above: Performed By: #### 2 18157 #### [facility],[address] [place] [address] CBC + DIFF Normal [facility] Comment on above: Result Comment: CBC- COMPLETE BLOOD COUNT Performed By: #### 2 71394 #### [facility],[address] [place] [address] EO # 0.06 x10EE3/UL Normal 0.00 - 0.50 [facility] Comment on above: Performed By: #### 2 96829 #### [facility],[address] [place], [place] [address] Eosinophils/100 WBC (Bld) 0.8 % Normal 0.0 - 7.0 [facility] Comment on above: Performed By: #### 2 75725 #### [facility],[address] [place] [address] Erythrocyte distribution width (RBC) [Ratio] 13.1 % Normal 12.0 - 15.6 [facility] Comment on above: Performed By: #### 2 23420 #### [facility],[address] [place] [address] Hematocrit (Bld) [Volume fraction] 43.0 % Normal 40.0 - 52.0 [facility] Comment on above: Performed By: #### 2 50448 #### [facility],[address] [place] [address] 71025 Hemoglobin (Bld) [Mass/Vol] 14.5 g/dL Normal 13.0 - 17.5 [facility] Comment on above: Performed By: #### 2 06382 #### [facility],[address] [place] [address] 44233 Lymph # 0.74 x10EE3/UL Low 0.80 - 2.80 [facility] Comment on above: Performed By: #### 2 18058 #### [facility],[address] [place] [address] 67623 Lymphocytes/100 WBC (Bld) 9.2 % Low 20.0 - 45.0 [facility] Comment on above: Performed By: #### 2 71868 #### [facility],[address] [place] [address] 37258 MANUAL DIFF N/A Normal [facility] Comment on above: Performed By: #### 2 56315 #### [facility],[address] [place] [address] 10263 MCH (RBC) [Entitic mass] 34 pg High 27 - 33 [facility] Comment on above: Performed By: #### 2 33645 #### [facility],[address] [place] [address] 11150 MCHC 34 X10 3 Normal 32 - 36 [facility] Comment on above: Performed By: #### 2 16963 #### [facility],[address] [place] [address] 42342 MCV (RBC) [Entitic vol] 100 fL High 81 - 98 [facility] Comment on above: Performed By: #### 2 82313 #### [facility],[address] [place] [address] 46113 [place] # 0.68 x10EE3/UL Normal 0.20 - 1.00 [facility] Comment on above: Performed By: #### 2 26281 #### [facility],[address] [place] [address] 29334 MONOS % 8.4 % Normal 0.0 - 10.0 [facility] Comment on above: Performed By: #### 2 89933 #### [facility],[address] [place] [address] 64316 Morphology Yao (Bld) [Interp] N/A Normal [facility] Comment on above: Performed By: #### 2 94674 #### [facility],[address] [place] [address] Neut # 6.57 x10EE3/UL Normal 1.50 - 7.10 [facility] Comment on above: Performed By: #### 2 79230 #### [facility],[address] [place] [address] 08532 Neutrophils/100 WBC (Bld) 81.4 % High 46.0 - 76.0 [facility] Comment on above: Performed By: #### 2 25837 #### [facility],[address] [place] [address] 89481 PLATELET 168 x10EE3/UL Normal 150 - 450 [facility] Comment on above: Performed By: #### 2 26601 #### [facility],[address] [place] [address] 06463 Platelet mean volume (Bld) [Entitic vol] 8.7 fL Normal 6.4 - 10.5 [facility] Comment on above: Result Comment: AUTO MATED DIFFERENTIAL Performed By: #### 2 52662 #### [facility],[address] [place] [address] 61437 RBC 4.29 x 10EE6/UL Low 4.50 - 6.00 [facility] Comment on above: Performed By: #### 2 29492 #### [facility],[address] [place] [address] 22780 WBC 8.1 x 10EE3/UL Normal 4.5 - 10.8 [facility] Comment on above: Performed By: #### 2 98997 #### [facility],[address] [place] [address] 13051 CMP with eGFRon 07-01-2025 AGE 84 years Normal [facility] Comment on above: Performed By: #### 2 39390 ####[facility],[address] [place] [address] 07847 Albumin [Mass/Vol] 3.3 g/dL Low 3.4 - 5.0 [facility] Comment on above: Performed By: #### 2 33599 ####[facility],[address] [place] [address] 83247 Albumin/Globulin [Mass ratio] 1.1 {ratio} Normal 0.9 - 1.6 [facility] Comment on above: Performed By: #### 2 52008 ####[facility],[address] [place] [address] 96800 ALK PHOS 119 U/L High 46 - 116 [facility] Comment on above: Performed By: #### 2 45229 ####[facility],[address] [place] [address] 14539 ALT [Catalytic activity/Vol] 26 U/L Normal 16 - 63 [facility] Comment on above: Performed By: #### 2 26825 ####[facility],[address] [place] [address] 26876 Anion gap [Moles/Vol] 9 mmol/L Low 10 - 20 [facility] Comment on above: Performed By: #### 2 06709 ####[facility],[address] [place] [address] 36314 AST [Catalytic activity/Vol] 20 U/L Normal 15 - 37 [facility] Comment on above: Performed By: #### 2 72358 ####[facility],[address] [place] [address] 49287 B/C RATIO 24 ratio Normal 0 - 30 [facility] Comment on above: Performed By: #### 2 05076 ####[facility],[address] [place] [address] 84559 Bilirubin [Mass/Vol] 0.8 mg/dL Normal 0.2 - 1.0 [facility] Comment on above: Performed By: #### 2 37257 ####[facility],[address] [place] [address] 23602 Calcium [Mass/Vol] 9.1 mg/dL Normal 8.5 - 10.1 [facility] Comment on above: Performed By: #### 2 70641 ####[facility],[address] [place] [address] 55062 Chloride [Moles/Vol] 106 mmol/L Normal 98 - 107 [facility] Comment on above: Performed By: #### 2 44162 ####[facility],[address] [place], [place] [address] CMP with eGFR Normal [facility] Comment on above: Result Comment: COMP REHENSIVE METABOLIC PANEL Performed By: #### 2 61846 ####[facility],[address] [place] [address] 93935 CO2 [Moles/Vol] 29.2 mmol/L Normal 21.0 - 32.0 [facility] Comment on above: Performed By: #### 2 94241 ####[facility],[address] [place] [address] 28035 Creatinine [Mass/Vol] 0.87 mg/dL Normal 0.70 - 1.30 [facility] Comment on above: Performed By: #### 2 23834 ####[facility],[address] [place] [address] 86919 GFR/1.73 sq M.predicted among non-blacks MDRD (S/P/Bld) [Vol rate/Area] mL/min/{1.73_m2} Normal 60 - 999 [facility] Comment on above: Performed By: #### 2 86679 ####[facility],[address] [place] [address] Result Comment: ACCO RDING TO THE NATIONAL KIDNEY DISEASE EDUCATION PROGRAM(NKDE), A NORMAL eGFR IS A VALUE GREATER THAN OR EQUAL TO 60 ML/MIN/1.73 SQ METERS. CHRONIC KIDNEY DISEASE: <60mL/MIN/1.73 SQ METERS KIDNEY FAILURE: <15mL/MIN/1.73 SQ METERS THIS TEST SHOULD ONLY BE USED FOR PATIENTS 18 YEARS OF AGE AND OLDER. Globulin (S) [Mass/Vol] 3.1 g/dL Normal 1.5 - 3.8 [facility] Comment on above: Performed By: #### 2 96972 ####[place] [address] Glucose [Mass/Vol] 92 mg/dL Normal 74 - 106 [facility] Comment on above: Performed By: #### 2 58263 ####[facility],[address] [place] [address] Potassium [Moles/Vol] 4.6 mmol/L Normal 3.5 - 5.1 [facility] Comment on above: Performed By: #### 2 37382 ####[facility],[address] [place], [place] [address] Protein [Mass/Vol] 6.4 g/dL Normal 6.4 - 8.2 [facility] Comment on above: Performed By: #### 2 52016 ####[facility],[address] [place] [address] 41953 Sodium [Moles/Vol] 140 mmol/L Normal 136 - 145 [facility] Comment on above: Performed By: #### 2 61832 ####[address] [address] Urea nitrogen [Mass/Vol] 21 mg/dL High 7 - 18 [facility] Comment on above: Performed By: #### 2 32723 ####[facility],[address] [place] [address] 16726 LIPID PROFILEon 07-01-2025 Cholesterol [Mass/Vol] 104 mg/dL Normal 0 - 240 [facility] Comment on above: Performed By: #### 2 60698 ####[facility],[address] [place] [address] 55991 Cholesterol in HDL [Mass/Vol] 60 mg/dL Normal 40 - 60 [facility] Comment on above: Performed By: #### 2 19179 ####[facility],[address] [place] [address] 45462 Cholesterol in LDL [Mass/Vol] 40 mg/dL Normal 0 - 129 [facility] Comment on above: Performed By: #### 2 71645 ####[facility],[address] [place] [address] 10345 Cholesterol.total/Beatrice sterol in HDL [Mass ratio] 1.7 {ratio} Normal 0.0 - 5.0 [facility] Comment on above: Performed By: #### 2 67968 ####[facility],[address] [place] [address] 51433 Lipid 1996 panel Normal [facility] Comment on above: Result Comment: LIPI D PROFILE Performed By: #### 2 64709 ####[facility],[address] [place] [address] 04426 Triglyceride [Mass/Vol] 22 mg/dL Normal 0 - 150 [facility] Comment on above: Performed By: #### 2 36681 ####[facility],[address] [place] [address] 89671 MR/BMS.Ancelmo 06-09-2025 MR/BMS.[facility] V[facility] Surgery [address] [place] [address]. [address] [place] [address] 188051 OFFICE VISIT Date of Service: 06/09/25 MR#: [id number] Acct: [id number] Name: SABIHA WEBBER Rep #: [id number] [...] nose nor (more content not included)... Normal [facility] Carotid Duplex Ultrasoundon 04-26-2025 Carotid Duplex Ultrasound [facility] [place] [address] [address] [place] [address] Carotid Duplex Ultrasound 04/26/25 1255 MR#: [id number] Acct: [id number] Name: SABIHA WEBBER Rep #: [id number] : 1940 84 From: Blake Gonzalez MD [...] the left vertebral artery. Procedure Carotid Duplex 33079. This is a Carotid Duplex examination using B-mode, color flow and specral Doppler. Exam performed in department. VL/Carotid Duplex Ultrasound Interpretation Summary Moderate (50-69%) stenosis right extracranial internal carotid. Limited due to calcific shadowing. Mild (<50%) stenosis left extracranial internal carotid. The Right vertebral is patent and antegrade. The Left vertebral flow is retrograde. Ordering Physician: Reanna iDaz Referring Physician: Cody Delaney Performed By: Hoa Teague Israel 04/26/25 1608 Date Blake Gonzalez MD CC: TATY Maciel; No Primary Care Physician Date Dictated: 04/26/25 1255 Date Transcribed: 04/26/25 1608 Tag Stringer: Signed Normal [facility] Duplex ultrasound of carotid artery reportOrdered By: Blake Gonzalez on 04-26-2025 Study report [facility] [address] [place] [address] Carotid Duplex Ultrasound 04/26/25 1255 MR#: [id number] Acct: [id number] Name: SABIHA WEBBER Rep #:[id number] : 1940 84 From: Blake Lynn Attending Dr: TATY Maciel Stat us: REG CLI Ordering Dr: Reanna Diaz Date: Location: [facility] Sex: M C Admitted: Reason [...] the left vertebral artery. Procedure Carotid Duplex 94542. This is a Carotid Duplex examination using [...] Date Dictated: 04/26/25 125 Date Transcribed: 04/26/251607 Tag Stringer: Signed [facility] Work Phone: CBC + DIFFon 04-08-2025 Baso # 0.02 x10EE3/UL Normal 0.00 - 0.10 [facility] Comment on above: Performed By: #### 2 29234 #### [address] [address] Basophils/100 WBC (Bld) 0.3 % Normal 0.0 - 2.0 [facility] Comment on above: Performed By: #### 2 08493 #### [facility],[address] [place] [address] 52981 CBC + DIFF Normal [facility] Comment on above: Result Comment: CBC- COMPLETE BLOOD COUNT Performed By: #### 2 46643 #### [facility],[address] [place] [address] 84755 EO # 0.07 x10EE3/UL Normal 0.00 - 0.50 [facility] Comment on above: Performed By: #### 2 70646 #### [facility],[address] [place] [address] 48534 Eosinophils/100 WBC (Bld) 1.2 % Normal 0.0 - 7.0 [facility] Comment on above: Performed By: #### 2 72558 #### [facility],[address] [place] [address] Erythrocyte distribution width (RBC) [Ratio] 13.5 % Normal 12.0 - 15.6 [facility] Comment on above: Performed By: #### 2 37484 #### [facility],[address] [place] [address] Hematocrit (Bld) [Volume fraction] 41.4 % Normal 40.0 - 52.0 [facility] Comment on above: Performed By: #### 2 73150 #### [facility],[address] [place] [address] Hemoglobin (Bld) [Mass/Vol] 14.4 g/dL Normal 13.0 - 17.5 [facility] Comment on above: Performed By: #### 2 78415 #### [facility],[address] [place] [address] Lymph # 1.04 x10EE3/UL Normal 0.80 - 2.80 [facility] Comment on above: Performed By: #### 2 48539 #### [facility],[address] [place], [place] [address] Lymphocytes/100 WBC (Bld) 16.9 % Low 20.0 - 45.0 [facility] Comment on above: Performed By: #### 2 35746 #### [facility],[address] [place], [place] [address] MANUAL DIFF N/A Normal [facility] Comment on above: Performed By: #### 2 11140 #### [place] [id number] MCH (RBC) [Entitic mass] 35 pg High 27 - 33 [facility] Comment on above: Performed By: #### 2 28839 #### [place] [address] MCHC 35 X10 3 Normal 32 - 36 [facility] Comment on above: Performed By: #### 2 17516 #### [facility],[address] [place] [address] 92011 MCV (RBC) [Entitic vol] 100 fL High 81 - 98 J [facility] Comment on above: Performed By: #### 2 73103 #### [facility],[address] [place] [address] 06666 [place] # 0.66 x10EE3/UL Normal 0.20 - 1.00 [facility] Comment on above: Performed By: #### 2 71019 #### [facility],[address] [place] [address] 64885 MONOS % 10.8 % High 0.0 - 10.0 [facility] Comment on above: Performed By: #### 2 74534 #### [facility],[address] [place], [place] [address] Morphology Yao (Bld) [Interp] N/A Normal [facility] Comment on above: Performed By: #### 2 88513 #### [facility],[address] [place] [address] 70793 Neut # 4.36 x10EE3/UL Normal 1.50 - 7.10 [facility] Comment on above: Performed By: #### 2 50436 #### [facility],[address] [place] [address] 37012 Neutrophils/100 WBC (Bld) 70.8 % Normal 46.0 - 76.0 [facility] Comment on above: Performed By: #### 2 73107 #### [facility],[address] [place] [address] 82711 PLATELET 186 x10EE3/UL Normal 150 - 450 [facility] Comment on above: Performed By: #### 2 01603 #### [facility],[address] [place] [address] 30982 Platelet mean volume (Bld) [Entitic vol] 9.1 fL Normal 6.4 - 10.5 [facility] Comment on above: Result Comment: AUTO MATED DIFFERENTIAL Performed By: #### 2 27151 #### [facility],[address] [place] [address] 93776 RBC 4.14 x 10EE6/UL Low 4.50 - 6.00 [facility] Comment on above: Performed By: #### 2 53460 #### [facility],[address] [place] [address] 40981 WBC 6.2 x 10EE3/UL Normal 4.5 - 10.8 [facility] Comment on above: Performed By: #### 2 89193 #### [facility],[address] [place] [address] 83120 CMP with eGFRon 04-08-2025 AGE 84 years Normal [facility] Comment on above: Performed By: #### 2 78635 ####[facility],[address] [place] [address] 00822 Albumin [Mass/Vol] 3.5 g/dL Normal 3.4 - 5.0 [facility] Comment on above: Performed By: #### 2 74802 ####[facility],[address] [place] [address] 96273 Albumin/Globulin [Mass ratio] 1.0 {ratio} Normal 0.9 - 1.6 [facility] Comment on above: Performed By: #### 2 28798 ####[facility],[address] [place] [address] 32671 ALK PHOS 118 U/L High 46 - 116 [facility] Comment on above: Performed By: #### 2 65564 ####[facility],[address] [place] [address] 28068 ALT [Catalytic activity/Vol] 42 U/L Normal 16 - 63 [facility] Comment on above: Performed By: #### 2 27328 ####[facility],[address] [place] [address] 14664 Anion gap [Moles/Vol] 11 mmol/L Normal 10 - 20 [facility] Comment on above: Performed By: #### 2 36254 ####[facility],[address] [place] [address] 21009 AST [Catalytic activity/Vol] 25 U/L Normal 15 - 37 [facility] Comment on above: Performed By: #### 2 68217 ####[facility],[address] [place] [address] 64190 B/C RATIO 30 ratio Normal 0 - 30 [facility] Comment on above: Performed By: #### 2 57763 ####[facility],[address] [place] [address] 92153 Bilirubin [Mass/Vol] 0.7 mg/dL Normal 0.2 - 1.0 [facility] Comment on above: Performed By: #### 2 49612 ####[facility],[address] [place] [address] 80669 Calcium [Mass/Vol] 9.1 mg/dL Normal 8.5 - 10.1 [facility] Comment on above: Performed By: #### 2 39793 ####[facility],[address] [place] [address] 93011 Chloride [Moles/Vol] 108 mmol/L High 98 - 107 [facility] Comment on above: Performed By: #### 2 49063 ####[facility],[address] [place] [address] 84716 CMP with eGFR Normal [facility] Comment on above: Result Comment: COMP REHENSIVE METABOLIC PANEL Performed By: #### 2 69884 ####[facility],[address] [place] [address] 34146 CO2 [Moles/Vol] 27.3 mmol/L Normal 21.0 - 32.0 [facility] Comment on above: Performed By: #### 2 45563 ####[facility],[address] [place] [address] 51717 Creatinine [Mass/Vol] 1.23 mg/dL Normal 0.70 - 1.30 [facility] Comment on above: Performed By: #### 2 53670 ####[facility],[address] [place] [address] 93386 eGFR 56 ML/MINUTE Low 60 - 999 [facility] Comment on above: Performed By: #### 2 11217 ####[facility],[address] [place] [address] 51750 GFR/1.73 sq M.predicted among non-blacks MDRD (S/P/Bld) [Vol rate/Area] mL/min/{1.73_m2} Normal 60 - 999 [facility] Comment on above: Result Comment: ACCO RDING TO THE NATIONAL KIDNEY DISEASE EDUCATION PROGRAM(NKDE), A NORMAL eGFR IS A VALUE GREATER THAN OR EQUAL TO 60 ML/MIN/1.73 SQ METERS. CHRONIC KIDNEY DISEASE: <60mL/MIN/1.73 SQ METERS KIDNEY FAILURE: <15mL/MIN/1.73 SQ METERS THIS TEST SHOULD ONLY BE USED FOR PATIENTS 18 YEARS OF AGE AND OLDER. Performed By: #### 2 97033 ####[facility],[address] [place] [address] 86814 Globulin (S) [Mass/Vol] 3.6 g/dL Normal 1.5 - 3.8 [facility] Comment on above: Performed By: #### 2 75323 ####[facility],[address] [place] [address] 16498 Glucose [Mass/Vol] 90 mg/dL Normal 74 - 106 [facility] Comment on above: Performed By: #### 2 30399 ####[facility],[address] [place] [address] 57725 Potassium [Moles/Vol] 4.6 mmol/L Normal 3.5 - 5.1 [facility] Comment on above: Performed By: #### 2 10894 ####[facility],[address] [place] [address] 81778 Protein [Mass/Vol] 7.1 g/dL Normal 6.4 - 8.2 [facility] Comment on above: Performed By: #### 2 54028 ####[facility],[address] [place] [address] 62724 Sodium [Moles/Vol] 142 mmol/L Normal 136 - 145 [facility] Comment on above: Performed By: #### 2 88292 ####[facility],[address] [place] [address] 56191 Urea nitrogen [Mass/Vol] 37 mg/dL High 7 - 18 [facility] Comment on above: Performed By: #### 2 19332 ####[facility],[address] [place] [address] 72242 CBC + DIFFon 01-13-2025 Baso # 0.01 x10EE3/UL Normal 0.00 - 0.10 [facility] Comment on above: Performed By: #### 2 39769 ####[facility],[address] [place] [address] 59060 Basophils/100 WBC (Bld) 0.1 % Normal 0.0 - 2.0 [facility] Comment on above: Performed By: #### 2 05380 ####[facility],[address] [place] [address] 58915 CBC + DIFF Normal [facility] Comment on above: Result Comment: CBC- COMPLETE BLOOD COUNT Performed By: #### 2 98144 ####[facility],[address] [place] [address] 97202 EO # 0.03 x10EE3/UL Normal 0.00 - 0.50 [facility] Comment on above: Performed By: #### 2 94752 ####[facility],[address] [place] [address] 23013 Eosinophils/100 WBC (Bld) 0.5 % Normal 0.0 - 7.0 [facility] Comment on above: Performed By: #### 2 91543 ####[facility],[address] [place] [address] Erythrocyte distribution width (RBC) [Ratio] 13.1 % Normal 12.0 - 15.6 [facility] Comment on above: Performed By: #### 2 32513 ####[facility],[address] [place] [address] Hematocrit (Bld) [Volume fraction] 43.0 % Normal 40.0 - 52.0 [facility] Comment on above: Performed By: #### 2 93877 ####[facility],[address] [place] [address] Hemoglobin (Bld) [Mass/Vol] 14.5 g/dL Normal 13.0 - 17.5 [facility] Comment on above: Performed By: #### 2 73976 ####[place] [address] Lymph # 0.87 x10EE3/UL Normal 0.80 - 2.80 [facility] Comment on above: Performed By: #### 2 72719 ####[place] [address] Lymphocytes/100 WBC (Bld) 15.4 % Low 20.0 - 45.0 [facility] Comment on above: Performed By: #### 2 66768 ####[place] [phone] MANUAL DIFF N/A Normal [facility] Comment on above: Performed By: #### 2 36448 ####[place] [id number] MCH (RBC) [Entitic mass] 35 pg High 27 - 33 [facility] Comment on above: Performed By: #### 2 03325 ####[place] [address] MCHC 34 X10 3 Normal 32 - 36 [facility] Comment on above: Performed By: #### 2 28292 ####[facility],[address] [place] [address] 92807 MCV (RBC) [Entitic vol] 103 fL High 81 - 98 [facility] Comment on above: Performed By: #### 2 79017 ####[facility],[address] [place] [address] 92769 [place] # 0.36 x10EE3/UL Normal 0.20 - 1.00 [facility] Comment on above: Performed By: #### 2 99243 ####[facility],[address] [place] [address] 06523 MONOS % 6.3 % Normal 0.0 - 10.0 [facility] Comment on above: Performed By: #### 2 20894 ####[facility],[address] [place], [place] [address] Morphology Yao (Bld) [Interp] N/A Normal [facility] Comment on above: Performed By: #### 2 25598 ####[facility],[address] [place], [place] [address] Neut # 4.41 x10EE3/UL Normal 1.50 - 7.10 [facility] Comment on above: Performed By: #### 2 49496 ####[facility],[address] [place] [address] 07379 Neutrophils/100 WBC (Bld) 77.7 % High 46.0 - 76.0 [facility] Comment on above: Performed By: #### 2 15040 ####[facility],[address] [place] [address] 14459 PLATELET 214 x10EE3/UL Normal 150 - 450 [facility] Comment on above: Performed By: #### 2 46232 ####[facility],[address] [place] [address] 38714 Platelet mean volume (Bld) [Entitic vol] 9.1 fL Normal 6.4 - 10.5 [facility] Comment on above: Result Comment: AUTO MATED DIFFERENTIAL Performed By: #### 2 15015 ####[facility],[address] [place] [address] 80642 RBC 4.19 x 10EE6/UL Low 4.50 - 6.00 [facility] Comment on above: Performed By: #### 2 51245 ####[facility],[address] [place] [address] 86458 WBC 5.7 x 10EE3/UL Normal 4.5 - 10.8 [facility] Comment on above: Performed By: #### 2 82455 ####[facility],[address] [place] [address] 16062 CMP with eGFRon 01-13-2025 AGE 84 years Normal [facility] Comment on above: Performed By: #### 2 08764 ####[facility],[address] [place] [address] 33782 Albumin [Mass/Vol] 3.6 g/dL Normal 3.4 - 5.0 [facility] Comment on above: Performed By: #### 2 12276 ####[facility],[address] [place] [address] 47741 Albumin/Globulin [Mass ratio] 1.0 {ratio} Normal 0.9 - 1.6 [facility] Comment on above: Performed By: #### 2 96917 ####[facility],[address] [place] [address] 38526 ALK PHOS 112 U/L Normal 46 - 116 [facility] Comment on above: Performed By: #### 2 53167 ####[facility],[address] [place] [address] 58076 ALT [Catalytic activity/Vol] 30 U/L Normal 16 - 63 [facility] Comment on above: Performed By: #### 2 48431 ####[facility],[address] [place] [address] 30375 Anion gap [Moles/Vol] 13 mmol/L Normal 10 - 20 [facility] Comment on above: Performed By: #### 2 61844 ####[facility],[address] [place] [address] 27836 AST [Catalytic activity/Vol] 22 U/L Normal 15 - 37 [facility] Comment on above: Performed By: #### 2 04752 ####[facility],[address] [place] [address] 22499 B/C RATIO 26 ratio Normal 0 - 30 [facility] Comment on above: Performed By: #### 2 01022 ####[facility],[address] [place] [address] 75995 Bilirubin [Mass/Vol] 0.7 mg/dL Normal 0.2 - 1.0 [facility] Comment on above: Performed By: #### 2 86631 ####[facility],[address] [place], [place] [address] Calcium [Mass/Vol] 9.6 mg/dL Normal 8.5 - 10.1 [facility] Comment on above: Performed By: #### 2 31254 ####[facility],[address] [place] [address] 03323 Chloride [Moles/Vol] 107 mmol/L Normal 98 - 107 [facility] Comment on above: Performed By: #### 2 43451 ####[facility],[address] [place] [address] 38132 CMP with eGFR Normal [facility] Comment on above: Result Comment: COMP REHENSIVE METABOLIC PANEL Performed By: #### 2 45657 ####[facility],[address] [place] [address] 04390 CO2 [Moles/Vol] 27.8 mmol/L Normal 21.0 - 32.0 [facility] Comment on above: Performed By: #### 2 73280 ####[facility],[address] [place] [address] 03106 Creatinine [Mass/Vol] 1.09 mg/dL Normal 0.70 - 1.30 [facility] Comment on above: Performed By: #### 2 70681 ####[facility],[address] [place] [address] 29646 GFR/1.73 sq M.predicted among non-blacks MDRD (S/P/Bld) [Vol rate/Area] mL/min/{1.73_m2} Normal 60 - 999 [facility] Comment on above: Performed By: #### 2 84828 ####[facility],[address] [place] [address] Result Comment: ACCO RDING TO THE NATIONAL KIDNEY DISEASE EDUCATION PROGRAM(NKDE), A NORMAL eGFR IS A VALUE GREATER THAN OR EQUAL TO 60 ML/MIN/1.73 SQ METERS. CHRONIC KIDNEY DISEASE: <60mL/MIN/1.73 SQ METERS KIDNEY FAILURE: <15mL/MIN/1.73 SQ METERS THIS TEST SHOULD ONLY BE USED FOR PATIENTS 18 YEARS OF AGE AND OLDER. Globulin (S) [Mass/Vol] 3.5 g/dL Normal 1.5 - 3.8 [facility] Comment on above: Performed By: #### 2 28043 ####[facility],[address] [place] [address] 32622 Glucose [Mass/Vol] 151 mg/dL High 74 - 106 [facility] Comment on above: Performed By: #### 2 80552 ####[facility],[address] [place] [address] 74305 Potassium [Moles/Vol] 4.3 mmol/L Normal 3.5 - 5.1 [facility] Comment on above: Performed By: #### 2 26330 ####[facility],[address] [place] [address] 29100 Protein [Mass/Vol] 7.1 g/dL Normal 6.4 - 8.2 [facility] Comment on above: Performed By: #### 2 74092 ####[facility],[address] [place] [address] 43578 Sodium [Moles/Vol] 143 mmol/L Normal 136 - 145 [facility] Comment on above: Performed By: #### 2 13939 ####[facility],[address] [place] [address] 55026 Urea nitrogen [Mass/Vol] 28 mg/dL High 7 - 18 [facility] Comment on above: Performed By: #### 2 29209 ####[facility],[address] [place] [address] 29287 T4, FREE [CCL]on 12-18-2024 Free T4 [Mass/Vol] 1.2 ng/dL Normal 0.9-1.7 [facility] Comment on above: Result Comment: [place] [address] Wojciech Fuentes III, M.D. [id number] Performed By: #### 2 12399 #### [facility],[address] [place] [address] 20590 CBC + DIFFon 12-17-2024 Baso # 0.02 x10EE3/UL Normal 0.00 - 0.10 [facility] Comment on above: Performed By: #### 2 30756 #### [facility],[address] [place] [address] 37131 Basophils/100 WBC (Bld) 0.3 % Normal 0.0 - 2.0 [facility] Comment on above: Performed By: #### 2 08663 #### [facility],[address] [place] [address] 91685 CBC + DIFF Normal [facility] Comment on above: Result Comment: CBC- COMPLETE BLOOD COUNT Performed By: #### 2 89978 #### [facility],[address] [place] [address] 42231 EO # 0.02 x10EE3/UL Normal 0.00 - 0.50 [facility] Comment on above: Performed By: #### 2 51357 #### [place] [address] Eosinophils/100 WBC (Bld) 0.3 % Normal 0.0 - 7.0 [facility] Comment on above: Performed By: #### 2 31679 #### [facility],[address] [place] [address] Erythrocyte distribution width (RBC) [Ratio] 12.7 % Normal 12.0 - 15.6 [facility] Comment on above: Performed By: #### 2 30584 #### [place] [address] Hematocrit (Bld) [Volume fraction] 42.0 % Normal 40.0 - 52.0 [facility] Comment on above: Performed By: #### 2 58306 #### [place] [address] Hemoglobin (Bld) [Mass/Vol] 13.9 g/dL Normal 13.0 - 17.5 [facility] Comment on above: Performed By: #### 2 99727 #### [facility],[address] [place] [address] Lymph # 0.98 x10EE3/UL Normal 0.80 - 2.80 [facility] Comment on above: Performed By: #### 2 80955 #### [place] [id number] Lymphocytes/100 WBC (Bld) 16.9 % Low 20.0 - 45.0 [facility] Comment on above: Performed By: #### 2 42430 #### [place] [address] MANUAL DIFF N/A Normal [facility] Comment on above: Performed By: #### 2 48385 #### [place] [address] MCH (RBC) [Entitic mass] 34 pg High 27 - 33 [facility] Comment on above: Performed By: #### 2 53848 #### [address] [address] MCHC 33 X10 3 Normal 32 - 36 [facility] Comment on above: Performed By: #### 2 18162 #### [facility],[address] [place] [address] 49913 MCV (RBC) [Entitic vol] 102 fL High 81 - 98 [facility] Comment on above: Performed By: #### 2 85976 #### [facility],[address] [place] [address] 11446 [place] # 0.65 x10EE3/UL Normal 0.20 - 1.00 [facility] Comment on above: Performed By: #### 2 05395 #### [facility],[address] [place] [address] 77155 MONOS % 11.3 % High 0.0 - 10.0 [facility] Comment on above: Performed By: #### 2 78394 #### [facility],[address] [place] [address] 65169 Morphology Yao (Bld) [Interp] N/A Normal [facility] Comment on above: Performed By: #### 2 26368 #### [facility],[address] [place] [address] 17583 Neut # 4.10 x10EE3/UL Normal 1.50 - 7.10 [facility] Comment on above: Performed By: #### 2 35551 #### [address] [address]41 Neutrophils/100 WBC (Bld) 71.1 % Normal 46.0 - 76.0 [facility] Comment on above: Performed By: #### 2 29179 #### [place] [id number] PLATELET 190 x10EE3/UL Normal 150 - 450 [facility] Comment on above: Performed By: #### 2 96272 #### [facility],[address] [place] [address] 18122 Platelet mean volume (Bld) [Entitic vol] 8.7 fL Normal 6.4 - 10.5 [facility] Comment on above: Result Comment: AUTO MATED DIFFERENTIAL Performed By: #### 2 82358 #### [facility],[address] [place] [address] RBC 4.12 x 10EE6/UL Low 4.50 - 6.00 [facility] Comment on above: Performed By: #### 2 50979 #### [facility],[address] [place] [address] 94854 WBC 5.8 x 10EE3/UL Normal 4.5 - 10.8 [facility] Comment on above: Performed By: #### 2 12336 #### [facility],[address] [place] [address] 46977 CMP with eGFRon 12-17-2024 AGE 84 years Normal [facility] Comment on above: Performed By: #### 2 16512 ####[facility],[address] [place] [address] 11537 Albumin [Mass/Vol] 3.5 g/dL Normal 3.4 - 5.0 [facility] Comment on above: Performed By: #### 2 50620 ####[facility],[address] [place] [address] 78306 Albumin/Globulin [Mass ratio] 1.0 {ratio} Normal 0.9 - 1.6 [facility] Comment on above: Performed By: #### 2 82415 ####[facility],[address] [place] [address] 94662 ALK PHOS 117 U/L High 46 - 116 [facility] Comment on above: Performed By: #### 2 32324 ####[facility],[address] [place] [address] 43432 ALT [Catalytic activity/Vol] 28 U/L Normal 16 - 63 [facility] Comment on above: Performed By: #### 2 27953 ####[facility],[address] [place] [address] 48905 Anion gap [Moles/Vol] 11 mmol/L Normal 10 - 20 [facility] Comment on above: Performed By: #### 2 54442 ####[facility],[address] [place] [address] 83309 AST [Catalytic activity/Vol] 17 U/L Normal 15 - 37 [facility] Comment on above: Performed By: #### 2 14190 ####[facility],[address] [place] [address] 24887 B/C RATIO 22 ratio Normal 0 - 30 [facility] Comment on above: Performed By: #### 2 91953 ####[facility],[address] [place] [address] 72657 Bilirubin [Mass/Vol] 0.7 mg/dL Normal 0.2 - 1.0 [facility] Comment on above: Performed By: #### 2 90461 ####[facility],[address] [place] [address] 86271 Calcium [Mass/Vol] 9.0 mg/dL Normal 8.5 - 10.1 [facility] Comment on above: Performed By: #### 2 69511 ####[facility],[address] [place] [address] 39036 Chloride [Moles/Vol] 106 mmol/L Normal 98 - 107 [facility] Comment on above: Performed By: #### 2 43930 ####[facility],[address] [place] [address] 87707 CMP with eGFR Normal [facility] Comment on above: Result Comment: COMP REHENSIVE METABOLIC PANEL Performed By: #### 2 39966 ####[facility],[address] [place] [address] 53119 CO2 [Moles/Vol] 28.8 mmol/L Normal 21.0 - 32.0 [facility] Comment on above: Performed By: #### 2 92980 ####[facility],[address] [place] [address] 08147 Creatinine [Mass/Vol] 1.05 mg/dL Normal 0.70 - 1.30 [facility] Comment on above: Performed By: #### 2 70544 ####[facility],[address] [place] [address] 94545 GFR/1.73 sq M.predicted among non-blacks MDRD (S/P/Bld) [Vol rate/Area] mL/min/{1.73_m2} Normal 60 - 999 [facility] Comment on above: Performed By: #### 2 23644 ####[facility],[address] [place] [address] Result Comment: ACCO RDING TO THE NATIONAL KIDNEY DISEASE EDUCATION PROGRAM(NKDE), A NORMAL eGFR IS A VALUE GREATER THAN OR EQUAL TO 60 ML/MIN/1.73 SQ METERS. CHRONIC KIDNEY DISEASE: <60mL/MIN/1.73 SQ METERS KIDNEY FAILURE: <15mL/MIN/1.73 SQ METERS THIS TEST SHOULD ONLY BE USED FOR PATIENTS 18 YEARS OF AGE AND OLDER. Globulin (S) [Mass/Vol] 3.4 g/dL Normal 1.5 - 3.8 [facility] Comment on above: Performed By: #### 2 89074 ####[facility],[address] [place] [address] 10206 Glucose [Mass/Vol] 93 mg/dL Normal 74 - 106 [facility] Comment on above: Performed By: #### 2 09350 ####[facility],[address] [place] [address] 47877 Potassium [Moles/Vol] 4.3 mmol/L Normal 3.5 - 5.1 [facility] Comment on above: Performed By: #### 2 23330 ####[facility],[address] [place] [address] 01164 Protein [Mass/Vol] 6.9 g/dL Normal 6.4 - 8.2 [facility] Comment on above: Performed By: #### 2 28818 ####[facility],[address] [place] [address] 54570 Sodium [Moles/Vol] 141 mmol/L Normal 136 - 145 [facility] Comment on above: Performed By: #### 2 05495 ####[facility],[address] [place] [address] 76584 Urea nitrogen [Mass/Vol] 23 mg/dL High 7 - 18 [facility] Comment on above: Performed By: #### 2 29849 ####[facility],[address] [place] [address] 66387 LIPID PROFILEon 12-17-2024 Cholesterol [Mass/Vol] 158 mg/dL Normal 0 - 240 [facility] Comment on above: Performed By: #### 2 73967 #### [facility],[address] [place] [address] 08122 Cholesterol in HDL [Mass/Vol] 72 mg/dL High 40 - 60 [facility] Comment on above: Performed By: #### 2 93393 #### [facility],[address] [place] [address] 25006 Cholesterol in LDL [Mass/Vol] 81 mg/dL Normal 0 - 129 [facility] Comment on above: Performed By: #### 2 38042 #### [facility],[address] [place] [address] 73800 Cholesterol.total/Beatrice sterol in HDL [Mass ratio] 2.2 {ratio} Normal 0.0 - 5.0 [facility] Comment on above: Performed By: #### 2 39531 #### [facility],[address] [place] [address] 56955 Lipid 1996 panel Normal [facility] Comment on above: Result Comment: LIPI D PROFILE Performed By: #### 2 10960 #### [facility],[address] [place] [address] 68221 Triglyceride [Mass/Vol] 27 mg/dL Normal 0 - 150 [facility] Comment on above: Performed By: #### 2 98119 #### [facility],[address] [place] [address] 63620 T4 Free SerPl-mCncon 025 Free T4 [Mass/Vol] 1.2 ng/dL Normal 0.9-1.7 [facility] Comment on above: Order Comment: Speci men Type: BLOOD SPECIMEN Ordering Facility: [facility] Address: [address] [place] [address] Performed By: #### 3 024-7 #### [facility] CLIA [id number] [address] [place] [address] [place] TSHon 12-17-2024 TSH Qn 3.05 m[IU]/L Normal 0.35 - 3.74 [facility] Comment on above: Performed By: #### 2 10046 #### [facility],[address] [place] [address] 59335 Carotid Duplex Ultrasoundon 10-28-[address] [facility] [address] [place] [address] Carotid Duplex Ultrasound 10/28/24 1300 MR#: [id number] Acct: [id number] Name: SABIHA WEBBER Rep #: [id number] : 1940 83 From: Blake Gonzalez MD [...] in left vertebral artery. Procedure Carotid Duplex 06278. This is a Carotid Duplex examination using [...] Hoa Teague RVT and Student 10/29/24940 Date lBake Gonzalez MD CC: TATY Maciel; Dr. Cody Delaney MD Date Dictated: 10/28/24 1300 Date Transcribed: 10/29/24940 Tag Stringer: Signed Normal [facility] CBC + DIFFon 10-16-2024 Baso # 0.03 x10EE3/UL Normal 0.00 - 0.10 [facility] Comment on above: Performed By: #### 2 93155 ####[facility],[address] [place] [address] 81828 Basophils/100 WBC (Bld) 0.3 % Normal 0.0 - 2.0 [facility] Comment on above: Performed By: #### 2 19070 ####[facility],[address] [place] [address] 54896 CBC + DIFF Normal [facility] Comment on above: Result Comment: CBC- COMPLETE BLOOD COUNT Performed By: #### 2 59754 ####[facility],[address] [place] [address] 32800 EO # 0.06 x10EE3/UL Normal 0.00 - 0.50 [facility] Comment on above: Performed By: #### 2 66095 ####[facility],[address] [place] [address] 89271 Eosinophils/100 WBC (Bld) 0.6 % Normal 0.0 - 7.0 [facility] Comment on above: Performed By: #### 2 64448 ####[facility],[address] [place] [address] 72654 Erythrocyte distribution width (RBC) [Ratio] 13.6 % Normal 12.0 - 15.6 [facility] Comment on above: Performed By: #### 2 02075 ####[facility],[address] [place] [address] 07332 Hematocrit (Bld) [Volume fraction] 42.4 % Normal 40.0 - 52.0 [facility] Comment on above: Performed By: #### 2 97903 ####[facility],[address] [place] [address] 96707 Hemoglobin (Bld) [Mass/Vol] 14.1 g/dL Normal 13.0 - 17.5 [facility] Comment on above: Performed By: #### 2 67949 ####[facility],[address] [place] [address] 59808 Lymph # 0.70 x10EE3/UL Low 0.80 - 2.80 [facility] Comment on above: Performed By: #### 2 63709 ####[facility],[address] [place], [place] [address] Lymphocytes/100 WBC (Bld) 6.7 % Low 20.0 - 45.0 [facility] Comment on above: Performed By: #### 2 46547 ####[facility],[address] [place] [address] 43941 MANUAL DIFF N/A Normal [facility] Comment on above: Performed By: #### 2 72473 ####[facility],[address] [place] [address] 63158 MCH (RBC) [Entitic mass] 34 pg High 27 - 33 [facility] Comment on above: Performed By: #### 2 50769 ####[facility],[address] [place] [address] 77328 MCHC 33 X10 3 Normal 32 - 36 [facility] Comment on above: Performed By: #### 2 25178 ####[facility],[address] [place] [address] 13103 MCV (RBC) [Entitic vol] 104 fL High 81 - 98 [facility] Comment on above: Performed By: #### 2 61549 ####[facility],[address] [place] [address] 01621 [place] # 1.04 x10EE3/UL High 0.20 - 1.00 [facility] Comment on above: Performed By: #### 2 60784 ####[facility],[address] [place] [address] 79817 MONOS % 10.1 % High 0.0 - 10.0 [facility] Comment on above: Performed By: #### 2 31286 ####[facility],[address] [place] [address] 44218 Morphology Yao (Bld) [Interp] N/A Normal [facility] Comment on above: Performed By: #### 2 80831 ####[facility],[address] [place] [address] 33830 Neut # 8.55 x10EE3/UL High 1.50 - 7.10 [facility] Comment on above: Performed By: #### 2 07476 ####[facility],[address] [place] [address] 36231 Neutrophils/100 WBC (Bld) 82.4 % High 46.0 - 76.0 [facility] Comment on above: Performed By: #### 2 99254 ####[facility],[address] [place] [address] 04021 PLATELET 194 x10EE3/UL Normal 150 - 450 [facility] Comment on above: Performed By: #### 2 12731 ####[facility],[address] [place] [address] 88246 Platelet mean volume (Bld) [Entitic vol] 9.5 fL Normal 6.4 - 10.5 [facility] Comment on above: Result Comment: AUTO MATED DIFFERENTIAL Performed By: #### 2 71656 ####[facility],[address] [place] [address] 04440 RBC 4.10 x 10EE6/UL Low 4.50 - 6.00 [facility] Comment on above: Performed By: #### 2 00070 ####[facility],[address] [place] [address] 99519 WBC 10.4 x 10EE3/UL Normal 4.5 - 10.8 [facility] Comment on above: Performed By: #### 2 28671 ####[facility],[address] [place] [address] 20054 CMP with eGFRon 10-16-2024 AGE 83 years Normal [facility] Comment on above: Performed By: #### 2 85959 #### [facility],[address] [place] [address] 44687 Albumin [Mass/Vol] 3.3 g/dL Low 3.4 - 5.0 [facility] Comment on above: Performed By: #### 2 37229 #### [facility],[address] [place] [address] 10868 Albumin/Globulin [Mass ratio] 1.0 {ratio} Normal 0.9 - 1.6 [facility] Comment on above: Performed By: #### 2 00190 #### [facility],[address] [place] [address] 41106 ALK PHOS 100 U/L Normal 46 - 116 [facility] Comment on above: Performed By: #### 2 99748 #### [facility],[address] [place] [address] 00129 ALT [Catalytic activity/Vol] 36 U/L Normal 16 - 63 [facility] Comment on above: Performed By: #### 2 25276 #### [facility],[address] [place] [address] 51358 Anion gap [Moles/Vol] 7 mmol/L Low 10 - 20 [facility] Comment on above: Performed By: #### 2 86977 #### [facility],[address] [place] [address] 34542 AST [Catalytic activity/Vol] 21 U/L Normal 15 - 37 [facility] Comment on above: Performed By: #### 2 36185 #### [facility],[address] [place] [address] 89476 B/C RATIO 23 ratio Normal 0 - 30 [facility] Comment on above: Performed By: #### 2 52214 #### [facility],[address] [place] [address] 71899 Bilirubin [Mass/Vol] 0.6 mg/dL Normal 0.2 - 1.0 [facility] Comment on above: Performed By: #### 2 89675 #### [facility],[address] [place] [address] 52696 Calcium [Mass/Vol] 9.0 mg/dL Normal 8.5 - 10.1 [facility] Comment on above: Performed By: #### 2 50689 #### [facility],[address] [place] [address] 01239 Chloride [Moles/Vol] 107 mmol/L Normal 98 - 107 [facility] Comment on above: Performed By: #### 2 06734 #### [facility],[address] [place] [address] 95473 CMP with eGFR Normal [facility] Comment on above: Result Comment: COMP REHENSIVE METABOLIC PANEL Performed By: #### 2 31437 #### [facility],[address] [place] [address] 09054 CO2 [Moles/Vol] 30.8 mmol/L Normal 21.0 - 32.0 [facility] Comment on above: Performed By: #### 2 51543 #### [facility],[address] [place] [address] 85646 Creatinine [Mass/Vol] 1.11 mg/dL Normal 0.70 - 1.30 [facility] Comment on above: Performed By: #### 2 46911 #### [facility],[address] [place] [address] 37748 GFR/1.73 sq M.predicted among non-blacks MDRD (S/P/Bld) [Vol rate/Area] mL/min/{1.73_m2} Normal 60 - 999 [facility] Comment on above: Performed By: #### 2 77775 #### [facility],[address] [place] [address] 26767 Result Comment: ACCO RDING TO THE NATIONAL KIDNEY DISEASE EDUCATION PROGRAM(NKDE), A NORMAL eGFR IS A VALUE GREATER THAN OR EQUAL TO 60 ML/MIN/1.73 SQ METERS. CHRONIC KIDNEY DISEASE: <60mL/MIN/1.73 SQ METERS KIDNEY FAILURE: <15mL/MIN/1.73 SQ METERS THIS TEST SHOULD ONLY BE USED FOR PATIENTS 18 YEARS OF AGE AND OLDER. Globulin (S) [Mass/Vol] 3.3 g/dL Normal 1.5 - 3.8 [facility] Comment on above: Performed By: #### 2 64580 #### [facility],[address] [place] [address] 52001 Glucose [Mass/Vol] 86 mg/dL Normal 74 - 106 [facility] Comment on above: Performed By: #### 2 79259 #### [facility],[address] [place] [address] 48499 Potassium [Moles/Vol] 4.1 mmol/L Normal 3.5 - 5.1 [facility] Comment on above: Performed By: #### 2 46363 #### [facility],[address] [place] [address] 74286 Protein [Mass/Vol] 6.6 g/dL Normal 6.4 - 8.2 [facility] Comment on above: Performed By: #### 2 14026 #### [facility],[address] [place] [address] 74311 Sodium [Moles/Vol] 141 mmol/L Normal 136 - 145 [facility] Comment on above: Performed By: #### 2 37488 #### [facility],[address] [place] [address] 27073 Urea nitrogen [Mass/Vol] 25 mg/dL High 7 - 18 [facility] Comment on above: Performed By: #### 2 54903 #### [facility],[address] [place] [address] 94743 ED MED ADMINISTRATION DETAIL on 09-06-2024 ED MED ADMINISTRATION DETAIL Chief Console Operator Medication Administration Record [address] [address] [id number] 09/06/2024 Patient: SABIHA WEBBER Sex: Male : [...] [place] Edwards R.N. 1 of 1 Normal [facility] ED NURSES CLINICAL NOTEon ED NURSES CLINICAL NOTE Nurse Narrative Nurse Clinical Narrative [address] [address] [id number] 09/06/2024 Patient: SABIHA WEBBER Sex: Male : [...] Melendez R.N. 09/06/24 17:10:38 EST) Generated by [facility] 3 of 3 Normal [facility] ED ORDER SHEET (CPOE ONLY)on 09-06-2024 ED ORDER SHEET (CPOE ONLY) Order Sheet Order Sheet [address] [place] [address] [id number] 09/06/2024 Patient: SABIHA WEBBER Sex: Male : [...] (09/06/2024 16:04 EST)] 2 of 2 Normal [facility] ED PHYSICIAN CLINICAL REPORT on 09-06-2024 ED PHYSICIAN CLINICAL REPORT Narrative Physician Clinical Narrative [address] [place] [address] [id number] 09/06/2024 Patient: SABIHA WEBBER Sex: Male : [...] Leblanc D.O. 09/06/24 16:04:18 EST) Generated by [facility] 3 of 3 Normal [facility] ED [facility] BILL 09-06-2024 ED [facility] [address] [place] [address] [id number] 09/06/2024 Patient: SABIHA WEBBER Sex: Male : 1940 Age: 83y Item Professional Category Description Facility Code Code Quantity Fee Total Nurse/E/M EMERGENCY 815458 1 $0.00 $0.00 DEPARTMENT VISIT MODERATE SEVERITY (69161-97) Grand Total $0.00 Providers Luis Leblanc D.O. [...] knee, initial encounter 2 of 2 Normal [facility] ED VISIT SUMMARYon ED VISIT SUMMARY Visit Overview Visit Overview [address] [place] [address] [id number] 09/06/2024 Patient: SABIHA WEBBER Sex: Male : [...] LEVEL BY STUMBLING 3 of 3 Normal [facility] ED VITALS FLOW SHEETon 09-06 ED VITALS FLOW SHEET Vitals Vital Sign Flow Sheet [address] [address] [id number] 09/06/2024 Patient: SABIHA WEBBER Sex: Male : 1940 Age: 83y Measurements Wt: 72.6 kg Measured Time BP MAP HR RR O2Sat ETCO2 Temp Pain GCS RTS 16:57 09/06/2024 124/79 94 72 16 96% 98.0 F 1 14:10 09/06/2024 143/81 102 87 18 95% 98.9 F 6 1 of 1 Normal [facility] FEMUR RT 2+ VIEWSon 09-06-20 FEMUR RT 2+ VIEWS [address] [address] Patient: SABIHA WEBBER Phone#: : 1940 Age: 83 Gender: M Pt. Type: ER Account: [id number] Location: 052 Ordering: LUIS LEBLANC Exam Date: 09/06/2024/14:47 Family Phys: BUTROS LATOUF Charge Code: 332114 Physician: Lowndes Order #: [id number] Dose#: PROCEDURE: X-RAY FEMUR RT MIN 2 [...] Zambrano MD on 09/06/2024 at 22:03 Normal [facility] KNEE COMPLETE RT MIN 4 VIEWS on 09-06-2024 KNEE COMPLETE RT MIN 4 VIEWS [place] [address] Patient: SABIHA WEBBER Phone#: : 1940 Age: 83 Gender: M Pt. Type: ER Account: [id number] Location: 052 Ordering: LUIS LEBLANC Exam Date: 09/06/2024/14:38 Family Phys: BUTROS LATOUF Charge Code: 880571 Physician: Lowndes Order #: [id number] Dose#: PROCEDURE: X-RAY KNEE RT COMPLETE 4 VIEWS COMPARISON: None. INDICATIONS: Pain. FINDINGS: BONES: Normal. No significant arthropathy or acute abnormality. SOFT TISSUES: Negative. No visible soft tissue swelling. EFFUSION: None visible. OTHER: Negative. CONCLUSION: No acute disease. Dictated by: Luly Zambrano MD on 09/06/2024 at 22:01 Approved by: Luly Zambrano MD on 09/06/2024 at 22:01 Normal [facility] CBC + DIFFon 07-31-2024 Baso # 0.02 x10EE3/UL Normal 0.00 - 0.10 [facility] Comment on above: Performed By: #### 2 06632 ####[facility],[address] [place] [address] 85052 Basophils/100 WBC (Bld) 0.3 % Normal 0.0 - 2.0 [facility] Comment on above: Performed By: #### 2 66759 ####[facility],[address] [place] [address] CBC + DIFF Normal [facility] Comment on above: Result Comment: CBC- COMPLETE BLOOD COUNT Performed By: #### 2 11125 ####[facility],[address] [place] [address] EO # 0.03 x10EE3/UL Normal 0.00 - 0.50 [facility] Comment on above: Performed By: #### 2 54328 ####[facility],[address] [place] [address] 32328 Eosinophils/100 WBC (Bld) 0.5 % Normal 0.0 - 7.0 [facility] Comment on above: Performed By: #### 2 41041 ####[facility],[address] [place] [address] Erythrocyte distribution width (RBC) [Ratio] 13.6 % Normal 12.0 - 15.6 [facility] Comment on above: Performed By: #### 2 24354 ####[facility],[address] [place] [address] Hematocrit (Bld) [Volume fraction] 43.5 % Normal 40.0 - 52.0 [facility] Comment on above: Performed By: #### 2 35874 ####[facility],[address] [place] [address] 98087 Hemoglobin (Bld) [Mass/Vol] 14.7 g/dL Normal 13.0 - 17.5 [facility] Comment on above: Performed By: #### 2 11553 ####[facility],[address] [place], [place] [address] Lymph # 0.99 x10EE3/UL Normal 0.80 - 2.80 [facility] Comment on above: Performed By: #### 2 26988 ####[facility],[address] [place] [address] 27063 Lymphocytes/100 WBC (Bld) 13.4 % Low 20.0 - 45.0 [facility] Comment on above: Performed By: #### 2 30161 ####[facility],[address] [place] [address] MANUAL DIFF N/A Normal [facility] Comment on above: Performed By: #### 2 71744 ####[facility],[address] [place] [address] MCH (RBC) [Entitic mass] 34 pg High 27 - 33 [facility] Comment on above: Performed By: #### 2 53419 ####[facility],[address] [place] [address] MCHC 34 X10 3 Normal 32 - 36 [facility] Comment on above: Performed By: #### 2 72529 ####[facility],[address] [place], [place] [address] MCV (RBC) [Entitic vol] 100 fL High 81 - 98 [facility] Comment on above: Performed By: #### 2 52621 ####[facility],[address] [place] [address] [place] # 0.60 x10EE3/UL Normal 0.20 - 1.00 [facility] Comment on above: Performed By: #### 2 61042 ####[address] [address] MONOS % 8.0 % Normal 0.0 - 10.0 [facility] Comment on above: Performed By: #### 2 95751 ####[facility],[address] [place] [address] 08947 Morphology Yao (Bld) [Interp] N/A Normal [facility] Comment on above: Performed By: #### 2 40884 ####[facility],[address] [place] [address] 94184 Neut # 5.79 x10EE3/UL Normal 1.50 - 7.10 [facility] Comment on above: Performed By: #### 2 72902 ####[facility],[address] [place] [address] 02368 Neutrophils/100 WBC (Bld) 77.9 % High 46.0 - 76.0 [facility] Comment on above: Performed By: #### 2 70588 ####[facility],[address] [place] [address] 52343 PLATELET 198 x10EE3/UL Normal 150 - 450 [facility] Comment on above: Performed By: #### 2 82037 ####[facility],[address] [place] [address] 53191 Platelet mean volume (Bld) [Entitic vol] 8.8 fL Normal 6.4 - 10.5 [facility] Comment on above: Result Comment: AUTO MATED DIFFERENTIAL Performed By: #### 2 68425 ####[facility],[address] [place] [address] 42612 RBC 4.33 x 10EE6/UL Low 4.50 - 6.00 [facility] Comment on above: Performed By: #### 2 98418 ####[facility],[address] [place] [address] 70131 WBC 7.4 x 10EE3/UL Normal 4.5 - 10.8 [facility] Comment on above: Performed By: #### 2 05756 ####[facility],[address] [place] [address] 77360 CMP with eGFRon 07-31-2024 AGE 83 years Normal [facility] Comment on above: Performed By: #### 2 00423 #### [facility],[address] [place] [address] 21555 Albumin [Mass/Vol] 3.7 g/dL Normal 3.4 - 5.0 [facility] Comment on above: Performed By: #### 2 45137 #### [facility],[address] [place] [address] Albumin/Globulin [Mass ratio] 1.0 {ratio} Normal 0.9 - 1.6 [facility] Comment on above: Performed By: #### 2 77419 #### [facility],[address] [place] [address] ALK PHOS 109 U/L Normal 46 - 116 [facility] Comment on above: Performed By: #### 2 10898 #### [facility],[address] [place] [address] ALT [Catalytic activity/Vol] 25 U/L Normal 16 - 63 [facility] Comment on above: Performed By: #### 2 77860 #### [facility],[address] [place] [address] Anion gap [Moles/Vol] 12 mmol/L Normal 10 - 20 [facility] Comment on above: Performed By: #### 2 80469 #### [facility],[address] [place] [address] AST [Catalytic activity/Vol] 23 U/L Normal 15 - 37 [facility] Comment on above: Performed By: #### 2 [id number] #### [facility],[address] [place] [address] B/C RATIO 22 ratio Normal 0 - 30 [facility] Comment on above: Performed By: #### 2 [id number] #### [facility],[address] [place] [address] 82760 Bilirubin [Mass/Vol] 0.7 mg/dL Normal 0.2 - 1.0 [facility] Comment on above: Performed By: #### 2 [id number] #### [facility],[address] [place] [address] 42163 Calcium [Mass/Vol] 9.7 mg/dL Normal 8.5 - 10.1 [facility] Comment on above: Performed By: #### 2 [id number] #### [facility],[address] [place], [place] [id number] Chloride [Moles/Vol] 105 mmol/L Normal 98 - 107 [facility] Comment on above: Performed By: #### 2 [id number] #### [facility],[address] [place] [address] CMP with eGFR Normal [facility] Comment on above: Result Comment: COMP REHENSIVE METABOLIC PANEL Performed By: #### 2 [id number] #### [facility],[address] [place] [address] CO2 [Moles/Vol] 29.1 mmol/L Normal 21.0 - 32.0 [facility] Comment on above: Performed By: #### 2 53222 #### [facility],[address] [place], [place] [id number] Creatinine [Mass/Vol] 1.22 mg/dL Normal 0.70 - 1.30 [facility] Comment on above: Performed By: #### 2 14278 #### [facility],[address] [place] [address] eGFR 57 ML/MINUTE Low 60 - 999 [facility] Comment on above: Performed By: #### 2 01106 #### [facility],[address] [place], [place] [id number] GFR/1.73 sq M.predicted among non-blacks MDRD (S/P/Bld) [Vol rate/Area] mL/min/{1.73_m2} Normal 60 - 999 [facility] Comment on above: Result Comment: ACCO RDING TO THE NATIONAL KIDNEY DISEASE EDUCATION PROGRAM(NKDE), A NORMAL eGFR IS A VALUE GREATER THAN OR EQUAL TO 60 ML/MIN/1.73 SQ METERS. CHRONIC KIDNEY DISEASE: <60mL/MIN/1.73 SQ METERS KIDNEY FAILURE: <15mL/MIN/1.73 SQ METERS THIS TEST SHOULD ONLY BE USED FOR PATIENTS 18 YEARS OF AGE AND OLDER. Performed By: #### 2 13934 #### [facility],[address] [place] [address] 38879 Globulin (S) [Mass/Vol] 3.7 g/dL Normal 1.5 - 3.8 [facility] Comment on above: Performed By: #### 2 [id number] #### [facility],[address] [place] [address] 18406 Glucose [Mass/Vol] 97 mg/dL Normal 74 - 106 [facility] Comment on above: Performed By: #### 2 53227 #### [facility],[address] [place] [address] 75600 Potassium [Moles/Vol] 4.9 mmol/L Normal 3.5 - 5.1 [facility] Comment on above: Performed By: #### 2 72209 #### [facility],[address] [place] [address] 00908 Protein [Mass/Vol] 7.4 g/dL Normal 6.4 - 8.2 [facility] Comment on above: Performed By: #### 2 34261 #### [facility],[address] [place] [address] 29557 Sodium [Moles/Vol] 141 mmol/L Normal 136 - 145 [facility] Comment on above: Performed By: #### 2 96735 #### [facility],[address] [place] [address] 20608 Urea nitrogen [Mass/Vol] 27 mg/dL High 7 - 18 [facility] Comment on above: Performed By: #### 2 [id number] #### [facility],[address] [place] [address] 25422 No Panel InformationOrdered By: Blake Gonzalez on 09-26-2023 Estimated GFR (MDRD) Amer 76 mL/min >60 [facility] Comment on above: GFR Calc Estimated GFR (MDRD) Non-Af Amer 63 mL/min >60 [facility] Comment on above: Non- GFR Calc Serum or plasma creatinine m easurement (mass/volume)Ordered By: Blake Gonzalez on 09-26-2023 Creatinine [Mass/Vol] 1.18 mg/dL 0.70-1.30 [facility] Comment on above: The validity of the calculated GFR & GFRAA in patients over 70 years has not been determined. Clinical correlation is essential. Vital Signs Date Time Vital Sign Value Performing Clinician Facility 06-09-2025 16:10-0400 Body temperature 98.2 [degF] Reanna Diaz PA Work Phone: [facility] 06-09-2025 16:10-0400 Body weight 61.23 kg Reanna Diaz PA Work Phone: [facility] 06-09-2025 16:10-0400 Diastolic blood pressure 79 mm[Hg] Reanna Diaz PA Work Phone: [facility] 06-09-2025 16:10-0400 Heart rate 86 /min Reanna Diaz PA Work Phone: [facility] 06-09-2025 16:10-0400 Respiratory rate 16 /min Reanna Diaz PA Work Phone: [facility] 06-09-2025 16:10-0400 SaO2% (BldA) [Mass fraction] 95 % Reanna Diaz PA Work Phone: [facility] 06-09-2025 16:10-0400 Systolic blood pressure 144 mm[Hg] Reanna Diaz PA Work Phone: [facility] 12-20-2023 14:47-0400 Body temperature 97.39 [degF] Cristina Elias TRAINING INSTRUCTOR.SECURITY SOLUTIONS ENGINEER Work Phone: [facility] 12-20-2023 14:47-0400 Body weight 62.9 kg Cristina Elias TRAINING INSTRUCTOR.SECURITY SOLUTIONS ENGINEER Work Phone: [facility] 12-20-2023 14:47-0400 Diastolic blood pressure 61 mm[Hg] Cristina Elias TRAINING INSTRUCTOR.SECURITY SOLUTIONS ENGINEER Work Phone: [facility] 12-20-2023 14:47-0400 Heart rate 74 /min Cristina Praisler-Wood TRAINING INSTRUCTOR.SECURITY SOLUTIONS ENGINEER Work Phone: [facility] 12-20-2023 14:47-0400 Respiratory rate 18 /min Cristina Praisler-Wood TRAINING INSTRUCTOR.SECURITY SOLUTIONS ENGINEER Work Phone: [facility] 12-20-2023 14:47-0400 SaO2% (BldA) [Mass fraction] 99 % Cristina Praisler-Wood TRAINING INSTRUCTOR.SECURITY SOLUTIONS ENGINEER Work Phone: [facility] 12-20-2023 14:47-0400 Systolic blood pressure 92 mm[Hg] Cristina Praisler-Wood TRAINING INSTRUCTOR.SECURITY SOLUTIONS ENGINEER Work Phone: [facility] 09-26-2023 13:14-0500 Body temperature 98.4 [degF] Dr. Blake Gonzalez Work Phone: [facility] 09-26-2023 13:14-0500 Body weight 59.[address] Blake Gonzalez Work Phone: [facility] 09-26-2023 13:14-0500 Diastolic blood pressure 76 mm[Hg] Dr. Blake Gonzalez Work Phone: [facility] 09-26-2023 13:14-0500 Heart rate 74 /min Dr. Blake Gonzalez Work Phone: [facility] 09-26-2023 13:14-0500 Respiratory rate 16 /min Dr. Blake Gonzalez Work Phone: [facility] 09-26-2023 13:14-0500 SaO2% (BldA) [Mass fraction] 96 % Dr. Blake Gonzalez Work Phone: [facility] 09-26-2023 13:14-0500 Systolic blood pressure 148 mm[Hg] Dr. Blake Gonzalez Work Phone: [facility] Encounters Encounter Date Encounter Type Care Provider Facility Start: 07-25-2025 End: 07-27-2025 ambulatory VIRGIE TRAINING INSTRUCTOR SEFFENS [facility] Start: 07-01-2025 End: 07-01-2025 ambulatory [facility] Start: 06-09-2025 End: 06-09-[address] Blake Gonzalez MD -[facility] Work Phone: Start: 06-09-2025 End: 06-09-2025 ambulatory Blake Gonzalez Facility:[facility] Start: 04-26-2025 Non-patient / Non-visit Dr. Blake yuen MD -[facility] Start: 04-26-2025 End: 04-26-2025 ambulatory Reanna POSEY Work Phone: -[facility] Start: 04-26-2025 End: 04-26-2025 Patient encounter procedure Reanna POSEY -[facility] Work Phone: Start: 04-26-2025 End: 04-26-2025 ambulatory Reanna Diaz Facility:[facility] Start: 04-08-2025 End: 04-08-2025 ambulatory TOMEKA GOMES [facility] Start: 01-13-2025 End: 01-13-2025 ambulatory [facility] Start: 12-17-2024 End: 12-17-2024 ambulatory CODY DELANEY [facility] Start: 12-11-2024 ambulatory CODY DELANEY [facility] Start: 10-28-2024 ambulatory Cody Crowrobert Facility: [facility] Start: 10-28-2024 End: 10-28-2024 ambulatory Cody [facility] Facility:[facility] Start: 10-16-2024 End: 10-16-2024 ambulatory TOMEKA GOMES [facility] Start: 09-06-2024 End: 09-06-2024 Emergency department patient visit CODY L[facility]PEZ [facility] Start: 07-31-2024 End: 07-31-2024 ambulatory TOMEKA GOMES [facility] Start: 12-20-2023 End: 12-20-2023 Patient encounter procedure Cristina LevinOsvaldo ARMSTRONG Work Phone: [facility] Comment on above: Viral URI with cough (Primary Dx) Start: 10-11-2023 Non-patient / Non-visit Dr. Boo Delaney Work Phone: [facility] Start: 10-11-2023 End: 10-11-[address] Cody Delaney Work Phone: [facility] Work Phone: Start: 10-11-2023 End: 10-11-[address] Cody Delaney Work Phone: [facility]-Cardiovascular Services Work Phone: Start: 09-26-2023 End: 09-26-[address] Blake Gonzalez Work Phone: [facility] Work Phone: Start: 09-26-2023 End: 09-26-[address] Blake Gonzalez Work Phone: [facility]-Laboratory Work Phone: Start: 09-26-2023 End: 09-26-[address] Blake Gonzalez Work Phone: [facility] Work Phone: Start: 08-16-2023 Emergency department patient visit BRENNAN BARROS [facility] Procedures Date Procedure Procedure Detail Performing Clinician Start: 07-26-2025 Urinalysis TOMEKA ROSALVA ANKI Comment on above: Result Comment: URIN ALYSIS Performed By: #### 2 [id number] ####[facility],[address] [place] [address] Start: 07-25-2025 Urinalysis TOMEKA ROSALVA ANKI Comment on above: Result Comment: URIN ALYSIS Performed By: #### 2 [id number] #### [facility],[address] [facility] [address] Start: 10-11-2023 CT angiography of he ad [...] [facility] Ankle brachial press ure index [facility] CTA Head vessels and Neck vessels W contrast IV [facility] US Carotid arteries [facility] Payers Date Payer Category Payer Self-pay 2023 Unknown [employer] H[employer] POS [id number] 2023-Present [phone] [address] [place] [address] O [id number] 2010 Unknown [id number] 1940 Unknown [id number] 1940 Unknown [id number] 1940 Unknown [id number] [id number] 1940 Unknown [id number] [id number] 1940 Unknown [id number] [id number] 1940 Unknown [id number] [id number] 1940 Unknown [id number] [id number] 1940 Unknown [id number] [id number] 1940 Unknown [id number] [id number] Unknown [id number] [id number] Unknown [id number] [id number] Unknown [id number] [id number] Unknown [id number] [id number] Unknown [id number] Social History Date Type Detail Facility Start: 09-26-2023 [facility] Start: 1940 Sex Assigned At Male [facility] Start: 12-20-2023 [facility] tobacco [facility] Start: 12-20-2023 Tobacco use and exposure Smokeless tobacco non-user [facility] Start: 12-20-2023 History of Social function [facility] Start: 12-20-2023 Tobacco use panel [facility] Start: 1940 Sex Assigned At Not on file [facility] Start: 10-16-2023 Tobacco smoking stat us NHIS Current some day smoker [facility] Clinical Notes 12-20-2023 to 07-25-2025 Note [...] Locations *1: This test was performed at: [address], [facility] , [facility] 07-25-2025 Note . MICRO - Microbiology PROCEDURE: [...] Locations *1: This test was performed at: [address], [address] [place] [address] 06-09-2025 Progress note [facility] 06-09-2025 Progress note Note Date/Time June 09, 2025 4:29pm [facility] [address] [place] [address] OFFICE VISIT Date of Service: 06/09/25 MR#: [id number] Acct: [id number] Name: SABIHA WEBBER Rep #: [id number] : 1940 Provider: Dr. Blake Gonzalez MD [...] fallen in the past year?: Yes 06/10/25 9054 <Electronically signed by Blake Lynn> Date _ Blake Joel Signature: Date (if applicable) CC: ~ [facility] [employer] Work Phone: 1(628) 526-309212-22-2024 NoteDischarge Instructions Discharge Summary [address] [place] [address] [phone] 09/06/2024 Patient: SABIHA WEBBER Sex: Male : 1940 Age: 83y Thank you for visiting [facility]. You have been evaluated today by [...] Fall Lower Extremity Bruise Patient Signature Facility Player Manager Date/Time 1 of 5 Discharge Instructions General Instructions with ExitWriter [address] [place] [address] [phone] 09/06/2024 Patient: SABIHA WEBBER Sex: Male : 1940 Age: 83y Thank you for visiting [facility]. You have been evaluated today by [...] in preventing falls. If (more content not included)...[facility]04-05-2024 Instructions* Patient Instructions* Cristina Elias APRN.SECURITY SOLUTIONS ENGINEER - 12/20/2023 3:07 PM EDT ASSESSMENT/PLAN: 1. [...] fluids help open respiratory and sinus passages [place] [facility] [place] may offer relief of nasal and head [...] testing, patient declined. CHERYL Brand TEACHING PROVIDER (Physician/PA/TRAINING INSTRUCTOR) NOTE OF PERSONAL INVOLVEMENT IN CARE: I have personally seen and examined the patient and performed the medical decision-making components. I have reviewed the Advanced Practice Registered Nurse (TRAINING INSTRUCTOR) Student's documentation and verified the findings in the note as written. Any additions or changes are noted in bold/italics. Signature: Cristina Elias Date: 12/20/2023 Time: 3:21 PM [facility]* Diagnosis Onset Date Resolution Status Carotid stenosis, right chronic condition nurse rikki [facility] Work Phone: Evaluation note* Diagnosis Viral URI with cough- Primary Acute upper respiratory infections of unspecified site documented in this encounter [facility] noteNo assessment information availableWTuscarawas [facility] Work Phone: Evaluation note* Diagnosis Onset Date Resolution Status Admit Date Carotid stenosis, right chronic S eptember 2024 3:59pm [facility] Work Phone: Reason for referral (narrative)No reason for referral information availableWTuscarawas Hospital Work Phone: Summary Purpose Family History [...] and content) DATE CREATED AUTHOR 08/19/[address] [facility] DATE CREATED AUTHOR AUTHOR'S ORGANIZ ATION 12/20/[address] [facility] DATE CREATED AUTHOR AUTHOR'S ORGANIZ ATION 06/11/2025 [facility] DATE CREATED AUTHOR AUTHOR'S ORGANIZ ATION 07/26/2025 [facility] DATE CREATED AUTHOR AUTHOR'S ORGANIZ ATION 07/28/[address] [facility] Care Teams (unrecognized sec tion and [...] BE BASED ON THE PRIMARY CLINICAL RECORDS. [employer] provides no warranty or guarantee of the accuracy or completeness of information in this document.
[2025-09-04 22:11] VITALS: BP 137/67; PULSE 92; RESP 16; TEMP 36.8; O2SAT 96
[2025-09-05 05:23] VITALS: BP 148/59; PULSE 89; RESP 16; TEMP 36.9; O2SAT 98
[2025-09-05 05:28] LABS: Hematocrit 25.5 % (40-54); Hemoglobin 8.5 g/dL (13.0-16.5); Immature Granulocytes Count 0.050 X10^3/uL (0.0-0.0); Mean Corp Hgb Conc 33.3 g/dL (32-36); Mean Corpuscular Volume 99.6 fL (80-94); Mean Platelet Vol. 10.1 fl (6.2-12.0); NRBC Flagged by Analyzer 0 % (0-5); POSITIVE DIFFERENTIAL YES; POSITIVE MORPHOLOGY YES; Platelet Count 194 K/mm3 (150-450); RBC Distribution Width CV 13.2 % (11.6-14.6); RBC Distribution Width SD 48.0 fl (35.1-43.9); Red Blood Count 2.56 M/mm3 (4.6-6.2); White Blood Count 9.8 K/mm3 (4.4-11.0)
[2025-09-05 05:35] LABS: Differential Indicated SCAN CRITERIA MET
[2025-09-05 05:56] LABS: Anion Gap 10 (5-15); BUN 33 mg/dL (4-19); BUN/Creat Ratio 23.9 RATIO (10-20); Calcium,Total 9.0 mg/dL (7.6-11.0); Carbon Dioxide 19.7 mmol/L (21.0-32.0); Chloride 105 mmol/L (98-108); Estimated Creatinine Clearance 32.43 ml/min (50-250); Glucose 127 mg/dL (70-99); Potassium 4.3 mmol/L (3.3-5.1)
[2025-09-05 06:05] LABS: Differential Comment SCANNED
[2025-09-05 11:00] VITALS: BP 139/64; PULSE 94; RESP 16; TEMP 36.8; O2SAT 97
[2025-09-05 17:00] VITALS: BP 135/64; PULSE 89; RESP 16; TEMP 36.8; O2SAT 98
[2025-09-05 21:28] VITALS: BP 155/72; PULSE 94; RESP 18; TEMP 36.9; O2SAT 96
[2025-09-05] MEDS: Latanoprost 0.005% 1 Bottle 1 DRP OPHTHALMIC (21:40)
[2025-09-06 03:34] VITALS: BP 116/57; PULSE 85; RESP 19; TEMP 36.9; O2SAT 93
[2025-09-06 04:46] LABS: Hematocrit 23.1 % (40-54); Hemoglobin 7.9 g/dL (13.0-16.5); Immature Granulocytes Count 0.020 X10^3/uL (0.0-0.0); Mean Corp Hgb Conc 34.2 g/dL (32-36); Mean Corpuscular Volume 98.7 fL (80-94); Mean Platelet Vol. 9.8 fl (6.2-12.0); NRBC Flagged by Analyzer 0 % (0-5); POSITIVE DIFFERENTIAL YES; Platelet Count 160 K/mm3 (150-450); RBC Distribution Width CV 13.0 % (11.6-14.6); RBC Distribution Width SD 46.4 fl (35.1-43.9); Red Blood Count 2.34 M/mm3 (4.6-6.2); White Blood Count 5.9 K/mm3 (4.4-11.0)
[2025-09-06 05:13] LABS: Anion Gap 11 (5-15); BUN 24 mg/dL (4-19); BUN/Creat Ratio 22.6 RATIO (10-20); Calcium,Total 8.4 mg/dL (7.6-11.0); Carbon Dioxide 19.8 mmol/L (21.0-32.0); Chloride 98 mmol/L (98-108); Estimated Creatinine Clearance 41.60 ml/min (50-250); Glucose 102 mg/dL (70-99); Potassium 3.9 mmol/L (3.3-5.1)
--- NOTE | 2025-09-06 07:36 | DCINST_ITS ---
Discharge Instructions DC O2, CPAP, BIPAP needs Home O2 Discharge instructions: No Dressing / Incision Discharge Activity: Return to Normal Activity Dressing / Incision Call your doctor if you observe: Fever of 101 or Higher Follow Up Care Please Follow Up With: Issac Maravilla MD When: Call [phone] for an appointment Test Results: Test results from this visit will be discussed in further detail at your follow- up appointment, if applicable. Discharge Plan Admission Admit Date/Time: 09/04/25 15:27 Attending Provider: Issac Maravilla Primary Care Provider: Care Physician,Kaylee Primary Discharge Orders/Prescriptions Prescriptions: No Action folic acid 1 mg tablet 2 mg PO DAILY acetaminophen [Tylenol Arthritis Pain] 650 mg tablet extended release 650 mg PO Q8H PRN (Reason: pain) latanoprost 0.005 % drops 1 drp ophthalmic (eye) QPM Rx Instructions: both eyes methotrexate sodium 2.5 mg tablet 12.5 mg PO WE lutein 20 mg capsule 20 mg PO QDAY Rx Instructions: give with meal/snack tramadol 50 mg tablet 50 mg PO TID PRN PRN (Reason: pain) gabapentin 100 mg capsule 100 mg PO BID oxycodone 5 mg tablet 5 mg PO Q6H PRN (Reason: pain) 7 Days Qty: 20 0RF ciprofloxacin HCl 500 mg tablet 500 mg PO BID Qty: 14 0RF docusate sodium [Colace] 100 mg capsule 100 mg PO BID Qty: 20 0RF atorvastatin 40 mg tablet 40 mg PO QHS Qty: 30 5RF Referrals / Follow Up: Care Physician,No Primary [Primary Care Provider, Medical]
--- NOTE | 2025-09-06 07:37 | DS.PCM_ITS ---
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 After simple polypectomy patient was stable urine was clear we will remove the Ortiz catheter today and patient will be able to go home today and tolerating regular diet moving his bowels and he is clinically stable. Weight / BMI Weight Weight: 56.699 kg Body Mass Index (BMI) 20.7 ABG / Lab / Microbiology Data 09/06/25 03:47 09/06/25 03:47 Laboratory: Laboratory Results - last 24 hr 09/06/25 03:47: WBC 5.9, RBC 2.34 L, Hgb 7.9 L, Hct 23.1 L, MCV 98.7 H, MCH 33.8 H, MCHC 34.2, RDW Std Deviation 46.4 H, RDW Coeff of Jaky 13.0, Plt Count 160, MPV 9.8, Immature Gran % (Auto) 0.300, Neut % (Auto) 91.3 H, Lymph % (Auto) 6.2 L, [place] % (Auto) 1.7, Eos % (Auto) 0.3, Baso % (Auto) 0.2, Absolute Neuts (auto) 5.4, Absolute Lymphs (auto) 0.37 L, Nucleated RBC % 0, Sodium 129 L, Potassium 3.9, Chloride 98, Carbon Dioxide 19.8 L, Anion Gap 11, BUN 24 H, Creatinine 1.06, Estim Creat Clear Calc 41.60 L, Est GFR (MDRD) Non-Af 69, BUN/Creatinine Ratio 22.6 H, Glucose 102 H, Calcium 8.4 D/C Instructions Call your doctor if you observe: Fever of 101 or Higher DC O2, CPAP, BIPAP Needs Home O2 Discharge instructions: No Please Follow Up With: Issac Maravilla MD When: Call [phone] for an appointment Meaningful Use Info Meaningful Use Meaningful Use Diagnoses (Choose all that apply): None applicable Discharge Plan Admission Admit Date/Time: 09/04/25 15:27 Attending Provider: Issac Maravilla Primary Care Provider: Care Physician,Kaylee Primary Discharge Orders/Prescriptions Prescriptions: No Action folic acid 1 mg tablet 2 mg PO DAILY acetaminophen [Tylenol Arthritis Pain] 650 mg tablet extended release 650 mg PO Q8H PRN (Reason: pain) latanoprost 0.005 % drops 1 drp ophthalmic (eye) QPM Rx Instructions: both eyes methotrexate sodium 2.5 mg tablet 12.5 mg PO WE lutein 20 mg capsule 20 mg PO QDAY Rx Instructions: give with meal/snack tramadol 50 mg tablet 50 mg PO TID PRN PRN (Reason: pain) gabapentin 100 mg capsule 100 mg PO BID oxycodone 5 mg tablet 5 mg PO Q6H PRN (Reason: pain) 7 Days Qty: 20 0RF ciprofloxacin HCl 500 mg tablet 500 mg PO BID Qty: 14 0RF docusate sodium [Colace] 100 mg capsule 100 mg PO BID Qty: 20 0RF atorvastatin 40 mg tablet 40 mg PO QHS Qty: 30 5RF Referrals / Follow Up: Care Physician,No Primary [Primary Care Provider, Medical]
[2025-09-06 08:44] VITALS: BP 136/72; PULSE 96; RESP 17; TEMP 37.3; O2SAT 96
--- NOTE | 2025-09-06 11:39 | CASEMGMT ---
PARAS PRATHER Assessment: Face to Face with pt for initial transition planning/care coordination assessment. PARAS PRATHER introduced self and role at [facility], pt voices understanding and consents to assessment. Pt is A&O x4 and answers all questions appropriately at this time. Pt sitting up in bed in no distress. Care providers, pharmacy, and demographics verified/updated. Strata: 2 Admitting Dx: Post op pain, Hematuria PCP: Samy Raphael, sees a [employer]ET[employer]ORCH SOLDERER but does not recall her name. Specialists: Denies Preferred Pharmacy: [facility] Insurance: [facility]. Prescription Benefit: yes LNOK: , Ana; Daughter, Ling. Living Arrangements: Pt lives with in a home with 3 steps to enter. ADLs: Pt states I with ADLs, needing some assistance with IADLs lately. Transportation: Pt family provides transportation. DME: walker, shower bench. HHC/SNF: Previously at [facility]. Active with [facility], would like to resume services. Pt states he gets PT and SN. Pt states no concerns with going home at time of dc. 6 clicks = 18. Pt states no further concerns/needs. CM to follow. Advised pt to ask CM if any further question/concerns/needs arise, voices understanding. PARAS PRATHER gave report to PARAS PRATHER on floor. Pt Goal: Home with HHC Plan: Home with C JENNIFER Larson RN, CM
--- NOTE | 2025-09-06 12:11 | CASEMGMT ---
Addendum entered by Nadine Portillo 09/06/25 12:42: [facility] acknowledge JENNIFER. Original Note: Discharge Planning JENNIFER referral sent to [facility]. Nadine Portillo DC Planning Asst.
[2025-09-06 13:47] VITALS: BP 150/59; PULSE 108; RESP 18; TEMP 36.6; O2SAT 99
--- NOTE | 2025-09-06 14:09 | PHA.DC.MR.R ---
Pharmacy [place] Med Reconciliation Pharmacy Service has performed discharge medication reconciliation for this patient. The patient's discharge medication list was reviewed for discrepancies and discrepancies were resolved. 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
== END 2025-09-06 14:40 | disposition home or self-care (01) | DRG 941 ==
LOC: ED 15:06 → MS3 15:52
PROVIDERS: Admitting Provider Urology; Emergency Provider Emergency Medicine; Visit Provider Urology
DX: G89.18 Other acute postprocedural pain (principal); D29.1 Benign neoplasm of prostate; D30.3 Benign neoplasm of bladder; R31.9 Hematuria, unspecified; R33.8 Other retention of urine; Z87.891 Personal history of nicotine dependence; Z79.899 Other long term (current) drug therapy
CPT/HCPCS: 36415; 74176; 80048; 85025; 88307; 88309; 94668; 99284; A4216; J0744; J2405; J8610

== ENCOUNTER 2025-09-08 08:19 | Emergency (ER) | payer MEDICARE, SELFPAY ==
[2025-09-08 08:20] VITALS: BP 141/47; PULSE 95; RESP 16; TEMP 35.9; O2SAT 98
--- OUTSIDE RECORDS SUMMARY | 2025-09-08 08:38 | XMS RPT_ITS | CCD ---
Author Organization [facility] Care Team Providers Care Typing Section Chief Name Role Phone BRENNAN BARROS Attending Unavailable BRENNAN BARROS Primary Care Unavailable BRENNAN BARROS Admitting Unavailable Dr. Blake Gonzalez Attending Provider [phone] Cody Delaney Primary Care Provider Unavailable Primary Care Provider Unavailabl e Reanna Maldonado Attending Provider [phone] Reanna Maldonado Referring Provider [phone] Care Physician, No Primary Primary Care Provider Unavailable Dr. Blake Gonzalez MD Attending Provider [phone] Cody Delaney Primary Care Unavailable Diaz, Reanna [...] on above: Take 1 capsule by mo [facility] three times a day as needed for cough. folic acid 1 mg oral tablet (5 sources) Start: 4 take 2 tablets by mouth once folic acid 1 mg tablet Take 2 tablets by mouth every afternoon. 0 11/12/2023 Active Start: 02-25-2023 [facility] F[facility] Acid 1 mg tablet Active 1 mg PO TWICE A DAY February 25, 2023 12:00am Complies with drug therapy Comment on above: Take 2 tablets by mo [facility] every afternoon. 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; Translations: [Other alf (current) drug therapy] Onset: 07-01-2025 Episodic Other [...] eGFRon 07-27-2025 AGE 84 years Normal [facility] Comment on above: Performed By: #### 2 91539 ####[facility],[address] [place] [address] Anion gap [Moles/Vol] 9 mmol/L Low 10 - 20 [facility] Comment on above: Performed By: #### 2 73128 ####[facility],[address] [place] [address] BMP with eGFR Normal [facility] Comment on above: Result Comment: BASI C METABOLIC PANEL Performed By: #### 2 26396 ####[facility],[address] [place] [address] Calcium [Mass/Vol] 8.2 mg/dL Low 8.5 - 10.1 [facility] Comment on above: Performed By: #### 2 16099 ####[facility],[address] [place], [place] [id number] Chloride [Moles/Vol] 99 mmol/L Normal 98 - 107 [facility] Comment on above: Performed By: #### 2 87080 ####[facility],[address] [place], [place] [address] CO2 [Moles/Vol] 26.1 mmol/L Normal 21.0 - 32.0 [facility] Comment on above: Performed By: #### 2 60231 ####[facility],[address] [place] [address] Creatinine [Mass/Vol] 0.96 mg/dL Normal 0.70 - 1.30 [facility] Comment on above: Performed By: #### 2 34086 ####[facility],[address] [place] [address] GFR/1.73 sq M.predicted among non-blacks MDRD (S/P/Bld) [Vol rate/Area] mL/min/{1.73_m2} Normal 60 - 999 [facility] Comment on above: Performed By: #### 2 07573 ####[facility],[address] [place] [address] Result Comment: ACCO RDING TO THE NATIONAL KIDNEY DISEASE EDUCATION PROGRAM(NKDE), A NORMAL eGFR IS A VALUE GREATER THAN OR EQUAL TO 60 ML/MIN/1.73 SQ METERS. CHRONIC KIDNEY DISEASE: <60mL/MIN/1.73 SQ METERS KIDNEY FAILURE: <15mL/MIN/1.73 SQ METERS THIS TEST SHOULD ONLY BE USED FOR PATIENTS 18 YEARS OF AGE AND OLDER. Glucose [Mass/Vol] 83 mg/dL Normal 74 - 106 [facility] Comment on above: Performed By: #### 2 27730 ####[facility],[address] [place], [place] [id number] Potassium [Moles/Vol] 4.2 mmol/L Normal 3.5 - 5.1 [facility] Comment on above: Performed By: #### 2 25323 ####[facility],[address] [place] [address] 01246 Sodium [Moles/Vol] 130 mmol/L Low 136 - 145 [facility] Comment on above: Performed By: #### 2 37404 ####[facility],[address] [place] [address] 03724 Urea nitrogen [Mass/Vol] 20 mg/dL High 7 - 18 [facility] Comment on above: Performed By: #### 2 71401 ####[facility],[address] [place] [address] 93660 B12 FOLATE PANELon Cobalamin (Vitamin B12) [Mass/Vol] 1094 pg/mL High 193 - 986 [facility] Comment on above: Performed By: #### 2 52111 #### [facility],[address] [place] [address] 66557 FOLATES 37.7 ng/ml Normal 8.6 - 58.9 [facility] Comment on above: Performed By: #### 2 78213 #### [facility],[address] [place] [address] 96439 CBC + DIFFon 07-26-2025 Baso # 0.02 x10EE3/UL Normal 0.00 - 0.10 [facility] Comment on above: Performed By: #### 2 86377 ####[facility],[address] [place] [address] 69196 Basophils/100 WBC (Bld) 0.3 % Normal 0.0 - 2.0 [facility] Comment on above: Performed By: #### 2 37637 ####[facility],[address] [place] [address] 95307 CBC + DIFF Normal [facility] Comment on above: Result Comment: CBC- COMPLETE BLOOD COUNT Performed By: #### 2 79785 ####[facility],[address] [place] [address] 09514 EO # 0.08 x10EE3/UL Normal 0.00 - 0.50 [facility] Comment on above: Performed By: #### 2 00773 ####[place] [address] Eosinophils/100 WBC (Bld) 1.1 % Normal 0.0 - 7.0 [facility] Comment on above: Performed By: #### 2 24862 ####[facility],[address] [place] [address] Erythrocyte distribution width (RBC) [Ratio] 12.9 % Normal 12.0 - 15.6 [facility] Comment on above: Performed By: #### 2 90474 ####[place] [address] Hematocrit (Bld) [Volume fraction] 39.3 % Low 40.0 - 52.0 [facility] Comment on above: Performed By: #### 2 03707 ####[place] [address] Hemoglobin (Bld) [Mass/Vol] 13.6 g/dL Normal 13.0 - 17.5 [facility] Comment on above: Performed By: #### 2 79389 ####[place] [address] Lymph # 0.84 x10EE3/UL Normal 0.80 - 2.80 [facility] Comment on above: Performed By: #### 2 97823 ####[place] [id number] Lymphocytes/100 WBC (Bld) 11.1 % Low 20.0 - 45.0 [facility] Comment on above: Performed By: #### 2 68605 ####[place] [id number] MANUAL DIFF N/A Normal [facility] Comment on above: Performed By: #### 2 68753 ####[place] [address] MCH (RBC) [Entitic mass] 34 pg High 27 - 33 [facility] Comment on above: Performed By: #### 2 36614 ####[facility],[address] [place] [address] MCHC 35 X10 3 Normal 32 - 36 [facility] Comment on above: Performed By: #### 2 48637 ####[facility],[address] [place] [address] MCV (RBC) [Entitic vol] 98 fL Normal 81 - 98 [facility] Comment on above: Performed By: #### 2 05764 ####[facility],[address] [place] [address] Rhea # 1.40 x10EE3/UL High 0.20 - 1.00 [facility] Comment on above: Performed By: #### 2 51880 ####[facility],[address] [place] [address] MONOS % 18.5 % High 0.0 - 10.0 [facility] Comment on above: Performed By: #### 2 48005 ####[facility],[address] [place] [address] Morphology Yao (Bld) [Interp] N/A Normal [facility] Comment on above: Performed By: #### 2 98125 ####[facility],[address] [place] [address] Neut # 5.23 x10EE3/UL Normal 1.50 - 7.10 [facility] Comment on above: Performed By: #### 2 47648 ####[facility],[address] [place] [address] Neutrophils/100 WBC (Bld) 69.0 % Normal 46.0 - 76.0 [facility] Comment on above: Performed By: #### 2 54739 ####[facility],[address] [place] [address] PLATELET 127 x10EE3/UL Low 150 - 450 [facility] Comment on above: Performed By: #### 2 83162 ####[facility],[address] [place] [address] 42378 Platelet mean volume (Bld) [Entitic vol] 8.6 fL Normal 6.4 - 10.5 [facility] Comment on above: Result Comment: AUTO MATED DIFFERENTIAL Performed By: #### 2 02233 ####[facility],[address] [place] [address] RBC 4.03 x 10EE6/UL Low 4.50 - 6.00 [facility] Comment on above: Performed By: #### 2 22251 ####[facility],[address] [place], [place] [address] WBC 7.6 x 10EE3/UL Normal 4.5 - 10.8 [facility] Comment on above: Performed By: #### 2 55172 ####[facility],[address] [place], [place] [address] CMP with eGFRon 07-26-2025 AGE 84 years Normal [facility] Comment on above: Performed By: #### 2 00910 ####[facility],[address] [place], [place] [address] Albumin [Mass/Vol] 2.5 g/dL Low 3.4 - 5.0 [facility] Comment on above: Performed By: #### 2 78465 ####[facility],[address] [place], [place] [address] Albumin/Globulin [Mass ratio] 0.9 {ratio} Normal 0.9 - 1.6 [facility] Comment on above: Performed By: #### 2 89329 ####[facility],[address] [place] [address] 79929 ALK PHOS 67 U/L Normal 46 - 116 [facility] Comment on above: Performed By: #### 2 87560 ####[facility],[address] [place] [address] 55689 ALT [Catalytic activity/Vol] 17 U/L Normal 16 - 63 [facility] Comment on above: Performed By: #### 2 81394 ####[facility],[address] [place] [address] 03955 Anion gap [Moles/Vol] 11 mmol/L Normal 10 - 20 [facility] Comment on above: Performed By: #### 2 37339 ####[facility],[address] [place] [address] 75023 AST [Catalytic activity/Vol] 23 U/L Normal 15 - 37 [facility] Comment on above: Performed By: #### 2 56008 ####[facility],[address] [place] [address] 19887 B/C RATIO 18 ratio Normal 0 - 30 [facility] Comment on above: Performed By: #### 2 88109 ####[facility],[address] [place] [address] 78070 Bilirubin [Mass/Vol] 0.7 mg/dL Normal 0.2 - 1.0 [facility] Comment on above: Performed By: #### 2 43380 ####[facility],[address] [place] [address] 21267 Calcium [Mass/Vol] 8.0 mg/dL Low 8.5 - 10.1 [facility] Comment on above: Performed By: #### 2 17230 ####[facility],[address] [place] [address] 44393 Chloride [Moles/Vol] 98 mmol/L Normal 98 - 107 [facility] Comment on above: Performed By: #### 2 35424 ####[facility],[address] [place] [address] 82433 CMP with eGFR Normal [facility] Comment on above: Result Comment: COMP REHENSIVE METABOLIC PANEL Performed By: #### 2 20609 ####[facility],[address] [place], [place] [address] CO2 [Moles/Vol] 23.5 mmol/L Normal 21.0 - 32.0 [facility] Comment on above: Performed By: #### 2 16558 ####[facility],[address] [place] [address] 03482 Creatinine [Mass/Vol] 0.95 mg/dL Normal 0.70 - 1.30 [facility] Comment on above: Performed By: #### 2 06081 ####[facility],[address] [place], [place] [address] GFR/1.73 sq M.predicted among non-blacks MDRD (S/P/Bld) [Vol rate/Area] mL/min/{1.73_m2} Normal 60 - 999 [facility] Comment on above: Performed By: #### 2 47912 ####[facility],[address] [place] [address] Result Comment: ACCO RDING TO THE NATIONAL KIDNEY DISEASE EDUCATION PROGRAM(NKDE), A NORMAL eGFR IS A VALUE GREATER THAN OR EQUAL TO 60 ML/MIN/1.73 SQ METERS. CHRONIC KIDNEY DISEASE: <60mL/MIN/1.73 SQ METERS KIDNEY FAILURE: <15mL/MIN/1.73 SQ METERS THIS TEST SHOULD ONLY BE USED FOR PATIENTS 18 YEARS OF AGE AND OLDER. Globulin (S) [Mass/Vol] 2.9 g/dL Normal 1.5 - 3.8 [facility] Comment on above: Performed By: #### 2 16615 ####[facility],[address] [place] [address] 26932 Glucose [Mass/Vol] 95 mg/dL Normal 74 - 106 [facility] Comment on above: Performed By: #### 2 08303 ####[facility],[address] [place] [address] 31532 Potassium [Moles/Vol] 3.9 mmol/L Normal 3.5 - 5.1 [facility] Comment on above: Performed By: #### 2 55533 ####[facility],[address] [place] [address] 08401 Protein [Mass/Vol] 5.4 g/dL Low 6.4 - 8.2 [facility] Comment on above: Performed By: #### 2 73002 ####[facility],[address] [place] [address] 67032 Sodium [Moles/Vol] 129 mmol/L Low 136 - 145 [facility] Comment on above: Performed By: #### 2 62013 ####[facility],[address] [place] [address] 73776 Urea nitrogen [Mass/Vol] 17 mg/dL Normal 7 - 18 [facility] Comment on above: Performed By: #### 2 10029 ####[facility],[address] [place] [address] 32374 TSH W/ REFLEX TO FREE T4on 1 09-25-2024 TSH Qn 3.54 m[IU]/L Normal 0.34 - 5.60 [facility] Comment on above: Performed By: #### 2 98869 #### [facility],[address] [place] [address] 63598 URINALYSISon 07-26-2025 Amorphous NONE Normal [facility] Comment on above: Performed By: #### 2 60112 ####[facility],[address] [place] [address] 56846 Bacteria TRACE Normal [facility] Comment on above: Performed By: #### 2 95832 ####[facility],[address] [place] [address] 64401 Bilirubin Ql (U) Negative Normal NORMAL: NEGATIVE [facility] Comment on above: Performed By: #### 2 00573 ####[facility],[address] [place] [address] 82478 Casts NONE Normal [facility] Comment on above: Performed By: #### 2 99730 ####[facility],[address] [place], [place] [address] Clarity (U) clear Normal NORMAL: CLEAR [facility] Comment on above: Performed By: #### 2 90406 ####[facility],[address] [place], [place] [address] Color (U) p.yel Normal NORMAL: YELLOW [facility] Comment on above: Performed By: #### 2 09335 ####[facility],[address] [place], [place] [address] Crystals LM Nom (Urine sed) NONE Normal [facility] Comment on above: Performed By: #### 2 79088 ####[facility],[address] [place], [place] [address] Epi Cells NONE Normal [facility] Comment on above: Performed By: #### 2 11178 ####[facility],[address] [place], [place] [address] Glucose Ql (U) NORM Normal NORMAL: NORMAL [facility] Comment on above: Performed By: #### 2 14162 ####[facility],[address] [place] [address] 34140 Hemoglobin Ql (U) 150 Abnormal NORMAL: NEGATIVE [facility] Comment on above: Performed By: #### 2 96244 ####[facility],[address] [place] [address] 05343 Ketone Negative Normal NORMAL: NEGATIVE [facility] Comment on above: Performed By: #### 2 45592 ####[facility],[address] [place] [address] 67074 Leukocytes Negative Normal NORMAL: NEGATIVE [facility] Comment on above: Performed By: #### 2 38977 ####[facility],[address] [place] [address] 72636 Mucous NONE Normal [facility] Comment on above: Performed By: #### 2 06281 ####[facility],[address] [place] [address] 16133 Nitrite Ql (U) Negative Normal NORMAL: NEGATIVE [facility] Comment on above: Performed By: #### 2 63023 ####[facility],[address] [place] [address] pH (U) 6 [pH] Normal NORMAL: 5.0-8.0 [facility] Comment on above: Performed By: #### 2 23128 ####[facility],[address] [place] [address] Protein Ql (U) 15 Abnormal NORMAL: NEGATIVE [facility] Comment on above: Performed By: #### 2 96190 ####[facility],[address] [place] [address] Rbc 5-10 Normal 0-3/hpf [facility] Comment on above: Performed By: #### 2 03526 ####[facility],[address] [place] [address] Sp Thor 1.010 Normal NORMAL: 1.010-1.030 [facility] Comment on above: Performed By: #### 2 89389 ####[facility],[address] [place] [address] Specimen Type Catheter Normal [facility] Comment on above: Performed By: #### 2 86397 ####[facility],[address] [place] [address] Urinalysis dipstick W Reflex Microscopic panel (U) SEE BELOW Normal [facility] Comment on above: Result Comment: MICR OSCOPIC Performed By: #### 2 72046 ####[facility],[address] [place] [address] Urobilinog NORM Normal NORMAL: NORMAL [facility] Comment on above: Performed By: #### 2 39790 ####[facility],[address] [place] [address] Wbc NONE Normal 0-5/hpf [facility] Comment on above: Performed By: #### 2 42643 ####[facility],[address] [place] [address] 49208 Yeast NONE Normal [facility] Comment on above: Performed By: #### 2 35002 ####[facility],[address] [place] [address] 62207 VITAMIN B-12on 07-26-2025 Cobalamin (Vitamin B12) [Mass/Vol] 1094 pg/mL High 193 - 986 [facility] Comment on above: Performed By: #### 2 56541 #### [facility],[address] [place] [address] 98247 VITAMIN D, 25 HYDROXYon 07-17 VitD 35.80 ng/mL Normal 30.00 - 100 [facility] Comment on above: Result Comment: 25-O [...] D2 Not Established Performed By: #### 2 29852 ####[facility],[address] [place] [address] 70249 CBC + DIFFon 07-25-2025 Baso # 0.03 x10EE3/UL Normal 0.00 - 0.10 [facility] Comment on above: Performed By: #### 2 75022 ####[facility],[address] [place] [address] 64226 Basophils/100 WBC (Bld) 0.3 % Normal 0.0 - 2.0 [facility] Comment on above: Performed By: #### 2 05806 ####[facility],[address] [place] [address] 45221 CBC + DIFF Normal [facility] Comment on above: Result Comment: CBC- COMPLETE BLOOD COUNT Performed By: #### 2 09914 ####[facility] [place] [address] 70671 EO # 0.07 x10EE3/UL Normal 0.00 - 0.50 [facility] Comment on above: Performed By: #### 2 76909 ####[facility],[address] [place] [address] 99296 Eosinophils/100 WBC (Bld) 0.8 % Normal 0.0 - 7.0 [facility] Comment on above: Performed By: #### 2 06917 ####[facility],[address] [place] [address] Erythrocyte distribution width (RBC) [Ratio] 12.9 % Normal 12.0 - 15.6 [facility] Comment on above: Performed By: #### 2 47567 ####[facility],[address] [place] [address] Hematocrit (Bld) [Volume fraction] 41.0 % Normal 40.0 - 52.0 [facility] Comment on above: Performed By: #### 2 30989 ####[facility],[address] [place] [address] Hemoglobin (Bld) [Mass/Vol] 14.4 g/dL Normal 13.0 - 17.5 [facility] Comment on above: Performed By: #### 2 65591 ####[facility],[address] [place] [address] 61042 Lymph # 0.71 x10EE3/UL Low 0.80 - 2.80 [facility] Comment on above: Performed By: #### 2 24828 ####[facility],[address] [place] [address] 10940 Lymphocytes/100 WBC (Bld) 7.7 % Low 20.0 - 45.0 [facility] Comment on above: Performed By: #### 2 72358 ####[facility],[address] [place], [place] [address] MANUAL DIFF N/A Normal [facility] Comment on above: Performed By: #### 2 26613 ####[facility],[address] [place] [address] 87128 MCH (RBC) [Entitic mass] 34 pg High 27 - 33 [facility] Comment on above: Performed By: #### 2 00872 ####[facility],[address] [place] [address] 27774 MCHC 35 X10 3 Normal 32 - 36 [facility] Comment on above: Performed By: #### 2 68426 ####[facility],[address] [place] [address] 56043 MCV (RBC) [Entitic vol] 98 fL Normal 81 - 98 [facility] Comment on above: Performed By: #### 2 43815 ####[facility],[address] [place] [address] 88198 Rhea # 1.47 x10EE3/UL High 0.20 - 1.00 [facility] Comment on above: Performed By: #### 2 30561 ####[facility],[address] [place] [address] 19526 MONOS % 15.9 % High 0.0 - 10.0 [facility] Comment on above: Performed By: #### 2 93986 ####[facility],[address] [place] [address] 53336 Morphology Yao (Bld) [Interp] N/A Normal [facility] Comment on above: Performed By: #### 2 01511 ####[facility],[address] [place] [address] 07715 Neut # 6.96 x10EE3/UL Normal 1.50 - 7.10 [facility] Comment on above: Performed By: #### 2 56498 ####[facility],[address] [place] [address] 91518 Neutrophils/100 WBC (Bld) 75.3 % Normal 46.0 - 76.0 [facility] Comment on above: Performed By: #### 2 96536 ####[facility],[address] [place] [address] 67235 PLATELET 118 x10EE3/UL Low 150 - 450 [facility] Comment on above: Performed By: #### 2 28273 ####[facility],[address] [place] [address] 94328 Platelet mean volume (Bld) [Entitic vol] 8.7 fL Normal 6.4 - 10.5 [facility] Comment on above: Result Comment: AUTO MATED DIFFERENTIAL Performed By: #### 2 51054 ####[facility],[address] [place] [address] 36498 RBC 4.19 x 10EE6/UL Low 4.50 - 6.00 [facility] Comment on above: Performed By: #### 2 87972 ####[facility],[address] [place] [address] 82839 WBC 9.2 x 10EE3/UL Normal 4.5 - 10.8 [facility] Comment on above: Performed By: #### 2 23887 ####[facility],[address] [place] [address] 89854 CMP with eGFRon 07-25-2025 AGE 84 years Normal [facility] Comment on above: Performed By: #### 2 03286 #### [facility],[address] [place] [address] 75412 Albumin [Mass/Vol] 2.9 g/dL Low 3.4 - 5.0 [facility] Comment on above: Performed By: #### 2 15575 #### [facility],[address] [place] [address] 06305 Albumin/Globulin [Mass ratio] 0.9 {ratio} Normal 0.9 - 1.6 [facility] Comment on above: Performed By: #### 2 76988 #### [facility],[address] [place] [address] 39041 ALK PHOS 86 U/L Normal 46 - 116 [facility] Comment on above: Performed By: #### 2 94776 #### [facility],[address] [place] [address] 54377 ALT [Catalytic activity/Vol] 18 U/L Normal 16 - 63 [facility] Comment on above: Performed By: #### 2 03599 #### [facility],[address] [place] [address] Anion gap [Moles/Vol] 12 mmol/L Normal 10 - 20 [facility] Comment on above: Performed By: #### 2 62857 #### [facility],[address] [place] [address] AST [Catalytic activity/Vol] 23 U/L Normal 15 - 37 [facility] Comment on above: Performed By: #### 2 33810 #### [facility],[address] [place] [address] B/C RATIO 25 ratio Normal 0 - 30 [facility] Comment on above: Performed By: #### 2 03442 #### [facility],[address] [place] [address] 21605 Bilirubin [Mass/Vol] 0.8 mg/dL Normal 0.2 - 1.0 [facility] Comment on above: Performed By: #### 2 13929 #### [facility],[address] [place] [address] 00758 Calcium [Mass/Vol] 8.8 mg/dL Normal 8.5 - 10.1 [facility] Comment on above: Performed By: #### 2 32755 #### [facility],[address] [place] [address] 51565 Chloride [Moles/Vol] 96 mmol/L Low 98 - 107 [facility] Comment on above: Performed By: #### 2 71304 #### [facility],[address] [place] [address] 48583 CMP with eGFR Normal [facility] Comment on above: Result Comment: COMP REHENSIVE METABOLIC PANEL Performed By: #### 2 09786 #### [facility],[address] [place] [address] 71124 CO2 [Moles/Vol] 25.6 mmol/L Normal 21.0 - 32.0 [facility] Comment on above: Performed By: #### 2 18836 #### [place] [id number] Creatinine [Mass/Vol] 1.16 mg/dL Normal 0.70 - 1.30 [facility] Comment on above: Performed By: #### 2 05049 #### [facility],[address] [place] [address] 71868 eGFR 60 ML/MINUTE Normal 60 - 999 [facility] Comment on above: Performed By: #### 2 15216 #### [place] [id number] GFR/1.73 sq M.predicted among non-blacks MDRD (S/P/Bld) [Vol rate/Area] mL/min/{1.73_m2} Normal 60 - 999 [facility] Comment on above: Result Comment: ACCO RDING TO THE NATIONAL KIDNEY DISEASE EDUCATION PROGRAM(NKDE), A NORMAL eGFR IS A VALUE GREATER THAN OR EQUAL TO 60 ML/MIN/1.73 SQ METERS. CHRONIC KIDNEY DISEASE: <60mL/MIN/1.73 SQ METERS KIDNEY FAILURE: <15mL/MIN/1.73 SQ METERS THIS TEST SHOULD ONLY BE USED FOR PATIENTS 18 YEARS OF AGE AND OLDER. Performed By: #### 2 01264 #### [facility],[address] [place] [address] 84539 Globulin (S) [Mass/Vol] 3.3 g/dL Normal 1.5 - 3.8 [facility] Comment on above: Performed By: #### 2 40385 #### [address] [address] Glucose [Mass/Vol] 106 mg/dL Normal 74 - 106 [facility] Comment on above: Performed By: #### 2 64191 #### [facility],[address] [place] [address] Potassium [Moles/Vol] 4.0 mmol/L Normal 3.5 - 5.1 [facility] Comment on above: Performed By: #### 2 88925 #### [facility],[address] [place] [address] Protein [Mass/Vol] 6.2 g/dL Low 6.4 - 8.2 [facility] Comment on above: Performed By: #### 2 95656 #### [facility],[address] [place] [address] Sodium [Moles/Vol] 130 mmol/L Low 136 - 145 [facility] Comment on above: Performed By: #### 2 95575 #### [facility],[address] [place] [address] Urea nitrogen [Mass/Vol] 29 mg/dL High 7 - 18 [facility] Comment on above: Performed By: #### 2 35303 #### [facility],[address] [place] [address] CORONAVIRUS (SARS) ANTIGEN T ESTon 07-25-2025 EXTERNAL QC DONE? YES Normal [facility] Comment on above: Performed By: #### 2 24780 #### [facility],[address] [place] [address] INTERNAL CONTROL PASS Normal [facility] Comment on above: Performed By: #### 2 28449 #### [facility],[address] [place] [address] SARS ANTIGEN Negative Normal NORMAL: NEGATIVE [facility] Comment on above: Performed By: #### 2 41595 #### [facility],[address] [place] [address] SEND TO ? NO Normal [facility] Comment on above: Result Comment: SARS -CoV-2 THIS TEST IS BEING USED UNDER THE FDA EUA PROCEDURE. THIS ASSAY HAS BEEN VALIDATED AT [facility] FOR USE WITH NASAL [...] PUBLIC HEALTH AUTHORITIES. Performed By: #### 2 36183 #### [facility],[address] [place], [place] [address] CT BRAIN W/O CONTRASTon 11-0 CT BRAIN W/O CONTRAST [address] ? [place], [place] [address] ? Patient: SABIHA WEBBER Phone#: : 1940 Age: 84 Gender: M Pt. Type: ER Account: [id number] Location: 052 Ordering: DR. MADHAVI HARRISONDAJENISE Exam Date: 07/25/2025/9:50 Family Phys: VIRGIE SHAYURSZULA Charge Code: 665032 Physician: Lyon Order #: [id number] Dose#: 52.3 mGy PROCEDURE: CT BRAIN WITHOUT CONTRAST COMPARISON: [facility], CT, BRAIN W/O CON, 07/03/2022, 17:58. INDICATIONS: [...] MD on 07/25/2025 at 10:[address] [facility] [address] CHEST (PE PROTOCOL)on CT CHEST (PE PROTOCOL) [address] ? [place] [address] ? Patient: SABIHA WEBBER Phone#: : 1940 Age: 84 Gender: M Pt. Type: ER Account: [id number] Location: 052 Ordering: DR. MADHAVI SYED Exam Date: 07/25/2025/11:59 Family Phys: VIRGIE GILBERTSTEFFEN Charge Code: 028531 Physician: Lyon Order #: [id number] Dose#: 5.3 mGy PROCEDURE: CT CHEST WITH CONTRAST FOR PE COMPARISON: [facility], CT, CHEST W/O CON, 07/25/2025, 9:54. INDICATIONS: [...] 84 Gender: M Pt. Type: ER Account: [id number] Location: 2 Ordering: DR. MADHAVI SYED Exam Date: 07/25/2025/11:59 Family Phys: VIRGIE GAMBOA Charge Code: [id number] Physician: Lyon Order #: [id number] Dose#: 5.3 mGy CONCLUSION: 1. There is [...] of filling defect is uncertain. Dictated by: Lluy Zambrano MD on 07/25/2025 at 12:33 Approved by: Luly Zambrano MD on 07/25/2025 at 12:[address] [facility] [address] CHEST W/O CONTRASTon 11-0 CT CHEST W/O CONTRAST [address] ? [place] [address] ? Patient: SABIHA WEBBER Phone#: : 1940 Age: 84 Gender: M Pt. Type: ER Account: [id number] Location: [facility] Ordering: DR. MADHAVI SYED Exam Date: 07/25/2025/9:54 Family Phys: VIRGIE GILBERTSTEFFEN Charge Code: 310422 Physician: Lyon Order #: [id number] Dose#: 4.1 mGy PROCEDURE: CT CHEST WITHOUT CONTRAST COMPARISON: [facility], CT, CHEST/ABDOMEN/PELVIS W CON, 07/03/2022, 18:13. INDICATIONS: [...] 84 Gender: M Pt. Type: ER Account: [id number] Location: [facility] Ordering: DR. MADHAVI SYED Exam Date: 07/25/2025/9:54 Family Phys: VIRGIE GAMBOA Charge Code: 948882 Physician: Lyon Order #: [id number] Dose#: 4.1 mGy Dictated by: Luly Zambrano MD on 07/25/2025 at 10:35 Approved by: Luly Zambrano MD on 07/25/2025 at 10:44 Normal [facility] D-DIMER, QUANTITATIVEon 11-0 D-DIMER QUANT 1013 ng/ml High 0 - 230 [facility] Comment on above: Performed By: #### 2 08126 ####[facility],[address] [place], [place] [address] D-DIMER, QUANTITATIVE Normal [facility] Comment on above: Result Comment: AUSTIN T D-DIMER Performed By: #### 2 66848 ####[facility],[address] [place], [place] [address] INFLUENZA VIRUS RAPID A/Bon 07-25-2025 INFLUENZA VIRUS [...] FOR UP TO THREE DAYS. Normal [facility] Comment on above: Performed By: #### 2 07581 ####[facility],[address] [place] [address] 58386 LACTATEon 07-25-2025 Lactate [Moles/Vol] 1.7 mmol/L Normal 0.4 - 2.0 [facility] Comment on above: Performed By: #### 2 72995 #### [facility],[address] [place] [address] 09613 NT-proBNPon 07-25-2025 Natriuretic peptide B (Bld) [Mass/Vol] 316 pg/mL Normal 0 - 450 [facility] Comment on above: Performed By: #### 2 06424 ####[facility],[address] [place] [address] 37252 TROPONINon 07-25-2025 HS TROPONIN 24.5 pg/mL Normal 0.0 - 76.2 [facility] Comment on above: Performed By: #### 2 73194 #### [facility],[address] [place] [address] 50751 URINALYSISon 07-25-2025 Amorphous NONE Normal [facility] Comment on above: Performed By: #### 2 93690 #### [facility],[address] [place] [address] 11919 Bacteria NONE Normal [facility] Comment on above: Performed By: #### 2 44895 #### [facility],[address] [place] [address] 66081 Bilirubin Ql (U) Negative Normal NORMAL: NEGATIVE [facility] Comment on above: Performed By: #### 2 11860 #### [facility],[address] [place] [address] 27300 Casts NONE Normal [facility] Comment on above: Performed By: #### 2 26223 #### [facility],[address] [place] [address] Clarity (U) clear Normal NORMAL: CLEAR [facility] Comment on above: Performed By: #### 2 73782 #### [facility],[address] [place], [place] [address] Color (U) yellow Normal NORMAL: YELLOW [facility] Comment on above: Performed By: #### 2 13357 #### [facility],[address] [place], [place] [address] Crystals LM Nom (Urine sed) NONE Normal [facility] Comment on above: Performed By: #### 2 70593 #### [facility],[address] [place] [address] Epi Cells NONE Normal [facility] Comment on above: Performed By: #### 2 12604 #### [facility],[address] [place], [place] [address] Glucose Ql (U) NORM Normal NORMAL: NORMAL [facility] Comment on above: Performed By: #### 2 56368 #### [facility],[address] [place] [address] 65035 Hemoglobin Ql (U) 10 Abnormal NORMAL: NEGATIVE [facility] Comment on above: Performed By: #### 2 44379 #### [facility],[address] [place] [address] 08789 Ketone Negative Normal NORMAL: NEGATIVE [facility] Comment on above: Performed By: #### 2 53322 #### [facility],[address] [place] [address] 44445 Leukocytes Negative Normal NORMAL: NEGATIVE [facility] Comment on above: Performed By: #### 2 13932 #### [facility],[address] [place] [address] 01193 Mucous NONE Normal [facility] Comment on above: Performed By: #### 2 75138 #### [facility],[address] [place] [address] 58376 Nitrite Ql (U) Negative Normal NORMAL: NEGATIVE [facility] Comment on above: Performed By: #### 2 60857 #### [facility],[address] [place] [address] pH (U) 5 [pH] Normal NORMAL: 5.0-8.0 [facility] Comment on above: Performed By: #### 2 07764 #### [facility],[address] [place] [address] Protein Ql (U) 30 Abnormal NORMAL: NEGATIVE [facility] Comment on above: Performed By: #### 2 72125 #### [facility],[address] [place] [address] Rbc 0-5 Normal 0-3/hpf [facility] Comment on above: Performed By: #### 2 98684 #### [facility],[address] [place] [address] Sp Thor 1.015 Normal NORMAL: 1.010-1.030 [facility] Comment on above: Performed By: #### 2 54028 #### [facility],[address] [place] [address] Specimen Type R Normal [facility] Comment on above: Performed By: #### 2 91705 #### [facility],[address] [place] [address] Urinalysis dipstick W Reflex Microscopic panel (U) SEE BELOW Normal [facility] Comment on above: Result Comment: MICR OSCOPIC Performed By: #### 2 19075 #### [facility],[address] [place] [address] Urobilinog NORM Normal NORMAL: NORMAL [facility] Comment on above: Performed By: #### 2 13400 #### [facility],[address] [place] [address] Wbc NONE Normal 0-5/hpf [facility] Comment on above: Performed By: #### 2 29990 #### [facility],[address] [place] [address] 59723 Yeast NONE Normal [facility] Comment on above: Performed By: #### 2 91340 #### [facility],[address] [place], [place] [address] CBC + DIFFon 07-01-2025 Baso # 0.02 x10EE3/UL Normal 0.00 - 0.10 [facility] Comment on above: Performed By: #### 2 00563 #### [facility],[address] [place] [address] 61274 Basophils/100 WBC (Bld) 0.3 % Normal 0.0 - 2.0 [facility] Comment on above: Performed By: #### 2 88485 #### [facility],[address] [place] [address] CBC + DIFF Normal [facility] Comment on above: Result Comment: CBC- COMPLETE BLOOD COUNT Performed By: #### 2 45221 #### [facility],[address] [place] [address] EO # 0.06 x10EE3/UL Normal 0.00 - 0.50 [facility] Comment on above: Performed By: #### 2 46955 #### [facility],[address] [place], [place] [address] Eosinophils/100 WBC (Bld) 0.8 % Normal 0.0 - 7.0 [facility] Comment on above: Performed By: #### 2 48105 #### [facility],[address] [place] [address] Erythrocyte distribution width (RBC) [Ratio] 13.1 % Normal 12.0 - 15.6 [facility] Comment on above: Performed By: #### 2 27667 #### [facility],[address] [place] [address] Hematocrit (Bld) [Volume fraction] 43.0 % Normal 40.0 - 52.0 [facility] Comment on above: Performed By: #### 2 71932 #### [facility],[address] [place] [address] 31380 Hemoglobin (Bld) [Mass/Vol] 14.5 g/dL Normal 13.0 - 17.5 [facility] Comment on above: Performed By: #### 2 48917 #### [facility],[address] [place] [address] 34013 Lymph # 0.74 x10EE3/UL Low 0.80 - 2.80 [facility] Comment on above: Performed By: #### 2 65441 #### [facility],[address] [place] [address] 68918 Lymphocytes/100 WBC (Bld) 9.2 % Low 20.0 - 45.0 [facility] Comment on above: Performed By: #### 2 69081 #### [facility],[address] [place] [address] 55602 MANUAL DIFF N/A Normal [facility] Comment on above: Performed By: #### 2 98254 #### [facility],[address] [place] [address] 91020 MCH (RBC) [Entitic mass] 34 pg High 27 - 33 [facility] Comment on above: Performed By: #### 2 53461 #### [facility],[address] [place] [address] 15021 MCHC 34 X10 3 Normal 32 - 36 [facility] Comment on above: Performed By: #### 2 77155 #### [facility],[address] [place] [address] 06034 MCV (RBC) [Entitic vol] 100 fL High 81 - 98 [facility] Comment on above: Performed By: #### 2 79736 #### [facility],[address] [place] [address] 86819 Rhea # 0.68 x10EE3/UL Normal 0.20 - 1.00 [facility] Comment on above: Performed By: #### 2 05795 #### [facility],[address] [place] [address] 36124 MONOS % 8.4 % Normal 0.0 - 10.0 [facility] Comment on above: Performed By: #### 2 78868 #### [facility],[address] [place] [address] 08588 Morphology Yao (Bld) [Interp] N/A Normal [facility] Comment on above: Performed By: #### 2 11632 #### [facility],[address] [place] [address] 60994 Neut # 6.57 x10EE3/UL Normal 1.50 - 7.10 [facility] Comment on above: Performed By: #### 2 89743 #### [facility],[address] [place] [address] 85053 Neutrophils/100 WBC (Bld) 81.4 % High 46.0 - 76.0 [facility] Comment on above: Performed By: #### 2 81010 #### [facility],[address] [place] [address] 14782 PLATELET 168 x10EE3/UL Normal 150 - 450 [facility] Comment on above: Performed By: #### 2 88720 #### [facility],[address] [place] [address] 31316 Platelet mean volume (Bld) [Entitic vol] 8.7 fL Normal 6.4 - 10.5 [facility] Comment on above: Result Comment: AUTO MATED DIFFERENTIAL Performed By: #### 2 78141 #### [facility],[address] [place] [address] 78480 RBC 4.29 x 10EE6/UL Low 4.50 - 6.00 [facility] Comment on above: Performed By: #### 2 37993 #### [facility],[address] [place] [address] 53615 WBC 8.1 x 10EE3/UL Normal 4.5 - 10.8 [facility] Comment on above: Performed By: #### 2 81378 #### [facility],[address] [place] [address] 49414 CMP with eGFRon 07-01-2025 AGE 84 years Normal [facility] Comment on above: Performed By: #### 2 54699 ####[facility],[address] [place] [address] 68798 Albumin [Mass/Vol] 3.3 g/dL Low 3.4 - 5.0 [facility] Comment on above: Performed By: #### 2 17427 ####[facility],[address] [place] [address] 00980 Albumin/Globulin [Mass ratio] 1.1 {ratio} Normal 0.9 - 1.6 [facility] Comment on above: Performed By: #### 2 02015 ####[facility],[address] [place] [address] 39252 ALK PHOS 119 U/L High 46 - 116 [facility] Comment on above: Performed By: #### 2 87473 ####[facility],[address] [place] [address] 59660 ALT [Catalytic activity/Vol] 26 U/L Normal 16 - 63 [facility] Comment on above: Performed By: #### 2 26797 ####[facility],[address] [place] [address] 28657 Anion gap [Moles/Vol] 9 mmol/L Low 10 - 20 [facility] Comment on above: Performed By: #### 2 68813 ####[facility],[address] [place] [address] 38487 AST [Catalytic activity/Vol] 20 U/L Normal 15 - 37 [facility] Comment on above: Performed By: #### 2 62504 ####[facility],[address] [place] [address] 29332 B/C RATIO 24 ratio Normal 0 - 30 [facility] Comment on above: Performed By: #### 2 18852 ####[facility],[address] [place] [address] 46308 Bilirubin [Mass/Vol] 0.8 mg/dL Normal 0.2 - 1.0 [facility] Comment on above: Performed By: #### 2 64876 ####[facility],[address] [place] [address] 15678 Calcium [Mass/Vol] 9.1 mg/dL Normal 8.5 - 10.1 [facility] Comment on above: Performed By: #### 2 59699 ####[facility],[address] [place] [address] 92670 Chloride [Moles/Vol] 106 mmol/L Normal 98 - 107 [facility] Comment on above: Performed By: #### 2 96795 ####[facility],[address] [place], [place] [address] CMP with eGFR Normal [facility] Comment on above: Result Comment: COMP REHENSIVE METABOLIC PANEL Performed By: #### 2 53510 ####[facility],[address] [place] [address] 16863 CO2 [Moles/Vol] 29.2 mmol/L Normal 21.0 - 32.0 [facility] Comment on above: Performed By: #### 2 85936 ####[facility],[address] [place] [address] 47914 Creatinine [Mass/Vol] 0.87 mg/dL Normal 0.70 - 1.30 [facility] Comment on above: Performed By: #### 2 62513 ####[facility],[address] [place] [address] 30228 GFR/1.73 sq M.predicted among non-blacks MDRD (S/P/Bld) [Vol rate/Area] mL/min/{1.73_m2} Normal 60 - 999 [facility] Comment on above: Performed By: #### 2 30847 ####[facility],[address] [place] [address] Result Comment: ACCO RDING TO THE NATIONAL KIDNEY DISEASE EDUCATION PROGRAM(NKDE), A NORMAL eGFR IS A VALUE GREATER THAN OR EQUAL TO 60 ML/MIN/1.73 SQ METERS. CHRONIC KIDNEY DISEASE: <60mL/MIN/1.73 SQ METERS KIDNEY FAILURE: <15mL/MIN/1.73 SQ METERS THIS TEST SHOULD ONLY BE USED FOR PATIENTS 18 YEARS OF AGE AND OLDER. Globulin (S) [Mass/Vol] 3.1 g/dL Normal 1.5 - 3.8 [facility] Comment on above: Performed By: #### 2 19535 ####[place] [address] Glucose [Mass/Vol] 92 mg/dL Normal 74 - 106 [facility] Comment on above: Performed By: #### 2 91982 ####[facility],[address] [place] [address] Potassium [Moles/Vol] 4.6 mmol/L Normal 3.5 - 5.1 [facility] Comment on above: Performed By: #### 2 13331 ####[facility],[address] [place], [place] [address] Protein [Mass/Vol] 6.4 g/dL Normal 6.4 - 8.2 [facility] Comment on above: Performed By: #### 2 95613 ####[facility],[address] [place] [address] 37096 Sodium [Moles/Vol] 140 mmol/L Normal 136 - 145 [facility] Comment on above: Performed By: #### 2 13521 ####[address] [address] Urea nitrogen [Mass/Vol] 21 mg/dL High 7 - 18 [facility] Comment on above: Performed By: #### 2 76585 ####[facility],[address] [place] [address] 82398 LIPID PROFILEon 07-01-2025 Cholesterol [Mass/Vol] 104 mg/dL Normal 0 - 240 [facility] Comment on above: Performed By: #### 2 17833 ####[facility],[address] [place] [address] 88089 Cholesterol in HDL [Mass/Vol] 60 mg/dL Normal 40 - 60 [facility] Comment on above: Performed By: #### 2 40501 ####[facility],[address] [place] [address] 89275 Cholesterol in LDL [Mass/Vol] 40 mg/dL Normal 0 - 129 [facility] Comment on above: Performed By: #### 2 74615 ####[facility],[address] [place] [address] 07544 Cholesterol.total/Beatrice sterol in HDL [Mass ratio] 1.7 {ratio} Normal 0.0 - 5.0 [facility] Comment on above: Performed By: #### 2 72788 ####[facility],[address] [place] [address] 71157 Lipid 1996 panel Normal [facility] Comment on above: Result Comment: LIPI D PROFILE Performed By: #### 2 03709 ####[facility],[address] [place] [address] 93007 Triglyceride [Mass/Vol] 22 mg/dL Normal 0 - 150 [facility] Comment on above: Performed By: #### 2 77242 ####[facility],[address] [place] [address] 12224 MR/BMS.Ancelmo 06-09-2025 MR/BMS.[facility] Surgery [address] [place] [address]. [address] [place] [address] OFFICE VISIT Date of Service: 06/09/25 MR#: [id number] Acct: [id number] Name: SABIHA WEBBER Rep #: [id number] : 1940 Provider: Dr. Blake Gonzalez MD Age/Sex: 84/M Location: [facility].BV[facility] Status: Signed Intake Vital Signs [...] nose nor (more content not included)... Normal [facility] Carotid Duplex Ultrasoundon 04-26-2025 Carotid Duplex Ultrasound [facility] [place] [address] [place] [address] Carotid Duplex Ultrasound 04/26/25 1255 MR#: [id number] Acct: [id number] Name: SABIHA WEBBER Rep #: [id number] : 1940 84 From: Blake Gonzalez MD [...] the left vertebral artery. Procedure Carotid Duplex 36153. This is a Carotid Duplex examination using [...] Dictated: 04/26/25 1255 Date Transcribed: 04/26/25 1608 Fire [employer] Operator: Signed Normal [facility] Duplex ultrasound of carotid artery reportOrdered By: Blake Gonzalez on 04-26-2025 Study report [facility] [address] [place] [address] Carotid Duplex Ultrasound 04/26/25 1255 MR#: [id number] Acct: [id number] Name: SABIHA WEBBER Rep #:[id number] : 1940 84 From: Blake Lynn Attending Dr: TATY Maciel Stat us: REG CLI Ordering Dr: Reanna Diaz Date: Location: [facility] Sex: M C Admitted: Reason For Study [...] the left vertebral artery. Procedure Carotid Duplex 29559. This is a Carotid Duplex examination using [...] Date Dictated: 04/26/25 125 Date Transcribed: 04/26/251607 [employer] Operator: Signed [facility] Work Phone: CBC + DIFFon 04-08-2025 Baso # 0.02 x10EE3/UL Normal 0.00 - 0.10 [facility] Comment on above: Performed By: #### 2 34569 #### [address] [address] Basophils/100 WBC (Bld) 0.3 % Normal 0.0 - 2.0 [facility] Comment on above: Performed By: #### 2 62796 #### [facility],[address] [place] [address] 72376 CBC + DIFF Normal [facility] Comment on above: Result Comment: CBC- COMPLETE BLOOD COUNT Performed By: #### 2 54083 #### [facility],[address] [place] [address] 71742 EO # 0.07 x10EE3/UL Normal 0.00 - 0.50 [facility] Comment on above: Performed By: #### 2 81284 #### [facility],[address] [place] [address] 69885 Eosinophils/100 WBC (Bld) 1.2 % Normal 0.0 - 7.0 [facility] Comment on above: Performed By: #### 2 83045 #### [facility],[address] [place] [address] Erythrocyte distribution width (RBC) [Ratio] 13.5 % Normal 12.0 - 15.6 [facility] Comment on above: Performed By: #### 2 32415 #### [facility],[address] [place] [address] Hematocrit (Bld) [Volume fraction] 41.4 % Normal 40.0 - 52.0 [facility] Comment on above: Performed By: #### 2 09581 #### [facility],[address] [place] [address] Hemoglobin (Bld) [Mass/Vol] 14.4 g/dL Normal 13.0 - 17.5 [facility] Comment on above: Performed By: #### 2 94794 #### [facility],[address] [place] [address] Lymph # 1.04 x10EE3/UL Normal 0.80 - 2.80 [facility] Comment on above: Performed By: #### 2 92057 #### [facility],[address] [place], [place] [address] Lymphocytes/100 WBC (Bld) 16.9 % Low 20.0 - 45.0 [facility] Comment on above: Performed By: #### 2 47498 #### [facility],[address] [place], [place] [address] MANUAL DIFF N/A Normal [facility] Comment on above: Performed By: #### 2 91155 #### [place] [id number] MCH (RBC) [Entitic mass] 35 pg High 27 - 33 [facility] Comment on above: Performed By: #### 2 91749 #### [place] [address] MCHC 35 X10 3 Normal 32 - 36 [facility] Comment on above: Performed By: #### 2 20962 #### [facility],[address] [place] [address] 11177 MCV (RBC) [Entitic vol] 100 fL High 81 - 98 [facility] Comment on above: Performed By: #### 2 60043 #### [facility],[address] [place] [address] 21136 Rhea # 0.66 x10EE3/UL Normal 0.20 - 1.00 [facility] Comment on above: Performed By: #### 2 67496 #### [facility],[address] [place] [address] 43236 MONOS % 10.8 % High 0.0 - 10.0 [facility] Comment on above: Performed By: #### 2 61831 #### [facility],[address] [place], [place] [address] Morphology Yao (Bld) [Interp] N/A Normal [facility] Comment on above: Performed By: #### 2 25985 #### [facility],[address] [place] [address] 28500 Neut # 4.36 x10EE3/UL Normal 1.50 - 7.10 [facility] Comment on above: Performed By: #### 2 18609 #### [facility],[address] [place] [address] 92368 Neutrophils/100 WBC (Bld) 70.8 % Normal 46.0 - 76.0 [facility] Comment on above: Performed By: #### 2 38632 #### [facility],[address] [place] [address] 24133 PLATELET 186 x10EE3/UL Normal 150 - 450 [facility] Comment on above: Performed By: #### 2 60453 #### [facility],[address] [place] [address] 69437 Platelet mean volume (Bld) [Entitic vol] 9.1 fL Normal 6.4 - 10.5 [facility] Comment on above: Result Comment: AUTO MATED DIFFERENTIAL Performed By: #### 2 51624 #### [facility],[address] [place] [address] 94123 RBC 4.14 x 10EE6/UL Low 4.50 - 6.00 [facility] Comment on above: Performed By: #### 2 62529 #### [facility],[address] [place] [address] 31165 WBC 6.2 x 10EE3/UL Normal 4.5 - 10.8 [facility] Comment on above: Performed By: #### 2 83686 #### [facility],[address] [place] [address] 64774 CMP with eGFRon 04-08-2025 AGE 84 years Normal [facility] Comment on above: Performed By: #### 2 85398 ####[facility],[address] [place] [address] 69251 Albumin [Mass/Vol] 3.5 g/dL Normal 3.4 - 5.0 [facility] Comment on above: Performed By: #### 2 70169 ####[facility],[address] [place] [address] 14394 Albumin/Globulin [Mass ratio] 1.0 {ratio} Normal 0.9 - 1.6 [facility] Comment on above: Performed By: #### 2 83016 ####[facility],[address] [place] [address] 06752 ALK PHOS 118 U/L High 46 - 116 [facility] Comment on above: Performed By: #### 2 67693 ####[facility],[address] [place] [address] 41804 ALT [Catalytic activity/Vol] 42 U/L Normal 16 - 63 [facility] Comment on above: Performed By: #### 2 29458 ####[facility],[address] [place] [address] 39833 Anion gap [Moles/Vol] 11 mmol/L Normal 10 - 20 [facility] Comment on above: Performed By: #### 2 07962 ####[facility],[address] [place] [address] 50793 AST [Catalytic activity/Vol] 25 U/L Normal 15 - 37 [facility] Comment on above: Performed By: #### 2 79863 ####[facility],[address] [place] [address] 66113 B/C RATIO 30 ratio Normal 0 - 30 [facility] Comment on above: Performed By: #### 2 06984 ####[facility],[address] [place] [address] 04743 Bilirubin [Mass/Vol] 0.7 mg/dL Normal 0.2 - 1.0 [facility] Comment on above: Performed By: #### 2 50720 ####[facility],[address] [place] [address] 22491 Calcium [Mass/Vol] 9.1 mg/dL Normal 8.5 - 10.1 [facility] Comment on above: Performed By: #### 2 94093 ####[facility],[address] [place] [address] 96976 Chloride [Moles/Vol] 108 mmol/L High 98 - 107 [facility] Comment on above: Performed By: #### 2 88196 ####[facility],[address] [place] [address] 15182 CMP with eGFR Normal [facility] Comment on above: Result Comment: COMP REHENSIVE METABOLIC PANEL Performed By: #### 2 99056 ####[facility],[address] [place] [address] 16927 CO2 [Moles/Vol] 27.3 mmol/L Normal 21.0 - 32.0 [facility] Comment on above: Performed By: #### 2 96975 ####[facility],[address] [place] [address] 75433 Creatinine [Mass/Vol] 1.23 mg/dL Normal 0.70 - 1.30 [facility] Comment on above: Performed By: #### 2 87846 ####[facility],[address] [place] [address] 82567 eGFR 56 ML/MINUTE Low 60 - 999 [facility] Comment on above: Performed By: #### 2 68734 ####[facility],[address] [place] [address] 29092 GFR/1.73 sq M.predicted among non-blacks MDRD (S/P/Bld) [Vol rate/Area] mL/min/{1.73_m2} Normal 60 - 999 [facility] Comment on above: Result Comment: ACCO RDING TO THE NATIONAL KIDNEY DISEASE EDUCATION PROGRAM(NKDE), A NORMAL eGFR IS A VALUE GREATER THAN OR EQUAL TO 60 ML/MIN/1.73 SQ METERS. CHRONIC KIDNEY DISEASE: <60mL/MIN/1.73 SQ METERS KIDNEY FAILURE: <15mL/MIN/1.73 SQ METERS THIS TEST SHOULD ONLY BE USED FOR PATIENTS 18 YEARS OF AGE AND OLDER. Performed By: #### 2 03280 ####[facility],[address] [place] [address] 35103 Globulin (S) [Mass/Vol] 3.6 g/dL Normal 1.5 - 3.8 [facility] Comment on above: Performed By: #### 2 70314 ####[facility],[address] [place] [address] 25483 Glucose [Mass/Vol] 90 mg/dL Normal 74 - 106 [facility] Comment on above: Performed By: #### 2 18643 ####[facility],[address] [place] [address] 73399 Potassium [Moles/Vol] 4.6 mmol/L Normal 3.5 - 5.1 [facility] Comment on above: Performed By: #### 2 44692 ####[facility],[address] [place] [address] 14992 Protein [Mass/Vol] 7.1 g/dL Normal 6.4 - 8.2 [facility] Comment on above: Performed By: #### 2 86229 ####[facility],[address] [place] [address] 33931 Sodium [Moles/Vol] 142 mmol/L Normal 136 - 145 [facility] Comment on above: Performed By: #### 2 90293 ####[facility],[address] [place] [address] 36863 Urea nitrogen [Mass/Vol] 37 mg/dL High 7 - 18 [facility] Comment on above: Performed By: #### 2 66387 ####[facility],[address] [place] [address] 79922 CBC + DIFFon 01-13-2025 Baso # 0.01 x10EE3/UL Normal 0.00 - 0.10 [facility] Comment on above: Performed By: #### 2 21455 ####[facility],[address] [place] [address] 83792 Basophils/100 WBC (Bld) 0.1 % Normal 0.0 - 2.0 [facility] Comment on above: Performed By: #### 2 46592 ####[facility],[address] [place] [address] 67254 CBC + DIFF Normal [facility] Comment on above: Result Comment: CBC- COMPLETE BLOOD COUNT Performed By: #### 2 73677 ####[facility],[address] [place] [address] 86728 EO # 0.03 x10EE3/UL Normal 0.00 - 0.50 [facility] Comment on above: Performed By: #### 2 92236 ####[facility],[address] [place] [address] 68547 Eosinophils/100 WBC (Bld) 0.5 % Normal 0.0 - 7.0 [facility] Comment on above: Performed By: #### 2 33003 ####[facility],[address] [place] [address] Erythrocyte distribution width (RBC) [Ratio] 13.1 % Normal 12.0 - 15.6 [facility] Comment on above: Performed By: #### 2 73451 ####[facility],[address] [place] [address] Hematocrit (Bld) [Volume fraction] 43.0 % Normal 40.0 - 52.0 [facility] Comment on above: Performed By: #### 2 70516 ####[facility],[address] [place] [address] Hemoglobin (Bld) [Mass/Vol] 14.5 g/dL Normal 13.0 - 17.5 [facility] Comment on above: Performed By: #### 2 93539 ####[place] [address] Lymph # 0.87 x10EE3/UL Normal 0.80 - 2.80 [facility] Comment on above: Performed By: #### 2 31487 ####[place] [address] Lymphocytes/100 WBC (Bld) 15.4 % Low 20.0 - 45.0 [facility] Comment on above: Performed By: #### 2 88706 ####[place] [id number] MANUAL DIFF N/A Normal [facility] Comment on above: Performed By: #### 2 87228 ####[place] [id number] MCH (RBC) [Entitic mass] 35 pg High 27 - 33 [facility] Comment on above: Performed By: #### 2 53634 ####[place] [address]7924 MCHC 34 X10 3 Normal 32 - 36 [facility] Comment on above: Performed By: #### 2 89083 ####[facility],[address] [place] [address] 18055 MCV (RBC) [Entitic vol] 103 fL High 81 - 98 [facility] Comment on above: Performed By: #### 2 98259 ####[facility],[address] [place] [address] 80405 Rhea # 0.36 x10EE3/UL Normal 0.20 - 1.00 [facility] Comment on above: Performed By: #### 2 64987 ####[facility],[address] [place] [address] 80309 MONOS % 6.3 % Normal 0.0 - 10.0 [facility] Comment on above: Performed By: #### 2 53709 ####[facility],[address] [place], [place] [address] Morphology Yao (Bld) [Interp] N/A Normal [facility] Comment on above: Performed By: #### 2 03922 ####[facility],[address] [place], [place] [address] Neut # 4.41 x10EE3/UL Normal 1.50 - 7.10 [facility] Comment on above: Performed By: #### 2 17156 ####[facility],[address] [place] [address] 38513 Neutrophils/100 WBC (Bld) 77.7 % High 46.0 - 76.0 [facility] Comment on above: Performed By: #### 2 31836 ####[facility],[address] [place] [address] 88991 PLATELET 214 x10EE3/UL Normal 150 - 450 [facility] Comment on above: Performed By: #### 2 70190 ####[facility],[address] [place] [address] 20577 Platelet mean volume (Bld) [Entitic vol] 9.1 fL Normal 6.4 - 10.5 [facility] Comment on above: Result Comment: AUTO MATED DIFFERENTIAL Performed By: #### 2 00220 ####[facility],[address] [place] [address] 08237 RBC 4.19 x 10EE6/UL Low 4.50 - 6.00 [facility] Comment on above: Performed By: #### 2 29906 ####[facility],[address] [place] [address] 19221 WBC 5.7 x 10EE3/UL Normal 4.5 - 10.8 [facility] Comment on above: Performed By: #### 2 36829 ####[facility],[address] [place] [address] 53035 CMP with eGFRon 01-13-2025 AGE 84 years Normal [facility] Comment on above: Performed By: #### 2 12733 ####[facility],[address] [place] [address] 50210 Albumin [Mass/Vol] 3.6 g/dL Normal 3.4 - 5.0 [facility] Comment on above: Performed By: #### 2 98994 ####[facility],[address] [place] [address] 05175 Albumin/Globulin [Mass ratio] 1.0 {ratio} Normal 0.9 - 1.6 [facility] Comment on above: Performed By: #### 2 42976 ####[facility],[address] [place] [address] 97737 ALK PHOS 112 U/L Normal 46 - 116 [facility] Comment on above: Performed By: #### 2 28287 ####[facility],[address] [place] [address] 99422 ALT [Catalytic activity/Vol] 30 U/L Normal 16 - 63 [facility] Comment on above: Performed By: #### 2 14889 ####[facility],[address] [place] [address] 02882 Anion gap [Moles/Vol] 13 mmol/L Normal 10 - 20 [facility] Comment on above: Performed By: #### 2 49267 ####[facility],[address] [place] [address] 08570 AST [Catalytic activity/Vol] 22 U/L Normal 15 - 37 [facility] Comment on above: Performed By: #### 2 88898 ####[facility],[address] [place] [address] 98029 B/C RATIO 26 ratio Normal 0 - 30 [facility] Comment on above: Performed By: #### 2 25031 ####[facility],[address] [place] [address] 21984 Bilirubin [Mass/Vol] 0.7 mg/dL Normal 0.2 - 1.0 [facility] Comment on above: Performed By: #### 2 13538 ####[facility],[address] [place], [place] [address] Calcium [Mass/Vol] 9.6 mg/dL Normal 8.5 - 10.1 [facility] Comment on above: Performed By: #### 2 30400 ####[facility],[address] [place] [address] 40693 Chloride [Moles/Vol] 107 mmol/L Normal 98 - 107 [facility] Comment on above: Performed By: #### 2 40099 ####[facility],[address] [place] [address] 50947 CMP with eGFR Normal [facility] Comment on above: Result Comment: COMP REHENSIVE METABOLIC PANEL Performed By: #### 2 60150 ####[facility],[address] [place] [address] 67248 CO2 [Moles/Vol] 27.8 mmol/L Normal 21.0 - 32.0 [facility] Comment on above: Performed By: #### 2 46943 ####[facility],[address] [place] [address] 69373 Creatinine [Mass/Vol] 1.09 mg/dL Normal 0.70 - 1.30 [facility] Comment on above: Performed By: #### 2 44380 ####[facility],[address] [place] [address] 25447 GFR/1.73 sq M.predicted among non-blacks MDRD (S/P/Bld) [Vol rate/Area] mL/min/{1.73_m2} Normal 60 - 999 [facility] Comment on above: Performed By: #### 2 74343 ####[facility],[address] [place] [address] Result Comment: ACCO RDING TO THE NATIONAL KIDNEY DISEASE EDUCATION PROGRAM(NKDE), A NORMAL eGFR IS A VALUE GREATER THAN OR EQUAL TO 60 ML/MIN/1.73 SQ METERS. CHRONIC KIDNEY DISEASE: <60mL/MIN/1.73 SQ METERS KIDNEY FAILURE: <15mL/MIN/1.73 SQ METERS THIS TEST SHOULD ONLY BE USED FOR PATIENTS 18 YEARS OF AGE AND OLDER. Globulin (S) [Mass/Vol] 3.5 g/dL Normal 1.5 - 3.8 [facility] Comment on above: Performed By: #### 2 06973 ####[facility],[address] [place] [address] 34184 Glucose [Mass/Vol] 151 mg/dL High 74 - 106 [facility] Comment on above: Performed By: #### 2 52548 ####[facility],[address] [place] [address] 18147 Potassium [Moles/Vol] 4.3 mmol/L Normal 3.5 - 5.1 [facility] Comment on above: Performed By: #### 2 64701 ####[facility],[address] [place] [address] 87377 Protein [Mass/Vol] 7.1 g/dL Normal 6.4 - 8.2 [facility] Comment on above: Performed By: #### 2 32943 ####[facility],[address] [place] [address] 63609 Sodium [Moles/Vol] 143 mmol/L Normal 136 - 145 [facility] Comment on above: Performed By: #### 2 37525 ####[facility],[address] [place] [address] 65821 Urea nitrogen [Mass/Vol] 28 mg/dL High 7 - 18 [facility] Comment on above: Performed By: #### 2 75911 ####[facility],[address] [place] [address] 20646 T4, FREE [CCL]on 12-18-2024 Free T4 [Mass/Vol] 1.2 ng/dL Normal 0.9-1.7 [facility] Comment on above: Result Comment: [place] [address] Wojciech Fuentes III, M.D. [id number] Performed By: #### 2 08019 #### [facility],[address] [place] [address] 31471 CBC + DIFFon 12-17-2024 Baso # 0.02 x10EE3/UL Normal 0.00 - 0.10 [facility] Comment on above: Performed By: #### 2 90650 #### [facility],[address] [place] [address] 50603 Basophils/100 WBC (Bld) 0.3 % Normal 0.0 - 2.0 [facility] Comment on above: Performed By: #### 2 44671 #### [facility],[address] [place] [address] 33725 CBC + DIFF Normal [facility] Comment on above: Result Comment: CBC- COMPLETE BLOOD COUNT Performed By: #### 2 11799 #### [facility],[address] [place] [address] 91232 EO # 0.02 x10EE3/UL Normal 0.00 - 0.50 [facility] Comment on above: Performed By: #### 2 24260 #### [place] [address] Eosinophils/100 WBC (Bld) 0.3 % Normal 0.0 - 7.0 [facility] Comment on above: Performed By: #### 2 93911 #### [facility],[address] [place] [address] Erythrocyte distribution width (RBC) [Ratio] 12.7 % Normal 12.0 - 15.6 [facility] Comment on above: Performed By: #### 2 34427 #### [place] [address] Hematocrit (Bld) [Volume fraction] 42.0 % Normal 40.0 - 52.0 [facility] Comment on above: Performed By: #### 2 20001 #### [place] [address] Hemoglobin (Bld) [Mass/Vol] 13.9 g/dL Normal 13.0 - 17.5 [facility] Comment on above: Performed By: #### 2 87676 #### [facility],[address] [place] [address] Lymph # 0.98 x10EE3/UL Normal 0.80 - 2.80 [facility] Comment on above: Performed By: #### 2 22404 #### [place] [id number] Lymphocytes/100 WBC (Bld) 16.9 % Low 20.0 - 45.0 [facility] Comment on above: Performed By: #### 2 66665 #### [place] [address] MANUAL DIFF N/A Normal [facility] Comment on above: Performed By: #### 2 69414 #### [place] [address] MCH (RBC) [Entitic mass] 34 pg High 27 - 33 [facility] Comment on above: Performed By: #### 2 26289 #### [address] [address] MCHC 33 X10 3 Normal 32 - 36 [facility] Comment on above: Performed By: #### 2 72667 #### [facility],[address] [place] [address] 77772 MCV (RBC) [Entitic vol] 102 fL High 81 - 98 [facility] Comment on above: Performed By: #### 2 45238 #### [facility],[address] [place] [address] 53028 Rhea # 0.65 x10EE3/UL Normal 0.20 - 1.00 [facility] Comment on above: Performed By: #### 2 70142 #### [facility],[address] [place] [address] 27674 MONOS % 11.3 % High 0.0 - 10.0 [facility] Comment on above: Performed By: #### 2 49196 #### [facility],[address] [place] [address] 31835 Morphology Yao (Bld) [Interp] N/A Normal [facility] Comment on above: Performed By: #### 2 25108 #### [facility],[address] [place] [address] 72587 Neut # 4.10 x10EE3/UL Normal 1.50 - 7.10 [facility] Comment on above: Performed By: #### 2 40258 #### [address] [address]49 Neutrophils/100 WBC (Bld) 71.1 % Normal 46.0 - 76.0 [facility] Comment on above: Performed By: #### 2 39742 #### [place] [id number] PLATELET 190 x10EE3/UL Normal 150 - 450 [facility] Comment on above: Performed By: #### 2 24904 #### [facility],[address] [place] [address] 36645 Platelet mean volume (Bld) [Entitic vol] 8.7 fL Normal 6.4 - 10.5 [facility] Comment on above: Result Comment: AUTO MATED DIFFERENTIAL Performed By: #### 2 09639 #### [facility],[address] [place] [address] RBC 4.12 x 10EE6/UL Low 4.50 - 6.00 [facility] Comment on above: Performed By: #### 2 94591 #### [facility],[address] [place] [address] 49421 WBC 5.8 x 10EE3/UL Normal 4.5 - 10.8 [facility] Comment on above: Performed By: #### 2 44211 #### [facility],[address] [place] [address] 34491 CMP with eGFRon 12-17-2024 AGE 84 years Normal [facility] Comment on above: Performed By: #### 2 39238 ####[facility],[address] [place] [address] 77768 Albumin [Mass/Vol] 3.5 g/dL Normal 3.4 - 5.0 [facility] Comment on above: Performed By: #### 2 60538 ####[facility],[address] [place] [address] 03009 Albumin/Globulin [Mass ratio] 1.0 {ratio} Normal 0.9 - 1.6 [facility] Comment on above: Performed By: #### 2 30518 ####[facility],[address] [place] [address] 62613 ALK PHOS 117 U/L High 46 - 116 [facility] Comment on above: Performed By: #### 2 82677 ####[facility],[address] [place] [address] 66873 ALT [Catalytic activity/Vol] 28 U/L Normal 16 - 63 [facility] Comment on above: Performed By: #### 2 00390 ####[facility],[address] [place] [address] 51010 Anion gap [Moles/Vol] 11 mmol/L Normal 10 - 20 [facility] Comment on above: Performed By: #### 2 07175 ####[facility],[address] [place] [address] 01168 AST [Catalytic activity/Vol] 17 U/L Normal 15 - 37 [facility] Comment on above: Performed By: #### 2 23681 ####[facility],[address] [place] [address] 56327 B/C RATIO 22 ratio Normal 0 - 30 [facility] Comment on above: Performed By: #### 2 25715 ####[facility],[address] [place] [address] 21333 Bilirubin [Mass/Vol] 0.7 mg/dL Normal 0.2 - 1.0 [facility] Comment on above: Performed By: #### 2 24103 ####[facility],[address] [place] [address] 61760 Calcium [Mass/Vol] 9.0 mg/dL Normal 8.5 - 10.1 [facility] Comment on above: Performed By: #### 2 78069 ####[facility],[address] [place] [address] 22975 Chloride [Moles/Vol] 106 mmol/L Normal 98 - 107 [facility] Comment on above: Performed By: #### 2 39953 ####[facility],[address] [place] [address] 64813 CMP with eGFR Normal [facility] Comment on above: Result Comment: COMP REHENSIVE METABOLIC PANEL Performed By: #### 2 72521 ####[facility],[address] [place] [address] 44155 CO2 [Moles/Vol] 28.8 mmol/L Normal 21.0 - 32.0 [facility] Comment on above: Performed By: #### 2 11534 ####[facility],[address] [place] [address] 10359 Creatinine [Mass/Vol] 1.05 mg/dL Normal 0.70 - 1.30 [facility] Comment on above: Performed By: #### 2 24888 ####[facility],[address] [place] [address] 21203 GFR/1.73 sq M.predicted among non-blacks MDRD (S/P/Bld) [Vol rate/Area] mL/min/{1.73_m2} Normal 60 - 999 [facility] Comment on above: Performed By: #### 2 99766 ####[facility],[address] [place] [address] Result Comment: ACCO RDING TO THE NATIONAL KIDNEY DISEASE EDUCATION PROGRAM(NKDE), A NORMAL eGFR IS A VALUE GREATER THAN OR EQUAL TO 60 ML/MIN/1.73 SQ METERS. CHRONIC KIDNEY DISEASE: <60mL/MIN/1.73 SQ METERS KIDNEY FAILURE: <15mL/MIN/1.73 SQ METERS THIS TEST SHOULD ONLY BE USED FOR PATIENTS 18 YEARS OF AGE AND OLDER. Globulin (S) [Mass/Vol] 3.4 g/dL Normal 1.5 - 3.8 [facility] Comment on above: Performed By: #### 2 49034 ####[facility],[address] [place] [address] 03075 Glucose [Mass/Vol] 93 mg/dL Normal 74 - 106 [facility] Comment on above: Performed By: #### 2 20023 ####[facility],[address] [place] [address] 18724 Potassium [Moles/Vol] 4.3 mmol/L Normal 3.5 - 5.1 [facility] Comment on above: Performed By: #### 2 97463 ####[facility],[address] [place] [address] 78840 Protein [Mass/Vol] 6.9 g/dL Normal 6.4 - 8.2 [facility] Comment on above: Performed By: #### 2 77264 ####[facility],[address] [place] [address] 08056 Sodium [Moles/Vol] 141 mmol/L Normal 136 - 145 [facility] Comment on above: Performed By: #### 2 99873 ####[facility],[address] [place] [address] 40253 Urea nitrogen [Mass/Vol] 23 mg/dL High 7 - 18 [facility] Comment on above: Performed By: #### 2 20855 ####[facility],[address] [place] [address] 73767 LIPID PROFILEon 12-17-2024 Cholesterol [Mass/Vol] 158 mg/dL Normal 0 - 240 [facility] Comment on above: Performed By: #### 2 24071 #### [facility],[address] [place] [address] 80011 Cholesterol in HDL [Mass/Vol] 72 mg/dL High 40 - 60 [facility] Comment on above: Performed By: #### 2 53149 #### [facility],[address] [place] [address] 77908 Cholesterol in LDL [Mass/Vol] 81 mg/dL Normal 0 - 129 [facility] Comment on above: Performed By: #### 2 21864 #### [facility],[address] [place] [address] 54576 Cholesterol.total/Beatrice sterol in HDL [Mass ratio] 2.2 {ratio} Normal 0.0 - 5.0 [facility] Comment on above: Performed By: #### 2 96187 #### [facility],[address] [place] [address] 23432 Lipid 1996 panel Normal [facility] Comment on above: Result Comment: LIPI D PROFILE Performed By: #### 2 45875 #### [facility],[address] [place] [address] 56765 Triglyceride [Mass/Vol] 27 mg/dL Normal 0 - 150 [facility] Comment on above: Performed By: #### 2 54134 #### [facility],[address] [place] [address] 81656 T4 Free SerPl-mCncon 025 Free T4 [Mass/Vol] 1.2 ng/dL Normal 0.9-1.7 [facility] Comment on above: Order Comment: Speci men Type: BLOOD SPECIMEN Ordering Facility: [facility] Address: [address] [place] [address] Performed By: #### 3 024-7 #### [facility] CLIA [id number] [address] [place] [address] [place] TSHon 12-17-2024 TSH Qn 3.05 m[IU]/L Normal 0.35 - 3.74 [facility] Comment on above: Performed By: #### 2 75104 #### [facility],[address] [place] [address] 98602 Carotid Duplex Ultrasoundon 10-28-2024 Carotid Duplex Ultrasound [facility] [address] [place] [address] Carotid Duplex Ultrasound 10/28/24 1300 MR#: [id number] Acct: [id number] Name: SABIHA WEBBER Rep #: [id number] : 1940 83 From: Blake Gonzalez MD [...] in left vertebral artery. Procedure Carotid Duplex 34088. This is a Carotid Duplex examination using [...] Date Dictated: 10/28/24 1300 Date Transcribed: 10/29/24940 [employer] Operator: Signed Normal [facility] CBC + DIFFon 10-16-2024 Baso # 0.03 x10EE3/UL Normal 0.00 - 0.10 [facility] Comment on above: Performed By: #### 2 69671 ####[facility],[address] [place] [address] 62345 Basophils/100 WBC (Bld) 0.3 % Normal 0.0 - 2.0 [facility] Comment on above: Performed By: #### 2 43258 ####[facility],[address] [place] [address] 33168 CBC + DIFF Normal [facility] Comment on above: Result Comment: CBC- COMPLETE BLOOD COUNT Performed By: #### 2 97923 ####[facility],[address] [place] [address] 48153 EO # 0.06 x10EE3/UL Normal 0.00 - 0.50 [facility] Comment on above: Performed By: #### 2 30583 ####[facility],[address] [place] [address] 22290 Eosinophils/100 WBC (Bld) 0.6 % Normal 0.0 - 7.0 [facility] Comment on above: Performed By: #### 2 73164 ####[facility],[address] [place] [address] 08377 Erythrocyte distribution width (RBC) [Ratio] 13.6 % Normal 12.0 - 15.6 [facility] Comment on above: Performed By: #### 2 42889 ####[facility],[address] [place] [address] 65472 Hematocrit (Bld) [Volume fraction] 42.4 % Normal 40.0 - 52.0 [facility] Comment on above: Performed By: #### 2 71337 ####[facility],[address] [place] [address] 06580 Hemoglobin (Bld) [Mass/Vol] 14.1 g/dL Normal 13.0 - 17.5 [facility] Comment on above: Performed By: #### 2 79246 ####[facility],[address] [place] [address] 25765 Lymph # 0.70 x10EE3/UL Low 0.80 - 2.80 [facility] Comment on above: Performed By: #### 2 53922 ####[facility],[address] [place], [place] [address] Lymphocytes/100 WBC (Bld) 6.7 % Low 20.0 - 45.0 [facility] Comment on above: Performed By: #### 2 07259 ####[facility],[address] [place] [address] 64005 MANUAL DIFF N/A Normal [facility] Comment on above: Performed By: #### 2 89828 ####[facility],[address] [place] [address] 43417 MCH (RBC) [Entitic mass] 34 pg High 27 - 33 [facility] Comment on above: Performed By: #### 2 01466 ####[facility],[address] [place] [address] 75293 MCHC 33 X10 3 Normal 32 - 36 [facility] Comment on above: Performed By: #### 2 77977 ####[facility],[address] [place] [address] 71244 MCV (RBC) [Entitic vol] 104 fL High 81 - 98 [facility] Comment on above: Performed By: #### 2 60600 ####[facility],[address] [place] [address] 08150 Rhea # 1.04 x10EE3/UL High 0.20 - 1.00 [facility] [facility] Comment on above: Performed By: #### 2 01907 ####[facility],[address] [place] [address] 75690 MONOS % 10.1 % High 0.0 - 10.0 [facility] Comment on above: Performed By: #### 2 60231 ####[facility],[address] [place] [address] 62083 Morphology Yao (Bld) [Interp] N/A Normal [facility] Comment on above: Performed By: #### 2 54146 ####[facility],[address] [place] [address] 07543 Neut # 8.55 x10EE3/UL High 1.50 - 7.10 [facility] Comment on above: Performed By: #### 2 39182 ####[facility],[address] [place] [address] 76569 Neutrophils/100 WBC (Bld) 82.4 % High 46.0 - 76.0 [facility] Comment on above: Performed By: #### 2 57258 ####[facility],[address] [place] [address] 71765 PLATELET 194 x10EE3/UL Normal 150 - 450 [facility] Comment on above: Performed By: #### 2 21269 ####[facility],[address] [place] [address] 72815 Platelet mean volume (Bld) [Entitic vol] 9.5 fL Normal 6.4 - 10.5 [facility] Comment on above: Result Comment: AUTO MATED DIFFERENTIAL Performed By: #### 2 61089 ####[facility],[address] [place] [address] 11165 RBC 4.10 x 10EE6/UL Low 4.50 - 6.00 [facility] Comment on above: Performed By: #### 2 21462 ####[facility],[address] [place] [address] 46589 WBC 10.4 x 10EE3/UL Normal 4.5 - 10.8 [facility] Comment on above: Performed By: #### 2 11155 ####[facility],[address] [place] [address] 56718 CMP with eGFRon 10-16-2024 AGE 83 years Normal [facility] Comment on above: Performed By: #### 2 63776 #### [facility],[address] [place] [address] 72074 Albumin [Mass/Vol] 3.3 g/dL Low 3.4 - 5.0 [facility] Comment on above: Performed By: #### 2 89285 #### [facility],[address] [place] [address] 75386 Albumin/Globulin [Mass ratio] 1.0 {ratio} Normal 0.9 - 1.6 [facility] Comment on above: Performed By: #### 2 90665 #### [facility],[address] [place] [address] 88983 ALK PHOS 100 U/L Normal 46 - 116 [facility] Comment on above: Performed By: #### 2 38059 #### [facility],[address] [place] [address] 20795 ALT [Catalytic activity/Vol] 36 U/L Normal 16 - 63 [facility] Comment on above: Performed By: #### 2 25937 #### [facility],[address] [place] [address] 50414 Anion gap [Moles/Vol] 7 mmol/L Low 10 - 20 [facility] Comment on above: Performed By: #### 2 81871 #### [facility],[address] [place] [address] 42560 AST [Catalytic activity/Vol] 21 U/L Normal 15 - 37 [facility] Comment on above: Performed By: #### 2 41772 #### [facility],[address] [place] [address] 50702 B/C RATIO 23 ratio Normal 0 - 30 [facility] Comment on above: Performed By: #### 2 86885 #### [facility],[address] [place] [address] 72807 Bilirubin [Mass/Vol] 0.6 mg/dL Normal 0.2 - 1.0 [facility] Comment on above: Performed By: #### 2 39735 #### [facility],[address] [place] [address] 84602 Calcium [Mass/Vol] 9.0 mg/dL Normal 8.5 - 10.1 [facility] Comment on above: Performed By: #### 2 18952 #### [facility],[address] [place] [address] 88039 Chloride [Moles/Vol] 107 mmol/L Normal 98 - 107 [facility] Comment on above: Performed By: #### 2 89929 #### [facility],[address] [place] [address] 08000 CMP with eGFR Normal [facility] Comment on above: Result Comment: COMP REHENSIVE METABOLIC PANEL Performed By: #### 2 39195 #### [facility],[address] [place] [address] 76753 CO2 [Moles/Vol] 30.8 mmol/L Normal 21.0 - 32.0 [facility] Comment on above: Performed By: #### 2 53278 #### [facility],[address] [place] [address] 00746 Creatinine [Mass/Vol] 1.11 mg/dL Normal 0.70 - 1.30 [facility] Comment on above: Performed By: #### 2 72754 #### [facility],[address] [place] [address] 85960 GFR/1.73 sq M.predicted among non-blacks MDRD (S/P/Bld) [Vol rate/Area] mL/min/{1.73_m2} Normal 60 - 999 [facility] Comment on above: Performed By: #### 2 96911 #### [facility],[address] [place] [address] 11872 Result Comment: ACCO RDING TO THE NATIONAL KIDNEY DISEASE EDUCATION PROGRAM(NKDE), A NORMAL eGFR IS A VALUE GREATER THAN OR EQUAL TO 60 ML/MIN/1.73 SQ METERS. CHRONIC KIDNEY DISEASE: <60mL/MIN/1.73 SQ METERS KIDNEY FAILURE: <15mL/MIN/1.73 SQ METERS THIS TEST SHOULD ONLY BE USED FOR PATIENTS 18 YEARS OF AGE AND OLDER. Globulin (S) [Mass/Vol] 3.3 g/dL Normal 1.5 - 3.8 [facility] Comment on above: Performed By: #### 2 01912 #### [facility],[address] [place] [address] 32695 Glucose [Mass/Vol] 86 mg/dL Normal 74 - 106 [facility] Comment on above: Performed By: #### 2 95846 #### [facility],[address] [place] [address] 98748 Potassium [Moles/Vol] 4.1 mmol/L Normal 3.5 - 5.1 [facility] Comment on above: Performed By: #### 2 00490 #### [facility],[address] [place] [address] 74435 Protein [Mass/Vol] 6.6 g/dL Normal 6.4 - 8.2 [facility] Comment on above: Performed By: #### 2 58308 #### [facility],[address] [place] [address] 42912 Sodium [Moles/Vol] 141 mmol/L Normal 136 - 145 [facility] Comment on above: Performed By: #### 2 38437 #### [facility],[address] [place] [address] 82090 Urea nitrogen [Mass/Vol] 25 mg/dL High 7 - 18 [facility] Comment on above: Performed By: #### 2 38095 #### [facility],[address] [place] [address] 15036 ED MED ADMINISTRATION DETAIL on 09-06-2024 ED MED ADMINISTRATION DETAIL Orthotics Technician Medication Administration Record [address] [address] [id number] 09/06/2024 Patient: SABIHA WEBBER Sex: Male : [...] Edwards R.N. 1 of 1 Normal [facility] ED NURSES CLINICAL NOTEon ED NURSES CLINICAL NOTE Nurse Narrative Nurse Clinical Narrative [address] [address] [id number] 09/06/2024 Patient: SABIHA WEBBER Sex: Male : [...] Melendez R.N. 09/06/24 17:10:38 EST) Generated by [facility] 3 of 3 Normal [facility] ED ORDER SHEET (CPOE ONLY)on 09-06-2024 ED ORDER SHEET (CPOE ONLY) Order Sheet Order Sheet [address] [place] [address] [id number] 09/06/2024 Patient: SABIHA WEBBER Sex: Male : [...] Complete Stat Stat 14:18 09/06/2024 14:19 16:15 Lius Leblanc D.O. 09/06/2024 09/06/2024 Brannon Edwards, Mare.NTracee R.NTracee Reason for Study: Pain Femur R 2V Stat Stat 14:18 09/06/2024 14:19 16:15 Luis Leblanc D.O. 09/06/2024 09/06/2024 Brannon Edwards, 1 of 2 Order Sheet R.N. R.N. Reason for Study: Thigh Injury STAFF ORDERS Order Description Priority Entered Acknowledged Collected Completed [Electronically signed by Luis Leblanc D.O. (09/06/2024 16:04 EST)] 2 of 2 Normal [facility] ED PHYSICIAN CLINICAL REPORT on 09-06-2024 ED PHYSICIAN CLINICAL REPORT Narrative Physician Clinical Narrative [address] [place] [address] [id number] 09/06/2024 Patient: SABIHA WEBBER Sex: Male : [...] Leblanc D.O. 09/06/24 16:04:18 EST) Generated by [facility] 3 of [address] [facility] [address] [facility] BILL 09-06-2024 ED [facility] [address] [place] [address] [id number] 09/06/2024 Patient: SABIHA WEBBER Sex: Male : 1940 Age: 83y Item Professional Category Description Facility Code Code Quantity Fee Total Nurse/E/M EMERGENCY 708985 1 $0.00 $0.00 DEPARTMENT VISIT MODERATE SEVERITY (93571-55) Grand Total $0.00 Providers Luis Leblanc D.O. [...] initial encounter 2 of 2 Normal [facility] ED VISIT SUMMARYon ED VISIT SUMMARY Visit Overview Visit Overview [address] [place] [address] [id number] 09/06/2024 Patient: SABIHA WEBBER Sex: Male : [...] BY STUMBLING 3 of 3 Normal [facility] ED VITALS FLOW SHEETon 09-06 ED VITALS FLOW SHEET Vitals Vital Sign Flow Sheet [address] [address] [id number] 09/06/2024 Patient: SABIHA WEBBER Sex: Male : 1940 Age: 83y Measurements Wt: 72.6 kg Measured Time BP MAP HR RR O2Sat ETCO2 Temp Pain GCS RTS 16:57 09/06/2024 124/79 94 72 16 96% 98.0 F 1 14:10 09/06/2024 143/81 102 87 18 95% 98.9 F 6 1 of 1 Normal [facility] FEMUR RT 2+ VIEWSon 09-06-20 FEMUR RT 2+ VIEWS [address] [address] Patient: SABIHA WEBBER Phone#: : 1940 Age: 83 Gender: M Pt. Type: ER Account: [id number] Location: 052 Ordering: LUIS LEBLANC Exam Date: 09/06/2024/14:47 Family Phys: BUTROS LATOUF Charge Code: 058161 Physician: Lyon Order #: [id number] Dose#: PROCEDURE: X-RAY FEMUR RT MIN 2 [...] MD on 09/06/2024 at 22:03 Normal [facility] KNEE COMPLETE RT MIN 4 VIEWS on 09-06-2024 KNEE COMPLETE RT MIN 4 VIEWS [place] [address] Patient: SABIHA WEBBER Phone#: : 1940 Age: 83 Gender: M Pt. Type: ER Account: [id number] Location: 052 Ordering: LUIS LEBLANC Exam Date: 09/06/2024/14:38 Family Phys: BUTROS LATOUF Charge Code: 504694 Physician: Lyon Order #: [id number] Dose#: PROCEDURE: X-RAY KNEE RT COMPLETE 4 VIEWS COMPARISON: None. INDICATIONS: Pain. FINDINGS: BONES: Normal. No significant arthropathy or acute abnormality. SOFT TISSUES: Negative. No visible soft tissue swelling. EFFUSION: None visible. OTHER: Negative. CONCLUSION: No acute disease. Dictated by: Luly Zambrano MD on 09/06/2024 at 22:01 Approved by: Luly Zambrano MD on 09/06/2024 at 22:01 Normal [facility] CBC + DIFFon 07-31-2024 Baso # 0.02 x10EE3/UL Normal 0.00 - 0.10 [facility] Comment on above: Performed By: #### 2 95979 ####[facility],[address] [place] [address] 77840 Basophils/100 WBC (Bld) 0.3 % Normal 0.0 - 2.0 [facility] Comment on above: Performed By: #### 2 20181 ####[facility],[address] [place] [address] CBC + DIFF Normal [facility] Comment on above: Result Comment: CBC- COMPLETE BLOOD COUNT Performed By: #### 2 52409 ####[facility],[address] [place] [address] EO # 0.03 x10EE3/UL Normal 0.00 - 0.50 [facility] Comment on above: Performed By: #### 2 89331 ####[facility],[address] [place] [address] 25947 Eosinophils/100 WBC (Bld) 0.5 % Normal 0.0 - 7.0 [facility] Comment on above: Performed By: #### 2 80519 ####[facility],[address] [place] [address] Erythrocyte distribution width (RBC) [Ratio] 13.6 % Normal 12.0 - 15.6 [facility] Comment on above: Performed By: #### 2 95366 ####[facility],[address] [place] [address] Hematocrit (Bld) [Volume fraction] 43.5 % Normal 40.0 - 52.0 [facility] Comment on above: Performed By: #### 2 90747 ####[facility],[address] [place] [address] 97580 Hemoglobin (Bld) [Mass/Vol] 14.7 g/dL Normal 13.0 - 17.5 [facility] Comment on above: Performed By: #### 2 75698 ####[facility],[address] [place], [place] [address] Lymph # 0.99 x10EE3/UL Normal 0.80 - 2.80 [facility] Comment on above: Performed By: #### 2 32168 ####[facility],[address] [place] [address] 07046 Lymphocytes/100 WBC (Bld) 13.4 % Low 20.0 - 45.0 [facility] Comment on above: Performed By: #### 2 29112 ####[facility],[address] [place] [address] MANUAL DIFF N/A Normal [facility] Comment on above: Performed By: #### 2 85090 ####[facility],[address] [place] [address] MCH (RBC) [Entitic mass] 34 pg High 27 - 33 [facility] Comment on above: Performed By: #### 2 68969 ####[facility],[address] [place] [address] MCHC 34 X10 3 Normal 32 - 36 [facility] Comment on above: Performed By: #### 2 59230 ####[facility],[address] [place], [place] [address] MCV (RBC) [Entitic vol] 100 fL High 81 - 98 [facility] Comment on above: Performed By: #### 2 79219 ####[facility],[address] [place] [address] Rhea # 0.60 x10EE3/UL Normal 0.20 - 1.00 [facility] Comment on above: Performed By: #### 2 09548 ####[address] [address] MONOS % 8.0 % Normal 0.0 - 10.0 [facility] Comment on above: Performed By: #### 2 45340 ####[facility],[address] [place] [address] 77452 Morphology Yao (Bld) [Interp] N/A Normal [facility] Comment on above: Performed By: #### 2 45500 ####[facility],[address] [place] [address] 06688 Neut # 5.79 x10EE3/UL Normal 1.50 - 7.10 [facility] Comment on above: Performed By: #### 2 18518 ####[facility],[address] [place] [address] 39621 Neutrophils/100 WBC (Bld) 77.9 % High 46.0 - 76.0 [facility] Comment on above: Performed By: #### 2 32487 ####[facility],[address] [place] [address] 73778 PLATELET 198 x10EE3/UL Normal 150 - 450 [facility] Comment on above: Performed By: #### 2 46763 ####[facility],[address] [place] [address] 06975 Platelet mean volume (Bld) [Entitic vol] 8.8 fL Normal 6.4 - 10.5 [facility] Comment on above: Result Comment: AUTO MATED DIFFERENTIAL Performed By: #### 2 10369 ####[facility],[address] [place] [address] 69516 RBC 4.33 x 10EE6/UL Low 4.50 - 6.00 [facility] Comment on above: Performed By: #### 2 61095 ####[facility],[address] [place] [address] 85066 WBC 7.4 x 10EE3/UL Normal 4.5 - 10.8 [facility] Comment on above: Performed By: #### 2 91467 ####[facility],[address] [place] [address] 01065 CMP with eGFRon 07-31-2024 AGE 83 years Normal [facility] Comment on above: Performed By: #### 2 66456 #### [facility],[address] [place] [address] 18248 Albumin [Mass/Vol] 3.7 g/dL Normal 3.4 - 5.0 [facility] Comment on above: Performed By: #### 2 11756 #### [facility],[address] [place] [address] Albumin/Globulin [Mass ratio] 1.0 {ratio} Normal 0.9 - 1.6 [facility] Comment on above: Performed By: #### 2 61263 #### [facility],[address] [place] [address] ALK PHOS 109 U/L Normal 46 - 116 [facility] Comment on above: Performed By: #### 2 15300 #### [facility],[address] [place] [address] ALT [Catalytic activity/Vol] 25 U/L Normal 16 - 63 [facility] Comment on above: Performed By: #### 2 10068 #### [facility],[address] [place] [address] Anion gap [Moles/Vol] 12 mmol/L Normal 10 - 20 [facility] Comment on above: Performed By: #### 2 85697 #### [facility],[address] [place] [address] AST [Catalytic activity/Vol] 23 U/L Normal 15 - 37 [facility] Comment on above: Performed By: #### 2 86892 #### [facility],[address] [place] [address] B/C RATIO 22 ratio Normal 0 - 30 [facility] Comment on above: Performed By: #### 2 24877 #### [facility],[address] [place] [address] 79714 Bilirubin [Mass/Vol] 0.7 mg/dL Normal 0.2 - 1.0 [facility] Comment on above: Performed By: #### 2 85416 #### [facility],[address] [place] [address] 44771 Calcium [Mass/Vol] 9.7 mg/dL Normal 8.5 - 10.1 [facility] Comment on above: Performed By: #### 2 22242 #### [facility],[address] [place], [place] [address] Chloride [Moles/Vol] 105 mmol/L Normal 98 - 107 [facility] Comment on above: Performed By: #### 2 45255 #### [facility],[address] [place] [address] CMP with eGFR Normal [facility] Comment on above: Result Comment: COMP REHENSIVE METABOLIC PANEL Performed By: #### 2 89203 #### [facility],[address] [place] [address] CO2 [Moles/Vol] 29.1 mmol/L Normal 21.0 - 32.0 [facility] Comment on above: Performed By: #### 2 96431 #### [facility],[address] [place], [place] [address] Creatinine [Mass/Vol] 1.22 mg/dL Normal 0.70 - 1.30 [facility] Comment on above: Performed By: #### 2 52139 #### [facility],[address] [place] [address] eGFR 57 ML/MINUTE Low 60 - 999 [facility] Comment on above: Performed By: #### 2 71659 #### [facility],[address] [place], [place] [address] GFR/1.73 sq M.predicted among non-blacks MDRD (S/P/Bld) [Vol rate/Area] mL/min/{1.73_m2} Normal 60 - 999 [facility] Comment on above: Result Comment: ACCO RDING TO THE NATIONAL KIDNEY DISEASE EDUCATION PROGRAM(NKDE), A NORMAL eGFR IS A VALUE GREATER THAN OR EQUAL TO 60 ML/MIN/1.73 SQ METERS. CHRONIC KIDNEY DISEASE: <60mL/MIN/1.73 SQ METERS KIDNEY FAILURE: <15mL/MIN/1.73 SQ METERS THIS TEST SHOULD ONLY BE USED FOR PATIENTS 18 YEARS OF AGE AND OLDER. Performed By: #### 2 84573 #### [facility],[address] [place] [address] 47254 Globulin (S) [Mass/Vol] 3.7 g/dL Normal 1.5 - 3.8 [facility] Comment on above: Performed By: #### 2 66681 #### [facility],[address] [place] [address] 53243 Glucose [Mass/Vol] 97 mg/dL Normal 74 - 106 [facility] Comment on above: Performed By: #### 2 40471 #### [facility],[address] [place] [address] 64211 Potassium [Moles/Vol] 4.9 mmol/L Normal 3.5 - 5.1 [facility] Comment on above: Performed By: #### 2 32447 #### [facility],[address] [place] [address] 56129 Protein [Mass/Vol] 7.4 g/dL Normal 6.4 - 8.2 [facility] Comment on above: Performed By: #### 2 53594 #### [facility],[address] [place] [address] 56369 Sodium [Moles/Vol] 141 mmol/L Normal 136 - 145 [facility] Comment on above: Performed By: #### 2 25109 #### [facility],[address] [place] [address] 05247 Urea nitrogen [Mass/Vol] 27 mg/dL High 7 - 18 [facility] Comment on above: Performed By: #### 2 75419 #### [facility],[address] [place] [address] 71110 No Panel InformationOrdered By: Blake Gonzalez on 09-26-2023 Estimated GFR (MDRD) Amer 76 mL/min >60 [facility] Comment on above: GFR Calc Estimated GFR (MDRD) Non-Af Amer 63 mL/min >60 [facility] Comment on above: Non- GFR Calc Serum or plasma creatinine m easurement (mass/volume)Ordered By: Blake Gonzalez on 09-26-2023 Creatinine [Mass/Vol] 1.18 mg/dL 0.70-1.30 [facility] Comment on above: The validity of the calculated GFR & GFRAA in patients over 70 years has not been determined. Clinical correlation is essential. Vital Signs Date Time Vital Sign Value Performing Clinician Facility 06-09-2025 16:10-0400 Body temperature 98.2 [degF] Reanna Diaz PA Work Phone: [facility] 06-09-2025 16:10-0400 Body weight 61.23 kg Reanna Diaz PA Work Phone: [facility] 06-09-2025 16:10-0400 Diastolic blood pressure 79 mm[Hg] Reanna Diaz PA Work Phone: [facility] 06-09-2025 16:10-0400 Heart rate 86 /min Reanna Diaz PA Work Phone: [facility] 06-09-2025 16:10-0400 Respiratory rate 16 /min Reanna Diaz PA Work Phone: [facility] 06-09-2025 16:10-0400 SaO2% (BldA) [Mass fraction] 95 % Reanna Diaz PA Work Phone: [facility] 06-09-2025 16:10-0400 Systolic blood pressure 144 mm[Hg] Reanna Diaz PA Work Phone: [facility] 12-20-2023 14:47-0400 Body temperature 97.39 [degF] Cristina Elias [employer]AURANT ARE[employer] MANAGER.LABOR UTILIZATION SUPERINTENDENT Work Phone: [facility] 12-20-2023 14:47-0400 Body weight 62.9 kg Cristina Elias RESTAURANT AREA MANAGER.LABOR UTILIZATION SUPERINTENDENT Work Phone: [facility] 12-20-2023 14:47-0400 Diastolic blood pressure 61 mm[Hg] Cristina Elias RESTAURANT AREA MANAGER.LABOR UTILIZATION SUPERINTENDENT Work Phone: [facility] 12-20-2023 14:47-0400 Heart rate 74 /min Cristina Praisler-Wood RESTAURANT AREA MANAGER.LABOR UTILIZATION SUPERINTENDENT Work Phone: [facility] 12-20-2023 14:47-0400 Respiratory rate 18 /min Cristina Praisler-Wood RESTAURANT AREA MANAGER.LABOR UTILIZATION SUPERINTENDENT Work Phone: [facility] 12-20-2023 14:47-0400 SaO2% (BldA) [Mass fraction] 99 % Cristina Praisler-Wood RESTAURANT AREA MANAGER.LABOR UTILIZATION SUPERINTENDENT Work Phone: [facility] 12-20-2023 14:47-0400 Systolic blood pressure 92 mm[Hg] Cristina Praisler-Wood RESTAURANT AREA MANAGER.LABOR UTILIZATION SUPERINTENDENT Work Phone: [facility] 09-26-2023 13:14-0500 Body temperature 98.4 [degF] Dr. Blake Gonzalez Work Phone: [facility] 09-26-2023 13:14-0500 Body weight 59.[address] Blake Gonzalez Work Phone: [facility] 09-26-2023 13:14-0500 Diastolic blood pressure 76 mm[Hg] Dr. Blake Gonzalez Work Phone: [facility] 09-26-2023 13:14-0500 Heart rate 74 /min Dr. Blake Gonzalez Work Phone: [facility] 09-26-2023 13:14-0500 Respiratory rate 16 /min Dr. Blake Gonzalez Work Phone: [facility] 09-26-2023 13:14-0500 SaO2% (BldA) [Mass fraction] 96 % Dr. Blake Gonzalez Work Phone: [facility] 09-26-2023 13:14-0500 Systolic blood pressure 148 mm[Hg] Dr. Blake Gonzalez Work Phone: [facility] Encounters Encounter Date Encounter Type Care Provider Facility Start: 07-25-2025 End: 07-27-2025 ambulatory VIRGIE [employer] MANAGER SEFF[facility] Start: 07-01-2025 End: 07-01-2025 [facility] Start: 06-09-2025 End: 06-09-[address] Blake Gonzalez MD -[facility] Work Phone: Start: 06-09-2025 End: 06-09-2025 ambulatory Blake Gonzalez Facility:[facility] Start: 04-26-2025 Non-patient / Non-visit Dr. Blake yuen MD -[facility] Start: 04-26-2025 End: 04-26-2025 ambulatory Reanna POSEY Work Phone: -[facility] Start: 04-26-2025 End: 04-26-2025 Patient encounter procedure Reanna POSEY -[facility] Work Phone: Start: 04-26-2025 End: 04-26-2025 ambulatory Reanna Diaz Facility:[facility] Start: 04-08-2025 End: 04-08-2025 ambulatory TOMEKA GOMES [facility] Start: 01-13-2025 End: 01-13-2025 [facility] Start: 12-17-2024 End: 12-17-2024 ambulatory CODY DELANEY [facility] Start: 12-11-2024 ambulatory CODY DELANEY [facility] Start: 10-28-2024 ambulatory Cody Crowrobert Facility: [facility] Start: 10-28-2024 End: 10-28-2024 ambulatory [facility] Facility:[facility] Start: 10-16-2024 End: 10-16-2024 ambulatory TOMEKA GOMES [facility] Start: 09-06-2024 End: 09-06-2024 [facility] Start: 07-31-2024 End: 07-31-2024 ambulatory TOMEKA GOMES [facility] Start: 12-20-2023 End: 12-20-2023 Patient encounter procedure Cristina LevinOsvaldo ARMSTRONG Work Phone: [facility] Comment on above: Viral URI with cough (Primary Dx) Start: 10-11-2023 Non-patient / Non-visit Dr. Boo Delaney Work Phone: [facility] Start: 10-11-2023 End: 10-11-[address] Cody Delaney Work Phone: [facility] Work Phone: Start: 10-11-2023 End: 10-11-[address] Cody Delaney Work Phone: [facility] Work Phone: Start: 09-26-2023 End: 09-26-[address] Blake Gonzalez Work Phone: [facility] Work Phone: Start: 09-26-2023 End: 09-26-[address] Blake Gonzalez Work Phone: [facility] Work Phone: Start: 09-26-2023 End: 09-26-[address] Blake Gonzalez Work Phone: [facility] Work Phone: Start: 08-16-2023 Emergency department patient visit BRENNAN BARROS [facility] Procedures Date Procedure Procedure Detail Performing Clinician Start: 07-26-2025 Urinalysis TOMEKA ROSALVA ANKI Comment on above: Result Comment: URIN ALYSIS Performed By: #### 2 18605 ####[facility],[address] [place] [address] Start: 07-25-2025 Urinalysis TOMEKA ROSALVA ANKI Comment on above: Result Comment: URIN ALYSIS Performed By: #### 2 [id number] #### [facility],[address] [facility] [address] Start: 10-11-2023 CT angiography of he ad and neck Dr. Cody Delaney Work Phone: Plan of Treatment Date Care Activity Detail Author Start: 05-17-2024 Influenza vaccination Influenza Vaccine (Season Ended) [facility] Start: 09-16-2023 Advance Directive Discussion Advance Directive Discussion [place] [facility] Start: 09-16-2023 Behavioral Health Screening Behavioral Health Screening [facility] Start: 05-17-2023 Covid-19 Vaccine ( season) Covid-19 Vaccine ( season) [facility] Start: 2005 Pneumococcal Vaccine: 65+ (1 of 1 - PCV) Pneumococcal Vaccine: 65+ (1 of 1 - PCV) [facility] Start: 2000 RSV Vaccine (1 - 1-dose 60+ series) RSV Vaccine (1 - 1-dose 60+ series) [facility] Start: 1990 Shingrix Vaccine (1 of 2) Shingrix Vaccine (1 of 2) [facility] Start: 1985 Diabetes Screening Diabetes Screening [facility] Start: 12-16-1959 Urine microalbumin profile DTaP,Tdap,Td Vaccine (1 - Tdap) [facility] Ankle brachial press ure index [facility] CTA Head vessels and Neck vessels W contrast IV [facility] US Carotid arteries [facility] Payers Date Payer Category Payer Self-pay 2023 Unknown [employer]IMETIME [employer] H[employer] POS [id number] 2023-Present [phone] [address] [place] [address] O [id number] 2010 Unknown [id number] 1940 Unknown [id number] 1940 Unknown [id number] [id number] 1940 Unknown [id number] [id number] 1940 Unknown [id number] [id number] 1940 Unknown [id number] 2.16.840.1.018637.3.579.2.651 1940 Unknown [id number] 2.16.840.1.897010.3.579.2.651 1940 Unknown [id number] 2.16.840.1.721037.3.579.2.651 1940 Unknown [id number] [id number] 1940 Unknown [id number] 2.16.840.1.291535.3.579.2.651 Unknown [id number] 2.16.840.1.374227.3.579.2.462 Unknown [id number] [id number] Unknown [id number] 2.16.840.1.230766.3.579.2.462 Unknown [id number] [id number] Unknown [id number] [id number] Social History Date Type Detail Facility [facility] Start: 1940 Sex Assigned At Male [facility] Start: 12-20-2023 [facility] tobacco [facility] Start: 12-20-2023 Tobacco use and exposure Smokeless tobacco non-user [facility] Start: 12-20-2023 History of Social function [facility] Start: 12-20-2023 Tobacco use panel [facility] Start: 1940 Sex Assigned At Not on file [facility] Start: 10-16-2023 Tobacco smoking stat us NHIS Current some day smoker [facility] Clinical Notes 12-20-2023 to 07-25-2025 Note [...] Locations *1: This test was performed at: [address], [facility] , [facility] 07-25-2025 Note . MICRO - Microbiology [...] Locations *1: This test was performed at: [address], [address] [place] [address] 06-09-2025 Progress note [facility] 06-09-2025 Progress note Note Date/Time June 09, 2025 4:29pm [facility] [address] [place] [address] OFFICE VISIT Date of Service: 06/09/25 MR#: [id number] Acct: [id number] Name: SABIHA WEBBER Rep #: [id number] : 1940 Provider: Dr. Blake Gonzalez MD Age/Sex: 84/M Location: [facility] Status: Signed Intake Vital Signs [...] fallen in the past year?: Yes 06/10/25 [id number] <Electronically signed by Blake Lynn> Date _ Blake Joel Signature: Date (if applicable) CC: ~ [facility] Work Phone: 1(920) 536-822312-22-2024 NoteDischarge Instructions Discharge Summary [address] [place] [address] [id number] 09/06/2024 Patient: SABIHA WEBBER Sex: Male : 1940 Age: 83y Thank you for visiting [facility]. You have been evaluated today by Luis [...] Fall Lower Extremity Bruise Patient Signature Facility Fingerprint Clerk Date/Time 1 of 5 Discharge Instructions General Instructions with ExitWriter [address] [place] [address] [id number] 09/06/2024 Patient: SABIHA WEBBER Sex: Male : 1940 Age: 83y Thank you for visiting [facility]. You have been evaluated today by Luis [...] in preventing falls. If (more content not included)...[facility]04-05-2024 Instructions* Patient Instructions* Cristina Elias APRN.LABOR UTILIZATION SUPERINTENDENT - 12/20/2023 3:07 PM EDT ASSESSMENT/PLAN: 1. [...] fluids help open respiratory and sinus passages [place] [facility] [place] may offer relief of nasal and head [...] worse rather than better [facility] History of Present illness Narrative* Bess [...] testing, patient declined. CHERYL Brand TEACHING PROVIDER (Physician/PA/RESTAURANT AREA MANAGER) NOTE OF PERSONAL INVOLVEMENT IN CARE: I have personally seen and examined the patient and performed the medical decision-making components. I have reviewed the Advanced Practice Registered Nurse (RESTAURANT AREA MANAGER) Student's documentation and verified the findings in the note as written. Any additions or changes are noted in bold/italics. Signature: Cristina Elias Date: 12/20/2023 Time: 3:21 PM [facility]* Diagnosis Onset Date Resolution Status Carotid stenosis, right chrome polisher rikki [facility] Work Phone: Evaluation note* Diagnosis Viral URI with cough- Primary Acute upper respiratory infections of unspecified site documented in this encounter [facility] noteNo assessment information availableWPro[facility]ica [facility] Work Phone: Evaluation note* Diagnosis Onset Date Resolution Status Admit Date Carotid stenosis, right chronic S eptember 2024 3:59pm [facility] Work Phone: Reason for referral (narrative)No reason for referral information availableWProMedica [facility] Work Phone: Summary Purpose Family History [...] content) DATE CREATED AUTHOR 08/19/2023 Brannon Carmichael [facility] DATE CREATED AUTHOR AUTHOR'S ORGANIZ ATION 12/20/2024 [facility] DATE CREATED AUTHOR AUTHOR'S ORGANIZ ATION 06/11/2025 [facility] DATE CREATED AUTHOR AUTHOR'S ORGANIZ ATION 07/26/2025 [facility] DATE CREATED AUTHOR AUTHOR'S ORGANIZ ATION 07/28/2025 [facility] Care Teams (unrecognized sec tion and [...] or prosecute any alcohol or drug abuse patient.[facility] Reason for Visit (unrecogniz ed section [...] BE BASED ON THE PRIMARY CLINICAL RECORDS. [employer] provides no warranty or guarantee of the accuracy or completeness of information in this document.
--- NOTE | 2025-09-08 08:41 | EX.ED.GUMALE ---
HPI History of Present Illness Chief Complaint: Complaint Narrative Narrative: Patient is a 84 year old male presenting to the ED for difficulty urinating. PMHX of BPH, PVD, HTN. Patient had a laparoscopic prostatectomy on 09/[address] Maravilla and was discharged on the after his Ortiz was removed and he was able to urinate. Was started on cipro on 09/01 post op and has been taking this as prescribed. He had a follow-up yesterday with Dr. Maravilla and at that time he was able to urinate normally. He states sometime last night he started only being able to urinate small dribbles. He notes no hematuria. Endorsed dysuria prior to this. He endorses lower abdominal discomfort. Denies fever, chills, nausea, vomiting. Denies scrotal swelling or pain. Denies penile pain or lesions. [facility] Medical History Wears glasses Fall Ambulates with cane Walker as ambulation aid Rheumatoid arthritis UTI (urinary tract infection) Prostate disease Indwelling urethral catheter present High cholesterol Back pain Shingles Former smoker History of pain when walking Elevated serum creatinine Glaucoma Benign prostatic hyperplasia Home Medications ?Medication ?Instructions ?Recorded ?Last Taken ?Type acetaminophen 650 mg 650 mg PO Q8H PRN pain 02/25/23 09/03/25 22:00 History tablet,extended release (Tylenol Arthritis Pain) folic acid 1 mg tablet 2 mg PO DAILY vitamin 02/25/23 09/04/25 08:00 History 2 mg latanoprost 0.005 % 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 02/25/23 09/03/25 22:00 History methotrexate sodium 2.5 mg tablet 12.5 mg PO WE RA 02/25/23 09/01/25 08:00 History atorvastatin 40 mg tablet 40 mg PO QHS #30 tabs 12/08/24 09/02/25 22:00 Rx lutein 20 mg capsule 20 mg PO QDAY vitamin 06/09/25 09/04/25 06:00 History tramadol 50 mg tablet 50 mg PO TID PRN PRN pain 08/27/25 Unknown History ciprofloxacin HCl 500 mg tablet 500 mg PO BID #14 tabs 09/01/25 09/04/25 08:00 Rx docusate sodium 100 mg capsule 100 mg PO BID #20 caps 09/01/25 09/03/25 22:00 Rx (Colace) gabapentin 100 mg capsule 100 mg PO BID shingles 09/01/25 09/03/25 22:00 History 100 mg oxycodone 5 mg tablet 5 mg PO Q6H PRN pain 7 days #20 09/01/25 09/04/25 18:00 Rx tabs Allergy/AdvReac Type Severity Reaction Status Date / Time No Known Allergies Allergy Verified 09/08/25 08:20 Family History Father Myocardial infarction Mother CVA (cerebral vascular accident) Brother Cancer lung ca. Sister COPD (chronic obstructive pulmonary disease) Sister Dementia Other Sudden cardiac Surgical History Hx of colonoscopy History of prostate surgery H/O inguinal hernia repair (~2010) H/O cataract extraction (~2015) Social History Smoking Status: Former smoker ROS ROS ED ROS Narrative see HPI EXAM Physical Exam Narrative Exam Narrative: Vital signs: Reviewed General: Alert and oriented x 3. No acute distress. Chronically ill-appearing, nontoxic HEENT: Head is normocephalic and atraumatic, sinuses nontender, pupils equal round and reactive. Nares are patent. Oropharynx and throat exams normal. Neck: Supple without lymphadenopathy nontender Cardiovascular: Regular rate and rhythm, no murmurs. No rubs or gallops. Normal S1 and S2 Respiratory: Clear to auscultation bilaterally. No wheezes, rales, rhonchi Abdominal: Soft. There is healing ecchymosis around the umbilicus that is expected postop. There is a small laparoscopic incisional site that is healing appropriately with no signs of cellulitis or abscess around. Palpable bladder with suprapubic tenderness to palpation. Abdomen is otherwise nontender to palpation. Normal bowel sounds. No guarding or rebound. Extremities: No tenderness. No bruising. Normal range of motion. Normal sensation. Skin: No rash or redness. The rest of the physical exam is unremarkable Const Vital Signs: 09/08/25 08:20 09/08/25 10:20 09/08/25 11:58 Temperature 96.6 F L 96.6 F L Temperature Source Temporal Pulse Rate 95 77 81 Respiratory Rate 16 14 18 Blood Pressure 141/47 H 131/76 H 128/65 H Blood Pressure Mean 78 94 86 Pulse Ox 98 97 96 Oxygen Delivery Method Room Air Room Air 09/08/25 12:00 Temperature 96.6 F L Temperature Source Pulse Rate 81 Respiratory Rate 18 Blood Pressure 128/65 H Blood Pressure Mean 86 Pulse Ox 96 Oxygen Delivery Method MDM MDM MDM Narrative Medical decision making narrative: Patient is a 84-year-old male presenting to the emergency department for urinary retention postop day 7 from a lap prostatectomy. Patient was seen and examined. Vitals are stable. Patient resting bed comfortably no acute distress. Will obtain a postvoid residual bladder scan to determine need for Ortiz catheter placement. Will obtain basic labs and urinalysis to evaluate for any JARRELL or UTI. Will touch base with the patient's surgeon, Dr. Maravilla. Patient was unable to void here and bladder scan with 303 ml. Ortiz catheter placed by nursing staff. CBC with no leukocytosis and chronic anemia of 9.9 actually improved from 2 days ago. BMP with hyponatremia that was seen previously at 130. BUN and creatinine mildly elevated at 37 and 1.41 respectively which is seen on prior labs. Urinalysis with evidence of urinary tract infection with nitrites, leukocyte esterase, WBC and bacteria. After the Ortiz catheter was placed, patient had significant improvement in his suprapubic abdominal pain. I reevaluated him and he is nontender on exam. Urine is draining light pink-colored with some small clots. Patient is not on any oral anticoagulation. I tried to contact the patient's urologist, Dr. Maravilla multiple times to discuss the patient and to have close follow up but he did not return my calls. He is not oracle distribution consultant at this time. I will send the urine for culture, patient is currently on ciprofloxacin that was started when he was discharged so he is only on day 2 and I would expect his urine to still look infected. Will discharge with Ortiz catheter in place given the urinary retention and hematuria on inspection of the urine at bedside. This was discussed with patient and daughters at bedside and they feel comfortable with the plan. I recommended that they call on Saturday since today's Kate Marva and tomorrow's [place] and his office will not be open for follow-up as soon as possible. I recommended returning if he develops any fever, chills, nausea, vomiting, abdominal pain, the catheter clots off or the urine changes to a dark red color. They understand and are agreeable. Patient discharged from the Emergency Department. I do not feel that the patient's evaluation reveals any acute reason for admission at this time. I instructed them to either follow-up with their primary care physician or promptly return to the Emergency Department for reevaluation should symptoms worsen or new symptoms develop. I explained what symptoms would indicate the need to return to the emergency department. Shared decision making was used. The patient voiced understanding of the treatment plan and is agreeable with it. Clinical impression: Urinary retention Hematuria UTI History & Record Review Discussion w/independent historian: Patient and Family Additional record(s) reviewed:: Prior inpatient record Lab Data Attestation: I reviewed the patient's lab results. Labs: Laboratory Results - last 24 hr 09/08/25 09/08/25 09:00 09:18 WBC 6.6 RBC 2.96 L Hgb 9.9 L Hct 29.1 L MCV 98.3 H MCH 33.4 H MCHC 34.0 RDW Std Deviation 46.5 H RDW Coeff of Jaky 13.1 Plt Count 144 L MPV 9.3 Immature Gran % (Auto) 0.800 Neut % (Auto) 87.7 H Lymph % (Auto) 6.7 L [place] % (Auto) 4.4 Eos % (Auto) 0.2 Baso % (Auto) 0.2 Absolute Neuts (auto) 5.8 Absolute Lymphs (auto) 0.44 L Nucleated RBC % 0 Sodium 130 L Potassium 4.4 Chloride 98 Carbon Dioxide 19.5 L Anion Gap 13 BUN 37 H Creatinine 1.41 H Estim Creat Clear Calc 33.21 L Est GFR (MDRD) Non-Af 49 L BUN/Creatinine Ratio 26.2 H Glucose 97 Calcium 8.3 Urine Color SEE COMMENT BELOW Urine Clarity Cloudy Urine pH 6.0 Ur Specific [place] 1.015 Urine Protein 100 H Urine Glucose (UA) Normal Urine Ketones Negative Urine Occult Blood 250 H Urine Nitrite Positive H Urine Bilirubin Negative Urine Urobilinogen Normal Ur Leukocyte Esterase 500 H Urine RBC > 100 SEEN Urine WBC >100 SEEN Ur Squamous Epith Cells 0 SEEN Amorphous Sediment 1+ URATE Urine Bacteria 1+ Urine Mucus 0 SEEN Discharge Plan Triage Chief Complaint: Complaint ED Provider: Yaritza Lombardi Dx/Rx/DC Orders Clinical Impression: Urinary retention, Hematuria, UTI (urinary tract infection) Instructions: What is Hematuria?, ED Urinary Retention, Male, ED Bladder Infection, Male (Adult) Prescriptions: No Action folic acid 1 mg tablet 2 mg PO DAILY acetaminophen [Tylenol Arthritis Pain] 650 mg tablet extended release 650 mg PO Q8H PRN (Reason: pain) latanoprost 0.005 % drops 1 drp ophthalmic (eye) QPM Rx Instructions: both eyes methotrexate sodium 2.5 mg tablet 12.5 mg PO WE lutein 20 mg capsule 20 mg PO QDAY Rx Instructions: give with meal/snack tramadol 50 mg tablet 50 mg PO TID PRN PRN (Reason: pain) gabapentin 100 mg capsule 100 mg PO BID oxycodone 5 mg tablet 5 mg PO Q6H PRN (Reason: pain) 7 Days Qty: 20 0RF ciprofloxacin HCl 500 mg tablet 500 mg PO BID Qty: 14 0RF docusate sodium [Colace] 100 mg capsule 100 mg PO BID Qty: 20 0RF atorvastatin 40 mg tablet 40 mg PO QHS Qty: 30 5RF Primary Care Provider: Care Physician,No Primary Referrals: Issac Maravilla MD [Med Staff - Active Staff, Urology] - As soon as possible Care Physician,No Primary [Primary Care Provider, Medical] Activity Restrictions/Additional Instructions: Follow-up with Dr. Maravilla as soon as possible. Continue taking your antibiotics as prescribed. You can discuss the urine culture results once they come back at your appointment that you schedule with him. You will need to leave the catheter in until follow-up. Return if you develop any fever, chills, nausea, vomiting, worsening blood in the urine or abdominal pain. Your evaluation in the Emergency Department did not reveal any acute reason for admission. However, I want to emphasize that you may be early in the course of a disease process or illness even if it is not present. For this reason you should follow-up within 24 hours for reevaluation with either your primary care physician or if necessary back here in the Emergency Department. You should return to the Emergency Department immediately if your symptoms worsen or new symptoms develop. Print Language: Sami Disposition Disposition: Home, Self Care Discharge Date/Time: 09/08/25 12:01
[2025-09-08 09:09] LABS: Hematocrit 29.1 % (40-54); Hemoglobin 9.9 g/dL (13.0-16.5); Immature Granulocytes Count 0.050 X10^3/uL (0.0-0.0); Mean Corp Hgb Conc 34.0 g/dL (32-36); Mean Corpuscular Volume 98.3 fL (80-94); Mean Platelet Vol. 9.3 fl (6.2-12.0); NRBC Flagged by Analyzer 0 % (0-5); POSITIVE DIFFERENTIAL YES; Platelet Count 144 K/mm3 (150-450); RBC Distribution Width CV 13.1 % (11.6-14.6); RBC Distribution Width SD 46.5 fl (35.1-43.9); Red Blood Count 2.96 M/mm3 (4.6-6.2); White Blood Count 6.6 K/mm3 (4.4-11.0)
[2025-09-08 09:16] VITALS: BMI 22.1
[2025-09-08 09:21] LABS: Mucous, Urine 0 SEEN /hpf (<or=2+); Squamous Epithelial Cells - UA 0 SEEN /hpf (0-5)
[2025-09-08 09:25] LABS: Glucose, Dipstick Normal (Normal); Ketone-Dipstick Negative (Negative); Leukocyte Esterase-Dipstick 500 /ul (Negative); Nitrite-Dipstick Positive (Negative); Occult Blood-Urine 250 /ul (Negative); Protein-Dipstick 100 mg/dl (Negative); Specific Gravity, Urine 1.015 (1.002-1.030); Urine Bilirubin Dipstick Negative (Negative)
[2025-09-08 09:26] LABS: Color, Urine SEE COMMENT BELOW (Yellow)
[2025-09-08 09:30] LABS: Anion Gap 13 (7-18); BUN 37 mg/dL (4-19); BUN/Creat Ratio 26.2 RATIO (10-20); Calcium,Total 8.3 mg/dL (7.6-11.0); Carbon Dioxide 19.5 mmol/L (20.0-29.0); Chloride 98 mmol/L (96-106); Estimated Creatinine Clearance 33.21 ml/min (50-250); Glucose 97 mg/dL (70-99); Potassium 4.4 mmol/L (3.5-5.1)
[2025-09-08 09:32] LABS: Red Blood Cells-Urine > 100 SEEN /hpf (0-5)
[2025-09-08 10:20] VITALS: BP 131/76; PULSE 77; RESP 14; O2SAT 97
[2025-09-08 11:58] VITALS: BP 128/65; PULSE 81; RESP 18; TEMP 35.9; O2SAT 96
[2025-09-08 12:00] VITALS: BP 128/65; PULSE 81; RESP 18; TEMP 35.9; O2SAT 96
== END 2025-09-08 12:01 | disposition home or self-care (01) ==
PROVIDERS: Emergency Provider Student in an Organized Health Care Education/Training Program; Visit Provider Student in an Organized Health Care Education/Training Program
DX: N39.0 Urinary tract infection, site not specified (principal); R33.9 Retention of urine, unspecified; R31.9 Hematuria, unspecified; Z87.891 Personal history of nicotine dependence
CPT/HCPCS: 51702; 80048; 81001; 85025; 87086; 99284